=== PATIENT | female | born 1960 | race African-American/Black ===

== ENCOUNTER 2018-06-22 09:42 | Emergency (ER) | payer OTHER ==
[2018-06-22] MEDS ORDERED: NA CHLORIDE 0.9% 1,000 ML ONE (10:43)
--- NOTE | 2018-06-22 10:57 | RAD REPORT ---
EXAM DESCRIPTION: CT - Head Brain Wo Cont - 06/22/2018 10:45 am CLINICAL HISTORY: hypertension Headache COMPARISON: HEAD BRAIN W O CONTRAST dated 12/23/2013; HEAD BRAIN W O CONTRAST dated 04/18/2008 TECHNIQUE: All CT scans are performed using dose optimization technique as appropriate and may inclu de automated exposure control or mA/KV adjustment according to patient size. FINDINGS: No intracranial hemorrhage, hydrocephalus or extra-axial fluid collection.No areas of brai n edema or evidence of midline shift. The paranasal sinuses and mastoids are clear. The calvarium is intact. IMPRESSION: No acute intracranial abnormality.
[2018-06-22 11:14] LABS: Urine Blood 2+ (NEG); Urine Glucose NEGATIVE (NEG); Urine Protein 2+ (NEG)
[2018-06-22] MEDS ORDERED: cloNIDine HCl 0.1 MG TAB ONE (11:18)
[2018-06-22] MEDS ORDERED: ASPIRIN 81 MG CHEWABLE TABLET ONE (11:18)
[2018-06-22] MEDS ORDERED: AMLODIPINE 5 MG TAB ONE (11:18)
--- NOTE | 2018-06-22 11:50 | RAD REPORT ---
EXAM DESCRIPTION: RAD - Chest Single View - 06/22/2018 11:26 am CLINICAL HISTORY: hypertension Chest pain. COMPARISON: Chest Single View dated 02/17/2018; Chest Pa And Lat (2 Views) dated 06/02/2017; Chest Pa And Lat (2 Views) dated 03/08/2016; CHEST SINGLE VIEW dated 08/11/2015 FINDINGS: Portable technique limits examination quality. The lungs are grossly clear. The heart is mildly prominent size with a tortuous thoracic aorta. No di splaced fractures. IMPRESSION: No acute intrathoracic process suspected.
[2018-06-22 12:44] LABS: Absolute Lymphocytes (CBC) 1.6 K/uL (0.7-4.9); Absolute Monocytes 0.4 K/uL (0.1-1.3); Absolute Neutrophil 6.3 K/uL (1.8-8.0); Basophils % 0.5 % (0-1.3); Eosinophils % 0.3 % (0-4.4); Hematocrit 41.2 % (36.0-45.0); Lymphocytes % 18.5 % (15.3-44.8); MCH 33.2 pg (27.0-35.0); MCV 94.8 fL (80-100); MPV 7.6 fL (7.6-11.3); Monocytes % 5.2 % (3.3-12.3); Protime INR 1.01; RBC Red Blood Cell Count 4.34 M/uL (3.86-4.86)
[2018-06-22] MEDS ORDERED: HYDRALAZINE HCL 20 MG/ML VIAL ONE (12:53)
[2018-06-22 13:08] LABS: BUN Blood Urea Nitrogen 8 mg/dL (7-18); Bicarbonate 28 mmol/L (21-32); Glucose Level 107 mg/dL (74-106); Potassium 3.1 mmol/L (3.5-5.1); Sodium Level 139 mmol/L (136-145)
[2018-06-22 13:09] LABS: ALT/SGPT 17 U/L (12-78); AST/SGOT 16 U/L (15-37); Albumin 3.2 g/dL (3.4-5.0); Alkaline Phosphatase 67 U/L (45-117); Bilirubin Direct 0.1 mg/dL (0-0.2); Bilirubin Total 0.5 mg/dL (0.2-1.0); CKMB Creatine Kinase MB 1.4 ng/mL (0.3-3.6); Creatine Phosphokinase 99 U/L (26-192); NT PRO-BNP 1542 pg/mL (<125)
[2018-06-22] MEDS ORDERED: POTASSIUM 25 MEQ EFFERV TAB ONE (13:37)
--- NOTE | 2018-06-22 14:02 | EKG ---
Test Date: 2018-06-22 Test Time: 09:50:56 Freight Conductor: VINAY MEASUREMENT RESULTS: Intervals: Rate: 90 OH: 156 QRSD: 84 QT: 394 QTc: 481 [place]: P: 53 OH: 156 QRS: -9 T: 32 INTERPRETIVE STATEMENTS: Normal sinus rhythm Voltage criteria for left ventricular hypertrophy Cannot rule out Septal infarct, age undetermined Abnormal ECG Compared to ECG 02/17/2018 14:39:54 Left ventricular hypertrophy now present Myocardial infarct finding now present Sinus tachycardia no longer present Atrial abnormality no longer present ST (T wave) deviation no longer present Electronically Signed On 06-22-18 14:01:36 CDT by Long Canada
--- NOTE | 2018-06-22 14:03 | ER ---
Nurse's Notes [facility] Name: Afua Cunningham Age: 57 yrs Sex: Female : 1960 Arrival Date: 06/22/2018 Time: 09:49 Bed 18 Private MD: Diagnosis: Hypertensive heart disease Presentation: 06/22 09:50 Presenting complaint: EMS states: been complaining of high blood pressure and weakness hj for a week now, denies headache or any pain; BGL- 138; 98.3 temp; 98% on RA; BP- L arm- 216/135; R arm BP- 229/112; did not take BP meds today and doesn't know the meds name;. Transition of care: patient was not received from another setting of care. Onset of symptoms was June 22, 2018. Risk Assessment: Do you want to hurt yourself or someone else? Patient reports no desire to harm self or others. Initial Sepsis Screen: Does the patient meet any 2 criteria? No. Patient's initial sepsis screen is negative. Does the patient have a suspected source of infection? No. Patient's initial sepsis screen is negative. Care prior to arrival: None. 09:50 Method Of Arrival: EMS: [facility] 09:50 Acuity: ASHA 3 hj Triage Assessment: 09:54 General: Appears in no apparent distress. uncomfortable, Behavior is calm, cooperative, hj appropriate for age. Pain: Denies pain. EENT: No signs and/or symptoms were reported regarding the EENT system. Neuro: Level of Consciousness is awake, alert, obeys commands, Oriented to person, place, time, situation, Appropriate for age. Cardiovascular: Capillary refill < 3 seconds Patient's skin is warm and dry. Respiratory: Airway is patent Respiratory effort is even, unlabored, Respiratory pattern is regular, symmetrical. GI: No signs and/or symptoms were reported involving the gastrointestinal system. : No signs and/or symptoms were reported regarding the genitourinary system. Derm: No signs and/or symptoms reported regarding the dermatologic system. Musculoskeletal: No signs and/or symptoms reported regarding the musculoskeletal system. Historical: - Allergies: 09:54 No Known Allergies; hj - Home Meds: 09:54 amlodipine 10 mg tab 1 tab once daily [Active]; carvedilol 6.25 mg Oral tab [Active]; hj losartan 100 mg Oral tab 1 tab once daily [Active]; pantoprazole 20 mg Oral TbEC [Active]; trazodone 100 mg Oral tab [Active]; venlafaxine Oral [Active]; - PMHx: 09:54 Anxiety; Asthma; Back pain; Depression; fx in middle of back; GERD; Hypertension; hj - PSHx: 09:54 Tubal ligation; right eye; cyst removed from ears; hj - Immunization history:: Adult Immunizations up to date. - Social history:: Smoking status: Patient/guardian denies using tobacco. - Ebola Screening: : Patient negative for fever greater than or equal to 101.5 degrees Fahrenheit, and additional compatible Ebola Virus Disease symptoms Patient denies exposure to infectious person Patient denies travel to an Ebola-affected area in the 21 days before illness onset. Screenin:52 Abuse screen: Denies threats or abuse. Denies injuries from another. Nutritional hj screening: No deficits noted. Tuberculosis screening: No symptoms or risk factors identified. Fall Risk None identified. Assessment: 11:13 General: Appears in no apparent distress. comfortable, Behavior is calm, cooperative, aj appropriate for age. Pain: Denies pain. Neuro: Level of Consciousness is awake, alert, obeys commands, Oriented to person, place, time, situation, Appropriate for age Robotics Systems Engineer are equal bilaterally Moves all extremities. Full function Gait is steady, Speech is normal, Facial symmetry appears normal, Pupils are PERRLA, Reports weakness Generalized weakness for 3 days, reported. Respiratory: Airway is patent Respiratory effort is even, unlabored, Respiratory pattern is regular, symmetrical. Derm: Skin is intact, is healthy with good turgor, Skin is pink, warm \\T\\ dry. normal. 13:12 Reassessment: Patient wheeled to nurses station and used phone to call daughter. aj Wheeled back to room and placed in bed on monitors. 14:15 Reassessment: Patient is refusing to leave stating "I'm too weak to sign and too weak aj to leave." Patient observed walking to nurses station and bathroom 4 different times. Alert and oriented. Patient dialed phone and called daughter at nurses station twice. 14:18 Reassessment: Charge nurse notified. aj 14:40 Reassessment: pt initially refused to get out of bed upon discharge, pt stated that she iw could not move because she was too weak, pt was observed moving her legs freely in bed, pt sat up on her own in bed, pt then stated that she was going to walk to the bathroom but she was going to come back to the room, I advised pt that she would be sent to [facility] after using the bathroom, pt was walked to the lobby after using the bathroom, I asked pt is she would like something to eat and drink and that I would call her daughter again, I also offered to get pt a bus coupon, pt stated that she would wait for me to bring her the coupon. I received a phone call back from her daughter Martha and was told that the daughter would be by the pt house at 6 pm to check on her and that the pt is very capable of riding the bus on her own. I went to check pn pt, she was not in waiting area and was not in parking lot. Vital Signs: 09:55 BP 234 / 121; Pulse 90; Resp 18; Temp 98.1(O); Pulse Ox 99% on R/A; Weight 76.2 kg; hj Height 5 ft. 4 in. (162.56 cm); Pain 0/10; 11:13 BP 220 / 112; Pulse 88; Resp 20; Pulse Ox 98% on R/A; aj 11:14 BP 225 / 100; Pulse 87; Resp 17; Pulse Ox 96% on R/A; ae1 11:47 BP 218 / 102; Pulse 86; Resp 18; Pulse Ox 98% on R/A; ae1 12:00 BP 206 / 102; Pulse 89; Resp 16; Pulse Ox 98% on R/A; ae1 12:50 BP 184 / 89; Pulse 79; Resp 17; Pulse Ox 99% on R/A; ae1 13:14 BP 172 / 73; Pulse 92; Resp 20; Pulse Ox 99% on R/A; aj 14:15 BP 163 / 86; Pulse 88; Resp 16; Pulse Ox 99% on R/A; aj 09:55 Body Mass Index 28.84 (76.20 kg, 162.56 cm) ED Course: 09:49 Patient arrived in ED. 09:52 Triage completed. 09:55 Arm band placed on right wrist. 09:55 Patient has correct armband on for positive identification. Placed in gown. Bed in low hj position. Call light in reach. Side rails up X 1. 09:59 Shayne Russ PA is PHCP. cp 09:59 Shayne Hobbs MD is Attending Physician. cp 10:02 EKG done, by licensed psychiatric technician. reviewed by Shayne Hobbs MD. at1 10:34 Osorio Acosta, RN is Primary Nurse. hj 10:44 CT completed. Patient tolerated procedure well. Patient moved to CT via wheelchair. vr Patient moved back from CT. 10:45 CT Head Brain wo Cont In Process Unspecified. EDMS 11:14 Inserted saline lock: 22 gauge in right wrist, using aseptic technique. Missed aj attempt(s): 20 gauge in right antecubital area. Bleeding controlled, band aid applied, catheter tip intact. 11:23 X-ray completed. Portable x-ray completed in exam room. Patient tolerated procedure la2 well. 11:26 XRAY Chest (1 view) In Process Unspecified. EDMS 14:02 Long Canada MD is Referral Physician. cp 14:15 IV discontinued, intact, bleeding controlled, No redness/swelling at site. Pressure aj dressing applied. 14:40 No provider procedures requiring assistance completed. iw Administered Medications: 11:15 Drug: Norvasc 10 mg Route: PO; ae1 11:15 Drug: cloNIDine 0.2 mg Route: PO; ae1 11:15 Drug: Aspirin Chewable Tablet 324 mg Route: PO; ae1 11:22 Drug: NS 0.9% 500 ml Route: IV; Rate: bolus; Site: right hand; ae1 11:53 Follow up: IV Status: Completed infusion ae1 11:52 Drug: NS 0.9% 1000 ml Route: IV; Rate: 100 ml/hr; Site: right hand; ae1 12:50 Drug: hydrALAZINE 10 mg Route: IV; Rate: calculated rate; Site: right antecubital; aj 13:38 Drug: Potassium Effervescent Tablet 50 mEq Route: PO; aj Outcome: 14:02 Discharge ordered by . cp 14:40 Discharged to home ambulatory. iw 14:40 Condition: good 14:40 Discharge instructions given to patient, Instructed on discharge instructions, follow up and referral plans. Demonstrated understanding of instructions, follow-up care. 14:43 Patient left the ED. iw Signatures: Dispatcher [employer] EDMS Neli Keita, RN RN Bernadette Holman, RN RN Amber Vega Amanda, slackline operator EKG Tat1 Osorio Acosta, RN RN Shayne Chapman PA PA cp Elliott, Andrea RN RN ae1 Ruthie Anderson
--- NOTE | 2018-06-22 14:03 | EDPHYS ---
Physician Documentation [facility] Name: Afua Cunningham Age: 57 yrs Sex: Female : 1960 Arrival Date: 06/22/2018 Time: 09:49 Bed 18 Private MD: ED Physician Shayne Hobbs HPI: 06/22 10:38 This 57 yrs old Black Female presents to ER via EMS with complaints of High Blood cp Pressure. 10:38 The patient has elevated blood pressure and discovered this at home. Associated signs cp and symptoms: Pertinent positives: weakness, Pertinent negatives: chest pain, headache, vomiting. Severity of symptoms: At its worst the blood pressure was 234 mm Hg, in the emergency department the blood pressure is unchanged, despite home interventions. Historical: - Allergies: 09:54 No Known Allergies; hj - Home Meds: 09:54 amlodipine 10 mg tab 1 tab once daily [Active]; carvedilol 6.25 mg Oral tab [Active]; hj losartan 100 mg Oral tab 1 tab once daily [Active]; pantoprazole 20 mg Oral TbEC [Active]; trazodone 100 mg Oral tab [Active]; venlafaxine Oral [Active]; - PMHx: 09:54 Anxiety; Asthma; Back pain; Depression; fx in middle of back; GERD; Hypertension; hj - PSHx: 09:54 Tubal ligation; right eye; cyst removed from ears; hj - Immunization history:: Adult Immunizations up to date. - Social history:: Smoking status: Patient/guardian denies using tobacco. - Ebola Screening: : Patient negative for fever greater than or equal to 101.5 degrees Fahrenheit, and additional compatible Ebola Virus Disease symptoms Patient denies exposure to infectious person Patient denies travel to an Ebola-affected area in the 21 days before illness onset. ROS: 10:45 Constitutional: Negative for body aches, chills, fever, poor PO intake. cp 10:45 Eyes: Negative for injury, pain, redness, and discharge. cp 10:45 ENT: Negative for drainage from ear(s), ear pain, sore throat, difficulty swallowing, difficulty handling secretions. 10:45 Cardiovascular: Negative for chest pain, edema, palpitations. 10:45 Respiratory: Negative for cough, shortness of breath, wheezing. 10:45 Abdomen/GI: Negative for abdominal pain, vomiting, diarrhea, constipation, black/tarry stool, rectal bleeding. 10:45 MS/extremity: Negative for injury or acute deformity, decreased range of motion, paresthesias, swelling, tenderness. 10:45 Skin: Negative for cellulitis, rash. 10:45 Neuro: Positive for general weakness, Negative for headache, syncope, near syncope, visual changes. 10:45 All other systems are negative. Exam: 10:00 ECG was reviewed by the Attending Physician. cp 10:52 Constitutional: The patient appears in no acute distress, alert, awake, non-toxic, well cp developed, well nourished. 10:52 Head/Face: Normocephalic, atraumatic. cp 10:52 Eyes: Periorbital structures: appear normal, Pupils: equal, round, and reactive to light and accomodation, Extraocular movements: intact throughout, Conjunctiva: normal, no exudate, no injection, Lids and lashes: appear normal, bilaterally. 10:52 ENT: External ear(s): are unremarkable, Ear canal(s): are normal, clear, TM's: bulging, is not appreciated, bilaterally, dullness, bilaterally, erythema, is not appreciated, bilaterally, Nose: is normal, Mouth: Lips: moist, Oral mucosa: pink and intact, moist, Posterior pharynx: is normal, airway is patent, no erythema, no exudate. 10:52 Neck: ROM/movement: is normal, is supple, without pain, no range of motions limitations, no nuchal rigidity, Lymph nodes: no appreciated lymphadenopathy. 10:52 Chest/axilla: Inspection: normal, Palpation: is normal, no crepitus, no tenderness. 10:52 Cardiovascular: Rate: normal, Rhythm: regular, Pulses: Pulses are 2+ in right radial artery and left radial artery. Edema: is not appreciated, JVD: is not appreciated. 10:52 Respiratory: the patient does not display signs of respiratory distress, Respirations: normal, no use of accessory muscles, no retractions, no splinting, no tachypnea, Breath sounds: are clear throughout, no decreased breath sounds, no stridor, no wheezing. 10:52 Abdomen/GI: Inspection: abdomen appears normal, Bowel sounds: active, all quadrants, Palpation: abdomen is soft and non-tender, in all quadrants, rebound tenderness, is not appreciated, voluntary guarding, is not appreciated, involuntary guarding, is not appreciated. 10:52 Back: pain, is absent, ROM is normal. 10:52 Skin: cellulitis, is not appreciated, no rash present. 10:52 Neuro: Orientation: to person, place \T\ time. Mentation: lucid, able to follow commands, Cerebellar function: is grossly normal, Motor: moves all fours, strength is normal, Sensation: no obvious gross deficits. Vital Signs: 09:55 BP 234 / 121; Pulse 90; Resp 18; Temp 98.1(O); Pulse Ox 99% on R/A; Weight 76.2 kg; hj Height 5 ft. 4 in. (162.56 cm); Pain 0/10; 11:13 BP 220 / 112; Pulse 88; Resp 20; Pulse Ox 98% on R/A; aj 11:14 BP 225 / 100; Pulse 87; Resp 17; Pulse Ox 96% on R/A; ae1 11:47 BP 218 / 102; Pulse 86; Resp 18; Pulse Ox 98% on R/A; ae1 12:00 BP 206 / 102; Pulse 89; Resp 16; Pulse Ox 98% on R/A; ae1 12:50 BP 184 / 89; Pulse 79; Resp 17; Pulse Ox 99% on R/A; ae1 13:14 BP 172 / 73; Pulse 92; Resp 20; Pulse Ox 99% on R/A; aj 14:15 BP 163 / 86; Pulse 88; Resp 16; Pulse Ox 99% on R/A; aj 09:55 Body Mass Index 28.84 (76.20 kg, 162.56 cm) MDM: 10:04 Patient medically screened. mar 11:00 Differential diagnosis: hypertensive crisis, Malignant HTN, CVA, intracerebral cp hemorrhage. 14:00 Data reviewed: vital signs, nurses notes, lab test result(s), EKG, radiologic studies, cp CT scan, plain films. 14:00 Test interpretation: by ED physician or midlevel provider: ECG, plain radiologic cp studies. 14:00 Response to treatment: the patient's symptoms have markedly improved after treatment, cp VSS. Blood pressure improved. No signs of respiratory distress. Will discharge to home for continued monitoring. 06/22 10:34 Order name: Basic Metabolic Panel; Complete Time: 13:22 cp 06/22 13:22 Interpretation: Normal except: K 3.1; GLUC 107; CA 8.4. cp 06/22 10:34 Order name: CBC with Diff; Complete Time: 13:22 cp 06/22 13:24 Interpretation: Normal except: SAÚL% 75.5. cp 06/22 10:34 Order name: Ckmb; Complete Time: 13:22 cp 06/22 10:34 Order name: CPK; Complete Time: 13:22 cp 06/22 10:34 Order name: LFT's; Complete Time: 13:22 cp 06/22 13:23 Interpretation: Normal except: ALB 3.2; GLOB 3.8; A/G 0.8. cp 06/22 10:34 Order name: Magnesium; Complete Time: 13:22 cp 06/22 10:34 Order name: NT PRO-BNP; Complete Time: 13:22 cp 06/22 13:59 Interpretation: Abnormal: NT PRO-BNP 1542. cp 06/22 10:34 Order name: PT-INR; Complete Time: 13:22 cp 06/22 10:34 Order name: Ptt, Activated; Complete Time: 13:22 cp 06/22 10:34 Order name: Troponin (emerg Dept Use Only); Complete Time: 13:55 cp 06/22 10:34 Order name: XRAY Chest (1 view); Complete Time: 11:59 cp 06/22 12:00 Interpretation: Report review. 06/22 10:34 Order name: CT Head Brain wo Cont; Complete Time: 11:59 cp 06/22 10:56 Order name: Urine Dipstick--Ancillary (enter results); Complete Time: 11:59 06/22 11:59 Interpretation: Normal except: UBLD 2+; UPROT 2+. cp 06/22 10:34 Order name: Urine Test (obtain specimen); Complete Time: 11:23 cp 06/22 10:34 Order name: EKG; Complete Time: 10:34 cp 06/22 10:34 Order name: Cardiac monitoring; Complete Time: 10:35 cp 06/22 10:34 Order name: EKG - Nurse/Tech; Complete Time: 10:35 cp 06/22 10:34 Order name: IV Saline Lock; Complete Time: 11:22 cp 06/22 10:34 Order name: Labs collected and sent; Complete Time: 11:23 cp 06/22 10:34 Order name: O2 Per Protocol; Complete Time: 10:35 cp 06/22 10:34 Order name: O2 Sat Monitoring; Complete Time: 10:35 cp 06/22 10:34 Order name: Urine Dipstick-Ancillary (obtain specimen); Complete Time: 11:23 cp 06/22 11:18 Order name: Labs - recollect needed bd EC:00 Rate is 90 beats/min. Rhythm is regular. MS interval is normal. QRS interval is normal. cp QT interval is normal. T waves are Inverted in lead III. Interpreted by me. Reviewed by me. Administered Medications: 11:15 Drug: Norvasc 10 mg Route: PO; ae1 11:15 Drug: cloNIDine 0.2 mg Route: PO; ae1 11:15 Drug: Aspirin Chewable Tablet 324 mg Route: PO; ae1 11:22 Drug: NS 0.9% 500 ml Route: IV; Rate: bolus; Site: right hand; ae1 11:53 Follow up: IV Status: Completed infusion ae1 11:52 Drug: NS 0.9% 1000 ml Route: IV; Rate: 100 ml/hr; Site: right hand; ae1 12:50 Drug: hydrALAZINE 10 mg Route: IV; Rate: calculated rate; Site: right antecubital; aj 13:38 Drug: Potassium Effervescent Tablet 50 mEq Route: PO; aj Disposition: 06/23 07:17 Co-signature as Attending Physician, Shayne Hobbs MD I agree with the assessment and mar plan of care. Disposition: 06/22/18 14:02 Discharged to Home. Impression: Hypertensive heart disease. - Condition is Stable. - Discharge Instructions: Hypertension, How to Take Your Blood Pressure, [id number], Managing Your Hypertension. - Medication Reconciliation Form, Thank You Letter, Antibiotic Education, Prescription Opioid Use form. - Follow up: Long Canada MD; When: 1 - 2 days; Reason: Recheck today's complaints. - Problem is chronic. - Symptoms have improved. Signatures: Dispatcher [employer] EDMS Honey Currie Amanda, RN RN aj Anderson, Corey, MD MD cha Williams, Irene, RN RN iw Joaquin, Henry, RN RN hj Page, Corey, PA PA cp Elliott, Andrea, RN RN ae1 Corrections: (The following items were deleted from the chart) 06/22 13:22 13:22 Normal except: K 3.1; GLUC 107. cp cp 14:43 14:02 06/22/2018 14:02 Discharged to Home. Impression: Hypertensive heart disease. iw Condition is Stable. Forms are Medication Reconciliation Form, Thank You Letter, Antibiotic Education, Prescription Opioid Use. Follow up: Long Canada; When: 1 - 2 days; Reason: Recheck today's complaints. Problem is chronic. Symptoms have improved. cp
[2018-06-22 14:53] VITALS: O2SAT 99
[2018-06-22 14:55] VITALS: BP 163/86
[2018-06-22 14:59] VITALS: TEMP 98.2
== END 2018-06-22 14:43 | disposition home or self-care (01) ==
LOC: ER 09:42
DX: I11.9 Hypertensive heart disease without heart failure (principal); I10 Essential (primary) hypertension; F32.9 Major depressive disorder, single episode, unspecified; F41.9 Anxiety disorder, unspecified
CPT/HCPCS: 36415; 70450; 71045; 80048; 80076; 81003; 82550; 82553; 83735; 83880; 84484; 85025; 85610; 85730; 93005; J0360; J7030; 96361; 96374; 99284

== ENCOUNTER 2018-07-21 14:52 | Emergency (ER) | payer OTHER ==
--- NOTE | 2018-07-21 15:29 | RAD REPORT ---
EXAM DESCRIPTION: RAD - Lumbar Spine 3 Views - 07/21/2018 3:23 pm CLINICAL HISTORY: PAIN Radiculopathy COMPARISON: Lumbar Spine 3 Views dated 11/10/2017; LUMBAR SPINE 3 VIEWS dated 02/20/2009; SPINE LUMBA R W OBLIQUE dated 01/08/1990 FINDINGS: Diffuse osteopenia is seen. Mild degenerative anterolisthesis of L4 on 5 is seen. No acute compression fracture observed. Mild spondylosis is noted at L2-3. IMPRESSION: No acute finding demonstrated.
--- NOTE | 2018-07-21 15:30 | RAD REPORT ---
EXAM DESCRIPTION: RAD - Pelvis - 07/21/2018 3:23 pm CLINICAL HISTORY: PAIN COMPARISON: No comparisons FINDINGS: Degenerative changes are present involving both hips. No acute fracture or dislocation. No AVN.
[2018-07-21 15:40] LABS: Urine Blood 2+ (NEG); Urine Glucose NEGATIVE (NEG); Urine Protein 1+ (NEG); Urine Specific Gravity >1.030 (1.005-1.030)
[2018-07-21 16:14] LABS: Urine Bacteria NONE SEEN /HPF (<20); Urine Culture Reflex Order NOT NEEDED; Urine Mucus 1+ /HPF (NONE SEEN)
[2018-07-21] MEDS ORDERED: HYDROCODONE/APAP 10/325 TAB ONE (16:19)
--- NOTE | 2018-07-21 16:19 | ER ---
Nurse's Notes [facility] Name: Afua Cunningham Age: 57 yrs Sex: Female : 1960 Arrival Date: 07/21/2018 Time: 14:53 Bed 10 Private MD: Teto Atkinson E Diagnosis: Fall due to bumping against object;Low back pain;Hematuria;Hematuria, unspecified Presentation: 07/21 15:00 Presenting complaint: Patient states: I slipped and fell, hurt my lower back 8 days ch ago. it hurts when I move and walk. Transition of care: patient was not received from another setting of care. Onset of symptoms was July 13, 2018. Risk Assessment: Do you want to hurt yourself or someone else? Patient reports no desire to harm self or others. Initial Sepsis Screen: Does the patient meet any 2 criteria? No. Patient's initial sepsis screen is negative. Does the patient have a suspected source of infection? No. Patient's initial sepsis screen is negative. Care prior to arrival: None. 15:00 Method Of Arrival: Ambulatory 15:00 Acuity: ASHA 3 ch Triage Assessment: 15:02 General: Appears in no apparent distress. comfortable, Behavior is calm, cooperative, ch appropriate for age. Pain: Complains of pain in back Pain currently is 10 out of 10 on a pain scale. Musculoskeletal: Range of motion: intact in all extremities, Swelling absent. Historical: - Allergies: 15:02 No Known Allergies; ch - Home Meds: 15:02 amlodipine 10 mg tab 1 tab once daily [Active]; carvedilol 6.25 mg Oral tab [Active]; ch losartan 100 mg Oral tab 1 tab once daily [Active]; pantoprazole 20 mg Oral TbEC [Active]; trazodone 100 mg Oral tab [Active]; venlafaxine Oral [Active]; - PMHx: 15:02 Anxiety; Asthma; Back pain; Depression; fx in middle of back; GERD; Hypertension; UTI; ch - Immunization history:: Adult Immunizations up to date, Last tetanus immunization: not indicated for visit today. Pneumococcal vaccine is not up to date, Flu vaccine is not up to date. - Social history:: Smoking status: Patient uses tobacco products, smokes one pack cigarettes per day. Patient uses alcohol, Patient/guardian denies using street drugs. - Ebola Screening: : Patient negative for fever greater than or equal to 101.5 degrees Fahrenheit, and additional compatible Ebola Virus Disease symptoms Patient denies exposure to infectious person Patient denies travel to an Ebola-affected area in the 21 days before illness onset No symptoms or risks identified at this time. - Family history:: not pertinent. Screenin:35 Abuse screen: Denies threats or abuse. Denies injuries from another. Nutritional aj screening: No deficits noted. Tuberculosis screening: No symptoms or risk factors identified. Fall Risk None identified. Assessment: 15:35 General: Appears in no apparent distress. comfortable, Behavior is calm, cooperative, aj appropriate for age. Pain: Complains of pain in lumbar area, low back area and mid back area. Neuro: Level of Consciousness is awake, alert, obeys commands, Oriented to person, place, time, situation, Appropriate for age. Respiratory: Airway is patent Respiratory effort is even, unlabored, Respiratory pattern is regular, symmetrical. Derm: Skin is intact, is healthy with good turgor, Skin is pink, warm \T\ dry. normal. Musculoskeletal: Reports pain in low back area and mid back area. 16:35 Reassessment: Patient appears in no apparent distress at this time. No changes from aj previously documented assessment. Patient and/or family updated on plan of care and expected duration. Pain level reassessed. Patient is alert, oriented x 3, equal unlabored respirations, skin warm/dry/pink. Patient states symptoms have improved. Vital Signs: 15:02 BP 154 / 90; Pulse 88; Resp 16; Temp 98.3; Pulse Ox 99% on R/A; Weight 71.67 kg; Height 5 ft. 1 in. (154.94 cm); Pain 10/10; 16:35 BP 149 / 89; Pulse 87; Resp 19; Pulse Ox 96% on R/A; aj 15:02 Body Mass Index 29.85 (71.67 kg, 154.94 cm) ED Course: 14:53 Patient arrived in ED. sb2 14:54 Teto Atkinson MD is Private Physician. sb2 15:01 Triage completed. ch 15:02 Arm band placed on left wrist. 15:21 XRAY Lumbar Spine (3 Views) In Process Unspecified. EDMS 15:21 Shayne Hobbs MD is Attending Physician. [facility] 15:23 XRAY Pelvis In Process Unspecified. EDMS 15:35 Neli Keita, RN is Primary Nurse. aj 15:35 Patient has correct armband on for positive identification. aj 16:19 Teto Atkinson MD is Referral Physician. [facility] 16:35 No provider procedures requiring assistance completed. Patient did not have IV access aj during this emergency room visit. Administered Medications: 16:23 Drug: [place] 10 mg-325 mg 1 tabs Route: PO; aj 16:36 Follow up: Response: No adverse reaction; Pain is decreased aj Outcome: 16:19 Discharge ordered by . [facility] 16:35 Discharged to home ambulatory. aj 16:35 Condition: good 16:35 Discharge instructions given to patient, Instructed on discharge instructions, follow up and referral plans. medication usage, Demonstrated understanding of instructions, follow-up care, medications, Prescriptions given X 3. 16:37 Patient left the ED. aj Signatures: Dispatcher [employer] EDCarol Fox RN RN ch Myers, Amanda, CAROLINA RN Shayne Harris MD MD cha Billeau, Sheri sb2
--- NOTE | 2018-07-21 16:19 | EDPHYS ---
Physician Documentation [facility] Name: Afua Cunningham Age: 57 yrs Sex: Female : 1960 Arrival Date: 07/21/2018 Time: 14:53 Bed 10 Private MD: Teto Atkinson E ED Physician Shayne Hobbs HPI: 07/21 16:08 This 57 yrs old Black Female presents to ER via Ambulatory with complaints of Back Pain.mar 16:08 The patient presents with pain that is acute. The symptoms are located in the low back, mar lumbar area and sacrum. Onset: The symptoms/episode began/occurred 8 day(s) ago. The pain does not radiate. Associated signs and symptoms: The patient has no apparent associated signs or symptoms. Modifying factors: The patient symptoms are alleviated by remaining still, the patient symptoms are aggravated by movement. Severity of symptoms: At their worst the symptoms were mild, moderate, in the emergency department the symptoms are unchanged. The patient has not experienced similar symptoms in the past. Historical: - Allergies: 15:02 No Known Allergies; ch - Home Meds: 15:02 amlodipine 10 mg tab 1 tab once daily [Active]; carvedilol 6.25 mg Oral tab [Active]; ch losartan 100 mg Oral tab 1 tab once daily [Active]; pantoprazole 20 mg Oral TbEC [Active]; trazodone 100 mg Oral tab [Active]; venlafaxine Oral [Active]; - PMHx: 15:02 Anxiety; Asthma; Back pain; Depression; fx in middle of back; GERD; Hypertension; UTI; ch - Immunization history:: Adult Immunizations up to date, Last tetanus immunization: not indicated for visit today. Pneumococcal vaccine is not up to date, Flu vaccine is not up to date. - Social history:: Smoking status: Patient uses tobacco products, smokes one pack cigarettes per day. Patient uses alcohol, Patient/guardian denies using street drugs. - Ebola Screening: : Patient negative for fever greater than or equal to 101.5 degrees Fahrenheit, and additional compatible Ebola Virus Disease symptoms Patient denies exposure to infectious person Patient denies travel to an Ebola-affected area in the 21 days before illness onset No symptoms or risks identified at this time. - Family history:: not pertinent. ROS: 16:08 Constitutional: Negative for fever, chills, and weight loss, Eyes: Negative for injury, mar pain, redness, and discharge, ENT: Negative for injury, pain, and discharge, Neck: Negative for injury, pain, and swelling, Cardiovascular: Negative for chest pain, palpitations, and edema, Respiratory: Negative for shortness of breath, cough, wheezing, and pleuritic chest pain, Abdomen/GI: Negative for abdominal pain, nausea, vomiting, diarrhea, and constipation, : Negative for injury, bleeding, discharge, and swelling, MS/Extremity: Negative for injury and deformity, Skin: Negative for injury, rash, and discoloration, Neuro: Negative for headache, weakness, numbness, tingling, and seizure, Psych: Negative for depression, anxiety, suicide ideation, homicidal ideation, and hallucinations, Allergy/Immunology: Negative for hives, rash, and allergies, Endocrine: Negative for neck swelling, polydipsia, polyuria, polyphagia, and marked weight changes, Hematologic/Lymphatic: Negative for swollen nodes, abnormal bleeding, and unusual bruising. 16:08 Back: Positive for decreased range of motion, pain at rest, pain with movement, of the lumbar area and sacrum. Exam: 16:08 Constitutional: This is a well developed, well nourished patient who is awake, alert, mar and in no acute distress. Head/Face: Normocephalic, atraumatic. Eyes: Pupils equal round and reactive to light, extra-ocular motions intact. Lids and lashes normal. Conjunctiva and sclera are non-icteric and not injected. Cornea within normal limits. Periorbital areas with no swelling, redness, or edema. ENT: Nares patent. No nasal discharge, no septal abnormalities noted. Tympanic membranes are normal and external auditory canals are clear. Oropharynx with no redness, swelling, or masses, exudates, or evidence of obstruction, uvula midline. Mucous membranes moist. Neck: Trachea midline, no thyromegaly or masses palpated, and no cervical lymphadenopathy. Supple, full range of motion without nuchal rigidity, or vertebral point tenderness. No Meningismus. Chest/axilla: Normal chest wall appearance and motion. Nontender with no deformity. No lesions are appreciated. Cardiovascular: Regular rate and rhythm with a normal S1 and S2. No gallops, murmurs, or rubs. Normal PMI, no JVD. No pulse deficits. Respiratory: Lungs have equal breath sounds bilaterally, clear to auscultation and percussion. No rales, rhonchi or wheezes noted. No increased work of breathing, no retractions or nasal flaring. Abdomen/GI: Soft, non-tender, with normal bowel sounds. No distension or tympany. No guarding or rebound. No evidence of tenderness throughout. Female : Normal external genitalia. Skin: Warm, dry with normal turgor. Normal color with no rashes, no lesions, and no evidence of cellulitis. MS/ Extremity: Pulses equal, no cyanosis. Neurovascular intact. Full, normal range of motion. Neuro: Awake and alert, GCS 15, oriented to person, place, time, and situation. Cranial nerves II-XII grossly intact. Motor strength 5/5 in all extremities. Sensory grossly intact. Cerebellar exam normal. Normal gait. Psych: Awake, alert, with orientation to person, place and time. Behavior, mood, and affect are within normal limits. 16:08 Back: pain, that is mild, that is moderate, ROM is painful, normal spinal alignment noted, CVA tenderness, is absent, vertebral tenderness, is not appreciated, muscle spasm, is appreciated in the left low back, left mid back, right mid back and right low back. Vital Signs: 15:02 BP 154 / 90; Pulse 88; Resp 16; Temp 98.3; Pulse Ox 99% on R/A; Weight 71.67 kg; Height ch 5 ft. 1 in. (154.94 cm); Pain 10/10; 16:35 BP 149 / 89; Pulse 87; Resp 19; Pulse Ox 96% on R/A; aj 15:02 Body Mass Index 29.85 (71.67 kg, 154.94 cm) MDM: 15:21 Patient medically screened. [facility] 16:08 Data reviewed: vital signs, nurses notes, lab test result(s), radiologic studies, plain mar films. 07/21 15:38 Order name: Urine Dipstick--Ancillary (enter results); Complete Time: 15:41 bd 07/21 15:44 Order name: Urine Microscopic Only; Complete Time: 16:19 mar 07/21 15:04 Order name: XRAY Lumbar Spine (3 Views); Complete Time: 15:41 07/21 15:04 Order name: XRAY Pelvis; Complete Time: 15:41 07/21 16:20 Order name: Urine Culture [facility] Administered Medications: 16:23 Drug: [place] 10 mg-325 mg 1 tabs Route: PO; aj 16:36 Follow up: Response: No adverse reaction; Pain is decreased Disposition: 07/21/18 16:19 Discharged to Home. Impression: Fall due to bumping against object, Low back pain, Hematuria, Hematuria, unspecified. - Condition is Stable. - Discharge Instructions: Chronic Back Pain, Hematuria, Adult, Fall Prevention in the Home, Back Injury Prevention, [id number], Back Pain, Adult, [id number], Back Exercises, [id number]. - Prescriptions for Tylenol- Codeine #3 300-30 mg Oral Tablet - take 2 tablets by ORAL route every 6 hours As needed; 26 tablet. Motrin IB 200 mg Oral Tablet - take 1 tablet by ORAL route every 6 hours As needed as needed with food; 20 tablet. Bactrim DS 800- 160 mg Oral Tablet - take 1 tablet by ORAL route every 12 hours for 5 days; 10 tablet. - Medication Reconciliation Form, Thank You Letter, Antibiotic Education, Prescription Opioid Use form. - Follow up: Teto Atkinson; When: 2 - 3 days; Reason: Recheck today's complaints, Continuance of care, Re-evaluation by your physician. - Problem is new. - Symptoms have improved. Signatures: Dispatcher [employer] EDCarol Fox RN RN ch Myers, Amanda, RN RN aj Anderson, Corey, MD MD cha Corrections: (The following items were deleted from the chart) 16:37 16:19 07/21/2018 16:19 Discharged to Home. Impression: Fall due to bumping against object; Low back pain; Hematuria; Hematuria, unspecified. Condition is Stable. Discharge Instructions: Chronic Back Pain, Fall Prevention in the Home, Back Injury Prevention, [id number]-[id number], Back Pain, Adult, Yvhe-[id number], Back Exercises, [id number]-xf-[id number]. Prescriptions for Tylenol-Codeine #3 300-30 mg Oral Tablet - take 2 tablets by ORAL route every 6 hours As needed; 26 tablet, Motrin IB 200 mg Oral Tablet - take 1 tablet by ORAL route every 6 hours As needed as needed with food; 20 tablet. and Forms are Medication Reconciliation Form, Thank You Letter, Antibiotic Education, Prescription Opioid Use. Follow up: Teto Atkinson; When: 2 - 3 days; Reason: Recheck today's complaints, Continuance of care, Re-evaluation by your physician. Problem is new. Symptoms have improved. mar
[2018-07-21 16:51] VITALS: TEMP 98.3
[2018-07-21 16:52] VITALS: BP 149/89; O2SAT 96
== END 2018-07-21 16:37 | disposition home or self-care (01) ==
LOC: ER 14:52
DX: M54.5 Low back pain (principal); R31.9 Hematuria, unspecified; W18.00XA Striking against unspecified object with subsequent fall, initial encounter; Y93.9 Activity, unspecified; Y92.9 Unspecified place or not applicable; I10 Essential (primary) hypertension; F17.210 Nicotine dependence, cigarettes, uncomplicated; F32.9 Major depressive disorder, single episode, unspecified; F41.9 Anxiety disorder, unspecified
CPT/HCPCS: 72100; 72170; 81003; 81015; 87086; 87088; 99283

== ENCOUNTER 2018-08-17 07:30 | Observation (INO) | payer MEDICARE, OTHER ==
[2018-08-17] MEDS ORDERED: ASPIRIN 81 MG CHEWABLE TABLET ONE (08:00)
[2018-08-17] MEDS ORDERED: METOPROLOL TAR 50 MG TAB ONE (08:00)
[2018-08-17] MEDS ORDERED: LORazepam 2 MG/ML VIAL ONE (08:03)
[2018-08-17] MEDS ORDERED: HYDRALAZINE HCL 20 MG/ML VIAL ONE (08:04)
[2018-08-17] MEDS ORDERED: HYDRALAZINE HCL 10 MG TABLET ONE (08:04)
[2018-08-17] MEDS ORDERED: METOPROLOL TARTRATE 5 MG/5 ML INJ IV ONE (08:05)
[2018-08-17] MEDS ORDERED: NA CHLORIDE 0.9% 500 ML ONE (08:05)
[2018-08-17] MEDS ORDERED: FAMOTIDINE 20 MG/2 ML VIAL IV ONE (08:05)
[2018-08-17 08:11] LABS: Absolute Lymphocytes (CBC) 2.2 K/uL (0.7-4.9); Absolute Monocytes 0.5 K/uL (0.1-1.3); Absolute Neutrophil 6.6 K/uL (1.8-8.0); Basophils % 0.7 % (0-1.3); Eosinophils % 0.2 % (0-4.4); Hematocrit 40.7 % (36.0-45.0); Lymphocytes % 24.1 % (15.3-44.8); MCH 33.5 pg (27.0-35.0); MCV 95.6 fL (80-100); MPV 7.7 fL (7.6-11.3); Monocytes % 4.9 % (3.3-12.3); RBC Red Blood Cell Count 4.26 M/uL (3.86-4.86)
[2018-08-17 08:12] LABS: Protime INR 1.08
[2018-08-17 08:30] LABS: ALT/SGPT 24 U/L (12-78); AST/SGOT 23 U/L (15-37); Albumin 3.9 g/dL (3.4-5.0); Alkaline Phosphatase 105 U/L (45-117); BUN Blood Urea Nitrogen 4 mg/dL (7-18); Bicarbonate 29 mmol/L (21-32); Bilirubin Direct 0.1 mg/dL (0-0.2); Bilirubin Total 0.5 mg/dL (0.2-1.0); Glucose Level 129 mg/dL (74-106); Lipase 84 U/L (73-393); Magnesium 1.6 mg/dL (1.8-2.4); NT PRO-BNP 918 pg/mL (<125); Protein, Total 8.1 g/dL (6.4-8.2); Sodium Level 140 mmol/L (136-145); Troponin (Emerg Dept Use Only) < 0.02 ng/mL (0.0-0.045)
[2018-08-17 08:33] LABS: Potassium 2.5 mmol/L (3.5-5.1)
--- NOTE | 2018-08-17 08:38 | ER ---
Nurse's Notes [facility] Name: Afua Cunningham Age: 57 yrs Sex: Female : 1960 Arrival Date: 08/17/2018 Time: 07:30 Bed 7 Private MD: Diagnosis: Chest pain, unspecified;Essential (primary) hypertension;Hypomagnesemia;Hypokalemia Presentation: 08/17 07:30 Presenting complaint: Patient states: "I called the ambulance because I've been feeling aa5 shaky and I haven't eaten in about 3 days because I have no appetite". EMS reports upon arrival pt's BP was 242/137 and most current BP was 212/127. Pt denies N/V/D. Pt denies pain. Transition of care: patient was not received from another setting of care. Onset of symptoms was August 17, 2018. Risk Assessment: Do you want to hurt yourself or someone else? Patient reports no desire to harm self or others. Initial Sepsis Screen: Does the patient meet any 2 criteria? HR > 90 bpm. Does the patient have a suspected source of infection? No. Patient's initial sepsis screen is negative. Care prior to arrival: Glucose check: 101. 07:30 Method Of Arrival: EMS: [facility] aa5 07:30 Acuity: ASHA 2 aa5 Triage Assessment: 10:14 General: Behavior is calm, cooperative. tw2 Historical: - Allergies: 07:34 No Known Allergies; tw2 - Home Meds: 07:34 venlafaxine Oral [Active]; trazodone 100 mg Oral tab [Active]; pantoprazole 20 mg Oral tw2 TbEC [Active]; losartan 100 mg Oral tab 1 tab once daily [Active]; carvedilol 6.25 mg Oral tab [Active]; amlodipine 10 mg tab 1 tab once daily [Active]; - PMHx: 07:34 Anxiety; Asthma; Back pain; Depression; fx in middle of back; GERD; Hypertension; UTI; tw2 - Immunization history:: Adult Immunizations unknown, Flu vaccine is not up to date. - Social history:: Smoking status: Patient uses tobacco products, smokes one pack cigarettes per day. Smoking status: Patient uses tobacco products, smokes one pack cigarettes per day. - Ebola Screening: : Patient denies travel to an Ebola-affected area in the 21 days before illness onset No symptoms or risks identified at this time. Screenin:35 Abuse screen: Denies threats or abuse. Nutritional screening: No deficits noted. tw2 Tuberculosis screening: No symptoms or risk factors identified. Fall Risk None identified. Assessment: 07:35 General: Appears in no apparent distress. Pain: Denies pain. Neuro: Level of tw2 Consciousness is awake, alert, obeys commands, Oriented to person, place, time, situation. Cardiovascular: Denies chest pain, shortness of breath, Heart tones S1 S2 Capillary refill < 3 seconds. Respiratory: Airway is patent Respiratory effort is even, unlabored, Respiratory pattern is regular, symmetrical, Breath sounds are clear bilaterally. GI: No signs and/or symptoms were reported involving the gastrointestinal system. Abdomen is round non-distended, Bowel sounds present X 4 quads. : No signs and/or symptoms were reported regarding the genitourinary system. EENT: No signs and/or symptoms were reported regarding the EENT system. Derm: No signs and/or symptoms reported regarding the dermatologic system. Musculoskeletal: Circulation, motion, and sensation intact. Range of motion: intact in all extremities. 08:18 Reassessment: Patient appears in no apparent distress at this time. No changes from tw2 previously documented assessment. Patient and/or family updated on plan of care and expected duration. Pain level reassessed. Patient is alert, oriented x 3, equal unlabored respirations, skin warm/dry/pink. 09:23 Reassessment: Patient appears in no apparent distress at this time. No changes from tw2 previously documented assessment. Patient and/or family updated on plan of care and expected duration. Pain level reassessed. Patient is alert, oriented x 3, equal unlabored respirations, skin warm/dry/pink. 09:45 Reassessment: Patient appears in no apparent distress at this time. No changes from tw2 previously documented assessment. Patient and/or family updated on plan of care and expected duration. Pain level reassessed. Patient is alert, oriented x 3, equal unlabored respirations, skin warm/dry/pink. 10:15 Reassessment: Patient appears in no apparent distress at this time. No changes from tw2 previously documented assessment. Patient and/or family updated on plan of care and expected duration. Pain level reassessed. Patient is alert, oriented x 3, equal unlabored respirations, skin warm/dry/pink. Vital Signs: 07:30 BP 223 / 105; Pulse 109; Resp 20; Pulse Ox 98% on R/A; Pain 0/10; tw2 07:34 BP 183 / 121; Pulse 108; Resp 20; Pulse Ox 98% on R/A; tw2 07:36 Temp 98.7(O); Weight 79.38 kg (R); tw2 08:17 BP 207 / 100; Pulse 87; Resp 18; Pulse Ox 98% on R/A; tw2 08:29 BP 180 / 99; Pulse 82; Resp 18; Pulse Ox 99% on R/A; tw2 09:23 BP 185 / 91; Pulse 77; Resp 22; Pulse Ox 99% on R/A; tw2 09:44 BP 112 / 93; Pulse 79; Resp 19; Pulse Ox 97% on R/A; tw2 10:12 BP 158 / 88; Pulse 80; Resp 16; Pulse Ox 98% on R/A; tw2 07:30 provider notified of blood pressure tw2 ED Course: 07:30 Patient arrived in ED. aa5 07:30 Lucy Klein, RN is Primary Nurse. tw2 07:33 Triage completed. aa5 07:34 Arm band placed on. tw2 07:34 Patient has correct armband on for positive identification. Placed in gown. Bed in low aa5 position. Call light in reach. Side rails up X2. 07:35 Shayne Hobbs MD is Attending Physician. mar 07:38 Inserted saline lock: 20 gauge in right antecubital area, using aseptic technique. dh3 Blood collected. 07:45 EKG done, by biochemistry technician. reviewed by Shayne Hobbs MD. at1 07:57 Initial lab(s) drawn, by fl, sent to lab. dh3 08:12 Urine collected: clean catch specimen, jessica colored. dh3 08:21 X-ray completed. Portable x-ray completed in exam room. Patient tolerated procedure sw well. 08:22 XRAY Chest (1 view) In Process Unspecified. EDMS 08:36 Cecy Oliveros MD is Hospitalizing Provider. mar 08:52 Inserted saline lock: 20 gauge in left antecubital area, using aseptic technique. dh3 10:13 No provider procedures requiring assistance completed. Patient admitted, IV remains in tw2 place. Administered Medications: Discontinued: NS 0.9% 1000 ml IV at 75 ml/hr continuous 08:00 Drug: Ativan 1 mg Route: IVP; Site: right antecubital; tw2 08:32 Follow up: Response: No adverse reaction tw2 08:05 Drug: hydrALAZINE 10 mg Route: IV; Rate: per protocol; Site: right antecubital; tw2 08:13 Follow up: Response: No adverse reaction; Blood pressure is lowered; IV Status: tw2 Completed infusion 08:10 Drug: Lopressor 5 mg Route: IVP; Site: right antecubital; tw2 08:32 Follow up: Response: No adverse reaction; Blood pressure is lowered tw2 08:14 Drug: Aspirin Chewable Tablet 162 mg Route: PO; 2 08:16 Follow up: Response: No adverse reaction 2 08:15 Drug: NS 0.9% 1000 ml Route: IV; Rate: 75 ml/hr; Site: right antecubital; tw2 10:20 Follow up: Response: No adverse reaction; IV Status: Order to discontinue infusion tw2 08:15 Drug: hydrALAZINE 10 mg Route: PO; tw2 08:33 Follow up: Response: No adverse reaction 2 08:33 Follow up: Response: No adverse reaction 2 08:16 Drug: Lopressor (metoprolol TARTRATE) 50 mg Route: PO; tw2 08:32 Follow up: Response: No adverse reaction tw2 08:16 Drug: Pepcid 20 mg Route: IVP; Site: right antecubital; tw2 08:16 Follow up: Response: No adverse reaction tw2 08:50 Drug: Potassium Effervescent Tablet 50 mEq Route: PO; 2 08:57 Follow up: Response: No adverse reaction tw2 08:50 Drug: Potassium Chloride 20 mEq Route: IV; Rate: per protocol; Site: right antecubital; tw2 10:19 Follow up: IV Status: Infusion continued upon admission tw2 08:50 Drug: NS 0.9% with KCl 20 mEq/L 1000 ml Route: IV; Rate: 100 ml/hr; Site: right tw2 antecubital; 10:19 Follow up: IV Status: Infusion continued upon admission tw2 08:56 Drug: Magnesium Sulfate 1 grams Route: IVPB; Infused Over: 1 hrs; Site: left tw2 antecubital; 09:57 Follow up: Response: No adverse reaction; IV Status: Completed infusion tw2 10:15 Drug: Potassium Effervescent Tablet 25 mEq Route: PO; tw2 10:16 Follow up: Response: No adverse reaction tw2 Outcome: 08:37 Decision to Hospitalize by Provider. mar 10:13 Admitted to Med/surg accompanied by tech, room 431, with chart, Report called to tw2 CAROLINA Gordon 10:13 Condition: stable 10:13 Instructed on the need for admit. 10:21 Patient left the ED. tw2 Signatures: Dispatcher [employer] EDMS Shayne Hobbs MD MD cha Calderon, Audri, RN RN aa5 Neli Alaniz, social services technician EKG Tat1 Shaunna Dunlap Tara RN RN tw2 Didi Kim 3 Corrections: (The following items were deleted from the chart) 07:33 07:30 Care prior to arrival: None. sue rogers 07:37 07:30 BP 223 / 105; Pulse 109bpm; Resp 20bpm; Pulse Ox 98% RA; Pain 0/10; provider tw2 notified.; tw2
--- NOTE | 2018-08-17 08:38 | EDPHYS ---
Physician Documentation [facility] Name: Afua Cunningham Age: 57 yrs Sex: Female : 1960 Arrival Date: 08/17/2018 Time: 07:30 Bed 7 Private MD: ED Physician Shayne Hobbs HPI: 08/17 07:49 This 57 yrs old Black Female presents to ER via EMS with complaints of Doesn't Feel mar Right. 07:49 The patient or guardian reports chest pain that is located primarily in the anterior mar chest wall. Onset: 1 day(s) ago. The patient's problem is reported as weakness. Onset: The symptoms/episode began/occurred 1 day(s) ago. Duration: The episode is continuous. Severity of symptoms: At their worst the symptoms were mild in the emergency department the symptoms have improved mildly. Severity of pain: At its worst the pain was mild in the emergency department the pain is unchanged. Historical: - Allergies: 07:34 No Known Allergies; tw2 - Home Meds: 07:34 venlafaxine Oral [Active]; trazodone 100 mg Oral tab [Active]; pantoprazole 20 mg Oral tw2 TbEC [Active]; losartan 100 mg Oral tab 1 tab once daily [Active]; carvedilol 6.25 mg Oral tab [Active]; amlodipine 10 mg tab 1 tab once daily [Active]; - PMHx: 07:34 Anxiety; Asthma; Back pain; Depression; fx in middle of back; GERD; Hypertension; UTI; tw2 - Immunization history:: Adult Immunizations unknown, Flu vaccine is not up to date. - Social history:: Smoking status: Patient uses tobacco products, smokes one pack cigarettes per day. Smoking status: Patient uses tobacco products, smokes one pack cigarettes per day. - Ebola Screening: : Patient denies travel to an Ebola-affected area in the 21 days before illness onset No symptoms or risks identified at this time. ROS: 07:51 Constitutional: Negative for fever, chills, and weight loss, Eyes: Negative for injury, mar pain, redness, and discharge, ENT: Negative for injury, pain, and discharge, Neck: Negative for injury, pain, and swelling, Respiratory: Negative for shortness of breath, cough, wheezing, and pleuritic chest pain, Abdomen/GI: Negative for abdominal pain, nausea, vomiting, diarrhea, and constipation, Back: Negative for injury and pain, : Negative for injury, bleeding, discharge, and swelling, MS/Extremity: Negative for injury and deformity, Skin: Negative for injury, rash, and discoloration, Neuro: Negative for headache, weakness, numbness, tingling, and seizure, Allergy/Immunology: Negative for hives, rash, and allergies, Endocrine: Negative for neck swelling, polydipsia, polyuria, polyphagia, and marked weight changes, Hematologic/Lymphatic: Negative for swollen nodes, abnormal bleeding, and unusual bruising. 07:51 Cardiovascular: Positive for chest pain, of the chest. 07:51 MS/extremity: Negative for acute changes. 07:51 Psych: Positive for anxiety. Exam: 07:51 Constitutional: This is a well developed, well nourished patient who is awake, alert, mar and in no acute distress. Head/Face: Normocephalic, atraumatic. Eyes: Pupils equal round and reactive to light, extra-ocular motions intact. Lids and lashes normal. Conjunctiva and sclera are non-icteric and not injected. Cornea within normal limits. Periorbital areas with no swelling, redness, or edema. ENT: Nares patent. No nasal discharge, no septal abnormalities noted. Tympanic membranes are normal and external auditory canals are clear. Oropharynx with no redness, swelling, or masses, exudates, or evidence of obstruction, uvula midline. Mucous membranes moist. Neck: Trachea midline, no thyromegaly or masses palpated, and no cervical lymphadenopathy. Supple, full range of motion without nuchal rigidity, or vertebral point tenderness. No Meningismus. Chest/axilla: Normal chest wall appearance and motion. Nontender with no deformity. No lesions are appreciated. Cardiovascular: Regular rate and rhythm with a normal S1 and S2. No gallops, murmurs, or rubs. Normal PMI, no JVD. No pulse deficits. Respiratory: Lungs have equal breath sounds bilaterally, clear to auscultation and percussion. No rales, rhonchi or wheezes noted. No increased work of breathing, no retractions or nasal flaring. Abdomen/GI: Soft, non-tender, with normal bowel sounds. No distension or tympany. No guarding or rebound. No evidence of tenderness throughout. Back: No spinal tenderness. No costovertebral tenderness. Full range of motion. Skin: Warm, dry with normal turgor. Normal color with no rashes, no lesions, and no evidence of cellulitis. MS/ Extremity: Pulses equal, no cyanosis. Neurovascular intact. Full, normal range of motion. Neuro: Awake and alert, GCS 15, oriented to person, place, time, and situation. Cranial nerves II-XII grossly intact. Motor strength 5/5 in all extremities. Sensory grossly intact. Cerebellar exam normal. Normal gait. Psych: Awake, alert, with orientation to person, place and time. Behavior, mood, and affect are within normal limits. 07:51 Musculoskeletal/extremity: DVT Exam: No signs of deep vein thrombosis. no pain, no swelling, no tenderness, negative Homans' sign noted on exam, no appreciated bluish discoloration, no erythema, no increased warmth. 07:54 Radiologist reports: not ordered [place] Vital Signs: 07:30 BP 223 / 105; Pulse 109; Resp 20; Pulse Ox 98% on R/A; Pain 0/10; tw2 07:34 BP 183 / 121; Pulse 108; Resp 20; Pulse Ox 98% on R/A; tw2 07:36 Temp 98.7(O); Weight 79.38 kg (R); tw2 08:17 BP 207 / 100; Pulse 87; Resp 18; Pulse Ox 98% on R/A; tw2 08:29 BP 180 / 99; Pulse 82; Resp 18; Pulse Ox 99% on R/A; tw2 09:23 BP 185 / 91; Pulse 77; Resp 22; Pulse Ox 99% on R/A; tw2 09:44 BP 112 / 93; Pulse 79; Resp 19; Pulse Ox 97% on R/A; tw2 10:12 BP 158 / 88; Pulse 80; Resp 16; Pulse Ox 98% on R/A; tw2 07:30 provider notified of blood pressure tw2 MDM: 07:35 Patient medically screened. [place] 07:54 Data reviewed: vital signs, nurses notes, lab test result(s), EKG, radiologic studies, mar plain films. 08/17 07:49 Order name: Basic Metabolic Panel [place] 08/17 07:49 Order name: CBC with Diff; Complete Time: 08:24 [place] 08/17 07:49 Order name: LFT's; Complete Time: 08:35 mar 08/17 07:49 Order name: Magnesium; Complete Time: 08:35 [place] 08/17 07:49 Order name: NT PRO-BNP; Complete Time: 08:35 [place] 08/17 07:49 Order name: PT-INR; Complete Time: 08:24 [place] 08/17 07:49 Order name: Troponin (emerg Dept Use Only); Complete Time: 08:35 [place] 08/17 07:49 Order name: XRAY Chest (1 view); Complete Time: 10:05 [place] 08/17 07:49 Order name: Lipase; Complete Time: 08:35 mar 08/17 07:49 Order name: UDS; Complete Time: 10:05 [place] 08/17 07:49 Order name: Basic Metabolic Panel; Complete Time: 08:35 [place] 08/17 08:12 Order name: Urine Microscopic Only; Complete Time: 10:05 dh3 08/17 08:32 Order name: Urine Dipstick--Ancillary (enter results); Complete Time: 10:05 08/17 08:34 Order name: Phosphorus; Complete Time: 10:05 [place] 08/17 07:49 Order name: EKG; Complete Time: 07:49 [place] 08/17 08:46 Order name: CONS Physician Consult [facility] 08/17 08:47 Order name: Echo with Doppler [facility] 08/17 07:49 Order name: Cardiac monitoring; Complete Time: 07:49 [place] 08/17 07:49 Order name: EKG - Nurse/Tech; Complete Time: 07:49 [place] 08/17 07:49 Order name: IV Saline Lock; Complete Time: 07:50 [place] 08/17 07:49 Order name: Labs collected and sent; Complete Time: 07:50 [place] 08/17 07:49 Order name: O2 Per Protocol; Complete Time: 07:50 [place] 08/17 07:49 Order name: O2 Sat Monitoring; Complete Time: 07:50 [place] 08/17 07:49 Order name: Urine Dipstick-Ancillary (obtain specimen); Complete Time: 08:12 [place] Administered Medications: Discontinued: NS 0.9% 1000 ml IV at 75 ml/hr continuous 08:00 Drug: Ativan 1 mg Route: IVP; Site: right antecubital; tw2 08:32 Follow up: Response: No adverse reaction tw2 08:05 Drug: hydrALAZINE 10 mg Route: IV; Rate: per protocol; Site: right antecubital; tw2 08:13 Follow up: Response: No adverse reaction; Blood pressure is lowered; IV Status: tw2 Completed infusion 08:10 Drug: Lopressor 5 mg Route: IVP; Site: right antecubital; tw2 08:32 Follow up: Response: No adverse reaction; Blood pressure is lowered tw2 08:14 Drug: Aspirin Chewable Tablet 162 mg Route: PO; tw2 08:16 Follow up: Response: No adverse reaction tw2 08:15 Drug: NS 0.9% 1000 ml Route: IV; Rate: 75 ml/hr; Site: right antecubital; tw2 10:20 Follow up: Response: No adverse reaction; IV Status: Order to discontinue infusion tw2 08:15 Drug: hydrALAZINE 10 mg Route: PO; tw2 08:33 Follow up: Response: No adverse reaction tw2 08:33 Follow up: Response: No adverse reaction tw2 08:16 Drug: Lopressor (metoprolol TARTRATE) 50 mg Route: PO; tw2 08:32 Follow up: Response: No adverse reaction tw2 08:16 Drug: Pepcid 20 mg Route: IVP; Site: right antecubital; tw2 08:16 Follow up: Response: No adverse reaction tw2 08:50 Drug: Potassium Effervescent Tablet 50 mEq Route: PO; tw2 08:57 Follow up: Response: No adverse reaction tw2 08:50 Drug: Potassium Chloride 20 mEq Route: IV; Rate: per protocol; Site: right antecubital; tw2 10:19 Follow up: IV Status: Infusion continued upon admission tw2 08:50 Drug: NS 0.9% with KCl 20 mEq/L 1000 ml Route: IV; Rate: 100 ml/hr; Site: right tw2 antecubital; 10:19 Follow up: IV Status: Infusion continued upon admission tw2 08:56 Drug: Magnesium Sulfate 1 grams Route: IVPB; Infused Over: 1 hrs; Site: left tw2 antecubital; 09:57 Follow up: Response: No adverse reaction; IV Status: Completed infusion tw2 10:15 Drug: Potassium Effervescent Tablet 25 mEq Route: PO; tw2 10:16 Follow up: Response: No adverse reaction tw2 Disposition: 08/17/18 08:37 Hospitalization ordered by Cecy Oliveros for Observation. Preliminary diagnosis are Chest pain, unspecified, Essential (primary) hypertension, Hypomagnesemia, Hypokalemia. - Bed requested for Telemetry/MedSurg (observation). - Status is Observation. tw2 - Condition is Fair. - Problem is new. - Symptoms have improved. UTI on Admission? No Signatures: Dispatcher [employer] EDMS Rosey HoneyShayne Becker MD MD cha Calderon, Audri, RN RN [phone] Lucy Klein RN RN tw2 Corrections: (The following items were deleted from the chart) 09:57 08:37 Hospitalization Ordered by Cecy Oliveros MD for Observation. Preliminary bd diagnosis is Chest pain, unspecified; Essential (primary) hypertension; Hypomagnesemia; Hypokalemia. Bed requested for Telemetry/MedSurg (observation). Status is Observation. Condition is Fair. Problem is new. Symptoms have improved. UTI on Admission? No. [place] 10:21 09:57 08/17/2018 08:37 Hospitalization Ordered by Cecy Oliveros MD for Observation. tw2 Preliminary diagnosis is Chest pain, unspecified; Essential (primary) hypertension; Hypomagnesemia; Hypokalemia. Bed requested for Telemetry/MedSurg (observation). Status is Observation. Condition is Fair. Problem is new. Symptoms have improved. UTI on Admission? No. bd
[2018-08-17 08:43] LABS: Urine Blood 2+ (NEG); Urine Glucose NEGATIVE (NEG); Urine Protein 3+ (NEG); Urine Specific Gravity 1.025 (1.005-1.030); Urine pH 6.5 (5.0-7.0)
[2018-08-17] MEDS ORDERED: NS KCL 20MEQ 1,000 ML IV ONE (08:44)
[2018-08-17] MEDS ORDERED: POTASSIUM 25 MEQ EFFERV TAB ONE ×2 (08:44→10:17)
[2018-08-17] MEDS ORDERED: KCL 20 MEQ/100 mL IVPB 20 MEQ/100 ML BAG IV ONE (08:44)
[2018-08-17 08:52] LABS: Barbiturates NEGATIVE (NEGATIVE); Benzodiazepines NEGATIVE (NEGATIVE); Cocaine NEGATIVE (NEGATIVE); METHAMPHETAM NEGATIVE (NEGATIVE); Methadone NEGATIVE (NEGATIVE); Opiates POSITIVE (NEGATIVE); Phencyclidine NEGATIVE (NEGATIVE); THC Cannibis NEGATIVE (NEGATIVE)
[2018-08-17] MEDS ORDERED: MAGNESIUM SULFATE 1 gm IVPB 1 GM/100 ML BAG IV ONE (08:58)
[2018-08-17 09:11] LABS: Urine Bacteria 20-50 /HPF (<20); Urine Culture Reflex Order REFLEXED; Urine Mucus MOD /HPF (NONE SEEN)
--- NOTE | 2018-08-17 09:29 | RAD REPORT ---
EXAM DESCRIPTION: RAD - Chest Single View - 08/17/2018 8:24 am CLINICAL HISTORY: Chest pain COMPARISON: May 2018 TECHNIQUE: AP portable chest image was obtained 0811 hours . FINDINGS: Lungs are clear. Heart and vasculature are normal. No measurable pleural effusion and no p neumothorax. No gross bony abnormality seen. No acute aortic findings suspected. IMPRESSION: No acute cardiopulmonary process. No significant interval change.
[2018-08-17 10:34] VITALS: O2SAT 98
[2018-08-17] MEDS ORDERED: NA CHLORIDE 0.9% 1,000 ML IV SCH (10:43)
[2018-08-17] MEDS ORDERED: ONDANSETRON 4 MG/2 ML VIAL IV PRN (10:43)
[2018-08-17] MEDS ORDERED: ACETAMINOPHEN 500 MG TAB PO PRN (10:43)
[2018-08-17 10:53] VITALS: BP 188/97; TEMP 97.8
[2018-08-17 10:54] VITALS: BMI 31.4
--- NOTE | 2018-08-17 11:49 | EKG ---
Test Date: 2018-08-17 Test Time: 07:41:35 Soft Sugar Cutter: VINAY MEASUREMENT RESULTS: Intervals: Rate: 106 IN: 148 QRSD: 78 QT: 360 QTc: 478 Matthews: P: 57 IN: 148 QRS: -16 T: 47 INTERPRETIVE STATEMENTS: Sinus tachycardia Possible Left atrial enlargement Left ventricular hypertrophy with repolarization abnormality Cannot rule out Septal infarct, age undetermined Abnormal ECG Compared to ECG 06/22/2018 09:50:56 Early repolarization now present Sinus rhythm no longer present Myocardial infarct finding still present Electronically Signed On 08-17-18 11:48:20 CDT by [place]
[2018-08-17] MEDS ORDERED: INFLUENZA VACCINE (for 3y+) 0.5 ML DOSE IMVAC ONE (13:00)
[2018-08-17] MEDS ORDERED: PNEUMOCOCCAL VACCINE 0.5 ML IMVAC ONE (13:00)
[2018-08-17] MEDS ORDERED: POTASSIUM 25 MEQ EFFERV TAB PO ONE (13:50)
[2018-08-17] MEDS ORDERED: KCL 20 MEQ/100 mL IVPB 20 MEQ/100 ML BAG IV SCH (14:00)
[2018-08-17] MEDS ORDERED: ALBUTEROL INHALER 60 PUFF/8 GM IH PRN (14:03)
--- NOTE | 2018-08-17 14:10 | P.SSS ---
Patient History Date of Service: 08/17/18 Primary Care Provider: Dr Atkinson Reason for admission: Chest Pain History of Present Illness: This is a 57-year-old female with significant past medical history of hypertension, diabetes, anxiety who presented to the ED complaining of having some squeezing chest pain that started last night. Patient stated that usually she was in general state of health until she started having some problems difficulty sleeping overnight because of her calves making a lot of noise. Last night however patient felt that she was having a panic attack when her heart started having pain nothing helped with her pain and thus she decided to come to the ER today. Patient stated that she has had this episode before and she has had several panic attacks in the past as well. The patient denies having any shortness of breath nausea vomiting or any other associated symptoms all other than having a squeezing chest pain on the left side that is not radiating to any where. In the ER patient's EKG was negative troponin x1 was negative was admitted to the hospital for ACS rule out. Allergies No Known Allergies Allergy (Verified 08/17/18 11:42) Home Medications: Carvedilol [Coreg] 12.5 mg PO BID 05/09/16 Codeine/APAP [Tylenol W/Codeine #3 tab] 1 tab PO Q6HP PRN 05/09/16 Losartan Potassium 100 mg PO DAILY WITH BREAKFAST 05/09/16 Pantoprazole [Protonix Tab] 40 mg PO DAILY 05/09/16 Trazodone [Desyrel] 100 mg PO BEDTIME 05/09/16 Venlafaxine HCl [Effexor] 3 tab PO DAILY 05/09/16 clonazePAM [Klonopin] 1 mg PO BID 05/09/16 Albuterol Sulfate [Proair Hfa] 8.5 gm IH DAILYPRN PRN 11/21/16 Amlodipine [Norvasc] 10 mg PO DAILY 11/21/16 - Past Medical/Surgical History Has patient received pneumonia vaccine in the past: No Diabetic: Yes -: Migraines -: HTN -: hyperlipidemia -: ? kidney infection -: Tubal Ligation -: cyst removal in eyes and ears - Family History Mother -: Heart disease, Hypertension, Lung disease, Other (see notes) Notes: cholesterol Father History Unknown: Yes Sister -: Heart disease, Hypertension, Other (see notes) Notes: osteoarthritis - Social History Smoking Status: Current every day smoker Alcohol use: Yes CD- Drugs: No Caffeine use: Yes Place of Residence: Home Review of Systems 10-point ROS is otherwise unremarkable Physical Examination - Vital Signs Temperature: 97.8 F Blood Pressure: 188/97 Pulse: 79 Respirations: 18 Pulse Ox (%): 98 - Physical Exam General: Alert, In no apparent distress HEENT: Atraumatic, PERRLA, Mucous membr. moist/pink, EOMI, Sclerae nonicteric Neck: Supple, 2+ carotid pulse no bruit, No LAD, Without JVD or thyroid abnormality Respiratory: Clear to auscultation bilaterally, Normal air movement Cardiovascular: Regular rate/rhythm, Normal S1 S2 Gastrointestinal: Normal bowel sounds, No tenderness Musculoskeletal: No tenderness Integumentary: No rashes Neurological: Normal gait, Normal speech, Normal strength at 5/5 x4 extr, Normal tone, Normal affect Lymphatics: No axilla or inguinal lymphadenopathy - Studies Laboratory Data (last 24 hrs) 08/17/18 07:35: Phosphorus 3.3 08/17/18 07:35: PT 12.8 H, INR 1.08 08/17/18 07:35: WBC 9.3, Hgb 14.3, Hct 40.7, Plt Count 264 08/17/18 07:35: Sodium 140, Potassium 2.5 L*, BUN 4 L, Creatinine 0.60, Glucose 129 H, Magnesium 1.6 L, Total Bilirubin 0.5, AST 23, ALT 24, Alkaline Phosphatase 105, Lipase 84 - Diagnosis (Problem(s)) (1) Chest pain Current Visit: Yes Status: Acute Plan: Atypical chest pain most likely secondary to panic attack. -will get echocardiogram done at this time will trend troponin x2 at this time -if echocardiogram and troponin x2 were negative patient can have outpatient workup with cardiology -anticipate discharge in 24-48 hr Qualifiers: Chest pain type: other chest pain Qualified Code(s): R07.89 - Other chest pain; R07.8 - Other chest pain (2) Panic attack Current Visit: Yes Status: Acute Plan: Patient currently on Effexor and Klonopin. Advised to go to follow up with primary care provider for prescription of Klonopin and Effexor. (3) Hypomagnesemia Current Visit: Yes Status: Acute Plan: Will replace at this time (4) Hypokalemia Current Visit: No Status: Active Plan: Will replace at this time (5) HTN (hypertension) Current Visit: Yes Status: Chronic Plan: Will restart home medication at this time Qualifiers: Hypertension type: essential hypertension Qualified Code(s): I10 - Essential (primary) hypertension (6) Diabetes mellitus Current Visit: No Status: Chronic Plan: Will restart home medication at this time Treatment Summary: If patient's EKG, troponin x2, a echocardiogram is negative will discharge patient home and have outpatient workup with cardiology. Patient most likely had panic attacks and was asked to follow up with her primary care provider once discharged from here for appropriate therapy for anxiety versus panic attack. Patient demonstrated understanding. - Disposition Disposition: ROUTINE DISCHARGE
--- NOTE | 2018-08-17 15:31 | ECHO ---
HEIGHT: 5 ft 1 in WEIGHT: 166 lb 1.6 oz DATE OF STUDY: 08/17/[address]: Shayne Hobbs MD 2-DIMENSIONAL: YES M.MODE: YES DOPPLER: YES COLOR FLOW: YES TDS: NO PORTABLE: NO DEFINITY: NO BUBBLE STUDY: NO DIAGNOSIS: CHEST PAIN CARDIAC HISTORY: CATHERIZATION: NO SURGERY: NO PROSTHETIC VALVE: NO PACEMAKER: NO MEASUREMENTS (cm) DIASTOLIC (NORMALS) SYSTOLIC (NORMALS) IVSd 1.1 (0.6-1.2) LA Diam 3.2 (1.9-4.0) LVEF 53% LVIDd 4.1 (3.5-5.7) LVIDs 3.0 (2.0-3.5) %FS 27% LVPWd 1.1 (0.6-1.2) Ao Diam 2.7 (2.0-3.7) 2 DIMENSIONAL ASSESSMENT: RIGHT ATRIUM: NORMAL LEFT ATRIUM: NORMAL RIGHT VENTRICLE: NORMAL LEFT VENTRICLE: NORMAL TRICUSPID VALVE: NORMAL MITRAL VALVE: NORMAL PULMONIC VALVE: NORMAL AORTIC VALVE: NORMAL PERICARDIAL EFFUSION: NONE AORTIC ROOT: NORMAL LEFT VENTRICULAR WALL MOTION: NORMAL. DOPPLER/COLOR FLOW: MILD TRICUSPID REGURGITATION. ESTIMATED RIGHT VENTRICULAR SYSTOLIC PRESSURE 38mmHg (MILD PULMONARY HYPERTENSION). MILD AROTIC REGURGITATION, MILD MITRAL REGURGITATION. COMMENTS: NORMAL 2D ECHO ECHO. MILD AORTIC, MITRAL AND TRICUSPID REGURGITATION. MILD PULMONARY HYPERTENSION. TECHNOLOGIST: RAMO CASTELLANOS
[2018-08-17] MEDS ORDERED: ENOXAPARIN 40 MG/0.4 ML SQ SCH (17:00)
[2018-08-17] MEDS ORDERED: CARVEDILOL 12.5 MG TAB PO SCH (21:00)
[2018-08-18] MEDS ORDERED: LOSARTAN POTASSIUM 50 MG TABLET PO SCH (08:00)
[2018-08-18] MEDS ORDERED: AMLODIPINE 10 MG TAB PO SCH (09:00)
[2018-08-18] MEDS ORDERED: PANTOPRAZOLE 40MG TABLET PO SCH (09:00)
[2018-08-18] MEDS ORDERED: VENLAFAXINE HCL 75 MG TABLET PO SCH (09:00)
== END 2018-08-17 14:59 | disposition home or self-care (01) ==
LOC: ER 07:30 → ERHOLD 08:42 → 4TH 10:14
PROVIDERS: ADMIT Family Medicine; ATTEND Family Medicine
DX: R07.9 Chest pain, unspecified (principal); F41.0 Panic disorder [episodic paroxysmal anxiety]; E83.42 Hypomagnesemia; E87.6 Hypokalemia; I10 Essential (primary) hypertension; E11.9 Type 2 diabetes mellitus without complications
CPT/HCPCS: 36415; 71045; 80048; 80076; 80307 ×8; 82962; 83690; 83735; 83880; 84100; 84132; 84484; 85025; 85610; 87086; 87088; 93005; 93306; 99285; G0378 ×2; J0360; J3475; J7030; 81003; 81015

== ENCOUNTER 2018-08-20 16:06 | Emergency (ER) | payer MEDICARE, OTHER ==
--- NOTE | 2018-08-20 16:26 | RAD REPORT ---
EXAM DESCRIPTION: CT - Head Brain Wo Cont - 08/20/2018 4:19 pm CLINICAL HISTORY: Headache/hypertension COMPARISON: May 2018 TECHNIQUE: Computed axial tomography of the head was obtained. IV contrast was not requested. All CT scans are performed using dose optimization technique as appropriate and may include automated exposure control or mA/KV adjustment according to patient size. FINDINGS: An intracranial bleed is not seen . The ventricles are normal in caliber. No extra-axial fluid collection is noted. Fluid within the sinuses/ mastoids is not seen. IMPRESSION: No acute intracranial abnormality is seen. If patient's symptoms persist MRI of the bra in would be recommended.
[2018-08-20] MEDS ORDERED: cloNIDine HCl 0.1 MG TAB ONE ×2 (16:29→18:04)
[2018-08-20] MEDS ORDERED: NA CHLORIDE 0.9% 1,000 ML ONE ×2 (16:29→17:39)
[2018-08-20 16:36] LABS: Absolute Lymphocytes (CBC) 1.4 K/uL (0.7-4.9); Absolute Monocytes 0.4 K/uL (0.1-1.3); Absolute Neutrophil 5.1 K/uL (1.8-8.0); Basophils % 0.4 % (0-1.3); Eosinophils % 0.2 % (0-4.4); Hematocrit 38.9 % (36.0-45.0); Lymphocytes % 19.8 % (15.3-44.8); MCH 33.6 pg (27.0-35.0); MCV 95.8 fL (80-100); MPV 7.4 fL (7.6-11.3); Monocytes % 5.9 % (3.3-12.3); Protime INR 1.08; RBC Red Blood Cell Count 4.06 M/uL (3.86-4.86)
[2018-08-20 16:53] LABS: ALT/SGPT 22 U/L (12-78); AST/SGOT 16 U/L (15-37); Albumin 3.8 g/dL (3.4-5.0); Alkaline Phosphatase 99 U/L (45-117); BUN Blood Urea Nitrogen 5 mg/dL (7-18); Bicarbonate 28 mmol/L (21-32); Bilirubin Direct 0.1 mg/dL (0-0.2); Bilirubin Total 0.3 mg/dL (0.2-1.0); Glucose Level 109 mg/dL (74-106); Magnesium 1.8 mg/dL (1.8-2.4); Protein, Total 7.9 g/dL (6.4-8.2); Sodium Level 141 mmol/L (136-145); Troponin I < 0.02 ng/mL (0.0-0.045)
[2018-08-20 16:55] LABS: Potassium 2.8 mmol/L (3.5-5.1)
[2018-08-20] MEDS ORDERED: ASPIRIN 81 MG CHEWABLE TABLET ONE (16:58)
[2018-08-20] MEDS ORDERED: AMLODIPINE 5 MG TAB ONE (16:58)
--- NOTE | 2018-08-20 17:07 | RAD REPORT ---
EXAM DESCRIPTION: [place] Single View08/20/2018 4:59 pm CLINICAL HISTORY: Chest pain COMPARISON: 08/17/2018 FINDINGS: The lungs appear clear of acute infiltrate. The heart is borderline enlarged IMPRESSION: No acute abnormalities displayed
[2018-08-20] MEDS ORDERED: POTASSIUM 25 MEQ EFFERV TAB ONE ×2 (17:39→19:11)
[2018-08-20] MEDS ORDERED: KCL 20 MEQ/100 mL IVPB 20 MEQ/100 ML BAG IV ONE (17:40)
[2018-08-20] MEDS ORDERED: ACETAMINOPHEN 500 MG TAB ONE (17:53)
[2018-08-20 18:01] LABS: Urine Blood 1+ (NEG); Urine Glucose NEGATIVE (NEG); Urine Protein 1+ (NEG); Urine Specific Gravity 1.015 (1.005-1.030); Urine pH 6.5 (5.0-7.0)
[2018-08-20] MEDS ORDERED: MAGNE/ALUM HYDROXD 30 ML UCUP ONE (18:04)
[2018-08-20 18:09] LABS: Barbiturates NEGATIVE (NEGATIVE); Benzodiazepines NEGATIVE (NEGATIVE); Cocaine NEGATIVE (NEGATIVE); METHAMPHETAM NEGATIVE (NEGATIVE); Methadone NEGATIVE (NEGATIVE); Opiates POSITIVE (NEGATIVE); Phencyclidine NEGATIVE (NEGATIVE); THC Cannibis NEGATIVE (NEGATIVE)
[2018-08-20] MEDS ORDERED: LORAZEPAM 1 MG TABLET ONE (19:26)
--- NOTE | 2018-08-20 20:02 | ER ---
Nurse's Notes [facility] Name: Afua Cunningham Age: 57 yrs Sex: Female : 1960 Arrival Date: 08/20/2018 Time: 15:58 Bed 24 Private MD: Diagnosis: Hypertensive heart disease;Patient's other noncompliance with medication regimen Presentation: 08/20 15:59 Presenting complaint: EMS states: Pt c/o anxiety, reports that she saw oil coming out ph of her skin, denies drug use. Transition of care: patient was not received from another setting of care. Onset of symptoms was August 20, 2018. Risk Assessment: Do you want to hurt yourself or someone else? Patient reports no desire to harm self or others. Initial Sepsis Screen: Does the patient meet any 2 criteria? No. Patient's initial sepsis screen is negative. Does the patient have a suspected source of infection? No. Patient's initial sepsis screen is negative. Care prior to arrival: None. 15:59 Method Of Arrival: EMS: [facility] 15:59 Acuity: ASHA 3 ph Historical: - Allergies: 16:11 No Known Allergies; ph - Home Meds: 16:11 amlodipine 10 mg tab 1 tab once daily [Active]; carvedilol 6.25 mg Oral tab [Active]; ph losartan 100 mg Oral tab 1 tab once daily [Active]; pantoprazole 20 mg Oral chew [Active]; trazodone 100 mg Oral tab [Active]; venlafaxine Oral [Active]; - PMHx: 16:11 Anxiety; Asthma; Back pain; Depression; fx in middle of back; GERD; Hypertension; UTI; ph - Immunization history:: Adult Immunizations unknown. - Social history:: Smoking status: unknown. - Ebola Screening: : No symptoms or risks identified at this time. Screenin:12 Abuse screen: Denies threats or abuse. Denies injuries from another. Nutritional ph screening: No deficits noted. Tuberculosis screening: No symptoms or risk factors identified. Fall Risk None identified. Assessment: 16:11 Reassessment: attempted to call patient's daughter and granddaughter per request. No ss answer. Left VM on patient's daughter (Martha)'s phone. Martha: . Granddaughter [phone]. 16:15 General: Appears in no apparent distress. comfortable, Behavior is cooperative, ph anxious. Pain: Denies pain. Neuro: Level of Consciousness is awake, alert, obeys commands, Oriented to person, place, time, situation. Cardiovascular: Capillary refill < 3 seconds in bilateral fingers Patient's skin is warm and dry. Respiratory: Airway is patent Respiratory effort is even, unlabored. GI: No signs and/or symptoms were reported involving the gastrointestinal system. Derm: Skin is intact, Skin is pink, warm \T\ dry. Musculoskeletal: Circulation, motion, and sensation intact. Range of motion: intact in all extremities. 17:00 Reassessment: Patient appears in no apparent distress at this time. Patient and/or ph family updated on plan of care and expected duration. Pain level reassessed. Patient is alert, oriented x 3, equal unlabored respirations, skin warm/dry/pink. 18:00 Reassessment: Patient appears in no apparent distress at this time. Patient and/or ph family updated on plan of care and expected duration. Pain level reassessed. Patient is alert, oriented x 3, equal unlabored respirations, skin warm/dry/pink. Pt c/o headache, ERP notified, see MAR. 19:00 Reassessment: Patient appears in no apparent distress at this time. Patient and/or ph family updated on plan of care and expected duration. Pain level reassessed. Patient is alert, oriented x 3, equal unlabored respirations, skin warm/dry/pink. Pt reports that headache has improved, daughter at bedside and requesting to speak w/ provider, ERP notified. 20:04 Reassessment: Patient appears in no apparent distress at this time. Patient and/or aa1 family updated on plan of care and expected duration. Pain level reassessed. Patient is alert, oriented x 3, equal unlabored respirations, skin warm/dry/pink. Pt reports she is feeling much better and is ready to be discharged Patient states feeling better. 20:20 Reassessment: Patient appears in no apparent distress at this time. Patient is alert, aa1 oriented x 3, equal unlabored respirations, skin warm/dry/pink. Discussed d/c \T\ f/u instructions with pt \T\ daughter; denies questions or concerns at this time Patient denies pain at this time. Vital Signs: 16:08 BP 233 / 110; Pulse 110; Resp 22; Temp 97.5; Pulse Ox 96% on R/A; Pain 0/10; ph 16:31 BP 165 / 105; Pulse 106; Resp 20; Pulse Ox 98% on R/A; ph 17:00 BP 179 / 85; Pulse 99; Resp 18; Pulse Ox 99% on R/A; ph 17:30 BP 218 / 99; Pulse 101; Resp 16; Pulse Ox 98% on R/A; ph 18:00 BP 203 / 105; Pulse 98; Resp 18; Pulse Ox 99% on R/A; ph 18:35 BP 178 / 99; Pulse 94; Resp 16; Pulse Ox 98% on R/A; ph 18:54 BP 184 / 93; Pulse 91; Resp 16; Pulse Ox 96% on R/A; ph 19:21 BP 196 / 104; Pulse 100; Resp 18; Pulse Ox 95% on R/A; mt 20:02 BP 160 / 80; Pulse 90; Resp 18; Pulse Ox 97% on R/A; Pain 0/10; aa1 ED Course: 15:58 Patient arrived in ED. ph 15:59 Shayne Russ PA is PHCP. cp 15:59 Sonny Murray MD is Attending Physician. cp 16:08 Triage completed. ph 16:10 Initial lab(s) drawn, by me, sent to lab. Inserted saline lock: 22 gauge in right jp3 antecubital area, using aseptic technique. Blood collected. 16:11 Arm band placed on. ph 16:12 Patient has correct armband on for positive identification. Placed in gown. Bed in low ph position. Call light in reach. Side rails up X2. Pulse ox on. NIBP on. Warm blanket given. 16:14 EKG done, by mechanical laboratory technician. reviewed by Shayne REAVES. sm3 16:17 Isha Rosales, RN is Primary Nurse. ph 16:19 CT Head Brain wo Cont In Process Unspecified. EDMS 16:21 Troponin I Sent. jp3 16:21 Basic Metabolic Panel Sent. jp3 16:21 CBC with Diff Sent. jp3 16:21 LFT's Sent. jp3 16:21 Magnesium Sent. jp3 16:21 PT-INR Sent. jp3 16:59 XRAY Chest (1 view) In Process Unspecified. EDMS 20:01 Teto Atkinson MD is Referral Physician. cp 20:20 No provider procedures requiring assistance completed. IV discontinued, intact, aa1 bleeding controlled, No redness/swelling at site. Pressure dressing applied. Administered Medications: 16:30 Drug: NS 0.9% 1000 ml Route: IV; Rate: 1 bolus; Site: right antecubital; ph 18:15 Follow up: Response: No adverse reaction; IV Status: Completed infusion ph 16:30 Drug: cloNIDine 0.1 mg Route: PO; ph 17:30 Follow up: Response: No adverse reaction; Blood pressure is unchanged ph 16:56 Drug: Norvasc 10 mg Route: PO; ph 18:12 Follow up: Response: No adverse reaction; Blood pressure is unchanged ph 16:56 Drug: Aspirin Chewable Tablet 324 mg Route: PO; ph 18:12 Follow up: Response: No adverse reaction ph 17:43 Drug: Potassium Chloride 20 mEq Route: IV; Rate: calculated rate; Site: right ph antecubital; 19:45 Follow up: IV Status: Completed infusion aa1 17:44 Drug: Potassium Effervescent Tablet 50 mEq Route: PO; ph 18:12 Follow up: Response: No adverse reaction ph 17:44 Drug: NS 0.9% 1000 ml Route: IV; Rate: 1 bolus; Site: right antecubital; ph 19:45 Follow up: IV Status: Completed infusion aa1 18:11 Drug: cloNIDine 0.1 mg Route: PO; ph 18:14 Follow up: Response: No adverse reaction ph 18:12 Drug: Tylenol 1000 mg Route: PO; ph 19:13 Follow up: Response: No adverse reaction ph 18:12 Drug: Maalox Suspension (200 mg-200 mg-20 mg/5 mL) 30 ml Route: PO; ph 19:13 Follow up: Response: No adverse reaction ph 19:00 Drug: Potassium Effervescent Tablet 50 mEq Route: PO; ph 19:13 Follow up: Response: No adverse reaction ph 19:25 Drug: Ativan 1 mg Route: PO; aa1 20:10 Follow up: Response: No adverse reaction; Marked relief of symptoms aa1 Outcome: 20:02 Discharge ordered by . cp 20:20 Discharged to home ambulatory, with family. aa1 20:20 Condition: good 20:20 Discharge instructions given to patient, family, Instructed on discharge instructions, follow up and referral plans. medication usage, Demonstrated understanding of instructions, follow-up care, medications, Prescriptions given X 1. 20:21 Patient left the ED. aa1 Signatures: Dispatcher [employer] EDMS Emi Epperson RN RN aa1 Henna Naqvi RN RN Isha Dawson RN RN ph [place], JEAN PAUL Bella cp, Moriah mt Montes, Shakira 3 Glenn Hernandez jp3 Corrections: (The following items were deleted from the chart) 16:56 16:30 cloNIDine 0.2 mg PO ph ph
--- NOTE | 2018-08-20 20:02 | EDPHYS ---
Physician Documentation [facility] Name: Afua Cunningham Age: 57 yrs Sex: Female : 1960 Arrival Date: 08/20/2018 Time: 15:58 Bed 24 Private MD: ED Physician Sonny Murray HPI: 08/20 16:05 This 57 yrs old Black Female presents to ER via EMS with complaints of Anxiety. cp 16:05 The patient presents to the emergency department with anxiety, ran out of prescribed cp clonazepam. 16:05 Onset: The symptoms/episode began/occurred chronically. Past psychiatric history: Prior cp diagnosis: Anxiety, Psychiatric medications include: Effexor, clonazepam, trazodone. Associated signs and symptoms: Pertinent positives; hallucinations, headache, patient reports seeing oil exude from skin, Pertinent negatives: chest pain, homicidal ideation, paranoia, substance abuse, suicide ideation. Severity of symptoms: in the emergency department the symptoms are unchanged despite home interventions. Historical: - Allergies: 16:11 No Known Allergies; ph - Home Meds: 16:11 amlodipine 10 mg tab 1 tab once daily [Active]; carvedilol 6.25 mg Oral tab [Active]; ph losartan 100 mg Oral tab 1 tab once daily [Active]; pantoprazole 20 mg Oral chew [Active]; trazodone 100 mg Oral tab [Active]; venlafaxine Oral [Active]; - PMHx: 16:11 Anxiety; Asthma; Back pain; Depression; fx in middle of back; GERD; Hypertension; UTI; ph - Immunization history:: Adult Immunizations unknown. - Social history:: Smoking status: unknown. - Ebola Screening: : No symptoms or risks identified at this time. ROS: 16:10 Constitutional: Negative for body aches, chills, fever, poor PO intake. cp 16:10 Eyes: Negative for injury, pain, redness, and discharge. cp 16:10 ENT: Negative for drainage from ear(s), ear pain, sore throat, difficulty swallowing, difficulty handling secretions. 16:10 Cardiovascular: Negative for chest pain, edema, palpitations. 16:10 Respiratory: Negative for cough, shortness of breath, wheezing. 16:10 Abdomen/GI: Negative for abdominal pain, nausea, vomiting, and diarrhea, black/tarry stool, rectal bleeding. 16:10 Skin: Negative for cellulitis, rash. 16:10 Neuro: Positive for headache, Negative for altered mental status, syncope, near syncope, weakness. 16:10 Psych: Positive for anxiety, visual hallucinations, Negative for auditory hallucinations, homicidal ideation, suicide gesture, suicidal ideation. 16:10 All other systems are negative. Exam: 16:15 ECG was reviewed by the Attending Physician. cp 16:17 Constitutional: The patient appears in no acute distress, alert, awake, cp non-diaphoretic, non-toxic, well developed, well nourished. 16:17 Head/Face: Normocephalic, atraumatic. Eyes: Pupils equal round and reactive to light, cp extra-ocular motions intact. Lids and lashes normal. Conjunctiva and sclera are non-icteric and not injected. Cornea within normal limits. Periorbital areas with no swelling, redness, or edema. ENT: Nares patent. No nasal discharge, no septal abnormalities noted. Tympanic membranes are normal and external auditory canals are clear. Oropharynx with no redness, swelling, or masses, exudates, or evidence of obstruction, uvula midline. Mucous membranes moist. 16:17 Neck: External neck: is normal, ROM/movement: is normal, is supple, without pain, no range of motions limitations, no meningismus, no nuchal rigidity. 16:17 Chest/axilla: Inspection: normal, Palpation: is normal, no crepitus, no tenderness. 16:17 Cardiovascular: Rate: tachycardic, Rhythm: regular, Edema: is not appreciated, JVD: is not appreciated. 16:17 Respiratory: the patient does not display signs of respiratory distress, Respirations: normal, no use of accessory muscles, no retractions, no splinting, no tachypnea, labored breathing, is not present, Breath sounds: are clear throughout, no decreased breath sounds, no stridor, no wheezing. 16:17 Abdomen/GI: Inspection: abdomen appears normal, Bowel sounds: active, all quadrants, Palpation: abdomen is soft and non-tender, in all quadrants, rebound tenderness, is not appreciated, voluntary guarding, is not appreciated, involuntary guarding, is not appreciated. 16:17 Back: pain, is absent, ROM is normal. 16:17 Skin: cellulitis, is not appreciated, no rash present. 16:17 Neuro: Orientation: to person, place \T\ time. Mentation: lucid, able to follow commands, Cerebellar function: is grossly normal, Motor: moves all fours, strength is normal, Sensation: no obvious gross deficits. 16:17 Psych: Behavior/mood is cooperative, Affect is calm, Patient has no thoughts/intents to harm self or others. Vital Signs: 16:08 BP 233 / 110; Pulse 110; Resp 22; Temp 97.5; Pulse Ox 96% on R/A; Pain 0/10; ph 16:31 BP 165 / 105; Pulse 106; Resp 20; Pulse Ox 98% on R/A; ph 17:00 BP 179 / 85; Pulse 99; Resp 18; Pulse Ox 99% on R/A; ph 17:30 BP 218 / 99; Pulse 101; Resp 16; Pulse Ox 98% on R/A; ph 18:00 BP 203 / 105; Pulse 98; Resp 18; Pulse Ox 99% on R/A; ph 18:35 BP 178 / 99; Pulse 94; Resp 16; Pulse Ox 98% on R/A; ph 18:54 BP 184 / 93; Pulse 91; Resp 16; Pulse Ox 96% on R/A; ph 19:21 BP 196 / 104; Pulse 100; Resp 18; Pulse Ox 95% on R/A; mt 20:02 BP 160 / 80; Pulse 90; Resp 18; Pulse Ox 97% on R/A; Pain 0/10; aa1 MDM: 16:04 Patient medically screened. cp 17:00 Differential diagnosis: drug withdrawal. acute psychotic break, depression, psychosis cp secondary to non-compliance, hypertensive crisis, CVA, intracranial bleed. 20:00 Data reviewed: vital signs, nurses notes, lab test result(s), EKG, radiologic studies, cp CT scan. 20:00 Test interpretation: by ED physician or midlevel provider: ECG, plain radiologic cp studies. Counseling: I had a detailed discussion with the patient and/or guardian regarding: the historical points, exam findings, and any diagnostic results supporting the discharge/admit diagnosis, lab results, radiology results, the need for outpatient follow up, a family practitioner, to return to the emergency department if symptoms worsen or persist or if there are any questions or concerns that arise at home. Response to treatment: the patient's symptoms have markedly improved after treatment, VSS. Blood pressure markedly improved. Will discharge to home for continued monitoring. 08/20 16:02 Order name: Basic Metabolic Panel; Complete Time: 17:21 08/20 17:21 Interpretation: Normal except: K 2.8; GLUC 109; BUN 5. 08/20 16:02 Order name: CBC with Diff; Complete Time: 17:21 08/20 17:21 Interpretation: Reviewed. 08/20 16:02 Order name: LFT's; Complete Time: 17:21 08/20 17:22 Interpretation: Normal except: GLOB 4.1; A/G 0.9. 08/20 16:02 Order name: Magnesium; Complete Time: 17:21 08/20 16:02 Order name: PT-INR; Complete Time: 17:21 08/20 17:22 Interpretation: Normal except: PT 12.7. 08/20 16:02 Order name: UDS; Complete Time: 18:15 08/20 18:15 Interpretation: Normal except: OPI POSITIVE. 08/20 16:02 Order name: XRAY Chest (1 view); Complete Time: 17:21 08/20 17:22 Interpretation: Report review. 08/20 16:02 Order name: CT Head Brain wo Cont; Complete Time: 17:21 08/20 17:22 Interpretation: Report reviewed. 08/20 16:04 Order name: Troponin I; Complete Time: 17:21 08/20 17:55 Order name: Urine Dipstick--Ancillary (enter results); Complete Time: 18:15 08/20 18:16 Interpretation: Normal except: UBLD 1+; UPROT 1+. 08/20 17:55 Order name: Urine --Ancillary (enter results); Complete Time: 18:15 08/20 16:02 Order name: EKG; Complete Time: 16:07 08/20 16:02 Order name: Cardiac monitoring; Complete Time: 16:18 08/20 16:02 Order name: EKG - Nurse/Tech; Complete Time: 16:18 08/20 16:02 Order name: IV Saline Lock; Complete Time: 16:18 08/20 16:02 Order name: Labs collected and sent; Complete Time: 16:18 08/20 16:02 Order name: O2 Per Protocol; Complete Time: 16:18 cp 08/20 16:02 Order name: O2 Sat Monitoring; Complete Time: 16:18 cp 08/20 16:02 Order name: Urine Test (obtain specimen); Complete Time: 17:53 cp EC:15 Rate is 109 beats/min. Rhythm is regular. MT interval is normal. QRS interval is cp normal. QT interval is normal. Interpreted by me. Reviewed by me. Administered Medications: 16:30 Drug: NS 0.9% 1000 ml Route: IV; Rate: 1 bolus; Site: right antecubital; ph 18:15 Follow up: Response: No adverse reaction; IV Status: Completed infusion ph 16:30 Drug: cloNIDine 0.1 mg Route: PO; ph 17:30 Follow up: Response: No adverse reaction; Blood pressure is unchanged ph 16:56 Drug: Norvasc 10 mg Route: PO; ph 18:12 Follow up: Response: No adverse reaction; Blood pressure is unchanged ph 16:56 Drug: Aspirin Chewable Tablet 324 mg Route: PO; ph 18:12 Follow up: Response: No adverse reaction ph 17:43 Drug: Potassium Chloride 20 mEq Route: IV; Rate: calculated rate; Site: right ph antecubital; 19:45 Follow up: IV Status: Completed infusion aa1 17:44 Drug: Potassium Effervescent Tablet 50 mEq Route: PO; ph 18:12 Follow up: Response: No adverse reaction ph 17:44 Drug: NS 0.9% 1000 ml Route: IV; Rate: 1 bolus; Site: right antecubital; ph 19:45 Follow up: IV Status: Completed infusion aa1 18:11 Drug: cloNIDine 0.1 mg Route: PO; ph 18:14 Follow up: Response: No adverse reaction ph 18:12 Drug: Tylenol 1000 mg Route: PO; ph 19:13 Follow up: Response: No adverse reaction ph 18:12 Drug: Maalox Suspension (200 mg-200 mg-20 mg/5 mL) 30 ml Route: PO; ph 19:13 Follow up: Response: No adverse reaction ph 19:00 Drug: Potassium Effervescent Tablet 50 mEq Route: PO; ph 19:13 Follow up: Response: No adverse reaction ph 19:25 Drug: Ativan 1 mg Route: PO; aa1 20:10 Follow up: Response: No adverse reaction; Marked relief of symptoms aa1 Disposition: 08/21 07:35 Co-signature as Attending Physician, Sonny Murray MD. rn Disposition: 08/20/18 20:02 Discharged to Home. Impression: Hypertensive heart disease, Patient's other noncompliance with medication regimen. - Condition is Stable. - Discharge Instructions: Hypertension, How to Take Your Blood Pressure, [id number], Managing Your Hypertension. - Prescriptions for Ativan 1 mg Oral Tablet - take 1 tablet by ORAL route every 8-12 hours As needed; 20 tablet. - Medication Reconciliation Form, Thank You Letter, Antibiotic Education, Prescription Opioid Use form. - Follow up: Teto Atkinson MD; When: 1 - 2 days; Reason: Recheck today's complaints. - Problem is an ongoing problem. - Symptoms have improved. Signatures: Dispatcher [employer] EDMS Emi Epperson RN RN aa1 Sonny Murray MD MD rn Hall, Patricia, RN RN ph Page, Shayne, PA PA cp Corrections: (The following items were deleted from the chart) 08/20 20:02 20:02 08/20/2018 20:02 Discharged to Home. Impression: Hypertensive heart disease. cp Condition is Stable. Forms are Medication Reconciliation Form, Thank You Letter, Antibiotic Education, Prescription Opioid Use. Follow up: Teto Atkinson; When: 1 - 2 days; Reason: Recheck today's complaints. Problem is an ongoing problem. Symptoms have improved. cp 20:21 20:02 08/20/2018 20:02 Discharged to Home. Impression: Hypertensive heart disease; aa1 Patient's other noncompliance with medication regimen. Condition is Stable. Forms are Medication Reconciliation Form, Thank You Letter, Antibiotic Education, Prescription Opioid Use. Follow up: Teto Atkinson; When: 1 - 2 days; Reason: Recheck today's complaints. Problem is an ongoing problem. Symptoms have improved. cp
[2018-08-20 20:31] VITALS: TEMP 97.5
[2018-08-20 20:39] VITALS: BP 160/80; O2SAT 97
--- NOTE | 2018-08-20 22:27 | EKG ---
Test Date: 2018-08-20 Test Time: 16:10:46 Marine Erector: KATE MEASUREMENT RESULTS: Intervals: Rate: 109 [place]: 142 QRSD: 82 QT: 344 QTc: 463 [place]: P: 54 [place]: 142 QRS: -4 T: 24 INTERPRETIVE STATEMENTS: Sinus tachycardia Left ventricular hypertrophy with repolarization abnormality Cannot rule out Septal infarct, age undetermined Abnormal ECG Compared to ECG 08/17/2018 07:41:35 No significant changes Electronically Signed On 08-20-18 22:26:29 CDT by [place]
== END 2018-08-20 20:21 | disposition home or self-care (01) ==
LOC: ER 16:06
DX: I11.9 Hypertensive heart disease without heart failure (principal); Z91.14 Patient's other noncompliance with medication regimen; I10 Essential (primary) hypertension; F32.9 Major depressive disorder, single episode, unspecified
CPT/HCPCS: 36415; 70450; 71045; 80048; 80076; 80307 ×8; 81003; 81025; 83735; 84484; 85025; 85610; 93005; 96361; 96365; 96366; 99284; J7030 ×2

== ENCOUNTER 2019-06-16 11:26 | Emergency (ER) | payer OTHER ==
--- OUTSIDE RECORDS SUMMARY | 2019-06-16 11:29 | XMS REPORT ---
:1960 [facility] Address [address] [place] [address] Care Team Providers Name Role Phone Unavailable Unavailable Unavailable Problems This patient has no known problems. Allergies, Adverse Reactions, Alerts This patient has no known allergies or adverse reactions. Medications This patient has no known medications.
--- NOTE | 2019-06-16 11:48 | ER ---
Nurse's Notes [facility] Name: Afua Cunningham Age: 58 yrs Sex: Female : 1960 Arrival Date: 06/16/2019 Time: 11:29 Bed Waiting Private MD: Teto Atkinson E Diagnosis: Presentation: 06/16 11:34 Presenting complaint: Patient states: Patient has had increased depression after not aj taking her medications appropriately. Patient's daughter would like her transferred to a psychiatric facility, but patient denies suicidal or homicidal ideations. Transition of care: patient was not received from another setting of care. Onset of symptoms was June 16, 2019. Risk Assessment: Do you want to hurt yourself or someone else? Patient reports no desire to harm self or others. Initial Sepsis Screen: Does the patient meet any 2 criteria? No. Patient's initial sepsis screen is negative. Does the patient have a suspected source of infection? No. Patient's initial sepsis screen is negative. Care prior to arrival: None. 11:34 Method Of Arrival: Ambulatory aj 11:34 Acuity: ASHA 3 aj Triage Assessment: 11:37 General: Appears in no apparent distress. comfortable, Behavior is calm, cooperative, aj appropriate for age. Pain: Denies pain. Neuro: Level of Consciousness is awake, alert, obeys commands, Oriented to person, place, time, situation, Appropriate for age. Respiratory: Airway is patent Respiratory effort is even, unlabored, Respiratory pattern is regular, symmetrical. Derm: Skin is intact, is healthy with good turgor, Skin is pink, warm \\T\\ dry. normal. Historical: - Allergies: 11:37 No Known Allergies; aj - Home Meds: 11:37 carvedilol 6.25 mg Oral tab [Active]; losartan 100 mg Oral tab 1 tab once daily aj [Active]; pantoprazole 20 mg Oral chew [Active]; Clonazepam Oral [Active]; venlafaxine Oral [Active]; - PMHx: 11:37 Anxiety; Asthma; Back pain; Depression; fx in middle of back; GERD; Hypertension; UTI; aj - Immunization history:: Adult Immunizations up to date. - Social history:: Smoking status: Patient/guardian denies using tobacco. - Ebola Screening: : Patient negative for fever greater than or equal to 101.5 degrees Fahrenheit, and additional compatible Ebola Virus Disease symptoms Patient denies exposure to infectious person Patient denies travel to an Ebola-affected area in the 21 days before illness onset No symptoms or risks identified at this time. Assessment: 11:46 Reassessment: Patient stated to card processing clerk "We are going to go to her doctor on aj Friday. We will come back if it gets worse". Psych: 11:38 Subjective: Patient's mood is sad. Objective: Patient is cooperative, Speech is normal, aj Affect is appropriate. Vital Signs: 11:37 BP 167 / 97; Pulse 99; Resp 18; Temp 98.3; Pulse Ox 96% on R/A; Weight 68.04 kg; Height aj 5 ft. 1 in. (154.94 cm); 11:37 Body Mass Index 28.34 (68.04 kg, 154.94 cm) aj ED Course: 11:29 Patient arrived in ED. mr 11:30 Teto Atkinson MD is Private Physician. mr 11:35 Triage completed. aj 11:37 Arm band placed on right wrist. Patient placed in waiting room, Patient notified of wait time. 11:47 Sonny Murray MD is Attending Physician. aj Administered Medications: No medications were administered Outcome: 11:47 Eloped from waiting room, before seeing physician Time discovered patient gone: May at 11:47 11:47 Patient left the ED. aj Signatures: Neli Keita, RN RN rowena Hogan Diane mr
[2019-06-16 11:54] VITALS: BP 167/97; TEMP 98.3; O2SAT 96
== END 2019-06-16 11:47 | disposition left against medical advice (07) ==
LOC: ER 11:26
DX: F32.9 Major depressive disorder, single episode, unspecified (principal); Z53.21 Procedure and treatment not carried out due to patient leaving prior to being seen by health care provider
CPT/HCPCS: 99282

== ENCOUNTER 2020-09-01 18:15 | Emergency (ER) | payer OTHER ==
--- OUTSIDE RECORDS SUMMARY | 2020-09-01 18:16 | XMS REPORT | Continuity of Care Document ---
:1960 Author Organization [facility] t Address [address] [place] [address] Care Team Providers Name Role Phone Isaac WHITE Attending Clinician Ary RN, T Attending Clinician Unavailable Sindy Tavera Attending Clinician Doctor Unassigned, Name Attending Clinician Unavailable Desi NEWMAN, S Attending Clinician Essence PAC, S Attending Clinician Problems This patient has no known problems. Allergies, Adverse Reactions, Alerts This patient has no known allergies or adverse reactions. Medications This patient has no known medications. Procedures This patient has no known procedures. Encounters Start End Encounter Admission Attending Care Care Encounter Source Date/Time Date/Time Type Type Clinicians Facility Department ID 2020-07-18 2020-07-18 [id number] 11:27:00 12:25:00 Cristobal Karlee [id number] [place] 4.2.7.2.686 [place] [id number] 084 2020-07-14 2020-07-14 [facility] [id number] 10:35:00 11:01:00 Cristobal Desir [id number] [place] 4.2.7.2.686 [place] [id number] 2020-07-06 2020-07-06 Letter KARYN Mcallister [id number] 00:00:00 00:00:00 (Out) Johnna Tenorio BEATRIZ [id number]68[facility] [id number] 2020-07-03 2020-07-03 Emergency Janet Love [facility] [id number] 14:13:00 17:14:00 Sindy Desir [id number]2.686 [place] [id number] 084 2020-06-18 2020-06-18 Orders Doctor KARYN [id number] 00:00:00 00:00:00 Only Unassigned, BEATRIZ [id number] [place] [address]68[facility] [id number] 009 2020-06-11 2020-06-11 Emergency Cristobal Gray [facility] [id number] 07:22:31 07:47:00 Cristobal Gray [id number] [place] 4.2.7.2.686 [place] [id number] 2020-06-11 2020-06-11 Orders Doctor BOSS [id number] 00:00:00 00:00:00 Only UnassignedBEATRIZ 350.1.13.[address] [place] [address]68 [id number] 2020-06-03 2020-06-03 Emergency Desi [facility] [id number] 15:21:35 18:43:00 Kellie Desir 350.1.13.10 [place] 4.2.7.2.686 [place] [id number] 084 2020-06-03 2020-06-03 Orders Doctor BOSS [id number] 00:00:00 00:00:00 Only Unassigned, BEATRIZ [id number] [place] [facility] 4.2.7.2.686 [id number] 2020-05-31 2020-05-31 Telephone Essence [facility] [id number] 00:00:00 00:00:00 [facility] [id number] Surgical 4.2.7.2.686 [place] [id number] [address] 2020-05-18 2020-05-18 Office Essence [facility] [id number] 15:22:03 16:00:04 Visit [facility] [id number] Surgical 4.2.7.2.686 [place] [id number] [address] Results This patient has no known results.
--- OUTSIDE RECORDS SUMMARY | 2020-09-01 18:17 | XMS REPORT | Summary of Care ---
:1960 Author Organization [facility] Address [address] [place] [address] Care Team Providers Name Role Phone Flavio Primary Care Provider Reason for Visit Reason Comments Knee Pain Auth/Cert Status Reason Specialty Diagnoses / Referred By Referred To Procedures Contact Contact Emergency Medicine Adc Em ergency Dept [address] [facility] [place] [address] Fax: Encounter Details Date Type Department Care Team Description 06/11/2020 Emergency ADC-Emergency Cristobal Delvalle MD Other chronic pain Department [address] [place] [address] (Primary Dx) [address] [facility] [address] [place] [address] [place], [place] [id number] Allergies No Known Allergiesdocumented as of this encounter (statuses as of 06/11/2020) Medications Medication Sig Dispensed Refills Start Date End Date Status pantoprazole 40 mg EC Take 40 mg by 0 Active tablet mouth daily. budesonide/formoterol Inhale. 0 Active fumarate (SYMBICORT INHALE) Venlafaxine 225 mg TR24 Take 75 mg by 0 Active mouth every morning. carvedilol 12.5 mg Take 12.5 mg by 0 Active tablet mouth 2 (two) times daily with meals. temazepam 15 mg capsule Take 15 mg by 0 Active mouth at bedtime as needed for Insomnia. losartan 100 mg tablet Take 100 mg by 0 Active mouth daily. ibuprofen 600 mg Take 1 tablet by 30 tablet 0 04/09/2020 Active tabletIndications: Acute mouth every 6 pain of both knees, (six) hours as Lowry's cyst, needed for Pain unspecified laterality, (scale 4-6). Osteoarthritis of both knees, unspecified osteoarthritis type, Muscle spasm methocarbamol 750 mg Take 1 tablet by 20 tablet 0 04/09/2020 Active tabletIndications: Acute mouth 4 (four) pain of both knees, times daily as Lowry's cyst, needed for Pain unspecified laterality, (scale 4-6) or Osteoarthritis of both Pain (scale knees, unspecified 7-10). osteoarthritis type, Muscle spasm methylPREDNISolone 4 mg Take by mouth 21 Each 0 04/09/2020 Active tabletsIndications: SEE-INSTRUCTIONS Osteoarthritis of both . follow package knees, unspecified directions osteoarthritis type losartan 100 mg Take 1 tablet by 30 tablet 0 05/07/2020 Active tabletIndications: mouth daily. Chronic pain of left knee, Medication refill acetaminophen-codeine Take 1-2 tablets 10 tablet 0 05/07/2020 Active 300-30 mg by mouth every 6 tabletIndications: (six) hours as Chronic pain of left needed for Pain knee, Medication refill (scale 4-6). albuterol 90 Inhale 2 Puffs 8.5 g 0 05/13/2020 A ctive mcg/actuation every 4 (four) inhalerIndications: SOB hours as needed (shortness of breath), for Wheezing or Irritable airways Shortness of Breath. clonazePAM 2 mg tablet 0 03/28/2020 Active ARIPiprazole 2 mg tablet 0 05/05/2020 Active DICLOFENAC 75 mg EC TAKE 1 TABLET BY 60 tablet 1 05/22/2020 Active tabletIndications: MOUTH TWICE Chronic pain of both DAILY WITH MEALS knees albuterol 90 Inhale 2 Puffs 8.5 g 0 06/03/2020 A ctive mcg/actuation every 4 (four) inhalerIndications: hours as needed Uncomplicated asthma, for Wheezing or unspecified asthma Shortness of severity, unspecified Breath. whether persistent, Pain of left lower extremity, Chronic pain of left knee, Medication refill acetaminophen-codeine Take 1-2 tablets 20 tablet 0 06/11/2020 Active 300-30 mg by mouth every 6 tabletIndications: (six) hours as chronic pain needed for Pain (scale 4-6). Indications: chronic pain documented as of this encounter (statuses as of 06/11/2020) Active Problems Problem Noted Date Altered mental status 07/17/2019 Obesity (BMI 30-39.9) 05/31/2019 Hypertensive urgency 05/31/2019 documented as of this encounter (statuses as of 06/11/2020) Social History Tobacco Use Types Packs/Day Years Used Date Current Every Day Smoker 1 5 Smokeless Tobacco: Never Used Alcohol Use Drinks/Week oz/Week Comments Yes Alcohol Habits Answer Date Recorded How often do you have a drink containing 4 or more times a w [place] 07/17/2019 alcohol? How many drinks containing alcohol do you have 5 or 6 07/17/2019 on a typical day when you are drinking? How often do you have six or more drinks on one Not asked occasion? Education Answer Date Recorded What is the highest level of school you have completed or th e 7th grade 05/31/2019 highest degree you have received? Financial Resource Strain Answer Date Recorded How hard is it for you to pay for the very basics like food, Very hard 05/31/2019 housing, medical care, and heating? Transportation Needs Answer Date Recorded In the past 12 months, has lack of transportation kept you f rom Yes 05/31/2019 medical appointments or from getting medications? In the past 12 months, has lack of transportation kept you f rom Yes 05/31/2019 meetings, work, or getting things needed for daily living? Sex Assigned at Date Recorded Not on file Job Start Date Occupation Industry Not on file Not on file Not on file Travel History Travel Start Travel End No recent travel history available. COVID-19 Exposure Response Date Recorded In the last month, have you been in contact with No / Unsure 06/11/2020 7:11 AM CDT someone who was confirmed or suspected to have Coronavirus / COVID-19? documented as of this encounter Last Filed Vital Signs Vital Sign Reading Time Taken Comments Blood Pressure 156/89 06/11/2020 7:21 AM CDT Pulse 96 06/11/2020 7:21 AM CDT Temperature 36.6 C (97.8 F) 06/11/2020 7:21 AM CDT Respiratory Rate 17 06/11/2020 7:21 AM CDT Oxygen Saturation 98% 06/11/2020 7:21 AM CDT Inhaled Oxygen Concentration - - Weight 81.6 kg (180 lb) 06/11/2020 7:21 AM CDT Height 154.9 cm (5' 1") 06/11/2020 7:21 AM CDT Body Mass Index 34.01 06/11/2020 7:21 AM CDT documented in this encounter Discharge Instructions InstructionsNeCristobal jacome MD - 06/11/2020 RETURN FOR ANY QUESTIONS OR CONCERNS Today you were seen by Cristobal Delvalle Jr., MD You were seen today for Chief Complaint Patient presents with Knee Pain Your ER diagnosis was ICD-10-CM ICD-9-CM 1. Other chronic pain G89.29 338.29 NO LIFE-THREATENING FINDINGS ON TODAY'S EXAM. YOUR PRESCRIPTIONS : Check out [facility] for medication discounts Medication List ASK your doctor about these medications acetaminophen-codeine 300-30 mg tablet Commonly known as: TYLENOL #3 Take 1-2 tablets by mouth every 6 (six) hours as needed for Pain (scale 4-6). * albuterol 90 mcg/actuation inhaler Commonly known as: VENTOLIN Inhale 2 Puffs every 4 (four) hours as needed for Wheezing or Shortness of Breath. * albuterol 90 mcg/actuation inhaler Commonly known as: VENTOLIN Inhale 2 Puffs every 4 (four) hours as needed for Wheezing or Shortness of Breath. ARIPiprazole 2 mg tablet Commonly known as: ABILIFY carvediloL 12.5 mg tablet Commonly known as: COREG clonazePAM 2 mg tablet Commonly known as: KLONOPIN diclofenac 75 mg EC tablet Commonly known as: VOLTAREN TAKE 1 TABLET BY MOUTH TWICE DAILY WITH MEALS ibuprofen 600 mg tablet Commonly known as: IBU Take 1 tablet by mouth every 6 (six) hours as needed for Pain (scale 4-6). * losartan 100 mg tablet Commonly known as: COZAAR * losartan 100 mg tablet Commonly known as: COZAAR Take 1 tablet by mouth daily. methocarbamol 750 mg tablet Commonly known as: ROBAXIN Take 1 tablet by mouth 4 (four) times daily as needed for Pain (scale 4-6) or Pain (scale 7-10). methylPREDNISolone 4 mg tablets Commonly known as: MEDROL DOSE-SAM Take by mouth SEE-INSTRUCTIONS. follow package directions pantoprazole 40 mg EC tablet Commonly known as: PROTONIX SYMBICORT INHALE temazepam 15 mg capsule Commonly known as: RESTORIL Venlafaxine 225 mg Tr24 * This list has 4 medication(s) that are the same as other medications prescribed for you. Read thedirections carefully, and ask your doctor or other care provider to review them with you. ER precautions and follow up : 1. Return to ER if your symptoms should worsen or fail to improve within 72 hours. 2. The care provided in the emergency room was for acute problems only. 3. You should follow up with your primary care provider within 72 hours. 4. Fill and take all your medications as prescribed. 5. Make sure you are staying adequately hydrated. Busque attencion immediatamente si usted tiene los sitomas sigue, vuelve peor o si hay sitomas nuevas o para cualquiera preoccupacion incluyendo dolor del pecho, falta aire, se siente debile, mas fievre, mas dolor, nausea, vomitando, sangrando que no es normal, confusion, baja or pierdas conciencia. MAY FOLLOW-UP WITH A PROVIDER OF YOUR CHOICE, SUCH : 1. A PHYSICIAN OF YOUR CHOICE 2. [facility], . LOCATIONS IN [facility] 3. [facility], [address] [place] [address]; [phone] OR, IF YOU WISH TO FOLLOW-UP WITHIN THE [facility], MAY TRY THESE OPTIONS (CLINIC APPOINTMENTS AVAILABLE ON [id number] BASIS): 1. SCHEDULE AN APPOINTMENT ONLINE AT WWW[facility] 2. OR CALL THE [facility] ACCESS CENTER AT OR 3. OR CALL YOUR [facility] PHYSICIAN'S OFFICE DIRECTLY IF YOU ARE ALREADY AN ESTABLISHED [facility] PATIENT. [facility] RETURN TO WORK / SCHOOL EXCUSE Afua Cunningham WAS SEEN IN THE ER AND DISCHARGED 06/11/2020 TODAY, 7:33 AM & May return to Work / School / Incarceration on X with activity as tolerated indicated below. ___The following limitations apply until pt is seen by Physician and cleared to return to normal activity. _X_ Off for two days and return to activity as tolerated at work or school ___ No Sports ___ No work ___ Do not return until fever free for 24 hours. ___ No school CRISTOBAL DELVALLE Jr., MD [facility] EMERGENCY DEPRTMENT [address] [place] [address] [place] [address] ### The patient may have been given Narcotic pain medications during their stay in the ED that may show up on a Drug Screen. The hospital discharge paper work will identify these medications. AttachmentsThe following attachments cannot be sent through Care Everywhere. Chronic Pain (Serbian)documented in this encounter Plan of Treatment Health Maintenance Due Date Last Done Comments HEPATITIS C (HCV) SCREEN 1960 PNEUMOCOCCAL 0-64 YEARS COMBINED SERIES (1 of - 1967 PPSV23) DTaP,Tdap,and Td Vaccines (1 - Tdap) 1972 Depression Screening 1973 PAP SMEAR 1982 Breast Cancer Screening (MAMMOGRAM) 2001 COLONOSCOPY 2011 Zoster Recombinant Vaccine (SHINGRIX) (1 of 2) 2011 LUNG CANCER SCREEN: Recommended for age 55-80 with 30 + 12/21/19 17 pack year history INFLUENZA VACCINE (#1) 2020 documented as of this encounter Results Not on filedocumented in this encounter Visit Diagnoses Diagnosis Other chronic pain - Primary documented in this encounter Insurance Payer Benefit Plan / Subscriber ID Effective Phone Address T ype Group Dates [employer] [id number] 2020-Pres Med icare Adv HEALTHCARE - MEDICARE ent HMO MANAGED ADVANTAGE MEDICARE QUOC KUMARI xxxxxxxxx 2016-Pres [address] id HEALTHCARE - HEALTHCARE [place] [id number] MANAGED MEDICAID [place], [place]ICA[place] 2009 [place] (Home) [facility] [address] [facility] [id number] documented as of this encounter Advance Directives Name Relationship Healthcare Agent Communication Relationship Martha John Child Primary healthcare agent Anjel (Mobile)
--- OUTSIDE RECORDS SUMMARY | 2020-09-01 18:17 | XMS REPORT | Summary of Care ---
:1960 Author Organization [facility] - Health Address [address] [place] [address] Care Team Providers Name Role Phone Gary Atkinson Primary Care Provider Reason for Visit Reason Comments Other medication refil Auth/Cert Status Reason Specialty Diagnoses / Referred By Referred To Procedures Contact Contact Emergency Medicine Adc Em ergency Dept [address] [place] [address] Fax: Encounter Details Date Type Department Care Team Description 06/03/2020 Emergency ADC-Emergency Kellie Weeks, PATY Uncomplicated asthma, unspecified asthma severity, unspecified whether persistent (Primary Dx); Department [address] [place] [address] DR Pain of left lower extremity; [address] [place] [address] 7 [address]34 Chronic pain of left knee; Drive [phone] Medication refill [place] [id number] [phone] Allergies No Known Allergiesdocumented as of this encounter (statuses as of 06/03/2020) Medications Medication Sig Dispensed Refills Start End Date Status Date pantoprazole 40 mg EC Take 40 mg by 0 Active tablet mouth daily. budesonide/formoterol Inhale. 0 Active fumarate (SYMBICORT INHALE) Venlafaxine 225 mg TR24 Take 75 mg by 0 Active mouth every morning. carvedilol 12.5 mg Take 12.5 mg 0 Active tablet by mouth 2 (two) times daily with meals. temazepam 15 mg capsule Take 15 mg by 0 Active mouth at bedtime as needed for Insomnia. losartan 100 mg tablet Take 100 mg by 0 Active mouth daily. ibuprofen 600 mg Take 1 tablet 30 tablet 0 Active tabletIndications: by mouth every 0 Acute pain of both 6 (six) hours knees, Lowry's cyst, as needed for unspecified laterality, Pain (scale Osteoarthritis of both 4-6). knees, unspecified osteoarthritis type, Muscle spasm methocarbamol 750 mg Take 1 tablet 20 tablet 0 Active tabletIndications: by mouth 4 0 Acute pain of both (four) times knees, Lowry's cyst, daily as unspecified laterality, needed for Osteoarthritis of both Pain (scale knees, unspecified 4-6) or Pain osteoarthritis type, (scale 7-10). Muscle spasm methylPREDNISolone 4 mg Take by mouth 21 Each 0 Active tabletsIndications: SEE-INSTRUCTIO 0 Osteoarthritis of both NS. follow knees, unspecified package osteoarthritis type directions losartan 100 mg Take 1 tablet 30 tablet 0 Active tabletIndications: by mouth 0 Chronic pain of left daily. knee, Medication refill acetaminophen-codeine Take 1-2 10 tablet 0 Active 300-30 mg tablets by 0 tabletIndications: mouth every 6 Chronic pain of left (six) hours as knee, Medication refill needed for Pain (scale 4-6). albuterol 90 Inhale 2 Puffs 8.5 g 0 Ac tive mcg/actuation every 4 (four) 0 inhalerIndications: SOB hours as (shortness of breath), needed for Irritable airways Wheezing or Shortness of Breath. clonazePAM 2 mg tablet 0 Active 0 ARIPiprazole 2 mg 0 Ac tive tablet 0 DICLOFENAC 75 mg EC TAKE 1 TABLET 60 tablet 1 Active tabletIndications: BY MOUTH TWICE 0 Chronic pain of both DAILY WITH knees MEALS albuterol 90 Inhale 2 Puffs 8.5 g 0 Ac tive mcg/actuation every 4 (four) 0 inhalerIndications: hours as Uncomplicated asthma, needed for unspecified asthma Wheezing or severity, unspecified Shortness of whether persistent, Breath. Pain of left lower extremity, Chronic pain of left knee, Medication refill albuterol 90 Inhale 2 Puffs 8.5 g 0 06/03/20 Di scontinued mcg/actuation every 4 (four) 0 20 inhalerIndications: hours as Uncomplicated asthma, needed for unspecified asthma Wheezing or severity, unspecified Shortness of whether persistent, Breath. Medication refill documented as of this encounter (statuses as of 06/03/2020) Active Problems Problem Noted Date Altered mental status 07/17/2019 Obesity (BMI 30-39.9) 05/31/2019 Hypertensive urgency 05/31/2019 documented as of this encounter (statuses as of 06/03/2020) Social History Tobacco Use Types Packs/Day Years Used Date Current Every Day Smoker 1 5 Smokeless Tobacco: Never Used Alcohol Use Drinks/Week oz/Week Comments Yes Alcohol Habits Answer Date Recorded How often do you have a drink containing 4 or more times a w [place] 07/17/2019 alcohol? How many drinks containing alcohol [...] been in contact with No / Unsure 06/03/2020 3:21 PM CDT someone who was confirmed or suspected to have Coronavirus / COVID-19? documented as of this encounter Last Filed Vital Signs Vital Sign Reading Time Taken Comments Blood Pressure 164/94 06/03/2020 3:20 PM CDT Pulse 97 06/03/2020 3:20 PM CDT Temperature 37.2 C (99 F) 06/03/2020 3:20 PM CDT Respiratory Rate 15 06/03/2020 3:20 PM CDT Oxygen Saturation 98% 06/03/2020 3:20 PM CDT Inhaled Oxygen Concentration - - Weight 81.6 kg (180 lb) 06/03/2020 3:20 PM CDT Height 154.9 cm (5' 1") 06/03/2020 3:20 PM CDT Body Mass Index 34.01 06/03/2020 3:20 PM CDT documented in this encounter Discharge Instructions Kellie Goode, PAC - 06/03/2020DIAGNOSIS 1. Asthma 2. Leg pain NO LIFE-THREATENING FINDINGS ON TODAY'S EXAM. PROCEDURES IN THE ER TODAY: none MEDICATIONS ADMINISTERED IN THE ER TODAY: none YOUR PRESCRIPTIONS AND [id number] MEDICATION RECOMMENDATIONS: Albuterol inhaler SPECIAL CARE INSTRUCTIONS: Take your inhaler as prescribed up to 4 times a day for wheezing. If you start having worse shortness of breath or wheezing that is not improving with the inhaler or develop fever with your asthma, return to the ER. Take the medication Dr. Murillo's office gave you for your knee pain. If it is not working, contacthis office to find out if they can change the prescription. FOLLOW-UP RECOMMENDATIONS: RECOMMEND FOLLOW-UP WITH A PRIMARY CARE PROVIDER OR SPECIALIST IN 2-5 DAYS, ESPECIALLY IF NO IMPROVEMENT IN SYMPTOMS. TO FOLLOW-UP WITHIN THE [facility], TRY THESE OPTIONS (CLINIC APPOINTMENTS AVAILABLE ON [id number] BASIS): 1. SCHEDULE AN APPOINTMENT ONLINE AT WWW[facility] 2. OR CALL THE [facility] ACCESS CENTER AT OR 3. OR CALL YOUR [facility] PHYSICIAN'S OFFICE DIRECTLY IF YOU ARE ALREADY AN ESTABLISHED [facility] PATIENT. OR, YOU MAY FOLLOW-UP WITH A PROVIDER OF YOUR CHOICE, SUCH : 1. A PHYSICIAN OF YOUR CHOICE 2. [facility] AND [facility], . LOCATIONS IN [facility] ER 3. [facility], [address] [place] [address]; [phone] RETURN TO ER FOR WORSENING OF SYMPTOMS. AttachmentsThe following attachments cannot be sent through Care Everywhere. Asthma (Togolese)documented in this encounter Plan of Treatment Health Maintenance Due Date Last Done Comments HEPATITIS C (HCV) SCREEN 1960 PNEUMOCOCCAL 0-64 YEARS COMBINED SERIES (1 of 1 - 1967 PPSV23) DTaP,Tdap,and Td Vaccines (1 - Tdap) 1972 Depression Screening 1973 PAP SMEAR 1982 Breast Cancer Screening (MAMMOGRAM) 2001 COLONOSCOPY 2011 Zoster Recombinant Vaccine (SHINGRIX) (1 of 2) 2011 LUNG CANCER SCREEN: Recommended for age 55-80 with 30 + 12/21/19 17 pack year history INFLUENZA VACCINE (#1) 2020 documented as of this encounter Procedures Procedure Name Priority Date/Time Associated Diagnosis Comme nts NOTICE OF PRIVACY Routine 06/03/2020 3:07 PM CDT PRACTICES documented in this encounter Results Not on filedocumented in this encounter Visit Diagnoses Diagnosis Uncomplicated asthma, unspecified asthma severity, unspecified whether persistent - Primary Pain of left lower extremity Chronic pain of left knee Pain in joint, lower leg Medication refill Issue of repeat prescriptions documented in this encounter Insurance Payer Benefit Plan / Subscriber ID Effective Phone Address T ype Group Dates [facility] [id number] 2020-Yoseph Jimenez HEALTHCARE - MEDICARE HMO MANAGED MEDICARE ADVANTAGE documented as of this encounter Advance Directives Name Relationship Healthcare Agent Communication Relationship Martha John Child Primary healthcare agent Anjel (Mobile)
--- OUTSIDE RECORDS SUMMARY | 2020-09-01 18:17 | XMS REPORT | Summary of Care ---
:1960 Author Organization [facility] - Health Address [address] [place] [address] Care Team Providers Name Role Phone Gary Atkinson Primary Care Provider Encounter Details Date Type Department Care Team Description 06/11/2020 Orders Only [facility] Doctor Unassigned, No [address] [facility] [place] [address] [address] [place] [address] Allergies No Known Allergiesdocumented as of this [...] Chronic pain of left knee, Medication refill documented as of this encounter [...] containing 4 or more times a w [place] 07/17/2019 alcohol? How many drinks containing alcohol [...] of this encounter Last Filed Vital Signs Not on filedocumented in this encounter Plan of Treatment Health [...] Name Priority Date/Time Associated Diagnosis Comme nts CONSENT/REFUSAL FOR Routine 06/11/2020 7:10 AM CDT DIAGNOSIS AND TREATMENT documented in this encounter Results Not on filedocumented in this encounter Insurance Payer Benefit Plan / Subscriber ID Effective Phone Address T e Group Dates [facility] [id number] 2020-Pres Med icare Adv HEALTHCARE - MEDICARE ent HMO MANAGED ADVANTAGE MEDICARE QUOC KUMARI xxxxxxxxx 2016-Pres [address] Medica id HEALTHCARE - HEALTHCARE [place] [id number] MANAGED MEDICAID [place] documented as of this encounter Advance Directives Name Relationship Healthcare Agent Communication Relationship Martha Forestbillie Child Primary healthcare agent Anjel (Mobile)
--- OUTSIDE RECORDS SUMMARY | 2020-09-01 18:18 | XMS REPORT | Summary of Care ---
:1960 Author Organization [facility] - [facility] Address [address] [place] [address] Care Team Providers Name Role Phone Flavio Primary Care Provider Encounter Details Date Type Department Care Team Description 06/18/2020 Orders Only [facility] Doctor Unassigned, No [address] [facility] [place] [address] [address] [place] [address] Allergies No Known Allergiesdocumented as of this encounter (statuses as of 06/20/2020) Medications Medication Sig Dispensed Refills Start Date [...] as of this encounter (statuses as of 06/20/2020) Active Problems Problem Noted Date Altered mental status 07/17/2019 Obesity (BMI 30-39.9) 05/31/2019 Hypertensive urgency 05/31/2019 documented as of this encounter (statuses as of 06/20/2020) Social History Tobacco Use Types Packs/Day Years Used Date Current Every Day Smoker 1 5 Smokeless Tobacco: Never Used Alcohol Use Drinks/Week oz/Week Comments Yes Alcohol Habits Answer Date Recorded How often do you have a drink containing 4 or more times a w [place] 07/17/2019 alcohol? How many drinks containing alcohol [...] Name Priority Date/Time Associated Diagnosis Comme nts MEDICATION CORRESPONDENCE Routine 06/18/2020 12:01 AM CDT documented in this encounter Results Not on filedocumented in this encounter Insurance Payer Benefit Plan / Subscriber ID Effective Phone Address T ype Group Dates [facility] [id number] 2020-Pres Med icare Adv HEALTHCARE - MEDICARE ent O MANAGED ADVANTAGE MEDICARE QUOC KUMARI xxxxxxxxx 2016-Pres [address] [facility] id HEALTHCARE - [place]CARE [place] [id number] MANAGED MEDICAID [place], [place] documented as of this encounter Advance Directives Name Relationship Healthcare Agent Communication Relationship Marthainés John Child Primary healthcare agent [phone] Anjel (Mobile)
--- OUTSIDE RECORDS SUMMARY | 2020-09-01 18:18 | XMS REPORT | Summary of Care ---
:1960 Author Organization [facility] [employer] [facility] Address [address] [place] [id number] Care Team Providers Name Role Phone Flavio Primary Care Provider Encounter Details Date Type Department Care Team Description 07/06/2020 Letter (Out) [facility] Johnna Mcallister, [place] [address] [phone] [place] [id number] Allergies No Known Allergiesdocumented as of this encounter (statuses as of 07/06/2020) Medications Medication Sig Dispensed Refills Start Date [...] for Pain (scale 4-6). Indications: chronic pain albuterol 90 Inhale 2 Puffs 8.5 g 0 07/03/2020 A ctive mcg/actuation every 4 (four) inhalerIndications: SOB hours as needed (shortness of breath), for Wheezing or Intermittent asthma, Shortness of unspecified asthma Breath. severity, unspecified whether complicated naproxen (NAPROSYN) 500 Take 1 tablet by 30 tablet 0 0 Active mg tabletIndications: mouth 2 (two) Strain of lumbar region, times daily with initial encounter meals. cyclobenzaprine 5 mg Take 1 tablet by 20 tablet 0 07/03/2020 Active tabletIndications: mouth 3 (three) Strain of lumbar region, times daily as initial encounter needed for Muscle Spasms. documented as of this encounter (statuses as of 07/06/2020) Active Problems Problem Noted Date Altered mental status 07/17/2019 Obesity (BMI 30-39.9) 05/31/2019 Hypertensive urgency 05/31/2019 documented as of this encounter (statuses as of 07/06/2020) Social History Tobacco Use Types Packs/Day Years Used Date Current Every Day Smoker 1 5 Smokeless Tobacco: Never Used Alcohol Use Drinks/Week oz/Week Comments Yes Alcohol Habits Answer Date Recorded How often do you have a drink containing 4 or more times a w [place] 07/17/2019 alcohol? How many drinks containing alcohol [...] Assigned at Date Recorded Not on file COVID-19 Exposure Response Date Recorded In the last month, have you been in contact with No / Unsure 07/03/2020 2:00 PM CDT someone who was confirmed or suspected to have Coronavirus / COVID-19? documented as of this encounter Last Filed Vital Signs Not on filedocumented in this encounter Plan of Treatment Health Maintenance Due Date Last Done Comments HEPATITIS C (HCV) SCREEN 1960 PNEUMOCOCCAL 0-64 YEARS COMBINED SERIES (1 of 1 - 1967 PPSV23) Depression Screening 1973 DTaP,Tdap,and Td Vaccines (1 - Tdap) 1980 PAP SMEAR 1982 Breast Cancer Screening (MAMMOGRAM) 2001 COLON CANCER SCREENING ANNUAL FIT/FOBT 2011 COLON CANCER SCREENING FIT DNA EVERY 3 YEARS 2011 COLON CANCER SCREENING SIGMOIDOSCOPY EVERY 5 YEARS 2011 COLONOSCOPY 2011 Colorectal Cancer Screening 2011 Zoster Recombinant Vaccine (SHINGRIX) (1 of 2) 2011 LUNG CANCER SCREEN: Recommended for age 55-80 with 30 + 12/21/19 17 pack year history INFLUENZA VACCINE (#1) 2020 documented as of this encounter Results Not on filedocumented in this encounter Insurance Payer Benefit Plan / Subscriber ID Effective Phone Address T [facility] Group Dates [facility] [id number] 2020-Pres Med icare Adv HEALTHCARE - MEDICARE ent HMO MANAGED ADVANTAGE MEDICARE KUMARI KUMARI [id number] 2016-Pres [address] [facility] id HEALTHCARE - [place]CARE [place] [id number] [place]NA[place]ED MED[place]ID [place] documented as of this encounter Advance Directives Name Relationship Healthcare Agent Communication Relationship Martha John Child Health Care Agent [phone] Anjel (Mobile)
--- OUTSIDE RECORDS SUMMARY | 2020-09-01 18:18 | XMS REPORT | Summary of Care ---
:1960 Author Organization [facility] Address [address] [place] [id number] Care Team Providers Name Role Phone Flavio Primary Care Provider Reason for Visit Reason Comments Cough Asthma Back Pain Auth/Cert Status Reason Specialty Diagnoses / Referred By Referred To Procedures Contact Contact Emergency Medicine Diagnoses ASTHMA/BACK PAIN [facility] Emergency Dept [address] [place] [address] Fax: Encounter Details Date Type Department Care Team Description 07/03/2020 Emergency ADC-Emergency Janet Love, Reshmae nt asthma, unspecified asthma severity, unspecified whether complicated (Primary Dx); Department PAC SOB (shortness of breath); [address] [place] [address] [address] [facility] of lumbar region, [place] [address] [facility] [address] [place] [address] Allergies No Known Allergiesdocumented as of this encounter (statuses as of 07/03/2020) Medications Medication Sig Dispensed Refills Start Date [...] as of this encounter (statuses as of 07/03/2020) Active Problems Problem Noted Date Altered mental status 07/17/2019 Obesity (BMI 30-39.9) 05/31/2019 Hypertensive urgency 05/31/2019 documented as of this encounter (statuses as of 07/03/2020) Social History Tobacco Use Types Packs/Day Years Used Date Current Every Day Smoker 1 5 Smokeless Tobacco: Never Used Alcohol Use Drinks/Week oz/Week Comments Yes Alcohol Habits Answer Date Recorded How often do you have a drink containing 4 or more times a w [place] 07/17/2019 alcohol? How many drinks containing alcohol [...] Sign Reading Time Taken Comments Blood Pressure 184/96 07/03/2020 4:23 PM CDT Pulse 91 07/03/2020 4:23 PM CDT Temperature 37.4 C (99.4 F) 07/03/2020 2:12 PM CDT Respiratory Rate 19 07/03/2020 4:23 PM CDT Oxygen Saturation 98% 07/03/2020 4:23 PM CDT Inhaled Oxygen Concentration - - Weight 72.6 kg (160 lb) 07/03/2020 2:12 PM CDT Height - - Body Mass Index 30.23 06/11/2020 7:21 AM CDT documented in this encounter Discharge Instructions AttachmentsThe following attachments cannot be sent through Care Everywhere. Lumbosacral Strain, Understanding (Thai)Inhaler, Using (Thai)Asthma Triggers, Understanding (Thai)documented in this encounter ED Notes Honey Tierney RN - 07/03/2020 2:11 PM CDTPt reports that she has had increased cough, and "asthma flare for the last 3 days with back pain."Pt is out of albuterol. Pt is in no apparent distress. Pt is not dyspneic on exertion. Walking test reveals SPO2 remains 96% documented in this encounter Miscellaneous Notes ED Nurse Note - Shaunna Plunkett RN - 07/03/2020 5:12 PM CDTPt given printed and verbal discharge instructions regarding cough, self-quarantine, encouraged hydration. Prescriptions provided. Discussed naproxen and to take with food to avoid GI distress. Discussed Tylenol # 3 side affects and to avoid driving/operating machinery/or engaging in activities requiring alertness while taking. Pt verbalized understanding of instructions, pt awake alert oriented, resp reg unlabored, skin w/d, color appropriate for race, moves all ext well,pt encouraged to follow up with pcp . Advised to seek medical attention for new/prolonged/worsening of symptoms. No adverse reaction to meds given in ER noted upon discharge. Awake, alert oriented, resp reg unlabored, skin w/d, pt leaving amb with steady gait, in no apparent distress. documented in this encounter Plan of Treatment Name Type Priority Associated Diagnoses Date/Ti me CORONAVIRUS COVID-19 LAB STAT SOB (shortness of 4:11 PM TESTING breath) CDT Name Type Priority Associated Diagnoses Order S chedule CORONAVIRUS COVID-19 LAB Routine SOB (shortness of ON CE for 1 Occurrences TESTING breath) starting 2019 until 0 Health Maintenance Due Date Last Done Comments [...] Associated Diagnosis Comme nts CONSENT/REFUSAL FOR Routine 07/03/2020 2:00 PM CDT DIAGNOSIS AND TREATMENT documented in this encounter Results Not on filedocumented in this encounter Visit Diagnoses Diagnosis Intermittent asthma, unspecified asthma severity, unspecified whether complicated - Primary SOB (shortness of breath) Shortness of breath Strain of lumbar region, initial encount er documented in this encounter Administered Medications Medication Order MAR Action Action Date Dose Rate Site acetaminophen-codeine (TYLENOL Given 07/03/2020 4:21 PM CDT 1 t ablet #3) 300-30 mg tablet 1 tablet 1 tablet, Oral, ONCE, 1 dose, 07/03/20 at 1715, QAMAR naproxen (ANAPROX) tablet 275 mg Given 07/03/2020 5:15 PM CDT 275 mg 275 mg, Oral, ONCE NOW, 1 dose, Fri07/03/20 at 1715, Routine documented in this encounter Additional Health Concerns Infection Onset Date Last Indicated Resolved Time COVID-19 Rule Out 07/03/2020 07/03/2020 documented as of this encounter Insurance Payer Benefit Plan / Subscriber ID Effective Phone Address T ype Group Dates [facility] [id number] 2020-Pres Med icare Adv HEALTHCARE - MEDICARE ent HMO MANAGED ADVANTAGE MEDICARE KUMARI KUMARI [id number] 2016-Pres [address] Med[address] id HEALTHCARE - [place]CARE [place] [id number] MANAGED MED[place]ID [place], [place] documented as of this encounter Advance Directives Name Relationship Healthcare Agent Communication Relationship Martha John Child Health Care Agent [phone] Anjel (Mobile)
--- OUTSIDE RECORDS SUMMARY | 2020-09-01 18:19 | XMS REPORT | Summary of Care ---
:1960 Author Organization [facility] Address [address] [place] [id number] Care Team Providers Name Role Phone Flavio Primary Care Provider Reason for Visit Reason Comments Pain neck Encounter Details Date Type Department Care Team Description 07/14/2020 Emergency ADC-Emergency Cristobal Delvalle MD Cervical radiculopathy Department [address] [place] [address] (Primary Dx) 132 [facility] [address] [place] [address] [place], [place] [id number] Allergies No Known Allergiesdocumented as of this encounter (statuses as of 07/14/2020) Medications Medication Sig Dispensed Refills Start Date [...] as of this encounter (statuses as of 07/14/2020) Active Problems Problem Noted Date Altered mental status 07/17/2019 Obesity (BMI 30-39.9) 05/31/2019 Hypertensive urgency 05/31/2019 documented as of this encounter (statuses as of 07/14/2020) Social History Tobacco Use Types Packs/Day Years Used Date Current Every Day Smoker 1 5 Smokeless Tobacco: Never Used Alcohol Use Drinks/Week oz/Week Comments Yes Alcohol Habits Answer Date Recorded How often do you have a drink containing 4 or more times a w [place] 07/17/2019 alcohol? How many drinks containing alcohol [...] Sign Reading Time Taken Comments Blood Pressure 180/92 07/14/2020 10:32 AM CDT Pulse 93 07/14/2020 10:32 AM CDT Temperature 36.8 C (98.2 F) 07/14/2020 10:32 AM CDT Respiratory Rate 18 07/14/2020 10:32 AM CDT Oxygen Saturation - - Inhaled Oxygen Concentration - - Weight 81.6 kg (180 lb) 07/14/2020 10:32 AM CDT Height - - Body Mass Index 34.01 06/11/2020 7:21 AM CDT documented in this encounter Discharge Instructions InstructionsCristobal Delvalle MD - 07/14/2020 RETURN FOR ANY QUESTIONS OR CONCERNS Today you were seen by Cristobal Delvalle Jr., MD You were seen today for Chief Complaint Patient presents with Pain neck Your ER diagnosis was ICD-10-CM ICD-9-CM 1. Cervical radiculopathy M54.12 723.4 NO LIFE-THREATENING FINDINGS ON TODAY'S EXAM. YOUR PRESCRIPTIONS : Check out [employer] for medication discounts Medication List ASK your doctor about these medications * acetaminophen-codeine 300-30 mg tablet Commonly known as: TYLENOL #3 Take 1-2 tablets by mouth every 6 (six) hours as needed for Pain (scale 4-6). * acetaminophen-codeine 300-30 mg tablet Commonly known as: TYLENOL #3 Take 1-2 tablets by mouth every 6 (six) hours as needed for Pain (scale 4-6). Indications: chronic pain * albuterol 90 mcg/actuation inhaler Commonly known [...] 2 mg tablet Commonly known as: KLONOPIN cyclobenzaprine 5 mg tablet Commonly known as: FLEXERIL Take 1 tablet by mouth 3 (three) times daily as needed for Muscle Spasms. diclofenac 75 mg EC tablet Commonly known [...] COZAAR Take 1 tablet by mouth daily. methocarbamoL 750 mg tablet Commonly known as: ROBAXIN Take 1 tablet by mouth 4 (four) times daily as needed for Pain (scale 4-6) or Pain (scale 7-10). methylPREDNISolone 4 mg tablets Commonly known as: MEDROL DOSE-SAM Take by mouth SEE-INSTRUCTIONS. follow package directions naproxen 500 mg tablet Commonly known as: Naprosyn Take 1 tablet by mouth 2 (two) times daily with meals. pantoprazole 40 mg EC tablet Commonly known as: PROTONIX SYMBICORT INHALE temazepam 15 mg capsule Commonly known as: RESTORIL Venlafaxine 225 mg Tr24 * This list has 7 medication(s) that are the same as other [...] 1. A PHYSICIAN OF YOUR CHOICE 2. [facility], . LOCATIONS IN [facility] 3. [facility], [address], [place]; [phone] OR, IF YOU WISH TO FOLLOW-UP WITHIN THE [facility], MAY TRY THESE OPTIONS (CLINIC APPOINTMENTS AVAILABLE ON [id number] BASIS): 1. SCHEDULE AN APPOINTMENT ONLINE AT WWW.[facility] 2. OR CALL THE [facility] ACCESS CENTER AT OR 3. OR CALL YOUR [facility] PHYSICIAN'S OFFICE DIRECTLY IF YOU ARE ALREADY AN ESTABLISHED [facility] PATIENT. [facility] RETURN TO WORK / SCHOOL EXCUSE Afua Cunningham WAS SEEN IN THE ER AND DISCHARGED 07/14/2020 TODAY, 10:43 AM & May return to Work / [...] ___ No school CRISTOBAL DELVALLE Jr., MD [facility] [address] [place] [address] [place] [address] ### The patient may have been given Narcotic pain medications during their stay in the ED that may show up on a Drug Screen. The hospital discharge paper work will identify these medications. AttachmentsThe following attachments cannot be sent through Care Everywhere. Cervical Radiculopathy, Understanding (Latvian)documented in this encounter ED Notes Teto Owens RN - 07/14/2020 10:32 AM CDTC/O constant neck pain that shoot down to right arm x 3 weeks. Has been taking Ibuprofen and MuscleRelaxers for pain. Cristobal Ko MD - 07/14/2020 10:26 AM CDT EMERGENCY DEPARTMENT ENCOUNTER [facility] Patient Name: Afua Cunningham Date of : 1960 59 year old Exam Room:[address] Primary Care Physician: Ekaterina Muniz Pre- Hospital Patient Escorted by: Self [9] Mode of Arrival: Personal means [1] EMS Treatment Prior to ED Arrival: Chief Complaint Chief Complaint Patient presents with Pain neck HPI History provided by: Patient Neck Pain Pain location: L side Quality: Cramping and aching Pain severity: Moderate Onset quality: Gradual Duration: 3 days Relieved by: rest. Worsened by: Twisting (movement) Associated symptoms: no chest pain, no fever and no headaches Past Medical History / Immunizations Past Medical History: Diagnosis Date Anxiety Lowry's cyst Depression HTN (hypertension) MS (multiple sclerosis) Past Surgical History No past surgical history on file. Allergies No Known Allergies Social History Tobacco Use Current Every Day Smoker; Smoked an average of 1 pack/day for 5 years. Smokeless Tobacco: Never used smokeless tobacco. Alcohol Use Yes. Frequency of alcohol consumption: 4 or more times a week Number of drinks when drinkin or 6 Drug Use Not Currently. Review of Systems Review of Systems Constitutional: Negative. Negative for chills, fatigue, fever and unexpected weight change. HENT: Negative. Eyes: Negative. Negative for discharge and itching. Respiratory: Negative. Negative for cough, chest tightness, shortness of breath and wheezing. Cardiovascular: Negative. Negative for chest pain and palpitations. Gastrointestinal: Negative. Negative for abdominal distention, abdominal pain, nausea and vomiting. Genitourinary: Negative. Negative for dysuria, urgency, frequency and flank pain. Musculoskeletal: Positive for neck pain. Skin: Negative. Negative for color change, pallor and wound. Neurological: Negative. Negative for dizziness, syncope, light-headedness and headaches. Psychiatric/Behavioral: Negative. Negative for agitation and behavioral problems. All other systems reviewed and are negative. Endocrine: Endocrine negative Physical Exam BP (!) 180/92 | Pulse 93 | Temp 36.8 C (98.2 F) (Oral) | Resp 18 | Wt 81.6 kg (180 lb) | BMI 34.01 kg/m Physical Exam Vitals signs reviewed. Constitutional: Appearance: She is well-developed. HENT: Head: Normocephalic and atraumatic. Eyes: Conjunctiva/sclera: Conjunctivae normal. Neck: Musculoskeletal: Muscular tenderness present. No neck rigidity, crepitus or spinous process tenderness. Cardiovascular: Rate and Rhythm: Normal rate and regular rhythm. Heart sounds: Normal heart sounds. Pulmonary: Effort: Pulmonary effort is normal. No respiratory distress. Breath sounds: Normal breath sounds. No stridor. No wheezing or rales. Abdominal: General: Bowel sounds are normal. There is no distension. Palpations: Abdomen is soft. Tenderness: There is no abdominal tenderness. There is no guarding or rebound. Musculoskeletal: Normal range of motion. Skin: General: Skin is warm and dry. Neurological: Mental Status: She is alert and oriented to person, place, and time. Cranial Nerves: No cranial nerve deficit. Sensory: No sensory deficit. Psychiatric: Behavior: Behavior normal. Thought Content: Thought content normal. Judgment: Judgment normal. Labs No results found for this or any previous visit (from the past 24 hour(s)). Imaging No results found for this visit on 07/14/20. Orders and Treatments No orders of the defined types were placed in this encounter. No orders of the defined types were placed in this encounter. Procedures See ED Procedure Note Notes & MDM Patient was evaluated for an emergency medical condition related to Pain (neck) . Differential diagnoses considered by presenting complaints but not limited to: Cervical Radiculopathy Assessment: Patient as chronic pain and a cervical radiculopathy per history. Exhibiting drug seeking behavior. Will DC. History, physical exam findings, results of visit, differential diagnosis, medication regimens and plan of future care have been considered. Additional MDM may be found in the ED course. Differential diagnosis considered and final disposition made based on information gathered during evaluation and may not be completely ruled out or specifically listed. Vital signs were rechecked before final disposition. Diagnosis ICD-10-CM ICD-9-CM 1. Cervical radiculopathy M54.12 723.4 Disposition & Follow Up ED Disposition ED Disposition Condition Comment Disch - Home Stable Current Discharge Medication List CONTINUE these medications which have NOT CHANGED Details !! albuterol 90 mcg/actuation inhaler Inhale 2 Puffs every 4 (four) hours as needed for Wheezing or Shortness of Breath. Qty: 8.5 g, Refills: 0 Associated Diagnoses: SOB (shortness of breath); Intermittent asthma, unspecified asthma severity, unspecified whether complicated cyclobenzaprine 5 mg tablet Take 1 tablet by mouth 3 (three) times daily as needed for Muscle Spasms. Qty: 20 tablet, Refills: 0 Associated Diagnoses: Strain of lumbar region, initial encounter naproxen (NAPROSYN) 500 mg tablet Take 1 tablet by mouth 2 (two) times daily with meals. Qty: 30 tablet, Refills: 0 Associated Diagnoses: Strain of lumbar region, initial encounter !! acetaminophen-codeine 300-30 mg tablet Take 1-2 tablets by mouth every 6 (six) hours as needed for Pain (scale 4-6). Indications: chronic pain Qty: 20 tablet, Refills: 0 Associated Diagnoses: Other chronic pain !! albuterol 90 mcg/actuation inhaler Inhale 2 Puffs every 4 (four) hours as needed for Wheezing or Shortness of Breath. Qty: 8.5 g, Refills: 0 Associated Diagnoses: Uncomplicated asthma, unspecified asthma severity, unspecified whether persistent; Pain of left lower extremity; Chronic pain of left knee; Medication refill DICLOFENAC 75 mg EC tablet TAKE 1 TABLET BY MOUTH TWICE DAILY WITH MEALS Qty: 60 tablet, Refills: 1 Comments: Patient requests 90 days supply Associated Diagnoses: Chronic pain of both knees ARIPiprazole 2 mg tablet clonazePAM 2 mg tablet !! albuterol 90 mcg/actuation inhaler Inhale 2 Puffs every 4 (four) hours as needed for Wheezing or Shortness of Breath. Qty: 8.5 g, Refills: 0 Associated Diagnoses: SOB (shortness of breath); Irritable airways !! acetaminophen-codeine 300-30 mg tablet Take 1-2 tablets by mouth every 6 (six) hours as needed for Pain (scale 4-6). Qty: 10 tablet, Refills: 0 Associated Diagnoses: Chronic pain of left knee; Medication refill !! losartan 100 mg tablet Take 1 tablet by mouth daily. Qty: 30 tablet, Refills: 0 Associated Diagnoses: Chronic pain of left knee; Medication refill ibuprofen 600 mg tablet Take 1 tablet by mouth every 6 (six) hours as needed for Pain (scale 4-6). Qty: 30 tablet, Refills: 0 Associated Diagnoses: Acute pain of both knees; Lowry's cyst, unspecified laterality; Osteoarthritis of both knees, unspecified osteoarthritis type; Muscle spasm methocarbamol 750 mg tablet Take 1 tablet by mouth 4 (four) times daily as needed for Pain (scale 4-6) or Pain (scale 7-10). Qty: 20 tablet, Refills: 0 Associated Diagnoses: Acute pain of both knees; Lowry's cyst, unspecified laterality; Osteoarthritis of both knees, unspecified osteoarthritis type; Muscle spasm methylPREDNISolone 4 mg tablets Take by mouth SEE-INSTRUCTIONS. follow package directions Qty: 21 Each, Refills: 0 Associated Diagnoses: Osteoarthritis of both knees, unspecified osteoarthritis type carvedilol 12.5 mg tablet Take 12.5 mg by mouth 2 (two) times daily with meals. !! losartan 100 mg tablet Take 100 mg by mouth daily. temazepam 15 mg capsule Take 15 mg by mouth at bedtime as needed for Insomnia. Venlafaxine 225 mg TR24 Take 75 mg by mouth every morning. budesonide/formoterol fumarate (SYMBICORT INHALE) Inhale. pantoprazole 40 mg EC tablet Take 40 mg by mouth daily. !! - Potential duplicate medications found. Please discuss with provider. Cristobal Delvalle Jr., MD Clinical [place] [facility] Emergency Department documented in this encounter Miscellaneous Notes ED Nurse Note - Teto Owens, RN - 07/14/2020 11:00 AM CDTVerbalized understanding of discharge instructions. No signs of distress observed. RR even and unlabored. Encouraged to return to ER if symptoms worsen. documented in this encounter Plan of Treatment Health [...] Diagnosis Comme nts NOTICE OF PRIVACY Routine 07/14/2020 10:27 AM CDT PRACTICES CONSENT/REFUSAL FOR Routine 07/14/2020 10:26 AM CDT DIAGNOSIS AND TREATMENT documented in this encounter Results Not on filedocumented in this encounter Visit Diagnoses Diagnosis Cervical radiculopathy - Primary Brachial neuritis or radiculitis nos documented in this encounter Insurance Payer Benefit Plan / Subscriber ID Effective Phone Address T ype Group Dates [facility] [id number] 2020-Pres Med icare Adv HEALTHCARE - MEDICARE ent HMO MANAGED ADVANTAGE MEDICARE [place] LAMBERTINA [id number] 2016-Pres [address] id HEALTHCARE - HEALTHCARE [place] [id number] MANAGED MEDICAID [place], [place] documented as of this encounter Advance Directives Name Relationship Healthcare Agent Communication Relationship Martha John Child Health Care Agent [phone] Anjel (Mobile) "
--- OUTSIDE RECORDS SUMMARY | 2020-09-01 18:19 | XMS REPORT | Summary of Care ---
:1960 Author Organization [facility] - [facility] Address [address] [place] [address] Care Team Providers Name Role Phone Flavio Primary Care Provider Reason for Visit Reason Comments Shoulder Pain left Auth/Cert Status Reason Specialty Diagnoses / Referred By Referred To Procedures Contact Contact Emergency Medicine Ad[facility] Em ergency Dept [address] [facility] [place] [address] Fax: Encounter Details Date Type Department Care Team Description 07/18/2020 Emergency ADC-Emergency Cristobal Delvalle MD Acute pain of left Department [address] [facility] shoulder (Primary Dx) [address] [facility] [address] [place] [address] [place], [place] [id number] Allergies No Known Allergiesdocumented as of this encounter (statuses as of 07/18/2020) Medications Medication Sig Dispensed Refills Start Date [...] as of this encounter (statuses as of 07/18/2020) Active Problems Problem Noted Date Altered mental status 07/17/2019 Obesity (BMI 30-39.9) 05/31/2019 Hypertensive urgency 05/31/2019 documented as of this encounter (statuses as of 07/18/2020) Social History Tobacco Use Types Packs/Day Years Used Date Current Every Day Smoker 1 5 Smokeless Tobacco: Never Used Alcohol Use Drinks/Week oz/Week Comments Yes Alcohol Habits Answer Date Recorded How often do you have a drink containing 4 or more times a w tribal 07/17/2019 alcohol? How many drinks containing alcohol [...] been in contact with No / Unsure 07/18/2020 11:24 AM CDT someone who was confirmed or suspected to have Coronavirus / COVID-19? documented as of this encounter Last Filed Vital Signs Vital Sign Reading Time Taken Comments Blood Pressure 174/96 07/18/2020 11:26 AM CDT Pulse 96 07/18/2020 11:26 AM CDT Temperature 36.6 C (97.9 F) 07/18/2020 11:26 AM CDT Respiratory Rate 18 07/18/2020 11:26 AM CDT Oxygen Saturation 99% 07/18/2020 11:26 AM CDT Inhaled Oxygen Concentration - - Weight 81.6 kg (180 lb) 07/18/2020 11:26 AM CDT Height - - Body Mass Index 34.01 06/11/2020 7:21 AM CDT documented in this encounter Discharge Instructions InstructionsCristobal Delvalle MD - 07/18/2020 RETURN FOR ANY QUESTIONS OR CONCERNS Today you were seen by Cristobal Delvalle Jr., MD You were seen today for Chief Complaint Patient presents with Shoulder Pain left Your ER diagnosis was ICD-10-CM ICD-9-CM 1. Acute pain of left shoulder M25.512 719.41 NO LIFE-THREATENING FINDINGS ON TODAY'S EXAM. YOUR PRESCRIPTIONS : Check out [employer] for medication discounts Medication List ASK your [...] 1. A PHYSICIAN OF YOUR CHOICE 2. [facility], . LOCATIONS IN [facility]ENC[facility] RO[facility] 3. [facility], [address], [place]; [phone] OR, IF YOU WISH TO FOLLOW-UP WITHIN THE [facility], MAY TRY THESE OPTIONS (CLINIC APPOINTMENTS AVAILABLE ON [id number] BASIS): 1. SCHEDULE AN APPOINTMENT ONLINE AT [facility] 2. OR CALL THE [facility] ACCESS CENTER AT OR 3. OR CALL YOUR [facility] PHYSICIAN'S OFFICE DIRECTLY IF YOU ARE ALREADY AN ESTABLISHED [facility] PATIENT. [facility] RETURN TO WORK / SCHOOL EXCUSE Afua Cunningham WAS SEEN IN THE ER AND DISCHARGED 07/18/2020 TODAY, 12:03 PM & May return to Work / School [...] ___ No school CRISTOBAL DELVALLE Jr., MD [facility] [address] [place] [address] [place] [address] ### The patient may have been given Narcotic pain medications during their stay in the ED that may show up on a Drug Screen. The hospital discharge paper work will identify these medications. AttachmentsThe following attachments cannot be sent through Care Everywhere. Shoulder Pain, Uncertain Cause (Latvian)Chronic Pain (Latvian)documented in this encounter ED Notes Katherine Langley RN - 07/18/2020 11:24 AM CDTPatithang has chronic pain but states her left shoulder is worsening. States she was seen for same problem one week ago but "wasn't given any pain medication". States she hasn't been to her pain management doctor in awhile. Cristobal Ko MD - 07/18/2020 11:12 AM CDT EMERGENCY DEPARTMENT ENCOUNTER [facility] Patient Name: Afua Cunningham Date of : 1960 59 year old Exam Room:[facility] Primary Care Physician: Ekaterina Muniz Pre- Hospital Patient Escorted by: Self [9] Mode of Arrival: Personal means [1] EMS Treatment Prior to ED Arrival: Chief Complaint Chief Complaint Patient presents with Shoulder Pain left HPI History provided by: Patient Upper Extremity Issue Location: Shoulder Shoulder location: L shoulder Injury: no Pain details: Quality: Aching and cramping Severity: Moderate Onset quality: chronic. Timing: Constant Dislocation: no Relieved by: Nothing Worsened by: Nothing Associated symptoms: stiffness Associated symptoms: no fatigue, no fever and no numbness Past Medical History / Immunizations Past Medical History: Diagnosis Date Anxiety Lowry's cyst Depression HTN (hypertension) MS (multiple sclerosis) Tetanus received in last 5 years: No Childhood immunizations: Up-to-date Past Surgical History No past surgical history [...] frequency and flank pain. Musculoskeletal: Positive for arthralgias and stiffness. Skin: Negative. Negative for color change, pallor and wound. Neurological: Negative. Negative for dizziness, syncope, light-headedness and headaches. Psychiatric/Behavioral: Negative. Negative for agitation and behavioral problems. All other systems reviewed and are negative. Endocrine: Endocrine negative Physical Exam BP (!) 174/96 | Pulse 96 | Temp 36.6 C (97.9 F) (Oral) | Resp 18 | Wt 81.6 kg (180 lb) | SpO2 99% | BMI 34.01 kg/m Physical Exam Vitals signs reviewed. Constitutional: Appearance: She is well-developed. HENT: Head: Normocephalic and atraumatic. Eyes: Conjunctiva/sclera: Conjunctivae normal. Neck: Musculoskeletal: Neck supple. Cardiovascular: Rate and Rhythm: Normal rate and [...] No results found for this visit on 07/18/20. Orders and Treatments No orders of the defined types were placed in this encounter. Orders Placed This Encounter Medications ketorolac (TORADOL) injection 30 mg Procedures See ED Procedure Note Notes & MDM Patient was evaluated for an emergency medical condition related to Shoulder Pain (left) . Differential diagnoses considered by presenting complaints but not limited to: Chronic pain Assessment: Pt has chronic pain and does not follow up with PCP. Frequent visits for pain meds. Will DC to follow up. History, physical exam findings, results of visit, differential diagnosis, medication regimens and plan of future care have been considered. Additional MDM may be found in the ED course. Differential diagnosis considered and final disposition made based on information gathered during evaluation and may not be completely ruled out or specifically listed. Vital signs were rechecked before final disposition. Diagnosis ICD-10-CM ICD-9-CM 1. Acute pain of left shoulder M25.512 719.41 Disposition & Follow Up ED Disposition ED Disposition Condition Comment Disch - Home Stable Patient's Medications START taking these medications No medications on file CONTINUE taking these medications which have NOT CHANGED ACETAMINOPHEN-CODEINE 300-30 MG TABLET Take 1-2 tablets by mouth every 6 (six) hours as needed for Pain (scale 4-6). ACETAMINOPHEN-CODEINE 300-30 MG TABLET Take 1-2 tablets by mouth every 6 (six) hours as needed for Pain (scale 4-6). Indications: chronic pain ALBUTEROL 90 MCG/ACTUATION INHALER Inhale 2 Puffs every 4 (four) hours as needed for Wheezing orShortness of Breath. ALBUTEROL 90 MCG/ACTUATION INHALER Inhale 2 Puffs every 4 (four) hours as needed for Wheezing orShortness of Breath. ALBUTEROL 90 MCG/ACTUATION INHALER Inhale 2 Puffs every 4 (four) hours as needed for Wheezing orShortness of Breath. ARIPIPRAZOLE 2 MG TABLET BUDESONIDE/FORMOTEROL FUMARATE (SYMBICORT INHALE) Inhale. CARVEDILOL 12.5 MG TABLET Take 12.5 mg by mouth 2 (two) times daily with meals. CLONAZEPAM 2 MG TABLET CYCLOBENZAPRINE 5 MG TABLET Take 1 tablet by mouth 3 (three) times daily as needed for Muscle Spasms. DICLOFENAC 75 MG EC TABLET TAKE 1 TABLET BY MOUTH TWICE DAILY WITH MEALS IBUPROFEN 600 MG TABLET Take 1 tablet by mouth every 6 (six) hours as needed for Pain (scale 4-6). LOSARTAN 100 MG TABLET Take 100 mg by mouth daily. LOSARTAN 100 MG TABLET Take 1 tablet by mouth daily. METHOCARBAMOL 750 MG TABLET Take 1 tablet by mouth 4 (four) times daily as needed for Pain (scale 4-6) or Pain (scale 7-10). METHYLPREDNISOLONE 4 MG TABLETS Take by mouth SEE-INSTRUCTIONS. follow package directions NAPROXEN (NAPROSYN) 500 MG TABLET Take 1 tablet by mouth 2 (two) times daily with meals. PANTOPRAZOLE 40 MG EC TABLET Take 40 mg by mouth daily. TEMAZEPAM 15 MG CAPSULE Take 15 mg by mouth at bedtime as needed for Insomnia. VENLAFAXINE 225 MG TR24 Take 75 mg by mouth every morning. START taking Modified Medications as Prescribed No medications on file STOP taking these medications No medications on file Cristobal Delvalle Jr., MD Clinical Spiral Tube Winder [facility] Emergency Department documented in this encounter Plan of Treatment [...] Diagnosis Comme nts NOTICE OF PRIVACY Routine 07/18/2020 11:14 AM CDT PRACTICES CONSENT/REFUSAL FOR Routine 07/18/2020 11:13 AM CDT DIAGNOSIS AND TREATMENT documented in this encounter Results Not on filedocumented in this encounter Visit Diagnoses Diagnosis Acute pain of left shoulder - Primary documented in this encounter Administered Medications Medication Order MAR Action Action Date Dose Rate Site ketorolac (TORADOL) Given 07/18/2020 12:12 PM 30 mg Left Deltoid-IM injection 30 mg CDT 30 mg, Intramuscular, ONCE, 1 dose, 07/18/20 at 1200, QAMAR, sound ranging crewmember approving Restricted medication: CRISTOBAL DELVALLE documented in this encounter Insurance Payer Benefit Plan / Subscriber ID Effective Phone Address T ype Group Dates [facility] [place] [id number] 2020-Pres Med icare Adv HEALTHCARE - MEDICARE ent HMO MANAGED ADVANTAGE MEDICARE KUMARI KUMARI [id number] 2016-Pres [address] Med[address] id HEALTHCARE - HEALTHCARE [place] [id number] MANAGED MEDICAID [place], [place] documented as of this encounter Advance Directives Name Relationship Healthcare Agent Communication Relationship Martha John Child Health Care Agent [phone] Anjel (Mobile)
[2020-09-01] MEDS ORDERED: METOCLOPRAMIDE 10 MG/2mL INJ ONE (19:49)
[2020-09-01] MEDS ORDERED: NA CHLORIDE 0.9% 1,000 ML ONE (19:50)
[2020-09-01] MEDS ORDERED: DIPHENHYDRAMINE 50 MG/ML VIAL ONE (19:50)
[2020-09-01 20:07] LABS: Absolute Lymphocytes (CBC) 2.3 K/uL (0.7-4.9); Basophils % 0.2 % (0-1.3); Hematocrit 38.3 % (36.0-45.0); MPV 7.4 fL (7.6-11.3); RBC Red Blood Cell Count 4.13 M/uL (3.86-4.86)
--- NOTE | 2020-09-01 20:09 | RAD REPORT ---
EXAM DESCRIPTION: CT - Head Brain Wo Cont - 09/01/2020 8:04 pm CLINICAL HISTORY: HEADACHE COMPARISON: Head Brain Wo Cont dated 08/20/2018 TECHNIQUE: Axial 5 mm thick images of the head were obtained without IV contrast. All CT scans are performed using dose optimization technique as appropriate and may include automated exposure control or mA/KV adjustment according to patient size. FINDINGS: No intracranial hemorrhage, mass, edema or shift of mid-line structures. No acute infarcti on changes seen. No abnormal extra-axial fluid collections. Ventricles are normal. Mastoid air cells are clear. Partially visualized right maxillary sinus shows an air-fluid level pres ent. No acute bony findings. IMPRESSION: No intracranial abnormality identifiable. Air-fluid level in the right maxillary sinus most likely acute sinusitis.
[2020-09-01 20:14] LABS: Protime INR 1.03
[2020-09-01 20:14] LABS: Barbiturates NEGATIVE (NEGATIVE); Benzodiazepines NEGATIVE (NEGATIVE); Cocaine NEGATIVE (NEGATIVE); METHAMPHETAM NEGATIVE (NEGATIVE); Methadone NEGATIVE (NEGATIVE); Opiates NEGATIVE (NEGATIVE); Phencyclidine NEGATIVE (NEGATIVE); THC Cannibis NEGATIVE (NEGATIVE)
[2020-09-01 20:25] LABS: ALT/SGPT 23 U/L (12-78); AST/SGOT 11 U/L (15-37); Albumin 3.3 g/dL (3.4-5.0); Alkaline Phosphatase 65 U/L (45-117); BUN Blood Urea Nitrogen 12 mg/dL (7-18); Bicarbonate 31 mmol/L (21-32); Bilirubin Direct < 0.1 mg/dL (0-0.2); Bilirubin Total 0.3 mg/dL (0.2-1.0); Glucose Level 75 mg/dL (74-106); Potassium 3.7 mmol/L (3.5-5.1); Protein, Total 7.1 g/dL (6.4-8.2); Sodium Level 142 mmol/L (136-145)
[2020-09-01 20:27] LABS: Urine Blood TRACE (NEG); Urine Glucose NEGATIVE (NEG); Urine Protein NEGATIVE (NEG); Urine Specific Gravity 1.015 (1.005-1.030)
--- NOTE | 2020-09-01 21:44 | ER ---
Nurse's Notes [facility] Name: Afua Cunningham Age: 59 yrs Sex: Female : 1960 Arrival Date: 09/01/2020 Time: 18:26 Bed 16 Private MD: Diagnosis: Headache;UTI Presentation: 09/01 18:33 Chief complaint: Patient states: ASHRAF for 4 days. Denies N/V, no fever. Coronavirus ll1 screen: Client denies travel out of the [place] in the last 14 days. At this time, the client does not indicate any symptoms associated with coronavirus-19. Ebola Screen: Patient denies travel to an Ebola-affected area in the 21 days before illness onset. Initial Sepsis Screen: Does the patient meet any 2 criteria? HR > 90 bpm. Does the patient have a suspected source of infection? Yes: Other: ASHRAF. Risk Assessment: Do you want to hurt yourself or someone else? Patient reports no desire to harm self or others. Onset of symptoms was August 28, 2020. 18:33 Method Of Arrival: Ambulatory ll1 18:33 Acuity: ASHA 3 ll1 Historical: - Allergies: 18:35 No Known Allergies; ll1 - PMHx: 18:35 Anxiety; Asthma; Back pain; Depression; fx in middle of back; GERD; Hypertension; UTI; ll1 - Immunization history:: Flu vaccine is not up to date. - Social history:: Smoking status: Patient reports the use of cigarette tobacco products, smokes one pack cigarettes per day. Screenin:11 Abuse screen: Denies threats or abuse. Denies injuries from another. Nutritional ca1 screening: No deficits noted. Tuberculosis screening: No symptoms or risk factors identified. Fall Risk IV access (20 points). Assessment: 19:11 General: Appears in no apparent distress. comfortable, Behavior is calm, cooperative, ca1 appropriate for age. Pain: Complains of pain in forehead, left base of the skull and right base of the skull Pain began 3-4 days. Neuro: Level of Consciousness is awake, alert, obeys commands, Oriented to person, place, time, situation, Reports dizziness, Denies blurred vision photophobia. Cardiovascular: Heart tones S1 S2 present Capillary refill < 3 seconds Patient's skin is warm and dry. Respiratory: Airway is patent Respiratory effort is even, unlabored, Respiratory pattern is regular, symmetrical, Breath sounds are clear bilaterally. GI: Abdomen is flat, non-distended, Bowel sounds present X 4 quads. Abd is soft and non tender X 4 quads. : No signs and/or symptoms were reported regarding the genitourinary system. EENT: No signs and/or symptoms were reported regarding the EENT system. Derm: Skin is intact, is healthy with good turgor, Skin is dry, Skin is pale, Skin temperature is warm. Musculoskeletal: Circulation, motion, and sensation intact. Capillary refill < 3 seconds. 20:02 Reassessment: Pt at Radiology at this time. ca1 20:20 Reassessment: Patient appears in no apparent distress at this time. Patient and/or ca1 family updated on plan of care and expected duration. Pain level reassessed. Patient is alert, oriented x 3, equal unlabored respirations, skin warm/dry/pink. 21:02 Reassessment: Patient appears in no apparent distress at this time. Patient and/or ca1 family updated on plan of care and expected duration. Pain level reassessed. Patient is alert, oriented x 3, equal unlabored respirations, skin warm/dry/pink. Vital Signs: 18:33 BP 162 / 91; Pulse 92; Resp 17; Temp 97.9; Pulse Ox 97% ; Weight 81.65 kg; Height 5 ft. ll1 5 in. (165.10 cm); Pain 10/10; 19:38 BP 159 / 90; Pulse 91; Resp 16 S; Pulse Ox 97% on R/A; ca1 20:40 BP 140 / 78; Pulse 81; Resp 17 S; Pulse Ox 97% on R/A; ca1 21:43 BP 118 / 95; Pulse 88; Resp 15 S; Pulse Ox 98% on R/A; ca1 21:55 BP 140 / 80; Pulse 81; Resp 15 S; Pulse Ox 98% on R/A; ca1 18:33 Body Mass Index 29.95 (81.65 kg, 165.10 cm) ll1 Farrah Coma Score: 21:40 Eye Response: spontaneous(4). Verbal Response: oriented(5). Motor Response: obeys mh7 commands(6). Total: 15. ED Course: 18:26 Patient arrived in ED. mr 18:34 Triage completed. ll1 18:35 Arm band placed on. ll1 19:06 Angelica Arellano, RN is Primary Nurse. ca1 19:06 Jewel Rudolph MD is Attending Physician. [facility] 19:11 Patient has correct armband on for positive identification. Placed in gown. Bed in low ca1 position. Call light in reach. Side rails up X2. Pulse ox on. NIBP on. Warm blanket given. 19:45 Missed attempt(s): 22 gauge in left antecubital area. Bleeding controlled, band aid ca1 applied, catheter tip intact. 19:50 Initial lab(s) drawn, by ny, sent to lab. Urine collected: clean catch specimen, clear. ca1 Inserted saline lock: 20 gauge in right antecubital area, using aseptic technique. Blood collected. 19:59 No provider procedures requiring assistance completed. ca1 20:04 CT Head Brain wo Cont In Process Unspecified. EDWI 21:42 Payton Roberts MD is Referral Physician. [facility] 21:42 Mark Parker MD is Referral Physician. [facility] 21:54 IV discontinued, intact, bleeding controlled, No redness/swelling at site. Pressure ca1 dressing applied. Administered Medications: 19:51 Drug: NS 0.9% 1000 ml Route: IV; Rate: 1000 ml; Site: right antecubital; ca1 21:05 Follow up: Response: No adverse reaction; IV Status: Completed infusion; IV Intake: ca1 1000ml 19:53 Drug: Benadryl 50 mg Route: IVP; Site: right antecubital; ca1 21:06 Follow up: Response: No adverse reaction; Pain is decreased ca1 19:55 Drug: Reglan 10 mg Route: IVP; Site: right antecubital; ca1 21:06 Follow up: Response: No adverse reaction; Nausea is decreased ca1 Intake: 21:05 IV: 1000ml; Total: 1000ml. ca1 Outcome: 21:43 Discharge ordered by . [facility] 21:54 Discharged to home ambulatory. ca1 21:54 Condition: stable 21:54 Discharge instructions given to patient, Instructed on discharge instructions, follow up and referral plans. medication usage, Demonstrated understanding of instructions, follow-up care, medications, Prescriptions given X 2. 21:55 Patient left the ED. ca1 Signatures: [facility] EdisonDiane mr Angelica Arellano RN RN ca1 Bert Franklin RN RN ll1 Jewel Rudolph MD MD [id number]
--- NOTE | 2020-09-01 21:44 | EDPHYS ---
Physician Documentation [facility] Name: Afua Cunningham Age: 59 yrs Sex: Female : 1960 Arrival Date: 09/01/2020 Time: 18:26 Bed 16 Private MD: ED Physician Jewel Rudolph HPI: 09/01 19:35 This 59 yrs old Black Female presents to ER via Ambulatory with complaints of Headache. mh7 19:35 The patient complains of pain to the forehead. The patient describes the headache as mh7 intermittent, throbbing, waxing and waning. Onset: The symptoms/episode began/occurred 4 day(s) ago. Associated signs and symptoms: Pertinent positives: Photophobia Pertinent negatives: altered mental status, dizziness, fever, malaise, nausea, neck stiffness, paresthesias, rash, sinus congestion, sinus tenderness, vision changes, vision loss, vomiting, weakness, vertigo. Severity of symptoms: At its worst the pain was moderate, 2 day(s) ago, in the emergency department the pain has improved, moderately. Headache History: The patient has had previous headaches and this one is similar to previous episodes. The symptoms are alleviated by nothing. the symptoms are aggravated by lights, noise, stress. The patient has experienced similar episodes in the past, multiple times. Historical: - Allergies: 18:35 No Known Allergies; ll1 - PMHx: 18:35 Anxiety; Asthma; Back pain; Depression; fx in middle of back; GERD; Hypertension; UTI; ll1 - Immunization history:: Flu vaccine is not up to date. - Social history:: Smoking status: Patient reports the use of cigarette tobacco products, smokes one pack cigarettes per day. ROS: 19:35 Constitutional: Negative for fever, chills, and weight loss, Eyes: Negative for injury, mh7 pain, redness, and discharge, ENT: Negative for injury, pain, and discharge, Neck: Negative for injury, pain, and swelling, Cardiovascular: Negative for chest pain, palpitations, and edema, Respiratory: Negative for shortness of breath, cough, wheezing, and pleuritic chest pain, Abdomen/GI: Negative for abdominal pain, nausea, vomiting, diarrhea, and constipation, Back: Negative for injury and pain, : Negative for injury, bleeding, discharge, and swelling, MS/Extremity: Negative for injury and deformity, Skin: Negative for injury, rash, and discoloration, Psych: Negative for depression, anxiety, suicide ideation, homicidal ideation, and hallucinations, Allergy/Immunology: Negative for hives, rash, and allergies, Endocrine: Negative for neck swelling, polydipsia, polyuria, polyphagia, and marked weight changes, Hematologic/Lymphatic: Negative for swollen nodes, abnormal bleeding, and unusual bruising. Exam: 19:35 Constitutional: This is a well developed, well nourished patient who is awake, alert, mh7 and in no acute distress. Head/Face: Normocephalic, atraumatic. Eyes: Pupils equal round and reactive to light, extra-ocular motions intact. Lids and lashes normal. Conjunctiva and sclera are non-icteric and not injected. Cornea within normal limits. Periorbital areas with no swelling, redness, or edema. Neck: Trachea midline, no thyromegaly or masses palpated, and no cervical lymphadenopathy. Supple, full range of motion without nuchal rigidity, or vertebral point tenderness. No Meningismus. Chest/axilla: Normal chest wall appearance and motion. Nontender with no deformity. No lesions are appreciated. Cardiovascular: Regular rate and rhythm with a normal S1 and S2. No gallops, murmurs, or rubs. Normal PMI, no JVD. No pulse deficits. Respiratory: Lungs have equal breath sounds bilaterally, clear to auscultation and percussion. No rales, rhonchi or wheezes noted. No increased work of breathing, no retractions or nasal flaring. Abdomen/GI: Soft, non-tender, with normal bowel sounds. No distension or tympany. No guarding or rebound. No evidence of tenderness throughout. Back: No spinal tenderness. No costovertebral tenderness. Full range of motion. Skin: Warm, dry with normal turgor. Normal color with no rashes, no lesions, and no evidence of cellulitis. MS/ Extremity: Pulses equal, no cyanosis. Neurovascular intact. Full, normal range of motion. Neuro: Awake and alert, GCS 15, oriented to person, place, time, and situation. Cranial nerves II-XII grossly intact. Motor strength 5/5 in all extremities. Sensory grossly intact. Cerebellar exam normal. Normal gait. Psych: Awake, alert, with orientation to person, place and time. Behavior, mood, and affect are within normal limits. Vital Signs: 18:33 BP 162 / 91; Pulse 92; Resp 17; Temp 97.9; Pulse Ox 97% ; Weight 81.65 kg; Height 5 ft. ll1 5 in. (165.10 cm); Pain 10/10; 19:38 BP 159 / 90; Pulse 91; Resp 16 S; Pulse Ox 97% on R/A; ca1 20:40 BP 140 / 78; Pulse 81; Resp 17 S; Pulse Ox 97% on R/A; ca1 21:43 BP 118 / 95; Pulse 88; Resp 15 S; Pulse Ox 98% on R/A; ca1 21:55 BP 140 / 80; Pulse 81; Resp 15 S; Pulse Ox 98% on R/A; ca1 18:33 Body Mass Index 29.95 (81.65 kg, 165.10 cm) ll1 Farrah Coma Score: 21:40 Eye Response: spontaneous(4). Verbal Response: oriented(5). Motor Response: obeys mh7 commands(6). Total: 15. MDM: 19:25 Patient medically screened. mh7 21:40 Differential diagnosis: cluster headache, intracerebral hemorrhage, migraine, tension mh7 headache. Data reviewed: vital signs, nurses notes, old medical records, lab test result(s), CBC, electrolytes, urinalysis, urine drug screen, radiologic studies, CT scan. Data interpreted: Pulse oximetry: on room air is 97 %. Interpretation: normal. Counseling: I had a detailed discussion with the patient and/or guardian regarding: the historical points, exam findings, and any diagnostic results supporting the discharge/admit diagnosis, the presence of at least one elevated blood pressure reading (>120/80) during this emergency department visit, lab results, radiology results, the need for outpatient follow up, to return to the emergency department if symptoms worsen or persist or if there are any questions or concerns that arise at home. Response to treatment: the patient's symptoms have resolved after treatment, the patient's blood pressure is in an acceptable range, mental status has returned to baseline, the patient no longer shows bradycardia, the patient is not short of breath, the patient is not tachycardic, the patient's pain is gone, the patient's temperature has normalized. 09/01 19:26 Order name: UDS; Complete Time: 20:42 mh7 09/01 19:27 Order name: CBC with Diff; Complete Time: 20:42 7 09/01 19:27 Order name: Basic Metabolic Panel; Complete Time: 20:42 7 09/01 19:27 Order name: LFT's; Complete Time: 20:42 [facility] 09/01 19:27 Order name: Protime (+inr); Complete Time: 20:42 [facility] 09/01 19:27 Order name: Ptt, Activated; Complete Time: 20:42 [facility] 09/01 19:26 Order name: Urine Dipstick-Ancillary (obtain specimen); Complete Time: 20:01 [facility] 09/01 19:28 Order name: CT Head Brain wo Cont; Complete Time: 20:42 [facility] 09/01 20:02 Order name: Urine Dipstick--Ancillary (enter results); Complete Time: 20:42 mw2 Administered Medications: 19:51 Drug: NS 0.9% 1000 ml Route: IV; Rate: 1000 ml; Site: right antecubital; ca1 21:05 Follow up: Response: No adverse reaction; IV Status: Completed infusion; IV Intake: ca1 1000ml 19:53 Drug: Benadryl 50 mg Route: IVP; Site: right antecubital; ca1 21:06 Follow up: Response: No adverse reaction; Pain is decreased ca1 19:55 Drug: Reglan 10 mg Route: IVP; Site: right antecubital; ca1 21:06 Follow up: Response: No adverse reaction; Nausea is decreased ca1 Disposition: 09/01/20 21:43 Discharged to Home. Impression: Headache, UTI. - Condition is Stable. - Discharge Instructions: Urinary Tract Infection, Adult, [id number], General Headache Without Cause, [id number]. - Prescriptions for Benadryl 25 mg Oral Capsule - take 1 capsule by ORAL route every 6 hours As needed; 12 tablet. Keflex 500 mg Oral Capsule - take 1 capsule by ORAL route every 12 hours for 7 days; 14 capsule. - Medication Reconciliation Form, Thank You Letter, Antibiotic Education, Prescription Opioid Use form. - Follow up: Private Physician; When: 1 - 2 days; Reason: Worsening of condition, Recheck today's complaints, Continuance of care, Re-evaluation by your physician. Follow up: Payton Roberts MD; When: 2 - 3 days; Reason: Worsening of condition, Recheck today's complaints. Follow up: Mark Parker MD; When: 2 - 3 days; Reason: Worsening of condition, Recheck today's complaints. - Problem is an acute exacerbation. - Symptoms have improved. Signatures: Dispatcher [employer] EDMS Angelica Arellano RN RN ca1 Bert Franklin RN RN ll1 Jewel Rudolph MD MD mh7 Corrections: (The following items were deleted from the chart) 21:55 21:43 09/01/2020 21:43 Discharged to Home. Impression: Headache; UTI. Condition is ca1 Stable. Forms are Medication Reconciliation Form, Thank You Letter, Antibiotic Education, Prescription Opioid Use. Follow up: Private Physician; When: 1 - 2 days; Reason: Worsening of condition, Recheck today's complaints, Continuance of care, Re-evaluation by your physician. Follow up: Payton Roberts; When: 2 - 3 days; Reason: Worsening of condition, Recheck today's complaints. Follow up: Mark Parker; When: 2 - 3 days; Reason: Worsening of condition, Recheck today's complaints. Problem is an acute exacerbation. Symptoms have improved. mh7
[2020-09-01 22:36] VITALS: TEMP 97.9
[2020-09-01 22:44] VITALS: O2SAT 98
[2020-09-01 22:46] VITALS: BP 140/80
== END 2020-09-01 21:55 | disposition home or self-care (01) ==
LOC: ER 18:15
DX: N39.0 Urinary tract infection, site not specified (principal); I10 Essential (primary) hypertension; F17.210 Nicotine dependence, cigarettes, uncomplicated
CPT/HCPCS: 96361; 85025; 80048; 36415; 85610; 80076; 80307 ×8; 85730; 81003; 70450; 96375; 96374; 99284; J2765; J1200; J7030

== ENCOUNTER 2020-11-21 18:58 | Emergency (ER) | payer OTHER ==
--- OUTSIDE RECORDS SUMMARY | 2020-11-21 19:00 | XMS REPORT | Summary of Care ---
:1960 Author Organization [facility] Address [address] [place] [id number] Care Team Providers Name Role Phone Flavio Primary Care Provider Reason for Visit Reason Comments Refill Request Encounter Details Date Type Department Care Team Description 09/28/[address] [facility] Orthopaedic Carissa Lowry S, PAC Refill Request Surgery- [place] [address] [facility], [place] [address] [address] [place] [address] [phone] Allergies No Known Allergiesdocumented as of this encounter (statuses as of 10/03/2020) Medications Medication Sig Dispensed Refills Start End [...] 2 mg 0 Ac tive tablet 0 albuterol 90 Inhale 2 Puffs 8.5 g 0 Ac tive mcg/actuation every 4 (four) 0 inhalerIndications: hours as Uncomplicated asthma, needed for unspecified asthma Wheezing or severity, unspecified Shortness of whether persistent, Breath. Pain of left lower extremity, Chronic pain of left knee, Medication refill acetaminophen-codeine Take 1-2 20 tablet 0 Active 300-30 mg tablets by 0 tabletIndications: mouth every 6 chronic pain (six) hours as needed for Pain (scale 4-6). Indications: chronic pain albuterol 90 Inhale 2 Puffs 8.5 g 0 Ac tive mcg/actuation every 4 (four) 0 inhalerIndications: SOB hours as (shortness of breath), needed for Intermittent asthma, Wheezing or unspecified asthma Shortness of severity, unspecified Breath. whether complicated naproxen (NAPROSYN) 500 Take 1 tablet 30 tablet 0 Active mg tabletIndications: by mouth 2 0 Strain of lumbar (two) times region, initial daily with encounter meals. cyclobenzaprine 5 mg Take 1 tablet 20 tablet 0 Active tabletIndications: by mouth 3 0 Strain of lumbar (three) times region, initial daily as encounter needed for Muscle Spasms. DICLOFENAC 75 mg EC TAKE 1 TABLET 60 tablet 1 Active tabletIndications: BY MOUTH TWICE 0 Chronic pain of both DAILY WITH knees MEALS DICLOFENAC 75 mg EC TAKE 1 TABLET 60 tablet 1 Discontinued tabletIndications: BY MOUTH TWICE 0 20 Chronic pain of both DAILY WITH knees MEALS documented as of this encounter (statuses as of 10/03/2020) Active Problems Problem Noted Date Altered mental status 07/17/2019 Obesity (BMI 30-39.9) 05/31/2019 Hypertensive urgency 05/31/2019 documented as of this encounter (statuses as of 10/03/2020) Social History Tobacco Use Types Packs/Day Years Used Date Current Every Day Smoker 1 5 Smokeless Tobacco: Never Used Alcohol Use Drinks/Week oz/Week Comments Yes Alcohol Habits Answer Date Recorded How often do you have a drink containing 4 or more times a [facility] 07/17/2019 alcohol? How many drinks containing alcohol [...] Assigned at Date Recorded Not on file documented as of this encounter Last Filed [...] filedocumented in this encounter Visit Diagnoses Diagnosis Chronic pain of both knees documented in this encounter Insurance Payer Benefit Plan / Subscriber ID Effective Phone Address T ype Group Dates [facility] [id number] 2020-Pres Med icare Adv HEALTHCARE - MEDICARE ent O MANAGED ADVANTAGE MEDICARE QUOC KUMARI [id number] 2016-Pres [address] Medica id HEALTHCARE - HEALTHCARE [place] [id number] MANAGED MEDICAID [place], [place] documented as of this encounter Advance Directives Name Relationship Healthcare Agent Communication Relationship Martha John Child Health Care Agent [phone] Anjel (Mobile)
--- OUTSIDE RECORDS SUMMARY | 2020-11-21 19:00 | XMS REPORT | Continuity of Care Document ---
:1960 Author Organization [facility] t Address [address] [place] [address] Care Team Providers Name Role Phone Rimma Cabrales Attending Clinician Isaac WHITE Attending Clinician Ary FIGUEROA, T Attending Clinician Unavailable Sindy Tavera Attending Clinician Doctor Unassigned, Name Attending Clinician Unavailable Desi NEWMAN S Attending Clinician Problems This patient has no known problems. Allergies, Adverse Reactions, Alerts This patient has no known allergies or adverse reactions. Medications This patient has no known medications. Procedures This patient has no known procedures. Encounters Start End Encounter Admission Attending Care Care Encounter Source Date/Time Date/Time Type Type Clinicians Facility Department ID 2020-09-28 2020-09-28 Refill BRANDEE Lowry [id number] 00:00:00 00:00:00 [facility] [id number] Surgical [id number] Specialti [id number] [address] [place] 2020-07-18 2020-07-18 Emergency BRANDEE Gray [id number] 11:27:00 12:25:00 Cristobal Desir [id number] [place] 4.2.7.2.686 [place] [id number] [id number] 2020-07-14 2020-07-14 Emergency Isaac [facility] [id number] 10:35:00 11:01:00 Cristobal Desir [id number] [place] 4.2.7.2.686 [place] [id number] 084 2020-07-06 2020-07-06 Letter KARYN Mcallister [id number] 00:00:00 00:00:00 (Out) Johnna HENDERSON [id number] [place] [id number] 2020-07-03 2020-07-03 Emergency Ivan, K [facility] [id number] 14:13:00 17:14:00 Sindy Desir [id number] [place] 4.2.7.2.686 [place] [id number] [id number] 2020-06-18 2020-06-18 Orders Doctor KARYN [id number] 00:00:00 00:00:00 Only Unassigned, BEATRIZ [id number] Stanley [facility] 4.2.7.2.686 [id number] [id number] 2020-06-11 2020-06-11 Emergency Cristobal Gray [facility] 1.2.840. [id number] 07:22:31 07:47:00 Gray Cristobal Desir [id number] [place] 4.2.7.2.686 [place] [id number] [id number] 2020-06-11 2020-06-11 Orders Doctor KARYN [id number] 00:00:00 00:00:00 Only UnassignedBEATRIZ [id number] [place] [address]686 [id number] [id number] 2020-06-03 2020-06-03 Emergency Desi [facility] [id number] 15:21:35 18:43:00 Kellie Desir [id number] [place] 4.2.7.2.686 [place] [id number] 084 2020-06-03 2020-06-03 Orders Doctor KARYN [id number] 00:00:00 00:00:00 Only Unassigned, BEATRIZ [id number] [place] [facility] 4.2.7.2.686 [id number] [id number] 2020-05-31 2020-05-31 Telephone BRANDEE Lowry [id number] 00:00:00 00:00:00 [facility] [id number] Surgical 4.2.7.2.686 Specialti [id number] [address] [place] 2020-05-18 2020-05-18 Office BRANDEE Lowry [id number] 15:22:03 16:00:04 Visit [facility] [id number] Surgical 4.2.7.2.686 Specialti [phone] [address] [place] Results This patient has no known results.
[2020-11-21 21:01] LABS: Absolute Lymphocytes (CBC) 2.2 K/uL (0.7-4.9); Basophils % 1.2 % (0-1.3); Hematocrit 37.2 % (36.0-45.0); Lymphocytes % 37.8 % (15.3-44.8); MPV 7.4 fL (7.6-11.3); RBC Red Blood Cell Count 4.03 M/uL (3.86-4.86)
--- NOTE | 2020-11-21 21:04 | RAD REPORT ---
EXAM DESCRIPTION: Colette Single View11/21/2020 8:47 pm CLINICAL HISTORY: Cough COMPARISON: 2017 FINDINGS: The lungs appear clear of acute infiltrate. The heart is borderline enlarged IMPRESSION: No acute abnormalities displayed
[2020-11-21] MEDS ORDERED: MORPHINE 4 MG/ML SYR ONE (21:12)
[2020-11-21] MEDS ORDERED: LEVALBUTEROL 1.25 MG/3 ML NEB ONE (21:13)
[2020-11-21] MEDS ORDERED: ONDANSETRON 4 MG/2 ML VIAL ONE (21:13)
[2020-11-21] MEDS ORDERED: NA CHLORIDE 0.9% 1,000 ML ONE (21:13)
[2020-11-21] MEDS ORDERED: IPRATROPIUM BROM 0.5MG/2.5ML ONE (21:13)
[2020-11-21 21:19] LABS: ALT/SGPT 20 U/L (12-78); AST/SGOT 16 U/L (15-37); Alkaline Phosphatase 72 U/L (45-117); BUN Blood Urea Nitrogen 13 mg/dL (7-18); Bicarbonate 29 mmol/L (21-32); Bilirubin Total 0.2 mg/dL (0.2-1.0); CKMB Creatine Kinase MB < 1.0 ng/mL (0.3-3.6); Creatine Phosphokinase 130 U/L (26-192); Glucose Level 86 mg/dL (74-106); Lipase 107 U/L (73-393); Potassium 3.6 mmol/L (3.5-5.1); Protein, Total 6.7 g/dL (6.4-8.2); Sodium Level 141 mmol/L (136-145); Troponin (Emerg Dept Use Only) 0.02 ng/mL (0.0-0.045)
[2020-11-21 21:35] LABS: Blood Morphology Comment NOT SEEN (NOT SEEN); Platelet Estimate ADEQ; White Blood Cell Scan OK (OK)
[2020-11-21] MEDS ORDERED: dexAMETHasone 10 MG/ML VIAL ONE (21:38)
--- NOTE | 2020-11-21 21:49 | EDPHYS ---
Physician Documentation [facility] Name: Afua Cunningham Age: 59 yrs Sex: Female : 1960 Arrival Date: 11/21/2020 Time: 19:02 Bed 19 Private MD: ESTEBAN Physician Shayne Hobbs HPI: 11/21 20:25 This 59 yrs old Black Female presents to ER via Ambulatory with complaints of Muscle mar Pain. 20:25 The patient presents with decreased range of motion, pain. The complaints affect the mar right leg and left leg. Context: The problem was sustained at an unknown site. Onset: The symptoms/episode began/occurred 2 day(s) ago. Modifying factors: The symptoms are alleviated by nothing. the symptoms are aggravated by nothing. Associated signs and symptoms: Pertinent positives: weakness. The patient presents with pain that is chronic, with no known mechanism of injury, and decreased range of motion. The symptoms are located in the low back. Onset: The symptoms/episode began/occurred 3 day(s) ago. The pain does not radiate. Associated signs and symptoms: The patient has no apparent associated signs or symptoms. Historical: - Allergies: 19:19 No Known Allergies; ll1 - Home Meds: 22:34 amlodipine 10 mg tab 1 tab once daily [Active]; carvedilol 6.25 mg Oral tab [Active]; lp1 Clonazepam Oral [Active]; losartan 100 mg Oral tab 1 tab once daily [Active]; pantoprazole 20 mg Oral chew [Active]; trazodone 100 mg Oral tab [Active]; venlafaxine Oral [Active]; - PMHx: 19:19 Asthma; Anxiety; Back pain; Depression; fx in middle of back; GERD; Hypertension; UTI; ll1 - PSHx: 19:19 Tubal ligation; cyst removed from ears; eye surgery; ll1 - Social history:: Smoking status: Patient reports the use of cigarette tobacco products, smokes one pack cigarettes per day. - Family history:: not pertinent. ROS: 20:25 Constitutional: Negative for fever, chills, and weight loss, Eyes: Negative for injury, mar pain, redness, and discharge, ENT: Negative for injury, pain, and discharge, Neck: Negative for injury, pain, and swelling, Cardiovascular: Negative for chest pain, palpitations, and edema, Respiratory: Negative for shortness of breath, cough, wheezing, and pleuritic chest pain, Abdomen/GI: Negative for abdominal pain, nausea, vomiting, diarrhea, and constipation, : Negative for injury, bleeding, discharge, and swelling, MS/Extremity: Negative for injury and deformity, Skin: Negative for injury, rash, and discoloration, Neuro: Negative for headache, weakness, numbness, tingling, and seizure, Psych: Negative for depression, anxiety, suicide ideation, homicidal ideation, and hallucinations, Allergy/Immunology: Negative for hives, rash, and allergies, Endocrine: Negative for neck swelling, polydipsia, polyuria, polyphagia, and marked weight changes, Hematologic/Lymphatic: Negative for swollen nodes, abnormal bleeding, and unusual bruising. 20:25 Back: Positive for decreased range of motion, pain at rest, of the lumbar area, left low back and right low back. Exam: 20:25 Constitutional: This is a well developed, well nourished patient who is awake, alert, mar and in no acute distress. Head/Face: Normocephalic, atraumatic. Eyes: Pupils equal round and reactive to light, extra-ocular motions intact. Lids and lashes normal. Conjunctiva and sclera are non-icteric and not injected. Cornea within normal limits. Periorbital areas with no swelling, redness, or edema. ENT: Nares patent. No nasal discharge, no septal abnormalities noted. Tympanic membranes are normal and external auditory canals are clear. Oropharynx with no redness, swelling, or masses, exudates, or evidence of obstruction, uvula midline. Mucous membranes moist. Neck: Trachea midline, no thyromegaly or masses palpated, and no cervical lymphadenopathy. Supple, full range of motion without nuchal rigidity, or vertebral point tenderness. No Meningismus. Chest/axilla: Normal chest wall appearance and motion. Nontender with no deformity. No lesions are appreciated. Cardiovascular: Regular rate and rhythm with a normal S1 and S2. No gallops, murmurs, or rubs. Normal PMI, no JVD. No pulse deficits. Respiratory: Lungs have equal breath sounds bilaterally, clear to auscultation and percussion. No rales, rhonchi or wheezes noted. No increased work of breathing, no retractions or nasal flaring. Abdomen/GI: Soft, non-tender, with normal bowel sounds. No distension or tympany. No guarding or rebound. No evidence of tenderness throughout. Female : Normal external genitalia. Skin: Warm, dry with normal turgor. Normal color with no rashes, no lesions, and no evidence of cellulitis. MS/ Extremity: Pulses equal, no cyanosis. Neurovascular intact. Full, normal range of motion. Neuro: Awake and alert, GCS 15, oriented to person, place, time, and situation. Cranial nerves II-XII grossly intact. Motor strength 5/5 in all extremities. Sensory grossly intact. Cerebellar exam normal. Normal gait. Psych: Awake, alert, with orientation to person, place and time. Behavior, mood, and affect are within normal limits. 20:25 Musculoskeletal/extremity: ROM: limited active range of motion, limited passive range of motion, achy, Circulation is intact in all extremities. Sensation intact. Compartment Syndrome exam of affected extremity: is normal. DVT Exam: no swelling, no tenderness, negative Homans' sign noted on exam, no appreciated bluish discoloration, no erythema, no increased warmth, pain. 20:25 Neuro: Orientation: is normal, appropriate for stated age, no acute changes, Mentation: is normal, appropriate for stated age, no acute changes, Memory: is normal, appropriate for stated age, no acute changes, Cranial nerves: grossly normal, is grossly normal based on the patient's age, no acute changes, Cerebellar function: is grossly normal, is grossly normal based on the patient's age, no acute changes, Sensation: no obvious gross deficits, appropriate no acute changes, Gait: limited by pain, seizure activity, is not displayed by the patient. 20:51 ECG was reviewed by the Attending Physician. mar Vital Signs: 19:20 BP 174 / 97; Pulse 93; Resp 18; Temp 97.0; Pulse Ox 100% ; Weight 81.65 kg; Height 5 ll1 ft. 1 in. (154.94 cm); Pain 10/10; 20:30 BP 158 / 95; Pulse 93; Resp 18; Pulse Ox 99% on R/A; lp1 21:30 BP 169 / 98; Pulse 94; Resp 18; Pulse Ox 100% on R/A; lp1 22:15 BP 123 / 67; Pulse 69; Resp 18; Pulse Ox 98% on R/A; lp1 19:20 Body Mass Index 34.01 (81.65 kg, 154.94 cm) ll1 MDM: 20:04 Patient medically screened. [facility] 20:28 Differential diagnosis: tendonitis, arthritis, chronic back pain, Fatigue Obesity mar Osteoarthritis sprain, Ureterolithiasis. Data reviewed: vital signs, nurses notes, lab test result(s), EKG, radiologic studies, plain films. Data interpreted: pcu rn: rate is 93 beats/min, rhythm is regular, Pulse oximetry: on room air is 100 %. Test interpretation: by ED physician or midlevel provider: ECG, plain radiologic studies. 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 11/21 20:24 Order name: CBC with Diff; Complete Time: 21:48 [facility] 11/21 20:24 Order name: Comprehensive Metabolic Panel; Complete Time: 21:35 [facility] 11/21 20:24 Order name: CK; Complete Time: 21:35 [facility] 11/21 20:24 Order name: Ckmb; Complete Time: 21:35 [facility] 11/21 20:24 Order name: Troponin (emerg Dept Use Only); Complete Time: 21:35 [facility] 11/21 20:24 Order name: Lipase; Complete Time: 21:35 [facility] 11/21 20:24 Order name: Chest Single View XRAY; Complete Time: 21:35 [facility] 11/21 21:35 Order name: CBC Smear Scan; Complete Time: 21:48 [facility] 11/21 22:15 Order name: Urine Dipstick--Ancillary (enter results) 2 11/21 20:24 Order name: Urine Dipstick-Ancillary (obtain specimen); Complete Time: 22:25 [facility] 11/21 20:24 Order name: EKG; Complete Time: 20:25 [facility] 11/21 20:24 Order name: EKG - Nurse/Tech; Complete Time: 20:35 mar EC:51 Rate is 90 beats/min. Rhythm is regular. QRS [place] is Normal. [place] interval is normal. QRS [place] interval is normal. QT interval is normal. No Q waves. T waves are Normal. No ST changes noted. Clinical impression: NSR w/ Non-specific ST/T Changes, LVH, and No evidence of ischemia. Interpreted by me. Reviewed by me. Administered Medications: 21:20 Drug: Zofran (Ondansetron) 4 mg Route: IVP; Site: left forearm; jb4 22:15 Follow up: Response: No adverse reaction lp1 21:20 Drug: Xopenex 2.5 mg Route: Inhalation; jb4 21:20 Drug: AtroVENT Aerosol 0.5 mg Route: Inhalation; jb4 21:22 Drug: morphine 4 mg Route: IVP; Site: left forearm; jb4 22:15 Follow up: Response: Marked relief of symptoms; Pain is decreased lp1 21:26 Drug: Decadron - Dexamethasone 10 mg Route: IVP; Site: left forearm; jb4 22:15 Follow up: Response: No adverse reaction lp1 21:27 Drug: NS 0.9% 500 ml Route: IV; Rate: bolus; Site: left forearm; jb4 22:00 Follow up: IV Status: Completed infusion; IV Intake: 500ml lp1 22:25 Not Given (PT d/c'ed prior to administration.): NS 0.9% 1000 ml IV at 125 ml/hr jb4 continuous Disposition: 11/21/20 21:49 Discharged to Home. Impression: Pain in left leg - misculoskelatal, Pain in right leg - musculskeltal, Malaise and fatigue. - Condition is Stable. - Discharge Instructions: Musculoskeletal Pain, Weakness, Cryotherapy, Ybzy-up-Jtde, Weakness, Mikh-av-Kudw, Cryotherapy. - Prescriptions for Tylenol- Codeine #3 300-30 mg Oral Tablet - take 2 tablets by ORAL route every 6 hours As needed; 20 tablet. Medrol (Joe) 4 mg Oral Tablets, Dose Pack - take 1 tablet by ORAL route as directed - follow package instructions; 1 packet. - Medication Reconciliation Form, Thank You Letter, Antibiotic Education, Prescription Opioid Use form. - Follow up: Private Physician; When: 2 - 3 days; Reason: Recheck today's complaints, Continuance of care, Re-evaluation by your physician. - Problem is new. - Symptoms have improved. Signatures: Dispatcher [employer] EDMS Shayne Hobbs MD MD cha Pena, Laura RN RN lp1 Fernando Mabry RN RN jb4 Bert Franklin, RN RN ll1 Corrections: (The following items were deleted from the chart) 22:34 21:49 11/21/2020 21:49 Discharged to Home. Impression: Pain in left leg - lp1 misculoskelatal; Pain in right leg - musculskeltal; Malaise and fatigue. Condition is Stable. Discharge Instructions: Musculoskeletal Pain, Weakness, Cryotherapy, Iotv-zp-Zysv, Weakness, Bodq-kv-Dgtw, Cryotherapy. Prescriptions for Tylenol-Codeine #3 300-30 mg Oral Tablet - take 2 tablets by ORAL route every 6 hours As needed; 20 tablet, Medrol (Joe) 4 mg Oral Tablets, Dose Pack - take 1 tablet by ORAL route as directed - follow package instructions; 1 packet. and Forms are Medication Reconciliation Form, Thank You Letter, Antibiotic Education, Prescription Opioid Use. Follow up: Private Physician; When: 2 - 3 days; Reason: Recheck today's complaints, Continuance of care, Re-evaluation by your physician. Problem is new. Symptoms have improved. mar
--- NOTE | 2020-11-21 21:49 | ER ---
Nurse's Notes [facility] Name: Afua Cunningham Age: 59 yrs Sex: Female : 1960 Arrival Date: 11/21/2020 Time: 19:02 Bed 19 Private MD: Diagnosis: Pain in left leg-misculoskelatal;Pain in right leg-musculskeltal;Malaise and fatigue Presentation: 11/21 19:20 Chief complaint: Patient states: Low back pain and bilateral leg pains for 3 weeks. ll1 States she believes she is having a MS flaring-up. No fever. No N/V/D. Coronavirus screen: Client denies travel out of the [place] in the last 14 days. At this time, the client does not indicate any symptoms associated with coronavirus-19. Ebola Screen: Patient denies travel to an Ebola-affected area in the 21 days before illness onset. Initial Sepsis Screen: Does the patient meet any 2 criteria? No. Patient's initial sepsis screen is negative. Does the patient have a suspected source of infection? No. Patient's initial sepsis screen is negative. Risk Assessment: Do you want to hurt yourself or someone else? Patient reports no desire to harm self or others. Onset of symptoms was October 31, 2020. 19:20 Method Of Arrival: Ambulatory 1 19:20 Acuity: ASHA 3 ll1 Historical: - Allergies: 19:19 No Known Allergies; ll1 - Home Meds: 22:34 amlodipine 10 mg tab 1 tab once daily [Active]; carvedilol 6.25 mg Oral tab [Active]; lp1 Clonazepam Oral [Active]; losartan 100 mg Oral tab 1 tab once daily [Active]; pantoprazole 20 mg Oral chew [Active]; trazodone 100 mg Oral tab [Active]; venlafaxine Oral [Active]; - PMHx: 19:19 Asthma; Anxiety; Back pain; Depression; fx in middle of back; GERD; Hypertension; UTI; ll1 - PSHx: 19:19 Tubal ligation; cyst removed from ears; eye surgery; ll1 - Social history:: Smoking status: Patient reports the use of cigarette tobacco products, smokes one pack cigarettes per day. - Family history:: not pertinent. Screenin:33 Abuse screen: Denies threats or abuse. Denies injuries from another. Nutritional lp1 screening: No deficits noted. Tuberculosis screening: No symptoms or risk factors identified. Fall Risk None identified. Assessment: 19:30 General: Appears in no apparent distress. uncomfortable, Behavior is calm, cooperative, jb4 appropriate for age. Pain: Complains of pain in Generalized body aches Pain does not radiate. Pain currently is 9 out of 10 on a pain scale. Quality of pain is described as aching. Cardiovascular: Patient's skin is warm and dry. Respiratory: Airway is patent Respiratory effort is even, unlabored, Respiratory pattern is regular, symmetrical. GI: No signs and/or symptoms were reported involving the gastrointestinal system. : No signs and/or symptoms were reported regarding the genitourinary system. EENT: No signs and/or symptoms were reported regarding the EENT system. Derm: Skin is intact, Skin is pink, warm \T\ dry. Musculoskeletal: Circulation, motion, and sensation intact. Range of motion: intact in all extremities. 20:30 Reassessment: Patient appears in no apparent distress at this time. Patient and/or jb4 family updated on plan of care and expected duration. Pain level reassessed. Patient is alert, oriented x 3, equal unlabored respirations, skin warm/dry/pink. 21:30 Reassessment: Patient appears in no apparent distress at this time. Patient and/or jb4 family updated on plan of care and expected duration. Pain level reassessed. Patient is alert, oriented x 3, equal unlabored respirations, skin warm/dry/pink. Patient states feeling better. 22:32 Reassessment: Patient reports pain decreased, relief at this time;. Neuro: Gait is lp1 steady. Vital Signs: 19:20 BP 174 / 97; Pulse 93; Resp 18; Temp 97.0; Pulse Ox 100% ; Weight 81.65 kg; Height 5 ll1 ft. 1 in. (154.94 cm); Pain 10/10; 20:30 BP 158 / 95; Pulse 93; Resp 18; Pulse Ox 99% on R/A; lp1 21:30 BP 169 / 98; Pulse 94; Resp 18; Pulse Ox 100% on R/A; lp1 22:15 BP 123 / 67; Pulse 69; Resp 18; Pulse Ox 98% on R/A; lp1 19:20 Body Mass Index 34.01 (81.65 kg, 154.94 cm) ll1 ED Course: 19:02 Patient arrived in ED. ds1 19:16 Mist[facility] Barragan [facility]-C [facility] kb 19:16 Sonny Murray MD is Attending Physician. kb 19:18 Arm band placed on. ll1 19:22 Triage completed. ll1 20:04 Shayne Hobbs MD is Attending Physician. [facility] 20:06 Fernando Mabry, [place] is Primary Nurse. jb4 20:39 EKG done, by ED staff, reviewed by Shayne Hobbs MD. Patient maintains SpO2 saturation jp3 greater than 95% on room air. 20:41 Bed in low position. Call light in reach. Warm blanket given. Verbal reassurance given. jp3 potline monitor on. Pulse ox on. NIBP on. 20:47 Chest Single View XRAY In Process Unspecified. EDMS 20:50 Missed attempt(s): 20 gauge in left antecubital area. Inserted saline lock: 22 gauge in lp1 left forearm, using aseptic technique. Blood collected. 22:33 No provider procedures requiring assistance completed. IV discontinued, No lp1 redness/swelling at site. Pressure dressing applied. Administered Medications: 21:20 Drug: Zofran (Ondansetron) 4 mg Route: IVP; Site: left forearm; jb4 22:15 Follow up: Response: No adverse reaction lp1 21:20 Drug: Xopenex 2.5 mg Route: Inhalation; jb4 21:20 Drug: AtroVENT Aerosol 0.5 mg Route: Inhalation; jb4 21:22 Drug: morphine 4 mg Route: IVP; Site: left forearm; jb4 22:15 Follow up: Response: Marked relief of symptoms; Pain is decreased lp1 21:26 Drug: Decadron - Dexamethasone 10 mg Route: IVP; Site: left forearm; jb4 22:15 Follow up: Response: No adverse reaction lp1 21:27 Drug: NS 0.9% 500 ml Route: IV; Rate: bolus; Site: left forearm; jb4 22:00 Follow up: IV Status: Completed infusion; IV Intake: 500ml lp1 22:25 Not Given (PT d/c'ed prior to administration.): NS 0.9% 1000 ml IV at 125 ml/hr jb4 continuous Intake: 22:00 IV: 500ml; Total: 500ml. lp1 Outcome: 21:49 Discharge ordered by . mar 22:33 Discharged to home ambulatory, with family. lp1 22:33 Condition: good 22:33 Discharge instructions given to patient, Instructed on discharge instructions, follow up and referral plans. medication usage, Demonstrated understanding of instructions, follow-up care, medications, Prescriptions given X 2. 22:34 Patient left the ED. lp1 Signatures: Dispatcher [employer] EDMS Misti Barragan, FLAT SCREEN WORKER-C FLAT SCREEN WORKER-Shayne Moralez MD MD cha Sanford, Demi ds1 Heather Blair, RN RN lp1 Fernando Mabry, RN RN jb4 Glenn Hernandez jp3 Bert Franklin, RN RN ll1
[2020-11-21 22:27] LABS: Urine Blood TRACE (NEG); Urine Glucose NEGATIVE (NEG); Urine Protein NEGATIVE (NEG); Urine Specific Gravity 1.015 (1.005-1.030)
[2020-11-21 22:39] VITALS: TEMP 97
[2020-11-21 22:43] VITALS: BP 123/67; O2SAT 98
--- NOTE | 2020-11-24 16:17 | EKG ---
Test Date: 2020-11-21 Test Time: 20:32:32 Incident Commander: JUAREZ MEASUREMENT RESULTS: Intervals: Rate: 90 DC: 142 QRSD: 80 QT: 398 QTc: 486 [place]: P: 77 DC: 142 QRS: 39 T: 70 INTERPRETIVE STATEMENTS: Normal sinus rhythm Minimal voltage criteria for LVH, may be normal variant Septal infarct, age undetermined Abnormal ECG Compared to ECG 08/20/2018 16:10:46 Sinus tachycardia no longer present Early repolarization no longer present Myocardial infarct finding still present Electronically Signed On 11-24-20 16:10:11 BATCH UNIT TREATER by Sj Guzman
== END 2020-11-21 22:34 | disposition home or self-care (01) ==
LOC: ER 18:58
DX: M79.605 Pain in left leg (principal); M79.604 Pain in right leg; R53.81 Other malaise; R53.83 Other fatigue; I10 Essential (primary) hypertension; F41.8 Other specified anxiety disorders; F17.210 Nicotine dependence, cigarettes, uncomplicated
CPT/HCPCS: 96361; 93005; 85025; 36415; 82550; 81003; 84484; 82553; 83690; 80053; 71045; 96375; 96374; 99285; J1100; J7030; J2405

== ENCOUNTER 2020-12-18 20:44 | Emergency (ER) | payer OTHER ==
--- OUTSIDE RECORDS SUMMARY | 2020-12-18 20:47 | XMS REPORT | Continuity of Care Document ---
:1960 Author Organization [facility] t Address [address] [place] [address] Care Team Providers Name Role Phone Rimma [...] ID 2020-09-28 2020-09-28 Refill BRANDEE Lowry [id number] 00:00:00 00:00:00 [facility] [id number] Surgical [id number] Specialti [id number] [address] [place] 2020-07-18 2020-07-18 Emergency BRANDEE Gray [id number] 11:27:00 12:25:00 Cristobal Desir [id number] [place] [id number] [place] [id number] [id number] 2020-07-14 2020-07-14 Emergency Isaac [facility] [id number] 10:35:00 11:01:00 Cristobal Desir [id number] [place] [id number] [place] [id number] 084 2020-07-06 2020-07-06 Letter KARYN Mcallister [id number] 00:00:00 00:00:00 (Out) Johnna HENDERSON [id number] [place] [id number] 2020-07-03 2020-07-03 Emergency Janet Love [facility] [id number] 14:13:00 17:14:00 Sindy Desir [id number] [place] [id number] [place] [id number] 084 2020-06-18 2020-06-18 Orders Doctor KARYN [id number] 00:00:00 00:00:00 Only Unassigned, BEATRIZ [id number] [place] [facility] [id number] [id number] 2020-06-11 2020-06-11 Emergency Isaac Cristobal [facility] 1.2.840. [id number] 07:22:31 07:47:00 Erasto Graynicole Desir [id number] [place] [id number] [place] [id number] 084 2020-06-11 2020-06-11 Orders Doctor KARYN [id number] 00:00:00 00:00:00 Only UnassignedBEATRIZ [id number] [place] [id number] [id number] [id number] 2020-06-03 2020-06-03 Emergency Desi [facility] [id number] 15:21:35 18:43:00 Kellie Desir [id number] [place] [id number] [place] [id number] 084 2020-06-03 2020-06-03 Orders Doctor KARYN [id number] 00:00:00 00:00:00 Only Unassigned, BEATRIZ [id number] [place] [facility] [id number] [id number] 2020-05-31 2020-05-31 Telephone Essence IDHOLLY [id number] 00:00:00 00:00:00 [facility] [id number] Surgical [id number] Specialti [id number] es [address] [place] 2020-05-18 2020-05-18 Office Essence IDHOLLY [id number] 15:22:03 16:00:04 Visit [facility] [id number] Surgical [id number] Specialti [id number] [address] [place] Results This patient has no known results.
[2020-12-18 21:27] LABS: Absolute Lymphocytes (CBC) 2.6 K/uL (0.7-4.9); Basophils % 0.4 % (0-1.3); Hematocrit 37.5 % (36.0-45.0); Lymphocytes % 31.9 % (15.3-44.8); MPV 7.4 fL (7.6-11.3)
[2020-12-18] MEDS ORDERED: ALBUTEROL 2.5 MG/3 ML NEB SOL ONE (21:29)
[2020-12-18] MEDS ORDERED: METHYLPREDNISOLONE 125 MG INJ ONE (21:29)
[2020-12-18] MEDS ORDERED: IPRATROPIUM BROM 0.5MG/2.5ML ONE (21:30)
[2020-12-18 21:49] LABS: ALT/SGPT 20 U/L (12-78); AST/SGOT 15 U/L (15-37); Albumin 3.1 g/dL (3.4-5.0); Alkaline Phosphatase 88 U/L (45-117); BUN Blood Urea Nitrogen 16 mg/dL (7-18); Bicarbonate 29 mmol/L (21-32); Bilirubin Direct < 0.1 mg/dL (0-0.2); Bilirubin Total 0.1 mg/dL (0.2-1.0); Glucose Level 86 mg/dL (74-106); Magnesium 1.9 mg/dL (1.8-2.4); Potassium 3.3 mmol/L (3.5-5.1); Sodium Level 144 mmol/L (136-145); Troponin (Emerg Dept Use Only) < 0.02 ng/mL (0.0-0.045)
[2020-12-18 23:02] LABS: SARS-COV-2 RT PCR NEGATIVE (NEGATIVE)
[2020-12-19 00:40] LABS: Urine Blood 1+ (NEG); Urine Glucose NEGATIVE (NEG); Urine Protein NEGATIVE (NEG); Urine Specific Gravity 1.015 (1.005-1.030); Urine pH 5.5 (5.0-7.0)
[2020-12-19 00:41] LABS: Urine Bacteria <20 /HPF (<20); Urine RBC <5 /HPF (NONE SEEN)
--- NOTE | 2020-12-19 00:46 | ER ---
Nurse's Notes [facility] [place] Name: Afua Cunningham Age: 59 yrs Sex: Female : 1960 Arrival Date: 12/18/2020 Time: 20:47 Bed 13 Private MD: Diagnosis: Asthma Presentation: 12/18 20:49 Chief complaint: EMS states: PT C/O of SOB for 2 days now. Pt with HX of Chronic wh Bronchitis and Asthma and states she was out of meds at home. EN route PT VSS O2 at 95% RA. Coronavirus screen: Client denies travel out of the [place] in the last 14 days. shortness of breath, Client presents with at least one sign or symptom that may indicate coronavirus-19. Standard/surgical mask placed on the client. Ebola Screen: Patient negative for fever greater than or equal to 101.5 degrees Fahrenheit, and additional compatible Ebola Virus Disease symptoms Patient denies exposure to infectious person. Risk Assessment: Do you want to hurt yourself or someone else? Patient reports no desire to harm self or others. Onset of symptoms was December 18, 2020. 20:49 Method Of Arrival: EMS: [facility] 20:49 Acuity: ASHA 3 20:52 Initial Sepsis Screen: Does the patient meet any 2 criteria? HR > 90 bpm. Does the patient have a suspected source of infection? No. Patient's initial sepsis screen is negative. Historical: - Allergies: 20:51 No Known Allergies; - Home Meds: 20:52 amlodipine 10 mg tab 1 tab once daily [Active]; carvedilol 6.25 mg Oral tab [Active]; Clonazepam Oral [Active]; losartan 100 mg Oral tab 1 tab once daily [Active]; pantoprazole 20 mg Oral chew [Active]; trazodone 100 mg Oral tab [Active]; venlafaxine Oral [Active]; - PMHx: 20:51 Anxiety; Asthma; Back pain; Depression; fx in middle of back; GERD; Hypertension; UTI; - PSHx: 20:51 Tubal ligation; - Immunization history:: Adult Immunizations not up to date. - Social history:: Smoking status: Patient reports the use of cigarette tobacco products, smokes one-half pack cigarettes per day. Screenin:54 Abuse screen: Denies threats or abuse. Denies injuries from another. Nutritional screening: No deficits noted. Tuberculosis screening: No symptoms or risk factors identified. Fall Risk None identified. Assessment: 20:52 General: Appears in no apparent distress. Behavior is calm, cooperative, appropriate wh for age. Pain: Complains of pain in lower back. Neuro: Level of Consciousness is awake, alert, obeys commands, Oriented to person, place, time, situation, Appropriate for age. Cardiovascular: Heart tones S1 S2 Rhythm is sinus rhythm. Respiratory: Reports shortness of breath Airway is patent Respiratory effort is even, unlabored, Respiratory pattern is regular, symmetrical, Breath sounds are diminished. GI: Abdomen is flat, non-distended. : No signs and/or symptoms were reported regarding the genitourinary system. EENT: No signs and/or symptoms were reported regarding the EENT system. Derm: Skin is intact, is healthy with good turgor, Skin is pink, warm \T\ dry. normal. Musculoskeletal: Circulation, motion, and sensation intact. 23:00 Reassessment: Patient appears in no apparent distress at this time. No changes from previously documented assessment. Patient and/or family updated on plan of care and expected duration. Pain level reassessed. Patient is alert, oriented x 3, equal unlabored respirations, skin warm/dry/pink. 12/19 00:30 Reassessment: Patient appears in no apparent distress at this time. Patient and/or family updated on plan of care and expected duration. Pain level reassessed. Patient is alert, oriented x 3, equal unlabored respirations, skin warm/dry/pink. Vital Signs: 12/18 20:54 BP 127 / 74; Pulse 94; Resp 20; Temp 98.2; Pulse Ox 95% ; Weight 77.11 kg; Height 5 ft. 1 in. (154.94 cm); 23:00 BP 132 / 68; Pulse 89; Resp 18; Pulse Ox 98% on R/A; 12/19 00:30 BP 124 / 72; Pulse 86; Resp 18; Pulse Ox 99% on R/A; 12/18 20:54 Body Mass Index 32.12 (77.11 kg, 154.94 cm) ED Course: 12/18 20:47 Patient arrived in ED. mw2 20:50 Triage completed. 20:54 Patient has correct armband on for positive identification. Bed in low position. Call light in reach. Side rails up X 1. clinical research monitor on. Pulse ox on. NIBP on. 20:54 Arm band placed on right wrist. 21:02 Lavell Card NP is PHCP. pm1 21:02 Guru Moe MD is Attending Physician. pm1 21:05 EKG done, by ED staff, reviewed by Guru Moe MD. Inserted saline lock: 20 gauge in ds4 left forearm, using aseptic technique. Blood collected. 21:10 Jasmyne Pastor, RN is Primary Nurse. 21:53 XRAY Chest (1 view) In Process Unspecified. EDIN 12/19 00:57 No provider procedures requiring assistance completed. IV discontinued, intact, bleeding controlled, No redness/swelling at site. Administered Medications: 12/18 21:28 Drug: SOLU-Medrol 125 mg Route: IVP; Site: right forearm; 12/19 00:03 Follow up: Response: No adverse reaction 12/18 21:28 Drug: Albuterol - atroVENT (3:1) (2.5 mg - 0.5 mg) 3 ml Route: Nebulizer; 12/19 00:02 Follow up: Response: No adverse reaction Outcome: 00:45 Discharge ordered by . pm1 00:57 Discharged to home ambulatory. 00:57 Condition: stable 00:57 Discharge instructions given to patient, Instructed on discharge instructions, follow up and referral plans. no drinking with medication, no driving heavy equipment, medication usage, POC Demonstrated understanding of instructions, follow-up care, medications, POC Prescriptions given X 4. 00:57 Patient left the ED. Signatures: Dispatcher [employer] EDIN Ed Pulido ds4 Lavell Card NP PRODUCT DEVELOPMENT CONSULTANT pm1 Jasmyne Pastor, [place] RN Maciej Campbell mw2
--- NOTE | 2020-12-19 00:47 | EDPHYS ---
Physician Documentation [facility] Name: Afua Cunningham Age: 59 yrs Sex: Female : 1960 Arrival Date: 12/18/2020 Time: 20:47 Bed 13 Private MD: ED Physician Guru Moe HPI: 12/18 22:09 This 59 yrs old Black Female presents to ER via EMS with complaints of Shortness Of pm1 Breath. 22:09 The patient has shortness of breath at rest. Onset: The symptoms/episode began/occurred pm1 2 day(s) ago. Duration: The symptoms are continuous. The patient's shortness of breath is aggravated by Lack of medications for her asthma and chronic bronchitis. Associated signs and symptoms: Pertinent positives: non-productive cough, Pertinent negatives: chest pain, fever. Severity of symptoms: in the emergency department the symptoms are worse. The patient has experienced similar episodes in the past, multiple times. The patient has not recently seen a physician. Patient complaining of burning with urination for the past few days. No abdominal pain, fever, or flank pain. Historical: - Allergies: 20:51 No Known Allergies; - Home Meds: 20:52 amlodipine 10 mg tab 1 tab once daily [Active]; carvedilol 6.25 mg Oral tab [Active]; Clonazepam Oral [Active]; losartan 100 mg Oral tab 1 tab once daily [Active]; pantoprazole 20 mg Oral chew [Active]; trazodone 100 mg Oral tab [Active]; venlafaxine Oral [Active]; - PMHx: 20:51 Anxiety; Asthma; Back pain; Depression; fx in middle of back; GERD; Hypertension; UTI; - PSHx: 20:51 Tubal ligation; - Immunization history:: Adult Immunizations not up to date. - Social history:: Smoking status: Patient reports the use of cigarette tobacco products, smokes one-half pack cigarettes per day. ROS: 22:09 Constitutional: Negative for fever, chills, and weight loss, Cardiovascular: Negative pm1 for chest pain, palpitations, and edema. 22:09 Abdomen/GI: Negative for abdominal pain, nausea, vomiting, diarrhea, and constipation, Back: Negative for injury and pain. 22:09 MS/Extremity: Negative for injury and deformity, Skin: Negative for injury, rash, and discoloration, Neuro: Negative for headache, weakness, numbness, tingling, and seizure. 22:09 Respiratory: Positive for cough, shortness of breath, wheezing, Negative for sputum production. 22:09 : Positive for burning with urination. Exam: 22:09 Constitutional: This is a well developed, well nourished patient who is awake, alert, pm1 and in no acute distress. Head/Face: Normocephalic, atraumatic. 22:09 Skin: Warm, dry with normal turgor. Normal color with no rashes, no lesions, and no evidence of cellulitis. MS/ Extremity: Pulses equal, no cyanosis. Neurovascular intact. Full, normal range of motion. 22:09 Cardiovascular: Exam negative for acute changes, Rate: normal, Rhythm: regular, Pulses: no pulse deficits are appreciated. 22:09 Respiratory: the patient does not display signs of respiratory distress, Respirations: normal, Breath sounds: wheezing: expiratory that is mild, is heard diffusely. 22:09 Abdomen/GI: Inspection: obese Palpation: abdomen is soft and non-tender, in all quadrants. 22:09 Neuro: Exam negative for acute changes, Orientation: is normal, Mentation: is normal, Motor: is normal, moves all fours. Vital Signs: 20:54 BP 127 / 74; Pulse 94; Resp 20; Temp 98.2; Pulse Ox 95% ; Weight 77.11 kg; Height 5 ft. wh 1 in. (154.94 cm); 23:00 BP 132 / 68; Pulse 89; Resp 18; Pulse Ox 98% on R/A; 12/19 00:30 BP 124 / 72; Pulse 86; Resp 18; Pulse Ox 99% on R/A; 12/18 20:54 Body Mass Index 32.12 (77.11 kg, 154.94 cm) wh MDM: 12/18 21:09 Patient medically screened. pm1 22:09 Data reviewed: vital signs. Data interpreted: Pulse oximetry: on room air is 95 %. pm1 Interpretation: normal. 12/19 00:44 Counseling: I had a detailed discussion with the patient and/or guardian regarding: the pm1 historical points, exam findings, and any diagnostic results supporting the discharge/admit diagnosis, lab results, radiology results, the need for outpatient follow up, to return to the emergency department if symptoms worsen or persist or if there are any questions or concerns that arise at home. 00:53 ED course: Patient complaining of left hip pain and would like a prescription for pm1 tylenol #3. 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 12/18 21:09 Order name: Basic Metabolic Panel pm1 12/18 21:09 Order name: CBC with Diff 12/18 21:09 Order name: LFT's 12/18 21:09 Order name: Magnesium pm12/18 21:09 Order name: PT-INR pm12/18 21:09 Order name: Troponin (emerg Dept Use Only) pm12/18 21:09 Order name: COVID-19 pm12/18 21:09 Order name: Strep; Complete Time: 22:35 pm12/18 21:09 Order name: Urine Microscopic Only; Complete Time: 00:44 pm12/18 21:10 Order name: Basic Metabolic Panel; Complete Time: 22:35 EDMS 12/18 21:10 Order name: CBC with Automated Diff; Complete Time: 22:35 EDMS 12/18 21:10 Order name: Liver (Hepatic) Function; Complete Time: 22:35 EDMS 12/18 21:10 Order name: Magnesium; Complete Time: 22:35 EDMS 12/18 21:09 Order name: XRAY Chest (1 view) 12/18 21:09 Order name: EKG; Complete Time: 21:10 pm12/18 21:09 Order name: Cardiac monitoring; Complete Time: 21:16 pm12/18 21:09 Order name: EKG - Nurse/Tech; Complete Time: 21:16 pm12/18 21:09 Order name: IV Saline Lock; Complete Time: 21:16 pm12/18 21:09 Order name: Labs collected and sent; Complete Time: 21:16 pm12/18 21:09 Order name: O2 Per Protocol; Complete Time: 21:16 pm12/18 21:09 Order name: O2 Sat Monitoring; Complete Time: 21:16 pm12/18 21:10 Order name: Protime (+INR); Complete Time: 22:35 EDMS 12/18 21:10 Order name: Troponin (Emerg Dept Use Only); Complete Time: 22:35 EDMS 12/18 22:27 Order name: Throat Culture [facility] 12/18 23:02 Order name: COVID-19/FLU A+B; Complete Time: 23:27 [facility] 12/19 00:09 Order name: Urine Dipstick--Ancillary (enter results); Complete Time: 00:44 mw2 12/18 21:09 Order name: Urine Dipstick-Ancillary (obtain specimen); Complete Time: 00:14 pm1 Administered Medications: 12/18 21:28 Drug: SOLU-Medrol 125 mg Route: IVP; Site: right forearm; 12/19 00:03 Follow up: Response: No adverse reaction 12/18 21:28 Drug: Albuterol - atroVENT (3:1) (2.5 mg - 0.5 mg) 3 ml Route: Nebulizer; 12/19 00:02 Follow up: Response: No adverse reaction Disposition: 04:06 Co-signature as Attending Physician, Guru Moe MD did not see or evaluate patient. ps1 Signature for administrative purposes. . Disposition: 12/19/20 00:45 Discharged to Home. Impression: Asthma. - Condition is Stable. - Discharge Instructions: Asthma, Adult, Asthma Attack Prevention, Adult. - Prescriptions for Zithromax Z- Joe 250 mg Oral Tablet - take 1 tablet by ORAL route as directed for 5 days Day 1 - take two (2) tablets one time. Day 2, 3, 4 , 5 take one (1) tablet once daily.; 6 tablet. Medrol (Joe) 4 mg Oral Tablets, Dose Pack - take 1 tablet by ORAL route as directed - follow package instructions; 1 packet. Albuterol Sulfate 90 mcg/actuation - inhale 1-2 puff by INHALATION route every 4-6 hours; 1 Inhaler. Tylenol- Codeine #3 300-30 mg Oral Tablet - take 2 tablets by ORAL route every 6 hours As needed; 12 tablet. - Medication Reconciliation Form, Thank You Letter, Antibiotic Education, Prescription Opioid Use form. - Follow up: Emergency Department; When: As needed; Reason: Worsening of condition. Follow up: Private Physician; When: 2 - 3 days; Reason: Recheck today's complaints, Continuance of care, Re-evaluation by your physician. - Problem is new. - Symptoms have improved. Signatures: Dispatcher [employer] [facility] Lavell Card, DRESSED POULTRY GRADER DRESSED POULTRY GRADER pm1 Jasmyne Pastor, [place] RN Guru Moe MD MD ps1 Corrections: (The following items were deleted from the chart) 12/18 22:12 21:10 CORONAVIRUS ordered. [facility] 22:12 21:10 Influenza Screen (A \T\ B)+[id number].LAB.BRZ ordered. [facility] 12/19 00:57 00:45 12/19/2020 00:45 Discharged to Home. Impression: Asthma. Condition is Stable. Forms are Medication Reconciliation Form, Thank You Letter, Antibiotic Education, Prescription Opioid Use. Follow up: Emergency Department; When: As needed; Reason: Worsening of condition. Follow up: Private Physician; When: 2 - 3 days; Reason: Recheck today's complaints, Continuance of care, Re-evaluation by your physician. Problem is new. Symptoms have improved. pm1
[2020-12-19 01:02] VITALS: TEMP 98.2
[2020-12-19 01:04] VITALS: BP 124/72; O2SAT 99
--- NOTE | 2020-12-19 06:51 | RAD REPORT ---
EXAM DESCRIPTION: RAD - Chest Single View - 12/18/2020 9:46 pm CLINICAL HISTORY: SOB, asthma, bronchitis COMPARISON: Portable November 21, 2020 TECHNIQUE: AP portable chest image was obtained 12/18/2020 9:46 pm . FINDINGS: No focal lung parenchymal process. No failure or volume overload. Interstitial pattern mat ches comparison. Heart and vasculature are normal. No measurable pleural effusion and no pneumothorax . No acute bony abnormality seen. No acute aortic findings suspected. IMPRESSION: No acute cardiopulmonary process. No significant change from comparison study.
--- NOTE | 2020-12-20 06:31 | EKG ---
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
== END 2020-12-19 00:57 | disposition home or self-care (01) ==
LOC: ER 20:44
DX: J45.909 Unspecified asthma, uncomplicated (principal); Z20.822 Contact with and (suspected) exposure to COVID-19; I10 Essential (primary) hypertension; F41.8 Other specified anxiety disorders; F17.210 Nicotine dependence, cigarettes, uncomplicated
CPT/HCPCS: 93005; 87070; 85025; 80048; 36415; 83735; 85610; 80076; 87081; 84484; 0240U; 71045; J2930; 81003; 81015; 96374; 99285

== ENCOUNTER 2021-01-08 19:26 | Emergency (ER) | payer MEDICARE, OTHER ==
[2021-01-09 00:46] LABS: Absolute Lymphocytes (CBC) 2.2 K/uL (0.7-4.9); Basophils % 1.2 % (0-1.3); Hematocrit 37.8 % (36.0-45.0); Lymphocytes % 27.7 % (15.3-44.8); MPV 7.3 fL (7.6-11.3); RBC Red Blood Cell Count 4.03 M/uL (3.86-4.86)
[2021-01-09 00:47] LABS: Protime INR 0.97
[2021-01-09] MEDS ORDERED: PROMETH/COD 6.25/10MG SYRUP 5ML ONE (00:51)
[2021-01-09] MEDS ORDERED: LEVALBUTEROL 1.25 MG/3 ML NEB ONE (00:51)
[2021-01-09 01:00] LABS: ALT/SGPT 21 U/L (12-78); AST/SGOT 18 U/L (15-37); Alkaline Phosphatase 101 U/L (45-117); BUN Blood Urea Nitrogen 12 mg/dL (7-18); Bicarbonate 27 mmol/L (21-32); Bilirubin Direct < 0.1 mg/dL (0-0.2); Bilirubin Total 0.2 mg/dL (0.2-1.0); Glucose Level 85 mg/dL (74-106); Magnesium 1.9 mg/dL (1.8-2.4); NT PRO-BNP 133 pg/mL (<125); Potassium 3.8 mmol/L (3.5-5.1); Protein, Total 6.9 g/dL (6.4-8.2); Sodium Level 143 mmol/L (136-145); Troponin (Emerg Dept Use Only) < 0.02 ng/mL (0.0-0.045)
[2021-01-09] MEDS ORDERED: CEFTRIAXONE/SWI 1gm 1 GM/10 ML SYR ONE (04:09)
[2021-01-09] MEDS ORDERED: AZITHROMYCIN 250 MG TAB ONE (04:09)
--- NOTE | 2021-01-09 04:21 | EDPHYS ---
Physician Documentation [facility] Name: Afua Cunningham Age: 60 yrs Sex: Female : 1960 Arrival Date: 01/08/2021 Time: 19:36 Bed 4 Private MD: ED Physician Timothy Wild HPI: 01/09 04:46 This 60 yrs old Black Female presents to ER via EMS with complaints of Shortness Of kdr Breath. 04:46 The patient has shortness of breath with light activity. Onset: The symptoms/episode kdr began/occurred gradually, 1 week(s) ago. Duration: The symptoms are intermittent, with no pattern. The patient's shortness of breath is aggravated by coughing, exertion, light activity. Associated signs and symptoms: Pertinent positives: productive cough, Pertinent negatives: dizziness, fever, hemoptysis, nausea, numbness in extremities, visual changes, vomiting. Severity of symptoms: At their worst the symptoms were mild moderate just prior to arrival, in the emergency department the symptoms are unchanged. The patient has not experienced similar symptoms in the past. The patient has been recently seen by a physician: the patient's primary care provider, with similar presenting complaints, was given a prescription for antibiotics. Historical: - Allergies: 01/08 19:39 No Known Allergies; em - PMHx: 19:38 Hypertension; fx in middle of back; Depression; Asthma; Back pain; Anxiety; GERD; UTI; em - PSHx: 19:38 Tubal ligation; hand; em - Immunization history:: Adult Immunizations. - Social history:: Smoking status: Patient reports the use of cigarette tobacco products, smokes one-half pack cigarettes per day. ROS: 01/09 04:46 Constitutional: Negative for fever, chills, and weight loss, Eyes: Negative for injury, kdr pain, redness, and discharge, ENT: Negative for injury, pain, and discharge, Neck: Negative for injury, pain, and swelling, Cardiovascular: Negative for chest pain, palpitations, and edema, Back: Negative for injury and pain, : Negative for injury, bleeding, discharge, and swelling, MS/Extremity: Negative for injury and deformity, Skin: Negative for injury, rash, and discoloration, Neuro: Negative for headache, weakness, numbness, tingling, and seizure activity. Psych: Negative for depression, anxiety, suicide ideation, homicidal ideation, and hallucinations, Allergy/Immunology: Negative for hives, rash, and allergies, Endocrine: Negative for neck swelling, polydipsia, polyuria, polyphagia, and marked weight changes, Hematologic/Lymphatic: Negative for swollen nodes, abnormal bleeding, and unusual bruising. Respiratory: Positive for cough, with clear sputum, dyspnea on exertion, shortness of breath, on exertion. Negative for hemoptysis, orthopnea, pleurisy. Abdomen/GI: Positive for abdominal pain, of the right upper quadrant and left upper quadrant, with coughing. Exam: 04:46 Constitutional: This is a well developed, well nourished patient who is awake, alert, kdr and in no acute distress. Head/Face: Normocephalic, atraumatic. Eyes: Pupils equal round and reactive to light, extra-ocular motions intact. Lids and lashes normal. Conjunctiva and sclera are non-icteric and not injected. Cornea within normal limits. Periorbital areas with no swelling, redness, or edema. Neck: Trachea midline, no thyromegaly or masses palpated, and no cervical lymphadenopathy. Supple, full range of motion without nuchal rigidity, or vertebral point tenderness. No Meningismus. Chest/axilla: Normal chest wall appearance and motion. Nontender with no deformity. No lesions are appreciated. Cardiovascular: Regular rate and rhythm with a normal S1 and S2. No gallops, murmurs, or rubs. Normal PMI, no JVD. No pulse deficits. Back: No spinal tenderness. No costovertebral tenderness. Full range of motion. Skin: Warm, dry with normal turgor. Normal color with no rashes, no lesions, and no evidence of cellulitis. MS/ Extremity: Pulses equal, no cyanosis. Neurovascular intact. Full, normal range of motion. Neuro: Awake and alert, GCS 15, oriented to person, place, time, and situation. Cranial nerves II-XII grossly intact. Motor strength 5/5 in all extremities. Sensory grossly intact. Cerebellar exam normal. Normal gait. Psych: Awake, alert, with orientation to person, place and time. Behavior, mood, and affect are within normal limits. 04:46 Respiratory: the patient does not display signs of respiratory distress, Respirations: normal, Breath sounds: decreased breath sounds, that are mild, are scattered, rhonchi, are not appreciated, stridor, is not appreciated, wheezing: is not appreciated. 06:32 ECG was reviewed by the Attending Physician. kdr Vital Signs: 01/08 19:36 BP 170 / 92; Pulse 100; Resp 18; Temp 98.7(O); Pulse Ox 99% on R/A; Weight 83.01 kg; em Height 5 ft. 1 in. (154.94 cm); Pain 9/10; 01/09 01:55 BP 144 / 77; Pulse 98; Resp 18; Pulse Ox 99% ; ea 03:36 BP 123 / 87; Pulse 95; Resp 18; Pulse Ox 99% on R/A; ea 04:39 BP 143 / 72; Pulse 80; Resp 18; Pulse Ox 98% on R/A; ea 01/08 19:36 Body Mass Index 34.58 (83.01 kg, 154.94 cm) em MDM: 04:20 Patient medically screened. kdr 04:46 Data reviewed: vital signs, nurses notes, lab test result(s), EKG, radiologic studies. kdr Counseling: I had a detailed discussion with the patient and/or guardian regarding: the historical points, exam findings, and any diagnostic results supporting the discharge/admit diagnosis, lab results, radiology results, the need for outpatient follow up. 01/09 00:07 Order name: Basic Metabolic Panel; Complete Time: 03:39 kdr 01/09 00:07 Order name: CBC with Diff; Complete Time: 03:39 kdr 01/09 00:07 Order name: LFT's; Complete Time: 03:39 kdr 01/09 00:07 Order name: Magnesium; Complete Time: 03:39 kdr 01/09 00:07 Order name: NT PRO-BNP; Complete Time: 03:39 kdr 01/09 00:07 Order name: PT-INR; Complete Time: 03:39 kdr 01/09 00:07 Order name: Troponin (emerg Dept Use Only); Complete Time: 03:39 kdr 01/09 00:07 Order name: XRAY Chest (1 view) kdr 01/09 00:22 Order name: COVID-19 : Document "Date of Symptom Onset" if Symptomatic. kdr 01/09 01:31 Order name: SARS-COV-2 RT PCR; Complete Time: 03:39 EDMS 01/09 00:07 Order name: EKG; Complete Time: 00:08 kdr 01/09 00:07 Order name: Cardiac monitoring; Complete Time: 00:30 kdr 01/09 00:07 Order name: EKG - Nurse/Tech; Complete Time: 00:30 kdr 01/09 00:07 Order name: IV Saline Lock; Complete Time: 00:30 kdr 01/09 00:07 Order name: Labs collected and sent; Complete Time: 00:30 kdr 01/09 00:07 Order name: O2 Per Protocol; Complete Time: 00:30 kdr 01/09 00:07 Order name: O2 Sat Monitoring; Complete Time: 00:30 kdr EC:32 Rate is 89 beats/min. Rhythm is regular. QRS [place] is Normal. MS interval is normal. QRS kdr interval is normal. QT interval is normal. Clinical impression: NSR w/ Non-specific ST/T Changes. Administered Medications: 00:40 Drug: Phenergan-Codeine Liquid (6.25mg - 10mg / 5mL) 10 ml Route: PO; ea 01:54 Follow up: Response: No adverse reaction ea 00:40 Drug: Xopenex (3) 1.25 mg Route: Inhalation; ea 01:54 Follow up: Response: No adverse reaction ea 04:15 Drug: Zithromax 500 mg Route: PO; ea 04:39 Follow up: Response: No adverse reaction ea 04:16 Drug: Rocephin 1 grams Route: IV; Rate: calculated rate; Site: right antecubital; ea 04:39 Follow up: IV Status: Completed infusion ea Disposition: 01/09/21 04:20 Discharged to Home. Impression: Bronchitis, not specified as acute or chronic, Pneumonia, unspecified organism. - Condition is Stable. - Discharge Instructions: Community-Acquired Pneumonia, Adult, Acute Bronchitis, [id number], Upper Respiratory Infection, Adult, [id number]. - Prescriptions for Zithromax Z- Joe 250 mg Oral Tablet - take 1 tablet by ORAL route once daily for 4 days; 4 tablet. Promethazine VC- Codeine 6.25-5-10 mg/5 mL Oral syrup - take 5 milliliter by ORAL route every 4-6 hours As needed as needed, not to exceed 30 mL in 24 hours; 100 milliliter. Ibuprofen 600 mg Oral Tablet - take 1 tablet by ORAL route every 6 hours As needed take with food; 30 tablet. Tessalon Perles 100 mg Oral Capsule - take 1 capsule by ORAL route every 8 hours As needed; 15 capsule. - Medication Reconciliation Form, Thank You Letter, Antibiotic Education form. - Follow up: Private Physician; When: 2 - 3 days; Reason: If symptoms return, Further diagnostic work-up, Recheck today's complaints, Continuance of care, Re-evaluation by your physician. - Problem is an ongoing problem. - Symptoms have improved. Signatures: Dispatcher [employer] [facility] Timothy Wild MD MD [facility] Andrew Plaza RN RN em Taya Goldberg RN RN ea Corrections: (The following items were deleted from the chart) 00:52 00:50 CORONAVIRUS ordered. [facility] 04:40 04:20 01/09/2021 04:20 Discharged to Home. Impression: Bronchitis, not specified as ea acute or chronic; Pneumonia, unspecified organism. Condition is Stable. Forms are Medication Reconciliation Form, Thank You Letter, Antibiotic Education, Prescription Opioid Use. Follow up: Private Physician; When: 2 - 3 days; Reason: If symptoms return, Further diagnostic work-up, Recheck today's complaints, Continuance of care, Re-evaluation by your physician. Problem is an ongoing problem. Symptoms have improved. kdr
--- NOTE | 2021-01-09 04:21 | ER ---
Nurse's Notes [facility] Name: Afua Cunningham Age: 60 yrs Sex: Female : 1960 Arrival Date: 01/08/2021 Time: 19:36 Bed 4 Private MD: Diagnosis: Bronchitis, not specified as acute or chronic;Pneumonia, unspecified organism Presentation: 01/08 19:36 Chief complaint: Patient states: shortness of breath for 1 week, reports hx of asthma, em denies fever. Coronavirus screen: Client denies travel out of the [place] in the last 14 days. Ebola Screen: Patient negative for fever greater than or equal to 101.5 degrees Fahrenheit, and additional compatible Ebola Virus Disease symptoms Patient denies exposure to infectious person. Patient denies travel to an Ebola-affected area in the 21 days before illness onset. No symptoms or risks identified at this time. Initial Sepsis Screen: Does the patient meet any 2 criteria? HR > 90 bpm. No. Patient's initial sepsis screen is negative. Does the patient have a suspected source of infection? No. Patient's initial sepsis screen is negative. Risk Assessment: Do you want to hurt yourself or someone else? Patient reports no desire to harm self or others. Onset of symptoms was January 08, 2021. 19:36 Method Of Arrival: EMS: [facility] em 19:36 Acuity: ASHA 3 em Triage Assessment: 23:53 General: Appears uncomfortable. Respiratory: Reports cough that is persistent Onset: ea The symptoms/episode began/occurred yesterday, the patient has mild shortness of breath. Historical: - Allergies: 19:39 No Known Allergies; em - PMHx: 19:38 Hypertension; fx in middle of back; Depression; Asthma; Back pain; Anxiety; GERD; UTI; em - PSHx: 19:38 Tubal ligation; hand; em - Immunization history:: Adult Immunizations. - Social history:: Smoking status: Patient reports the use of cigarette tobacco products, smokes one-half pack cigarettes per day. Screenin:52 Abuse screen: Denies threats or abuse. Nutritional screening: No deficits noted. ea Tuberculosis screening: No symptoms or risk factors identified. Fall Risk None identified. Assessment: 23:51 General: Appears uncomfortable, Behavior is appropriate for age. Pain: Complains of ea pain in back and abdomen Quality of pain is described as aching, Aggravated by coughing. Neuro: Level of Consciousness is awake, alert, obeys commands, Oriented to person, place, time. Cardiovascular: Patient's skin is warm and dry. Respiratory: Airway is patent Respiratory effort is even, unlabored, Respiratory pattern is regular, symmetrical. Derm: Skin is pink, warm \T\ dry. 01/09 00:00 Reassessment: Patient and/or family updated on plan of care and expected duration. Pain ea level reassessed. Patient is alert, oriented x 3, equal unlabored respirations, skin warm/dry/pink. 03:00 Reassessment: Patient and/or family updated on plan of care and expected duration. Pain ea level reassessed. Pt resting with eyes closed, respirations even and unlabored, chest expansions even and symmetrical. 04:37 Reassessment: Patient and/or family updated on plan of care and expected duration. Pain ea level reassessed. Patient is alert, oriented x 3, equal unlabored respirations, skin warm/dry/pink. Discharge instruction given to patient, verbalized the understanding of instruction. Pt left ED ambulatory accompanied by family pt tolerating well. Vital Signs: 01/08 19:36 BP 170 / 92; Pulse 100; Resp 18; Temp 98.7(O); Pulse Ox 99% on R/A; Weight 83.01 kg; em Height 5 ft. 1 in. (154.94 cm); Pain 9/10; 01/09 01:55 BP 144 / 77; Pulse 98; Resp 18; Pulse Ox 99% ; ea 03:36 BP 123 / 87; Pulse 95; Resp 18; Pulse Ox 99% on R/A; ea 04:39 BP 143 / 72; Pulse 80; Resp 18; Pulse Ox 98% on R/A; ea 01/08 19:36 Body Mass Index 34.58 (83.01 kg, 154.94 cm) em ED Course: 01/08 19:36 Patient arrived in ED. em 19:38 Triage completed. em 19:39 Arm band placed on. em 23:51 Taya Goldberg, RN is Primary Nurse. ea 23:53 Patient has correct armband on for positive identification. Bed in low position. Call ea light in reach. 01/09 00:06 Timothy Wild MD is Attending Physician. kdr 00:30 Inserted saline lock: 20 gauge in right antecubital area, using aseptic technique. ea Blood collected. 00:38 XRAY Chest (1 view) In Process Unspecified. EDMS 04:38 No provider procedures requiring assistance completed. IV discontinued, intact, ea bleeding controlled, No redness/swelling at site. Pressure dressing applied. Administered Medications: 00:40 Drug: Phenergan-Codeine Liquid (6.25mg - 10mg / 5mL) 10 ml Route: PO; ea 01:54 Follow up: Response: No adverse reaction ea 00:40 Drug: Xopenex (3) 1.25 mg Route: Inhalation; ea 01:54 Follow up: Response: No adverse reaction ea 04:15 Drug: Zithromax 500 mg Route: PO; ea 04:39 Follow up: Response: No adverse reaction ea 04:16 Drug: Rocephin 1 grams Route: IV; Rate: calculated rate; Site: right antecubital; ea 04:39 Follow up: IV Status: Completed infusion ea Outcome: 04:20 Discharge ordered by . kdr 04:38 Discharged to home ambulatory, with family. ea 04:38 Condition: stable 04:38 Discharge instructions given to patient, Instructed on discharge instructions, follow up and referral plans. medication usage, Demonstrated understanding of instructions, follow-up care, medications, Prescriptions given X 4. 04:40 Patient left the ED. ea Signatures: Dispatcher [employer] EDNC Timothy Wild MD MD kdr Munoz, Edgar, RN RN em Antunez, Elena, RN RN ea
[2021-01-09 04:45] VITALS: TEMP 98.7
[2021-01-09 04:48] VITALS: BP 143/72; O2SAT 98
--- NOTE | 2021-01-09 08:24 | RAD REPORT ---
EXAM DESCRIPTION: RAD - Chest Single View - 01/09/2021 12:39 am CLINICAL HISTORY: SOB COMPARISON: Portable December 18 TECHNIQUE: AP portable chest image was obtained 01/09/2021 12:39 am . FINDINGS: No focal lung parenchymal process. Interstitial pattern matches comparison. Heart size and vasculature are normal and match prior imaging. No measurable pleural effusion and no pneumothorax. No acute bony abnormality seen. No acute aortic findings suspected. IMPRESSION: No acute cardiopulmonary process. No significant change from comparison study.
--- NOTE | 2021-01-09 09:59 | EKG ---
Test Date: 2021-01-09 Test Time: 00:19:59 Pilot Teacher: BIENVENIDO MEASUREMENT RESULTS: Intervals: Rate: 89 SC: 146 QRSD: 86 QT: 394 QTc: 479 [place]: P: 60 SC: 146 QRS: -3 T: 71 INTERPRETIVE STATEMENTS: Normal sinus rhythm Minimal voltage criteria for LVH, may be normal variant Septal infarct, age undetermined Abnormal ECG Compared to ECG 12/18/2020 20:48:23 Left ventricular hypertrophy now present Myocardial infarct finding still present Electronically Signed On 01-09-21 09:59:24 PLATFORM STAPLER by Sj Guzman
== END 2021-01-09 04:40 | disposition home or self-care (01) ==
LOC: ER 19:26
DX: J18.9 Pneumonia, unspecified organism (principal); J40 Bronchitis, not specified as acute or chronic; Z20.822 Contact with and (suspected) exposure to COVID-19; F17.210 Nicotine dependence, cigarettes, uncomplicated; I10 Essential (primary) hypertension; F32.9 Major depressive disorder, single episode, unspecified; F41.9 Anxiety disorder, unspecified; K21.9 Gastro-esophageal reflux disease without esophagitis
CPT/HCPCS: 96365; 93005; 85025; 80048; 36415; 83735; 85610; 80076; 84484; 83880; 71045; 99284; U0003; J0696

== ENCOUNTER 2021-01-17 07:48 | Emergency (ER) | payer MEDICARE, OTHER ==
--- OUTSIDE RECORDS SUMMARY | 2021-01-17 07:51 | XMS REPORT | Continuity of Care Document ---
:1960 Author Organization [facility] t Address [address] [place] [address] Care Team Providers Name Role Phone Rimma Cabrales Attending Clinician Isaac WHITE Attending Clinician Ary RN, T [...] ID 2020-09-28 2020-09-28 Refill BRANDEE Lowry [id number] 00:00:00 00:00:00 [facility] [id number] Surgical [id number] Specialti [phone] es [address] [place] 2020-07-18 2020-07-18 Emergency BRANDEE Gray [id number] 11:27:00 12:25:00 Cristobal [place] [id number] [place] 4.2.7.2.686 [place] [id number] 084 2020-07-14 2020-07-14 Emergency Isaac [facility] [id number] 10:35:00 11:01:00 Cristobal Desir [id number] [place] 4.2.7.2.686 [place] [id number] [id number] 2020-07-06 2020-07-06 Letter KARYN Mcallister [id number] 00:00:00 00:00:00 (Out) Johnna [facility] [id number] [facility] 4.2.7.2.68 [id number] [id number] 2020-07-03 2020-07-03 Emergency Janet Love [facility] [id number] 14:13:00 17:14:00 Sindy Desir [id number] [place] 4.2.7.2.686 [place] [id number] 084 2020-06-18 2020-06-18 Orders Doctor KARYN [id number] 00:00:00 00:00:00 Only Unassigned, BEATRIZ [id number] [place] 4.2.7.2.686 [id number] [id number] 2020-06-11 2020-06-11 Emergency GrayCristobal [facility] 1.2.840. 114 [id number] 07:22:31 07:47:00 Erasto Graynicole Desir [id number] [place] 4.2.7.2.686 [place] [id number] [id number] 2020-06-11 2020-06-11 Orders Doctor KARYN [id number] 00:00:00 00:00:00 Only UnassignedBEATRIZ [id number] [place] [facility] 4.2.7.2.686 [id number] [id number] 2020-06-03 2020-06-03 Emergency Desi [facility] [id number] 15:21:35 18:43:00 Kellie Desir [id number] [place] 4.2.7.2.686 [place] [id number] 084 2020-06-03 2020-06-03 Orders Doctor KARYN [id number] 00:00:00 00:00:00 Only Unassigned, BEATRIZ [id number] [place] [facility] [id number] [id number] 2020-05-31 2020-05-31 Telephone BRANDEE Lowry [id number] 00:00:00 00:00:00 [facility] [id number] Surgical [id number] Specialti [phone] [address] [place] 2020-05-18 2020-05-18 Office Essence HIHOLLY 1.2.840.114 [id number] 15:22:03 16:00:04 Visit [facility] [id number] Surgical [id number] Specialti [phone] es 198 [place] Results This patient has no known results.
--- NOTE | 2021-01-17 08:27 | ER ---
Nurse's Notes [facility] Name: Afua Cunningham Age: 60 yrs Sex: Female : 1960 Arrival Date: 01/17/2021 Time: 07:50 Bed 20 Private MD: Alexis Keyes T Diagnosis: Synovial cyst of popliteal space [Lowry], left knee Presentation: 01/17 08:18 Chief complaint: Patient states: LLE POPLITEAL CYST. Coronavirus screen: At this time, bp the client does not indicate any symptoms associated with coronavirus-19. Ebola Screen: No symptoms or risks identified at this time. Initial Sepsis Screen: Does the patient meet any 2 criteria? No. Patient's initial sepsis screen is negative. Does the patient have a suspected source of infection? No. Patient's initial sepsis screen is negative. Risk Assessment: Do you want to hurt yourself or someone else? Patient reports no desire to harm self or others. Onset of symptoms is unknown. 08:18 Method Of Arrival: Ambulatory bp 08:18 Acuity: ASHA 3 bp Triage Assessment: 08:20 General: Appears in no apparent distress. uncomfortable, obese, Behavior is bp cooperative, appropriate for age, anxious. Pain: Complains of pain in posterior aspect of right knee. EENT: No deficits noted. Neuro: No deficits noted. Cardiovascular: No deficits noted. Respiratory: No deficits noted. GI: No signs and/or symptoms were reported involving the gastrointestinal system. : No signs and/or symptoms were reported regarding the genitourinary system. Derm: No deficits noted. Musculoskeletal: No deficits noted. Historical: - Allergies: 08:20 No Known Allergies; bp - Home Meds: 08:20 losartan 100 mg Oral tab 1 tab once daily [Active]; Effexor XR 150 mg Oral cp24 1 cap bp once daily [Active]; - PMHx: 08:20 Anxiety; Asthma; Back pain; Depression; fx in middle of back; GERD; Hypertension; UTI; bp - Immunization history:: Adult Immunizations unknown. - Social history:: Smoking status: unknown. - Family history:: not pertinent. - Hospitalizations: : No recent hospitalization is reported. Screenin:22 Abuse screen: Denies threats or abuse. Denies injuries from another. Nutritional bp screening: No deficits noted. Tuberculosis screening: No symptoms or risk factors identified. Fall Risk None identified. Assessment: 08:22 General: SEE TRIAGE NOTE. bp 09:09 Reassessment: PT D/C HOME AMBULATORY, DX WITH TAMRA KATHLEEN. bp Vital Signs: 08:18 BP 168 / 96; Pulse 95; Resp 17; Temp 98.3; Pulse Ox 97% ; Weight 83.01 kg; Height 5 ft. bp 1 in. (154.94 cm); 09:09 BP 154 / 92; Pulse 89; Resp 16; Temp 98.5; Pulse Ox 98% ; bp 08:18 Body Mass Index 34.58 (83.01 kg, 154.94 cm) bp ED Course: 07:50 Patient arrived in ED. ag5 07:50 Alexis Keyes MD is Private Physician. ag5 08:17 Sonny Murray MD is Attending Physician. rn 08:17 Mikael Ha, [place] is Primary Nurse. bp 08:19 Triage completed. bp 08:20 Arm band placed on. bp 08:24 Patient has correct armband on for positive identification. Placed in gown. Bed in low bp position. Call light in reach. Side rails up X2. 08:26 Alexis Keyes MD is Referral Physician. rn 09:10 No provider procedures requiring assistance completed. Patient did not have IV access bp during this emergency room visit. Administered Medications: 08:30 Drug: Tylenol #3 (300 mg-30 mg) 1 tablet Route: PO; bp 08:44 Follow up: Response: No adverse reaction bp Outcome: 08:26 Discharge ordered by MD. rn 09:10 Discharged to home ambulatory. bp 09:10 Condition: stable 09:10 Discharge instructions given to patient, Instructed on discharge instructions, follow up and referral plans. medication usage, Demonstrated understanding of instructions, follow-up care, medications, Prescriptions given X 2. 09:11 Patient left the ED. bp Signatures: Sonny Murray MD MD rn Mikael Ha, RN RN Smiley Rivera ag5 Corrections: (The following items were deleted from the chart) 08:22 08:18 83.01 kg; Height 5 ft. 1 in.; BMI: 34.5; bp bp
--- NOTE | 2021-01-17 08:27 | EDPHYS ---
Physician Documentation [facility] Name: Afua Cunningham Age: 60 yrs Sex: Female : 1960 Arrival Date: 01/17/2021 Time: 07:50 Bed 20 Private MD: Alexis Keyes T ED Physician Sonny Murray HPI: 01/17 08:22 This 60 yrs old Black Female presents to ER via Ambulatory with complaints of Cyst. rn 08:22 The patient presents with pain, that is chronic. The complaints affect the posterior rn aspect of left knee. Onset: The symptoms/episode began/occurred at an unknown time. Modifying factors: The symptoms are alleviated by remaining still, the symptoms are aggravated by movement, bending knee. Severity of symptoms: At their worst the symptoms were mild, in the emergency department the symptoms are unchanged. The patient has experienced similar episodes in the past, chronically. Reports has lowry's cyst, chronically, already seen Dr. Simons recently and had knee injection, reports last time given tylenol #3 and helped. No fever. No trauma. . Historical: - Allergies: 08:20 No Known Allergies; bp - Home Meds: 08:20 losartan 100 mg Oral tab 1 tab once daily [Active]; Effexor XR 150 mg Oral cp24 1 cap bp once daily [Active]; - PMHx: 08:20 Anxiety; Asthma; Back pain; Depression; fx in middle of back; GERD; Hypertension; UTI; bp - Immunization history:: Adult Immunizations unknown. - Social history:: Smoking status: unknown. - Family history:: not pertinent. - Hospitalizations: : No recent hospitalization is reported. ROS: 08:22 Constitutional: Negative for fever, chills, and weight loss, Cardiovascular: Negative rn for chest pain, palpitations, and edema, Respiratory: Negative for shortness of breath, cough, wheezing, and pleuritic chest pain, MS/Extremity: + left posterior knee pain, no calf pain or thigh pain Skin: Negative for injury, rash, and discoloration, Neuro: Negative for headache, weakness, numbness, tingling, and seizure. Exam: 08:22 Constitutional: This is a well developed, well nourished patient who is awake, alert, rn and in no acute distress. Cardiovascular: Regular rate and rhythm. No pulse deficits. MS/ Extremity: Pulses equal, no cyanosis. Neurovascular intact. Full, normal range of motion. Pain with extreme flexion of left knee, no palpable mass, no calf tenderness or skin changes. Vital Signs: 08:18 BP 168 / 96; Pulse 95; Resp 17; Temp 98.3; Pulse Ox 97% ; Weight 83.01 kg; Height 5 ft. bp 1 in. (154.94 cm); 09:09 BP 154 / 92; Pulse 89; Resp 16; Temp 98.5; Pulse Ox 98% ; bp 08:18 Body Mass Index 34.58 (83.01 kg, 154.94 cm) bp MDM: 08:17 Patient medically screened. rn 08:22 Differential diagnosis: arthritis, tendonitis, bakers cyst. Data reviewed: vital signs, rn nurses notes, old medical records, and as a result, I will discharge patient. Counseling: I had a detailed discussion with the patient and/or guardian regarding: the historical points, exam findings, and any diagnostic results supporting the discharge/admit diagnosis, the need for outpatient follow up, to return to the emergency department if symptoms worsen or persist or if there are any questions or concerns that arise at home. Special discussion: I discussed with the patient/guardian in detail that at this point there is no indication for admission to the hospital. It is understood, however, that if the symptoms persist or worsen the patient needs to return immediately for re-evaluation. Based on the history and exam findings, there is no indication for further emergent testing or inpatient evaluation. I discussed with the patient/guardian the need to see the orthopedic surgeon for further evaluation of the symptoms. Administered Medications: 08:30 Drug: Tylenol #3 (300 mg-30 mg) 1 tablet Route: PO; bp 08:44 Follow up: Response: No adverse reaction bp Disposition: 01/17/21 08:26 Discharged to Home. Impression: Synovial cyst of popliteal space [Lowry], left knee. - Condition is Stable. - Discharge Instructions: Lowry Cyst. - Prescriptions for Tylenol- Codeine #3 300-30 mg Oral Tablet - take 1 tablet by ORAL route every 6 hours As needed; 12 tablet. Medrol (Joe) 4 mg Oral Tablets, Dose Pack - take 1 tablet by ORAL route as directed - follow package instructions; 1 packet. - Medication Reconciliation Form, Thank You Letter, Antibiotic Education, Prescription Opioid Use form. - Follow up: Alexis Keyes MD; When: As needed; Reason: Recheck today's complaints, Re-evaluation by your physician. - Problem is chronic. - Symptoms are unchanged. Signatures: Sonny Murray MD MD rn Peltier, Brian, RN RN bp Corrections: (The following items were deleted from the chart) 09:11 08:26 01/17/2021 08:26 Discharged to Home. Impression: Synovial cyst of popliteal space bp [Lowry], left knee. Condition is Stable. Forms are Medication Reconciliation Form, Thank You Letter, Antibiotic Education, Prescription Opioid Use. Follow up: Alexis Keyes; When: As needed; Reason: Recheck today's complaints, Re-evaluation by your physician. Problem is chronic. Symptoms are unchanged. rn
[2021-01-17] MEDS ORDERED: CODEINE 30MG/APAP 300MG TAB ONE (08:57)
[2021-01-17 09:54] VITALS: BP 154/92; TEMP 98.5; O2SAT 98
== END 2021-01-17 09:11 | disposition home or self-care (01) ==
LOC: ER 07:48
DX: M71.22 Synovial cyst of popliteal space [Baker], left knee (principal); F41.9 Anxiety disorder, unspecified; J45.909 Unspecified asthma, uncomplicated; F32.9 Major depressive disorder, single episode, unspecified; K21.9 Gastro-esophageal reflux disease without esophagitis; I10 Essential (primary) hypertension
CPT/HCPCS: 99283

== ENCOUNTER 2021-03-22 10:16 | Emergency (ER) | payer OTHER ==
--- OUTSIDE RECORDS SUMMARY | 2021-03-22 10:19 | XMS REPORT | Continuity of Care Document ---
:[address] [facility] t Address [address] [place] [address] Care Team Providers Name Role Phone Vidal Williamson DO Attending Clinician Doctor Unassigned, Name Attending Clinician Unavailable Chidi WHITE, L Attending Clinician Desi NEWMAN S Attending Clinician Essence NEWMAN S Attending Clinician Isaac WHITE Attending Clinician Ary FIGUEROA, T Attending Clinician Unavailable Sindy Tavera Attending Clinician Problems This patient has no known problems. Allergies, Adverse Reactions, Alerts This patient has no known allergies or adverse reactions. Medications This patient has no known medications. Procedures This patient has no known procedures. Encounters Start End Encounter Admission Attending Care Care Encounter Source Date/Time Date/Time Type Type Clinicians Facility Department ID 2021-03-16 2021-03-16 Emergency Clay ILHOLLY 1.2.840.114 [id number] 08:30:00 10:05:00 Linda Desir 350.1.13.10 [place] 4.2.7.2.686 [place] [id number] 4 2021-03-16 2021-03-16 Orders Doctor KARYN 1.2.840.114 [id number] 00:00:00 00:00:00 Only Unassigned, BE[place]RI[place] 350.1.13.10 [place] [facility] 4.2.7.2.686 [id number] [id number] 2021-03-02 2021-03-02 Telephone [facility] 1.2.840.114 [id number] 00:00:00 00:00:00 [facility] 350.1.13.10 Surgical 4.2.7.2.686 Specialti [id number] [address] [place] 2021-02-17 2021-02-17 [facility] 1.2.840.114 [id number] 17:20:00 18:16:00 Linda Desir 350.1.13.10 [place] 4.2.7.2.686 [place] [id number] [id number] 2021-02-12 2021-02-12 [facility] [id number] 11:02:00 11:46:00 Kellie Desir 350.1.13.10 [place] 4.2.7.2.686 [place] [id number] [id number] 2020-09-28 2020-09-28 [facility] 1.2.840.114 [id number] 00:00:00 00:00:00 [facility] 350.1.13.10 Surgical 4.2.7.2.686 [place] [id number] [address] [place] 2020-07-18 2020-07-18 [facility] [id number] 11:27:00 12:25:00 Cristobal Desir 350.1.13.10 [place] 4.2.7.2.686 [place] [id number] 2020-07-14 2020-07-14 [facility] [id number] 10:35:00 11:01:00 Cristobal Desir 350.1.13.10 [place] 4.2.7.2.686 [place] [id number] [id number] 2020-07-06 2020-07-06 Letter KARYN Mcallister 1.2.840.114 [id number] 00:00:00 00:00:00 (Out) Johnna Jona [facility] 350.1.13.10 [facility] 4.2.7.2.686 [id number] [id number] 2020-07-03 2020-07-03 Emergency Janet Love [facility] 1.2.840.114 [id number] 14:13:00 17:14:00 Sindy Desir 350.1.13.10 [place] 4.2.7.2.686 [place] [id number] [id number] 2020-06-18 2020-06-18 Orders Doctor KARYN 1.2.840.114 [id number] 00:00:00 00:00:00 Only Unassigned, BEATRIZ 350.1.13.10 [place] [facility] 4.2.7.2.686 [id number] [id number] 2020-06-11 2020-06-11 Emergency Cristobal Gray [facility] 1.2.840. 114 [id number] 07:22:31 07:47:00 Cristobal Gray 350.1.13.10 [place] 4.2.7.2.686 [place] [id number] [id number] 2020-06-11 2020-06-11 Orders Doctor BOSS 1.2.840.114 [id number] 00:00:00 00:00:00 Only Unassigned, BEATRIZ 350.1.13.10 [place] [facility] 4.2.7.2.686 [id number] 2020-06-03 2020-06-03 Emergency Desi [facility] [id number] 15:21:35 18:43:00 Kellie Desir 350.1.13.10 [place] 4.2.7.2.686 [place] [id number] 084 2020-06-03 2020-06-03 Orders Doctor BOSS 1.2.840.114 [id number] 00:00:00 00:00:00 Only Unassigned, BEATRIZ 350.1.13.10 [place] [facility] 4.2.7.2.686 [id number] [id number] 2020-05-31 2020-05-31 Telephone Essence [place] [id number] 00:00:00 00:00:00 [facility] 350.1.13.10 Surgical 4.2.7.2.686 Special[place] [phone] [address] [place] 2020-05-18 2020-05-18 Office Essence [facility] 1.2.840.114 [id number] 15:22:03 16:00:04 Visit [facility] 350.1.13.10 Surgical 4.2.7.2.686 Specialti [phone] [address] [place] Results This patient has no known results.
--- NOTE | 2021-03-22 11:04 | EDPHYS ---
Physician Documentation [facility] Name: Afua Cunningham Age: 60 yrs Sex: Female : 1960 Arrival Date: 03/22/2021 Time: 10:18 Bed 13 Private MD: ED Physician Timothy Wild HPI: 03/22 11:20 This 60 yrs old Black Female presents to ER via Ambulatory with complaints of Back Pain.kb 11:20 The patient presents with pain that is acute. The symptoms are located in the low back. kb Onset: The symptoms/episode began/occurred yesterday. The pain does not radiate. Associated signs and symptoms: The patient has no apparent associated signs or symptoms. The problem was sustained when lifting. Modifying factors: The patient symptoms are alleviated by nothing, the patient symptoms are aggravated by any movement. Severity of symptoms: At their worst the symptoms were moderate, in the emergency department the symptoms are unchanged. The patient has not experienced similar symptoms in the past. The patient has not recently seen a physician. Pt states she has been helping her sister out by lifting her niece from the wheelchair to transfer from place to place and now she is having low back pain. . Historical: - Allergies: 10:22 No Known Allergies; tw2 - Home Meds: 10:22 Effexor XR 150 mg Oral cp24 1 cap once daily [Active]; losartan 100 mg Oral tab 1 tab tw2 once daily [Active]; - PMHx: 10:22 Anxiety; Asthma; Back pain; Depression; fx in middle of back; GERD; Hypertension; UTI; tw2 - Immunization history:: Adult Immunizations. - Social history:: Smoking status: . ROS: 11:19 Constitutional: Negative for fever, chills, and weight loss, Cardiovascular: Negative kb for chest pain, palpitations, and edema, Respiratory: Negative for shortness of breath, cough, wheezing, and pleuritic chest pain, Abdomen/GI: Negative for abdominal pain, nausea, vomiting, diarrhea, and constipation, : Negative for injury, bleeding, discharge, and swelling, MS/Extremity: Negative for injury and deformity, Skin: Negative for injury, rash, and discoloration, Neuro: Negative for headache, weakness, numbness, tingling, and seizure. 11:19 Back: Positive for pain at rest, pain with movement, of the lumbar area. Exam: 11:20 Constitutional: This is a well developed, well nourished patient who is awake, alert, kb and in no acute distress. Head/Face: Normocephalic, atraumatic. Cardiovascular: Regular rate and rhythm with a normal S1 and S2. No gallops, murmurs, or rubs. No pulse deficits. Respiratory: Respirations even and unlabored. No increased work of breathing, no retractions or nasal flaring. Skin: Warm, dry with normal turgor. Normal color. MS/ Extremity: Pulses equal, no cyanosis. Neurovascular intact. Full, normal range of motion. Neuro: Awake and alert, GCS 15, oriented to person, place, time, and situation. Moves all extremities. Normal gait. 11:20 Back: pain, that is mild, that is moderate, of the lumbar area, ROM is painful, normal spinal alignment noted, CVA tenderness, is absent, vertebral tenderness, is not appreciated. 11:22 Neuro: Exam negative for kb Vital Signs: 10:21 BP 181 / 97; Pulse 93; Resp 17; Temp 98.6(TE); Pulse Ox 98% on R/A; Weight 87.09 kg tw2 (R); Height 5 ft. 1 in. (154.94 cm); Pain 9/10; 10:39 BP 158 / 105; Pulse 89; Resp 18; Pulse Ox 98% on R/A; vg1 10:21 Body Mass Index 36.28 (87.09 kg, 154.94 cm) tw2 MDM: 10:29 Patient medically screened. kb 11:19 Data reviewed: vital signs, nurses notes. Data interpreted: Pulse oximetry: on room air kb is 98 %. Interpretation: normal. Counseling: I had a detailed discussion with the patient and/or guardian regarding: the historical points, exam findings, and any diagnostic results supporting the discharge/admit diagnosis, the need for outpatient follow up, a family practitioner, to return to the emergency department if symptoms worsen or persist or if there are any questions or concerns that arise at home. 11:22 ED course: EXHIBITION CARVER aware reviewed. kb Administered Medications: 10:53 Drug: [place] (HYDROcodone-acetaminophen) (7.5 mg-325 mg) 1 tabs Route: PO; vg1 11:08 Follow up: Response: No adverse reaction vg1 Disposition: 14:25 Co-signature as Attending Physician, Timothy Wild MD I agree with the assessment and kdr plan of care. Disposition: 03/22/21 11:04 Discharged to Home. Impression: Low back pain. - Condition is Stable. - Discharge Instructions: Musculoskeletal Pain, Back Pain, Adult, [id number]. - Prescriptions for Tylenol- Codeine #3 300-30 mg Oral Tablet - take 1 tablet by ORAL route every 4-6 hours As needed; 15 tablet. Cyclobenzaprine 10 mg Oral Tablet - take 1 tablet by ORAL route every 8 hours As needed; 21 tablet. - Medication Reconciliation Form, Thank You Letter, Antibiotic Education, Prescription Opioid Use form. - Follow up: Emergency Department; When: As needed; Reason: Worsening of condition. Follow up: Private Physician; When: 2 - 3 days; Reason: Recheck today's complaints, Continuance of care, Re-evaluation by your physician. Signatures: Misti Barragan, JULY-C DIRECTOR CRITICAL CARE-Timothy Lobo MD MD [facility] Lucy Klein, RN RN tw2 Amber Berger RN RN vg1 Corrections: (The following items were deleted from the chart) 11:08 11:04 03/22/2021 11:04 Discharged to Home. Impression: Low back pain. Condition is vg1 Stable. Forms are Medication Reconciliation Form, Thank You Letter, Antibiotic Education, Prescription Opioid Use. Follow up: Emergency Department; When: As needed; Reason: Worsening of condition. Follow up: Private Physician; When: 2 - 3 days; Reason: Recheck today's complaints, Continuance of care, Re-evaluation by your physician. kb
--- NOTE | 2021-03-22 11:04 | ER ---
Nurse's Notes [facility] Name: Afua Cunningham Age: 60 yrs Sex: Female : 1960 Arrival Date: 03/22/2021 Time: 10:18 Bed 13 Private MD: Diagnosis: Low back pain Presentation: 03/22 10:21 Chief complaint: Patient states: my back aches, right in the middle, it started last tw2 night about 9pm, i tried tylenol and it didn't help, i lifted my niece and that might have hurt me. Coronavirus screen: At this time, the client does not indicate any symptoms associated with coronavirus-19. Ebola Screen: Patient denies travel to an Ebola-affected area in the 21 days before illness onset. Initial Sepsis Screen: Does the patient meet any 2 criteria? HR > 90 bpm. No. Patient's initial sepsis screen is negative. Does the patient have a suspected source of infection? No. Patient's initial sepsis screen is negative. Risk Assessment: Do you want to hurt yourself or someone else? Patient reports no desire to harm self or others. Onset of symptoms was March 22, 2021. 10:21 Method Of Arrival: Ambulatory tw2 10:21 Acuity: ASHA 3 tw2 Triage Assessment: 10:22 General: Appears in no apparent distress. obese, well groomed, Behavior is calm, tw2 cooperative, appropriate for age. Pain: Complains of pain in back. Neuro: Level of Consciousness is awake, alert, obeys commands, Oriented to person, place, time, situation. Musculoskeletal: Range of motion: intact in all extremities, Reports pain in back since last night, "i have MS". Historical: - Allergies: 10:22 No Known Allergies; tw2 - Home Meds: 10:22 Effexor XR 150 mg Oral cp24 1 cap once daily [Active]; losartan 100 mg Oral tab 1 tab tw2 once daily [Active]; - PMHx: 10:22 Anxiety; Asthma; Back pain; Depression; fx in middle of back; GERD; Hypertension; UTI; tw2 - Immunization history:: Adult Immunizations. - Social history:: Smoking status: . Screenin:39 Abuse screen: Denies threats or abuse. Nutritional screening: No deficits noted. vg1 Tuberculosis screening: No symptoms or risk factors identified. Fall Risk No fall in past 12 months (0 pts). No secondary diagnosis (0 pts). No IV (0 pts). Ambulatory Aid- None/Bed Rest/Nurse Assist (0 pts). Gait- Normal/Bed Rest/Wheelchair (0 pts) Mental Status- Oriented to own ability (0 pts). Total Hernadez Fall Scale indicates No Risk (0-24 pts). Assessment: 10:33 General: Appears in no apparent distress. uncomfortable, Behavior is calm, cooperative. vg1 Pain: Complains of pain in Mid back that radiates to left side of back Pain currently is 8 out of 10 on a pain scale. Pain began 1 day ago. Neuro: Level of Consciousness is awake, alert, obeys commands, Oriented to person, place, time, situation. Cardiovascular: Patient's skin is warm and dry. Respiratory: Airway is patent Respiratory effort is even, unlabored. GI: No signs and/or symptoms were reported involving the gastrointestinal system. : No signs and/or symptoms were reported regarding the genitourinary system. EENT: No signs and/or symptoms were reported regarding the EENT system. Derm: Skin is intact, is healthy with good turgor. Musculoskeletal: Circulation, motion, and sensation intact. Vital Signs: 10:21 BP 181 / 97; Pulse 93; Resp 17; Temp 98.6(TE); Pulse Ox 98% on R/A; Weight 87.09 kg tw2 (R); Height 5 ft. 1 in. (154.94 cm); Pain 9/10; 10:39 BP 158 / 105; Pulse 89; Resp 18; Pulse Ox 98% on R/A; vg1 10:21 Body Mass Index 36.28 (87.09 kg, 154.94 cm) tw2 ED Course: 10:18 Patient arrived in ED. ds1 10:22 Triage completed. tw2 10:23 Arm band placed on. tw2 10:24 Amber Berger RN is Primary Nurse. vg1 10:29 Misti Barragan FNP-C is PHCP. kb 10:29 Timothy Wild MD is Attending Physician. kb 10:39 Patient has correct armband on for positive identification. Bed in low position. Call vg1 light in reach. Side rails up X 1. 11:07 No provider procedures requiring assistance completed. Patient did not have IV access vg1 during this emergency room visit. Administered Medications: 10:53 Drug: [place] (HYDROcodone-acetaminophen) (7.5 mg-325 mg) 1 tabs Route: PO; vg1 11:08 Follow up: Response: No adverse reaction vg1 Outcome: 11:04 Discharge ordered by . gelacio 11:08 Discharged to home ambulatory. vg1 11:08 Condition: stable 11:08 Discharge instructions given to patient, Instructed on discharge instructions, follow up and referral plans. medication usage, Demonstrated understanding of instructions, follow-up care, medications, Prescriptions given X 2. 11:08 Patient left the ED. vg1 Signatures: Misti Barragan, LOLISC INSURANCE SALES SUPERVISOR-Mckenzie Pandey ds1 Lucy Klein, RN RN tw2 Amber Berger RN RN vg1
[2021-03-22] MEDS ORDERED: HYDROCODONE/APAP 7.5/325 MG TAB ONE (11:10)
[2021-03-22 11:21] VITALS: BP 158/105; TEMP 98.6; O2SAT 98
== END 2021-03-22 11:08 | disposition home or self-care (01) ==
LOC: ER 10:16
DX: M54.5 Low back pain (principal); I10 Essential (primary) hypertension; F41.8 Other specified anxiety disorders
CPT/HCPCS: 99283

== ENCOUNTER 2021-05-22 11:28 | Emergency (ER) | payer MEDICARE, OTHER ==
--- OUTSIDE RECORDS SUMMARY | 2021-05-22 11:30 | XMS REPORT | Continuity of Care Document ---
:1960 Author Organization [facility] t Address [address] [place] [address] Care Team Providers Name Role Phone Isaac WHITE Attending Clinician Wes MCDOWELL Attending Clinician Vidal Williamson DO Attending Clinician Doctor Unassigned, Name Attending Clinician Unavailable Chidi WHITE, L Attending Clinician Desi PAC, S Attending Clinician Essence PAC, S Attending Clinician Ary FIGUEROA, T Attending Clinician [...] Date/Time Type Type Clinicians Facility Department ID 2021-05-22 2021-05-[address] [facility] [id number] 09:22:00 10:24:00 Cristobal Desir [id number] [place] [id number] Bernard [phone] 084 2021-04-05 2021-04-05 [facility] [id number] 11:37:00 13:25:00 Allegra Karlee [id number] [place] [id number] Bernard [id number] [id number] 2021-03-16 2021-03-16 Emergency [facility] [id number] 08:30:00 10:05:00 Linda Desir [id number] [place] [id number] Bernard [id number] [id number] 2021-03-16 2021-03-16 Orders Doctor KARYN [id number] 00:00:00 00:00:00 Only Unassigned, BEATRIZ [id number] [place] [facility] [id number] [id number] 2021-03-02 2021-03-02 Telephone [facility] [id number] 00:00:00 00:00:00 [facility] [id number] Surgical [id number] [facility] [phone] zacarias Johnson [place] 2021-02-17 2021-02-17 Emergency [facility] 1.2.840.114 [id number] 17:20:00 18:16:00 Linda Desir [id number] [place] [id number] Bernard [id number] [id number] 2021-02-12 2021-02-12 Emergency [facility] [id number] 11:02:00 11:46:00 Kellie Desir [id number] [place] [id number] Bernard [id number] [id number] 2020-09-28 2020-09-[address] [facility] [id number] 00:00:00 00:00:00 [facility] [id number] Surgical [id number] [facility] [id number] zacarias Desir 2020-07-18 2020-07-18 Emergency [facility] [id number] 11:27:00 12:25:00 Cristobal Desir [id number] [place] [id number] Bernard [id number] 084 2020-07-14 2020-07-14 Emergency [facility] [id number] 10:35:00 11:01:00 Cristobal Desir [id number] [place] [id number] Bernard [id number] [id number] 2020-07-06 2020-07-06 Letter KARYN Mcallister [id number] 00:00:00 00:00:00 (Out) Johnna HENDERSON [id number] [facility] [id number] 2020-07-03 2020-07-03 Emergency Ivan, K [facility] 1.2.840.114 [id number] 14:13:00 17:14:00 Sindy Desir [id number] [place] [id number] Bernard [id number] [id number] 2020-06-18 2020-06-18 Orders Doctor KARYN [id number] [id number] 00:00:00 00:00:00 Only Unassigned, BEATRIZ [id number] [place] [id number] [id number] 2020-06-11 2020-06-11 Emergency Cristobal Gray [facility] 1.2.840. 114 [id number] 07:22:31 07:47:00 Cristobal Gray [id number] [place] [id number] Bernard [id number] [id number] 2020-06-11 2020-06-11 Orders Doctor BOSS 1.2.840.114 [id number] 00:00:00 00:00:00 Only Unassigned, BEATRIZ [id number] [place] [facility] [id number] [id number] [id number] 2020-06-03 2020-06-[address] [facility] [id number] 15:21:35 18:43:00 Kellie Shanks Karlee [id number] [place] [id number] Bernard [id number] [id number] 2020-06-03 2020-06-03 Orders Doctor KARYN 1.2.840.114 [id number] 00:00:00 00:00:00 Only Unassigned, BEATRIZ [id number] [place] [facility] [id number] [id number] [id number] 2020-05-31 2020-05-31 Telephone [facility] [id number] 00:00:00 00:00:00 [facility] [id number] Surgical [id number] [facility] [phone] es 198 Karlee 2020-05-18 2020-05-[address] [facility] 1.2.840.114 [id number] 15:22:03 16:00:04 Visit [facility] [id number] Surgical [id number] [facility] [phone] es 198 Karlee Results This patient has no known results.
[2021-05-22] MEDS ORDERED: HYDROCODONE/APAP 10/325 TAB ONE ×2 (12:54→15:17)
--- NOTE | 2021-05-22 14:37 | RAD REPORT ---
EXAM DESCRIPTION: RAD - Foot Right 3 View - 05/22/2021 2:04 pm CLINICAL HISTORY: Right foot pain FINDINGS: No fracture or dislocation is seen. Mild narrowing of DIP and PIP joints. Bones appear osteoporotic. Prominent spur extends off posterior aspect of the calcaneus
--- NOTE | 2021-05-22 14:40 | EDPHYS ---
Physician Documentation [facility] Name: Afua Cunningham Age: 60 yrs Sex: Female : 1960 Arrival Date: 05/22/2021 Time: 11:32 Bed 24 Private MD: ED Physician Sonny Murray HPI: 05/22 13:54 This 60 yrs old Black Female presents to ER via Ambulatory with complaints of Foot Pain.rn 13:54 The patient presents with pain, that is acute. The complaints affect the right foot. rn Context: The problem was sustained at an unknown location, resulted from an unknown cause, Mechanism of Injury: Unknown the patient can fully bear weight, the patient is able to ambulate. Onset: The symptoms/episode began/occurred 2 day(s) ago. Modifying factors: The symptoms are alleviated by elevation of extremity, sitting, the symptoms are aggravated by weight bearing, movement. Associated signs and symptoms: Pertinent negatives: fever, numbness, tingling, warmth, weakness. Severity of symptoms: At their worst the symptoms were moderate, in the emergency department the symptoms are unchanged. The patient has not experienced similar symptoms in the past. Reports right foot pain, no injury, began 2 days ago, along lateral edge of foot, no swelling/redness/fever/injury. + hx of neuropathy. No new exercises or activity. . Historical: - Allergies: 12:10 No Known Allergies; ss - PMHx: 12:10 Anxiety; Asthma; Back pain; Depression; fx in middle of back; GERD; Hypertension; UTI; ss - Immunization history:: Adult Immunizations up to date. - Social history:: Smoking status: Patient reports the use of cigarette tobacco products, smokes one-half pack cigarettes per day. - Family history:: not pertinent. - Hospitalizations: : No recent hospitalization is reported. ROS: 13:54 Constitutional: Negative for fever, chills, and weight loss, Cardiovascular: Negative rn for chest pain, palpitations, and edema, Respiratory: Negative for shortness of breath, cough, wheezing, and pleuritic chest pain, Abdomen/GI: Negative for abdominal pain, nausea, vomiting, diarrhea, and constipation, Back: Negative for injury and pain, MS/Extremity: + right foot pain, no injury Skin: Negative for injury, rash, and discoloration, Neuro: Negative for headache, weakness, numbness, tingling, and seizure. Exam: 13:54 Constitutional: This is a well developed, well nourished patient who is awake, alert, rn and in no acute distress. Sittign in bed reading newspaper when I came in. Skin: Warm, dry with normal turgor. Normal color with no rashes, no lesions, and no evidence of cellulitis. MS/ Extremity: Pulses equal, no cyanosis. Neurovascular intact. Full, normal range of motion. Equal circumference. Mild tenderness along lateral foot, no skin changes noted, no open wounds. Strong pulses. Vital Signs: 12:21 BP 203 / 116; Pulse 79; Resp 18; Temp 98.2(O); Pulse Ox 97% on R/A; Pain 9/10; ld1 12:23 BP 203 / 116; Pulse 103; Resp 14; Temp 98.0(TE); Pulse Ox 97% on R/A; Weight 87.09 kg; ss Height 5 ft. 1 in. (154.94 cm); Pain 9/10; 13:47 BP 149 / 100; Pulse 92; Resp 18; Pulse Ox 98% on R/A; ld1 14:30 BP 152 / 98; Pulse 76; Resp 18; Pulse Ox 98% on R/A; ld1 12:23 Body Mass Index 36.28 (87.09 kg, 154.94 cm) ss MDM: 12:16 Patient medically screened. rn 14:26 Differential diagnosis: fracture, sprain, arthritis, chronic pain. Data reviewed: vital rn signs, nurses notes, radiologic studies, plain films, and as a result, I will discharge patient. Counseling: I had a detailed discussion with the patient and/or guardian regarding: the historical points, exam findings, and any diagnostic results supporting the discharge/admit diagnosis, radiology results, the need for outpatient follow up, to return to the emergency department if symptoms worsen or persist or if there are any questions or concerns that arise at home. Response to treatment: the patient's symptoms have mildly improved after treatment, and as a result, I will discharge patient. Special discussion: I discussed with the patient/guardian in detail that at this point there is no indication for admission to the hospital. It is understood, however, that if the symptoms persist or worsen the patient needs to return immediately for re-evaluation. Based on the history and exam findings, there is no indication for further emergent testing or inpatient evaluation. I discussed with the patient/guardian the need to see the scene painter for further evaluation of the symptoms. I discussed with the patient/guardian the need to see the police specialist for further evaluation of the symptoms. ED course: No acute findings on xray foot, no direct trauma or infectious etiology, strong pulses. Recommend OTC pain medication, patient states not helping, sees pain management already, will defer stronger pain medication to them given no acute findings requiring narcotic pain medication found.. 05/22 12:21 Order name: XRAY Foot RIGHT 3 View; Complete Time: 14:38 rn Administered Medications: 12:35 Drug: [place] (HYDROcodone-acetaminophen) 10 mg-325 mg 1 tabs Route: PO; ld1 15:15 Follow up: Response: No adverse reaction ld1 14:57 Drug: [place] (HYDROcodone-acetaminophen) 10 mg-325 mg 1 tabs Route: PO; ld1 15:15 Follow up: Response: No adverse reaction ld1 Disposition Summary: 05/22/21 14:39 Discharge Ordered Location: Home rn Problem: new rn Symptoms: have improved rn Condition: Stable rn Diagnosis - Pain in right foot rn Followup: rn - With: Private Physician - When: As needed - Reason: Recheck today's complaints, Re-evaluation by your physician Discharge Instructions: - Discharge Summary Sheet rn - Foot Pain rn Forms: - Medication Reconciliation Form rn - Thank You Letter rn - Antibiotic rn post partum - Prescription Opioid Use rn Prescriptions: - Diclofenac Sodium 75 mg Oral tablet,delayed release (DR/EC) - take 1 tablet by ORAL route 2 times per day; 15 tablet; Refills: 0, Product rn Selection Permitted Signatures: Dispatcher [employer] Sonny Cooper MD MD rn Smirch, Shelby, RN RN Francy Murrieta RN RN ld1
--- NOTE | 2021-05-22 14:40 | ER ---
Nurse's Notes [facility] Name: Afua Cunningham Age: 60 yrs Sex: Female : 1960 Arrival Date: 05/22/2021 Time: 11:32 Bed 24 Private MD: Diagnosis: Pain in right foot Presentation: 05/22 12:09 Chief complaint: Patient states: R foot pain x 2 days. No swelling. Denies injury. ss Coronavirus screen: Client denies travel out of the [place] in the last 14 days. Ebola Screen: Patient denies exposure to infectious person. Patient denies travel to an Ebola-affected area in the 21 days before illness onset. Initial Sepsis Screen: Does the patient meet any 2 criteria? No. Patient's initial sepsis screen is negative. Does the patient have a suspected source of infection? No. Patient's initial sepsis screen is negative. Risk Assessment: Do you want to hurt yourself or someone else? Patient reports no desire to harm self or others. Onset of symptoms was May 20, 2021. 12:09 Method Of Arrival: Ambulatory ss 12:09 Acuity: ASHA 4 ss Historical: - Allergies: 12:10 No Known Allergies; ss - PMHx: 12:10 Anxiety; Asthma; Back pain; Depression; fx in middle of back; GERD; Hypertension; UTI; ss - Immunization history:: Adult Immunizations up to date. - Social history:: Smoking status: Patient reports the use of cigarette tobacco products, smokes one-half pack cigarettes per day. - Family history:: not pertinent. - Hospitalizations: : No recent hospitalization is reported. Screenin:23 Abuse screen: Denies threats or abuse. Denies injuries from another. Nutritional ss screening: No deficits noted. Tuberculosis screening: Never had TB. Fall Risk None identified. Assessment: 12:21 General: Appears in no apparent distress. comfortable, Behavior is calm, cooperative, ld1 appropriate for age. Pain: Complains of pain in right foot Pain does not radiate. Pain currently is 9 out of 10 on a pain scale. Quality of pain is described as throbbing, Pain began 2-3 days ago. Is continuous. Neuro: Level of Consciousness is awake, alert, obeys commands, Oriented to person, place, time, situation, Appropriate for age. Cardiovascular: Capillary refill < 3 seconds Patient's skin is warm and dry. Respiratory: Airway is patent Respiratory effort is even, unlabored, Respiratory pattern is regular, symmetrical. GI: Abdomen is flat, non-distended. : No signs and/or symptoms were reported regarding the genitourinary system. EENT: No signs and/or symptoms were reported regarding the EENT system. Derm: No signs and/or symptoms reported regarding the dermatologic system. Musculoskeletal: No signs and/or symptoms reported regarding the musculoskeletal system. 13:47 Reassessment: Patient appears in no apparent distress at this time. Patient is alert, ld1 oriented x 3, equal unlabored respirations, skin warm/dry/pink. 15:08 Reassessment: Patient appears in no apparent distress at this time. Patient is alert, ld1 oriented x 3, equal unlabored respirations, skin warm/dry/pink. Vital Signs: 12:21 BP 203 / 116; Pulse 79; Resp 18; Temp 98.2(O); Pulse Ox 97% on R/A; Pain 9/10; ld1 12:23 BP 203 / 116; Pulse 103; Resp 14; Temp 98.0(TE); Pulse Ox 97% on R/A; Weight 87.09 kg; ss Height 5 ft. 1 in. (154.94 cm); Pain 9/10; 13:47 BP 149 / 100; Pulse 92; Resp 18; Pulse Ox 98% on R/A; ld1 14:30 BP 152 / 98; Pulse 76; Resp 18; Pulse Ox 98% on R/A; ld1 12:23 Body Mass Index 36.28 (87.09 kg, 154.94 cm) ED Course: 11:32 Patient arrived in ED. mr 12:10 Triage completed. ss 12:10 Arm band placed on left wrist. ss 12:14 Francy Murrieta, [place] is Primary Nurse. ld1 12:16 Sonny Murray MD is Attending Physician. rn 12:23 Patient has correct armband on for positive identification. Bed in low position. Call ss light in reach. 14:05 XRAY Foot RIGHT 3 View In Process Unspecified. EDMS 15:09 No provider procedures requiring assistance completed. Patient did not have IV access ld1 during this emergency room visit. Administered Medications: 12:35 Drug: Na[place] (HYDROcodone-acetaminophen) 10 mg-325 mg 1 tabs Route: PO; ld1 15:15 Follow up: Response: No adverse reaction ld1 14:57 Drug: Na[place] (HYDROcodone-acetaminophen) 10 mg-325 mg 1 tabs Route: PO; ld1 15:15 Follow up: Response: No adverse reaction ld1 Outcome: 14:39 Discharge ordered by . rn 15:09 Discharged to home ambulatory. ld1 15:09 Condition: stable 15:09 Discharge instructions given to patient, Instructed on discharge instructions, follow up and referral plans. medication usage, Demonstrated understanding of instructions, follow-up care, medications. 15:09 Patient left the ED. ld1 Signatures: Dispatcher [employer] EDMT EdisonDiane mr MurraySonny MD MD rn Smirch, Shelby, RN RN Francy Murrieta RN RN ld1 Corrections: (The following items were deleted from the chart) 12:25 12:24 No provider procedures requiring assistance completed. ss 12:25 12:24 Patient did not have IV access during this emergency room visit. ss
[2021-05-22 15:18] VITALS: TEMP 98
[2021-05-22 15:20] VITALS: O2SAT 98
[2021-05-22 15:21] VITALS: BP 152/98
== END 2021-05-22 15:09 | disposition home or self-care (01) ==
LOC: ER 11:28
DX: M79.671 Pain in right foot (principal); I10 Essential (primary) hypertension; F17.210 Nicotine dependence, cigarettes, uncomplicated
CPT/HCPCS: 99283

== ENCOUNTER 2024-02-28 14:40 | Emergency (ER) | payer MEDICARE, OTHER ==
--- OUTSIDE RECORDS SUMMARY | 2024-02-28 14:46 | XMS REPORT | Continuity of Care Document ---
Author Name Unknown Address [address] [facility] [address] [place] [address] [facility] thconnect Address [address] [facility] [address] [place] [address] Care Team Providers Care Engineering Programmer Name Role Phone Pcp-None Primary Care Physician Unavailab MACKENZIE Hooper Attending Clinician Unavailable ELLIE DELUCA Attending Clinician Unavailable NGHIA MENENDEZ Attending Clinician Unavailable Nghia Menendez MD Attending Clinician [phone] Doctor Unassigned, [place] Attending Clinician U navailable Chay Barron Attending Clinician [phone] CHAY WEEKS S Attending Clinician Unavailable MIRIAM VERGARA Attending Clinician Unavailable ALTON REYES Attending Clinician Unavailable ALTON REYES Attending Clinician Unavailable Tang WHITE Mackenzie Attending Clinician [phone] YARI HORNE Attending Clinician Unavaila Alton Henderson DO Attending Clinician [phone] JULI TURNER Attending Clinician RAY Burkett Attending Clinician Unavailable Ellie Deluca MD L Attending Clinician [phone] MAMIE BARBOZA Attending Clinician Unavailable Green Kiera MCDOWELL Attending Clinician [phone], [facility] Attending Clinician Unavailable Quentin [facility] Attending Clinician [phone] Prosper Graff Attending Clinician [phone] Unknown, Attending Attending Clinician Unavailab PROSPER Lynn Attending Clinician Unavailable DERECK JOHNSON Attending Clinician Unavailable DERECK JOHNSON Attending Clinician Unavailable SONIA PICKARD Attending Clinician Unavaila Sonia Kent Attending Clinician + [phone] Mamie Cabrales Attending Clinician [phone] CHONG BAILEY Attending Clinician UnavailChong Spicer MD Attending Clinician [phone] SANDRA ANDRADE Attending Clinician Unavaila jr HinojosaunSandra Summers Attending Clinician [phone] Lab, Ang - Db Attending Clinician Unavailable MEAGHAN JACOBO Attending Clinician Unavailable DEIDRA MEEK Attending Clinician Unavailable Deidra Meek NP Attending Clinician [phone] RUTHIE HANEY Attending Clinician Unavailable Layne Weir MD Attending Clinician [phone] LAYNE WEIR Attending Clinician Unavailable Ruthie Davis Attending Clinician [phone] ISABELLE PRECIADO Attending Clinician Unavailable Isabelle Husain Attending Clinician [phone] [facility] Attending Clinician Unavail able Mikael Shafer MD Attending Clinician [phone] GURU MEZA Attending Clinician Unavailable Guru Meza DO Attending Clinician [phone] ROSY FLOWERS Attending Clinician Unavailgloria norris Pob, [facility] Main Attending Clinician UnavailREKHA Sanford Attending Clinician Unavailable Isac CHECKERER HAND, Rekha Attending Clinician [phone] Provider, [facility] Attending Clinician Unavailable Neli Baron MD Attending Clinician [phone] Tor WHITE, Rosy Hameed Attending Clinician [phone] LINDA DEGROOT Attending Clinician Unavailab rosana HERRINGP, Timothy Attending Clinician [phone] TIMOTHY BAILEY Attending Clinician Unavailable Linda Degroot DO Attending Clinician [phone] Christy Partida Attending Clinician Unavailable Wes MCDOWELL, Meghan Attending Clinician + [phone] Regis Cortez MD Attending Clinician [phone] REGIS CORTEZ Attending Clinician Unavailable Janet Tavera Attending Clinician [phone] Janet LOVE Attending Clinician Unavailable Barry Manuel Attending Clinician +[phone] BARRY GOMEZ Attending Clinician Unavailable Brian Gray MD Attending Clinician + BRIAN GRAY Attending Clinician Unavailable MEGHAN HARVEY Attending Clinician Unavailable Ary FIGUEROA, Johnna Tenorio Attending Clinician Unavailab rosana MCDOWELL, Jacqueline Attending Clinician + [phone] Bruce Loco Attending Clinician + Jessica FIGUEROA, Jeannie Maloney Attending Clinician [phone] Mee WHITE, Kali Melo Attending Clinician [phone] Roman Perez Attending Clinician [phone] SANDRA ANDRADE Admitting Clinician Unavaila DEIDRA Calvin Admitting Clinician Unavailable LAYNE WEIR Admitting Clinician Unavailable GURU MEZA Admitting Clinician Unavailable CHONG BAILEY Admitting Clinician UnavailMAMIE Patel Admitting Clinician Unavailable REKHA CHAU Admitting Clinician Unavailable CHAY WEEKS Admitting Clinician Unavailable MEGHAN HARVEY Admitting Clinician Unavailable Mee WHITE, Kali Melo Admitting Clinician Payers Payer Name Policy Type Policy Number Effective Date Expirati on Date Source [employer] MED[employer]ARE [employer]VANTAGE [id number] 2012 00:00:00 [facility] MEDICA[facility] [id number] 2016 00:00:00 [facility] [id number] 2023 00:00:00 2023 00:00:00 Problems Condition Name Condition Details Condition Category Status Onset Date Resolution Date Last Treatment Date Treating Clinician Comments Source Depression , unspecifie d depression type Depression , unspecifie d depression type Disease Active 08-06 00:00: 00 [facility] Chronic bilateral low back pain without sciatica Chronic bilateral low back pain without sciatica Disease Active 2021-11 00:00: 00 [facility] Cardiac murmur Cardiac murmur Disease Active 2020-11 00:00: 00 [facility] Anemia, unspecifie d type Anemia, unspecifie d type Disease Active 2020-11 00:00: 00 [facility] Chronic GERD Chronic GERD Disease Active 2020-11 00:00: 00 [facility] Moderate persistent asthma without complicati on Moderate persistent asthma without complicati on Disease Active 2020-11 00:00: 00 [facility] Hypertensi on, essential Hypertensi on, essential Disease Active 2020-11 00:00: 00 [facility] Drug-seeki ng behavior Drug-seeki ng behavior Disease Active 2020-11 00:00: 00 [facility] Altered mental status Altered mental status Disease Active 07-17 00:00: 00 [facility] Obesity (BMI 30-39.9) Obesity (BMI 30-39.9) Disease Active 05-31 00:00: 00 [facility] Hypertensi ve urgency Hypertensi ve urgency Disease Active 05-31 00:00: 00 [facility] Allergies, Adverse Reactions, Alerts Allergy Name Allergy Type Status Severity Reaction(s) Onset Date Inactive Date Treating Clinician Comments Source Unable to Assess DA Active U 08-10 00:00: [address] [facility] No Known Drug Allergie s DA Active U 08-10 00:00: [address] [facility] NO KNOWN ALLERGIE S Drug Class Active [facility] Social History Social Habit Start Date Stop Date Quantity Comments Source History SDOH Alcohol Binge [facility] History SDOH Alcohol Comment [facility] History of tobacco use Cigarette Smoker [facility] Alcohol intake 2024-01-14 00:00:00 2024-01-14 00:00:00 Ex-drinker (finding) [facility] History of Social function 2024-01-14 00:00:00 2024-01-14 00:00:00 [facility] Exposure to SARS-CoV-2 (event) 2023-04-07 00:00:00 2023-04-17 09:48:00 Not sure [facility] Cigarettes smoked current (pack per day) - Reported 2022-07-03 00:00:00 2022-07-03 00:00:00 [facility] Cigarette pack-years 2022-07-03 00:00:00 2022-07-03 00:00:00 [facility] Tobacco use and exposure 2022-07-03 00:00:00 2022-07-03 00:00:00 Smokeless tobacco non-user [facility] History SDOH Alcohol Frequency 2019-07-17 00:00:00 2019-07-17 00:00:00 5 [facility] History SDOH Alcohol Std Drinks 2019-07-17 00:00:00 2019-07-17 00:00:00 3 [facility] Education - What is the highest level of school you have completed or the highest degree you have received? 2019-05-31 00:00:00 2019-05-31 00:00:00 7th grade [facility] History SDOH Financial 2019-05-31 00:00:00 2019-05-31 00:00:00 1 [facility] History SDOH Transport Med 2019-05-31 00:00:00 2019-05-31 00:00:00 1 [facility] History SDOH Transport Non-Med 2019-05-31 00:00:00 2019-05-31 00:00:00 1 [facility] Sex Assigned At 1960 00:00:00 1960 00:00:00 [facility] Smoking Status Start Date Stop Date Source Smokes tobacco daily 2022-07-03 00:00:00 [facility] Medications Ordered Medication Name Filled Medication Name Start Date Stop Date Current Medication? Ordering Clinician Indication Dosage Frequency Signature (SIG) Comments Components Source HYDROcodone -acetaminop hen 10-325 mg tablet 02-10 00:00: 00 Yes [id number] 1{tbl} Take 1 tablet by mouth every 6 (six) hours as needed for Pain (scale 4-6). Indication s: chronic pain [facility] venlafaxine 75 mg tablet 01-14 00:00: 00 Yes [id number] 75mg Take 1 tablet by mouth in the morning and 1 tablet in the evening. [facility] pantoprazol e 20 mg EC tablet 01-14 00:00: 00 Yes [id number] 20mg Take 1 tablet by mouth in the morning. [facility] traZODone 50 mg tablet 01-14 00:00: 00 Yes [id number] 25mg Take 0.5 tablets by mouth at bedtime. [facility] HYDROcodone -acetaminop hen 10-325 mg tablet 01-14 00:00: 00 02-10 00:00 :00 No [id number] 1{tbl} Take 1 tablet by mouth every 6 (six) hours as needed for Pain (scale 4-6). Indication s: chronic pain [facility] lactulose 10 gram/15 mL solution 12-15 00:00: 00 Yes [id number] TAKE 15 ML BY MOUTH EVERY DAY NEEDED FOR CONSTIPATI ON [facility] HYDROcodone -acetaminop hen 10-325 mg tablet 12-15 00:00: 00 01-14 00:00 :00 No [id number] 1{tbl} Take 1 tablet by mouth every 6 (six) hours as needed for Pain (scale 4-6). Indication s: chronic pain [facility] atorvastati n 20 mg tablet 2022-11 00:00: 00 Yes [id number] 20mg Take 1 tablet by mouth in the morning. [facility] amLODIPine (NORVASC) 10 mg tablet 2022-11 00:00: 00 Yes [id number] 10mg Take 1 tablet by mouth in the morning. [facility] hydroCHLORO thiazide 25 mg tablet 2022-11 00:00: 00 Yes [id number] 25mg Take 1 tablet by mouth in the morning. [facility] HYDROcodone -acetaminop hen 10-325 mg tablet 2022-11 00:00: 00 12-15 00:00 :00 No [id number] 1{tbl} Take 1 tablet by mouth every 6 (six) hours as needed for Pain (scale 4-6). Indication s: chronic pain [facility] HYDROcodone -acetaminop hen 10-325 mg tablet 2022-11 00:00: 00 11-12 00:00 :00 No [id number] 1{tbl} Take 1 tablet by mouth every 6 (six) hours as needed for Pain (scale 4-6). Indication s: chronic pain [facility] HYDROcodone -acetaminop hen 10-325 mg tablet 2022-11 00:00: 00 10-10 00:00 :00 No [id number] 1{tbl} Take 1 tablet by mouth every 6 (six) hours as needed for Pain (scale 4-6). Indication s: chronic pain [facility] budesonide- formoteroL (SYMBICORT) 160-4.5 mcg/actuati on inhaler 2022-11 00:00: 00 Yes [id number] 2{puff} Inhale 2 Puffs in the morning and 2 Puffs in the evening. [facility] clonazePAM 2 mg tablet 2022-11 00:00: 00 Yes [id number] 2mg Take 1 tablet by mouth every morning and evening. [facility] albuterol 90 mcg/actuati on inhaler 2022-11 00:00: 00 Yes [id number] INHALE 2 PUFFS BY MOUTH EVERY 4 HOURS NEEDED FOR WHEEZING [facility] hydroCHLORO thiazide 25 mg tablet 2022-11 00:00: 00 11-12 00:00 :00 No [id number] 25mg Take 1 tablet by mouth in the morning. [facility] atorvastati n 20 mg tablet 2022-11 00:00: 00 11-12 00:00 :00 No [id number] 20mg Take 1 tablet by mouth in the morning. [facility] amLODIPine (NORVASC) 10 mg tablet 2022-11 00:00: 00 11-12 00:00 :00 No [id number] 10mg Take 1 tablet by mouth in the morning. [facility] LACTULOSE 10 gram/15 mL solution 2022-11 00:00: 00 12-15 00:00 :00 No [id number] TAKE 15 ML BY MOUTH EVERY DAY NEEDED FOR CONSTIPATI ON [facility] HYDROcodone -acetaminop hen 10-325 mg tablet 2022-11 00:00: 00 10-09 00:00 :00 No [id number] 1{tbl} Take 1 tablet by mouth every 6 (six) hours as needed for Pain (scale 4-6). Indication s: chronic pain [facility] hydroCHLORO thiazide 25 mg tablet 2022-11-16 00:00: 00 10-02 00:00 :00 No [id number] 25mg Take 1 tablet by mouth in the morning. [facility] HYDROcodone -acetaminop hen 10-325 mg tablet 2022-11 0-12 00:00: 00 09-10 00:00 :00 No [id number] 1{tbl} Take 1 tablet by mouth every 6 (six) hours as needed for Pain (scale 4-6). Indication s: chronic pain [facility] CLONAZEPAM 2 mg tablet 20208-18 00:00: 00 10-02 00:00 :00 No [id number] 2mg TAKE 1 TABLET BY MOUTH IN THE MORNING AND IN THE EVENING [facility] atorvastati n 20 mg tablet 08-11 00:00: 00 10-02 00:00 :00 No [id number] 20mg Take 1 tablet by mouth in the morning. [facility] azithromyci n 250 mg tablet 08-06 00:00: 00 Yes [id number] 250mg Take 1 tablet by mouth in the morning. Take 500 mg day 1, then 250 mg days 2 to 5. [facility] venlafaxine 75 mg tablet 08-06 00:00: 00 01-14 00:00 :00 No [id number] 75mg Take 1 tablet by mouth in the morning and 1 tablet in the evening. [facility] HYDROcodone -acetaminop hen 10-325 mg tablet 08-06 00:00: 00 09-04 00:00 :00 No [id number] 1{tbl} Take 1 tablet by mouth every 6 (six) hours as needed for Pain (scale 4-6). Indication s: chronic pain [facility] HYDROcodone -acetaminop hen 10-325 mg tablet 8-16 00:00: 00 08-06 00:00 :00 No [id number] 1{tbl} Take 1 tablet by mouth every 6 (six) hours as needed for Pain (scale 4-6). Indication s: chronic pain [facility] SYMBICORT 160-4.5 mcg/actuati on inhaler 8- 00:00: 00 10-02 00:00 :00 No [id number] 2{puff} Inhale 2 Puffs in the morning and 2 Puffs in the evening. [facility] budesonide- formoteroL (SYMBICORT) 160-4.5 mcg/actuati on inhaler 7-28 00:00: 00 06-24 00:00 :00 No [id number] 2{puff} Inhale 2 Puffs in the morning and 2 Puffs in the evening. [facility] losartan 100 mg tablet 06-09 00:00: 00 Yes [id number] 100mg Take 1 tablet by mouth in the morning. [facility] pantoprazol e 20 mg EC tablet 06-09 00:00: 00 01-14 00:00 :00 No [id number] 20mg Take 1 tablet by mouth in the morning. [facility] albuterol 90 mcg/actuati on inhaler 06-09 00:00: 00 10-02 00:00 :00 No [id number] INHALE 2 PUFFS BY MOUTH EVERY 4 HOURS NEEDED FOR WHEEZING [facility] lactulose 10 gram/15 mL solution 06-09 00:00: 00 09-11 00:00 :00 No [id number] TAKE 15 ML BY MOUTH EVERY DAY NEEDED FOR CONSTIPATI ON [facility] hydroCHLORO thiazide 25 mg tablet 06-09 00:00: 00 09-08 00:00 :00 No [id number] 25mg Take 1 tablet by mouth in the morning. [facility] venlafaxine 75 mg tablet 06-09 00:00: 00 08-06 00:00 :00 No [id number] 75mg Take 1 tablet by mouth in the morning and 1 tablet in the evening. [facility] HYDROcodone -acetaminop hen 10-325 mg tablet 06-09 00:00: 00 07-09 00:00 :00 No [id number] 1{tbl} Take 1 tablet by mouth every 6 (six) hours as needed for Pain (scale 4-6). Indication s: chronic pain [facility] CLONAZEPAM 2 mg tablet 05-28 00:00: 00 08-18 00:00 :00 No [id number] NEED ESCRIPT TAKE ONE TABLET BY MOUTH TWICE DAILY @ 9AM & 5PM [facility] triamcinolo ne acetonide (KENALOG) injection 40 mg 05-22 16:15: 05-22 15:05 :00 No [id number] 40mg [facility] fluconazole (DIFLUCAN) 150 mg tablet 04-19 00:00: 00 Yes [id number] Take one tablet; wait 72 hours and take 2nd tablet; wait 72 hours and take 3rd tablet. [facility] cefdinir 300 mg capsule 04-15 00:00: 00 04-26 04:59 :00 No [id number] 600mg Take 2 capsules by mouth in the morning for 10 days. [facility] dexAMETHaso ne (DECADRON) tablet 8 mg 04-10 03:15: 00 04-10 02:36 :00 No 8mg 8 mg, Oral, ONCE NOW, 1 dose, On Fri04/09/23 at 2215, Routine [facility] meloxicam 7.5 mg tablet 04-08 00:00: 00 Yes [id number] 7.5mg Take 1 tablet by mouth in the morning. [facility] HYDROcodone -acetaminop hen 10-325 mg tablet 03-26 00:00: 00 06-09 00:00 :00 No [id number] 1{tbl} Take 1 tablet by mouth every 6 (six) hours as needed for Pain (scale 4-6). Indication s: chronic pain [facility] albuterol 90 mcg/actuati on inhaler 03-26 00:00: 00 06-09 00:00 :00 No [id number] INHALE 2 PUFFS BY MOUTH EVERY 4 HOURS NEEDED FOR WHEEZING [facility] lactulose 10 gram/15 mL solution 03-26 00:00: 00 06-09 00:00 :00 No [id number] TAKE 15 ML BY MOUTH EVERY DAY NEEDED FOR CONSTIPATI ON [facility] sulfamethox azole-trime thoprim (BACTRIM DS) 800-160 mg per tablet 4-12 00:00: 00 Yes [id number] 1{tbl} Take 1 tablet by mouth in the morning and 1 tablet in the evening. [facility] HYDROcodone -acetaminop hen 10-325 mg tablet 12 00:00: 00 03-26 00:00 :00 No [id number] 1{tbl} Take 1 tablet by mouth every 6 (six) hours as needed for Pain (scale 4-6). Indication s: chronic pain [facility] clonazePAM 2 mg tablet 03-04 00:00: 00 05-28 00:00 :00 No [id number] 2mg Take 1 tablet by mouth in the morning and 1 tablet in the evening. [facility] albuterol 90 mcg/actuati on inhaler 03-04 00:00: 00 03-26 00:00 :00 No [id number] INHALE 2 PUFFS BY MOUTH EVERY 4 HOURS NEEDED FOR WHEEZING [facility] triamcinolo ne acetonide (KENALOG) injection 40 mg 02-27 05:00: 00 02-27 16:59 :00 No [id number] 40mg [facility] hydroCHLORO thiazide 25 mg tablet 02-24 00:00: 00 06-09 00:00 :00 No [id number] 25mg Take 1 tablet by mouth in the morning. [facility] ketorolac (TORADOL) injection 30 mg 02-19 18:15: 00 02-19 19:08 :00 No 30mg 30 mg, Intramuscu lar, ONCE, 1 dose, On Fri02/19/23 at 1315, Routine [facility] dexamethaso ne (DECADRON PHOSPHATE) injection 10 mg 02-19 18:15: 00 02-19 18:15 :00 No 10mg 10 mg, Oral, ONCE, 1 dose, On Fri02/19/23 at 1315, Routine [facility] methocarbam oL (ROBAXIN) tablet 1,500 mg 02-19 17:15: 00 02-19 19:07 :00 No 1500mg 1,500 mg, Oral, ONCE, 1 dose, On Fri02/19/23 at 1215, [facility] ketorolac 10 mg tablet 02-19 00:00: 00 04-08 00:00 :00 No [id number] 10mg Take 1 tablet by mouth every 6 (six) hours as needed for Pain (scale 7-10). [facility] methocarbam oL 500 mg tablet 02-19 00:00: 00 02-27 04:59 :00 No [id number] 500mg Take 1 tablet by mouth 4 (four) times daily for 7 days. [facility] ibuprofen 800 mg tablet 02-03 00:00: 00 Yes [id number] 800mg Take 1 tablet by mouth every 6 (six) hours as needed for Pain (scale 4-6). [facility] HYDROcodone -acetaminop hen 10-325 mg tablet 02-03 00:00: 00 03-05 00:00 :00 No [id number] 1{tbl} Take 1 tablet by mouth every 6 (six) hours as needed for Pain (scale 4-6). Indication s: chronic pain [facility] LOSARTAN 100 mg tablet 01-28 00:00: 00 06-09 00:00 :00 No [id number] 100mg TAKE 1 TABLET BY MOUTH IN THE MORNING [facility] pantoprazol e 20 mg EC tablet 12-31 00:00: 00 06-09 00:00 :00 No [id number] 20mg Take 1 tablet by mouth in the morning. [facility] albuterol 90 mcg/actuati on inhaler 12-30 00:00: 00 03-04 00:00 :00 No [id number] INHALE 2 PUFFS BY MOUTH EVERY 4 HOURS NEEDED FOR WHEEZING [facility] HYDROcodone -acetaminop hen 10-325 mg tablet 12-30 00:00: 00 02-03 00:00 :00 No [id number] 1{tbl} Take 1 tablet by mouth every 6 (six) hours as needed for Pain (scale 4-6). Indication s: chronic pain [facility] ibuprofen 800 mg tablet 2- 00:00: 00 02-03 00:00 :00 No [id number] 800mg Take 1 tablet by mouth every 6 (six) hours as needed for Pain (scale 4-6). [facility] pantoprazol e 20 mg EC tablet 2 00:00: 00 12-31 00:00 :00 No [id number] 20mg Take 1 tablet by mouth in the morning. [facility] albuterol 90 mcg/actuati on inhaler 1- 00:00: 00 12-30 00:00 :00 No [id number] INHALE 2 PUFFS BY MOUTH EVERY 4 HOURS NEEDED FOR WHEEZING [facility] HYDROcodone -acetaminop hen 10-325 mg tablet 11-27 00:00: 00 12-30 00:00 :00 No [id number] 1{tbl} Take 1 tablet by mouth every 6 (six) hours as needed for Pain (scale 4-6) for up to 7 days. Indication s: chronic pain [facility] amLODIPine (NORVASC) 10 mg tablet 2021-11 00:00: 00 10-02 00:00 :00 No [id number] 10mg Take 1 tablet by mouth in the morning. [facility] lactulose 10 gram/15 mL solution 2021-11 2 00:00: 00 03-26 00:00 :00 No TAKE 15 ML BY MOUTH EVERY DAY NEEDED FOR CONSTIPATI ON [facility] HYDROcodone -acetaminop hen 10-325 mg tablet 2021-11 2- 00:00: 00 11-05 05:59 :00 No [id number] 1{tbl} Take 1 tablet by mouth every 6 (six) hours as needed for Pain (scale 4-6) for up to 7 days. Indication s: chronic pain [facility] amLODIPine (NORVASC) 5 mg tablet 2021-11 2- 00:00: 00 10-30 00:00 :00 No [id number] 5mg Take 1 tablet by mouth in the morning. [facility] albuterol 90 mcg/actuati on inhaler 2021-11- 00:00: 00 11-27 00:00 :00 No [id number] INHALE 2 PUFFS BY MOUTH EVERY 4 HOURS NEEDED FOR WHEEZING [facility] HYDROcodone -acetaminop hen 7.5-325 mg per tablet 2021-11- 00:00: 00 10-03 05:59 :00 No [id number] 1{tbl} Take 1 tablet by mouth every 6 (six) hours as needed for Pain for up to 7 days. Indication s: chronic pain [facility] venlafaxine 75 mg tablet 2021-11 0- 00:00: 00 06-09 00:00 :00 No [id number] 75mg Take 1 tablet by mouth in the morning and 1 tablet in the evening. [facility] clonazePAM 2 mg tablet 2021-11 00:00: 03-04 00:00 :00 No [id number] 2mg Take 1 tablet by mouth in the morning and 1 tablet in the evening. [facility] pantoprazol e 20 mg EC tablet 2021-11 0 00:00: 00 12-30 00:00 :00 No [id number] 20mg Take 1 tablet by mouth in the morning. [facility] albuterol 90 mcg/actuati on inhaler 2021-11 0- 00:00: 09-25 00:00 :00 No [id number] INHALE 2 PUFFS BY MOUTH EVERY 4 HOURS NEEDED FOR WHEEZING [facility] HYDROcodone -acetaminop hen 7.5-325 mg per tablet 2021-11 0-10 00:00: 00 09-10 04:59 :00 No [id number] 1{tbl} Take 1 tablet by mouth every 8 (eight) hours as needed for Pain for up to 7 days. Indication s: chronic pain [facility] NaCl 0.9% (NS) IV infusion 1,000 mL 2021-11 0- 17:45: 00 09-01 18:21 :00 No 1000mL at 999 mL/hr, Intravenou s, ONCE, 1 dose, On Fri09/01/22 at 1245, [facility] cloNIDine (CATAPRES) tablet 0.1 mg 2021-11 0 17:30: 00 09-01 17:21 :00 No .1mg 0.1 mg, Oral, ONCE, 1 dose, On Fri09/01/22 at 1230, STAT [facility] LORazepam (ATIVAN) tablet 2 mg 2021-11 16:30: 00 09-01 17:11 :00 No 2mg 2 mg, Oral, ONCE, 1 dose, On Fri09/01/22 at 1130, [facility] iopamidol (ISOVUE 370-500 mL) injection 80 mL 2021-11 0 15:45: 00 09-01 16:00 :00 No [id number] 80mL 80 mL, Intravenou s, ONCE, 1 dose, On Fri09/01/22 at 1100, Routine [facility] ondansetron (ZOFRAN (PF)) injection 4 mg 2021-11 14:30: 00 09-01 14:21 :00 No 4mg 4 mg, Slow IV Push, ONCE, 1 dose, On Fri09/01/22 at 0930, [facility] morpHINE (4 mg/mL) injection 4 mg 2021-11 14:30: 00 09-01 14:22 :00 No 4mg 4 mg, Slow IV Push, ONCE, 1 dose, On Fri09/01/22 at 0930, STAT [facility] HYDROcodone -acetaminop hen 7.5-325 mg per tablet 9-14 00:00: 00 08-15 04:59 :00 No [id number] 1{tbl} Take 1 tablet by mouth every 6 (six) hours as needed for Pain for up to 7 days. Indication s: chronic pain [facility] budesonide/ formoterol fumarate (SYMBICORT INHALE) 8-10 15:39: 24 07-03 00:00 :00 No Inhale. [facility] temazepam 15 mg capsule 07-03 15:36: 31 07-03 00:00 :00 No 15mg Take 15 mg by mouth at bedtime as needed for Insomnia. [facility] Venlafaxine 225 mg TR24 07-03 15:34: 06 07-03 00:00 :00 No 75mg Take 75 mg by mouth every morning. [facility] losartan 100 mg tablet 07-03 00:00: 00 01-28 00:00 :00 No [id number] 100mg Take 1 tablet by mouth in the morning. [facility] venlafaxine 75 mg tablet 07-03 00:00: 00 09-02 00:00 :00 No [id number] 75mg Take 1 tablet by mouth in the morning and 1 tablet in the evening. [facility] pantoprazol e 20 mg EC tablet 07-03 00:00: 00 09-02 00:00 :00 No [id number] 20mg Take 1 tablet by mouth in the morning. [facility] clonazePAM 2 mg tablet 07-03 00:00: 00 09-02 00:00 :00 No [id number] 2mg Take 1 tablet by mouth in the morning and 1 tablet in the evening. [facility] albuterol 90 mcg/actuati on inhaler 07-03 00:00: 00 09-02 00:00 :00 No [id number] INHALE 2 PUFFS BY MOUTH EVERY 4 HOURS NEEDED FOR WHEEZING [facility] HYDROcodone -acetaminop hen 7.5-325 mg per tablet 07-03 00:00: 00 07-11 04:59 :00 No [id number] 1{tbl} Take 1 tablet by mouth every 8 (eight) hours as needed for Pain for up to 7 days. Indication s: chronic pain [facility] ALBUTEROL 90 mcg/actuati on inhaler -17 00:00: 00 07-03 00:00 :00 No [id number] INHALE 2 PUFFS BY MOUTH EVERY 4 HOURS NEEDED FOR WHEEZING [facility] acetaminoph en-codeine (TYLENOL-CO DEINE #3) 300-30 mg tablet 4-21 00:00: 00 07-03 00:00 :00 No [id number] 1{tbl} Take 1 tablet by mouth every 4 (four) hours as needed for Pain (scale 4-6) or Pain (scale 7-10). Indication s: acute pain [facility] traMADoL 50 mg tablet 4-14 00:00: 00 07-03 00:00 :00 No [id number] 50mg Take 1 tablet by mouth every 4 (four) hours as needed for Pain (scale 7-10). Indication s: acute pain [facility] pentazocine -naloxone 50-0.5 mg tablet 4-11 00:00: 00 07-03 00:00 :00 No [id number] 1{tbl} Take 1 tablet by mouth every 4 (four) hours as needed for Pain. Indication s: acute pain [facility] diclofenac 75 mg EC tablet 2020-11 2-16 00:00: 00 12-30 00:00 :00 No [id number] 75mg Take 1 tablet by mouth 2 (two) times daily with meals. [facility] traMADoL 50 mg tablet 2020-11 2-09 00:00: 00 07-03 00:00 :00 No [id number] 50mg Take 1 tablet by mouth every 4 (four) hours as needed for Pain (scale 7-10). Indication s: acute pain [facility] METOPROLOL SUCCINATE XL 25 mg 24 hr tablet 2020-11 1-30 00:00: 00 07-03 00:00 :00 No TAKE 1 TABLET BY MOUTH TWICE DAILY [facility] budesonide- formoteroL (SYMBICORT) 160-4.5 mcg/actuati on inhaler 2020-11 0-13 00:00: 00 07-03 00:00 :00 No [id number] 2{puff} Inhale 2 Puffs 2 (two) times daily. [facility] pantoprazol e 20 mg EC tablet 2020-11 0-13 00:00: 00 07-03 00:00 :00 No [id number] 20mg Take 1 tablet by mouth daily. [facility] losartan 100 mg tablet 2020-11 0-13 00:00: 00 07-03 00:00 :00 No [id number] 100mg Take 1 tablet by mouth daily. [facility] Diclofenac Sodium (VOLTAREN) 1 % gel 2020-11 0-07 00:00: 00 07-03 00:00 :00 No [id number] Apply to area(s) 2 (two) times daily. [facility] OLANZapine 10 mg tablet 9-29 00:00: 00 07-03 00:00 :00 No 10mg Take 10 mg by mouth every morning. [facility] ARIPiprazol e 2 mg tablet 6-12 00:00: 00 07-03 00:00 :00 No [facility] clonazePAM 2 mg tablet 5-05 00:00: 00 07-03 00:00 :00 No [facility] Vital Signs Vital Name Observation Time Observation Value Comments S ource Systolic blood pressure 2024-01-14 16:06:00 137 mm[Hg] [facility] Diastolic blood pressure 2024-01-14 16:06:00 85 mm[Hg] [facility] Heart rate 2024-01-14 16:05:00 92 /min [facility] Body height 2024-01-14 16:05:[address] [facility] Body weight 2024-01-14 16:05:[address] [facility] BMI 2024-01-14 16:05:00 35.86 kg/m2 [facility] Oxygen saturation in Arterial blood by Pulse oximetry 2024-01-14 16:05:00 94 /min [facility] Systolic blood pressure 2023-12-15 15:19:00 139 mm[Hg] [facility] Diastolic blood pressure 2023-12-15 15:19:00 89 mm[Hg] [facility] Heart rate 2023-12-15 15:19:00 102 /min [facility] Respiratory rate 2023-12-15 15:19:00 18 /min [facility] Body height 2023-12-15 15:19:00 154.9 cm [facility] Body weight 2023-12-15 15:19:00 86.501 kg [facility] BMI 2023-12-15 15:19:00 36.03 kg/m2 [facility] Oxygen saturation in Arterial blood by Pulse oximetry 2023-12-15 15:19:00 94 /min [facility] Systolic blood pressure 2023-11-12 15:54:00 124 mm[Hg] [facility] Diastolic blood pressure 2023-11-12 15:54:00 86 mm[Hg] [facility] Heart rate 2023-11-12 15:54:00 96 /min [facility] Body height 2023-11-12 15:54:00 157.5 cm [facility] Body weight 2023-11-12 15:54:[address] [facility] BMI 2023-11-12 15:54:00 34.13 kg/m2 [facility] Oxygen saturation in Arterial blood by Pulse oximetry 2023-11-12 15:54:00 96 /min [facility] Systolic blood pressure 2023-10-02 18:23:00 163 mm[Hg] [facility] Diastolic blood pressure 2023-10-02 18:23:00 100 mm[Hg] [facility] Heart rate 2023-10-02 18:22:00 96 /min [facility] Respiratory rate 2023-10-02 18:22:00 18 /min [facility] Body height 2023-10-02 18:22:00 154.9 cm [facility] Body weight 2023-10-02 18:22:00 90.81 kg [facility] BMI 2023-10-02 18:22:00 37.83 kg/m2 [facility] Oxygen saturation in Arterial blood by Pulse oximetry 2023-10-02 18:22:00 97 /min [facility] Systolic blood pressure 2023-09-29 08:11:00 136 mm[Hg] [facility] Diastolic blood pressure 2023-09-29 08:11:00 90 mm[Hg] [facility] Heart rate 2023-09-29 08:11:00 87 /min [facility] Body temperature 2023-09-29 08:11:00 36.72 [facility] Respiratory rate 2023-09-29 08:11:00 20 /min [facility] Body height 2023-09-29 08:11:[address] [facility] Body weight 2023-09-29 08:11:[address] [facility] BMI 2023-09-29 08:11:00 36.28 kg/m2 [facility] Oxygen saturation in Arterial blood by Pulse oximetry 2023-09-29 08:11:00 94 /min [facility] Systolic blood pressure 2023-09-04 15:33:00 132 mm[Hg] [facility] Diastolic blood pressure 2023-09-04 15:33:00 77 mm[Hg] [facility] Heart rate 2023-09-04 15:33:00 94 /min [facility] Body temperature 2023-09-04 15:33:00 36.28 [facility] Body height 2023-09-04 15:33:[address] [facility] Body weight 2023-09-04 15:33:[address] [facility] BMI 2023-09-04 15:33:00 36.37 kg/m2 [facility] Oxygen saturation in Arterial blood by Pulse oximetry 2023-09-04 15:33:00 95 /min [facility] Systolic blood pressure 2023-08-11 15:56:00 131 mm[Hg] [facility] Diastolic blood pressure 2023-08-11 15:56:00 86 mm[Hg] [facility] Heart rate 2023-08-11 15:56:00 101 /min [facility] Body temperature 2023-08-11 15:56:00 35.56 [facility] Respiratory rate 2023-08-11 15:56:00 19 /min [facility] Body height 2023-08-11 15:56:00 154.9 cm [facility] Body weight 2023-08-11 15:56:00 88.95 kg [facility] BMI 2023-08-11 15:56:00 37.05 kg/m2 [facility] Oxygen saturation in Arterial blood by Pulse oximetry 2023-08-11 15:56:00 93 /min [facility] Systolic blood pressure 2023-08-06 15:14:00 132 mm[Hg] [facility] Diastolic blood pressure 2023-08-06 15:14:00 78 mm[Hg] [facility] Heart rate 2023-08-06 15:13:00 91 /min [facility] Respiratory rate 2023-08-06 15:13:00 18 /min [facility] Body height 2023-08-06 15:13:00 154.9 cm [facility] Body weight 2023-08-06 15:13:[address] [facility] BMI 2023-08-06 15:13:00 36.60 kg/m2 [facility] Oxygen saturation in Arterial blood by Pulse oximetry 2023-08-06 15:13:00 96 /min [facility] Systolic blood pressure 2023-07-09 20:14:00 139 mm[Hg] [facility] Diastolic blood pressure 2023-07-09 20:14:00 85 mm[Hg] [facility] Heart rate 2023-07-09 20:14:00 96 /min [facility] Body height 2023-07-09 20:14:00 154.9 cm [facility] Body weight 2023-07-09 20:14:00 80.74 kg [facility] BMI 2023-07-09 20:14:00 33.63 kg/m2 [facility] Oxygen saturation in Arterial blood by Pulse oximetry 2023-07-09 20:14:00 97 /min [facility] Systolic blood pressure 2023-06-20 14:45:00 114 mm[Hg] [facility] Diastolic blood pressure 2023-06-20 14:45:00 75 mm[Hg] [facility] Heart rate 2023-06-20 14:45:00 99 /min [facility] Respiratory rate 2023-06-20 14:45:00 18 /min [facility] Body height 2023-06-20 14:45:[address] [facility] Body weight 2023-06-20 14:45:[address] [facility] BMI 2023-06-20 14:45:00 33.89 kg/m2 [facility] Oxygen saturation in Arterial blood by Pulse oximetry 2023-06-20 14:45:00 90 /min [facility] Systolic blood pressure 2023-06-09 17:45:00 136 mm[Hg] [facility] Diastolic blood pressure 2023-06-09 17:45:00 80 mm[Hg] [facility] Heart rate 2023-06-09 17:45:00 108 /min [facility] Respiratory rate 2023-06-09 17:45:00 18 /min [facility] Body height 2023-06-09 17:45:[address] [facility] Body weight 2023-06-09 17:45:[address] [facility] BMI 2023-06-09 17:45:00 33.08 kg/m2 [facility] Oxygen saturation in Arterial blood by Pulse oximetry 2023-06-09 17:45:00 96 /min [facility] Systolic blood pressure 2023-04-17 15:28:00 112 mm[Hg] [facility] Diastolic blood pressure 2023-04-17 15:28:00 78 mm[Hg] [facility] Heart rate 2023-04-17 15:28:00 87 /min [facility] Body temperature 2023-04-17 15:28:00 37.06 [facility] Respiratory rate 2023-04-17 15:28:00 20 /min [facility] Body height 2023-04-17 15:28:00 154.9 cm [facility] Body weight 2023-04-17 15:28:00 77.202 kg [facility] BMI 2023-04-17 15:28:00 32.16 kg/m2 [facility] Oxygen saturation in Arterial blood by Pulse oximetry 2023-04-17 15:28:00 96 /min [facility] Systolic blood pressure 2023-04-15 19:23:00 145 mm[Hg] [facility] Diastolic blood pressure 2023-04-15 19:23:00 93 mm[Hg] [facility] Heart rate 2023-04-15 19:17:00 89 /min [facility] Body temperature 2023-04-15 19:17:00 37 [facility] Respiratory rate 2023-04-15 19:17:00 16 /min [facility] Body height 2023-04-15 19:17:[address] [facility] Body weight 2023-04-15 19:17:[address] [facility] BMI 2023-04-15 19:17:00 32.50 kg/m2 [facility] Oxygen saturation in Arterial blood by Pulse oximetry 2023-04-15 19:17:00 96 /min [facility] Systolic blood pressure 2023-04-13 22:55:00 132 mm[Hg] [facility] Diastolic blood pressure 2023-04-13 22:55:00 88 mm[Hg] [facility] Heart rate 2023-04-13 22:55:00 81 /min [facility] Body temperature 2023-04-13 22:55:00 37.22 [facility] Respiratory rate 2023-04-13 22:55:00 14 /min [facility] Body height 2023-04-13 22:55:00 154.9 cm [facility] Body weight 2023-04-13 22:55:00 81.647 kg [facility] BMI 2023-04-13 22:55:00 34.01 kg/m2 [facility] Oxygen saturation in Arterial blood by Pulse oximetry 2023-04-13 22:55:00 99 /min [facility] Systolic blood pressure 2023-04-10 02:05:00 139 mm[Hg] [facility] Diastolic blood pressure 2023-04-10 02:05:00 73 mm[Hg] [facility] Heart rate 2023-04-10 02:05:00 87 /min [facility] Body temperature 2023-04-10 02:05:00 37.06 [facility] Respiratory rate 2023-04-10 02:05:00 20 /min [facility] Body height 2023-04-10 02:05:00 154.9 cm [facility] Body weight 2023-04-10 02:05:00 81.647 kg [facility] BMI 2023-04-10 02:05:00 34.01 kg/m2 [facility] Oxygen saturation in Arterial blood by Pulse oximetry 2023-04-10 02:05:00 98 /min [facility] Body height 2023-04-08 20:56:00 154.9 cm [facility] Body weight 2023-04-08 20:56:00 75.297 kg [facility] BMI 2023-04-08 20:56:00 31.37 kg/m2 [facility] Systolic blood pressure 2023-03-26 20:08:00 139 mm[Hg] [facility] Diastolic blood pressure 2023-03-26 20:08:00 72 mm[Hg] [facility] Heart rate 2023-03-26 19:39:00 92 /min [facility] Body height 2023-03-26 19:39:00 154.9 cm [facility] Body weight 2023-03-26 19:39:00 75.66 kg [facility] BMI 2023-03-26 19:39:00 31.52 kg/m2 [facility] Oxygen saturation in Arterial blood by Pulse oximetry 2023-03-26 19:39:00 95 /min [facility] Body weight 2023-02-27 15:35:00 80.74 kg [facility] BMI 2023-02-27 15:35:00 33.63 kg/m2 [facility] Systolic blood pressure 2023-02-24 16:36:00 132 mm[Hg] [facility] Diastolic blood pressure 2023-02-24 16:36:00 85 mm[Hg] [facility] Heart rate 2023-02-24 16:36:00 84 /min [facility] Oxygen saturation in Arterial blood by Pulse oximetry 2023-02-24 16:36:00 96 /min [facility] Body temperature 2023-02-24 16:35:00 37.56 [facility] Body height 2023-02-24 16:35:00 154.9 cm [facility] Body weight 2023-02-24 16:35:00 80.967 kg [facility] BMI 2023-02-24 16:35:00 33.73 kg/m2 [facility] Systolic blood pressure 2023-02-19 15:32:00 153 mm[Hg] [facility] Diastolic blood pressure 2023-02-19 15:32:00 100 mm[Hg] [facility] Heart rate 2023-02-19 15:32:00 87 /min [facility] Body temperature 2023-02-19 15:32:00 37.11 [facility] Respiratory rate 2023-02-19 15:32:00 18 /min [facility] Body weight 2023-02-19 15:32:[address] [facility] BMI 2023-02-19 15:32:00 34.39 kg/m2 [facility] Oxygen saturation in Arterial blood by Pulse oximetry 2023-02-19 15:32:00 99 /min [facility] Systolic blood pressure 2023-02-03 19:38:00 155 mm[Hg] [facility] Diastolic blood pressure 2023-02-03 19:38:00 87 mm[Hg] [facility] Heart rate 2023-02-03 19:38:00 96 /min [facility] Body height 2023-02-03 19:37:00 154.9 cm [facility] Body weight 2023-02-03 19:37:00 82.827 kg [facility] BMI 2023-02-03 19:37:00 34.50 kg/m2 [facility] Oxygen saturation in Arterial blood by Pulse oximetry 2023-02-03 19:37:00 97 /min [facility] Systolic blood pressure 2022-12-30 18:30:00 135 mm[Hg] [facility] Diastolic blood pressure 2022-12-30 18:30:00 85 mm[Hg] [facility] Heart rate 2022-12-30 18:30:00 90 /min [facility] Body height 2022-12-30 18:30:00 154.9 cm [facility] Body weight 2022-12-30 18:30:00 79.878 kg [facility] BMI 2022-12-30 18:30:00 33.27 kg/m2 [facility] Oxygen saturation in Arterial blood by Pulse oximetry 2022-12-30 18:30:00 96 /min [facility] Systolic blood pressure 2022-11-27 19:49:00 144 mm[Hg] [facility] Diastolic blood pressure 2022-11-27 19:49:00 84 mm[Hg] [facility] Heart rate 2022-11-27 19:45:00 91 /min [facility] Body height 2022-11-27 19:45:00 154.9 cm [facility] Body weight 2022-11-27 19:45:00 80.423 kg [facility] BMI 2022-11-27 19:45:00 33.50 kg/m2 [facility] Oxygen saturation in Arterial blood by Pulse oximetry 2022-11-27 19:45:00 98 /min [facility] Systolic blood pressure 2022-10-30 16:59:00 165 mm[Hg] [facility] Diastolic blood pressure 2022-10-30 16:59:00 95 mm[Hg] [facility] Heart rate 2022-10-30 16:59:00 73 /min [facility] Oxygen saturation in Arterial blood by Pulse oximetry 2022-10-30 16:59:00 97 /min [facility] Body temperature 2022-10-30 16:57:00 36.39 [facility] Respiratory rate 2022-10-30 16:57:00 16 /min [facility] Body height 2022-10-30 16:57:[address] [facility] Body weight 2022-10-30 16:57:[address] [facility] BMI 2022-10-30 16:57:00 33.48 kg/m2 [facility] Systolic blood pressure 2022-10-28 19:15:00 205 mm[Hg] [facility] Diastolic blood pressure 2022-10-28 19:15:00 103 mm[Hg] [facility] Heart rate 2022-10-28 19:14:00 89 /min [facility] Body height 2022-10-28 19:14:[address] [facility] Body weight 2022-10-28 19:14:[address] [facility] BMI 2022-10-28 19:14:00 35.14 kg/m2 [facility] Oxygen saturation in Arterial blood by Pulse oximetry 2022-10-28 19:14:00 96 /min [facility] Systolic blood pressure 2022-09-25 18:22:00 178 mm[Hg] [facility] Diastolic blood pressure 2022-09-25 18:22:00 92 mm[Hg] [facility] Heart rate 2022-09-25 18:13:00 92 /min [facility] Body height 2022-09-25 18:13:[address] [facility] Body weight 2022-09-25 18:13:[address] [facility] BMI 2022-09-25 18:13:00 34.01 kg/m2 [facility] Oxygen saturation in Arterial blood by Pulse oximetry 2022-09-25 18:13:00 97 /min [facility] Systolic blood pressure 2022-09-02 19:17:00 140 mm[Hg] [facility] Diastolic blood pressure 2022-09-02 19:17:00 80 mm[Hg] [facility] Heart rate 2022-09-02 19:17:00 106 /min [facility] Body weight 2022-09-02 19:17:[address] [facility] BMI 2022-09-02 19:17:00 30.61 kg/m2 [facility] Oxygen saturation in Arterial blood by Pulse oximetry 2022-09-02 19:17:00 97 /min [facility] Systolic blood pressure 2022-09-01 18:15:00 142 mm[Hg] [facility] Diastolic blood pressure 2022-09-01 18:15:00 71 mm[Hg] [facility] Heart rate 2022-09-01 18:15:00 93 /min [facility] Respiratory rate 2022-09-01 18:15:00 19 /min [facility] Oxygen saturation in Arterial blood by Pulse oximetry 2022-09-01 18:15:00 98 /min [facility] Body temperature 2022-09-01 13:47:00 36.22 [facility] Body weight 2022-09-01 13:47:[address] [facility] BMI 2022-09-01 13:47:00 34.58 kg/m2 [facility] Systolic blood pressure 2022-07-03 20:15:00 156 mm[Hg] [facility] Diastolic blood pressure 2022-07-03 20:15:00 92 mm[Hg] [facility] Heart rate 2022-07-03 20:15:00 96 /min [facility] Body weight 2022-07-03 20:15:[address] [facility] BMI 2022-07-03 20:15:00 34.69 kg/m2 [facility] Oxygen saturation in Arterial blood by Pulse oximetry 2022-07-03 20:15:00 97 /min [place] [facility] Procedures Procedure Date / Time Performed Performing Clinician Source AUTHORIZATION FOR RELEASE OF PHI 2023-10-30 06:01:00 Doctor Unassigned, [place] [facility] CONSENT/REFUSAL FOR DIAGNOSIS AND TREATMENT 2023-09-29 08:23:02 Doctor Unassigned, [place] [facility] ASSIGNMENT OF BENEFITS 2023-09-29 08:22:17 Docto r Unassigned, [place] [facility] MEDICATION CORRESPONDENCE 2023-06-24 05:01:00 Do ctor Unassigned, [place] [facility] POCT URINALYSIS 2023-06-09 18:18:[address] [facility] INSURANCE CORRESPONDENCE 2023-05-30 05:01:00 Doc tor Unassigned, [place] [facility] HIGH RISK HPV-THIN PREP 2023-04-17 16:00:00 Adum, Ju [facility] PAP SMEAR-LIQUID BASED-CP 2023-04-17 16:00:00 Adum, Carol [facility] LAB ONLY PAP SMEAR-LIQUID BASED 2023-04-17 16:00:00 Adum, Ellie [facility] POCT TEST 2023-04-17 00:00:00 Adum, Ellie [facility] POCT URINALYSIS 2023-04-15 19:29:00 Prosper Sims [facility] POCT TEST 2023-04-15 19:28:00 Stephane Snow [facility] ASSIGNMENT OF BENEFITS 2023-04-13 23:45:56 Docto r Unassigned, [place] [facility] URINALYSIS 2023-04-13 23:24:00 Dereck [facility] CONSENT/REFUSAL FOR DIAGNOSIS AND TREATMENT 2023-04-13 22:45:01 Doctor Unassigned, [place] [facility] NOTICE OF PRIVACY PRACTICES 2023-04-10 01:57:37 Doctor Unassigned, [place] [facility] POCT URINALYSIS 2023-02-24 00:00:00 [facility] LUMBAR SPINE 3 VW 2023-02-19 17:37:06 Lydia Andrade [facility] XR KNEE 3 VW LEFT 2023-02-19 17:37:06 Quentin Andrade F [facility] CONSENT/REFUSAL FOR DIAGNOSIS AND TREATMENT 2023-02-19 15:29:06 Doctor Unassigned, [place] [facility] PATIENT FINANCIAL POLICY 2023-02-03 18:57:26 Doctor Unassigned, [place] [facility] MEDICATION CORRESPONDENCE 2022-12-11 06:01:00 Do ctor Unassigned, [place] [facility] MEDICATION CORRESPONDENCE 2022-11-22 06:01:00 Do ctor Unassigned, [place] [facility] CONSENT/REFUSAL FOR DIAGNOSIS AND TREATMENT 2022-09-25 17:57:27 Doctor Unassigned, [place] [facility] EKG-12 LEAD 2022-09-01 18:23:[address] [facility] CT CHEST PULMONARY ANGIOGRAM 2022-09-01 15:45:19 Deidra Meek [facility] XR CHEST 1 VW 2022-09-01 14:40:31 Deidra Meek [facility] URINE DRUG (IMMUNOASSAY) - COMPREHENSIVE DRUG SCREEN W/O REFLEX 2022-09-01 14:23:00 Deidra Meek [facility] LIPASE 2022-09-01 14:22:[address] [facility] MAGNESIUM 2022-09-01 14:22:[address] [facility] TROPONIN I 2022-09-01 14:22:[address] [facility] THYROID STIMULATING HORMONE 2022-09-01 14:22:00 Deidra Meek [facility] COMP. METABOLIC PANEL ([id number]) 2022-09-01 14:22:00 Deidra Meek [facility] ETHANOL 2022-09-01 14:22:[address] [facility] CBC WITH DIFF 2022-09-01 14:22:00 Deidra Meek [facility] D-DIMER 2022-09-01 14:22:[address] [facility] URINALYSIS 2022-09-01 14:22:[address] [facility] N-TERMINAL PRO-BNP 2022-09-01 14:22:00 Deidra Meek [facility] COVID-19 (ID NOW RAPID TESTING) 2022-09-01 14:22:00 Deidra Meek [facility] Encounters Start Date/Time End Date/Time Encounter Type Admission Type Attending [facility] Care Facility Care Department Encounter ID Source 2021-09-25 05:37:23 Emergency [facility] [id number] [facility] 2021-09-24 23:15:39 Emergency [facility] [id number] [facility] 2021-09-24 22:03:21 Emergency [facility] [id number] [facility] 2021-09-24 11:06:58 Emergency [facility] [id number] [facility] 2021-09-23 18:54:33 Emergency [facility] [id number] [facility] 2021-09-23 14:49:00 Emergency [facility] [id number] [facility] 2021-09-21 14:23:37 Emergency [facility] [id number] [facility] 2021-09-21 11:35:45 Emergency [facility] [id number] [facility] 2021-09-21 07:31:33 Emergency [facility] [id number] [facility] 2021-09-21 06:11:19 Emergency [facility] [id number] [facility] 2021-08-10 08:51:00 Inpatient [facility] [id number] [facility] 2021-08-10 08:51:00 Inpatient [facility] [id number] [facility] 2024-08-09 09:00:00 2024-08-09 09:00:00 Outpatient Amador MACKENZIE BECKWITH [facility] [id number] [facility] 2024-03-15 08:45:00 2024-03-15 08:45:00 Outpatient NGHIA MENDES [facility] [id number] [facility] 2024-02-11 00:00:00 2024-02-11 00:00:00 [facility]NA [facility] MEDICAL OFFICE BUILDING 1.2.840.114 350.1.13.10 4.2.7.2.686 [id number] 044 [id number] [facility] 2024-01-14 09:30:00 2024-01-14 10:15:26 Office Visit Nghia Menendez [facility] JERALD?SUSANA [facility] OFF[facility] 1.2.840.114 350.1.13.10 4.2.7.2.686 [id number] [id number] [facility] 2024-01-14 09:30:00 2024-01-14 09:30:00 Outpatient NGHIA MENDES [facility] [id number] [facility] 2023-12-15 09:30:00 2023-12-15 09:45:00 Office Visit Shon Replaced by [facility] JERALD?[facility] MED[facility] OFFICE BUILDING 1.2.840.114 350.1.13.10 4.2.7.2.686 [id number] 044 [id number] [facility] 2023-12-15 09:30:00 2023-12-15 09:30:00 Outpatient NGHIA MENDES [facility] [id number] [facility] 2023-11-12 09:30:00 2023-11-12 09:45:00 Office [facility]?SUSANA [facility] 1.840.114 350.1.13.10 4.2.7.2.686 [id number] [facility] 2023-11-12 09:30:00 2023-11-12 09:30:00 Outpatient R SHON NGHIA [facility] [id number] [facility] 2023-10-30 00:00:00 2023-10-30 00:00:00 Telephone Nghia Menendez [facility] JERALD?SUSANA [facility] MEDICAL OFFICE BUILDING 1.840.114 350.1.13.10 4.2.7.2.686 [id number] [id number] [facility] 2023-10-30 00:00:00 2023-10-30 00:00:00 Orders Only Doctor Unassigned, [place] [facility] 1.84.114 350.1.13.10 4.2.7.2.686 [id number] [facility] 2023-10-10 00:00:00 2023-10-10 00:00:00 [facility] MED[facility] OFF[facility] BU[facility] 1.840.114 350.1.13.10 4.2.7.2.686 [id number] 044 [id number] [facility] 2023-10-09 00:00:00 2023-10-09 00:00:00 Refill [facility] TRAVIS?SUSANA [facility] MEDICAL OFFICE BUILDING 1.840.114 350.1.13.10 4.2.7.2.686 [id number] 044 [id number] [facility] 2023-10-09 00:00:00 2023-10-09 00:00:00 Refill Nghia Menendez [facility] TRAVIS?[facility] MEDICAL OFFICE BUILDING 1.2.840.114 350.1.13.10 4.2.7.2.686 [id number] 044 [id number] [facility] 2023-10-06 00:00:00 2023-10-06 00:00:00 [facility]ill [facility]?S[facility]NA [facility] 1.2.840.114 350.1.13.10 4.2.7.2.686 [id number] 044 [id number] [facility] 2023-10-06 00:00:00 2023-10-06 00:00:00 Refill Shon Nghia [facility] JERALD?[facility] MED[facility] OFF[facility] BUILDING 1.2.840.114 350.1.13.10 4.2.7.2.686 [id number] [id number] [facility] 2023-10-06 00:00:00 2023-10-06 00:00:00 Telephone [facility] 1.2.840.114 350.1.13.10 4.2.7.2.686 [id number] [id number] [facility] 2023-10-02 12:45:00 2023-10-02 13:00:00 Office Visit Nghia Menendez [facility] JERALD?USSANA [facility] MED[facility] OFF[facility] BUILDING 1.2840.114 350.1.13.10 4.2.7.2.686 [id number] 044 [id number] [facility] 2023-10-02 12:45:00 2023-10-02 12:45:00 Outpatient R NGHIA MENENDEZ [facility] [id number] [facility] 2023-09-29 02:16:00 2023-09-29 07:39:00 Emergency Chay Weeks [facility] 1.2.840.114 350.1.13.10 4.2.7.2.686 [id number] [facility] 2023-09-29 02:16:00 2023-09-29 07:39:00 Emergency X CHAY WEEKS [facility] [id number] [facility] 2023-09-19 09:00:00 2023-09-19 09:00:00 Outpatient ALTON VIDES SHIWAN [facility] [id number] [facility] 2023-09-17 10:00:00 2023-09-17 10:00:00 Outpatient Amador MENENDEZ NGHIA [facility] [id number] [facility] 2023-09-16 00:00:00 2023-09-16 00:00:00 Telephone Shon Replaced by [facility] JERALD?[facility] MEDICAL OFFICE BUILDING 1.2.840.114 350.1.13.10 4.2.7.2.686 [id number] 044 [id number] [facility] 2023-09-15 00:00:00 2023-09-15 00:00:00 Telephone Shon Replaced by [facility] JERALD?[facility] MEDICAL OFFICE BUILDING 1.2.840.114 350.1.13.10 4.2.7.2.686 [id number] 044 [id number] [facility] 2023-09-11 00:00:00 2023-09-11 00:00:00 Refill Shon Replaced by [facility] JERALD?[facility] MEDICAL OFFICE BUILDING 1.2.840.114 350.1.13.10 4.2.7.2.686 [id number] 044 [id number] [facility] 2023-09-09 00:00:00 2023-09-09 00:00:00 Telephone Shon Replaced by [facility] JERALD?[facility] MEDICAL OFFICE BUILDING 1.2.840.114 350.1.13.10 4.2.7.2.686 [id number] 044 [id number] [facility] 2023-09-08 00:00:00 2023-09-08 00:00:00 Refill Menendez, [facility]?SUSANA [facility] 1.2.840.114 350.1.13.10 4.2.7.2.686 [id number] 044 [id number] [facility] 2023-09-04 12:00:00 2023-09-04 12:00:00 Outpatient R NGHIA MENENDEZ [facility] [id number] [facility] 2023-09-04 12:00:00 2023-09-04 12:00:00 Office [facility]?S[facility] 1.2.840.114 350.1.13.10 4.2.7.2.686 [id number] 044 [id number] [facility] 2023-09-04 09:30:00 2023-09-04 09:30:00 Outpatient R NGHIA MENENDEZ [facility] [id number] [facility] 2023-09-04 00:00:00 2023-09-04 00:00:00 Telephone Shon Replaced by [facility] JERALD?SUSANA [facility] 1.2.840.114 350.1.13.10 4.2.7.2.686 [id number] 044 [id number] [facility] 2023-08-20 10:00:00 2023-08-20 10:00:00 Outpatient ELLIE BUENROSTRO [facility] [id number] [facility] 2023-08-15 00:00:00 2023-08-15 00:00:00 Refill Shon Replaced by [facility] JERALD?[facility] 1.2.840.114 350.1.13.10 4.2.7.2.686 [id number] 044 [id number] [facility] 2023-08-11 11:00:00 2023-08-11 11:13:55 Outpatient MACKENZIE PAGAN [facility] [id number] [facility] 2023-08-11 11:00:00 2023-08-11 11:13:55 Office Visit Mackenzie Beckwith [facility] NAL BUILDING 1.840.114 350.1.13.10 4.2.7.2.686 [id number] [facility] 2023-08-08 08:00:00 2023-08-08 08:00:00 Outpatient R [facility] [id number] [facility] 2023-08-06 10:00:00 2023-08-06 10:27:52 [facility] [id number] [facility] 2023-08-06 10:00:00 2023-08-06 10:15:00 [facility] OFF[facility] BUILD[facility] 1.84.114 350.1.13.10 4.2.7.2.686 [id number] 044 [id number] [facility] 2023-07-29 08:45:00 2023-07-29 08:45:00 Outpatient R HORNE YARI [facility] [id number] [facility] 2023-07-09 15:00:00 2023-07-09 15:25:34 Outpatient R NGHIA MENENDEZ [facility] [id number] [facility] 2023-07-09 15:00:00 2023-07-09 15:25:34 Office [facility] MEDICAL OFFICE BUILDING 1.84.114 350.1.13.10 4.2.7.2.686 [id number] [id number] [facility] 2023-06-25 00:00:00 2023-06-25 00:00:00 Patient Secure Msg Doctor Unassigned, [place] [facility] 1.84.114 350.1.13.10 4.2.7.2.686 [id number] [facility] 2023-06-24 00:00:00 2023-06-24 00:00:00 Refill Alton Reyes [facility] 1.2.840.114 350.1.13.10 4.2.7.2.686 [id number] [id number] [facility] 2023-06-24 00:00:00 2023-06-24 00:00:00 Orders Only Doctor Unassigned, [place] [facility] 1.2.840.114 350.1.13.10 4.2.7.2.686 [id number] [facility] 2023-06-20 10:00:00 2023-06-20 10:04:10 [facility] [id number] [facility] 2023-06-20 10:00:00 2023-06-20 10:04:10 Office Visit Alton Reyes [facility] 1.2.840.114 350.1.13.10 4.2.7.2.686 [id number] [facility] 2023-06-18 00:00:00 2023-06-18 00:00:00 Patient Secure Msg Doctor Unassigned, [place] [facility] BUILDING 1..840.114 350.1.13.10 4.2.7.2.686 [id number] [facility] 2023-06-16 00:00:00 2023-06-16 00:00:00 Telephone Nghia Menendez [facility] JERALD?SUSANA [facility] MED[facility] OFFICE BUILDING 1.2.840.114 350.1.13.10 4.2.7.2.686 [id number] [id number] [facility] 2023-06-16 00:00:00 2023-06-16 00:00:00 Patient Secure Msg Doctor Unassigned, [place] [facility] 1.2840.114 350.1.13.10 4.2.7.2.686 [id number] [facility] 2023-06-10 00:00:00 2023-06-10 00:00:00 Telephone Shon Replaced by [facility] JERALD?SUSANA [facility] MEDICAL OFFICE BUILDING 1.2840.114 350.1.13.10 4.2.7.2.686 [id number] 044 [id number] [facility] 2023-06-10 00:00:00 2023-06-10 00:00:00 Telephone Nghia Menendez [facility] JERALD?[facility] MED[facility] OFFICE BUILDING 1.2840.114 350.1.13.10 4.2.7.2.686 [id number] 044 [id number] [facility] 2023-06-10 00:00:00 2023-06-10 00:00:00 Patient Secure Msg Doctor Unassigned, [place] [facility] MEDICAL OFFICE BUILDING 1.2840.114 350.1.13.10 4.2.7.2.686 [id number] 044 [id number] [facility] 2023-06-09 12:30:00 2023-06-09 13:25:02 Outpatient R NGHIA MENENDEZ [facility] [id number] [facility] 2023-06-09 12:30:00 2023-06-09 13:25:02 [facility] MEDICAL OFFICE BUILDING 1.2840.114 350.1.13.10 4.2.7.2.686 [id number] [id number] [facility] 2023-05-30 00:00:00 2023-05-30 00:00:00 Orders Only Doctor Unassigned, [place] [facility] 1.2840.114 350.1.13.10 4.2.7.2.686 [id number] [facility] 2023-05-28 00:00:00 2023-05-28 00:00:00 Refirasema MenendezGwenNghia [facility] BUILD[facility] 1.2.840.114 350.1.13.10 4.2.7.2.686 [id number] 044 [id number] [facility] 2023-05-23 00:00:00 2023-05-23 00:00:00 Outpatient R ELLIE DELUCA [facility] [id number] [facility] 2023-05-07 00:00:00 2023-05-07 00:00:00 Telephone Sandrine Ellie Mcleod [facility] 1.2.840.114 350.1.13.10 4.2.7.2.686 [id number] [facility] 2023-04-23 00:00:00 2023-04-23 00:00:00 Outpatient MAMIE MOREJON [facility] [id number] [facility] 2023-04-19 00:00:00 2023-04-19 00:00:00 Telephone Kiera Handy [facility]?SUSANA [facility] MED[facility] OFFICE BUILDING 1.2.840.114 350.1.13.10 4.2.7.2.686 [id number] [facility] 2023-04-17 11:30:00 2023-04-17 11:45:00 Pole Tester Visit 2, Adc Lab AdUnique callian Shani [facility] BUILDING 1.2.840.114 350.1.13.10 4.2.7.2.686 [id number] [facility] 2023-04-17 10:00:00 2023-04-17 11:06:42 Outpatient R ELLIE DELUCA [facility] [id number] [facility] 2023-04-17 10:00:00 2023-04-17 11:06:42 Office Visit Ellie Deluca [facility] PROF[facility] NAL BUILDING 1.2.840.114 350.1.13.10 4.2.7.2.686 [id number] [facility] 2023-04-16 00:00:00 2023-04-16 00:00:00 Patient Outreach Heather Saavedra [facility] MEDICAL OFFICE BUILDING 1.284.114 350.1.13.10 4.2.7.2.686 [id number] [id number] [facility] 2023-04-16 00:00:00 2023-04-16 00:00:00 Telephone Shon Nghia [facility] MEDICAL OFFICE BUILDING 1.284.114 350.1.13.10 4.2.7.2.686 [id number] 044 [id number] [facility] 2023-04-15 14:20:00 2023-04-15 14:40:00 Urgent Care Prosper Sims Unknown, Attending [facility] MEDICAL OFFICE BUILDING 1.84.114 350.1.13.10 4.2.7.2.686 [id number] [facility] 2023-04-15 14:20:00 2023-04-15 14:20:00 Outpatient R PROSPER SIMS [facility] [id number] [facility] 2023-04-13 17:56:00 2023-04-13 19:44:00 Emergency X DERECK JOHNSON DERECK [facility] E[facility] [id number] [facility] 2023-04-13 17:56:00 2023-04-13 19:44:00 Emergency Dereck Johnson [facility] 1.2840.114 350.1.13.10 4.2.7.2.686 [id number] [facility] 2023-04-09 21:07:00 2023-04-09 21:49:[address] [facility] [id number] [facility] 2023-04-09 21:07:00 2023-04-09 21:49:00 Emergency [facility] 1.2.840.114 350.1.13.10 4.2.7.2.686 [id number] [facility] 2023-04-09 00:00:00 2023-04-09 00:00:00 Telephone [facility] MEDICAL OFFICE BUILDING 1.2.840.114 350.1.13.10 4.2.7.2.686 [id number] 044 [id number] [facility] 2023-04-08 16:05:00 2023-04-08 23:59:00 Outpatient R MAMIE BARBOZA [facility] [id number] [facility] 2023-04-08 15:45:00 2023-04-08 16:00:00 Office Visit Mamie Barboza [facility] MEDICAL OFFICE BUILDING 1.2840.114 350.1.13.10 4.2.7.2.686 [id number] [facility] 2023-03-28 00:00:00 2023-03-28 00:00:00 Telephone Nghia Menendez [facility] PROFESS[facility] NAL BUILDING 1.2.840.114 350.1.13.10 4.2.7.2.686 [id number] 044 [id number] [facility] 2023-03-28 00:00:00 2023-03-28 00:00:00 Telephone Shon Replaced by [facility] JERALD?[facility] MEDICAL OFFICE BUILDING 1.2.840.114 350.1.13.10 4.2.7.2.686 [id number] [id number] [facility] 2023-03-27 09:30:00 2023-03-27 09:30:00 Outpatient R NGHIA MENENDEZ [facility] [id number] [facility] 2023-03-26 15:00:00 2023-03-26 15:15:00 [facility]NA [facility] MEDICAL OFFICE BUILDING 1.2840.114 350.1.13.10 4.2.7.2.686 [id number] [facility] 2023-03-26 15:00:00 2023-03-26 15:00:00 Outpatient R NGHIA MENENDEZ [facility] [id number] [facility] 2023-03-26 08:30:00 2023-03-26 08:30:00 Outpatient NGHIA MENDES [facility] [id number] [facility] 2023-03-20 07:30:00 2023-03-20 07:30:00 Outpatient R NGHIA MENENDEZ [facility] [id number] [facility] 2023-03-17 00:00:00 2023-03-17 00:00:00 Telephone Shon Replaced by [facility] JERALD?[facility] MEDICAL OFFICE BUILDING 1.2840.114 350.1.13.10 4.2.7.2.686 [id number] 044 [id number] [facility] 2023-03-05 00:00:00 2023-03-05 00:00:00 Telephone Nghia Menendez [facility] JERALD?[facility] MEDICAL OFFICE BUILDING 1.840.114 350.1.13.10 4.2.7.2.686 [id number] [id number] [facility] 2023-03-05 00:00:00 2023-03-05 00:00:00 [facility]phone [facility] MED[facility] OFFICE BUILDING 1.2840.114 350.1.13.10 4.2.7.2.686 [id number] 044 [id number] [facility] 2023-03-03 00:00:00 2023-03-03 00:00:00 Refill Nghia Menendez [facility]?SUSANA [facility] MEDICAL OFFICE BUILDING 1..840.114 350.1.13.10 4.2.7.2.686 [id number] 044 [id number] [facility] 2023-02-28 00:00:00 2023-02-28 00:00:00 Refill Shon [facility] MEDICAL OFFICE BUILDING 1..840.114 350.1.13.10 4.2.7.2.686 [id number] [id number] [facility] 2023-02-27 10:30:00 2023-02-27 12:21:16 Outpatient CHONG BURTON [facility] [id number] [facility] 2023-02-27 10:30:00 2023-02-27 12:21:16 Office Visit [facility] MEDICAL OFFICE BUILDING 1..840.114 350.1.13.10 4.2.7.2.686 [id number] [facility] 2023-02-24 12:15:00 2023-02-24 12:15:00 Outpatient NGHIA MENDES [facility] [id number] [facility] 2023-02-24 11:30:00 2023-02-24 12:04:36 Outpatient R NGHIA MENENDEZ [facility] [id number] [facility] 2023-02-24 11:30:00 2023-02-24 12:04:36 Office Visit Shon Nghia [facility] JERALD?[facility] MEDICAL OFFICE BUILDING 1..840.114 350.1.13.10 4.2.7.2.686 [id number] [id number] [facility] 2023-02-19 10:33:00 2023-02-19 14:10:00 Emergency X SANDRA ANDRADE [facility] [id number] [facility] 2023-02-19 10:33:00 2023-02-19 14:10:00 Emergency Sandra Andrade F [facility] 1.840.114 350.1.13.10 4.2.7.2.686 [id number] [facility] 2023-02-07 08:15:00 2023-02-07 08:30:00 Pole Tester Visit Lab, Vipin Menendez [facility] 1.84.114 350.1.13.10 4.2.7.2.686 [id number] [facility] 2023-02-07 08:15:00 2023-02-07 08:15:00 Outpatient NGHIA MENDES [facility] [id number] [facility] 2023-02-04 09:45:00 2023-02-04 09:45:00 Outpatient NGHIA MENDES [facility] [id number] [facility] 2023-02-03 14:00:00 2023-02-03 14:15:00 Office Visit Shon [facility] 1.84.114 350.1.13.10 4.2.7.2.686 [id number] [facility] 2023-02-03 14:00:00 2023-02-03 14:00:00 Outpatient NGHIA MENDES [facility] [id number] [facility] 2023-02-03 00:00:00 2023-02-03 00:00:00 Orders Only Doctor Unassigned, [place] [facility] 1.840.114 350.1.13.10 4.2.7.2.686 [id number] [facility] 2023-01-28 00:00:00 2023-01-28 00:00:00 [facility] 1.2.840.114 350.1.13.10 4.2.7.2.686 [id number] [facility] 2023-01-02 00:00:00 2023-01-02 00:00:00 Telephone Nghia Menendez [facility] JERALD?[facility] 1.2.840.114 350.1.13.10 4.2.7.2.686 [id number] [facility] 2022-12-31 00:00:00 2022-12-31 00:00:00 Refill Nghia Menendez [facility] JERALD?[facility] 1..840.114 350.1.13.10 4.2.7.2.686 [id number] [facility] 2022-12-30 12:30:00 2022-12-30 12:45:00 Office Visit Nghia Menendez [facility] JERALD?[facility] 1.2.840.114 350.1.13.10 4.2.7.2.686 [id number] [facility] 2022-12-30 12:30:00 2022-12-30 12:30:00 Outpatient R SHON NGHIA [facility] [id number] [facility] 2022-12-18 00:00:00 2022-12-18 00:00:00 Telephone Shon Replaced by [facility] JERALD?[facility] 1.2.840.114 350.1.13.10 4.2.7.2.686 [id number] [facility] 2022-12-11 00:00:00 2022-12-11 00:00:00 Orders Only Doctor Unassigned, [place] [facility] 1.2.840.114 350.1.13.10 4.2.7.2.686 [id number] [facility] 2022-12-10 15:00:00 2022-12-10 15:00:00 Outpatient R MEAGHAN JACOBO [facility] [id number] [facility] 2022-11-28 13:00:00 2022-11-28 13:00:00 Outpatient R NGHIA MENENDEZ [facility] [id number] [facility] 2022-11-27 13:45:00 2022-11-27 14:14:10 Outpatient R NGHIA MENENDEZ [facility] [id number] [facility] 2022-11-27 13:45:00 2022-11-27 14:00:00 Office Visit Shon [facility] 1.2.840.114 350.1.13.10 4.2.7.2.686 [id number] [facility] 2022-11-25 00:00:00 2022-11-25 00:00:00 Telephone Shon [facility] 1.2.840.114 350.1.13.10 4.2.7.2.686 [id number] 044 [id number] [facility] 2022-11-22 00:00:00 2022-11-22 00:00:00 Orders Only Doctor Unassigned, [place] [facility] 1.2.840.114 350.1.13.10 4.2.7.2.686 [id number] [id number] [facility] 2022-11-12 00:00:00 2022-11-12 00:00:00 [facility] [id number] 2022-10-30 10:20:00 2022-10-30 11:17:22 [id number] 2022-10-30 10:20:00 2022-10-30 11:17:22 [facility] 1.2.840.114 350.1.13.10 4.2.7.2.686 [id number] [facility] 2022-10-28 13:15:00 2022-10-28 13:32:14 Outpatient NGHIA MENDES [facility] [id number] [facility] 2022-10-28 13:15:00 2022-10-28 13:30:00 Office Visit Shon [facility] OFFICE BUILDING 1.2.840.114 350.1.13.10 4.2.7.2.686 [id number] 044 [id number] [facility] 2022-10-01 00:00:00 2022-10-01 00:00:00 Telephone Heather Saavedra [facility] MED[facility] OFF[facility] 1..840.114 350.1.13.10 4.2.7.2.686 [id number] 044 [id number] [facility] 2022-09-26 00:00:00 2022-09-26 00:00:00 Patient Outreach Heather Saavedra [facility] MED[facility] OFF[facility] BU[facility] 1..840.114 350.1.13.10 4.2.7.2.686 [id number] 044 [id number] [facility] 2022-09-25 13:00:00 2022-09-25 13:15:00 Office Visit [facility] 1.2.840.114 350.1.13.10 4.2.7.2.686 [id number] [id number] [facility] 2022-09-25 13:00:00 2022-09-25 13:00:00 Outpatient NGHIA MENDES [facility] [id number] [facility] 2022-09-25 00:00:00 2022-09-25 00:00:00 Orders Only Doctor Unassigned, [place] [facility] 1.2.840.114 350.1.13.10 4.2.7.2.686 [id number] [facility] 2022-09-02 14:00:00 2022-09-02 14:26:56 Outpatient NGHIA MENDES [facility] [id number] [facility] 2022-09-02 14:00:00 2022-09-02 14:15:00 Office Visit Shon [facility] MEDICAL OFFICE BUILDING 1.2.840.114 350.1.13.10 4.2.7.2.686 [id number] 044 [id number] [facility] 2022-09-02 00:00:00 2022-09-02 00:00:00 Telephone Shon [facility] MED[facility] OFF[facility] BUILD[facility] 1.2.840.114 350.1.13.10 4.2.7.2.686 [id number] [id number] [facility] 2022-09-01 08:47:00 2022-09-01 14:18:00 Emergency X DEIDRA MEEK [facility] [id number] [facility] 2022-09-01 08:47:00 2022-09-01 14:18:00 Emergency Martystorm Deidra G [facility] 1.2.840.114 350.1.13.10 4.2.7.2.686 [id number] [id number] [facility] 2022-08-21 15:00:00 2022-08-21 15:00:00 Outpatient RUTHIE THACKER [facility] [id number] [facility] 2022-08-06 00:00:00 2022-08-06 00:00:00 [facility] 1..840.114 350.1.13.10 4.2.7.2.686 [id number] 044 [id number] [facility] 2022-07-03 15:15:00 2022-07-03 15:52:50 [facility] [id number] [facility] 2022-07-03 15:15:00 2022-07-03 15:30:00 [facility] KONG [facility] OFF[facility] 1.840.114 350.1.13.10 4.2.7.2.686 [id number] 044 [id number] [facility] 2022-07-03 15:15:00 2022-07-03 15:15:00 Outpatient R NGHIA MENENDEZ [facility] [id number] [facility] 2022-07-03 00:00:00 2022-07-03 00:00:00 Patient Secure Msg Doctor Unassigned, [place] [facility] 1.840.114 350.1.13.10 4.2.7.2.686 [id number] [facility] 2022-06-28 00:00:00 2022-06-28 00:00:00 Patient Secure Msg Doctor Unassigned, [place] [facility] 1.84.114 350.1.13.10 4.2.7.2.686 [id number] [id number] [facility] 2022-06-26 08:47:07 2022-06-26 23:59:00 Hospital Encounter Layne Weir [facility] 1..114 350.1.13.10 4.2.7.2.686 [id number] [facility] 2022-06-26 08:46:05 2022-06-26 08:46:00 Outpatient R LAYNE WEIR [facility] [id number] [facility] 2022-06-26 08:30:00 2022-06-26 08:46:00 Hospital Encounter Dangelo, [facility] 1.114 350.1.13.10 4.2.7.2.686 [id number] [facility] 2022-06-18 00:00:00 2022-06-18 00:00:00 Case Management Dangelo [facility] 1.114 350.1.13.10 4.2.7.2.686 [id number] [id number] [facility] 2022-06-11 00:00:00 2022-06-11 00:00:00 Telephone Ruthie Haney [facility] 1.114 350.1.13.10 4.2.7.2.686 [id number] [id number] [facility] 2022-06-10 11:03:40 2022-06-10 23:59:00 Outpatient R ISABELLE PRECIADO [facility] [id number] Ravi dougherty [facility] 2022-06-10 10:00:00 2022-06-10 23:59:00 Hospital Encounter Isabelle Preciado [facility] 1.114 350.1.13.10 4.2.7.2.686 [id number] [id number] [facility] 2022-06-06 00:00:00 2022-06-06 00:00:00 Case Management Mikael Shafer [facility] 1.114 350.1.13.10 4.2.7.2.686 [id number] [facility] 2022-06-05 09:46:00 2022-06-05 13:39:00 Emergency X GURU MEZA [facility] [id number] [facility] 2022-06-05 09:46:00 2022-06-05 13:39:00 Emergency Guru Meza [facility] 1.2.840.114 350.1.13.10 4.2.7.2.686 [id number] [id number] [facility] 2022-04-05 00:00:00 2022-04-05 00:00:00 Telephone MedinaRuthie [facility]NA [facility] MEDICAL OFFICE BUILDING 1.2840.114 350.1.13.10 4.2.7.2.686 [id number] [facility] 2022-04-02 00:00:00 2022-04-02 00:00:00 Refill MedinaRuthie [facility] MEDICAL OFFICE BUILDING 1.2840.114 350.1.13.10 4.2.7.2.686 [id number] [facility] 2022-03-28 00:00:00 2022-03-28 00:00:00 Orders Only Doctor Unassigned, [place] [facility] 1.2840.114 350.1.13.10 4.2.7.2.686 [id number] [facility] 2022-03-27 00:00:00 2022-03-27 00:00:00 Telephone MedinaRuthie [facility] MEDICAL OFFICE BUILDING 1.2840.114 350.1.13.10 4.2.7.2.686 [id number] 044 [id number] [facility] 2022-03-14 11:15:00 2022-03-14 11:30:00 Office [facility] MEDICAL OFFICE BUILDING 1.2840.114 350.1.13.10 4.2.7.2.686 [id number] [facility] 2022-03-14 11:15:00 2022-03-14 11:15:00 Outpatient R MAMIE BARBOZA [facility] [id number] [facility] 2022-03-14 11:15:00 2022-03-14 11:15:00 Outpatient Amador MAMIE BARBOZA [facility] [id number] [facility] 2022-03-13 09:00:00 2022-03-13 09:00:00 Outpatient R ROSY FLOWERS [facility] [id number] [facility] 2022-03-13 09:00:00 2022-03-13 09:00:00 Outpatient R ROSY FLOWERS [facility] [id number] [facility] 2022-03-13 00:00:00 2022-03-13 00:00:00 Telephone [facility]ong [facility] OFF[facility] 1.840.114 350.1.13.10 4.2.7.2.686 [id number] [facility] 2022-03-11 00:00:00 2022-03-11 00:00:00 Orders Only Doctor Unassigned, [place] [facility] 1.2840.114 350.1.13.10 4.2.7.2.686 [id number] [facility] 2022-03-07 00:00:00 2022-03-07 00:00:00 Telephone Chong Bailey [facility] MED[facility] OFFICE BUILDING 1..840.114 350.1.13.10 4.2.7.2.686 [id number] 198 [id number] [facility] 2022-03-06 00:00:00 2022-03-06 00:00:00 Telephone Mamie Barboza [facility]NA [facility] MEDICAL OFFICE BUILDING 1.2840.114 350.1.13.10 4.2.7.2.686 [id number] 198 [id number] [facility] 2022-03-06 00:00:00 2022-03-06 00:00:00 Telephone Chong [facility] MED[facility] OFF[facility] BUILDING 1.284.114 350.1.13.10 4.2.7.2.686 [id number] 198 [id number] [facility] 2022-03-01 00:00:00 2022-03-01 00:00:00 Telephone Ruthie Haney [facility] MEDICAL OFFICE BUILDING 1.84.114 350.1.13.10 4.2.7.2.686 [id number] [facility] 2022-02-28 00:00:00 2022-02-28 00:00:00 Telephone Chong [facility] MED[facility] OFF[facility] BUILD[facility] 1.840.114 350.1.13.10 4.2.7.2.686 [id number] [facility] 2022-02-27 00:00:00 2022-02-27 00:00:00 Outpatient R CHONG BAILEY [facility] [id number] [facility] 2022-02-27 00:00:00 2022-02-27 00:00:00 Orders Only Doctor Unassigned, [place] [facility] 1.84.114 350.1.13.10 4.2.7.2.686 [id number] [id number] [facility] 2022-02-26 00:00:00 2022-02-26 00:00:00 Telephone Bailey, Chong L [facility] MED[facility] OFFICE BUILDING 1.84.114 350.1.13.10 4.2.7.2.686 [id number] [facility] 2022-02-20 10:27:42 2022-02-20 23:59:00 Outpatient R CHONG BAILEY [facility] [id number] [facility] 2022-02-20 10:27:42 2022-02-20 23:59:00 Hospital Encounter Chong Bailey [facility] 1.2.840.114 350.1.13.10 4.2.7.2.686 [id number] [facility] 2022-02-20 11:15:00 2022-02-20 11:30:00 Pole Tester Visit Pob, Adc Lab Main Chong Bailey [facility] PROFESS[facility] NAL BUILDING 1..840.114 350.1.13.10 4.2.7.2.686 [id number] [facility] 2022-02-20 00:00:00 2022-02-20 00:00:00 Telephone Chong Bailey [facility] MED[facility] OFFICE BUILDING 1..840.114 350.1.13.10 4.2.7.2.686 [id number] 198 [id number] [facility] 2022-02-20 00:00:00 2022-02-20 00:00:00 Orders Only Doctor Unassigned, [place] [facility] 1.2.840.114 350.1.13.10 4.2.7.2.686 [id number] [facility] 2022-02-18 14:30:00 2022-02-18 14:26:49 Outpatient R CHONG BAILEY [facility] [id number] [facility] 2022-02-18 00:00:00 2022-02-18 00:00:00 Telephone Chong [facility] MEDICAL OFFICE BUILDING 1.2.840.114 350.1.13.10 4.2.7.2.686 [id number] [facility] 2022-02-11 00:00:00 2022-02-11 00:00:00 Telephone Ruthie Haney [facility] MEDICAL OFFICE BUILDING 1.2.840.114 350.1.13.10 4.2.7.2.686 [id number] [facility] 2022-02-01 00:00:00 2022-02-01 00:00:00 Telephone Bailey Chong Mcleod [facility] MEDICAL OFFICE BUILDING 1.2840.114 350.1.13.10 4.2.7.2.686 [id number] [facility] 2022-01-31 09:28:33 2022-01-31 23:59:00 Outpatient R CHONG BAILEY [facility] [id number] [facility] 2022-01-31 09:28:33 2022-01-31 23:59:00 Hospital Encounter Chong Bailey [facility] 1.2840.114 350.1.13.10 4.2.7.2.686 [id number] [id number] [facility] 2022-01-30 00:00:00 2022-01-30 00:00:00 Orders Only Doctor Unassigned, [place] [facility] 1.2840.114 350.1.13.10 4.2.7.2.686 [id number] [facility] 2022-01-27 21:17:00 2022-01-27 23:49:00 Emergency X SANDRA ANDRADE [facility] E[facility] [id number] [facility] 2022-01-27 21:17:00 2022-01-27 23:49:00 Emergency Sandra Andrade F [facility] 1.2840.114 350.1.13.10 4.2.7.2.686 [id number] [id number] [facility] 2022-01-24 00:00:00 2022-01-24 00:00:00 Telephone Chong Bailey [facility] MED[facility] OFF[facility] BUILD[facility] 1.114 350.1.13.10 4.2.7.2.686 [id number] 198 [id number] [facility] 2022-01-11 00:00:00 2022-01-11 00:00:00 Telephone Chong Bailey [facility] 1.0.114 350.1.13.10 4.2.7.2.686 [id number] [facility] 2022-01-10 12:24:00 2022-01-10 13:44:00 Emergency X REKHA CHAU [facility] E[facility] [id number] [facility] 2022-01-10 12:24:00 2022-01-10 13:44:00 Emergency Rekha Chau [facility] 1..114 350.1.13.10 4.2.7.2.686 [id number] [id number] [facility] 2022-01-10 00:00:00 2022-01-10 00:00:00 Patient Secure Msg Doctor Unassigned, [place] [facility] 1..114 350.1.13.10 4.2.7.2.686 [id number] [facility] 2022-01-07 14:55:00 2022-01-07 23:59:00 Hospital Encounter Chong Bailey [facility] OFF[facility] 1.114 350.1.13.10 4.2.7.2.686 [id number] [facility] 2022-01-07 17:40:00 2022-01-07 18:00:00 Urgent Care Provider, [facility] Neli Baron [facility] MEDICAL OFFICE BUILDING 1.114 350.1.13.10 4.2.7.2.686 [id number] [facility] 2022-01-07 16:00:00 2022-01-07 16:00:00 Office Visit Bailey, Chong Shani [facility]NA [facility] MEDICAL OFFICE BUILDING 1..840.114 350.1.13.10 4.2.7.2.686 [id number] [facility] 2022-01-07 16:00:00 2022-01-07 15:12:51 Outpatient R BAILEY, CHONG [facility] [id number] [facility] 2022-01-07 16:00:00 2022-01-07 15:12:51 Outpatient R BAILEY CHONG [facility] [id number] [facility] 2022-01-07 00:00:00 2022-01-07 00:00:00 Telephone Ruthie Haney Gloria [facility] MEDICAL OFFICE BUILDING 1..840.114 350.1.13.10 4.2.7.2.686 [id number] [facility] 2022-01-03 00:00:00 2022-01-03 00:00:00 Outpatient ROSY CARLSON [facility] [id number] [facility] 2021-11-29 14:00:00 2021-11-29 14:00:00 Outpatient ROSY CARLSON [facility] [id number] [facility] 2021-11-20 00:00:00 2021-11-20 00:00:00 Telephone Ruthie Haney [facility] MEDICAL OFFICE BUILDING 1..840.114 350.1.13.10 4.2.7.2.686 [id number] [id number] [facility] 2021-11-12 00:00:00 2021-11-12 00:00:00 Telephone Chong Bailey [facility] MEDICAL OFFICE BUILDING 1..840.114 350.1.13.10 4.2.7.2.686 [id number] [facility] 2021-11-09 09:00:00 2021-11-09 09:00:00 Outpatient CHONG BURTON [facility] [id number] [facility] 2021-11-06 00:00:00 2021-11-06 00:00:00 Refill Mamie [facility]bo[facility] 1.840.114 350.1.13.10 4.2.7.2.686 [id number] [facility] 2021-11-06 00:00:00 2021-11-06 00:00:00 Refill Doctor Unassigned, [place] [facility] 1..840.114 350.1.13.10 4.2.7.2.686 [id number] [facility] 2021-11-05 15:54:00 2021-11-05 20:33:00 Emergency X DEIDRA MEEK [facility] E[facility] [id number] [facility] 2021-11-05 15:54:00 2021-11-05 20:33:00 Emergency Deidra Meek G [facility] 1..84.114 350.1.13.10 4.2.7.2.686 [id number] [id number] [facility] 2021-11-01 00:00:00 2021-11-01 00:00:00 Telephone Tamra Mamie [facility] OFF[facility] BUILD[facility] 1..84.114 350.1.13.10 4.2.7.2.686 [id number] 198 [id number] [facility] 2021-10-31 14:00:00 2021-10-31 14:00:00 Outpatient ROSY CARLSON [facility] [id number] [facility] 2021-10-22 00:00:00 2021-10-22 00:00:00 Refill Rosy Flowers [facility] BUILD[facility] 1.2.840.114 350.1.13.10 4.2.7.2.686 [id number] [facility] 2021-10-17 00:00:00 2021-10-17 00:00:00 Telephone Rosy Flowers [facility] 1.2.840.114 350.1.13.10 4.2.7.2.686 [id number] 059 [id number] [facility] 2021-10-11 00:00:00 2021-10-11 00:00:00 Telephone [facility] 1.2.840.114 350.1.13.10 4.2.7.2.686 [id number] 198 [id number] [facility] 2021-10-04 10:45:44 2021-10-04 23:59:00 Hospital Encounter Rosy Flowers [facility] 1.2.840.114 350.1.13.10 4.2.7.2.686 [id number] [facility] 2021-10-04 10:30:00 2021-10-04 10:58:26 Outpatient R ROSY FLOWERS [facility] [id number] [facility] 2021-10-04 10:30:00 2021-10-04 10:58:26 Outpatient R ROSY FLOWERS [facility] [id number] [facility] 2021-10-04 10:11:17 2021-10-04 10:58:26 Office Visit Rosy Flowers [facility] 1.2.840.114 350.1.13.10 4.2.7.2.686 [id number] [facility] 2021-10-03 14:00:00 2021-10-03 14:23:38 Outpatient R MAMIE BARBOZA [facility] [id number] [facility] 2021-10-03 14:00:00 2021-10-03 14:23:38 [facility] [id number] [facility] 2021-10-03 14:00:00 2021-10-03 14:23:38 Outpatient R TAMRA [facility] [id number] [facility] 2021-10-03 13:57:05 2021-10-03 14:23:38 Office Visit [facility] MEDICAL OFFICE BUILDING 1.2.840.114 350.1.13.10 4.2.7.2.686 [id number] [facility] 2021-10-01 00:00:00 2021-10-01 00:00:00 Telephone Tamra [facility] MEDICAL OFFICE BUILDING 1.2.840.114 350.1.13.10 4.2.7.2.686 [id number] [facility] 2021-09-27 13:30:00 2021-09-27 13:30:00 Outpatient R ROSY FLOWERS [facility] [id number] [facility] 2021-09-27 13:30:00 2021-09-27 13:30:00 Outpatient R ROSY FLOWERS [facility] [id number] [facility] 2021-09-25 10:12:06 2021-09-25 23:59:00 Outpatient R TAMRA MAMIE [facility] [id number] [facility] 2021-09-25 10:12:06 2021-09-25 23:59:00 Hospital Encounter Tamra Mamie [facility] 1..840.114 350.1.13.10 4.2.7.2.686 [id number] [facility] 2021-09-25 10:12:06 2021-09-25 23:59:00 Outpatient R MAMIE BARBOZA [facility] [id number] [facility] 2021-09-25 00:00:00 2021-09-25 00:00:00 Orders Only Doctor Unassigned, [place] [facility] 1.20.114 350.1.13.10 4.2.7.2.686 [id number] [facility] 2021-09-25 00:00:00 2021-09-25 00:00:00 Telephone Ruthie Haney [facility] MEDICAL OFFICE BUILDING 1.84.114 350.1.13.10 4.2.7.2.686 [id number] [id number] [facility] 2021-09-19 00:00:00 2021-09-19 00:00:00 Telephone Mamie Barboza [facility] J[facility] Medical Office Building 1.84114 350.1.13.10 4.2.7.2.686 [id number] [facility] 2021-09-18 00:00:00 2021-09-18 00:00:00 Patient Secure Msg Doctor Unassigned, [place] [facility] 1.2114 350.1.13.10 4.2.7.2.686 [id number] [facility] 2021-09-15 00:00:00 2021-09-15 00:00:00 Telephone Ruthie Haney [facility], [facility] Jerald?[facility] 1.284114 350.1.13.10 4.2.7.2.686 [id number] [facility] 2021-09-13 13:21:54 2021-09-13 13:51:54 Office Visit Mamie Barboza [facility]?Susana farias [facility] 1..840.114 350.1.13.10 4.2.7.2.686 [id number] [facility] 2021-09-13 13:15:00 2021-09-13 13:49:15 Outpatient R TAMRA [facility] [id number] [facility] 2021-09-13 13:15:00 2021-09-13 13:49:15 Outpatient R TAMRA [facility] [id number] [facility] 2021-09-13 13:15:00 2021-09-13 13:49:15 Outpatient R TAMRA [facility] [id number] [facility] 2021-09-13 00:00:00 2021-09-13 00:00:[address] [facility]?Susana farias [facility] 1..840.114 350.1.13.10 4.2.7.2.686 [id number] [facility] 2021-09-11 09:59:00 2021-09-11 11:16:00 Emergency Guru [facility] 1..840.114 350.1.13.10 4.2.7.2.686 [id number] [facility] 2021-09-11 09:59:00 2021-09-11 11:16:00 Emergency X GURU MEZA [facility] [id number] [facility] 2021-09-11 09:59:00 2021-09-11 11:16:00 Emergency X GURU MEZA [facility] [id number] [facility] 2021-09-10 00:00:00 2021-09-10 00:00:00 Patient Secure Msg Doctor Unassigned, [place] [facility] 1..840.114 350.1.13.10 4.2.7.2.686 [id number] [facility] 2021-09-05 11:55:00 2021-09-05 14:02:00 Emergency Guru [facility] 1.2.840.114 350.1.13.10 4.2.7.2.686 [id number] [facility] 2021-09-05 09:17:56 2021-09-05 09:32:56 Pole Tester Visit Lab, [place] - Ruthie May Gloria [facility] 1..840.114 350..13.10 4.2.7.2.686 [id number] [facility] 2021-09-05 08:00:00 2021-09-05 09:16:46 Outpatient R RUTHIE HANEY [facility] [id number] [facility] 2021-09-05 08:00:00 2021-09-05 09:16:46 Outpatient R RUTHIE HANEY [facility] [id number] [facility] 2021-09-05 08:00:00 2021-09-05 09:16:46 Outpatient R MEDINA RUTHIE [facility] [id number] [facility] 2021-09-05 07:55:15 2021-09-05 09:16:46 Office Visit Medina Ruthie A [facility] 1..840.114 350.1.13.10 4.2.7.2.686 [id number] [facility] 2021-09-05 08:00:00 2021-09-05 08:00:00 Outpatient R MEDINARUTHIE [facility] [id number] [facility] 2021-09-05 00:00:00 2021-09-05 00:00:00 Orders Only Doctor Unassigned, [place] [facility] 1.2.840.114 350.1.13.10 4.2.7.2.686 [id number] [facility] 2021-09-03 02:02:00 2021-09-03 02:31:00 Emergency X LINDA DEGROOT [facility] [id number] [facility] 2021-08-31 11:17:00 2021-08-31 11:30:00 Emergency [facility] 1.2.840.114 350.1.13.10 4.2.7.2.686 [id number] [facility] 2021-08-31 11:17:00 2021-08-31 11:30:00 Emergency X GURU [facility] [id number] [facility] 2021-08-31 11:17:00 2021-08-31 11:30:00 Emergency X MEZAGURU [facility] [id number] [facility] 2021-08-30 10:17:00 2021-08-30 12:25:00 Emergency [facility] 1.2.840.114 350.1.13.10 4.2.7.2.686 [id number] [facility] 2021-08-30 10:17:00 2021-08-30 12:25:00 Emergency X BAILEYTIMOTHY [facility] [id number] [facility] 2021-08-30 10:17:00 2021-08-30 12:25:00 Emergency X TIMOTHY BAILEY [facility] [id number] [facility] 2021-08-26 12:18:00 2021-08-26 12:26:00 Emergency Prosper Sims [facility] 1.2.840.114 350.1.13.10 4.2.7.2.686 [id number] 084 [id number] [facility] 2021-08-26 12:18:00 2021-08-26 12:26:00 Emergency X LINDA DEGROOT [facility] E[facility] [id number] [facility] 2021-08-26 12:18:00 2021-08-26 12:26:00 Emergency X LINDA DEGROOT [facility] E[facility] [id number] [facility] 2021-08-26 12:18:00 2021-08-26 12:26:00 Emergency X LINDA DEGROOT [facility] ERT [id number] [facility] 2021-08-23 14:09:00 2021-08-23 14:43:00 Emergency Linda [facility] 1.2.840.114 350.1.13.10 4.2.7.2.686 [id number] 084 [id number] [facility] 2021-08-23 14:09:00 2021-08-23 14:43:00 Emergency X LINDA DEGROOT [facility] E[facility] [id number] [facility] 2021-08-23 14:09:00 2021-08-23 14:43:00 Emergency X LINDA DEGROOT [facility] E[facility] [id number] [facility] 2021-08-09 20:23:00 2021-08-09 21:57:00 Emergency Meghan [facility] 1.2.840.114 350.1.13.10 4.2.7.2.686 [id number] 084 [id number] [facility] 2021-08-09 16:53:00 2021-08-09 17:40:00 Emergency X [facility] E[facility] [id number] [facility] 2021-08-09 16:53:00 2021-08-09 17:40:00 Emergency [facility] 1.2.840.114 350.1.13.10 4.2.7.2.686 [id number] [facility] 2021-08-09 16:53:00 2021-08-09 17:40:00 Emergency X [facility] ERT [id number] [facility] 2021-08-05 01:08:00 2021-08-05 04:43:00 Emergency Rekha Chau [facility] 1.2.840.114 350.1.13.10 4.2.7.2.686 [id number] 084 [id number] [facility] 2021-08-05 01:08:00 2021-08-05 04:43:00 Emergency X REGIS CORTEZ [facility] ERT [id number] [facility] 2021-06-24 12:31:00 2021-06-24 14:00:00 Emergency Janet Love [facility] 1.2.840.114 350.1.13.10 4.2.7.2.686 [id number] 084 [id number] [facility] 2021-06-24 12:31:00 2021-06-24 14:00:00 Emergency X Janet LOVE [facility] ERT [id number] [facility] 2021-06-24 12:31:00 2021-06-24 14:00:00 Emergency X Janet LOVE [facility] ERT [id number] [facility] 2021-06-19 11:32:00 2021-06-19 14:24:00 Emergency [facility] 1.2.840.114 350.1.13.10 4.2.7.2.686 [id number] 084 [id number] [facility] 2021-06-19 11:32:00 2021-06-19 14:24:00 Emergency X CRISTA WEEKSYA [facility] E[facility] [id number] [facility] 2021-06-02 12:03:00 2021-06-02 12:24:00 Emergency Barry [facility] 1.2.840.114 350.1.13.10 4.2.7.2.686 [id number] 084 [id number] [facility] 2021-06-02 12:03:00 2021-06-02 12:24:00 Emergency X BARRY GOMEZ [facility] E[facility] [id number] [facility] 2021-06-02 12:03:00 2021-06-02 12:24:00 Emergency X BARRY GOMEZ [facility] ERT [id number] [facility] 2021-05-22 09:22:00 2021-05-22 10:24:00 Emergency Brian [facility] 1.2.840.114 350.1.13.10 4.2.7.2.686 [id number] [id number] 2021-05-22 09:22:00 2021-05-22 10:24:00 Emergency Brian Gray [facility] 1.2.840.114 350.1.13.10 4.2.7.2.686 [id number] 084 [id number] [facility] 2021-05-22 09:22:00 2021-05-22 10:24:00 Emergency X BRIAN GRAY [facility] E[facility] [id number] [facility] 2021-05-22 09:22:00 2021-05-22 10:24:00 Emergency X BRIAN GRAY [facility] E[facility] [id number] [facility] 2021-04-05 11:37:00 2021-04-05 13:25:00 [facility] 1.2.840.114 350.1.13.10 4.2.7.2.686 [id number] 084 [id number] 2021-04-05 11:37:00 2021-04-05 13:25:00 [facility] 1.2.840.114 350.1.13.10 4.2.7.2.686 [id number] 084 [id number] [facility] 2021-04-05 11:37:00 2021-04-05 13:25:00 Emergency X MEGHAN HARVEY [facility] ERT [id number] [facility] 2021-04-05 11:37:00 2021-04-05 13:25:00 Emergency X MEGHAN HARVEY [facility] E[facility] [id number] [facility] 2021-03-16 08:30:00 2021-03-16 10:05:00 Emergency Linda [facility] 1.2.840.114 350.1.13.10 4.2.7.2.686 [id number] 084 [id number] 2021-03-16 08:30:00 2021-03-16 10:05:00 Emergency Linda [facility] 1.2.840.114 350.1.13.10 4.2.7.2.686 [id number] [id number] [facility] 2021-03-16 00:00:00 2021-03-16 00:00:00 Orders Only Doctor Unassigned, [place] [facility] 1.2.840.114 350.1.13.10 4.2.7.2.686 [id number] [id number] 2021-03-16 00:00:00 2021-03-16 00:00:00 Orders Only Doctor Unassigned, [place] [facility] 1.2.840.114 350.1.13.10 4.2.7.2.686 [id number] [id number] [facility] 2021-03-02 00:00:00 2021-03-02 00:00:00 Telephone Chong Bailey [facility] 1.2.840.114 350.1.13.10 4.2.7.2.686 [id number] 2021-03-02 00:00:00 2021-03-02 00:00:00 Telephone Chong Bailey [facility] 1.2.840.114 350.1.13.10 4.2.7.2.686 [id number] 198 [id number] [facility] 2021-02-17 17:20:00 2021-02-17 18:16:00 Emergency Linda [facility] 1.2.840.114 350.1.13.10 4.2.7.2.686 [id number] 084 [id number] 2021-02-17 17:20:00 2021-02-17 18:16:00 Emergency Linda [facility] 1.2.840.114 350.1.13.10 4.2.7.2.686 [id number] [id number] [facility] 2021-02-17 17:20:00 2021-02-17 18:16:00 Emergency X LINDA DEGROOT [facility] E[facility] [id number] [facility] 2021-02-17 17:20:00 2021-02-17 18:16:00 Emergency X LINDA DEGROOT [facility] E[facility] [id number] [facility] 2021-02-12 11:02:00 2021-02-12 11:46:00 Emergency Chay [facility] 1.2.840.114 350.1.13.10 4.2.7.2.686 [id number] 084 [id number] 2021-02-12 11:02:00 2021-02-12 11:46:00 Emergency X CHAY WEEKS [facility] E[facility] [id number] [facility] 2021-02-12 11:02:00 2021-02-12 11:46:00 Emergency X CHAY WEEKS [facility] E[facility] [id number] [facility] 2021-02-12 11:02:00 2021-02-12 11:46:00 Emergency Chay [facility] 1.2.840.114 350.1.13.10 4.2.7.2.686 [id number] 084 [id number] [facility] 2020-09-28 00:00:00 2020-09-28 [facility]:00[facility] 1.2.840.114 350.1.13.10 4.2.7.2.686 [id number] 2020-09-28 00:00:00 2020-09-28 00:00:00 [facility] 1.2.840.114 350.1.13.10 4.2.7.2.686 [id number] [facility] 2020-07-18 11:27:00 2020-07-18 12:25:00 [facility] 1.2.840.114 350.1.13.10 4.2.7.2.686 [id number] 084 [id number] 2020-07-18 11:27:00 2020-07-18 12:25:00 Emergency Isaac [facility] 1.2.840.114 350.1.13.10 4.2.7.2.686 [id number] 084 [id number] [facility] 2020-07-14 10:35:00 2020-07-14 11:01:00 Emergency Brian [facility] 1.2.840.114 350.1.13.10 4.2.7.2.686 [id number] 084 [id number] 2020-07-14 10:35:00 2020-07-14 11:01:00 Emergency X BRIAN GRAY [facility] [id number] [facility] 2020-07-14 10:35:00 2020-07-14 11:01:00 Emergency Isaac [facility] 1.2.840.114 350.1.13.10 4.2.7.2.686 [id number] 084 [id number] [facility] 2020-07-06 00:00:00 2020-07-06 00:00:00 Letter (Out) Johnna Mcallister [facility] 1.2.840.114 350.1.13.10 4.2.7.2.686 [id number] 2020-07-06 00:00:00 2020-07-06 00:00:00 Letter (Out) Ary Johnna T [facility] 1.2.840.114 350.1.13.10 4.2.7.2.686 [id number] 019 [id number] [facility] 2020-07-03 14:13:00 2020-07-03 17:14:00 Emergency Janet Love [facility] 1.2.840.114 350.1.13.10 4.2.7.2.686 [id number] 084 [id number] 2020-07-03 14:13:00 2020-07-03 17:14:00 Emergency Janet Love [facility] 1.2.840.114 350.1.13.10 4.2.7.2.686 [id number] 084 [id number] [facility] 2020-06-18 00:00:00 2020-06-18 00:00:00 Orders Only Doctor Unassigned, [place] [facility] 1.2.840.114 350.1.13.10 4.2.7.2.686 [id number] [id number] 2020-06-18 00:00:00 2020-06-18 00:00:00 Orders Only Doctor Unassigned, [place] [facility] 1.2.840.114 350.1.13.10 4.2.7.2.686 [id number] [id number] [facility] 2020-06-11 07:22:31 2020-06-11 07:47:00 Emergency Brian Gray [facility] 1.2.840.114 350.1.13.10 4.2.7.2.686 [id number] 084 [id number] 2020-06-11 07:22:31 2020-06-11 07:47:00 Emergency Brian [facility] 1.2.840.114 350.1.13.10 4.2.7.2.686 [id number] 084 [id number] [facility] 2020-06-11 00:00:00 2020-06-11 00:00:00 Orders Only Doctor Unassigned, [place] [facility] 1.2.840.114 350.1.13.10 4.2.7.2.686 [id number] [id number] 2020-06-11 00:00:00 2020-06-11 00:00:00 Orders Only Doctor Unassigned, [place] [facility] 1.2.840.114 350.1.13.10 4.2.7.2.686 [id number] [id number] [facility] 2020-06-03 15:21:35 2020-06-03 18:43:00 Emergency Chay Weeks [facility] 1.2.840.114 350.1.13.10 4.2.7.2.686 [id number] 084 [id number] 2020-06-03 15:21:35 2020-06-03 18:43:00 Emergency Chay Weeks [facility] 1.2.840.114 350.1.13.10 4.2.7.2.686 [id number] 084 [id number] [facility] 2020-06-03 00:00:00 2020-06-03 00:00:00 Orders Only Doctor Unassigned, [place] [facility] 1.2.840.114 350.1.13.10 4.2.7.2.686 [id number] [id number] 2020-06-03 00:00:00 2020-06-03 00:00:00 Orders Only Doctor Unassigned, [place] [facility] 1.2.840.114 350.1.13.10 4.2.7.2.686 [id number] [id number] [facility] 2020-05-31 00:00:00 2020-05-31 00:00:00 Telephone Barboza, Mamie S [facility] [place] 1.2.840.114 350.1.13.10 4.2.7.2.686 [id number] 2020-05-31 00:00:00 2020-05-31 00:00:00 Telephone Mamie Barboza [facility] [place] 1.2.840.114 350.1.13.10 4.2.7.2.686 [id number] [facility] 2020-05-19 00:00:00 2020-05-19 00:00:00 Refill Mamie Barboza [facility] [place] 1.2.840.114 350.1.13.10 4.2.7.2.686 [id number] [facility] 2020-05-18 13:35:31 2020-05-18 23:59:00 Outpatient R CHONG BAILEY [facility] [id number] [facility] 2020-05-18 13:35:00 2020-05-18 23:59:00 Hospital Encounter Chong [facility] 1.2.840.114 350.1.13.10 4.2.7.2.686 [id number] [facility] 2020-05-18 15:22:03 2020-05-18 16:00:04 Office Visit Mamie Barboza [facility] [place] 1.2.840.114 350.1.13.10 4.2.7.2.686 [id number] 2020-05-18 15:22:03 2020-05-18 16:00:04 Office Visit Tamra Chong Deras [facility] [place] 1.2.840.114 350.1.13.10 4.2.7.2.686 [id number] [facility] 2020-05-18 00:00:00 2020-05-18 00:00:00 Telephone Chidi Chong Shani [facility] 1.2.840.114 350.1.13.10 4.2.7.2.686 [id number] [facility] 2020-05-18 00:00:00 2020-05-18 00:00:00 Mamie Smith [facility] [place] 1.2.840.114 350.1.13.10 4.2.7.2.686 [id number] [facility] 2020-05-13 09:27:28 2020-05-13 10:04:00 Emergency Linda [facility] 1.2.840.114 350.1.13.10 4.2.7.2.686 [id number] 084 [id number] [facility] 2020-05-13 09:16:00 2020-05-13 09:16:00 Emergency X [facility] [id number] [facility] 2020-05-08 00:00:00 2020-05-08 00:00:00 Orders Only Doctor Unassigned, [place] [facility] 1.2.840.114 350.1.13.10 4.2.7.2.686 [id number] [id number] [facility] 2020-05-07 07:13:15 2020-05-07 07:48:00 Emergency Brian [facility] 1.2.840.114 350.1.13.10 4.2.7.2.686 [id number] 084 [id number] [facility] 2020-05-07 07:13:15 2020-05-07 07:13:15 Emergency X BRIAN GRAY [facility] [id number] [facility] 2020-04-09 19:10:48 2020-04-09 20:54:00 Emergency Jacqueline [facility] 1.2.840.114 350.1.13.10 4.2.7.2.686 [id number] 084 [id number] [facility] 2020-04-09 19:04:00 2020-04-09 19:04:00 Emergency X [facility] [id number] [facility] 2019-08-12 19:51:41 2019-08-12 20:52:00 Emergency Bruce [facility] 1.2.840.114 350.1.13.10 4.2.7.2.686 [id number] [id number] [facility] 2019-07-21 00:00:00 2019-07-21 00:00:00 Transition of Care Jeannie Lopez [place] 1.2.840.114 350.1.13.10 4.2.7.2.686 [id number] [facility] 2019-07-17 11:29:01 2019-07-20 16:22:00 Hospital Encounter Meghan Harvey, Kali Perez, Roman [facility] 1.2.840.114 350.1.13.10 4.2.7.2.686 [id number] [id number] [facility] 2019-06-29 09:20:31 2019-06-29 10:41:00 Emergency Linda [facility] 1.2.840.114 350.1.13.10 4.2.7.2.686 [id number] [id number] [facility] 2019-06-29 00:00:00 2019-06-29 00:00:00 Orders Only Doctor Unassigned, [place] [facility] 1.2.840.114 350.1.13.10 4.2.7.2.686 [id number] [id number] [facility] Results Test Description Test Time Test Comments Results Result Co [facility] [id number] 18:29:00* Test Item Value Reference Range Interpretation Comme nts POCT U SP GRAV (test code = 3255) 1.020 mg/dl 1.005-1.025 POCT PH U (test code = 3254) 5 mg/dl 5-8 POCT U LEUK EST (test code = 3263) arturo Negative - Negative POCT U NIT (test code = 3262) neg Negative - Negati ve POCT U PROT (test code = 3259) neg Negative - Negative POCT U GLU (test code = 3256) neg Negative - Negati ve POCT U KETONE (test code = 3258) neg Negative - Negative POCT U UROBILI (test code = 3260) 0.2 mg/dl 0.2-1 POCT U BILI (test code = 3261) neg Negative - Negative POCT U BLD (test code = 3257) trace Negative - Negati ve POCT U COLOR (test code = 3266) POCT U APPEAR (test code = 3267) Lab Interpretation (test cod e = 92380-9) Abnormal [facility] URINALYSIS W SPECIFIC [id number] 18:29:00* Test Item Value Reference Range Interpretation Comme nts POCT U SP GRAV (test code = 3255) 1.020 mg/dl 1.005-1.025 POCT PH U (test code = 3254) 5 mg/dl 5-8 POCT U LEUK EST (test code = 3263) arturo Negative - Negative POCT U NIT (test code = 3262) neg Negative - Negati ve POCT U PROT (test code = 3259) neg Negative - Negative POCT U GLU (test code = 3256) neg Negative - Negati ve POCT U KETONE (test code = 3258) neg Negative - Negative POCT U UROBILI (test code = 3260) 0.2 mg/dl 0.2-1 POCT U BILI (test code = 3261) neg Negative - Negative POCT U BLD (test code = 3257) trace Negative - Negati ve POCT U COLOR (test code = 3266) POCT U APPEAR (test code = 3267) Lab Interpretation (test cod e = 14541-8) Abnormal [facility] [id number] 15:31:00* Test Item Value Reference Range Interpretation Comme nts POCT PREG (test code = 1605) Negative On board controls acceptable with C Line (test code = 3574) Yes POCT PREG LOT # (test code = 3575) POCT PREG TEST DATE ( test code = 3576) [facility] [id number] 15:31:00* Test Item Value Reference Range Interpretation Comme nts POCT PREG (test code = 1605) Negative On board controls acceptable with C Line (test code = 3574) Yes POCT PREG LOT # (test code = 3575) POCT PREG TEST DATE ( test code = 3576) [facility] [id number] 15:31:00* Test Item Value Reference Range Interpretation Comme nts POCT PREG (test code = 1605) Negative On board controls acceptable with C Line (test code = 3574) Yes POCT PREG LOT # (test code = 3575) POCT PREG TEST DATE ( test code = 3576) [facility] URINALYSIS W SPECIFIC [id number] 19:29:00* Test Item Value Reference Range Interpretation Comme nts POCT U SP GRAV (test code = 3255) 1.015 mg/dl 1.005-1.025 POCT PH U (test code = 3254) 6 mg/dl 5-8 POCT U LEUK EST (test code = 3263) trace Negative - Negative POCT U NIT (test code = 3262) neg Negative - Negati ve POCT U PROT (test code = 3259) neg Negative - Negative POCT U GLU (test code = 3256) neg Negative - Negati ve POCT U KETONE (test code = 3258) neg Negative - Negative POCT U UROBILI (test code = 3260) neg 0.2-1 POCT U BILI (test code = 3261) neg Negative - Negative POCT U BLD (test code = 3257) trace Negative - Negati ve POCT U COLOR (test code = 3266) yellow POCT U APPEAR (test code = 3267) clear Lab Interpretation (test cod e = 53258-6) Abnormal [facility] [id number] 19:28:00* Test Item Value Reference Range Interpretation Comme nts POCT PREG (test code = 1605) Negative On board controls acceptable with C Line (test code = 3574) Yes POCT PREG LOT # (test code = 3575) POCT PREG TEST DATE ( test code = 357) Lab Interpretation (test cod e = 64543-4) Normal [facility] URINALYSIS W SPECIFIC [id number] 16:43:00* Test Item Value Reference Range Interpretation Comme nts POCT U SP GRAV (test code = 3255) 1.020 mg/dl 1.005-1.025 POCT PH U (test code = 3254) 5 mg/dl 5-8 POCT U LEUK EST (test code = 3263) negative Negative - Negative POCT U NIT (test code = 3262) negative Negative - Negati ve POCT U PROT (test code = 3259) negative Negative - Negative POCT U GLU (test code = 3256) negative Negative - Negati ve POCT U KETONE (test code = 3258) positive Negative - Negative POCT U UROBILI (test code = 3260) 1 mg/dl 0.2-1 POCT U BILI (test code = 3261) negative Negative - Negative POCT U BLD (test code = 3257) positive Negative - Negati ve POCT U COLOR (test code = 3266) yellow POCT U APPEAR (test code = 3267) clear Lab Interpretation (test cod e = 83402-3) Abnormal [facility] URINALYSIS W SPECIFIC [id number] 16:43:00* Test Item Value Reference Range Interpretation Comme nts POCT U SP GRAV (test code = 3255) 1.020 mg/dl 1.005-1.025 POCT PH U (test code = 3254) 5 mg/dl 5-8 POCT U LEUK EST (test code = 3263) negative Negative - Negative POCT U NIT (test code = 3262) negative Negative - Negati ve POCT U PROT (test code = 3259) negative Negative - Negative POCT U GLU (test code = 3256) negative Negative - Negati ve POCT U KETONE (test code = 3258) positive Negative - Negative POCT U UROBILI (test code = 3260) 1 mg/dl 0.2-1 POCT U BILI (test code = 3261) negative Negative - Negative POCT U BLD (test code = 3257) positive Negative - Negati ve POCT U COLOR (test code = 3266) yellow POCT U APPEAR (test code = 3267) clear Lab Interpretation (test cod e = 78084-3) [facility]IFIC [id number] 16:43:00* Test Item Value Reference Range Interpretation Comme nts POCT U SP GRAV (test code = 3255) 1.020 mg/dl 1.005-1.025 POCT PH U (test code = 3254) 5 mg/dl 5-8 POCT U LEUK EST (test code = 3263) negative Negative - Negative POCT U NIT (test code = 3262) negative Negative - Negati ve POCT U PROT (test code = 3259) negative Negative - Negative POCT U GLU (test code = 3256) negative Negative - Negati ve POCT U KETONE (test code = 3258) positive Negative - Negative POCT U UROBILI (test code = 3260) 1 mg/dl 0.2-1 POCT U BILI (test code = 3261) negative Negative - Negative POCT U BLD (test code = 3257) positive Negative - Negati ve POCT U COLOR (test code = 3266) yellow POCT U APPEAR (test code = 3267) clear Lab Interpretation (test cod e = 93689-5) [facility]normal [facility]icsTROPONIN [id number] 16:02:39* Test Item Value Reference Range Interpretation Comments TROPONIN I (test code = 2359901929) 0.014 ng/mL See_Comment [Automated message] The system which generated this result transmitted reference range: <=0.034. The reference range was not used to interpret this result as normal/abnormal. DUNCAN (test code = DUNCAN) Reference (Normal) Range (defined by the 99th percentile reference limit): <= 0.034 ng/mL Note: Cardiac troponin begins to rise 3-4 hours after the onset of ischemia. Repeat in 4-6 hours if the sample was drawn within 3-4 hours of the onset of the symptom and found normal. Diagnosis of myocardial injury is made with acute changes in cTn concentrations with at least one serial sample above the 99th percentile upper reference limit (URL), taken together with the patient's clinical presentation. Biotin has been reported to cause a negative bias, interpret results relative to patient's use of biotin. Lab Interpretation (test code = 40825-1) [id number] 15:37:17* Test Item Value Reference Range Interpretation Comme nts LIPASE (test code = 2120057353) 80 U/L 0-220 Lab Interpretation (test cod e = 85443-1) Normal [facility]icsN-TERMINAL [id number] 15:37:17* Test Item Value Reference Range Interpretation Comme nts NT-proBNP (test code = 3348616581) 145 pg/mL See_Comment H [Automated message] The system which generated this result transmitted reference range: <=125. The reference range was not used to interpret this result as normal/abnormal. DUNCAN (test code = DUNCAN) Biotin has been reported to cause a negative bias, interpret results relative to patient's use of biotin. Lab Interpretation (test code = 25238-0) Abnormal [facility] ClinicsTHYROID STIMULATING [id number] 15:37:17 * Test Item Value Reference Range Interpretation Comme nts TSH (test code = 2143498987) See_Comment Biotin has been reported to cause a negative bias, interpret results relative to patient's use of biotin. [Automated message] The system which generated this result transmitted reference range: 0.45 - 4.70 mIU/L. The reference range was not used to interpret this result as normal/abnormal. Lab Interpretation (test code = 20581-1) Normal [facility]icsMAGNESIUM2022-10-09 15:37:17* Test Item Value Reference Range Interpretation Comme nts MAGNESIUM (test code = 9268341775) 1.6 mg/dL 1.7-2.4 L Lab Interpretation (test cod e = 29755-5) Abnormal [facility] ClinicsCOMP. METABOLIC PANEL (26842)2022-09-01 15:37:16* Test Item Value Reference Range Interpretation Comme nts NA (test code = 3817665542) 139 mmol/L 135-145 K (test code = 1799315712) 4.0 mmol/L 3.5-5 CL (test code = 0875974715) 100 mmol/L 98-108 CO2 TOTAL (test code = 4000066244) 27 mmol/L 23-31 AGAP (test code = 2688818849) 2-16 BUN (test code = 4836738805) 17 mg/dL 7-23 GLUCOSE (test code = 0893031982) 154 mg/dL 70-110 H CREATININE (test code = 7021373405) 0.62 mg/dL 0.5-1.04 TOTAL BILI (test code = 0275995969) 0.9 mg/dL 0.1-1.1 CALCIUM (test code = 4960489798) 9.7 mg/dL 8.6-10.6 T PROTEIN (test code = 9686865847) 7.3 g/dL 6.3-8.2 ALBUMIN (test code = 6961750059) 4.6 g/dL 3.5-5 ALK PHOS (test code = 8350912074) 88 U/L 34-122 ALTv (test code = 1742-6) 23 U/L 5-35 AST(SGOT) (test code = 4165319332) 27 U/L 13-40 eGFR (test code = 5458137958) mL/min/1.73m2 DUNCAN (test code = DUNCAN) Association of Glomerular Filtration Rate (GFR) and Staging of Kidney Disease* + --+ --+ ------+| GFR (mL/min/1.73 m2) ?| With Kidney Damage ?| ?Without Kidney Damage+ --------+ --------+ +| ?>90 ?| ?Stage one ?| ? Normal ?+ ---+ ---+ -------+| ?60-89 ?| ?Stage two ?| ? Decreased GFR ? + --+ --+ ------+| ?30-59 ?| ?Stage three ?| ? Stage three ? + --+ --+ ------+| ?15-29 ?| ?Stage four ? | ? Stage four ?+ ---+ ---+ -------+| ?<15 (or dialysis) ? ?| ?Stage five ? | ? Stage five ?+ ---+ ---+ -------+ *Each stage assumes the associated GFR level has been in effect for at least three months. ?Stages 1 to 5, with or without kidney disease, indicate chronic kidney disease. Notes: Determination of stages one and two (with eGFR >59mL/min/1.73 m2) requires estimation of kidney damage for at least three months as defined by structural or functional abnormalities of the kidney, manifested by either:Pathological abnormalities or Markers of kidney damage (including abnormalities in the composition of the blood or urine or abnormalities in imaging tests). Lab Interpretation (test code = 21771-7) [facility]OL[facility]22[facility] 15:26:13 ALCOHOL<10mg/dL09/01/2022 10:26 AM [facility]<10 Fdhufaqe28-139 Toxic>100 Depression of SENIOR QUANTITY SURVEYOR>400 Fatalities ReportedEast [facility] Hospital and ClinicsD-SXAZW9662-17-07 14:51:34* Test Item Value Reference Range Interpretation Comments D-DIMER (test code = 1483237600) See_Comment H [Automated message] The system which generated this result transmitted reference range: <0.41 ?g/mL (FEU). The reference range was not used to interpret this result as normal/abnormal. DUNCAN (test code = DUNCAN) This test may be used in conjunction with a clinical pretest probability (PTP) assessment model to exclude venous thromboembolism (VTE) in patients suspected of deep venous thrombosis (DVT) and pulmonary embolism (PE) A D-Dimer value less than 0.50 ?g/ml (FEU) has a negative predicative value of 96 to 100% (95% CI)and 97 to 100% (95% CI) as an aid in the diagnosis of deep vein thrombosis (DVT) and pulmonary embolism when there is low or moderate pretest probability of PE or DVT. D-Dimer values are expressed in initial fibrinogen equivalent units (FEU)" The assay results should be used with other information, including the clinical context, in forming a diagnosis. Lab Interpretation (test code = 18302-9) Abnormal [facility]icsCBC WITH KTXF1750-72-14 14:40:57* Test Item Value Reference Range Interpretation Comme nts WBC (test code = 6690-2) See_Comment [Automated [employer]os] The system which generated this result transmitted reference range: 4.30 - 11.10 10*3/?L. The reference range was not used to interpret this result as normal/abnormal. RBC (test code = 789-8) See_Comment [Automated [employer]os] The system which generated this result transmitted reference range: 3.93 - 5.25 10*6/?L. The reference range was not used to interpret this result as normal/abnormal. HGB (test code = 718-7) 16.3 g/dL 11.6-15 H HCT (test code = 4544-3) 47.1 % 35.7-45.2 H MCV (test code = 787-2) 90.8 fL 80.6-95.5 MCH (test code = 785-6) 31.4 pg 25.9-32.8 MCHC (test code = 786-4) 34.6 g/dL 31.6-35.1 RDW-SD (test code = 96909-3) 49.3 fL 39-49.9 RDW-CV (test code = 788-0) 14.8 % 12-15.5 PLT (test code = 777-3) See_Comment [Automated messa ge] The system which generated this result transmitted reference range: 166 - 358 10*3/?L. The reference range was not used to interpret this result as normal/abnormal. MPV (test code = 77742-2) 9.5 fL 9.5-12.9 NRBC/100 WBC (test code = 8264435519) See_Comment [Automated [employer] ssage] The system which generated this result transmitted reference range: 0.0 - 10.0 /100 WBCs. The reference range was not used to interpret this result as normal/abnormal. NRBC x10^3 (test code = 1129744703) See_Comment [Automated messa ge] The system which generated this result transmitted reference range: 10*3/?L. The reference range was not used to interpret this result as normal/abnormal. GRAN MAT (NEUT) % (test code = 770-8) 58.0 % IMM GRAN % (test code = 4986126826) 0.20 % LYMPH % (test code = 736-9) 35.7 % MONO % (test code = 5905-5) 5.6 % EOS % (test code = 713-8) 0.2 % BASO % (test code = 706-2) 0.3 % GRAN MAT x10^3(ANC) (test code = 2235612274) 5.10 10*3/uL 1.88-7.09 IMM GRAN x10^3 (test code = 2857289402) 0-0.06 LYMPH x10^3 (test code = 731-0) 3.14 10*3/uL 1.32-3.29 MONO x10^3 (test code = 742-7) 0.49 10*3/uL 0.33-0.92 EOS x10^3 (test code = 711-2) 0.03-0.39 L BASO x10^3 (test code = 704-7) 0.03 10*3/uL 0.01-0.07 Lab Interpretation (test code = 24348-5) Abnormal [facility]icsCom[facility] Metabolic Ygvgi2968-77-67 09:02:00* Test Item Value Reference Range Interpretation Comme nts SODIUM (test code = NA) 142.0 mmol/L 136.0-145.0 N Potassium,K (test code = K) 3.6 mmol/L 3.0-5.1 N Chloride (test code = CL) 108 mmol/L 98-107 H Carbon Dioxide (test code = CO2) 26 mmol/L 20-31 N Anion Gap (test code = GAP) 8 mmol/L 5-15 N Blood Urea Nitrogen (test co de = BUN) 12 mg/dL 9-23 N Creatinine (test code = CREATT) 0.81 mg/dL 0.55-1.02 N Creatinine Clr Calc Pharmacy (test code = CRCLPHA) 76.06 mL/min Estimated GFR ( Ameri ca (test code = EGFRAA) > 60 mL/min/1.73m2 Estimated GFR (Non Afr Ameri ca (test code = EGFRNAA) > 60 mL/min/1.73m2 BUN/Creatinine Ratio (test c ode = BCRATIO) 15 ratio 10-20 N Glucose (test code = GLU) 116 mg/dL 74-106 H Osmolality,Calculated (test code = OSMOC) 294.2 Calcium (test code = CA) 9.0 mg/dL 8.3-10.6 N Bilirubin,Total (test code = BILIT) 0.7 mg/dL 0.2-1.1 N Aspartate Amino Transferase (test code = AST) 33 U/L 0-34 N Alanine Aminotransferase (te st code = ALT) 24 U/L 10-49 N Total Protein (test code = TP) 7.1 g/dL 5.7-8.2 N Albumin Level (test code = ALB) 4.8 g/dL 3.2-4.8 N Globulin (test code = GLOB) 2.3 mg/dL 2.3-3.5 N Albumin/Globulin Ratio (test code = AGRATIO) 2.1 ratio 0.8-2.0 H Alkaline Phosphatase (test c ode = ALP) 80 U/L 46-116 N Ethanol Fkglx3738-37-52 09:02:00* Test Item Value Reference Range Interpretation Comme nts Ethanol (test code = ETOH) < 3 mg/dL HCG, Serum Qual (LAB)2021-08-10 09:02:00* Test Item Value Reference Range Interpretation Comme nts HCG, Serum Qual (LAB) (test code = HCGQ) Negative Negative Coronavirus PCR, COVID19 Ggyve1429-42-83 09:02:00* Test Item Value Reference Range Interpretation Comme nts Coronavirus PCR, COVID19 Rapid (test code = SARSCOV2) For use under Emergency Use Authorization (EUA) only. Coronavirus PCR, COVID19 Rapid (test code = LRSWGLQ52.1) Reference Range: Negative SARS-CoV-2 PCR Result: (test code = SARS-CoV-2 PCR Result:) Negative by PCR COVID-19 Status: AsymptomaticComplete Blood Count Auto Rjzb9457-14-57 09:02:00* Test Item Value Reference Range Interpretation Comme nts White Blood Count (test code = WBCT) 9.5 x10 3/uL 4.4-10.5 N Red Blood Count (test code = RBC) 4.37 x10 6/uL 3.75-5.20 N Hemoglobin (test code = HGBT) 13.3 g/dL 12.2-14.8 N Hematocrit (test code = HCTT) 41.3 % 36.5-44.4 N Mean Corpuscular Volume (deo t code = MCV) 94.50 fL 80.00-100.00 N Mean Corpuscular Hemoglobin (test code = MCH) 30.4 pg 27.0-32.5 N Mean Corpuscular HGB Conc (test code = MCHC) 32.20 g/dL 32.00-37.50 N RDW Coefficient of Variation (test code = RDWCV) 14.9 % 11.5-14.5 H Platelet Count (test code = PLTT) 304.0 x10 3/uL 140.0-440.0 N Mean Platelet Volume (test code = MPV) 9.5 fL Immature Granulocytes % (Aut o) (test code = IMMGRAN%) 0.4 % 0.0-5.0 N Neutrophils % (Auto) (test code = NE%) 76.8 % 36.0-70.0 H Lymphocytes % (Auto) (test code = LY%) 16.9 % 12.0-44.0 N Monocytes % (Auto) (test cod e = MO%) 5.5 % 0.0-11.0 N Eosinophils % (Auto) (test code = EO%) 0.1 % 0.0-7.0 N Basophils % (Auto) (test cod e = BA%) 0.3 % 0.0-2.0 N Immature Granulocytes # (Aut o) (test code = IMMGRAN#) 0.04 x10 3/uL Neutrophils # (Auto) (test code = NE#) 7.3 x10 3/uL 1.6-7.4 N Lymphocytes # (Auto) (test code = LY#) 1.60 x10 3/uL 0.50-4.60 N Monocytes # (Auto) (test cod e = MO#) 0.52 x10 3/uL 0.00-1.20 N Eosinophils # (Auto) (test code = EO#) 0.01 x10 3/uL 0.00-0.74 N Basophils # (Auto) (test cod e = BA#) 0.03 x10 3/uL 0.00-0.21 N nRBC Abs (test code = NRBCA) 0 nRBC Pct (test code = NRBCP) 0 % CT abdomen pelvis [facility] [address] [place] [address] Patient Name: Masha Kilgore Medical Record#: [id number] Address: [address] [place] [address] City/State/Zip: [place] [address]: Christy Partida DO Insurance: [employer] Medicaid /Age/Sex: 1960/60/F Self Pay Admit/Reg Date: 08/10/[address]: Christy Partida DO Location: [facility]/ PCP: PcpMd CHRISTOPHER Garcia Date of Service: 08/10/21 Order (s): CT abdomen pelvis wo con CPT Code: 47193 Report Number: [id number] Reason for Exam: Flank Pain EXA MINATION: CT abdomen pelvis wo con CLINICAL INDICATION: Flank Pain TECHNIQUE: Thin section axial noncontrast contiguous images were obtained through the abdomen and pelvis followed by coronal and sagittal multiplanar reformations. One or more of the following dose reduction techniques were used: Automated exposure control, adjustment of the mA and/or kV according to patient size, and/or iterativereconstruction. COMPARISON: None FINDINGS: Characterization of the solid organs is limited by lack of contrast media. Lower Chest: The visualized lung bases are clear. The heart is normal in size. Nopericardial effusion is identified. Liver: The liver is normal in size and contour. No hepatic massis identified. The bile ducts are of normal caliber. Gallbladder: The gallbladder is slightly contracted. No calcified gallstone is identified. Pancreas: Unremarkable. Spleen: Normal in size and contour. Adrenals: Unremarkable. Kidneys and ureters: No hydronephrosis or nephrolithiasis is identified. Bowel: The small bowel loops are nondilated. There is no evidence of a small bowel obstruction. The normal appendix is identified. Bladder/Reproductive Organs: The urinary bladder is mildly distended but otherwise unremarkable. The uterus is normal in size. Peritoneum and retroperitoneum: No free air or ascites is identified. No retroperitoneal mass or hemorrhage is present. Lymph nodes: No lymphadenopathy is identified. Vascular: Atherosclerotic calcifications are present in the aorta. Abdominal wall: A small fat-containing umbilical hernia is noted. Bones: No acute fracture or suspicious bony lesion is identified. IMPRESSION: No acute abdominal or pelvic finding is identified. Electronically signed by: Oracio Chau MD 08/10/2021 12:55 PM CDT Dictated By: Oracio Chau MD 08/10/21 1236 Signed By: Oracio Chau MD 08/10/21 1236 TD/TT: 08/10/21 1236 Tech: [facility] cc: PCPNO; [id number]* Christy Partida DO; Pcp-Md CHRISTOPHER Vallejo Notes Date/Time Note Provider Source 2024-02-11 09:56:30 qI0GFfAP+fX4EqkoMcUJpTxNKf+YAhNYnG3 WurCRwcnX9xVk8bxR5637SbqLY9Vw0945-2 09:56:30 Outpatient Medication DetailDisp Refills Start End DAWHYDROcodone-acetaminophen 10-325 mg tablet 120 tablet 0 01/14/2024 -- --Sig: Take 1 tablet by mouth every 6 (six) hours as needed for Pain (scale 4-6). Indications: chronic painSent to pharmacy as: hydrocodone 10 mg-acetaminophen 325 mg tablet (NORCO)Class: eRXEarliest Fill Date: 01/14/2024oute: OralOrder: [id number]/Time Signed: 01/14/2024 10:14E-Prescribing Status: Receipt confirmed by pharmacy (01/14/2024 10:14 AM BIOLOGICAL CHEMIST)Controlled? TING ClassYefarhat [1] C-II High Abuse Potential [2]Associated DiagnosesChronic bilateral low back pain without sciatica - PrimaryOrder Associated ProvidersName NPIOrdering Provider Nghia Menendez MD [[id number]] [id number] Provider Nghia Menendez MD [[id number]] [id number] [facility] [place] - [address] [place] [address] [address] [facility] [address] DRRecent VisitsDate Type Provider Dept01/14/24 Office Visit Nghia Menendez MD [facility]12/15/23 Office Visit Nghia Menendez MD [facility]11/12/23 Office Visit Nghia Menendez MD [facility]10/02/23 Office Visit Nghia Menendez MD [facility]09/04/23 Office Visit Nghia Menendez MD [facility]08/06/23 Office Visit Nghia Menendez MD [facility]07/09/23 Office Visit MenendezNghia morse MD [facility] Med06/09/23 Office Visit Nghia Menendez MD [facility] Med03/26/23 Office Visit Nghia Menendez MD [facility] Med02/24/23 Office Visit Nghia Menendez MD [facility] MedShowing recent visits within past 540 days with a meds authorizing provider and meeting all other requirementsFuture AppointmentsDate Type Provider Dept03/15/24 Appointment Nghia Menendez MD [facility] MedShowing future appointments within next 150 days with a meds authorizing provider and meeting all other requirements 18210-7Kqolnutiz encounter GxanDZ6751-31-70N65:56:39Telephone encounter NoteTXT1.2.840.620865.1.13.104.2.7. 2.399198|[id number] for patient xxvu03520-4QmaxWAFJETPYEHVYeehxzjjg C-CDA narrative text[address] Re[id number] 9XWOPYISHLSUUQQYAOWSDHL4316-63-24E9 9:56:391.2.840.309951.1.72.3.15|1.2 .840.117568.1.13.104.2.7.2.727879_2 [id number] [facility] 2024-02-11 09:55:45 XKyO5FMOStNoYb8CReWLyBBtfZwO8+c3UyT tBUuQ+8Hi7mOvCrNYlYtRcRuGQCAQ9826-8 02-10T09:55:45 Notified patient we received her refill request to allow time for to review it. She verbalized understanding.Jenny Dunn LVN 02/11/2024 9:56 AM 81060-8Jzphkyfqs encounter YewhMC9661-28-92N66:56:39Telephone encounter NoteTXT1.2.840.097464.1.13.104.2.7. 2.168624|[id number] for patient wpmm88661-3FmbcXRAWSYAVUFLOjmfwyhrn C-CDA narrative text[id number] 0KTLKSMTAASZFGRVCCJBIAJ8066-45-26N1 9:56:391.2.840.165397.1.72.3.15|1.2 .840.219175.1.13.104.2.7.2.727879_2 [id number] [facility] 2024-02-11 09:53:28 w+e0vkJe4/uCD+vWZeVgWvRS42/oJKhc8Zs 56VIAO9N9vblXnVBEYlRfpGJoNBr32639-6 09:53:28 Copied from [facility] #[id number]. Topic: Clinical - Order>> Feb 11, 2024 9:52 AM Patient Power Plant Assistant wrote:,Masha Kilgore is a 63 year old femalePatient calling in to check if Rx was sent to pharmacy; advised her of refill request turnaround time. 13325-0Bojyadrrs encounter EvcgPU0345-95-18M10:54:07Telephone encounter NoteTXT1.2.840.473126.1.13.104.2.7. 2.949113|[id number] for patient zujw94822-8DthzCSYXHGXQCYFAghbqcwtm C-CDA narrative jfug303295474Epeaqol J [id number] 2DVZHNMSIVVVFFDLXFEEODP6921-02-78X4 9:54:071.2.840.012238.1.72.3.15|1.2 .840.413188.1.13.104.2.7.2.727879_2 [id number] Precious Arora [facility] 2024-02-11 09:33:50 /GgjQAvcG4h9vm6hW6btZ49KY2itPoyogz8 8vgc9skDkpTWhcHU+QcaE6uiHTxvb7795-0 09:33:50 Outpatient Medication DetailDisp Refills Start End DAWHYDROcodone-acetaminophen 10-325 mg tablet 120 tablet 0 01/14/2024 -- --Sig: Take 1 tablet by mouth every 6 (six) hours as needed for Pain (scale 4-6). Indications: chronic painSent to pharmacy as: hydrocodone 10 mg-acetaminophen 325 mg tablet (NORCO)Class: eRXEarliest Fill Date: 01/14/2024oute: OralOrder: [id number]/Time Signed: 01/14/2024 10:14E-Prescribing Status: Receipt confirmed by pharmacy (01/14/2024 10:14 AM BIOLOGICAL CHEMIST)Controlled? TING ClassYes [1] C-II High Abuse Potential [2]Associated DiagnosesChronic bilateral low back pain without sciatica - PrimaryOrder Associated ProvidersName NPIOrdering Provider Nghia Menendez MD [[id number]] [id number] Provider Nghia Menendez MD [[id number]] [id number] [facility] [place], [place] - [address] [place] [address] [address] [facility] DRRecent VisitsDate Type Provider Dept01/14/24 Office Visit Nghia Menendez MD [facility] Fam Med12/15/23 Office Visit Nghia Menendez MD [facility] Med11/12/23 Office Visit Nghia Menendez MD [facility] Fam Med10/02/23 Office Visit Nghia Menendez MD [facility] Fam Med09/04/23 Office Visit Nghia Menendez MD [facility] Fam Med08/06/23 Office Visit Nghia Menendez MD [facility] Med07/09/23 Office Visit Nghia Menendez MD [facility] Med06/09/23 Office Visit Nghia Menendez MD [facility] Med03/26/23 Office Visit Nghia Menendez MD [facility] Med02/24/23 Office Visit Nghia Menendez MD [facility] MedShowing recent visits within past 540 days with a meds authorizing provider and meeting all other requirementsFuture AppointmentsDate Type Provider Dept03/15/24 Appointment Nghia Menendez MD [facility] MedShowing future appointments within next 150 days with a meds authorizing provider and meeting all other requirements 84251-8Qayvnrugf encounter WqyoID3271-91-19A06:34:08Telephone encounter NoteTXT1.2.840.501454.1.13.104.2.7. 2.078260|[id number] for patient hcvu92399-7VexoWWJXPILCSRWLbndauzgm C-CDA narrative textUT[address] ErtnN[id number] 5ZCOARZTBVBLTJNVQQSNCKX1497-94-11X0 9:34:081.2.840.860699.1.72.3.15|1.2 .840.199008.1.13.104.2.7.2.727879_2 [id number] [facility] 2024-02-11 09:26:09 GbeOObMZYa1mnR6kt0OhqQ3IUAkiLJwzCK3 KR3a9wPQ6CIa9kwCn+9ghbJ6biq7h7933-5 02-10T09:26:09 Pt requesting refillHYDROcodone-acetaminophen 10-325 mg tabletHEB [facility] [place], [place] - [address] [place] [address] [address]: Vdh: [phone] signed by Jerome Cuevas at 02/11/2024 9:26 AM MOS46464-8Cpjhgyvuu encounter FewtTP9528-19-28N47:26:40Telephone encounter NoteTXT1.2.840.657637.1.13.104.2.7. 2.133374|[id number] for patient iqee59069-3BzaqNWNMLYASIXWColfkaufq C-CDA narrative ckwr09677486Nfxshr [id number] 8TJDLOWJQWLBSXEULVHZPCA7589-41-65D0 9:26:401.2.840.731301.1.72.3.15|1.2 .840.946095.1.13.104.2.7.2.727879_2 [id number] Jerome Cuevas [facility] 2023-06-24 12:14:22 Bik/FgQ2fkuQ94Xy6ab3rcQT44+4uEpzpEV g5oramx352ZJpSd4LI6LHvSXXOAVX2925-9 06-24T12:14:22 [employer] denied generic symbicort inhaler. Re submitted as brand name medically necessary in attempt for coverage. Will check back with pharmacy this afternoon. 54237-6Vkokvvzdj encounter OhjbOL5438-76-07B35:15:29Telephone encounter NoteTXT1.2.840.073150.1.13.104.2.7. 2.727853|[id number] for patient bchh53174-0ZtdmZLACCHPJXO[address] CdfxPbstlvrvmOvenxgnloZEKI029584331 1ZNTFOIWCIXUUWHAACGEHEW5337-17-35E1 2:15:291.2.840.699797.1.72.3.15|1.2 .840.520444.1.13.104.2.7.2.727879_1 [id number] [facility] 2023-06-23 06:12:19 Bj6s8KVKacHV0eYulypWvDQKpsWaQG0wNVl Nel89reXwCNnoJJXalfDTc0DLyBGD8279-3 06-23T06:12:19 That's good. 28567-1Wntcsxght encounter WvewYY3169-22-55D62:12:32Telephone encounter NoteTXT1.2.840.539090.1.13.104.2.7. 2.952693|8479545144YBFrwilrpwe for patient qufm01742-1AdyuUGVDLQEMEO[id number] 5CGWJRNSCPPJVXGJINYQLIV6928-30-37B4 6:12:321.2.840.142497.1.72.3.15|1.2 .840.889954.1.13.104.2.7.2.727879_1 [id number] [facility] 2023-06-19 14:15:58 x7qcMnOKXrYt7MLj7QTeECj9NMBUtM79/qU 3gS8G5OG1Xf3hL1rpo5UNXUwQ3iVE7579-5 06-19T14:15:58 Spoke to the daughter and she wants a provider referral and any other referrals for any other services that her mother can be assisted with. Told her to call her moms insurance to see who is in network with them and I also gave her Department of Aging Disability Services number as well. Tayla Shanks MA 06/19/2023 2:20 PM 74168-5Ghctzetpk encounter AhwuMZ2517-82-45H22:21:24Telephone encounter NoteTXT1.2.840.084474.1.13.104.2.7. 2.014563|0581463485EPRnhznziem for patient vsfj38136-5GtzoFT107812397Emlporw K [id number] 0FOBGLAXVVFLGBOAYEHSFOJ8471-65-49S9 4:21:241.2.840.770811.1.72.3.15|1.2 .840.299611.1.13.104.2.7.2.727879_1 [id number] Tayla Gonzales [facility] 2023-06-16 10:26:33 d2prueTrk1g75e1Jmqldmc1kFW3yDuKIkAC ymYwWyyXM4f9sDA2aAZufUHOWTKJQ1050-0 06-16T10:26:33 She is looking for some one to help with cooking, cleaning, etc. I don't think that service is available here. 64502-8Zjjwphsyx encounter ZzmnCG0607-11-73S00:28:06Telephone encounter NoteTXT1.2.840.997463.1.13.104.2.7. 2.959437|5864901929DOMzzzbgtgb for patient bqxb55269-4PiwrVGZCZLNLIP[address]vdG[id number] 7SPBUXLVQVMZVHNNTFIAGSQ8495-50-13S4 0:28:061.2.840.829736.1.72.3.15|1.2 .840.504319.1.13.104.2.7.2.727879_1 [id number] [facility] 2023-06-16 10:14:22 MarixafAlvarez/dYm2Vc2DwEBB846KUxq7pSy6yDQ0 IkqP7ia6NJkZgmphj9gQUtP1EMsEU4678-0 06-16T10:14:22 Please review and advise. 80308-4Kgbywauez encounter WxuoLW5441-60-34G14:14:32Telephone encounter NoteTXT1.2.840.057279.1.13.104.2.7. 2.260513|4593747301CPTvkwccaos for patient dkpf13828-9HhftUY868108763Vsvjyh [place] [address] GyviXqrkjfxdsMdjsxkwzqYSOF123643601 4QPAZJDIYBSEUOAKSGCXVNL2589-01-17J1 0:14:321.2.840.057085.1.72.3.15|1.2 .840.792637.1.13.104.2.7.2.727879_1 [id number] Elizabeth Archibald RN [facility] 2023-06-16 09:55:28 GmU9eXOJy+K9AxPY0HxI3MF2aJw2p3EWuNL oxwlhtSzmd1Ehil9xLB627Yr689P55670-2 06-16T09:55:28 Pt is wanting to discuss home health says she can barely stand to wash her own dishes, say she discussed this previously.Call pt on temp #[id number] signed by Lulu Canas at 06/16/2023 9:57 AM IWY74291-4Qvpnqdmcq encounter YodbEF3114-05-26D92:57:27Telephone encounter NoteTXT1.2.840.133876.1.13.104.2.7. 2.849413|9713294205KQVopemykiz for patient tqug12845-8FntjVV025525312Kpaup[address] UcvuPhqhdeplpXmsyxamtzJFIM361011260 4IKSTUNCOROFPZVSNDRCHTB2140-20-93U2 9:57:271.2.840.370986.1.72.3.15|1.2 .840.173750.1.13.104.2.7.2.727879_1 [id number] Lulu Canas [facility] 2023-06-10 16:49:35 PRAG/p+9Qs4h3xG9x68vA2axPWa5GTeliSM k116AtB5Lzkt33KDN6cvum9lC+/Vr3090-7 06-10T16:49:35 Received PA from eugeneMOJICA:BFUJYDWNElectronical ly signed by Valentina Nguyen at 06/10/2023 4:52 PM ODM30715-0Aviwmppgy encounter PtqvFN4345-34-14F26:52:39Telephone encounter NoteTXT1.2.840.403964.1.13.104.2.7. 2.851470|0354982072GEYoraieuog for patient vjcu105886688Dlztwdsww [address] GorbOplcjpwoyBavootkutCYWY963702993 6MEOKGHNHLRREOZTFKDDOKE6425-11-06G6 6:52:391.2.840.857684.1.72.3.15|1.2 [id number] Valentina Nguyen [facility] 2021-08-10 12:04:00 [id number]/RhbA+//[id number] [id number]+[id number] 08-10T12:04:00 [facility] [address] [place] [address] Emergency Department Document Signed Patient: Masha Kilgore Record#: [id number] : 1960 Acct:[id number] Age/Sex: 60 / F Admit/Reg Date: 08/10/21 Loc: [facility] Room: Report Number: [id number]: Christy Partida DO Arrival - Arrival ED Triage Note: Pt here in the ED for DON. Per DON pt noted to have aggression and removing her clothing. Pt denies SI/HI at at this time. Pt calm and cooperative at this time. Pt also reports abdominal pain "for a while" with nausea. Psych HPI - General Nursing note reviewed: Yes Source: patient, police Mode of arrival: ambulatory Limitations: no limitations Primary Care Provider: Pcp-None,[place] - History of Present Illness MD complaint: other (Aggressive behavior) Onset (ago): minute(s) (Prior to arrival) Duration: constant History of same: No Relieving factors: medication Exacerbating factors: alcohol Context: not taking psychiatric medications Associated psychiatric symptoms: depression, other Associated symptoms: other (Abdominal pain) Treatments prior to arrival: none - General Chief Complaint: Psychiatric Symptoms Stated Complaint: Psych / deterioration - History of Present Illness HPI Narrative: Patient brought in by police with report that her daughter called that she is suicidal and being very aggressive at the house, patient reports that she stays in a trailer home next to her daughter and she was screaming because she wants her beer and cigarette, patient with history of bipolar, depression and not taking her medication which are Effexor . (Christy Partida) - Related Data Allergies Allergy/AdvReac Type Severity Reaction Status Date / Time No Known Drug Allergies Allergy Verified 08/10/21 09:06 Review of Systems All Other Systems (except as marked in HPI): Reviewed and Negative Gastrointestinal: Reports: abdominal pain. Denies: constipation, diarrhea, nausea, vomiting, hematemesis, hematochezia Psychiatric: Reports: anxiety, depression, other (Aggressive behavior) Past Medical/Surgical History Narrative PMH: Bipolar disorder (Christy Partida) Family/Social History - Family History Family History Of: Diabetes, Hypertension - Social History Living Situation: Private Home Smoked/Used Tobacco in the Last 30 Days?: Yes Do you drink alcohol: Yes Current or Hx of Recreational Drug use: No Physical Exam General Appearance: Mild Distress Head: Atraumatic, Normocephalic Eyes: PERRL, EOMI, Conjunctiva normal, Cornea normal Ears: Hearing grossly intact, Canals normal, TM's normal Nose: Normal, No nasal discharge, No septal hematoma Mouth/Throat: Mucosa moist, Teeth normal, Pharynx normal, Tonsils normal Neck: Supple, Non-tender, FROM w/o pain, Thyroid nl, No stridor, No post midline tender Lymph: No adenopathy Chest: Atraumatic, Non-tender, No deformity Respiratory: No respiratory distress, Lungs clear, No accessory muscle use Cardiovascular: R/R/R, No Murmurs, No S3/S4 gallops, No Rubs, No JVD Abdominal: Soft, Non-tender, Non-distended, Normal bowel sounds Back: No deformity, Full range of motion, Non-tender, No CVAT, Negative SLR Extremity/Musculoskeletal: Non-tender, No cyanosis, No edema, Nl distal pulses, Neg Ronnie's Skin: Warm, Dry, No Rashes, No Ecchymosis Psych: Calm, No SI/HI, Normal affect Neuro: A O X 3, Nonfocal, Motor grossly normal, Sensory grossly normal, Gait normal, Cerebellar nl, DTR's grossly nl, Speech fluent, CN 2-12 intact, No pronator drift Triage Vital Signs: Temperature 37.1 C 08/10/21 08:51 Temperature Source Oral 08/10/21 08:51 Pulse Rate 105 H 08/10/21 08:51 Respiratory Rate 19 08/10/21 08:51 Blood Pressure 186/101 H 08/10/21 08:51 Blood Pressure Source Automatic Cuff 08/10/21 08:51 Blood Pressure Mean 129 08/10/21 08:51 Blood Pressure Position Sitting 08/10/21 08:51 02 Sat by Pulse Oximetry 96 08/10/21 08:51 Oxygen Delivery Method 08/10/21 08:51 Pain Intensity 8 08/10/21 08:51 Results/Orders - Results and Orders Result diagrams: 08/10/21 09:02 08/10/21 09:02 - Results and Orders Lab Testing Results 08/10/21 09:02: WBC 9.5, RBC 4.37, Hgb 13.3, Hct 41.3, MCV 94.50, MCH 30.4, MCHC 32.20, RDW Coeff ofVar 14.9 H, Plt Count 304.0, MPV 9.5, Immature Gran % (Auto) 0.4, Neut % (Auto) 76.8 H, Lymph % (Auto) 16.9, Warrick % (Auto) 5.5, Eos % (Auto) 0.1, Baso % (Auto) 0.3, Neut # (Auto) 7.3, Lymph # (Auto) 1.60, Warrick # (Auto) 0.52, Eos # (Auto) 0.01, Baso # (Auto) 0.03, Immature Gran # (Auto) 0.04,Absolute Nucleated RBC 0, Nucleated RBC % (auto) 0 08/10/21 09:02: Sodium 142.0, Potassium 3.6, Chloride 108 H, Carbon Dioxide 26, Anion Gap 8, BUN 12,Creatinine 0.81, Estimated Creat Clear 76.06, Est GFR ( Amer) > 60, Est GFR (Non-Af Amer) > 60, BUN/Creatinine Ratio 15, Glucose 116 H, Calculated Osmolality 294.2, Calcium 9.0, Total Bilirubin 0.7, AST 33, ALT 24, Alkaline Phosphatase 80, Total Protein 7.1, Albumin 4.8, Globulin 2.3, Albumin/Globulin Ratio 2.1 H, Ethyl Alcohol < 3 08/10/21 09:02: HCG (Qual) Negative Radiology Orders: Radiology Orders 08/10/21 12:05 CT abdomen pelvis wo con Stat MDM/COURSE Vital Signs Temperature 37.1 C 08/10/21 08:51 Pulse Rate 105 H 08/10/21 08:51 Respiratory Rate 19 08/10/21 08:51 Blood Pressure 186/101 H 08/10/21 08:51 02 Sat by Pulse Oximetry 96 08/10/21 08:51 Temperature 36.7 C 08/10/21 11:55 Pulse Rate 90 08/10/21 11:55 Respiratory Rate 18 08/10/21 11:55 Blood Pressure 150/78 H 08/10/21 11:55 02 Sat by Pulse Oximetry 98 08/10/21 11:55 Clinical Course: Patient complaining of abdominal pain but her abdomen exam is benign order a CT of the abdomen and pelvis without contrast the results are negative reassured patient that she is doing good and her abdomen is nontender nondistended bowel sounds present at this time. 08/10/21 13:50 (Christy Partida) Discharge Plan - Discharge Clinical Impression: Aggressive behavior Disposition: Still in ED Condition: Good Referrals: Pcp-Md Vallejo MD [Primary Care Provider] - ([facility] [place], [place], [facility] [address] [id number] Telephone #[phone] [place] [address] ) Print Language: [place] Dictated By: Christy Partida DO Signed By: Christy Partida DO 08/10/21 1351 DD/ 1204 TD/TT: 08/10/21 1204 Finish Repairer: NUVIA cc: KAREN* Pcp-Md MD JOSE F Vallejo Physician [id number] [id number]:04:00 Zakilajr for patient [id number]:[address] [facility]
[2024-02-28] MEDS ORDERED: KETOROLAC 30 MG/ML INJ ONE (16:28)
[2024-02-28] MEDS ORDERED: DIAZEPAM 5 MG TABLET ONE (16:28)
[2024-02-28] MEDS ORDERED: HYDROCODONE/APAP 7.5/325 MG TAB ONE (16:28)
[2024-02-28] MEDS ORDERED: dexAMETHasone 10 MG/ML VIAL ONE (16:28)
--- NOTE | 2024-02-28 16:31 | ER ---
Nurse's Notes [facility] Name: Afua Cunningham Age: 63 yrs Sex: Female : 1960 Arrival Date: 02/28/2024 Time: 14:40 Bed 7 Private MD: Diagnosis: Pain in left knee;Pain in right knee;Osteoarthritis of knee, unspecified;Tobacco use;Tobacco abuse counseling Presentation: 02/27 14:47 Chief complaint: Patient states: yen leg pain X 3 days, denies injury or over exertion, iw takes hydrocodone for pain but it did not help, has pain to yen ankles, knees and the entire leg. Coronavirus screen: At this time, the client does not indicate any symptoms associated with coronavirus-19. Ebola Screen: No symptoms or risks identified at this time. Initial Sepsis Screen: Does the patient meet any 2 criteria? No. Patient's initial sepsis screen is negative. Does the patient have a suspected source of infection?. Risk Assessment: Do you want to hurt yourself or someone else? Patient reports no desire to harm self or others. Onset of symptoms was February 25, 2024. 14:47 Method Of Arrival: EMS: [facility] iw 14:47 Acuity: ASHA 3 iw Historical: - Allergies: 14:48 No Known Allergies; iw - PMHx: 14:48 Asthma; Anxiety; Back pain; Depression; fx in middle of back; GERD; Hypertension; UTI; iw - Immunization history:: Adult Immunizations not up to date. - Social history:: Smoking status: Patient/guardian denies using. - Family history:: not pertinent. Screenin:09 Abuse screen: Denies threats or abuse. Denies injuries from another. Nutritional iw screening: No deficits noted. Tuberculosis screening: No symptoms or risk factors identified. Assessment: 15:09 General: Appears in no apparent distress. Behavior is calm, cooperative. Pain: iw Complains of pain in right leg and left leg. Neuro: Sanchez Agitation-Sedation Scale (RASS): Level of Consciousness is awake, alert, obeys commands, Oriented to person, place, time, situation, Moves all extremities. Full function. Cardiovascular: Patient's skin is warm and dry. Respiratory: Respiratory effort is even, unlabored, Respiratory pattern is regular. Derm: Skin is intact. Musculoskeletal: Range of motion: intact in all extremities. Vital Signs: 14:47 BP 134 / 82; Pulse 84; Resp 16; Temp 97.6; Pulse Ox 97% on R/A; Weight 79.38 kg; Height iw 5 ft. 1 in. ; Pain 10/10; 14:47 Body Mass Index 33.07 (79.38 kg, 154.94 cm) iw 14:47 Pain Scale: Adult iw ED Course: 14:46 Patient arrived in ED. iw 14:47 Bernadette Williamson, RN is Primary Nurse. iw 14:48 Triage completed. iw 14:49 Arm band placed on. iw 14:52 Shayne Hobbs MD is Attending Physician. mar 15:51 No provider procedures requiring assistance completed. iw 16:30 Anatoliy Simons MD is Referral Physician. mar Administered Medications: 16:36 Drug: Ketorolac IM 30 mg IM once Route: IM; Site: left ventrogluteal; iw 16:36 Drug: Diazepam PO 10 mg PO once Route: PO; iw 16:36 Drug: Hydrocodone-Acetaminophen PO (7.5 mg-325 mg) 1 tabs PO once Route: PO; iw 16:36 Drug: Dexamethasone IM 10 mg IM once Route: IM; Site: left ventrogluteal; iw Medication: 15:09 VIS not applicable for this client. iw Outcome: 16:30 Discharge ordered by . mar 17:26 Patient left the ED. iw Signatures: Shayne Hbobs MD MD cha Williams, Irene, RN RN iw
--- NOTE | 2024-02-28 16:31 | EDPHYS ---
Physician Documentation [facility] Name: Afua Cunnnigham Age: 63 yrs Sex: Female : 1960 Arrival Date: 02/28/2024 Time: 14:40 Bed 7 Private MD: ESTEBAN Physician Shayne Hobbs HPI: 02/27 16:23 This 63 yrs old Black Female presents to ER via EMS with complaints of Leg Pain. mar 16:23 The patient presents with pain, that is acute. The complaints affect the right leg and mar left leg. Context: resulted from a chronic condition, degenerative joint disease, the patient can fully bear weight. Onset: The symptoms/episode began/occurred 2 day(s) ago. Modifying factors: The symptoms are alleviated by elevating leg, remaining still, the symptoms are aggravated by movement, weight bearing, bending knee. Associated signs and symptoms: The patient has no apparent associated signs or symptoms. Treatment prior to arrival includes: prescription medications, hydrocodone. Severity of symptoms: At their worst the symptoms were moderate, in the emergency department the symptoms are unchanged. The patient has experienced similar episodes in the past, multiple times. Historical: - Allergies: 14:48 No Known Allergies; iw - PMHx: 14:48 Asthma; Anxiety; Back pain; Depression; fx in middle of back; GERD; Hypertension; UTI; iw - Immunization history:: Adult Immunizations not up to date. - Social history:: Smoking status: Patient/guardian denies using. - Family history:: not pertinent. ROS: 16:23 Constitutional: Negative for fever, chills, and weight loss, Eyes: Negative for injury, mar pain, redness, and discharge, ENT: Negative for injury, pain, and discharge, Neck: Negative for injury, pain, and swelling, Cardiovascular: Negative for chest pain, palpitations, and edema, Respiratory: Negative for shortness of breath, cough, wheezing, and pleuritic chest pain, Abdomen/GI: Negative for abdominal pain, nausea, vomiting, diarrhea, and constipation, Back: Negative for injury and pain, : Negative for injury, bleeding, discharge, and swelling, Skin: Negative for injury, rash, and discoloration, Neuro: Negative for headache, weakness, numbness, tingling, and seizure, Psych: Negative for depression, anxiety, suicide ideation, homicidal ideation, and hallucinations, Allergy/Immunology: Negative for hives, rash, and allergies, Endocrine: Negative for neck swelling, polydipsia, polyuria, polyphagia, and marked weight changes, Hematologic/Lymphatic: Negative for swollen nodes, abnormal bleeding, and unusual bruising, 16:23 MS/extremity: Positive for decreased range of motion, pain, of the right leg and left leg, Exam: 16:23 Constitutional: This is a well developed, well nourished patient who is awake, alert, mar and in no acute distress. Head/Face: Normocephalic, atraumatic. Eyes: Pupils equal round and reactive to light, extra-ocular motions intact. Lids and lashes normal. Conjunctiva and sclera are non-icteric and not injected. Cornea within normal limits. Periorbital areas with no swelling, redness, or edema. ENT: Nares patent. No nasal discharge, no septal abnormalities noted. Tympanic membranes are normal and external auditory canals are clear. Oropharynx with no redness, swelling, or masses, exudates, or evidence of obstruction, uvula midline. Mucous membranes moist. Neck: Trachea midline, no thyromegaly or masses palpated, and no cervical lymphadenopathy. Supple, full range of motion without nuchal rigidity, or vertebral point tenderness. No Meningismus. Chest/axilla: Normal chest wall appearance and motion. Nontender with no deformity. No lesions are appreciated. Cardiovascular: Regular rate and rhythm with a normal S1 and S2. No gallops, murmurs, or rubs. Normal PMI, no JVD. No pulse deficits. Respiratory: Lungs have equal breath sounds bilaterally, clear to auscultation and percussion. No rales, rhonchi or wheezes noted. No increased work of breathing, no retractions or nasal flaring. Abdomen/GI: Soft, non-tender, with normal bowel sounds. No distension or tympany. No guarding or rebound. No evidence of tenderness throughout. Back: No spinal tenderness. No costovertebral tenderness. Full range of motion. Female : Normal external genitalia. Skin: Warm, dry with normal turgor. Normal color with no rashes, no lesions, and no evidence of cellulitis. Neuro: Awake and alert, GCS 15, oriented to person, place, time, and situation. Cranial nerves II-XII grossly intact. Motor strength 5/5 in all extremities. Sensory grossly intact. Cerebellar exam normal. Normal gait. Psych: Awake, alert, with orientation to person, place and time. Behavior, mood, and affect are within normal limits. 16:23 Musculoskeletal/extremity: Extremities: grossly normal except: noted in the right leg and left knee: decreased ROM, pain, ROM: limited active range of motion due to pain, limited passive range of motion due to pain, Circulation is intact in all extremities. Sensation intact. Compartment Syndrome exam of affected extremity: is normal. Weight bearing: able to fully bear weight, DVT Exam: No signs of deep vein thrombosis. negative Homans' sign noted on exam, no appreciated bluish discoloration, no erythema, no increased warmth, pain, that is mild, swelling, tenderness, that is mild, of the right leg and left leg, Vital Signs: 14:47 BP 134 / 82; Pulse 84; Resp 16; Temp 97.6; Pulse Ox 97% on R/A; Weight 79.38 kg; Height iw 5 ft. 1 in. ; Pain 10/10; 14:47 Body Mass Index 33.07 (79.38 kg, 154.94 cm) iw 14:47 Pain Scale: Adult iw MDM: 14:52 Patient medically screened. mar 16:28 Differential diagnosis: tendonitis. Data reviewed: vital signs, nurses notes. mar Consideration of Admission/Observation Escalation of care including admission/observation considered. I considered the following discharge prescriptions or medication management in the emergency department Medications were administered in the Emergency Department. See MAR. Independent interpretation of the following test(s) in the Emergency Department. Test considered but Not performed: Labs: no labs, n x rays. 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 Care significantly affected by the following chronic conditions: Hypertension, Obesity, djd, asthma, tobacco abuse, cbp, depression. Administered Medications: 16:36 Drug: Ketorolac IM 30 mg IM once Route: IM; Site: left ventrogluteal; iw 16:36 Drug: Diazepam PO 10 mg PO once Route: PO; iw 16:36 Drug: Hydrocodone-Acetaminophen PO (7.5 mg-325 mg) 1 tabs PO once Route: PO; iw 16:36 Drug: Dexamethasone IM 10 mg IM once Route: IM; Site: left ventrogluteal; iw Disposition Summary: 02/28/24 16:30 Discharge Ordered Notes: Location: Home [facility] Problem: new mar Symptoms: have improved mar Condition: Stable mar Diagnosis - Pain in left knee mar - Pain in right knee mar - Osteoarthritis of knee, unspecified mar - Tobacco use mar - Tobacco abuse counseling [facility] Followup: mar - With: Private Physician - When: 2 - 3 days - Reason: Recheck today's complaints, Continuance of care, Re-evaluation by your physician Followup: mar - With: Anatoliy Simons MD - When: 2 - 3 days - Reason: Recheck today's complaints, Re-evaluation by your physician Discharge Instructions: - Discharge Summary Sheet mar - Joint Pain mar - Arthritis mar - Musculoskeletal Pain mar - Osteoarthritis mar - Steps to Quit Smoking mar - Health Risks of Smoking mar - Acute Knee Pain, Adult [facility] - How to Use Cold Therapy, [id number] [facility] - Steps to Quit Smoking, [id number] mar - Arthritis, [id number] mar - How to Use Cold Therapy [facility] Forms: - Medication Reconciliation Form [facility] - Thank You Letter [facility] - Antibiotic Education [facility] - Prescription Opioid Use [facility] - Patient Portal Instructions [facility] - Leadership Thank You Letter [facility] Prescriptions: - dexamethasone 4 mg Oral tablet - take 1 tablet ORAL route daily; 4 tablet; Refills: 0, Product Selection [facility] Permitted - diclofenac sodium 50 mg Oral tablet, delayed release (enteric coated) - take 1 tablet ORAL route 3 times per day; 21 tablet; Refills: 0, Product [facility] Selection Permitted Signatures: Shayne Hobbs MD MD cha Williams, Irene RN RN iw
[2024-02-28 21:48] VITALS: BP 134/82; TEMP 97.6; O2SAT 97
== END 2024-02-28 17:26 | disposition home or self-care (01) ==
LOC: ER 14:40
DX: M17.0 Bilateral primary osteoarthritis of knee (principal); M25.561 Pain in right knee; M25.562 Pain in left knee; Z72.0 Tobacco use; Z71.6 Tobacco abuse counseling
CPT/HCPCS: 96372; 99284; J1100

== ENCOUNTER 2024-02-29 06:58 | Emergency (ER) | payer OTHER ==
--- OUTSIDE RECORDS SUMMARY | 2024-02-29 07:04 | XMS REPORT | Continuity of Care Document ---
Author Name Unknown Address [address] [facility] [address] [place] [address] [facility] thconnect Address [address] [facility] 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 Name Role Phone Pcp-None Primary Care Physician Unavailab MACKENZIE Hooper Attending Clinician Unavailable ELLIE DELUCA Attending Clinician Unavailable NGHIA MENENDEZ Attending Clinician Unavailable Nghia Menendez MD Attending Clinician [phone] Doctor Unassigned, [facility] Attending Clinician U navailable Chay Barron S Attending Clinician [phone] CHAY WEEKS S Attending Clinician Unavailable MIRIAM VERGARA Attending Clinician Unavailable ALTON REYES Attending Clinician Unavailable ALTON REYES Attending Clinician Unavailable Tang WHITE, Mackenzie Attending Clinician [phone] YARI HORNE Attending Clinician Unavaila Alton Henderson DO Attending Clinician [phone] JULI TURNER Attending Clinician UnaRAY Dorsey Attending Clinician Unavailable Ellie Deluca MD L Attending Clinician [phone] MAMIE BARBOZA Attending Clinician Unavailable Green Kiera MCDOWELL Attending Clinician [phone], [facility] Attending Clinician Unavailable Quentin [facility]ician [phone] Prosper Graff Attending Clinician [phone] Unknown, Attending Attending Clinician Unavailab PROSPER Lynn Attending Clinician Unavailable DERECK JOHNSON Attending Clinician Unavailable DERECK JOHNSON Attending Clinician Unavailable SONIA PICKARD Attending Clinician Unavaila Sonia Kent Attending Clinician + [phone] Mamie Cabrales Attending Clinician [phone] CHONG BAILEY Attending Clinician UnavailChong Spicer MD Attending Clinician [phone] SANDRA ANDRADE Attending Clinician Unavaila Sandra Perez Attending Clinician [phone] Lab, Ang - Db Attending Clinician Unavailable MEAGHAN JACOBO Attending Clinician Unavailable DEIDRA MEEK Attending Clinician Unavailable Deidra Meek NP Attending Clinician [phone] RUTHIE HANEY Attending Clinician Unavailable Layne Weir MD Attending Clinician [phone] LAYNE WEIR Attending Clinician Unavailable Ruthie Davis Attending Clinician [phone] ISABELLE PRECIADO Attending Clinician Unavailable Isabelle Husain Attending Clinician [phone] [facility] Attending Clinician Unavail able Mikael Shafer MD Attending Clinician [phone] GURU MEZA Attending Clinician Unavailable Guru Meza DO Attending Clinician + ROSY FLOWERSHAllison Attending Clinician Unavaila prachi Pob, [facility] Main Attending Clinician UnavailREKHA Sanford Attending Clinician Unavailable Isac IRRIGATION SYSTEM INSTALLER, Rekha Attending Clinician [phone] Provider, [facility] Attending Clinician Unavailable Neli Baron MD Attending Clinician [phone] Tor WHITE, Rosy Hameed Attending Clinician + [phone] LINDA DEGROOT Attending Clinician Unavailab rosana Bailey IRRIGATION SYSTEM INSTALLER, Timothy Attending Clinician [phone] TIMOTHY BAILEY Attending Clinician Unavailable Linda Degroot DO Attending Clinician +[phone] Christy Partida Attending Clinician Unavailable Wes MCDOWELL, Meghan Attending Clinician + [phone] Regis Cortez MD Attending Clinician [phone] REGIS CORTEZ Attending Clinician Unavailable Janet Tavera Attending Clinician [phone] Janet LOVE Attending Clinician Unavailable Barry Manuel Attending Clinician +[phone] BARRY GOMEZ Attending Clinician Unavailable Brian Gray MD Attending Clinician + BRIAN GRAY Attending Clinician Unavailable MEGHAN HARVEY Attending Clinician Unavailable Ary FIGUEROA, Johnna Tenorio Attending Clinician Unavailab rosana MCDOWELL, Jacqueline Attending Clinician + Bruce Loco Attending Clinician + Jeannie Lopez RN Attending Clinician + [phone] Kali Caban MD Attending Clinician [phone] Roman Perez Attending Clinician [phone] SANDRA ANDRADE Admitting Clinician Unavaila DEIDRA Calvin Admitting Clinician Unavailable LAYNE WEIR Admitting Clinician Unavailable GURU MEZA Admitting Clinician Unavailable CHONG BAILEY Admitting Clinician UnavailMAMIE Patel Admitting Clinician Unavailable REKHA CHAU Admitting Clinician Unavailable CHAY WEEKS Admitting Clinician Unavailable MEGHAN HARVEY Admitting Clinician Unavailable Mee WHITE, Kali Melo Admitting Clinician [phone] Payers Payer Name Policy Type Policy Number Effective Date Expirati on Date Source [employer] MED[employer]ARE [employer]VANTAGE [id number] 2012 00:00:00 [facility] [id number] 2016 00:00:00 [facility] [id number] 2023 00:00:00 2023 00:00:00 Problems Condition Name Condition Details Condition Category Status Onset Date Resolution Date Last Treatment Date Treating Clinician Comments Source Depression , unspecifie d depression type Depression , unspecifie d depression type Disease Active 08-06 00:00: 00 [facility] Chronic bilateral low back pain without sciatica Chronic bilateral low back pain without sciatica Disease Active 2021-11 00:00: 00 [facility] Cardiac murmur Cardiac murmur Disease Active 2020-11 00:00: 00 [facility] Anemia, unspecifie d type Anemia, unspecifie d type Disease Active 2020-11 00:00: 00 [facility] Chronic GERD Chronic GERD Disease Active 2020-11 00:00: 00 [facility] Moderate persistent asthma without complicati on Moderate persistent asthma without complicati on Disease Active 2020-11 00:00: 00 [facility] Hypertensi on, essential Hypertensi on, essential Disease Active 2020-11 00:00: 00 [facility] Drug-seeki ng behavior Drug-seeki ng behavior Disease Active 2020-11 00:00: 00 [facility] Altered mental status Altered mental status Disease Active 07-17 00:00: 00 [facility] Obesity (BMI 30-39.9) Obesity (BMI 30-39.9) Disease Active 05-31 00:00: 00 [facility] Hypertensi ve urgency Hypertensi ve urgency Disease Active 05-31 00:00: 00 [facility] Allergies, Adverse Reactions, Alerts Allergy Name Allergy Type Status Severity Reaction(s) Onset Date Inactive Date Treating Clinician Comments Source Unable to Assess DA Active U 08-10 00:00: 00 [facility] No Known Drug Allergie s DA Active U 08-10 00:00: 00 [facility] NO KNOWN ALLERGIE S Drug Class Active [facility] Social History Social Habit Start Date Stop Date Quantity Comments Source History SDOH Alcohol Binge [facility] History SDOH Alcohol Comment [facility] History of tobacco use Cigarette Smoker [facility] Alcohol intake 2024-01-14 00:00:00 2024-01-14 00:00:00 Ex-drinker (finding) [facility] History of Social function 2024-01-14 00:00:00 2024-01-14 00:00:00 [facility] Exposure to SARS-CoV-2 (event) 2023-04-07 00:00:00 2023-04-17 09:48:00 Not sure [facility] Cigarettes smoked current (pack per day) - Reported 2022-07-03 00:00:00 2022-07-03 00:00:00 [facility] Cigarette pack-years 2022-07-03 00:00:00 2022-07-03 00:00:00 [facility] Tobacco use and exposure 2022-07-03 00:00:00 2022-07-03 00:00:00 Smokeless tobacco non-user [facility] History SDOH Alcohol Frequency 2019-07-17 00:00:00 2019-07-17 00:00:00 5 [facility] History SDOH Alcohol Std Drinks 2019-07-17 00:00:00 2019-07-17 00:00:00 3 [facility] Education - What is the highest level of school you have completed or the highest degree you have received? 2019-05-31 00:00:00 2019-05-31 00:00:00 7th grade [facility] History SDOH Financial 2019-05-31 00:00:00 2019-05-31 00:00:00 1 [facility] History SDOH Transport Med 2019-05-31 00:00:00 2019-05-31 00:00:00 1 [facility] History SDOH Transport Non-Med 2019-05-31 00:00:00 2019-05-31 00:00:00 1 [facility] Sex Assigned At 1960 00:00:00 1960 00:00:00 [facility] Smoking Status Start Date Stop Date Source Smokes tobacco daily 2022-07-03 00:00:00 [facility] Medications Ordered Medication Name Filled Medication Name Start Date Stop Date Current Medication? Ordering Clinician Indication Dosage Frequency Signature (SIG) Comments Components Source HYDROcodone -acetaminop hen 10-325 mg tablet 02-10 00:00: 00 Yes [id number] 1{tbl} Take 1 tablet by mouth every 6 (six) hours as needed for Pain (scale 4-6). Indication s: chronic pain [facility] venlafaxine 75 mg tablet 01-14 00:00: 00 Yes [id number] 75mg Take 1 tablet by mouth in the morning and 1 tablet in the evening. [facility] pantoprazol e 20 mg EC tablet 01-14 00:00: 00 Yes [id number] 20mg Take 1 tablet by mouth in the morning. [facility] traZODone 50 mg tablet 01-14 00:00: 00 Yes [id number] 25mg Take 0.5 tablets by mouth at bedtime. [facility] HYDROcodone -acetaminop hen 10-325 mg tablet 01-14 00:00: 00 02-10 00:00 :00 No [id number] 1{tbl} Take 1 tablet by mouth every 6 (six) hours as needed for Pain (scale 4-6). Indication s: chronic pain [facility] lactulose 10 gram/15 mL solution 12-15 00:00: 00 Yes [id number] TAKE 15 ML BY MOUTH EVERY DAY NEEDED FOR CONSTIPATI ON [facility] HYDROcodone -acetaminop hen 10-325 mg tablet 12-15 00:00: 00 01-14 00:00 :00 No [id number] 1{tbl} Take 1 tablet by mouth every 6 (six) hours as needed for Pain (scale 4-6). Indication s: chronic pain [facility] atorvastati n 20 mg tablet 2022-11 00:00: 00 Yes [id number] 20mg Take 1 tablet by mouth in the morning. [facility] amLODIPine (NORVASC) 10 mg tablet 2022-11 00:00: 00 Yes [id number] 10mg Take 1 tablet by mouth in the morning. [facility] hydroCHLORO thiazide 25 mg tablet 2022-11 00:00: 00 Yes [id number] 25mg Take 1 tablet by mouth in the morning. [facility] HYDROcodone -acetaminop hen 10-325 mg tablet 2022-11 00:00: 00 12-15 00:00 :00 No [id number] 1{tbl} Take 1 tablet by mouth every 6 (six) hours as needed for Pain (scale 4-6). Indication s: chronic pain [facility] HYDROcodone -acetaminop hen 10-325 mg tablet 2022-11 00:00: 00 11-12 00:00 :00 No [id number] 1{tbl} Take 1 tablet by mouth every 6 (six) hours as needed for Pain (scale 4-6). Indication s: chronic pain [facility] HYDROcodone -acetaminop hen 10-325 mg tablet 2022-11 00:00: 00 10-10 00:00 :00 No [id number] 1{tbl} Take 1 tablet by mouth every 6 (six) hours as needed for Pain (scale 4-6). Indication s: chronic pain [facility] budesonide- formoteroL (SYMBICORT) 160-4.5 mcg/actuati on inhaler 2022-11 00:00: 00 Yes [id number] 2{puff} Inhale 2 Puffs in the morning and 2 Puffs in the evening. [facility] clonazePAM 2 mg tablet 2022-11 00:00: 00 Yes [id number] 2mg Take 1 tablet by mouth every morning and evening. [facility] albuterol 90 mcg/actuati on inhaler 2022-11 00:00: 00 Yes [id number] INHALE 2 PUFFS BY MOUTH EVERY 4 HOURS NEEDED FOR WHEEZING [facility] hydroCHLORO thiazide 25 mg tablet 2022-11 00:00: 00 11-12 00:00 :00 No [id number] 25mg Take 1 tablet by mouth in the morning. [facility] atorvastati n 20 mg tablet 2022-11 00:00: 00 11-12 00:00 :00 No [id number] 20mg Take 1 tablet by mouth in the morning. [facility] amLODIPine (NORVASC) 10 mg tablet 2022-11 00:00: 00 11-12 00:00 :00 No [id number] 10mg Take 1 tablet by mouth in the morning. [facility] LACTULOSE 10 gram/15 mL solution 2022-11 00:00: 00 12-15 00:00 :00 No [id number] TAKE 15 ML BY MOUTH EVERY DAY NEEDED FOR CONSTIPATI ON [facility] HYDROcodone -acetaminop hen 10-325 mg tablet 2022-11 00:00: 00 10-09 00:00 :00 No [id number] 1{tbl} Take 1 tablet by mouth every 6 (six) hours as needed for Pain (scale 4-6). Indication s: chronic pain [facility] hydroCHLORO thiazide 25 mg tablet 2022-11 00:00: 00 10-02 00:00 :00 No [id number] 25mg Take 1 tablet by mouth in the morning. [facility] HYDROcodone -acetaminop hen 10-325 mg tablet 2022-11 00:00: 00 09-10 00:00 :00 No [id number] 1{tbl} Take 1 tablet by mouth every 6 (six) hours as needed for Pain (scale 4-6). Indication s: chronic pain [facility] CLONAZEPAM 2 mg tablet 08-18 00:00: 00 10-02 00:00 :00 No [id number] 2mg TAKE 1 TABLET BY MOUTH IN THE MORNING AND IN THE EVENING [facility] atorvastati n 20 mg tablet 08-11 00:00: 00 10-02 00:00 :00 No [id number] 20mg Take 1 tablet by mouth in the morning. [facility] azithromyci n 250 mg tablet 08-06 00:00: 00 Yes [id number] 250mg Take 1 tablet by mouth in the morning. Take 500 mg day 1, then 250 mg days 2 to 5. [facility] venlafaxine 75 mg tablet 08-06 00:00: 00 01-14 00:00 :00 No [id number] 75mg Take 1 tablet by mouth in the morning and 1 tablet in the evening. [facility] HYDROcodone -acetaminop hen 10-325 mg tablet 08-06 00:00: 00 09-04 00:00 :00 No [id number] 1{tbl} Take 1 tablet by mouth every 6 (six) hours as needed for Pain (scale 4-6). Indication s: chronic pain [facility] HYDROcodone -acetaminop hen 10-325 mg tablet -16 00:00: 00 08-06 00:00 :00 No [id number] 1{tbl} Take 1 tablet by mouth every 6 (six) hours as needed for Pain (scale 4-6). Indication s: chronic pain [facility] SYMBICORT 160-4.5 mcg/actuati on inhaler 8- 00:00: 00 10-02 00:00 :00 No [id number] 2{puff} Inhale 2 Puffs in the morning and 2 Puffs in the evening. [facility] budesonide- formoteroL (SYMBICORT) 160-4.5 mcg/actuati on inhaler 7-28 00:00: 00 06-24 00:00 :00 No [id number] 2{puff} Inhale 2 Puffs in the morning and 2 Puffs in the evening. [facility] losartan 100 mg tablet 06-09 00:00: 00 Yes [id number] 100mg Take 1 tablet by mouth in the morning. [facility] pantoprazol e 20 mg EC tablet 06-09 00:00: 00 01-14 00:00 :00 No [id number] 20mg Take 1 tablet by mouth in the morning. [facility] albuterol 90 mcg/actuati on inhaler 06-09 00:00: 00 10-02 00:00 :00 No [id number] INHALE 2 PUFFS BY MOUTH EVERY 4 HOURS NEEDED FOR WHEEZING [facility] lactulose 10 gram/15 mL solution 06-09 00:00: 00 09-11 00:00 :00 No [id number] TAKE 15 ML BY MOUTH EVERY DAY NEEDED FOR CONSTIPATI ON [facility] hydroCHLORO thiazide 25 mg tablet 06-09 00:00: 00 09-08 00:00 :00 No [id number] 25mg Take 1 tablet by mouth in the morning. [facility] venlafaxine 75 mg tablet 06-09 00:00: 00 08-06 00:00 :00 No [id number] 75mg Take 1 tablet by mouth in the morning and 1 tablet in the evening. [facility] HYDROcodone -acetaminop hen 10-325 mg tablet 06-09 00:00: 00 07-09 00:00 :00 No [id number] 1{tbl} Take 1 tablet by mouth every 6 (six) hours as needed for Pain (scale 4-6). Indication s: chronic pain [facility] CLONAZEPAM 2 mg tablet 05-28 00:00: 00 08-18 00:00 :00 No [id number] NEED ESCRIPT TAKE ONE TABLET BY MOUTH TWICE DAILY @ 9AM & 5PM [facility] triamcinolo ne acetonide (KENALOG) injection 40 mg 05-22 16:15: 05-22 15:05 :00 No [id number] 40mg [facility] fluconazole (DIFLUCAN) 150 mg tablet 04-19 00:00: 00 Yes [id number] Take one tablet; wait 72 hours and take 2nd tablet; wait 72 hours and take 3rd tablet. [facility] cefdinir 300 mg capsule 04-15 00:00: 00 04-26 04:59 :00 No [id number] 600mg Take 2 capsules by mouth in the morning for 10 days. [facility] dexAMETHaso ne (DECADRON) tablet 8 mg 04-10 03:15: 00 04-10 02:36 :00 No 8mg 8 mg, Oral, ONCE NOW, 1 dose, On Fri04/09/23 at 2215, Routine [facility] meloxicam 7.5 mg tablet 04-08 00:00: 00 Yes [id number] 7.5mg Take 1 tablet by mouth in the morning. [facility] HYDROcodone -acetaminop hen 10-325 mg tablet 03-26 00:00: 00 06-09 00:00 :00 No [id number] 1{tbl} Take 1 tablet by mouth every 6 (six) hours as needed for Pain (scale 4-6). Indication s: chronic pain [facility] albuterol 90 mcg/actuati on inhaler 03-26 00:00: 00 06-09 00:00 :00 No [id number] INHALE 2 PUFFS BY MOUTH EVERY 4 HOURS NEEDED FOR WHEEZING [facility] lactulose 10 gram/15 mL solution 03-26 00:00: 00 06-09 00:00 :00 No [id number] TAKE 15 ML BY MOUTH EVERY DAY NEEDED FOR CONSTIPATI ON [facility] sulfamethox azole-trime thoprim (BACTRIM DS) 800-160 mg per tablet 4-12 00:00: 00 Yes [id number] 1{tbl} Take 1 tablet by mouth in the morning and 1 tablet in the evening. [facility] HYDROcodone -acetaminop hen 10-325 mg tablet -12 00:00: 00 03-26 00:00 :00 No [id number] 1{tbl} Take 1 tablet by mouth every 6 (six) hours as needed for Pain (scale 4-6). Indication s: chronic pain [facility] clonazePAM 2 mg tablet 03-04 00:00: 00 05-28 00:00 :00 No [id number] 2mg Take 1 tablet by mouth in the morning and 1 tablet in the evening. [facility] albuterol 90 mcg/actuati on inhaler 03-04 00:00: 00 03-26 00:00 :00 No [id number] INHALE 2 PUFFS BY MOUTH EVERY 4 HOURS NEEDED FOR WHEEZING [facility] triamcinolo ne acetonide (KENALOG) injection 40 mg 02-27 05:00: 00 02-27 16:59 :00 No [id number] 40mg [facility] hydroCHLORO thiazide 25 mg tablet 02-24 00:00: 00 06-09 00:00 :00 No [id number] 25mg Take 1 tablet by mouth in the morning. [facility] ketorolac (TORADOL) injection 30 mg 02-19 18:15: 00 02-19 19:08 :00 No 30mg 30 mg, Intramuscu lar, ONCE, 1 dose, On Fri02/19/23 at 1315, Routine [facility] dexamethaso ne (DECADRON PHOSPHATE) injection 10 mg 02-19 18:15: 00 02-19 18:15 :00 No 10mg 10 mg, Oral, ONCE, 1 dose, On Fri02/19/23 at 1315, Routine [facility] methocarbam oL (ROBAXIN) tablet 1,500 mg 02-19 17:15: 00 02-19 19:07 :00 No 1500mg 1,500 mg, Oral, ONCE, 1 dose, On 3/29/23 at 1215, QAMAR [facility] ketorolac 10 mg tablet 3 00:00: 00 04-08 00:00 :00 No [id number] 10mg Take 1 tablet by mouth every 6 (six) hours as needed for Pain (scale 7-10). [facility] methocarbam oL 500 mg tablet 3 00:00: 00 02-27 04:59 :00 No [id number] 500mg Take 1 tablet by mouth 4 (four) times daily for 7 days. [facility] ibuprofen 800 mg tablet 02-03 00:00: 00 Yes [id number] 800mg Take 1 tablet by mouth every 6 (six) hours as needed for Pain (scale 4-6). [facility] HYDROcodone -acetaminop hen 10-325 mg tablet 02-03 00:00: 00 03-05 00:00 :00 No [id number] 1{tbl} Take 1 tablet by mouth every 6 (six) hours as needed for Pain (scale 4-6). Indication s: chronic pain [facility] LOSARTAN 100 mg tablet 3 00:00: 00 06-09 00:00 :00 No [id number] 100mg TAKE 1 TABLET BY MOUTH IN THE MORNING [facility] pantoprazol e 20 mg EC tablet 12-31 00:00: 00 06-09 00:00 :00 No [id number] 20mg Take 1 tablet by mouth in the morning. [facility] albuterol 90 mcg/actuati on inhaler 2- 00:00: 00 03-04 00:00 :00 No [id number] INHALE 2 PUFFS BY MOUTH EVERY 4 HOURS NEEDED FOR WHEEZING [facility] HYDROcodone -acetaminop hen 10-325 mg tablet 2- 00:00: 00 02-03 00:00 :00 No [id number] 1{tbl} Take 1 tablet by mouth every 6 (six) hours as needed for Pain (scale 4-6). Indication s: chronic pain [facility] ibuprofen 800 mg tablet 2 00:00: 00 02-03 00:00 :00 No [id number] 800mg Take 1 tablet by mouth every 6 (six) hours as needed for Pain (scale 4-6). [facility] pantoprazol e 20 mg EC tablet 2 00:00: 00 12-31 00:00 :00 No [id number] 20mg Take 1 tablet by mouth in the morning. [facility] albuterol 90 mcg/actuati on inhaler 1- 00:00: 00 12-30 00:00 :00 No [id number] INHALE 2 PUFFS BY MOUTH EVERY 4 HOURS NEEDED FOR WHEEZING [facility] HYDROcodone -acetaminop hen 10-325 mg tablet - 00:00: 00 12-30 00:00 :00 No [id number] 1{tbl} Take 1 tablet by mouth every 6 (six) hours as needed for Pain (scale 4-6) for up to 7 days. Indication s: chronic pain [facility] amLODIPine (NORVASC) 10 mg tablet 2021-11 00:00: 00 10-02 00:00 :00 No [id number] 10mg Take 1 tablet by mouth in the morning. [facility] lactulose 10 gram/15 mL solution 2021-11 2 00:00: 00 03-26 00:00 :00 No TAKE 15 ML BY MOUTH EVERY DAY NEEDED FOR CONSTIPATI ON [facility] HYDROcodone -acetaminop hen 10-325 mg tablet 2021-11 2- 00:00: 00 11-05 05:59 :00 No [id number] 1{tbl} Take 1 tablet by mouth every 6 (six) hours as needed for Pain (scale 4-6) for up to 7 days. Indication s: chronic pain [facility] amLODIPine (NORVASC) 5 mg tablet 2021-11 2- 00:00: 00 10-30 00:00 :00 No [id number] 5mg Take 1 tablet by mouth in the morning. [facility] albuterol 90 mcg/actuati on inhaler 2021-11- 00:00: 00 11-27 00:00 :00 No [id number] INHALE 2 PUFFS BY MOUTH EVERY 4 HOURS NEEDED FOR WHEEZING [facility] HYDROcodone -acetaminop hen 7.5-325 mg per tablet 2021-11- 00:00: 00 10-03 05:59 :00 No [id number] 1{tbl} Take 1 tablet by mouth every 6 (six) hours as needed for Pain for up to 7 days. Indication s: chronic pain [facility] venlafaxine 75 mg tablet 2021-11 0- 00:00: 00 06-09 00:00 :00 No [id number] 75mg Take 1 tablet by mouth in the morning and 1 tablet in the evening. [facility] clonazePAM 2 mg tablet 2021-11 00:00: 03-04 00:00 :00 No [id number] 2mg Take 1 tablet by mouth in the morning and 1 tablet in the evening. [facility] pantoprazol e 20 mg EC tablet 2021-11 00:00: 00 12-30 00:00 :00 No [id number] 20mg Take 1 tablet by mouth in the morning. [facility] albuterol 90 mcg/actuati on inhaler 2021-11 0- 00:00: 00 09-25 00:00 :00 No [id number] INHALE 2 PUFFS BY MOUTH EVERY 4 HOURS NEEDED FOR WHEEZING [facility] HYDROcodone -acetaminop hen 7.5-325 mg per tablet 2021-11 0-10 00:00: 00 09-10 04:59 :00 No [id number] 1{tbl} Take 1 tablet by mouth every 8 (eight) hours as needed for Pain for up to 7 days. Indication s: chronic pain [facility] NaCl 0.9% (NS) IV infusion 1,000 mL 2021-11 0- 17:45: 00 09-01 18:21 :00 No 1000mL at 999 mL/hr, Intravenou s, ONCE, 1 dose, On Fri09/01/22 at 1245, QAMAR [facility] cloNIDine (CATAPRES) tablet 0.1 mg 2021-11 0 17:30: 00 09-01 17:21 :00 No .1mg 0.1 mg, Oral, ONCE, 1 dose, On Fri09/01/22 at 1230, STAT [facility] LORazepam (ATIVAN) tablet 2 mg 2021-11 16:30: 00 09-01 17:11 :00 No 2mg 2 mg, Oral, ONCE, 1 dose, On Fri09/01/22 at 1130, [facility] acute hospital iopamidol (ISOVUE 370-500 mL) injection 80 mL 2021-11 0 15:45: 00 09-01 16:00 :00 No [id number] 80mL 80 mL, Intravenou s, ONCE, 1 dose, On Fri09/01/22 at 1100, Routine [facility] ondansetron (ZOFRAN (PF)) injection 4 mg 2021-11 0 14:30: 00 09-01 14:21 :00 No 4mg 4 mg, Slow IV Push, ONCE, 1 dose, On Fri09/01/22 at 0930, General acute hospital morpHINE (4 mg/mL) injection 4 mg 2021-11 14:30: 00 09-01 14:22 :00 No 4mg 4 mg, Slow IV Push, ONCE, 1 dose, On Fri09/01/22 at 0930, STAT [facility] HYDROcodone -acetaminop hen 7.5-325 mg per tablet 9-14 00:00: 00 08-15 04:59 :00 No [id number] 1{tbl} Take 1 tablet by mouth every 6 (six) hours as needed for Pain for up to 7 days. Indication s: chronic pain [facility] budesonide/ formoterol fumarate (SYMBICORT INHALE) 810 15:39: 24 07-03 00:00 :00 No Inhale. [facility] temazepam 15 mg capsule 07-03 15:36: 31 07-03 00:00 :00 No 15mg Take 15 mg by mouth at bedtime as needed for Insomnia. [facility] Venlafaxine 225 mg TR24 07-03 15:34: 06 07-03 00:00 :00 No 75mg Take 75 mg by mouth every morning. [facility] losartan 100 mg tablet 07-03 00:00: 00 01-28 00:00 :00 No [id number] 100mg Take 1 tablet by mouth in the morning. [facility] venlafaxine 75 mg tablet 07-03 00:00: 00 09-02 00:00 :00 No [id number] 75mg Take 1 tablet by mouth in the morning and 1 tablet in the evening. [facility] pantoprazol e 20 mg EC tablet 07-03 00:00: 00 09-02 00:00 :00 No [id number] 20mg Take 1 tablet by mouth in the morning. [facility] clonazePAM 2 mg tablet 07-03 00:00: 00 09-02 00:00 :00 No [id number] 2mg Take 1 tablet by mouth in the morning and 1 tablet in the evening. [facility] albuterol 90 mcg/actuati on inhaler 07-03 00:00: 00 09-02 00:00 :00 No [id number] INHALE 2 PUFFS BY MOUTH EVERY 4 HOURS NEEDED FOR WHEEZING [facility] HYDROcodone -acetaminop hen 7.5-325 mg per tablet 07-03 00:00: 00 07-11 04:59 :00 No [id number] 1{tbl} Take 1 tablet by mouth every 8 (eight) hours as needed for Pain for up to 7 days. Indication s: chronic pain [facility] ALBUTEROL 90 mcg/actuati on inhaler -17 00:00: 00 07-03 00:00 :00 No [id number] INHALE 2 PUFFS BY MOUTH EVERY 4 HOURS NEEDED FOR WHEEZING [facility] acetaminoph en-codeine (TYLENOL-CO DEINE #3) 300-30 mg tablet 4-21 00:00: 00 07-03 00:00 :00 No [id number] 1{tbl} Take 1 tablet by mouth every 4 (four) hours as needed for Pain (scale 4-6) or Pain (scale 7-10). Indication s: acute pain [facility] traMADoL 50 mg tablet 4-14 00:00: 00 07-03 00:00 :00 No [id number] 50mg Take 1 tablet by mouth every 4 (four) hours as needed for Pain (scale 7-10). Indication s: acute pain [facility] pentazocine -naloxone 50-0.5 mg tablet 4-11 00:00: 00 07-03 00:00 :00 No [id number] 1{tbl} Take 1 tablet by mouth every 4 (four) hours as needed for Pain. Indication s: acute pain [facility] diclofenac 75 mg EC tablet 2020-11 2-16 00:00: 00 12-30 00:00 :00 No [id number] 75mg Take 1 tablet by mouth 2 (two) times daily with meals. [facility] traMADoL 50 mg tablet 2020-11 2-09 00:00: 00 07-03 00:00 :00 No [id number] 50mg Take 1 tablet by mouth every 4 (four) hours as needed for Pain (scale 7-10). Indication s: acute pain [facility] METOPROLOL SUCCINATE XL 25 mg 24 hr tablet 2020-11 1-30 00:00: 00 07-03 00:00 :00 No TAKE 1 TABLET BY MOUTH TWICE DAILY [facility] budesonide- formoteroL (SYMBICORT) 160-4.5 mcg/actuati on inhaler 2020-11 0-13 00:00: 00 07-03 00:00 :00 No [id number] 2{puff} Inhale 2 Puffs 2 (two) times daily. [facility] pantoprazol e 20 mg EC tablet 2020-11 0-13 00:00: 00 07-03 00:00 :00 No [id number] 20mg Take 1 tablet by mouth daily. [facility] losartan 100 mg tablet 2020-11 0-13 00:00: 00 07-03 00:00 :00 No [id number] 100mg Take 1 tablet by mouth daily. [facility] Diclofenac Sodium (VOLTAREN) 1 % gel 2020-11 0-07 00:00: 00 07-03 00:00 :00 No [id number] Apply to area(s) 2 (two) times daily. [facility] OLANZapine 10 mg tablet 9-29 00:00: 00 07-03 00:00 :00 No 10mg Take 10 mg by mouth every morning. [facility] ARIPiprazol e 2 mg tablet 6-12 00:00: 00 07-03 00:00 :00 No [facility] clonazePAM 2 mg tablet 5-05 00:00: 00 07-03 00:00 :00 No [facility] Vital Signs Vital Name Observation Time Observation Value Comments S ource Systolic blood pressure 2024-01-14 16:06:00 137 mm[Hg] [facility] Diastolic blood pressure 2024-01-14 16:06:00 85 mm[Hg] [facility] Heart rate 2024-01-14 16:05:00 92 /min [facility] Body height 2024-01-14 16:05:00 154.9 cm [facility] Body weight 2024-01-14 16:05:00 86.093 kg [facility] BMI 2024-01-14 16:05:00 35.86 kg/m2 [facility] Oxygen saturation in Arterial blood by Pulse oximetry 2024-01-14 16:05:00 94 /min [facility] Systolic blood pressure 2023-12-15 15:19:00 139 mm[Hg] [facility] Diastolic blood pressure 2023-12-15 15:19:00 89 mm[Hg] [facility] Heart rate 2023-12-15 15:19:00 102 /min [facility] 2023-12-15 15:19:00 18 /min [facility] Body height 2023-12-15 15:19:00 154.9 cm [facility] Body weight 2023-12-15 15:19:00 86.501 kg [facility] BMI 2023-12-15 15:19:00 36.03 kg/m2 [facility] Oxygen saturation in Arterial blood by Pulse oximetry 2023-12-15 15:19:00 94 /min [facility] Systolic blood pressure 2023-11-12 15:54:00 124 mm[Hg] [facility] Diastolic blood pressure 2023-11-12 15:54:00 86 mm[Hg] [facility] Heart rate 2023-11-12 15:54:00 96 /min [facility] Body height 2023-11-12 15:54:00 157.5 cm [facility] Body weight 2023-11-12 15:54:00 84.641 kg [facility] BMI 2023-11-12 15:54:00 34.13 kg/m2 [facility] Oxygen saturation in Arterial blood by Pulse oximetry 2023-11-12 15:54:00 96 /min [facility] Systolic blood pressure 2023-10-02 18:23:00 163 mm[Hg] [facility] Diastolic blood pressure 2023-10-02 18:23:00 100 mm[Hg] [facility] Heart rate 2023-10-02 18:22:00 96 /min [facility] Respiratory rate 2023-10-02 18:22:00 18 /min [facility] Body height 2023-10-02 18:22:00 154.9 cm [facility] Body weight 2023-10-02 18:22:00 90.81 kg [facility] BMI 2023-10-02 18:22:00 37.83 kg/m2 [facility] Oxygen saturation in Arterial blood by Pulse oximetry 2023-10-02 18:22:00 97 /min [facility] Systolic blood pressure 2023-09-29 08:11:00 136 mm[Hg] [facility] Diastolic blood pressure 2023-09-29 08:11:00 90 mm[Hg] [facility] Heart rate 2023-09-29 08:11:00 87 /min [facility] Body temperature 2023-09-29 08:11:00 36.72 [facility] Respiratory rate 2023-09-29 08:11:00 20 /min [facility] Body height 2023-09-29 08:11:00 154.9 cm [facility] Body weight 2023-09-29 08:11:00 87.091 kg [facility] BMI 2023-09-29 08:11:00 36.28 kg/m2 [facility] Oxygen saturation in Arterial blood by Pulse oximetry 2023-09-29 08:11:00 94 /min [facility] Systolic blood pressure 2023-09-04 15:33:00 132 mm[Hg] [facility] Diastolic blood pressure 2023-09-04 15:33:00 77 mm[Hg] [facility] Heart rate 2023-09-04 15:33:00 94 /min [facility] Body temperature 2023-09-04 15:33:00 36.28 [facility] Body height 2023-09-04 15:33:00 154.9 cm [facility] Body weight 2023-09-04 15:33:00 87.317 kg [facility] BMI 2023-09-04 15:33:00 36.37 kg/m2 [facility] Oxygen saturation in Arterial blood by Pulse oximetry 2023-09-04 15:33:00 95 /min [facility] Systolic blood pressure 2023-08-11 15:56:00 131 mm[Hg] [facility] Diastolic blood pressure 2023-08-11 15:56:00 86 mm[Hg] [facility] Heart rate 2023-08-11 15:56:00 101 /min [facility] Body temperature 2023-08-11 15:56:00 35.56 [facility] Respiratory rate 2023-08-11 15:56:00 19 /min [facility] Body height 2023-08-11 15:56:00 154.9 cm [facility] weight 2023-08-11 15:56:00 88.95 kg [facility] BMI 2023-08-11 15:56:00 37.05 kg/m2 [facility] Oxygen saturation in Arterial blood by Pulse oximetry 2023-08-11 15:56:00 93 /min [facility] Systolic blood pressure 2023-08-06 15:14:00 132 mm[Hg] [facility] Diastolic blood pressure 2023-08-06 15:14:00 78 mm[Hg] [facility] Heart rate 2023-08-06 15:13:00 91 /min [facility] Respiratory rate 2023-08-06 15:13:00 18 /min [facility] Body height 2023-08-06 15:13:00 154.9 cm [facility] Body weight 2023-08-06 15:13:00 87.862 kg [facility] BMI 2023-08-06 15:13:00 36.60 kg/m2 [facility] Oxygen saturation in Arterial blood by Pulse oximetry 2023-08-06 15:13:00 96 /min [facility] Systolic blood pressure 2023-07-09 20:14:00 139 mm[Hg] [facility] Diastolic blood pressure 2023-07-09 20:14:00 85 mm[Hg] [facility] Heart rate 2023-07-09 20:14:00 96 /min [facility] Body height 2023-07-09 20:14:00 154.9 cm [facility] Body weight 2023-07-09 20:14:00 80.74 kg [facility] BMI 2023-07-09 20:14:00 33.63 kg/m2 [facility] Oxygen saturation in Arterial blood by Pulse oximetry 2023-07-09 20:14:00 97 /min [facility] Systolic blood pressure 2023-06-20 14:45:00 114 mm[Hg] [facility] Diastolic blood pressure 2023-06-20 14:45:00 75 mm[Hg] [facility] Heart rate 2023-06-20 14:45:00 99 /min [facility] Respiratory rate 2023-06-20 14:45:00 18 /min [facility] Body height 2023-06-20 14:45:00 154.9 cm [facility] Body weight 2023-06-20 14:45:00 81.364 kg [facility] BMI 2023-06-20 14:45:00 33.89 kg/m2 [facility] Oxygen saturation in Arterial blood by Pulse oximetry 2023-06-20 14:45:00 90 /min [facility] Systolic blood pressure 2023-06-09 17:45:00 136 mm[Hg] [facility] Diastolic blood pressure 2023-06-09 17:45:00 80 mm[Hg] [facility] Heart rate 2023-06-09 17:45:00 108 /min [facility] Respiratory rate 2023-06-09 17:45:00 18 /min [facility] Body height 2023-06-09 17:45:00 154.9 cm [facility] Body weight 2023-06-09 17:45:00 79.425 kg [facility] BMI 2023-06-09 17:45:00 33.08 kg/m2 [facility] Oxygen saturation in Arterial blood by Pulse oximetry 2023-06-09 17:45:00 96 /min [facility] Systolic blood pressure 2023-04-17 15:28:00 112 mm[Hg] [facility] Diastolic blood pressure 2023-04-17 15:28:00 78 mm[Hg] [facility] Heart rate 2023-04-17 15:28:00 87 /min [facility] Body temperature 2023-04-17 15:28:00 37.06 [facility] Respiratory rate 2023-04-17 15:28:00 20 /min [facility] Body height 2023-04-17 15:28:00 154.9 cm [facility] Body weight 2023-04-17 15:28:00 77.202 kg [facility] BMI 2023-04-17 15:28:00 32.16 kg/m2 [facility] Oxygen saturation in Arterial blood by Pulse oximetry 2023-04-17 15:28:00 96 /min [facility] Systolic blood pressure 2023-04-15 19:23:00 145 mm[Hg] [facility] Diastolic blood pressure 2023-04-15 19:23:00 93 mm[Hg] [facility] Heart rate 2023-04-15 19:17:00 89 /min [facility] Body temperature 2023-04-15 19:17:00 37 [facility] Respiratory rate 2023-04-15 19:17:00 16 /min [facility] Body height 2023-04-15 19:17:00 154.9 cm [facility] Body weight 2023-04-15 19:17:00 78.019 kg [facility] BMI 2023-04-15 19:17:00 32.50 kg/m2 [facility] Oxygen saturation in Arterial blood by Pulse oximetry 2023-04-15 19:17:00 96 /min [facility] Systolic blood pressure 2023-04-13 22:55:00 132 mm[Hg] [facility] Diastolic blood pressure 2023-04-13 22:55:00 88 mm[Hg] [facility] Heart rate 2023-04-13 22:55:00 81 /min [facility] Body temperature 2023-04-13 22:55:00 37.22 [facility] Respiratory rate 2023-04-13 22:55:00 14 /min [facility] Body height 2023-04-13 22:55:00 154.9 cm [facility] Body weight 2023-04-13 22:55:00 81.647 kg [facility] BMI 2023-04-13 22:55:00 34.01 kg/m2 [facility] Oxygen saturation in Arterial blood by Pulse oximetry 2023-04-13 22:55:00 99 /min [facility] Systolic blood pressure 2023-04-10 02:05:00 139 mm[Hg] [facility] Diastolic blood pressure 2023-04-10 02:05:00 73 mm[Hg] [facility] Heart rate 2023-04-10 02:05:00 87 /min [facility] Body temperature 2023-04-10 02:05:00 37.06 [facility] Respiratory rate 2023-04-10 02:05:00 20 /min [facility] Body height 2023-04-10 02:05:00 154.9 cm [facility] Body weight 2023-04-10 02:05:00 81.647 kg [facility] BMI 2023-04-10 02:05:00 34.01 kg/m2 [facility] Oxygen saturation in Arterial blood by Pulse oximetry 2023-04-10 02:05:00 98 /min [facility] Body height 2023-04-08 20:56:00 154.9 cm [facility] Body weight 2023-04-08 20:56:00 75.297 kg [facility] BMI 2023-04-08 20:56:00 31.37 kg/m2 [facility] Systolic blood pressure 2023-03-26 20:08:00 139 mm[Hg] [facility] Diastolic blood pressure 2023-03-26 20:08:00 72 mm[Hg] [facility] Heart rate 2023-03-26 19:39:00 92 /min [facility] Body height 2023-03-26 19:39:00 154.9 cm [facility] Body weight 2023-03-26 19:39:00 75.66 kg [facility] BMI 2023-03-26 19:39:00 31.52 kg/m2 [facility] Oxygen saturation in Arterial blood by Pulse oximetry 2023-03-26 19:39:00 95 /min [facility] Body weight 2023-02-27 15:35:00 80.74 kg [facility] BMI 2023-02-27 15:35:00 33.63 kg/m2 [facility] Systolic blood pressure 2023-02-24 16:36:00 132 mm[Hg] [facility] Diastolic blood pressure 2023-02-24 16:36:00 85 mm[Hg] [facility] Heart rate 2023-02-24 16:36:00 84 /min [facility] Oxygen saturation in Arterial blood by Pulse oximetry 2023-02-24 16:36:00 96 /min [facility] Body temperature 2023-02-24 16:35:00 37.56 [facility] Body height 2023-02-24 16:35:00 154.9 cm [facility] Body weight 2023-02-24 16:35:00 80.967 kg [facility] BMI 2023-02-24 16:35:00 33.73 kg/m2 [facility] Systolic blood pressure 2023-02-19 15:32:00 153 mm[Hg] [facility] Diastolic blood pressure 2023-02-19 15:32:00 100 mm[Hg] [facility] Heart rate 2023-02-19 15:32:00 87 /min [facility] Body temperature 2023-02-19 15:32:00 37.11 [facility] Respiratory rate 2023-02-19 15:32:00 18 /min [facility] Body weight 2023-02-19 15:32:00 82.555 kg [facility] BMI 2023-02-19 15:32:00 34.39 kg/m2 [facility] Oxygen saturation in Arterial blood by Pulse oximetry 2023-02-19 15:32:00 99 /min [facility] Systolic blood pressure 2023-02-03 19:38:00 155 mm[Hg] [facility] Diastolic blood pressure 2023-02-03 19:38:00 87 mm[Hg] [facility] Heart rate 2023-02-03 19:38:00 96 /min [facility] Body height 2023-02-03 19:37:00 154.9 cm [facility] Body weight 2023-02-03 19:37:00 82.827 kg [facility] BMI 2023-02-03 19:37:00 34.50 kg/m2 Univ [facility] Oxygen saturation in Arterial blood by Pulse oximetry 2023-02-03 19:37:00 97 /min [facility] Systolic blood pressure 2022-12-30 18:30:00 135 mm[Hg] [facility] Diastolic blood pressure 2022-12-30 18:30:00 85 mm[Hg] [facility] Heart rate 2022-12-30 18:30:00 90 /min [facility] Body height 2022-12-30 18:30:00 154.9 cm [facility] Body weight 2022-12-30 18:30:00 79.878 kg [facility] BMI 2022-12-30 18:30:00 33.27 kg/m2 [facility] Oxygen saturation in Arterial blood by Pulse oximetry 2022-12-30 18:30:00 96 /min [facility] Systolic blood pressure 2022-11-27 19:49:00 144 mm[Hg] [facility] Diastolic blood pressure 2022-11-27 19:49:00 84 mm[Hg] [facility] Heart rate 2022-11-27 19:45:00 91 /min [facility] Body height 2022-11-27 19:45:00 154.9 cm [facility] Body weight 2022-11-27 19:45:00 80.423 kg [facility] BMI 2022-11-27 19:45:00 33.50 kg/m2 [facility] Oxygen saturation in Arterial blood by Pulse oximetry 2022-11-27 19:45:00 98 /min [facility] Systolic blood pressure 2022-10-30 16:59:00 165 mm[Hg] [facility] Diastolic blood pressure 2022-10-30 16:59:00 95 mm[Hg] [facility] Heart rate 2022-10-30 16:59:00 73 /min [facility] Oxygen saturation in Arterial blood by Pulse oximetry 2022-10-30 16:59:00 97 /min [facility] Body temperature 2022-10-30 16:57:00 36.39 [facility] Respiratory rate 2022-10-30 16:57:00 16 /min [facility] Body height 2022-10-30 16:57:00 154.9 cm [facility] Body weight 2022-10-30 16:57:00 80.377 kg [facility] BMI 2022-10-30 16:57:00 33.48 kg/m2 [facility] Systolic blood pressure 2022-10-28 19:15:00 205 mm[Hg] [facility] Diastolic blood pressure 2022-10-28 19:15:00 103 mm[Hg] [facility] Heart rate 2022-10-28 19:14:00 89 /min [facility] Body height 2022-10-28 19:14:00 154.9 cm [facility] Body weight 2022-10-28 19:14:00 84.369 kg [facility] BMI 2022-10-28 19:14:00 35.14 kg/m2 [facility] Oxygen saturation in Arterial blood by Pulse oximetry 2022-10-28 19:14:00 96 /min [facility] Systolic blood pressure 2022-09-25 18:22:00 178 mm[Hg] [facility] Diastolic blood pressure 2022-09-25 18:22:00 92 mm[Hg] [facility] Heart rate 2022-09-25 18:13:00 92 /min [facility] Body height 2022-09-25 18:13:00 154.9 cm [facility] Body weight 2022-09-25 18:13:00 81.647 kg [facility] BMI 2022-09-25 18:13:00 34.01 kg/m2 [facility] Oxygen saturation in Arterial blood by Pulse oximetry 2022-09-25 18:13:00 97 /min [facility] Systolic blood pressure 2022-09-02 19:17:00 140 mm[Hg] [facility] Diastolic blood pressure 2022-09-02 19:17:00 80 mm[Hg] [facility] Heart rate 2022-09-02 19:17:00 106 /min [facility] Body weight 2022-09-02 19:17:00 73.483 kg [facility] BMI 2022-09-02 19:17:00 30.61 kg/m2 [facility] Oxygen saturation in Arterial blood by Pulse oximetry 2022-09-02 19:17:00 97 /min [facility] Systolic blood pressure 2022-09-01 18:15:00 142 mm[Hg] [facility] Diastolic blood pressure 2022-09-01 18:15:00 71 mm[Hg] [facility] Heart rate 2022-09-01 18:15:00 93 /min [facility] Respiratory rate 2022-09-01 18:15:00 19 /min [facility] Oxygen saturation in Arterial blood by Pulse oximetry 2022-09-01 18:15:00 98 /min [facility] Body temperature 2022-09-01 13:47:00 36.22 [facility] Body weight 2022-09-01 13:47:00 83.008 kg [facility] BMI 2022-09-01 13:47:00 34.58 kg/m2 [facility] Systolic blood pressure 2022-07-03 20:15:00 156 mm[Hg] [facility] Diastolic blood pressure 2022-07-03 20:15:00 92 mm[Hg] [facility] Heart rate 2022-07-03 20:15:00 96 /min [facility] Body weight 2022-07-03 20:15:00 83.28 kg [facility] BMI 2022-07-03 20:15:00 34.69 kg/m2 [facility] Oxygen saturation in Arterial blood by Pulse oximetry 2022-07-03 20:15:00 97 /min [facility] Procedures Procedure Date / Time Performed Performing Clinician Source AUTHORIZATION FOR RELEASE OF PHI 2023-10-30 06:01:00 Doctor Unassigned, [facility] CONSENT/REFUSAL FOR DIAGNOSIS AND TREATMENT 2023-09-29 08:23:02 Doctor Unassigned, [facility] ASSIGNMENT OF BENEFITS 2023-09-29 08:22:17 Docto r Unassigned, [facility] MEDICATION CORRESPONDENCE 2023-06-24 05:01:00 Do ctor Unassigned, [facility] POCT URINALYSIS 2023-06-09 18:18:00 [facility] 2023-05-30 05:01:00 Doc tor Unassigned, [facility] HIGH RISK HPV-THIN PREP 2023-04-17 16:00:00 Adum, Ju Mcleod [facility] PAP SMEAR-LIQUID BASED-CP 2023-04-17 16:00:00 Adum, Carol [facility] LAB ONLY PAP SMEAR-LIQUID BASED 2023-04-17 16:00:00 Adum, Ellie [facility] POCT TEST 2023-04-17 00:00:00 Adum, Ellie [facility] [facility] POCT URINALYSIS 2023-04-15 19:29:00 Prosper Sims [facility] POCT TEST 2023-04-15 19:28:00 Stephane Snow [facility] ASSIGNMENT OF BENEFITS 2023-04-13 23:45:56 Docto r Unassigned, [facility] URINALYSIS 2023-04-13 23:24:00 [facility]SENT[facility]REFUSAL FOR DIAGNOSIS AND TREATMENT 2023-04-13 22:45:01 Doctor Unassigned, [facility] NOTICE OF PRIVACY PRACTICES 2023-04-10 01:57:37 Doctor Unassigned, Medill [facility] POCT URINALYSIS 2023-02-24 00:00:00 [facility] 3 VW 2023-02-19 17:37:06 Lydia Andrade [facility] XR KNEE 3 VW LEFT 2023-02-19 17:37:06 Quentin Andrade [facility] CONSENT/REFUSAL FOR DIAGNOSIS AND TREATMENT 2023-02-19 15:29:06 Doctor Unassigned, Medill [facility] PATIENT FINANCIAL POLICY 2023-02-03 18:57:26 Doctor Unassigned, Medill [facility] MEDICATION CORRESPONDENCE 2022-12-11 06:01:00 Do ctor Unassigned, Medill [facility] MEDICATION CORRESPONDENCE 2022-11-22 06:01:00 Do ctor Unassigned, Medill [facility] CONSENT/REFUSAL FOR DIAGNOSIS AND TREATMENT 2022-09-25 17:57:27 Doctor Unassigned, [facility] EKG-12 LEAD 2022-09-01 18:23:52 Deidra Meek [facility] CT CHEST PULMONARY ANGIOGRAM 2022-09-01 15:45:19 Deidra Meek [facility] XR CHEST 1 VW 2022-09-01 14:40:31 Deidra Meek [facility] URINE DRUG (IMMUNOASSAY) - COMPREHENSIVE DRUG SCREEN W/O REFLEX 2022-09-01 14:23:00 Deidra Meek [facility] LIPASE 2022-09-01 14:22:00 Deidra Meek [facility] MAGNESIUM 2022-09-01 14:22:00 Deidra Meek [facility] TROPONIN I 2022-09-01 14:22:00 Deidra Meek [facility] THYROID STIMULATING HORMONE 2022-09-01 14:22:00 Deidra Meek [facility] COMP. METABOLIC PANEL (57318) 2022-09-01 14:22:00 Deidra Meek [facility] ETHANOL 2022-09-01 14:22:00 Deidra Meek [facility] CBC WITH DIFF 2022-09-01 14:22:00 Deidra Meek [facility] D-DIMER 2022-09-01 14:22:00 Deidra Meek [facility] URINALYSIS 2022-09-01 14:22:00 Deidra Meek [facility] N-TERMINAL PRO-BNP 2022-09-01 14:22:00 Deidra Meek [facility] COVID-19 (ID NOW RAPID TESTING) 2022-09-01 14:22:00 Deidra Meek [facility] Encounters Start Date/Time End Date/Time Encounter Type Admission Type Attending [facility] Care Facility Care Department Encounter ID Source 2021-09-25 05:37:23 Emergency [facility] [id number] [facility] ity [facility] 2021-09-24 23:15:39 Emergency [facility] [id number] [facility] ity [facility] 2021-09-24 22:03:21 Emergency [facility] [id number] [facility] ity [facility] 2021-09-24 11:06:58 Emergency [facility] [id number] [facility] ity [facility] 2021-09-23 18:54:33 Emergency [facility] [id number] [facility] ity [facility] 2021-09-23 14:49:00 Emergency [facility] [id number] [facility] ity [facility] 2021-09-21 14:23:37 Emergency [facility] [id number] [facility] ity [facility] 2021-09-21 11:35:45 Emergency [facility] [id number] [facility] ity [facility] 2021-09-21 07:31:33 Emergency [facility] [id number] [facility] ity [facility] 2021-09-21 06:11:19 Emergency [facility] [id number] [facility] 2021-08-10 08:51:00 Inpatient [facility] [id number] [facility] 2021-08-10 08:51:00 Inpatient [facility] [id number] [facility] 2024-08-09 09:00:00 2024-08-09 09:00:00 Outpatient Amador MACKENZIE BECKWITH [facility] [id number] [facility] 2024-03-15 08:45:00 2024-03-15 08:45:00 Outpatient NGHIA MENDES [facility] [id number] [facility] 2024-02-11 00:00:00 2024-02-11 00:00:00 Telephone Shon [facility] JERALD[facility] 1.2.840.114 350.1.13.10 4.2.7.2.686 [id number] [facility] 2024-01-14 09:30:00 2024-01-14 10:15:26 Office Visit Shon Nghia [facility] JERALD?[facility] 1.2.840.114 350.1.13.10 4.2.7.2.686 [id number] [facility] 2024-01-14 09:30:00 2024-01-14 09:30:00 Outpatient NGHIA MENDES [facility] [id number] [facility] 2023-12-15 09:30:00 2023-12-15 09:45:00 Office Visit Shon [facility] JERALD?[facility] 1.2.840.114 350.1.13.10 4.2.7.2.686 [id number] [facility] 2023-12-15 09:30:00 2023-12-15 09:30:00 Outpatient NGHIA MENDES [facility] [id number] [facility] 2023-11-12 09:30:00 2023-11-12 09:45:00 Office [facility] 1.840.114 350.1.13.10 4.2.7.2.686 [id number] [facility] 2023-11-12 09:30:00 2023-11-12 09:30:00 Outpatient R NGHIA MENENDEZ [facility] [id number] [facility] 2023-10-30 00:00:00 2023-10-30 00:00:00 Telephone Nghia Menendez [facility] JERALD?SUSANA [facility] 1.840.114 350.1.13.10 4.2.7.2.686 [id number] [id number] [facility] 2023-10-30 00:00:00 2023-10-30 00:00:00 Orders Only Doctor Unassigned, Medill [facility] 1.840.114 350.1.13.10 4.2.7.2.686 [id number] [facility] 2023-10-10 00:00:00 2023-10-10 00:00:00 Telephone Shon N[facility] 1.840.114 350.1.13.10 4.2.7.2.686 [id number] 044 [id number] [facility] 2023-10-09 00:00:00 2023-10-09 00:00:00 Refill Menendez Nghia [facility]?SUSANA [facility] 1.840.114 350.1.13.10 4.2.7.2.686 [id number] 044 [id number] [facility] 2023-10-09 00:00:00 2023-10-09 00:00:00 Refill Nghia Menendez [facility] 1.2.840.114 350.1.13.10 4.2.7.2.686 [id number] 044 [id number] [facility] 2023-10-06 00:00:00 2023-10-06 00:00:00 [facility] J[facility]D?[facility] 1.2.840.114 350.1.13.10 4.2.7.2.686 [id number] [id number] [facility] 2023-10-06 00:00:00 2023-10-06 00:00:00 Refill Nghia Menendez [facility] JERALD?[facility] 1.2.840.114 350.1.13.10 4.2.7.2.686 [id number] 044 [id number] [facility] 2023-10-06 00:00:00 2023-10-06 00:00:00 Telephone Nghia Menendez [facility] JERALD?[facility] 1.2840.114 350.1.13.10 4.2.7.2.686 [id number] 044 [id number] [facility] 2023-10-02 12:45:00 2023-10-02 13:00:00 Office Visit Nghia Menendez [facility] JERALD?[facility] 1.2840.114 350.1.13.10 4.2.7.2.686 [id number] 044 [id number] [facility] 2023-10-02 12:45:00 2023-10-02 12:45:00 Outpatient R NGHIA MENENDEZ [facility] [id number] [facility] 2023-09-29 02:16:00 2023-09-29 07:39:00 Emergency Chay Weeks [facility] 1.2.840.114 350.1.13.10 4.2.7.2.686 [id number] [facility] 2023-09-29 02:16:00 2023-09-29 07:39:00 Emergency X CHAY WEEKS [facility] ERT [id number] [facility] 2023-09-19 09:00:00 2023-09-19 09:00:00 Outpatient R ALTON REYES SHIWAN [facility] [id number] [facility] 2023-09-17 10:00:00 2023-09-17 10:00:00 Outpatient R SHON NGHIA [facility] [id number] [facility] 2023-09-16 00:00:00 2023-09-16 00:00:00 Telephone Menendez, [facility] JERALD?[facility] 1.2.840.114 350.1.13.10 4.2.7.2.686 [id number] [facility] 2023-09-15 00:00:00 2023-09-15 00:00:00 Telephone Shon [facility] JERALD?[facility] 1.2.840.114 350.1.13.10 4.2.7.2.686 [id number] [id number] [facility] 2023-09-11 00:00:00 2023-09-11 00:00:00 Refill Menendez, Nghia [facility] JERALD?[facility] 1.2.840.114 350.1.13.10 4.2.7.2.686 [id number] 044 [id number] [facility] 2023-09-09 00:00:00 2023-09-09 00:00:00 Telephone Shon [facility] JERALD?[facility] 1.2.840.114 350.1.13.10 4.2.7.2.686 [id number] 044 [id number] [facility] 2023-09-08 00:00:00 2023-09-08 00:00:00 Refill Menendez, [facility] JERALD?[facility] 1.2.840.114 350.1.13.10 4.2.7.2.686 [id number] [id number] [facility] 2023-09-04 12:00:00 2023-09-04 12:00:00 Outpatient R NGHIA MENENDEZ [facility] [id number] [facility] 2023-09-04 12:00:00 2023-09-04 12:00:00 [facility] JERALD?[facility] 1.2.840.114 350.1.13.10 4.2.7.2.686 [id number] [id number] [facility] 2023-09-04 09:30:00 2023-09-04 09:30:00 [facility] [id number] 2023-09-04 00:00:00 2023-09-04 00:00:00 Telephone Shon [facility] JERALD?[facility] 1.2.840.114 350.1.13.10 4.2.7.2.686 [id number] [id number] [facility] 2023-08-20 10:00:00 2023-08-20 10:00:00 Outpatient ELLIE BUENROSTRO [facility] [id number] [facility] 2023-08-15 00:00:00 2023-08-15 00:00:00 Refill Shon [facility] JERALD?[facility] 1.2.840.114 350.1.13.10 4.2.7.2.686 [id number] [facility] 2023-08-11 11:00:00 2023-08-11 11:13:55 Outpatient MACKENZIE PAGAN [facility] [id number] [facility] 2023-08-11 11:00:00 2023-08-11 11:13:55 Office Visit Mackenzie Beckwith [facility] NAL BUILDING 1..114 350.1.13.10 4.2.7.2.686 [id number] [facility] 2023-08-08 08:00:00 2023-08-08 08:00:00 Outpatient R [facility] [id number] [facility] 2023-08-06 10:00:00 2023-08-06 10:27:52 [facility] [id number] [facility] 2023-08-06 10:00:00 2023-08-06 10:15:00 [facility] 1.114 350.1.13.10 4.2.7.2.686 [id number] [facility] 2023-07-29 08:45:00 2023-07-29 08:45:00 Outpatient R HORNEYARI [facility] [id number] [facility] 2023-07-09 15:00:00 2023-07-09 15:25:34 Outpatient R NGHIA MENENDEZ [facility] [id number] [facility] 2023-07-09 15:00:00 2023-07-09 15:25:34 Office Visit Menendez, [facility] 1.114 350.1.13.10 4.2.7.2.686 [id number] [facility] 2023-06-25 00:00:00 2023-06-25 00:00:00 Patient Secure Msg Doctor Unassigned, Medill [facility] 1..114 350.1.13.10 4.2.7.2.686 [id number] [facility] 2023-06-24 00:00:00 2023-06-24 00:00:00 Refill Alton Reyes [facility] 1.2.840.114 350.1.13.10 4.2.7.2.686 [id number] [facility] 2023-06-24 00:00:00 2023-06-24 00:00:00 Orders Only Doctor Unassigned, Medill [facility] 1.2840.114 350.1.13.10 4.2.7.2.686 [id number] [facility] 2023-06-20 10:00:00 2023-06-20 10:04:10 [facility] [id number] [facility] 2023-06-20 10:00:00 2023-06-20 10:04:10 Office Visit Alton Reyes [facility] 1.2.840.114 350.1.13.10 4.2.7.2.686 [id number] [facility] 2023-06-18 00:00:00 2023-06-18 00:00:00 Patient Secure Msg Doctor Unassigned, Medill [facility] 1.840.114 350.1.13.10 4.2.7.2.686 [id number] [facility] 2023-06-16 00:00:00 2023-06-16 00:00:00 Telephone Nghia Menendez [facility] JERALD?[facility] 1.2.840.114 350.1.13.10 4.2.7.2.686 [id number] [facility] 2023-06-16 00:00:00 2023-06-16 00:00:00 Patient Secure Msg Doctor Unassigned, Medill [facility] 1.2.840.114 350.1.13.10 4.2.7.2.686 [id number] [facility] 2023-06-10 00:00:00 2023-06-10 00:00:00 Telephone Shon Ngh[facility] 1.2840.114 350.1.13.10 4.2.7.2.686 [id number] [facility] 2023-06-10 00:00:00 2023-06-10 00:00:00 Telephone Shon Ngh[facility] 1.2840.114 350.1.13.10 4.2.7.2.686 [id number] [facility] 2023-06-10 00:00:00 2023-06-10 00:00:00 Patient Secure Msg Doctor Unassigned, Medill [facility] 1.2840.114 350.1.13.10 4.2.7.2.686 [id number] [facility] 2023-06-09 12:30:00 2023-06-09 13:25:02 Outpatient R NGHIA MENENDEZ [facility] [id number] [facility] 2023-06-09 12:30:00 2023-06-09 13:25:02 Office Visit Shon [facility] 1.2840.114 350.1.13.10 4.2.7.2.686 [id number] [facility] 2023-05-30 00:00:00 2023-05-30 00:00:00 Orders Only Doctor Unassigned, Medill [facility] 1.2840.114 350.1.13.10 4.2.7.2.686 [id number] [facility] 2023-05-28 00:00:00 2023-05-28 00:00:00 RefNghia Moore [facility] 1.2.840.114 350.1.13.10 4.2.7.2.686 [id number] [facility] 2023-05-23 00:00:00 2023-05-23 00:00:00 Outpatient R ARIA ELLIE [facility] [id number] [facility] 2023-05-07 00:00:00 2023-05-07 00:00:00 Telephone [facility]Ellie [facility] 1.2.840.114 350.1.13.10 4.2.7.2.686 [id number] [facility] 2023-04-23 00:00:00 2023-04-23 00:00:00 Outpatient MAMIE MOREJON [facility] [id number] [facility] 2023-04-19 00:00:00 2023-04-19 00:00:00 Telephone Kiera Handy [facility] 1.2.840.114 350.1.13.10 4.2.7.2.686 [id number] [facility] 2023-04-17 11:30:00 2023-04-17 11:45:00 Chief Of Vital Statistics Visit 2, Adc Lab Adjakub Ellie [facility] 1.2.840.114 350.1.13.10 4.2.7.2.686 [id number] [facility] 2023-04-17 10:00:00 2023-04-17 11:06:42 Outpatient R ARIA ELLIE [facility] [id number] [facility] 2023-04-17 10:00:00 2023-04-17 11:06:42 Office Visit Ellie Deluca [facility] PROF[facility] NAL BUILDING 1.2840.114 350.1.13.10 4.2.7.2.686 [id number] [facility] 2023-04-16 00:00:00 2023-04-16 00:00:00 Patient Outreach Heather Saavedra [facility] 1.2840.114 350.1.13.10 4.2.7.2.686 [id number] [facility] 2023-04-16 00:00:00 2023-04-16 00:00:00 Telephone Shon Nghia [facility] 1.2.84.114 350.1.13.10 4.2.7.2.686 [id number] [facility] 2023-04-15 14:20:00 2023-04-15 14:40:00 Urgent Care Prosper Sims Unknown, Attending [facility] 1.84.114 350.1.13.10 4.2.7.2.686 [id number] [facility] 2023-04-15 14:20:00 2023-04-15 14:20:00 Outpatient R PROSPER SIMS [facility] [id number] [facility] 2023-04-13 17:56:00 2023-04-13 19:44:00 Emergency X DERECK JOHNSON DERECK [facility] ERT [id number] [facility] 2023-04-13 17:56:00 2023-04-13 19:44:00 Emergency Dereck Johnson [facility] 1.2840.114 350.1.13.10 4.2.7.2.686 [id number] [facility] 2023-04-09 21:07:00 2023-04-09 21:49:00 Emergency X [facility]LLY [facility] ERT [id number] [facility] 2023-04-09 21:07:00 2023-04-09 21:49:00 Emergency [place], [facility] 1.2.840.114 350.1.13.10 4.2.7.2.686 [id number] [facility] 2023-04-09 00:00:00 2023-04-09 00:00:00 Telephone [facility] 1.2.840.114 350.1.13.10 4.2.7.2.686 [id number] [facility] 2023-04-08 16:05:00 2023-04-08 23:59:00 Outpatient R MAMIE BARBOZA [facility] [id number] [facility] 2023-04-08 15:45:00 2023-04-08 16:00:00 Office Visit Mamie Barboza [facility] 1.2840.114 350.1.13.10 4.2.7.2.686 [id number] [facility] 2023-03-28 00:00:00 2023-03-28 00:00:00 Telephone Nghia Menendez [facility] PROF[facility] NAL BUILD[facility] 1.2.840.114 350.1.13.10 4.2.7.2.686 [id number] [id number] [facility] 2023-03-28 00:00:00 2023-03-28 00:00:00 Telephone Shon [facility] JERALD?[facility] 1.2.840.114 350.1.13.10 4.2.7.2.686 [id number] [facility] 2023-03-27 09:30:00 2023-03-27 09:30:00 Outpatient R NGHIA MENENDEZ [facility] [id number] [facility] 2023-03-26 15:00:00 2023-03-26 15:15:00 Office Visit Ngh[facility] 1.2840.114 350.1.13.10 4.2.7.2.686 [id number] [facility] 2023-03-26 15:00:00 2023-03-26 15:00:00 Outpatient R NGHIA MENENDEZ [facility] [id number] [facility] 2023-03-26 08:30:00 2023-03-26 08:30:00 Outpatient NGHIA MENDES [facility] [id number] [facility] 2023-03-20 07:30:00 2023-03-20 07:30:00 Outpatient R NGHIA MENENDEZ [facility] [id number] [facility] 2023-03-17 00:00:00 2023-03-17 00:00:00 Telephone Shon [facility] JERALD?[facility] 1.2840.114 350.1.13.10 4.2.7.2.686 [id number] [facility] 2023-03-05 00:00:00 2023-03-05 00:00:00 [facility] 1.840.114 350.1.13.10 4.2.7.2.686 [id number] [facility] 2023-03-05 00:00:00 2023-03-05 00:00:00 Telephone Nghia Menendez [facility] J[facility] 1.2840.114 350.1.13.10 4.2.7.2.686 [id number] [facility] 2023-03-03 00:00:00 2023-03-03 00:00:00 RefNghia Moore [facility]SUSA[facility] 1..840.114 350.1.13.10 4.2.7.2.686 [id number] [facility] 2023-02-28 00:00:00 2023-02-28 00:00:00 Refill Nghia Menendez [facility] 1..840.114 350.1.13.10 4.2.7.2.686 [id number] [facility] 2023-02-27 10:30:00 2023-02-27 12:21:16 Outpatient R CHONG BAILEY [facility] [id number] [facility] 2023-02-27 10:30:00 2023-02-27 12:21:16 Office Visit Mamie Barboza Craig L [facility] 1..840.114 350.1.13.10 4.2.7.2.686 [id number] [facility] 2023-02-24 12:15:00 2023-02-24 12:15:00 Outpatient NGHIA MENDES [facility] [id number] [facility] 2023-02-24 11:30:00 2023-02-24 12:04:36 Outpatient R NGHIA MENENDEZ [facility] [id number] [facility] 2023-02-24 11:30:00 2023-02-24 12:04:36 Office Visit Ngh[facility] Menendez [facility] 1..840.114 350.1.13.10 4.2.7.2.686 [id number] [facility] 2023-02-19 10:33:00 2023-02-19 14:10:00 Emergency X SANDRA ANDRADE [facility] E[facility] [id number] [facility] 2023-02-19 10:33:00 2023-02-19 14:10:00 Emergency Sandra Andrade F [facility] 1.2840.114 350.1.13.10 4.2.7.2.686 [id number] [facility] 2023-02-07 08:15:00 2023-02-07 08:30:00 Chief Of Vital Statistics Visit Lab, Vipin Menendez [facility] 1..114 350.1.13.10 4.2.7.2.686 [id number] [facility] 2023-02-07 08:15:00 2023-02-07 08:15:00 Outpatient NGHIA MENDES [facility] [id number] [facility] 2023-02-04 09:45:00 2023-02-04 09:45:00 Outpatient NGHIA MENDES [facility] [id number] [facility] [facility] 2023-02-03 14:00:00 2023-02-03 14:15:00 Office [facility] 1.84.114 350.1.13.10 4.2.7.2.686 [id number] [facility] 2023-02-03 14:00:00 2023-02-03 14:00:00 Outpatient NGHIA MENDES [facility] [id number] [facility] 2023-02-03 00:00:00 2023-02-03 00:00:00 Orders Only Doctor Unassigned, Medill [facility] 1.2840.114 350.1.13.10 4.2.7.2.686 [id number] [facility] 2023-01-28 00:00:00 2023-01-28 00:00:00 [facility] 1.2.840.114 350.1.13.10 4.2.7.2.686 [id number] [id number] [facility] 2023-01-02 00:00:00 2023-01-02 00:00:00 Telephone [facility] 1..840.114 350.1.13.10 4.2.7.2.686 [id number] [id number] [facility] 2022-12-31 00:00:00 2022-12-31 00:00:00 Refill Ngh[facility] 1..840.114 350.1.13.10 4.2.7.2.686 [id number] [facility] 2022-12-30 12:30:00 2022-12-30 12:45:00 Office Visit Nghia Menendez [facility] JERALD?[facility] 1.2.840.114 350.1.13.10 4.2.7.2.686 [id number] 044 [id number] [facility] 2022-12-30 12:30:00 2022-12-30 12:30:00 Outpatient R SHON NGHIA [facility] [id number] [facility] 2022-12-18 00:00:00 2022-12-18 00:00:00 [facility] J[facility]D?[facility] 1.2.840.114 350.1.13.10 4.2.7.2.686 [id number] [id number] [facility] 2022-12-11 00:00:00 2022-12-11 00:00:00 Orders Only Doctor Unassigned, Medill [facility] 1.2.840.114 350.1.13.10 4.2.7.2.686 [id number] [facility] 2022-12-10 15:00:00 2022-12-10 15:00:00 Outpatient R MEAGHAN JACOBO [facility] [id number] [facility] 2022-11-28 13:00:00 2022-11-28 13:00:00 Outpatient R NGHIA MENENDEZ [facility] [id number] [facility] 2022-11-27 13:45:00 2022-11-27 14:14:10 Outpatient R NGHIA MENENDEZ [facility] [id number] [facility] 2022-11-27 13:45:00 2022-11-27 14:00:00 [facility] 1.2.840.114 350.1.13.10 4.2.7.2.686 [id number] [facility] 2022-11-25 00:00:00 2022-11-25 00:00:00 Telephone [facility] 1.2.840.114 350.1.13.10 4.2.7.2.686 [id number] 044 [id number] [facility] 2022-11-22 00:00:00 2022-11-22 00:00:00 Orders Only Doctor Unassigned, Medill [facility] 1.2.840.114 350.1.13.10 4.2.7.2.686 [id number] [facility] 2022-11-12 00:00:00 2022-11-12 00:00:00 Outpatient MACKENZIE PAGAN [facility] [id number] [facility] 2022-10-30 10:20:00 2022-10-30 11:17:22 [facility] [id number] [facility] 2022-10-30 10:20:00 2022-10-30 11:17:22 Office Visit [facility] 1.2.840.114 350.1.13.10 4.2.7.2.686 [id number] [facility] 2022-10-28 13:15:00 2022-10-28 13:32:14 Outpatient NGHIA MENDES [facility] [id number] [facility] 2022-10-28 13:15:00 2022-10-28 13:30:00 [facility] 1.2.840.114 350.1.13.10 4.2.7.2.686 [id number] [facility] 2022-10-01 00:00:00 2022-10-01 00:00:00 Telephone Heather [facility] 1..840.114 350.1.13.10 4.2.7.2.686 [id number] [facility] 2022-09-26 00:00:00 2022-09-26 00:00:00 Patient Outreach Heather [facility]aved[facility] 1.2.840.114 350.1.13.10 4.2.7.2.686 [id number] 044 [id number] [facility] 2022-09-25 13:00:00 2022-09-25 13:15:00 Office Visit Shon Nghia [facility] JER[facility] 1.2.840.114 350.1.13.10 4.2.7.2.686 [id number] [id number] [facility] 2022-09-25 13:00:00 2022-09-25 13:00:00 Outpatient NGHIA MENDES [facility] [id number] [facility] 2022-09-25 00:00:00 2022-09-25 00:00:00 Orders Only Doctor Unassigned, Medill [facility] 1.2.840.114 350.1.13.10 4.2.7.2.686 [id number] [facility] 2022-09-02 14:00:00 2022-09-02 14:26:56 Outpatient NGHIA MENDES [facility] [id number] [facility] 2022-09-02 14:00:00 2022-09-02 14:15:00 Office Visit Nghia Menendez [facility] 1.2.840.114 350.1.13.10 4.2.7.2.686 [id number] [facility] 2022-09-02 00:00:00 2022-09-02 00:00:00 Telephone Nghia Menendez [facility] 1.2.840.114 350.1.13.10 4.2.7.2.686 [id number] [facility] 2022-09-01 08:47:00 2022-09-01 14:18:00 Emergency X DEIDRA MEEK [facility] ERT [id number] [facility] 2022-09-01 08:47:00 2022-09-01 14:18:00 Emergency Deidra Meek G [facility] 1.2.840.114 350.1.13.10 4.2.7.2.686 [id number] [facility] 2022-08-21 15:00:00 2022-08-21 15:00:00 Outpatient RUTHIE THACKER [facility] [id number] [facility] 2022-08-06 00:00:00 2022-08-06 00:00:00 Telephone Nghia Menendez [facility] 1..840.114 350.1.13.10 4.2.7.2.686 [id number] [id number] [facility] 2022-07-03 15:15:00 2022-07-03 15:52:50 [id number] 2022-07-03 15:15:00 2022-07-03 15:30:00 [facility] 1.840.114 350.1.13.10 4.2.7.2.686 [id number] [facility] 2022-07-03 15:15:00 2022-07-03 15:15:00 Outpatient R NGHIA MENENDEZ [facility] [id number] [facility] 2022-07-03 00:00:00 2022-07-03 00:00:00 Patient Secure Msg Doctor Unassigned, Medill [facility] 1.84.114 350.1.13.10 4.2.7.2.686 [id number] [facility] 2022-06-28 00:00:00 2022-06-28 00:00:00 Patient Secure Msg Doctor Unassigned, Medill [facility] 1..114 350.1.13.10 4.2.7.2.686 [id number] [facility] 2022-06-26 08:47:07 2022-06-26 23:59:00 Hospital Encounter Layne Weir [facility] 1..114 350.1.13.10 4.2.7.2.686 [id number] [facility] 2022-06-26 08:46:05 2022-06-26 08:46:00 Outpatient R LAYNE WEIR [facility] [id number] [facility] 2022-06-26 08:30:00 2022-06-26 08:46:00 Hospital Encounter [facility] 1.114 350.1.13.10 4.2.7.2.686 [id number] [facility] 2022-06-18 00:00:00 2022-06-18 00:00:00 Case Management [facility] 1.114 350.1.13.10 4.2.7.2.686 [id number] [facility] 2022-06-11 00:00:00 2022-06-11 00:00:00 Telephone Ruthie Haney [facility] 1.114 350.1.13.10 4.2.7.2.686 [id number] [id number] [facility] 2022-06-10 11:03:40 2022-06-10 23:59:00 Outpatient R ISABELLE PRECIADO [facility] [id number] [facility] 2022-06-10 10:00:00 2022-06-10 23:59:00 Hospital Encounter Isabelle Preciado [facility] 1.114 350.1.13.10 4.2.7.2.686 [id number] [facility] 2022-06-06 00:00:00 2022-06-06 00:00:00 Case Management Mikael Shafer [facility] 1.114 350.1.13.10 4.2.7.2.686 [id number] [facility] 2022-06-05 09:46:00 2022-06-05 13:39:00 Emergency X GURU MEZA [facility] ERT [id number] [facility] 2022-06-05 09:46:00 2022-06-05 13:39:00 Emergency Guru Meza [facility] 1.2.840.114 350.1.13.10 4.2.7.2.686 [id number] [facility] 2022-04-05 00:00:00 2022-04-05 00:00:00 Telephone MedinaRuthie [facility] JER[facility]D?[facility] 1.2840.114 350.1.13.10 4.2.7.2.686 [id number] 044 [id number] [facility] 2022-04-02 00:00:00 2022-04-02 00:00:00 Refill Ruthie Haney [facility] 1.2840.114 350.1.13.10 4.2.7.2.686 [id number] [id number] [facility] 2022-03-28 00:00:00 2022-03-28 00:00:00 Orders Only Doctor Unassigned, Medill [facility] 1.2840.114 350.1.13.10 4.2.7.2.686 [id number] [facility] 2022-03-27 00:00:00 2022-03-27 00:00:00 Telephone Ruthie Haney [facility] 1.2840.114 350.1.13.10 4.2.7.2.686 [id number] [id number] [facility] 2022-03-14 11:15:00 2022-03-14 11:30:00 Office Visit Mamie Barboza [facility] J[facility] 1.2840.114 350.1.13.10 4.2.7.2.686 [id number] [facility] 2022-03-14 11:15:00 2022-03-14 11:15:00 Outpatient R MAMIE BARBOZA [facility] [id number] [facility] 2022-03-14 11:15:00 2022-03-14 11:15:00 Outpatient Amador MAMIE BARBOZA [facility] [id number] [facility] 2022-03-13 09:00:00 2022-03-13 09:00:00 Outpatient R ROSY FLOWERS [facility] [id number] [facility] 2022-03-13 09:00:00 2022-03-13 09:00:00 Outpatient R ROSY FLOWERS [facility] [id number] [facility] 2022-03-13 00:00:00 2022-03-13 00:00:00 Telephone Mariah Baileyig [facility] 1.840.114 350.1.13.10 4.2.7.2.686 [id number] [facility] 2022-03-11 00:00:00 2022-03-11 00:00:00 Orders Only Doctor Unassigned, Medill [facility] 1.2840.114 350.1.13.10 4.2.7.2.686 [id number] [facility] 2022-03-07 00:00:00 2022-03-07 00:00:00 Telephone Chong Bailey [facility] J[facility] 1.2840.114 350.1.13.10 4.2.7.2.686 [id number] [facility] 2022-03-06 00:00:00 2022-03-06 00:00:00 Telephone Mamie Barboza [facility] JERAL[facility]?[place] [facility] 1.2840.114 350.1.13.10 4.2.7.2.686 [id number] [facility] 2022-03-06 00:00:00 2022-03-06 00:00:00 Telephone Chong Bailey [facility] 1.84.114 350.1.13.10 4.2.7.2.686 [id number] [facility] 2022-03-01 00:00:00 2022-03-01 00:00:00 Telephone Medina Ruthie Gloria [facility] 1.84.114 350.1.13.10 4.2.7.2.686 [id number] [facility] 2022-02-28 00:00:00 2022-02-28 00:00:00 Telephone Chong Bailey [facility] 1.840.114 350.1.13.10 4.2.7.2.686 [id number] [facility] 2022-02-27 00:00:00 2022-02-27 00:00:00 Outpatient R CHONG BAILEY [facility] [id number] [facility] 2022-02-27 00:00:00 2022-02-27 00:00:00 Orders Only Doctor Unassigned, Medill [facility] 1.84.114 350.1.13.10 4.2.7.2.686 [id number] [facility] 2022-02-26 00:00:00 2022-02-26 00:00:00 Telephone Leo Chong Shani [facility] 1.84.114 350.1.13.10 4.2.7.2.686 [id number] [facility] 2022-02-20 10:27:42 2022-02-20 23:59:00 Outpatient R CHONG BAILEY [facility] [id number] [facility] 2022-02-20 10:27:42 2022-02-20 23:59:00 Hospital Encounter Chong Bailey [facility] 1.2.840.114 350.1.13.10 4.2.7.2.686 [id number] [facility] 2022-02-20 11:15:00 2022-02-20 11:30:00 Chief Of Vital Statistics Visit Pob, Adc Lab Main Chong Bailey [facility] PROFESSIO NAL BUILDING 1..840.114 350.1.13.10 4.2.7.2.686 [id number] [facility] 2022-02-20 00:00:00 2022-02-20 00:00:00 Telephone Chong Bailey [facility] 1..840.114 350.1.13.10 4.2.7.2.686 [id number] [facility] 2022-02-20 00:00:00 2022-02-20 00:00:00 Orders Only Doctor Unassigned, Medill [facility] 1.2.840.114 350.1.13.10 4.2.7.2.686 [id number] [facility] 2022-02-18 14:30:00 2022-02-18 14:26:49 Outpatient R CHONG BAILEY [facility] [id number] [facility] 2022-02-18 00:00:00 2022-02-18 00:00:00 Telephone Chong Bailey [facility] 1.2.840.114 350.1.13.10 4.2.7.2.686 [id number] [facility] 2022-02-11 00:00:00 2022-02-11 00:00:00 Telephone Ruthie Haney [facility]?[place] [facility] 1.2.840.114 350.1.13.10 4.2.7.2.686 [id number] [id number] [facility] 2022-02-01 00:00:00 2022-02-01 00:00:00 Telephone Chong Bailey [facility]?[place] [facility] 1.284.114 350.1.13.10 4.2.7.2.686 [id number] [facility] 2022-01-31 09:28:33 2022-01-31 23:59:00 Outpatient R CHONG BAILEY [facility] [id number] [facility] 2022-01-31 09:28:33 2022-01-31 23:59:00 Hospital Encounter Chong Bailey [facility] 1.2840.114 350.1.13.10 4.2.7.2.686 [id number] [facility] 2022-01-30 00:00:00 2022-01-30 00:00:00 Orders Only Doctor Unassigned, Medill [facility] 1.2840.114 350.1.13.10 4.2.7.2.686 [id number] [facility] 2022-01-27 21:17:00 2022-01-27 23:49:00 Emergency X SANDRA ANDRADE [facility] ERT [id number] [facility] 2022-01-27 21:17:00 2022-01-27 23:49:00 Emergency Sandra Andrade F [facility] 1.2.840.114 350.1.13.10 4.2.7.2.686 [id number] [id number] [facility] 2022-01-24 00:00:00 2022-01-24 00:00:00 Telephone Chong Bailey [facility] 1.114 350.1.13.10 4.2.7.2.686 [id number] [facility] 2022-01-11 00:00:00 2022-01-11 00:00:00 Telephone Chong Bailey [facility] 1..114 350.1.13.10 4.2.7.2.686 [id number] [facility] 2022-01-10 12:24:00 2022-01-10 13:44:00 Emergency X REKHA CHAU [facility] ERT [id number] [facility] 2022-01-10 12:24:00 2022-01-10 13:44:00 Emergency Rekha Chau [facility] 1..114 350.1.13.10 4.2.7.2.686 [id number] [id number] [facility] 2022-01-10 00:00:00 2022-01-10 00:00:00 Patient Secure Msg Doctor Unassigned, Medill [facility] 1..114 350.1.13.10 4.2.7.2.686 [id number] [facility] 2022-01-07 14:55:00 2022-01-07 23:59:00 Hospital Encounter Chong Bailey [facility] 1.114 350.1.13.10 4.2.7.2.686 [id number] [facility] 2022-01-07 17:40:00 2022-01-07 18:00:00 Urgent Care Provider, [facility] Neli Baron [facility] 1.114 350.1.13.10 4.2.7.2.686 [id number] [facility] 2022-01-07 16:00:00 2022-01-07 16:00:00 Office Visit Bailey Chong Mcleod [facility] 1..840.114 350.1.13.10 4.2.7.2.686 [id number] [facility] 2022-01-07 16:00:00 2022-01-07 15:12:51 Outpatient R BAILEY CHONG [facility] [id number] [facility] 2022-01-07 16:00:00 2022-01-07 15:12:51 Outpatient R LEO CHONG [facility] [id number] [facility] 2022-01-07 00:00:00 2022-01-07 00:00:00 Telephone Ruthie Haney Gloria [facility] 1..840.114 350.1.13.10 4.2.7.2.686 [id number] [facility] 2022-01-03 00:00:00 2022-01-03 00:00:00 Outpatient R ROSY FLOWERS [facility] [id number] [facility] 2021-11-29 14:00:00 2021-11-29 14:00:00 Outpatient R ROSY FLOWERS [facility] [id number] [facility] 2021-11-20 00:00:00 2021-11-20 00:00:00 Telephone Ruthie Haney [facility] 1..840.114 350.1.13.10 4.2.7.2.686 [id number] [id number] [facility] 2021-11-12 00:00:00 2021-11-12 00:00:00 Telephone Chong Bailey [facility] 1..840.114 350.1.13.10 4.2.7.2.686 [id number] [facility] 2021-11-09 09:00:00 2021-11-09 09:00:00 Outpatient CHONG BURTON [facility] [id number] [facility] 2021-11-06 00:00:00 2021-11-06 00:00:00 Refill Mamie [facility] 1..840.114 350.1.13.10 4.2.7.2.686 [id number] [facility] 2021-11-06 00:00:00 2021-11-06 00:00:00 Refill Doctor Unassigned, Medill [facility] 1.840.114 350.1.13.10 4.2.7.2.686 [id number] [facility] 2021-11-05 15:54:00 2021-11-05 20:33:00 Emergency X DEIDRA MEEK [facility] ERT [id number] [facility] 2021-11-05 15:54:00 2021-11-05 20:33:00 Emergency Deidra Meek G [facility] 1..840.114 350.1.13.10 4.2.7.2.686 [id number] [facility] 2021-11-01 00:00:00 2021-11-01 00:00:00 Telephone Tamra [facility] 1..840.114 350.1.13.10 4.2.7.2.686 [id number] [facility] 2021-10-31 14:00:00 2021-10-31 14:00:00 Outpatient ROSY CARLSON [facility] [id number] [facility] 2021-10-22 00:00:00 2021-10-22 00:00:00 Refill Rosy Flowers [facility] 1.2.840.114 350.1.13.10 4.2.7.2.686 [id number] [facility] 2021-10-17 00:00:00 2021-10-17 00:00:00 Telephone Rosy Flowers [facility] 1.2.840.114 350.1.13.10 4.2.7.2.686 [id number] [facility] 2021-10-11 00:00:00 2021-10-11 00:00:00 Telephone Mamie Barboza [facility] 1.2.840.114 350.1.13.10 4.2.7.2.686 [id number] [facility] 2021-10-04 10:45:44 2021-10-04 23:59:00 Hospital Encounter Rosy Flowers [facility] 1.2.840.114 350.1.13.10 4.2.7.2.686 [id number] [facility] 2021-10-04 10:30:00 2021-10-04 10:58:26 Outpatient R ROSY FLOWERS [facility] [id number] [facility] 2021-10-04 10:30:00 2021-10-04 10:58:26 Outpatient R ROSY FLOWERS [facility] [id number] [facility] 2021-10-04 10:11:17 2021-10-04 10:58:26 Office Visit Rosy Flowers [facility] 1.2.840.114 350.1.13.10 4.2.7.2.686 [id number] [facility] 2021-10-03 14:00:00 2021-10-03 14:23:38 Outpatient R MAMIE BARBOZA [facility] [id number] [facility] 2021-10-03 14:00:00 2021-10-03 14:23:38 Outpatient R MAMIE BARBOZA [facility] [id number] [facility] 2021-10-03 14:00:00 2021-10-03 14:23:38 Outpatient R TAMRA MAMIE [facility] [id number] [facility] 2021-10-03 13:57:05 2021-10-03 14:23:38 Office Visit Tamra [facility] 1.2.840.114 350.1.13.10 4.2.7.2.686 [id number] [facility] 2021-10-01 00:00:00 2021-10-01 00:00:00 Telephone Tamra [facility] 1.2.840.114 350.1.13.10 4.2.7.2.686 [id number] [facility] 2021-09-27 13:30:00 2021-09-27 13:30:00 Outpatient R ROSY FLOWERS [facility] [id number] [facility] 2021-09-27 13:30:00 2021-09-27 13:30:00 Outpatient R ROSY FLOWERS [facility] [id number] [facility] 2021-09-25 10:12:06 2021-09-25 23:59:00 Outpatient R TAMRA MAMIE [facility] [id number] [facility] 2021-09-25 10:12:06 2021-09-25 23:59:00 Hospital Encounter Mamie Barboza [facility] 1..840.114 350.1.13.10 4.2.7.2.686 [id number] [facility] 2021-09-25 10:12:06 2021-09-25 23:59:00 Outpatient R MAMIE BARBOZA [facility] [id number] [facility] 2021-09-25 00:00:00 2021-09-25 00:00:00 Orders Only Doctor Unassigned, [facility] 1.20.114 350.1.13.10 4.2.7.2.686 [id number] [facility] 2021-09-25 00:00:00 2021-09-25 00:00:00 Telephone Ruthie Haney [facility] [id number] 350.1.13.10 4.2.7.2.686 [id number] [facility] 2021-09-19 00:00:00 2021-09-19 00:00:00 Telephone Mamie Barboza [facility] Building 1.84.114 350.1.13.10 4.2.7.2.686 [id number] [facility] 2021-09-18 00:00:00 2021-09-18 00:00:00 Patient Secure Msg Doctor Unassigned, [facility] 1.2114 350.1.13.10 4.2.7.2.686 [id number] [facility] 2021-09-15 00:00:00 2021-09-15 00:00:00 Telephone Ruthie Haney [facility] Jerald?[facility] Medical Office Building 1.84114 350.1.13.10 4.2.7.2.686 [id number] [facility] 2021-09-13 13:21:54 2021-09-13 13:51:54 Office Visit Mamie Barboza [facility]?Susana farias Medical Office Building 1..840.114 350.1.13.10 4.2.7.2.686 [id number] [facility] 2021-09-13 13:15:00 2021-09-13 13:49:15 Outpatient R TAMRA [facility] [id number] [facility] 2021-09-13 13:15:00 2021-09-13 13:49:15 Outpatient R TAMRA [facility] [id number] [facility] 2021-09-13 13:15:00 2021-09-13 13:49:15 Outpatient R TAMRA [facility] [id number] [facility] 2021-09-13 00:00:00 2021-09-13 00:00:00 Refill Ruthie Haney [facility]?Susana oneil Medical Office Building 1..840.114 350.1.13.10 4.2.7.2.686 [id number] [id number] [facility] 2021-09-11 09:59:00 2021-09-11 11:16:00 Emergency Guru Meza [facility] 1..840.114 350.1.13.10 4.2.7.2.686 [id number] [id number] [facility] 2021-09-11 09:59:00 2021-09-11 11:16:00 Emergency X GURU MEZA [facility] ERT [id number] [facility] 2021-09-11 09:59:00 2021-09-11 11:16:00 Emergency X GURU MEZA [facility] ERT [id number] [facility] 2021-09-10 00:00:00 2021-09-10 00:00:00 Patient Secure Msg Doctor Unassigned, [facility] 1..840.114 350.1.13.10 4.2.7.2.686 [id number] [facility] 2021-09-05 11:55:00 2021-09-05 14:02:00 Emergency Guru Meza [facility] 1..840.114 350..13.10 4.2.7.2.686 [id number] 084 [id number] [facility] 2021-09-05 09:17:56 2021-09-05 09:32:56 Chief Of Vital Statistics Visit Lab, Ang - Ruthie May Gloria [facility] Medical Office Building 1..840.114 350..13.10 4.2.7.2.686 [id number] [facility] 2021-09-05 08:00:00 2021-09-05 09:16:46 Outpatient R RUTHIE HANEY [facility] [id number] [facility] 2021-09-05 08:00:00 2021-09-05 09:16:46 Outpatient R RUTHIE HANEY [facility] [id number] [facility] 2021-09-05 08:00:00 2021-09-05 09:16:46 Outpatient R MEDINA RUTHIE [facility] ERT [id number] [facility] 2021-09-05 07:55:15 2021-09-05 09:16:46 Office Visit Kirti Haneyfelecia Castro [facility] Medical Office Building 1..840.114 350.1.13.10 4.2.7.2.686 [id number] [facility] 2021-09-05 08:00:00 2021-09-05 08:00:00 Outpatient R MEDINARUTHIE [facility] [id number] [facility] 2021-09-05 00:00:00 2021-09-05 00:00:00 Orders Only Doctor Unassigned, [facility] 1.2840.114 350.1.13.10 4.2.7.2.686 [id number] [facility] 2021-09-03 02:02:00 2021-09-03 02:31:00 Emergency Ruby LINDA DEGROOT [facility] ERT [id number] [facility] 2021-08-31 11:17:00 2021-08-31 11:30:00 Emergency MezaGuru [facility] 1.2840.114 350.1.13.10 4.2.7.2.686 [id number] [facility] 2021-08-31 11:17:00 2021-08-31 11:30:00 Emergency X GURU [facility] ERT [id number] [facility] 2021-08-31 11:17:00 2021-08-31 11:30:00 Emergency X GURU [facility] ERT [id number] [facility] 2021-08-30 10:17:00 2021-08-30 12:25:00 Emergency Leo Timothy [facility] 1.2840.114 350.1.13.10 4.2.7.2.686 [id number] [facility] 2021-08-30 10:17:00 2021-08-30 12:25:00 Emergency X TIMOTHY BAILEY [facility] ERT [id number] [facility] 2021-08-30 10:17:00 2021-08-30 12:25:00 Emergency X TIMOTHY BAILEY [facility] ERT [id number] [facility] 2021-08-26 12:18:00 2021-08-26 12:26:00 Emergency Prosper Sims Sandra J [facility] 1.2.840.114 350.1.13.10 4.2.7.2.686 [id number] [facility] 2021-08-26 12:18:00 2021-08-26 12:26:00 Emergency X LINDA DEGROOT [facility] ERT [id number] [facility] 2021-08-26 12:18:00 2021-08-26 12:26:00 Emergency X LINDA DEGROOT [facility] ERT [id number] [facility] 2021-08-26 12:18:00 2021-08-26 12:26:00 Emergency X LINDA DEGROOT [facility] ERT [id number] [facility] 2021-08-23 14:09:00 2021-08-23 14:43:00 Emergency Linda Degroot [facility] 1.2.840.114 350.1.13.10 4.2.7.2.686 [id number] [id number] [facility] 2021-08-23 14:09:00 2021-08-23 14:43:00 Emergency X LINDA DEGROOT [facility] ERT [id number] [facility] 2021-08-23 14:09:00 2021-08-23 14:43:00 Emergency X LINDA DEGROOT [facility] ERT [id number] [facility] 2021-08-09 20:23:00 2021-08-09 21:57:00 Emergency Meghan Harvey [facility] 1.2.840.114 350.1.13.10 4.2.7.2.686 [id number] [id number] [facility] 2021-08-09 16:53:00 2021-08-09 17:40:00 Emergency X [facility] ERT [id number] [facility] 2021-08-09 16:53:00 2021-08-09 17:40:00 Emergency [facility] 1.2.840.114 350.1.13.10 4.2.7.2.686 [id number] [facility] 2021-08-09 16:53:00 2021-08-09 17:40:00 Emergency X [facility] ERT [id number] [facility] 2021-08-05 01:08:00 2021-08-05 04:43:00 Emergency Rekha Chau Rohith [facility] 1.2.840.114 350.1.13.10 4.2.7.2.686 [id number] [facility] 2021-08-05 01:08:00 2021-08-05 04:43:00 Emergency X REGIS CORTEZ [facility] ERT [id number] [facility] 2021-06-24 12:31:00 2021-06-24 14:00:00 Emergency Janet Love [facility] 1.2.840.114 350.1.13.10 4.2.7.2.686 [id number] 084 [id number] [facility] 2021-06-24 12:31:00 2021-06-24 14:00:00 Emergency X Janet LOVE [facility] ERT [id number] [facility] 2021-06-24 12:31:00 2021-06-24 14:00:00 Emergency X Janet LOVE [facility] ERT [id number] [facility] 2021-06-19 11:32:00 2021-06-19 14:24:00 Emergency WeeksChay [facility] 1.2.840.114 350.1.13.10 4.2.7.2.686 [id number] [id number] [facility] 2021-06-19 11:32:00 2021-06-19 14:24:00 Emergency X CRISTA WEEKSYA [facility] ERT [id number] [facility] 2021-06-02 12:03:00 2021-06-02 12:24:00 Emergency Barry Gomez [facility] 1.2.840.114 350.1.13.10 4.2.7.2.686 [id number] [facility] 2021-06-02 12:03:00 2021-06-02 12:24:00 Emergency X BARRY GOMEZ [facility] ERT [id number] [facility] 2021-06-02 12:03:00 2021-06-02 12:24:00 Emergency X BARRY GOMEZ [facility] ERT [id number] [facility] 2021-05-22 09:22:00 2021-05-22 10:24:00 Emergency Brian Gray [facility] 1.2.840.114 350.1.13.10 4.2.7.2.686 [id number] 084 [id number] 2021-05-22 09:22:00 2021-05-22 10:24:00 Emergency Brian Gray [facility] 1.2.840.114 350.1.13.10 4.2.7.2.686 [id number] 084 [id number] [facility] 2021-05-22 09:22:00 2021-05-22 10:24:00 Emergency X BRIAN GRAY [facility] ERT [id number] [facility] 2021-05-22 09:22:00 2021-05-22 10:24:00 Emergency X BRIAN GRAY [facility] ERT [id number] [facility] 2021-04-05 11:37:00 2021-04-05 13:25:00 Emergency Meghan Harvey [facility] 1.2.840.114 350.1.13.10 4.2.7.2.686 [id number] 2021-04-05 11:37:00 2021-04-05 13:25:00 [facility] 1.2.840.114 350.1.13.10 4.2.7.2.686 [id number] 084 [id number] [facility] 2021-04-05 11:37:00 2021-04-05 13:25:00 Emergency X MEGHAN HARVEY [facility] ERT [id number] [facility] 2021-04-05 11:37:00 2021-04-05 13:25:00 Emergency X MEGHAN HARVEY [facility] ERT [id number] [facility] 2021-03-16 08:30:00 2021-03-16 10:05:00 Emergency Linda Degroot [facility] 1.2.840.114 350.1.13.10 4.2.7.2.686 [id number] 084 [id number] 2021-03-16 08:30:00 2021-03-16 10:05:00 Emergency Linda Degroot [facility] 1.2.840.114 350.1.13.10 4.2.7.2.686 [id number] 084 [id number] [facility] 2021-03-16 00:00:00 2021-03-16 00:00:00 Orders Only Doctor Unassigned, [facility] 1.2.840.114 350.1.13.10 4.2.7.2.686 [id number] 2021-03-16 00:00:00 2021-03-16 00:00:00 Orders Only Doctor Unassigned, [facility] 1.2.840.114 350.1.13.10 4.2.7.2.686 [id number] [id number] [facility] 2021-03-02 00:00:00 2021-03-02 00:00:00 [facility]phone [facility] 1.2.840.114 350.1.13.10 4.2.7.2.686 [id number] 2021-03-02 00:00:00 2021-03-02 00:00:00 Telephone Chong [facility] 1.2.840.114 350.1.13.10 4.2.7.2.686 [id number] [facility] 2021-02-17 17:20:00 2021-02-17 18:16:00 Emergency Linda Degroot [facility] 1.2.840.114 350.1.13.10 4.2.7.2.686 [id number] [id number] 2021-02-17 17:20:00 2021-02-17 18:16:00 Emergency Linda Degroot [facility] 1.2.840.114 350.1.13.10 4.2.7.2.686 [id number] [id number] [facility] 2021-02-17 17:20:00 2021-02-17 18:16:00 Emergency X LINDA DEGROOT [facility] ERT [id number] [facility] 2021-02-17 17:20:00 2021-02-17 18:16:00 Emergency X LINDA DEGROOT [facility] ERT [id number] [facility] 2021-02-12 11:02:00 2021-02-12 11:46:00 Emergency Chay Weeks [facility] 1.2.840.114 350.1.13.10 4.2.7.2.686 [id number] [id number] 2021-02-12 11:02:00 2021-02-12 11:46:00 Emergency X CHAY WEEKS [facility] ERT [id number] [facility] 2021-02-12 11:02:00 2021-02-12 11:46:00 Emergency X CHAY WEEKS [facility] ERT [id number] [facility] 2021-02-12 11:02:00 2021-02-12 11:46:00 Emergency Chay Weeks [facility] 1.2.840.114 350.1.13.10 4.2.7.2.686 [id number] [id number] [facility] 2020-09-28 00:00:00 2020-09-28 [facility]:00[facility] 1.2.840.114 350.1.13.10 4.2.7.2.686 [id number] 2020-09-28 00:00:00 2020-09-28 00:00:00 [facility]ie [facility] 1.2.840.114 350.1.13.10 4.2.7.2.686 [id number] [facility] 2020-07-18 11:27:00 2020-07-18 12:25:00 Emergency Brian Gray [facility] 1.2.840.114 350.1.13.10 4.2.7.2.686 [id number] 084 [id number] 2020-07-18 11:27:00 2020-07-18 12:25:00 Emergency Isaac [facility] 1.2.840.114 350.1.13.10 4.2.7.2.686 [id number] 084 [id number] [facility] 2020-07-14 10:35:00 2020-07-14 11:01:00 Emergency Brian Gray [facility] 1.2.840.114 350.1.13.10 4.2.7.2.686 [id number] [id number] 2020-07-14 10:35:00 2020-07-14 11:01:00 Emergency X BRIAN GRAY [facility] ERT [id number] [facility] 2020-07-14 10:35:00 2020-07-14 11:01:00 Emergency Isaac [facility] 1.2.840.114 350.1.13.10 4.2.7.2.686 [id number] [id number] [facility] 2020-07-06 00:00:00 2020-07-06 00:00:00 Letter (Out) Johnna Mcallister [facility] 1.2.840.114 350.1.13.10 4.2.7.2.686 [id number] 2020-07-06 00:00:00 2020-07-06 00:00:00 Letter (Out) Johnna Mcallister [facility] 1.2.840.114 350.1.13.10 4.2.7.2.686 [id number] [facility] 2020-07-03 14:13:00 2020-07-03 17:14:00 Emergency Janet Love [facility] 1.2.840.114 350.1.13.10 4.2.7.2.686 [id number] 084 [id number] 2020-07-03 14:13:00 2020-07-03 17:14:00 Emergency Janet Love [facility] 1.2.840.114 350.1.13.10 4.2.7.2.686 [id number] 084 [id number] [facility] 2020-06-18 00:00:00 2020-06-18 00:00:00 Orders Only Doctor Unassigned, [facility] 1.2.840.114 350.1.13.10 4.2.7.2.686 [id number] 2020-06-18 00:00:00 2020-06-18 00:00:00 Orders Only Doctor Unassigned, Med[facility] 1.2.840.114 350.1.13.10 4.2.7.2.686 [id number] [id number] [facility] 2020-06-11 07:22:31 2020-06-11 07:47:00 Emergency Brian Gray Donnell [facility] 1.2.840.114 350.1.13.10 4.2.7.2.686 [id number] 084 [id number] 2020-06-11 07:22:31 2020-06-11 07:47:00 Emergency Brian Gray Donnell [facility] 1.2.840.114 350.1.13.10 4.2.7.2.686 [id number] 084 [id number] [facility] 2020-06-11 00:00:00 2020-06-11 00:00:00 Orders Only Doctor Unassigned, Med[facility] 1.2.840.114 350.1.13.10 4.2.7.2.686 [id number] [id number] 2020-06-11 00:00:00 2020-06-11 00:00:00 Orders Only Doctor Unassigned, Med[facility] 1.2.840.114 350.1.13.10 4.2.7.2.686 [id number] [id number] [facility] 2020-06-03 15:21:35 2020-06-03 18:43:00 Emergency Chay Weeks [facility] 1.2.840.114 350.1.13.10 4.2.7.2.686 [id number] 084 [id number] 2020-06-03 15:21:35 2020-06-03 18:43:00 Emergency Chay Weeks [facility] 1.2.840.114 350.1.13.10 4.2.7.2.686 [id number] 084 [id number] [facility] 2020-06-03 00:00:00 2020-06-03 00:00:00 Orders Only Doctor Unassigned, Med[facility] 1.2.840.114 350.1.13.10 4.2.7.2.686 [id number] [id number] 2020-06-03 00:00:00 2020-06-03 00:00:00 Orders Only Doctor Unassigned, Med[facility] 1.2.840.114 350.1.13.10 4.2.7.2.686 [id number] [id number] [facility] 2020-05-31 00:00:00 2020-05-31 00:00:00 Telephone Mamie [facility] 1.2.840.114 350.1.13.10 4.2.7.2.686 [id number] 2020-05-31 00:00:00 2020-05-31 00:00:00 Telephone Mamie Barboza [facility] 1.2.840.114 350.1.13.10 4.2.7.2.686 [id number] [facility] 2020-05-19 00:00:00 2020-05-19 00:00:00 Refill Mamie Barboza [facility] [place] 1.2.840.114 350.1.13.10 4.2.7.2.686 [id number] [facility] 2020-05-18 13:35:31 2020-05-18 23:59:00 Outpatient R CHONG BAILEY [facility] [id number] [facility] 2020-05-18 13:35:00 2020-05-18 23:59:00 Hospital Encounter Chong Bailey [facility] 1.2.840.114 350.1.13.10 4.2.7.2.686 [id number] [facility] 2020-05-18 15:22:03 2020-05-18 16:00:04 Office Visit BarbozaMamie [facility] 1.2.840.114 350.1.13.10 4.2.7.2.686 [id number] 2020-05-18 15:22:03 2020-05-18 16:00:04 Office Visit Tamra Chong Deras [facility] 1.2.840.114 350.1.13.10 4.2.7.2.686 [id number] [facility] 2020-05-18 00:00:00 2020-05-18 00:00:00 Telephone Leo Chong Shani [facility] 1.2.840.114 350.1.13.10 4.2.7.2.686 [id number] [facility] 2020-05-18 00:00:00 2020-05-18 00:00:00 Pete [facility]bozaMamie [facility] [place] 1.2.840.114 350.1.13.10 4.2.7.2.686 [id number] [facility] 2020-05-13 09:27:28 2020-05-13 10:04:00 Emergency Linda Degroot [facility] 1.2.840.114 350.1.13.10 4.2.7.2.686 [id number] [id number] [facility] 2020-05-13 09:16:00 2020-05-13 09:16:00 Emergency X [facility] ERT [id number] [facility] 2020-05-08 00:00:00 2020-05-08 00:00:00 Orders Only Doctor Unassigned, Med[facility] 1.2.840.114 350.1.13.10 4.2.7.2.686 [id number] [facility] 2020-05-07 07:13:15 2020-05-07 07:48:00 Emergency Brian Gray [facility] 1.2.840.114 350.1.13.10 4.2.7.2.686 [id number] 084 [id number] [facility] 2020-05-07 07:13:15 2020-05-07 07:13:15 Emergency X BRIAN GRAY [facility] ERT [id number] [facility] 2020-04-09 19:10:48 2020-04-09 20:54:00 Emergency Jacqueline Luu [facility] 1.2.840.114 350.1.13.10 4.2.7.2.686 [id number] [facility] 2020-04-09 19:04:00 2020-04-09 19:04:00 Emergency X [facility] ERT [id number] [facility] 2019-08-12 19:51:41 2019-08-12 20:52:00 Emergency Bruce Robins [facility] 1.2.840.114 350.1.13.10 4.2.7.2.686 [id number] 084 [id number] [facility] 2019-07-21 00:00:00 2019-07-21 00:00:00 Transition of Care [address] 1.2.840.114 350.1.13.10 4.2.7.2.686 [id number] [facility] 2019-07-17 11:29:01 2019-07-20 16:22:00 Hospital Encounter Meghan Harvey, Kali Perez, Roman [facility] 1.2.840.114 350.1.13.10 4.2.7.2.686 [id number] [facility] 2019-06-29 09:20:31 2019-06-29 10:41:00 Emergency Linda Degroot [facility] 1.2.840.114 350.1.13.10 4.2.7.2.686 [id number] [id number] [facility] 2019-06-29 00:00:00 2019-06-29 00:00:00 Orders Only Doctor Unassigned, [facility] 1.2.840.114 350.1.13.10 4.2.7.2.686 [id number] [id number] [facility] Results Test Description Test Time Test Comments Results Result Co [facility] [id number] 18:29:00* Test Item Value Reference Range Interpretation [...] 3267) Lab Interpretation (test cod e = 83308-7) Abnormal [facility] URINALYSIS W SPECIFIC [id number] 18:29:00* Test Item Value Reference Range Interpretation [...] 3267) Lab Interpretation (test cod e = 13203-7) Abnormal [facility] [id number] 15:31:00* Test Item Value Reference Range Interpretation Comme nts POCT PREG (test code = 1605) Negative On board controls acceptable with C Line (test code = 3574) Yes POCT PREG LOT # (test code = 3575) POCT PREG TEST DATE ( test code = 3576) [facility] [id number] 15:31:00* Test Item Value Reference Range Interpretation Comme nts POCT PREG (test code = 1605) Negative On board controls acceptable with C Line (test code = 3574) Yes POCT PREG LOT # (test code = 3575) POCT PREG TEST DATE ( test code = 3576) [facility] [id number] 15:31:00* Test Item Value Reference Range Interpretation Comme nts POCT PREG (test code = 1605) Negative On board controls acceptable with C Line (test code = 3574) Yes POCT PREG LOT # (test code = 3575) POCT PREG TEST DATE ( test code = 3576) [facility] URINALYSIS W SPECIFIC [id number] 19:29:00* Test Item Value Reference Range Interpretation [...] clear Lab Interpretation (test cod e = 76853-3) Abnormal [facility] [id number] 19:28:00* Test Item Value Reference Range Interpretation Comme nts POCT PREG (test code = 1605) Negative On board controls acceptable with C Line (test code = 3574) Yes POCT PREG LOT # (test code = 3575) POCT PREG TEST DATE ( test code = 357) Lab Interpretation (test cod e = 25969-8) Normal [facility] URINALYSIS W SPECIFIC [id number] 16:43:00* Test Item Value Reference Range Interpretation [...] clear Lab Interpretation (test cod e = 23899-3) Abnormal [facility] URINALYSIS W SPECIFIC [id number] 16:43:00* Test Item Value Reference Range Interpretation [...] clear Lab Interpretation (test cod e = 37452-5) [facility]IFIC [id number] 16:43:00* Test Item Value Reference Range Interpretation [...] clear Lab Interpretation (test cod e = 69423-6) [facility]normal [facility] [id number] 16:02:39* Test Item Value Reference Range Interpretation Comments TROPONIN I (test code = 9386494871) 0.014 ng/mL See_Comment [Automated message] The system [...] of biotin. Lab Interpretation (test code = 67540-5) Normal [facility] 15:37:17* Test Item Value Reference Range Interpretation Comme nts LIPASE (test code = 8507350198) 80 U/L 0-220 Lab Interpretation (test cod e = 49139-8) Normal [facility]MINAL [id number] 15:37:17* Test Item Value Reference Range Interpretation Comme nts NT-proBNP (test code = 5761411963) 145 pg/mL See_Comment H [Automated message] The system which generated this result transmitted reference range: <=125. The reference range was not used to interpret this result as normal/abnormal. DUNCAN (test code = DUNCAN) Biotin has been reported to cause a negative bias, interpret results relative to patient's use of biotin. Lab Interpretation (test code = 69526-9) Abnormal [facility] Center[facility]ID STIMULATING [id number] 15:37:17 * Test Item Value Reference Range Interpretation Comme nts TSH (test code = 8520678405) See_Comment Biotin has been reported to cause a negative bias, interpret results relative to patient's use of biotin. [Automated message] The system which generated this result transmitted reference range: 0.45 - 4.70 mIU/L. The reference range was not used to interpret this result as normal/abnormal. Lab Interpretation (test code = 31159-6) [facility]:37:17* Test Item Value Reference Range Interpretation Comme nts MAGNESIUM (test code = 3680257015) 1.6 mg/dL 1.7-2.4 L Lab Interpretation (test cod e = 64673-8) [facility] (66912)2022-09-01 15:37:16* Test Item Value Reference Range Interpretation Comme nts NA (test code = 1708037841) 139 mmol/L 135-145 K (test code = 7059644745) 4.0 mmol/L 3.5-5 CL (test code = 3650258116) 100 mmol/L 98-108 CO2 TOTAL (test code = 2959301801) 27 mmol/L 23-31 AGAP (test code = 2401962318) 2-16 BUN (test code = 5681682167) 17 mg/dL 7-23 GLUCOSE (test code = 9021754064) 154 mg/dL 70-110 H CREATININE (test code = 5796861785) 0.62 mg/dL 0.5-1.04 TOTAL BILI (test code = 4267766106) 0.9 mg/dL 0.1-1.1 CALCIUM (test code = 0117591062) 9.7 mg/dL 8.6-10.6 T PROTEIN (test code = 8382313835) 7.3 g/dL 6.3-8.2 ALBUMIN (test code = 8454225757) 4.6 g/dL 3.5-5 ALK PHOS (test code = 6558496361) 88 U/L 34-122 ALTv (test code = 1742-6) 23 U/L 5-35 AST(SGOT) (test code = 3712193106) 27 U/L 13-40 eGFR (test code = 4841161751) mL/min/1.73m2 DUNCAN (test code = DUNCAN) Association [...] imaging tests). Lab Interpretation (test code = 63709-4) [facility] 15:26:13 ALCOHOL<10mg/dL09/01/2022 10:26 AM [facility]<10 Eowgchsh43-650 Toxic>100 Depression of PROFESSIONAL SHOPPER>400 Fatalities ReportedWoodland Heights Medical CenterD-MTNAQ9368-62-11 14:51:34* Test Item Value Reference Range Interpretation Comments D-DIMER (test code = 3995033413) See_Comment H [Automated message] The system which [...] a diagnosis. Lab Interpretation (test code = 63032-0) Abnormal [facility] CenterCBC WITH YERL9147-51-23 14:40:57* Test Item Value Reference Range Interpretation Comme nts WBC (test code = 6690-2) See_Comment [Automated GoodClic] The system which generated this result transmitted reference range: 4.30 - 11.10 10*3/?L. The reference range was not used to interpret this result as normal/abnormal. RBC (test code = 789-8) See_Comment [Automated GoodClic] The system which generated this result transmitted [...] 34.6 g/dL 31.6-35.1 RDW-SD (test code = 05017-8) 49.3 fL 39-49.9 RDW-CV (test code = 788-0) 14.8 % 12-15.5 PLT (test code = 777-3) See_Comment [Automated messa ge] The system which generated this result transmitted reference range: 166 - 358 10*3/?L. The reference range was not used to interpret this result as normal/abnormal. MPV (test code = 41937-2) 9.5 fL 9.5-12.9 NRBC/100 WBC (test code = 1189000038) See_Comment [Automated RightsFlow ssage] The system which generated this result transmitted reference range: 0.0 - 10.0 /100 WBCs. The reference range was not used to interpret this result as normal/abnormal. NRBC x10^3 (test code = 7083152843) See_Comment [Automated messa ge] The system which generated this result transmitted reference range: 10*3/?L. The reference range was not used to interpret this result as normal/abnormal. GRAN MAT (NEUT) % (test code = 770-8) 58.0 % IMM GRAN % (test code = 2022620074) 0.20 % LYMPH % (test code = 736-9) 35.7 % MONO % (test code = 5905-5) 5.6 % EOS % (test code = 713-8) 0.2 % BASO % (test code = 706-2) 0.3 % GRAN MAT x10^3(ANC) (test code = 9720872615) 5.10 10*3/uL 1.88-7.09 IMM GRAN x10^3 (test code = 5393117326) 0-0.06 LYMPH x10^3 (test code = 731-0) 3.14 10*3/uL 1.32-3.29 MONO x10^3 (test code = 742-7) 0.49 10*3/uL 0.33-0.92 EOS x10^3 (test code = 711-2) 0.03-0.39 L BASO x10^3 (test code = 704-7) 0.03 10*3/uL 0.01-0.07 Lab Interpretation (test code = 95525-7) Abnormal [facility] CenterCom[facility] Metabolic Teyri1350-16-80 09:02:00* Test Item Value Reference Range Interpretation [...] = ALP) 80 U/L 46-116 N Ethanol Pserd8132-47-62 09:02:00* Test Item Value Reference Range Interpretation Comme nts Ethanol (test code = ETOH) < 3 mg/dL HCG, Serum Qual (LAB)2021-08-10 09:02:00* Test Item Value Reference Range Interpretation Comme nts HCG, Serum Qual (LAB) (test code = HCGQ) Negative Negative Coronavirus PCR, COVID19 Wzxhj0318-30-23 09:02:00* Test Item Value Reference Range Interpretation Comme nts Coronavirus PCR, COVID19 Rapid (test code = SARSCOV2) For use under Emergency Use Authorization (EUA) only. Coronavirus PCR, COVID19 Rapid (test code = QWXQVGU35.1) Reference Range: Negative SARS-CoV-2 PCR Result: (test code = SARS-CoV-2 PCR Result:) Negative by PCR COVID-19 Status: AsymptomaticComplete Blood Count Auto Zzxu5971-19-98 09:02:00* Test Item Value Reference Range Interpretation [...] = NRBCP) 0 % CT abdomen pelvis [facility] [address] [place] [address] Patient Name: Masha Kilgore Medical Record#: [id number] Address: [address] [place] [address] City/State/Zip: [place] [address]: Chrsity Partida DO Insurance: [employer] Medicaid /Age/Sex: 1960/60/F Self Pay Admit/Reg Date: 08/10/[address]: Christy Partida DO Location: [facility]/ PCP: Pcp-Md CHRISTOPHER Vallejo Date of Service: 08/10/21 Order (s): CT abdomen pelvis wo con CPT Code: 31015 Report Number: [id number] Reason for Exam: Flank Pain EXA MINATION: [...] normal in size and contour. No hepatic mass is identified. The bile ducts are of normal [...] is noted. Bones: No acute fracture or suspiciousbony lesion is identified. IMPRESSION: No acute abdominal or pelvic finding is identified. Electronically signed by: Oracio Chau MD 08/10/2021 12:55 PM CDT Dictated By: Gabe Chau MD 08/10/21 1236 Signed By: Oracio Chau MD 08/10/21 1236 TD/TT: 08/10/21 1236 Tech: S VCRPACS cc: PCPNO; RASAM02* Christy Partida DO; Pcp-Md CHRISTOPHER Vallejo Notes Date/Time Note Provider Source 2024-02-11 09:56:30 xF6JLxWP+sG4FrjaBeAMpGnFSq+YAhNYnG3 SpsYKktvF6kHz6ofD5041KrcRX5Ty2073-5 09:56:30 Outpatient Medication DetailDisp Refills Start End DAWHYDROcodone-acetaminophen 10-325 mg tablet 120 tablet 0 01/14/2024 -- --Sig: Take 1 tablet by mouth every 6 (six) hours as needed for Pain (scale 4-6). Indications: chronic painSent to pharmacy as: hydrocodone 10 mg-acetaminophen 325 mg tablet (NORCO)Class: eRXEarliest Fill Date: 01/14/2024oute: OralOrder: [id number]/Time Signed: 01/14/2024 10:14E-Prescribing Status: Receipt confirmed by pharmacy (01/14/2024 10:14 AM PORTABLE TRACK LINE MARKER)Controlled? TING ClassYes [1] C-II High Abuse Potential [2]Associated DiagnosesChronic bilateral low back pain without sciatica - PrimaryOrder Associated ProvidersName NPIOrdering Provider Nghia Menendez MD [[id number]] [id number] Provider Nghia Menendez MD [[id number]] [id number] [facility] [place], [place] - [address] [place] [address] AT [facility] & [address]Recent VisitsDate Type Provider Dept01/14/24 Office Visit Nghia Menendez MD [facility]12/15/23 Office Visit Nghia Menendez MD [facility]11/12/23 Office Visit Nghia Menendez MD [facility]10/02/23 Office Visit Nghia Menendez MD [facility]09/04/23 Office Visit Nghia Menendez MD [facility]08/06/23 Office Visit Nghia Menendez MD [facility]07/09/23 Office Visit Nghia Menendez MD [facility] Med06/09/23 Office Visit Nghia Menendez MD [facility]03/26/23 Office Visit Nghia Menendez MD [facility] Med02/24/23 Office Visit Nghia Menendez MD [facility] MedShowing recent visits within past 540 days with a meds authorizing provider and meeting all other requirementsFuture AppointmentsDate Type Provider Dept03/15/24 Appointment Nghia Menendez MD [facility] MedShowing future appointments within next 150 days with a meds authorizing provider and meeting all other requirements 17051-1Tajscalsz encounter UpevUX8833-89-88V15:56:39Telephone encounter NoteTXT1.2.840.908613.1.13.104.2.7. 2.078886|[id number] for patient qzhj01296-8GkyhOAEORRMLMDHOsojvivrm C-CDA narrative text[address] PyhdTepsdxoqjBneqfwlnvEFOY510661608 5GVBDVRSLNOUCTVBXHGPHDP3192-83-29Z0 9:56:391.2.840.816513.1.72.3.15|1.2 .840.873598.1.13.104.2.7.2.727879_2 [id number] [facility] 2024-02-11 09:55:45 UNmS2NHVVuUzAb2SRxBOrXYwqUmG9+c3UyT tBUuQ+7Qq9iMfLwXItJzXeIzZLWLH3492-1 02-10T09:55:45 Notified patient we received her refill request to allow time for to review it. She verbalized understanding.Jenny Dunn LVN 02/11/2024 9:56 AM 94980-1Wsrabfush encounter GuhsYR0429-44-45R34:56:39Telephone encounter NoteTXT1.2.840.766336.1.13.104.2.7. 2.280640|3329099851HXMamtfegcp for patient ugdy83016-0XyleRWBBZEVBVYIGjxqagbhx C-CDA narrative text[id number] 6NHZGSXIAMTVRNLYZKDBCHE3684-84-76N1 9:56:391.2.840.918368.1.72.3.15|1.2 .840.046831.1.13.104.2.7.2.727879_2 [id number] [facility] 2024-02-11 09:53:28 w+x7jlVf9/uCD+pDNrEdOdVO39/wLXus0Gw 10WSYI1G0odtMnRUDVoQovXInMJc18382-6 09:53:28 Copied from [facility] #[id number]. Topic: Clinical - Order>> Feb 11, 2024 9:52 AM Patient Jammer Hooker wrote:,Masha Kilgore is a 63 year old femalePatient calling in to check if Rx was sent to pharmacy; advised her of refill request turnaround time. 18378-9Wwosnoexg encounter QjuaSY9778-63-50Z51:54:07Telephone encounter NoteTXT1.2.840.522199.1.13.104.2.7. 2.156576|[id number] for patient dmlc71774-9QdxuQPWLBCQDTIUMrvfismua C-CDA narrative ffga473196382Jronyzt J [id number] 7VJAXRIKSRCUDKNNNGVHAVK8140-48-32V6 9:54:071.2.840.441804.1.72.3.15|1.2 .840.263502.1.13.104.2.7.2.727879_2 [id number] Precious Arora [facility] 2024-02-11 09:33:50 /XifOVrqJ4q6lg7dJ4vyP94XQ7oeCtvgdh4 2xso9dxPxaQFzlUT+HdjS0bfBAyzs0370-6 09:33:50 Outpatient Medication DetailDisp Refills Start End DAWHYDROcodone-acetaminophen 10-325 mg tablet 120 tablet 0 01/14/2024 -- --Sig: Take 1 tablet by mouth every 6 (six) hours as needed for Pain (scale 4-6). Indications: chronic painSent to pharmacy as: hydrocodone 10 mg-acetaminophen 325 mg tablet (NORCO)Class: eRXEarliest Fill Date: 01/14/2024oute: OralOrder: [id number]/Time Signed: 01/14/2024 10:14E-Prescribing Status: Receipt confirmed by pharmacy (01/14/2024 10:14 AM PORTABLE TRACK LINE MARKER)Controlled? TING ClassYes [1] C-II High Abuse Potential [2]Associated DiagnosesChronic bilateral low back pain without sciatica - PrimaryOrder Associated ProvidersName NPIOrdering Provider Nghia Menendez MD [[id number]] [id number] Provider Nghia Menendez MD [[id number]] [id number] [facility] [place] [place] [facility] & [address] DRRecent VisitsDate Type Provider Dept01/14/24 Office Visit Nghia Menendez MD [facility] Fam Med12/15/23 Office Visit Nghia Menendez MD [facility] Med11/12/23 Office Visit Nghia Menendez MD [facility] Med10/02/23 Office Visit Nghia Menendez MD [facility]am Med09/04/23 Office Visit Nghia Menendez MD [facility] Fam Med08/06/23 Office Visit Nghia Menendez MD [facility] Med07/09/23 Office Visit Nghia Menendez MD [facility] Med06/09/23 Office Visit Nghia Menendez MD [facility] Med03/26/23 Office Visit Nghia Menendez MD [facility] Med02/24/23 Office Visit Nghia Menendez MD [facility] MedShowing recent visits within past 540 days with a meds authorizing provider and meeting all other requirementsFuture AppointmentsDate Type Provider Dept03/15/24 Appointment Nghia Menendez MD [facility] MedShowing future appointments within next 150 days with a meds authorizing provider and meeting all other requirements 20260-3Nvhzowsjy encounter YuzuXR4134-46-53S80:34:08Telephone encounter NoteTXT1.2.840.235040.1.13.104.2.7. 2.532724|[id number] for patient cfrz77775-8DosyOFKNVJMZHTWPyaknldyr C-CDA narrative text[address] RapxDttqjshexCbpcwywuyTKAG848683845 4BZVQGSFTFQGZHFIDMVUYDR4011-89-31R1 9:34:081.2.840.969608.1.72.3.15|1.2 .840.079399.1.13.104.2.7.2.727879_2 [id number] [facility] 2024-02-11 09:26:09 PrrOFiYGDn7ihR2qd2OinE9PDRswUVdpMM8 WL5l9oFO2UGp7omHv+1xtaF9qtf3p0329-6 09:26:09 Pt requesting refillHYDROcodone-acetaminophen 10-325 mg tabletHEB [facility] [place], [place] - [address] [place] [address] GuzmanPhone: Kfc: [phone] signed by Jerome Cuevas at 02/11/2024 9:26 AM IXC05740-3Yuoevcxlz encounter YwqjMP3153-71-36A08:26:40Telephone encounter NoteTXT1.2.840.253686.1.13.104.2.7. 2.210444|3466834342QJBuglarwic for patient fbau71091-5BlxvXAXANNEFURYAjxiciuqo C-CDA narrative iigw26778775Upxfyd[address] JnqzXkxjxbsczPscignbzdXMNM195743758 6BXRYSAFXKIKIRFSBHEYCDF5165-10-99V9 9:26:401.2.840.687894.1.72.3.15|1.2 .840.009349.1.13.104.2.7.2.727879_2 [id number] Jerome Coloradonandez [facility] 2023-06-24 12:14:22 Bik/BhQ0frvZ83Yx9ut0ggLG27+4uEpzpEV a3rpcrx701FZwBc2KP5PCcKZTCMJF5483-4 06-24T12:14:22 [employer] Insurance denied generic symbicort inhaler. Re submitted as brand name medically necessary in attempt for coverage. Will check back with pharmacy this afternoon. 40432-0Pglatzati encounter FozdQZ3552-12-69T01:15:29Telephone encounter NoteTXT1.2.840.843181.1.13.104.2.7. 2.834571|7140464499RMAtgawlrnf for patient qssn58573-9JkwtUYTOAMQDNY[address] FriuTfadytgnwLyddxyifwJOOZ085000990 8YXKOAVSVEHZCZNZMPYKNEH7269-81-92N6 2:15:291.2.840.160712.1.72.3.15|1.2 .840.432482.1.13.104.2.7.2.727879_1 [id number] [facility] 2023-06-23 06:12:19 Vx5v1LBUiyGU6lCyjayYiNHSpsFqRK0aVCc Kkh14qtTkDStxOXKojrGEg9AOkZIS9272-4 06-23T06:12:19 That's good. 06808-5Yeahfirgk encounter YebwKC1323-56-82W16:12:32Telephone encounter NoteTXT1.2.840.128291.1.13.104.2.7. 2.458167|8585021679IHCjcjtpdem for patient idxd19347-0InjgBOXUQOGUAI[address]Gal[address]onGalvestonTXTX[address] 7ECMFZPNKSMBHTLSTIBDCRN7848-36-78S3 6:12:321.2.840.676289.1.72.3.15|1.2 .840.681301.1.13.104.2.7.2.727879_1 [id number] [facility] 2023-06-19 14:15:58 b4laIqYGTtZs7ZAv4VRaLSr7GZGGxK34/qU 8jG8Z4EP6Vg1aY5rzz3NCDZyB1wWE3076-7 06-19T14:15:58 Spoke to the daughter and she wants a provider referral and any other referrals for any other services that her mother can be assisted with. Told her to call her moms insurance to see who is in network with them and I also gave her Department of Aging Disability Services number as well. Tayla Shanks MA 06/19/2023 2:20 PM 70837-3Xbblagskr encounter GnxbKS9640-01-23W92:21:24Telephone encounter NoteTXT1.2.840.623612.1.13.104.2.7. 2.660712|0236650014RJLhroeehbc for patient ubje49499-0GmhuJX032029521Afynboo K [address]TXTX[address] 5VYIHTHOGFUHEHRGQYOSWTF8887-55-79U2 4:21:241.2.840.019204.1.72.3.15|1.2 .840.032655.1.13.104.2.7.2.727879_1 [id number] Tayla Gonzales [facility] 2023-06-16 10:26:33 c0baipZkp1w86f3Grkqpaj7fIX8sRxQSwYU mqTlZmzYC7l9nMV6nCGrcYSRAREJL4314-5 06-16T10:26:33 She is looking for some one to help with cooking, cleaning, etc. I don't think that service is available here. 52696-9Rlklkpfbf encounter UkweXQ6305-23-14Z92:28:06Telephone encounter NoteTXT1.2.840.072667.1.13.104.2.7. 2.789174|9867430503ODMrgufxzoz for patient dcdh62769-1FsbzOOJHVWZUAP42 [address]vdGalvestonGalvestonTXTX775[address] 1KCRUWUXZCKZDCKWLNVDTLN4545-70-18B1 0:28:061.2.840.468861.1.72.3.15|1.2 .840.756513.1.13.104.2.7.2.727879_1 [id number] [facility] 2023-06-16 10:14:22 Katlyn/zTv3Ov2BmVDB120YJew3bMz9pSU3 EnfF2cq6HOvIquirz8rOOzR6ZXnTS3559-4 06-16T10:14:22 Please review and advise. 64656-6Amjgepktf encounter RxkzOI6507-38-58C52:14:32Telephone encounter NoteTXT1.2.840.418158.1.13.104.2.7. 2.054443|9867484940MWKygoenvgv for patient ydfz59072-0KnueJI401061528Shsmbs [place] [address] SuntOjoswfyysFyvnbhsntXPSI169715197 2ZEPZCRLSLSKJCBFSBMJSMZ2796-42-90T9 0:14:321.2.840.174089.1.72.3.15|1.2 .840.615455.1.13.104.2.7.2.727879_1 [id number] [facility] 2023-06-16 09:55:28 VwE0oUMLm+L6UrUW6ZuT9KB2rBv4c7ZCmCS vwczbzGtej7Aesr5zXV917Os028B87564-9 06-16T09:55:28 Pt is wanting to discuss home health says she can barely stand to wash her own dishes, say she discussed this previously.Call pt on temp #[id number] signed by Lulu Canas at 06/16/2023 9:57 AM FAC22820-6Bxegqmici encounter LkjkBR9720-77-26R52:57:27Telephone encounter NoteTXT1.2.840.881811.1.13.104.2.7. 2.559767|2775717257VRTcsriishz for patient iizj73471-6EjbfZA252384843Tvqdn [address] SrhqWufwbdfzxHqaiyhlqmTOPC994619432 4YJOVGAODMFUJXQSYAIAOJK3268-31-10W1 9:57:271.2.840.866611.1.72.3.15|1.2 .840.078584.1.13.104.2.7.2.727879_1 [id number] Lulu Canas [facility] 2023-06-10 16:49:35 PRAG/p+4Hj9g6yX7q36wS5zuZLm4VSugbOT e846RoV9Msuu11LTD4staf4yW+/Xb5945-1 6:49:35 Received PA from eugeneMOJICA:BFUJYDWNElectronical ly signed by Valentina Nguyen at 06/10/2023 4:52 PM WPM86463-2Zsuizlkhv encounter VgwzSZ9780-50-34I69:52:39Telephone encounter NoteTXT1.2.840.137289.1.13.104.2.7. 2.737513|3191119102ZQAcmigendl for patient skdc932325848Gugiafqln [address] HossQmcdfpvqwOepiligmbTSAR859844616 7GUKFXGSNBYKBZPFVKMHPGU0828-19-12E4 6:52:391.2.840.676327.1.72.3.15|1.2 .840.932495.1.13.104.2.7.2.727879_1 [id number] Valentina Nguyen [facility] 2021-08-10 12:04:00 43kgOwxdR6qJfceIJI8/RhbA+//MdL5U6eB TZMfpn1inueyeIGZVGP+lHjgwZ44R0954-5 08-10T12:04:00 [facility] [address] [place] [address] Emergency Department Document Signed Patient: Masha Kilgore Medical Record#: [id number] : 1960 Acct:[id number] Age/Sex: 60 / F Admit/Reg Date: 08/10/21 Loc: [facility] Room: Report Number: [id number] Attending Dr: Christy Partida DO Arrival - [...] (Auto) 76.8 H, Lymph % (Auto) 16.9, Harvey % (Auto) 5.5, Eos % (Auto) 0.1, Baso % (Auto) 0.3, Neut # (Auto) 7.3, Lymph # (Auto) 1.60, Harvey # (Auto) 0.52, Eos # (Auto) 0.01, [...] MD [Primary Care Provider] - ([facility] [address] [place], [place], [facility] [address] [id number] Telephone #[phone] [place] [address] ) Print Language: South African Dictated By: Christy Partida DO Signed By: Christy Partida DO 08/10/21 1351 DD/ 1204 TD/TT: 08/10/21 1204 Balance And Hairspring Assembler: NUVIA cc: KAREN* Pcp-Md MD JOSE F [facility] Physician YvmsbzwvhosmqWHPNA92Yoirqjw, RtevZafivbpAoymK0721-47-38Y05:04:00 Zakilaprachi for patient owneRLYVWSsCZHMl8361-66-99Y75:51:47 [facility]
[2024-02-29 07:57] LABS: Absolute Basophils 0.1 K/uL (0-0.5); Hemoglobin 14.6 g/dL (12.0-15.0); MPV 6.8 fL (7.6-11.3); Monocytes % 0.3 % (3.3-12.3)
[2024-02-29] MEDS ORDERED: AMLODIPINE 10 MG TAB ONE (07:57)
[2024-02-29] MEDS ORDERED: KETOROLAC 30 MG/ML INJ ONE (07:57)
[2024-02-29] MEDS ORDERED: METOCLOPRAMIDE 10 MG/2mL INJ ONE (07:58)
[2024-02-29] MEDS ORDERED: LOSARTAN POTASSIUM 50 MG TABLET ONE (07:58)
[2024-02-29] MEDS ORDERED: DIPHENHYDRAMINE 50 MG/ML VIAL ONE (07:58)
[2024-02-29 07:59] LABS: PT Prothrombin Time 12.5 SECONDS (9.5-12.5); Protime INR 1.14
[2024-02-29] MEDS ORDERED: NA CHLORIDE 0.9% 500 ML ONE (07:59)
[2024-02-29 08:03] LABS: Absolute Lymphocytes (CBC) 1.3 K/uL (0.7-4.9); Absolute Neutrophil 7.5 K/uL (1.8-8.0); Basophils % 1.2 % (0-1.3); Hematocrit 42.5 % (36.0-45.0); MCH 30.6 pg (27.0-35.0); MCHC 34.4 g/dL (32.0-36.0); Neutrophils % 83.5 % (41.7-73.7); Nucleated Red Blood Cells % 0.1 % (0-0); Platelets 283 thou/uL (152-406); RBC Red Blood Cell Count 4.78 M/uL (3.86-4.86); Red Cell Distribution Width 12.9 % (12.1-15.2)
--- NOTE | 2024-02-29 08:06 | RAD REPORT ---
EXAM DESCRIPTION: RAD - Chest Single View - 02/29/2024 7:47 am CLINICAL HISTORY: CHEST PAIN COMPARISON: Chest Single View dated 01/09/2021; Chest Single View dated 12/18/2020; Chest Single View dated 11/21/2020; Chest Single View dated 08/20/2018 FINDINGS: Lines: None. Lungs: No evidence of edema or pneumonia. Pleural: No significant pleural effusions or pneumothorax. Cardiac: The heart size is within normal limits. Mediastinum: Within normal limits. Bones: No acute fractures. Other: None IMPRESSION: No acute cardiopulmonary disease.
[2024-02-29 08:12] LABS: Albumin 3.7 g/dL (3.4-5.0); Albumin/Globulin Ratio 0.9 (1.1-1.8); Anion Gap 8.5 mEq/L (5.0-15.0); Bilirubin Direct 0.1 mg/dL (0-0.2); Bilirubin Indirect, Calculated 0.2 mg/dL (0.2-0.8); Bilirubin Total 0.3 mg/dL (0.2-1.0); Globulin 4.2 g/dL (2.3-3.5); Magnesium 1.9 mg/dL (1.6-2.4); Potassium 3.5 mEq/L (3.5-5.1); Protein, Total 7.9 g/dL (6.4-8.2)
--- NOTE | 2024-02-29 08:22 | RAD REPORT ---
EXAM DESCRIPTION: CT - Head Brain Wo Cont - 02/29/2024 8:03 am CLINICAL HISTORY: HEADACHE COMPARISON: Head Brain Wo Cont dated 09/01/2020; Head Brain Wo Cont dated 08/20/2018 TECHNIQUE: All CT scans are performed using dose optimization technique as appropriate and may inclu de automated exposure control or mA/KV adjustment according to patient size. FINDINGS: No intracranial hemorrhage, hydrocephalus or extra-axial fluid collection.No areas of brai n edema or evidence of midline shift. Tiny focus of hypoattenuation in the left thalamus is unchanged may represent a remote thalamic lacunar infarct. Mild chronic small vessel ischemic changes. Trace right maxillary sinus thickening. The calvarium is intact. IMPRESSION: No acute intracranial abnormality.
--- NOTE | 2024-02-29 08:38 | ER ---
Nurse's Notes [facility] Name: Afua Cunningham Age: 63 yrs Sex: Female : 1960 Arrival Date: 02/29/2024 Time: 06:58 Bed 8 Private MD: Diagnosis: Essential (primary) hypertension;Headache Presentation: 02/28 07:06 Chief complaint: Patient states: ASHRAF that began at 0300 today. Pt reports she took two ss Tylenol PM and two Benadryl tablets this morning with no relief. BP en route to ED was 182/107/ Pt reports she takes Losartan 100 mg PO DAILY, but has been out for a week. Next follow up appointment is on March 14. Coronavirus screen: Client denies travel out of the [place] in the last 14 days. Ebola Screen: Patient denies exposure to infectious person. Patient denies travel to an Ebola-affected area in the 21 days before illness onset. Initial Sepsis Screen: Does the patient meet any 2 criteria? No. Patient's initial sepsis screen is negative. Does the patient have a suspected source of infection? No. Patient's initial sepsis screen is negative. Risk Assessment: Do you want to hurt yourself or someone else? Patient reports no desire to harm self or others. Onset of symptoms was February 29, 2024. 07:06 Method Of Arrival: EMS: [facility] 07:06 Acuity: ASHA 2 ss Historical: - Allergies: 07:08 No Known Allergies; ss - Home Meds: 07:08 losartan 100 mg Oral tab 1 tab once daily [Active]; ss - PMHx: 07:08 Anxiety; Asthma; Back pain; Depression; fx in middle of back; GERD; Hypertension; UTI; ss - Immunization history:: Client reports having NOT received the Covid vaccine. - Infectious Disease History:: Denies. - Social history:: Smoking status: Patient reports the use of cigarette tobacco products, smokes one pack cigarettes per day. Screenin:03 [facility] ED Fall Risk Assessment (Adult) History of falling in the last 3 months, ss including since admission No falls in past 3 months (0 pts). Abuse screen: Denies threats or abuse. Denies injuries from another. Nutritional screening: No deficits noted. Tuberculosis screening: Never had TB. Assessment: 08:55 Reassessment: Patient appears in no apparent distress at this time. Patient and/or iw family updated on plan of care and expected duration. Pain level reassessed. Vital Signs: 07:06 BP 187 / 126; Pulse 96; Resp 16; Temp 99.5(O); Pulse Ox 98% on R/A; Weight 79.38 kg; ss Height 5 ft. 1 in. ; Pain 10/10; 08:13 BP 196 / 117; Pulse 90; Resp 16; Pulse Ox 98% on R/A; Pain 10/10; ss 08:54 BP 174 / 111; Pulse 89; Resp 16; Pulse Ox 97% on R/A; iw 09:03 BP 161 / 101; Pulse 89; Resp 16; Pulse Ox 98% on R/A; Pain 8/10; ss 07:06 Body Mass Index 33.07 (79.38 kg, 154.94 cm) ss 07:06 Pain Scale: Adult ss 08:13 Pain Scale: Adult ss 09:03 Pain Scale: Adult ss Farrah Coma Score: 08:35 Eye Response: spontaneous(4). Motor Response: obeys commands(6). Verbal Response: mar oriented(5). Total: 15. ED Course: 06:59 Patient arrived in ED. [id number] 07:05 Shayne Hobbs MD is Attending Physician. mar 07:05 Henna Moore, RN is Primary Nurse. ss 07:08 Triage completed. ss 07:08 Arm band placed on left wrist. ss 07:08 Patient has correct armband on for positive identification. Placed in gown. Bed in low ty position. Call light in reach. Side rails up X2. Warm blanket given. 07:45 Initial lab(s) drawn, by me, sent to lab. Inserted saline lock: 22 gauge in right ty forearm, using aseptic technique. Blood collected. 07:49 XRAY Chest (1 view) In Process Unspecified. EDMS 08:04 CT Head Brain wo Cont In Process Unspecified. EDMS 09:03 No provider procedures requiring assistance completed. ss 09:12 IV discontinued, intact, bleeding controlled, No redness/swelling at site. Pressure ss dressing applied. Administered Medications: 08:13 Drug: Losartan PO 100 mg PO once Route: PO; ss 09:14 Follow up: Response: No adverse reaction ss 08:13 Drug: Norvasc PO 10 mg PO once Route: PO; ss 09:14 Follow up: Response: No adverse reaction; Blood pressure is lowered ss 08:13 Drug: diphenhydrAMINE IVP 50 mg IVP once Route: IVP; Site: right forearm; ss 09:14 Follow up: Response: No adverse reaction ss 08:14 Drug: NS 0.9% IV 500 ml IV at bolus once Route: IV; Rate: bolus; Site: right forearm; ss 09:14 Follow up: IV Status: Completed infusion; IV Intake: 500ml ss 08:14 Drug: Ketorolac IVP 15 mg IVP once Route: IVP; Site: right forearm; ss 09:13 Follow up: Response: No adverse reaction; Pain is decreased ss 08:14 Drug: metoCLOPramide IVP 10 mg IVP once; over 1 to 2 minutes Route: IVP; Site: right ss forearm; 09:13 Follow up: Response: No adverse reaction ss 08:48 Drug: [place] PO 10 mg-325 mg 1 tabs PO once Route: PO; iw 09:13 Follow up: Response: No adverse reaction; Pain is decreased; RASS: Alert and Calm (0) ss 08:48 Drug: Hydrochlorothiazide PO 12.5 mg PO once Route: PO; iw 09:13 Follow up: Response: No adverse reaction ss Medication: 09:03 VIS not applicable for this client. ss Intake: 09:14 IV: 500ml; Total: 500ml. ss Outcome: 08:37 Discharge ordered by . mar 09:12 Discharged to home ambulatory, 09:12 Condition: improved 09:12 Discharge instructions given to patient, Instructed on discharge instructions, follow up and referral plans. medication usage, Demonstrated understanding of instructions, follow-up care, medications, Prescriptions given X 3, 09:15 Patient left the ED. ss Signatures: Dispatcher [employer] EDShayne Ambrosio MD MD cha Williams, Irene, RN RN Henna Moore RN RN Martha Martínez RN RN Car Chung
--- NOTE | 2024-02-29 08:38 | EDPHYS ---
Physician Documentation [facility] Name: Afua Cunningham Age: 63 yrs Sex: Female : 1960 Arrival Date: 02/29/2024 Time: 06:58 Bed 8 Private MD: ESTEBAN Physician Shayne Hobbs HPI: 02/28 08:33 This 63 yrs old Black Female presents to ER via EMS with complaints of Headache. [facility] 08:33 The patient complains of pain to the top of head, forehead, left frontal area and right mar frontal area. The patient describes the headache as aching, constant. Onset: The symptoms/episode began/occurred this morning. Associated signs and symptoms: Pertinent positives: This patient does not have any pertinent positive signs or symptoms associated with a headache. Severity of symptoms: At its worst the pain was mild, moderate, in the emergency department the pain is unchanged. Headache History: The patient has had previous headaches and this one is similar to previous episodes. The patient has experienced similar episodes in the past, multiple times. Historical: - Allergies: 07:08 No Known Allergies; ss - Home Meds: 07:08 losartan 100 mg Oral tab 1 tab once daily [Active]; ss - PMHx: 07:08 Anxiety; Asthma; Back pain; Depression; fx in middle of back; GERD; Hypertension; UTI; ss - Immunization history:: Client reports having NOT received the Covid vaccine. - Infectious Disease History:: Denies. - Social history:: Smoking status: Patient reports the use of cigarette tobacco products, smokes one pack cigarettes per day. ROS: 08:34 Constitutional: Negative for fever, chills, and weight loss, Eyes: Negative for injury, mar pain, redness, and discharge, ENT: Negative for injury, pain, and discharge, Neck: Negative for injury, pain, and swelling, Cardiovascular: Negative for chest pain, palpitations, and edema, Respiratory: Negative for shortness of breath, cough, wheezing, and pleuritic chest pain, Abdomen/GI: Negative for abdominal pain, nausea, vomiting, diarrhea, and constipation, Back: Negative for injury and pain, : Negative for injury, bleeding, discharge, and swelling, MS/Extremity: Negative for injury and deformity, Skin: Negative for injury, rash, and discoloration, Psych: Negative for depression, anxiety, suicide ideation, homicidal ideation, and hallucinations, Allergy/Immunology: Negative for hives, rash, and allergies, Endocrine: Negative for neck swelling, polydipsia, polyuria, polyphagia, and marked weight changes, Hematologic/Lymphatic: Negative for swollen nodes, abnormal bleeding, and unusual bruising, 08:34 Neuro: Positive for headache, weakness, Exam: 08:34 Constitutional: This is a well developed, well nourished patient who is awake, alert, mar and in no acute distress. Head/Face: Normocephalic, atraumatic. Eyes: Pupils equal round and reactive to light, extra-ocular motions intact. Lids and lashes normal. Conjunctiva and sclera are non-icteric and not injected. Cornea within normal limits. Periorbital areas with no swelling, redness, or edema. ENT: Nares patent. No nasal discharge, no septal abnormalities noted. Tympanic membranes are normal and external auditory canals are clear. Oropharynx with no redness, swelling, or masses, exudates, or evidence of obstruction, uvula midline. Mucous membranes moist. Neck: Trachea midline, no thyromegaly or masses palpated, and no cervical lymphadenopathy. Supple, full range of motion without nuchal rigidity, or vertebral point tenderness. No Meningismus. Chest/axilla: Normal chest wall appearance and motion. Nontender with no deformity. No lesions are appreciated. Cardiovascular: Regular rate and rhythm with a normal S1 and S2. No gallops, murmurs, or rubs. Normal PMI, no JVD. No pulse deficits. Respiratory: Lungs have equal breath sounds bilaterally, clear to auscultation and percussion. No rales, rhonchi or wheezes noted. No increased work of breathing, no retractions or nasal flaring. Abdomen/GI: Soft, non-tender, with normal bowel sounds. No distension or tympany. No guarding or rebound. No evidence of tenderness throughout. Back: No spinal tenderness. No costovertebral tenderness. Full range of motion. Female : Normal external genitalia. Skin: Warm, dry with normal turgor. Normal color with no rashes, no lesions, and no evidence of cellulitis. Neuro: Awake and alert, GCS 15, oriented to person, place, time, and situation. Cranial nerves II-XII grossly intact. Motor strength 5/5 in all extremities. Sensory grossly intact. Cerebellar exam normal. Normal gait. Psych: Awake, alert, with orientation to person, place and time. Behavior, mood, and affect are within normal limits. 08:34 Musculoskeletal/extremity: ROM: no acute changes, Circulation is intact in all extremities. Sensation intact. Compartment Syndrome exam of affected extremity: is normal. Joints: the left hip, left knee, right hip and right knee displays limited range of motion, Weight bearing: able to fully bear weight, without difficulty, DVT Exam: no pain, no swelling, no tenderness, negative Homans' sign noted on exam, no appreciated bluish discoloration, no erythema, no increased warmth, Vital Signs: 07:06 BP 187 / 126; Pulse 96; Resp 16; Temp 99.5(O); Pulse Ox 98% on R/A; Weight 79.38 kg; ss Height 5 ft. 1 in. ; Pain 10/10; 08:13 BP 196 / 117; Pulse 90; Resp 16; Pulse Ox 98% on R/A; Pain 10/10; ss 08:54 BP 174 / 111; Pulse 89; Resp 16; Pulse Ox 97% on R/A; iw 09:03 BP 161 / 101; Pulse 89; Resp 16; Pulse Ox 98% on R/A; Pain 8/10; ss 07:06 Body Mass Index 33.07 (79.38 kg, 154.94 cm) ss 07:06 Pain Scale: Adult ss 08:13 Pain Scale: Adult ss 09:03 Pain Scale: Adult ss [place] Coma Score: 08:35 Eye Response: spontaneous(4). Motor Response: obeys commands(6). Verbal Response: mar oriented(5). Total: 15. MDM: 07:06 Patient medically screened. mar 08:35 Differential diagnosis: hypertensive headache, hypoglycemia, hyponatremia, migraine, mar temporal arteritis, tension headache. Differential Diagnosis altered mental status. Data reviewed: vital signs, nurses notes, lab test result(s), EKG, radiologic studies. Consideration of Admission/Observation Escalation of care including admission/observation considered. I considered the following discharge prescriptions or medication management in the emergency department Medications were administered in the Emergency Department. See MAR. Independent interpretation of the following test(s) in the Emergency Department EKG: See my EKG interpretation above. Test considered but Not performed: MRI: NO MRI BRAIN. 02/28 07:13 Order name: Basic Metabolic Panel; Complete Time: 08:29 mar 02/28 07:13 Order name: CBC with Diff 02/28 07:13 Order name: LFT's; Complete Time: 08:29 mar 02/28 07:13 Order name: Magnesium; Complete Time: 08:29 [facility] 02/28 07:13 Order name: NT PRO-BNP; Complete Time: 08:29 [facility] 02/28 07:13 Order name: PT-INR; Complete Time: 08:29 [facility] 02/28 07:13 Order name: Troponin HS; Complete Time: 08:29 [facility] 02/28 08:07 Order name: Manual Differential EDMS 02/28 07:13 Order name: XRAY Chest (1 view); Complete Time: 08:29 [facility] 02/28 07:13 Order name: CT Head Brain wo Cont; Complete Time: 08:29 [facility] 02/28 07:13 Order name: Cardiac monitoring; Complete Time: 07:54 [facility] 02/28 07:13 Order name: EKG - Nurse/Tech; Complete Time: 07:54 [facility] 02/28 07:13 Order name: IV Saline Lock; Complete Time: 07:54 [facility] 02/28 07:13 Order name: Labs collected and sent; Complete Time: 07:54 [facility] 02/28 07:13 Order name: O2 Per Protocol; Complete Time: 07:14 [facility] 02/28 07:13 Order name: O2 Sat Monitoring; Complete Time: 07:14 mar Administered Medications: 08:13 Drug: Losartan PO 100 mg PO once Route: PO; ss 09:14 Follow up: Response: No adverse reaction ss 08:13 Drug: Norvasc PO 10 mg PO once Route: PO; ss 09:14 Follow up: Response: No adverse reaction; Blood pressure is lowered ss 08:13 Drug: diphenhydrAMINE IVP 50 mg IVP once Route: IVP; Site: right forearm; ss 09:14 Follow up: Response: No adverse reaction ss 08:14 Drug: NS 0.9% IV 500 ml IV at bolus once Route: IV; Rate: bolus; Site: right forearm; ss 09:14 Follow up: IV Status: Completed infusion; IV Intake: 500ml ss 08:14 Drug: Ketorolac IVP 15 mg IVP once Route: IVP; Site: right forearm; ss 09:13 Follow up: Response: No adverse reaction; Pain is decreased ss 08:14 Drug: metoCLOPramide IVP 10 mg IVP once; over 1 to 2 minutes Route: IVP; Site: right ss forearm; 09:13 Follow up: Response: No adverse reaction ss 08:48 Drug: [place] PO 10 mg-325 mg 1 tabs PO once Route: PO; iw 09:13 Follow up: Response: No adverse reaction; Pain is decreased; RASS: Alert and Calm (0) ss 08:48 Drug: Hydrochlorothiazide PO 12.5 mg PO once Route: PO; iw 09:13 Follow up: Response: No adverse reaction ss Disposition Summary: 02/29/24 08:37 Discharge Ordered Notes: Location: Home mar Problem: new mar Symptoms: have improved mar Condition: Stable mar Diagnosis - Essential (primary) hypertension mar - Headache mar Followup: mar - With: Private Physician - When: 2 - 3 days - Reason: Recheck today's complaints, Continuance of care, Re-evaluation by your physician Discharge Instructions: - Discharge Summary Sheet mar - Potassium Content of Foods mar - Hypertension, Adult mar - Hypertension, Adult, [id number] mar - How to Take Your Blood Pressure, [id number] mar - Aspirin and Your Heart mar - Managing Your Hypertension [facility] Forms: - Medication Reconciliation Form mar - Thank You Letter mar - Antibiotic Education mar - Prescription Opioid Use mar - Patient Portal Instructions mar - Leadership Thank You Letter [facility] Prescriptions: - losartan 100 mg Oral tablet - take 1 tablet ORAL route once; 30 tablet; Refills: 0, Product Selection mar Permitted - Norvasc 10 mg Oral Tablet - take 1 tablet ORAL route once daily; 30 tablet; Refills: 0, Product Selection mar Permitted - Hydrochlorothiazide 12.5 mg Oral Tablet - take 1 tablet ORAL route once daily; 30 tablet; Refills: 0, Product Selection mar Permitted Signatures: Dispatcher [employer] EDShayne Ambrosio MD MD cha Williams, Irene RN RN iw Henna Moore RN RN ss Corrections: (The following items were deleted from the chart) 07:13 07:13 BASIC METABOLIC PANEL+C.LAB.BRZ ordered. EDMS EDMS 07:13 07:13 CBC+H.LAB.BRZ ordered. EDMS EDMS 07:13 07:13 HEPATIC FUNCTION+C.LAB.BRZ ordered. EDMS EDMS 07:13 07:13 MAGNESIUM+C.LAB.BRZ ordered. EDMS EDMS 07: 07:13 PROBNP+C.LAB.BRZ ordered. EDMS EDMS : 07:13 PROTIME (+INR)+COAG.LAB.BRZ ordered. EDMS EDMS 07: 07:13 Troponin High Sensitivity+C.LAB.BRZ ordered. EDMS EDMS 07: 07:13 Chest Single View+RAD.RAD.BRZ ordered. EDMS EDMS : 07:13 Head Brain Wo Cont+CT.RAD.BRZ ordered. EDMS EDMS
[2024-02-29] MEDS ORDERED: hydroCHLOROthiazide 25 MG TAB ONE (08:45)
[2024-02-29] MEDS ORDERED: HYDROCODONE/APAP 10/325 TAB ONE (08:45)
[2024-02-29 09:45] LABS: Blood Morphology Comment NOT SEEN (NOT SEEN); Differential Total Cells Count 100; Lymphocytes 14 % (15-42); Monocytes 3 % (0-10); Platelet Estimate ADEQ; Segmented Neutrophils 82 % (40-80)
[2024-02-29 09:46] LABS: Atypical Lymphocytes 1 %
[2024-02-29 13:17] VITALS: BP 161/101; TEMP 99.5; O2SAT 98
--- NOTE | 2024-03-01 12:44 | EKG ---
Test Date: 2024-02-29 Test Time: 07:51:10 Paper Bag Inspector: CARTER MEASUREMENT RESULTS: Intervals: Rate: 89 OK: 170 QRSD: 98 QT: 368 QTc: 447 [place]: P: 58 OK: 170 QRS: -11 T: 61 INTERPRETIVE STATEMENTS: Normal sinus rhythm Septal infarct, age undetermined Abnormal ECG Compared to ECG 01/09/2021 00:19:59 Left ventricular hypertrophy no longer present Myocardial infarct finding still present Electronically Signed On 03-01-24 12:41:02 CDT by Mark Richey
== END 2024-02-29 09:15 | disposition home or self-care (01) ==
LOC: ER 06:58
DX: R51.9 Headache, unspecified (principal); I10 Essential (primary) hypertension; F17.210 Nicotine dependence, cigarettes, uncomplicated
CPT/HCPCS: 96361; 93005; 85025; 80048; 36415; 83735; 85610; 80076; 84484; 83880; 70450; 71045; 96375; 96374; 99284; J2765; J1200; J7040

== ENCOUNTER 2024-03-13 00:50 | Emergency (ER) | payer OTHER ==
--- OUTSIDE RECORDS SUMMARY | 2024-03-13 00:55 | XMS REPORT | Continuity of Care Document ---
Author Name Unknown Address [address] [facility] [address] [place] [address] [facility] thconnect Address [address] [facility] [address] [place] [address] Care Team Providers Care Emergency Management Coordinator Name Role Phone Pcp-None Primary Care Physician Unavailab MACKENZIE Hooper Attending Clinician Unavailable ELLIE DELUCA Attending Clinician Unavailable NGHIA MENENDEZ Attending Clinician Unavailable Nghia Menendez MD Attending Clinician [phone] Doctor Unassigned, Johnson Attending Clinician U navailable CHAY WEEKS Attending Clinician Unavailable Chay Barron Attending Clinician [phone] MIRIAM VERGARA Attending Clinician Unavailable ALTON REYES Attending Clinician Unavailable ALTON REYES Attending Clinician Unavailable Tang WHITE, Mackenzie Attending Clinician [phone] YARI HORNE Attending Clinician Unavaila Alton Henderson DO Attending Clinician [phone] JULI TURNER Attending Clinician UnaRAY Dorsey Attending Clinician Unavailable Ellie Deluca MD L Attending Clinician [phone] MAMIE BARBOZA Attending Clinician Unavailable Green Kiera MCDOWELL Attending Clinician [phone], [facility] Attending Clinician Unavailable Quentin [facility] Attending Clinician [phone] Prosper Graff Attending Clinician [phone] Unknown, Attending Attending Clinician Unavailab PROSPER Lynn Attending Clinician Unavailable DERECK JOHNSON Attending Clinician Unavailable DERECK JOHNSON Attending Clinician Unavailable SONIA PICKARD Attending Clinician Unavaila Sonia Kent Attending Clinician + [phone] Mamie Cabrales Attending Clinician [phone] CHONG BAILEY Attending Clinician UnavailChong Spicer MD Attending Clinician [phone] SANDRA ANDRADE Attending Clinician Unavaila Sandra Perez Attending Clinician [phone] Lab, Ang - Db Attending Clinician Unavailable MEAGHAN JACOBO Attending Clinician Unavailable DEIDRA MEEK Attending Clinician Unavailable Deidra Meek NP Attending Clinician [phone] RUTHIE HANEY Attending Clinician Unavailable Layne Weir MD Attending Clinician [phone] LAYNE WEIR Attending Clinician Unavailable Ruthie Davis Attending Clinician [phone] ISABELLE PRECIADO Attending Clinician Unavailable Isabelle Husain Attending Clinician [phone] [facility] Attending Clinician Unavail able Mikael Shafer MD Attending Clinician [phone] GURU MEZA Attending Clinician Unavailable Guru Meza DO Attending Clinician + ROSY FLOWERSHAllison Attending Clinician Unavaila angel Pob, [facility] Main Attending Clinician UnavailREKHA Sanford Attending Clinician Unavailable Isac LEISURE TRAVEL AGENT, Rekha Attending Clinician [phone] Provider, [facility] Attending Clinician Unavailable Neli Baron MD Attending Clinician [phone] Tor WHITE, Rosy Hameed Attending Clinician + [phone] LINDA DEGROOT Attending Clinician Unavailab rosana Bailey LEISURE TRAVEL AGENT, Timothy Attending Clinician [phone] TIMOTHY BAILEY Attending Clinician Unavailable Linda Degroot DO Attending Clinician +[phone] Christy Partida Attending Clinician Unavailable Wes MCDOWELL, Meghan Attending Clinician + [phone] Regis Cortez MD Attending Clinician [phone] REGIS CORTEZ Attending Clinician Unavailable Janet Tavera Attending Clinician [phone] Janet LOVE Attending Clinician Unavailable Brary Manuel Attending Clinician +[phone] BARRY GOMEZ Attending Clinician Unavailable Brian Gray MD Attending Clinician + BRIAN GRAY Attending Clinician Unavailable MEGHAN HARVEY Attending Clinician Unavailable Ary FIGUEROA, Johnna Tenorio Attending Clinician Unavailab rosana MCDOWELL, Jacqueline Attending Clinician + Bruce Loco Attending Clinician + Jeannie Lopez RN Attending Clinician + [phone] Kali Caban MD Attending Clinician [phone] Roman Perez Attending Clinician +[phone] SANDRA ANDRADE Admitting Clinician Unavaila DEIDRA Calvin Admitting Clinician Unavailable LAYNE WEIR Admitting Clinician Unavailable GURU MEZA Admitting Clinician Unavailable CHONG BAILEY Admitting Clinician UnavailMAMIE Patel Admitting Clinician Unavailable REKHA CHAU Admitting Clinician Unavailable CHAY WEEKS Admitting Clinician Unavailable MEGHAN HARVEY Admitting Clinician Unavailable Mee WHITE, Kali Melo Admitting Clinician [phone] Payers Payer Name Policy Type Policy Number Effective Date Expirati on Date Source [employer] MEDICARE ADVANTAGE [id number] 2012 00:00:00 [facility] MEDICAID [id number] 2016 00:00:00 [facility] [id number] 2023 00:00:00 2023 00:00:00 Problems Condition Name Condition Details Condition Category Status Onset Date Resolution Date Last Treatment Date Treating Clinician Comments Source Depression , unspecifie d depression type Depression , unspecifie d depression type Disease Active 08-06 00:00: 00 [facility] Chronic bilateral low back pain without sciatica Chronic bilateral low back pain without sciatica Disease Active 2021-11 00:00: 00 [facility] Cardiac murmur Cardiac murmur Disease Active 2020-11 00:00: 00 [facility] Anemia, unspecifie d type Anemia, unspecifie d type Disease Active 2020-11 00:00: 00 [facility] Chronic GERD Chronic GERD Disease Active 2020-11 00:00: 00 [facility] Moderate persistent asthma without complicati on Moderate persistent asthma without complicati on Disease Active 2020-11 00:00: 00 [facility] Hypertensi on, essential Hypertensi on, essential Disease Active 2020-11 00:00: 00 [facility] Drug-seeki ng behavior Drug-seeki ng behavior Disease Active 2020-11 00:00: 00 [facility] Altered mental status Altered mental status Disease Active 07-17 00:00: 00 [facility] Obesity (BMI 30-39.9) Obesity (BMI 30-39.9) Disease Active 05-31 00:00: 00 [facility] Hypertensi ve urgency Hypertensi ve urgency Disease Active 05-31 00:00: 00 [facility] Allergies, Adverse Reactions, Alerts Allergy Name Allergy Type Status Severity Reaction(s) Onset Date Inactive Date Treating Clinician Comments Source Unable to Assess DA Active U 08-10 00:00: 00 [facility] No Known Drug Allergie s DA Active U 08-10 00:00: 00 [facility] NO KNOWN ALLERGIE S Drug Class Active [facility] Social History Social Habit Start Date Stop Date Quantity Comments Source History SDOH Alcohol Binge [facility] History SDOH Alcohol Comment [employer] [facility] History of tobacco use Cigarette Smoker [facility] Gender [facility] Sexual [facility] Alcohol intake 2024-01-14 00:00:00 2024-01-14 00:00:00 Ex-drinker (finding) [facility] History of Social function 2024-01-14 00:00:00 2024-01-14 00:00:00 [facility] Exposure to SARS-CoV-2 (event) 2023-04-07 00:00:00 2023-04-17 09:48:00 Not sure [facility] Cigarettes smoked current (pack per day) - Reported 2022-07-03 00:00:00 2022-07-03 00:00:00 [facility] Cigarette pack-years 2022-07-03 00:00:00 2022-07-03 00:00:00 [facility] Tobacco use and exposure 2022-07-03 00:00:00 2022-07-03 00:00:00 Smokeless tobacco non-user [facility] History SDOH Alcohol Frequency 2019-07-17 00:00:00 2019-07-17 00:00:00 5 [facility] History SDOH Alcohol Std Drinks 2019-07-17 00:00:00 2019-07-17 00:00:00 3 [facility] Education - What is the highest level of school you have completed or the highest degree you have received? 2019-05-31 00:00:00 2019-05-31 00:00:00 7th grade [facility] History SDOH Financial 2019-05-31 00:00:00 2019-05-31 00:00:00 1 [facility] History SDOH Transport Med 2019-05-31 00:00:00 2019-05-31 00:00:00 1 [facility] History SDOH Transport Non-Med 2019-05-31 00:00:00 2019-05-31 00:00:00 1 [facility] Sex Assigned At 1960 00:00:00 1960 00:00:00 [facility] Smoking Status Start Date Stop Date Source Smokes tobacco daily 2022-07-03 00:00:00 [facility] Medications Ordered Medication Name Filled Medication Name Start Date Stop Date Current Medication? Ordering Clinician Indication Dosage Frequency Signature (SIG) Comments Components Source HYDROcodone -acetaminop hen 10-325 mg tablet 02-10 00:00: 00 Yes [id number] 1{tbl} Take 1 tablet by mouth every 6 (six) hours as needed for Pain (scale 4-6). Indication s: chronic pain [facility] venlafaxine 75 mg tablet 01-14 00:00: 00 Yes [id number] 75mg Take 1 tablet by mouth in the morning and 1 tablet in the evening. [facility] pantoprazol e 20 mg EC tablet 01-14 00:00: 00 Yes [id number] 20mg Take 1 tablet by mouth in the morning. [facility] traZODone 50 mg tablet 01-14 00:00: 00 Yes [id number] 25mg Take 0.5 tablets by mouth at bedtime. [facility] HYDROcodone -acetaminop hen 10-325 mg tablet 01-14 00:00: 00 02-10 00:00 :00 No [id number] 1{tbl} Take 1 tablet by mouth every 6 (six) hours as needed for Pain (scale 4-6). Indication s: chronic pain [facility] lactulose 10 gram/15 mL solution 12-15 00:00: 00 Yes [id number] TAKE 15 ML BY MOUTH EVERY DAY NEEDED FOR CONSTIPATI ON [facility] HYDROcodone -acetaminop hen 10-325 mg tablet 12-15 00:00: 00 01-14 00:00 :00 No [id number] 1{tbl} Take 1 tablet by mouth every 6 (six) hours as needed for Pain (scale 4-6). Indication s: chronic pain [facility] atorvastati n 20 mg tablet 2022-11 00:00: 00 Yes [id number] 20mg Take 1 tablet by mouth in the morning. [facility] amLODIPine (NORVASC) 10 mg tablet 2022-11 00:00: 00 Yes [id number] 10mg Take 1 tablet by mouth in the morning. [facility] hydroCHLORO thiazide 25 mg tablet 2022-11 00:00: 00 Yes [id number] 25mg Take 1 tablet by mouth in the morning. [facility] HYDROcodone -acetaminop hen 10-325 mg tablet 2022-11 00:00: 00 12-15 00:00 :00 No [id number] 1{tbl} Take 1 tablet by mouth every 6 (six) hours as needed for Pain (scale 4-6). Indication s: chronic pain [facility] HYDROcodone -acetaminop hen 10-325 mg tablet 2022-11 00:00: 00 11-12 00:00 :00 No [id number] 1{tbl} Take 1 tablet by mouth every 6 (six) hours as needed for Pain (scale 4-6). Indication s: chronic pain [facility] HYDROcodone -acetaminop hen 10-325 mg tablet 2022-11 00:00: 00 10-10 00:00 :00 No [id number] 1{tbl} Take 1 tablet by mouth every 6 (six) hours as needed for Pain (scale 4-6). Indication s: chronic pain [facility] budesonide- formoteroL (SYMBICORT) 160-4.5 mcg/actuati on inhaler 2022-11 00:00: 00 Yes [id number] 2{puff} Inhale 2 Puffs in the morning and 2 Puffs in the evening. [facility] clonazePAM 2 mg tablet 2022-11 00:00: 00 Yes [id number] 2mg Take 1 tablet by mouth every morning and evening. [facility] albuterol 90 mcg/actuati on inhaler 2022-11 00:00: 00 Yes [id number] INHALE 2 PUFFS BY MOUTH EVERY 4 HOURS NEEDED FOR WHEEZING [facility] hydroCHLORO thiazide 25 mg tablet 2022-11 00:00: 00 11-12 00:00 :00 No [id number] 25mg Take 1 tablet by mouth in the morning. [facility] atorvastati n 20 mg tablet 2022-11 00:00: 00 11-12 00:00 :00 No [id number] 20mg Take 1 tablet by mouth in the morning. [facility] amLODIPine (NORVASC) 10 mg tablet 2022-11 00:00: 00 11-12 00:00 :00 No [id number] 10mg Take 1 tablet by mouth in the morning. [facility] LACTULOSE 10 gram/15 mL solution 2022-11 00:00: 00 12-15 00:00 :00 No [id number] TAKE 15 ML BY MOUTH EVERY DAY NEEDED FOR CONSTIPATI ON [facility] HYDROcodone -acetaminop hen 10-325 mg tablet 2022-11 00:00: 00 10-09 00:00 :00 No [id number] 1{tbl} Take 1 tablet by mouth every 6 (six) hours as needed for Pain (scale 4-6). Indication s: chronic pain [facility] hydroCHLORO thiazide 25 mg tablet 2022-11 00:00: 00 10-02 00:00 :00 No [id number] 25mg Take 1 tablet by mouth in the morning. [facility] HYDROcodone -acetaminop hen 10-325 mg tablet 2022-11 00:00: 00 09-10 00:00 :00 No [id number] 1{tbl} Take 1 tablet by mouth every 6 (six) hours as needed for Pain (scale 4-6). Indication s: chronic pain [facility] CLONAZEPAM 2 mg tablet 08-18 00:00: 00 10-02 00:00 :00 No [id number] 2mg TAKE 1 TABLET BY MOUTH IN THE MORNING AND IN THE EVENING [facility] atorvastati n 20 mg tablet 08-11 00:00: 00 10-02 00:00 :00 No [id number] 20mg Take 1 tablet by mouth in the morning. [facility] azithromyci n 250 mg tablet 08-06 00:00: 00 Yes [id number] 250mg Take 1 tablet by mouth in the morning. Take 500 mg day 1, then 250 mg days 2 to 5. [facility] venlafaxine 75 mg tablet 08-06 00:00: 00 01-14 00:00 :00 No [id number] 75mg Take 1 tablet by mouth in the morning and 1 tablet in the evening. [facility] HYDROcodone -acetaminop hen 10-325 mg tablet 08-06 00:00: 00 09-04 00:00 :00 No [id number] 1{tbl} Take 1 tablet by mouth every 6 (six) hours as needed for Pain (scale 4-6). Indication s: chronic pain [facility] HYDROcodone -acetaminop hen 10-325 mg tablet -16 00:00: 00 08-06 00:00 :00 No [id number] 1{tbl} Take 1 tablet by mouth every 6 (six) hours as needed for Pain (scale 4-6). Indication s: chronic pain [facility] SYMBICORT 160-4.5 mcg/actuati on inhaler 8- 00:00: 00 10-02 00:00 :00 No [id number] 2{puff} Inhale 2 Puffs in the morning and 2 Puffs in the evening. [facility] budesonide- formoteroL (SYMBICORT) 160-4.5 mcg/actuati on inhaler 7-28 00:00: 00 06-24 00:00 :00 No [id number] 2{puff} Inhale 2 Puffs in the morning and 2 Puffs in the evening. [facility] losartan 100 mg tablet 06-09 00:00: 00 Yes [id number] 100mg Take 1 tablet by mouth in the morning. [facility] pantoprazol e 20 mg EC tablet 06-09 00:00: 00 01-14 00:00 :00 No [id number] 20mg Take 1 tablet by mouth in the morning. [facility] albuterol 90 mcg/actuati on inhaler 06-09 00:00: 00 10-02 00:00 :00 No [id number] INHALE 2 PUFFS BY MOUTH EVERY 4 HOURS NEEDED FOR WHEEZING [facility] lactulose 10 gram/15 mL solution 06-09 00:00: 00 09-11 00:00 :00 No [id number] TAKE 15 ML BY MOUTH EVERY DAY NEEDED FOR CONSTIPATI ON [facility] hydroCHLORO thiazide 25 mg tablet 06-09 00:00: 00 09-08 00:00 :00 No [id number] 25mg Take 1 tablet by mouth in the morning. [facility] venlafaxine 75 mg tablet 06-09 00:00: 00 08-06 00:00 :00 No [id number] 75mg Take 1 tablet by mouth in the morning and 1 tablet in the evening. [facility] HYDROcodone -acetaminop hen 10-325 mg tablet 06-09 00:00: 00 07-09 00:00 :00 No [id number] 1{tbl} Take 1 tablet by mouth every 6 (six) hours as needed for Pain (scale 4-6). Indication s: chronic pain [facility] CLONAZEPAM 2 mg tablet 05-28 00:00: 00 08-18 00:00 :00 No [id number] NEED ESCRIPT TAKE ONE TABLET BY MOUTH TWICE DAILY @ 9AM & 5PM [facility] triamcinolo ne acetonide (KENALOG) injection 40 mg 05-22 16:15: 05-22 15:05 :00 No [id number] 40mg [facility] fluconazole (DIFLUCAN) 150 mg tablet 04-19 00:00: 00 Yes [id number] Take one tablet; wait 72 hours and take 2nd tablet; wait 72 hours and take 3rd tablet. [facility] cefdinir 300 mg capsule 04-15 00:00: 00 04-26 04:59 :00 No [id number] 600mg Take 2 capsules by mouth in the morning for 10 days. [facility] dexAMETHaso ne (DECADRON) tablet 8 mg 04-10 03:15: 00 04-10 02:36 :00 No 8mg 8 mg, Oral, ONCE NOW, 1 dose, On Fri04/09/23 at 2215, Routine [facility] meloxicam 7.5 mg tablet 04-08 00:00: 00 Yes [id number] 7.5mg Take 1 tablet by mouth in the morning. [facility] HYDROcodone -acetaminop hen 10-325 mg tablet 03-26 00:00: 00 06-09 00:00 :00 No [id number] 1{tbl} Take 1 tablet by mouth every 6 (six) hours as needed for Pain (scale 4-6). Indication s: chronic pain [facility] albuterol 90 mcg/actuati on inhaler 03-26 00:00: 00 06-09 00:00 :00 No [id number] INHALE 2 PUFFS BY MOUTH EVERY 4 HOURS NEEDED FOR WHEEZING [facility] lactulose 10 gram/15 mL solution 03-26 00:00: 00 06-09 00:00 :00 No [id number] TAKE 15 ML BY MOUTH EVERY DAY NEEDED FOR CONSTIPATI ON [facility] sulfamethox azole-trime thoprim (BACTRIM DS) 800-160 mg per tablet 4-12 00:00: 00 Yes [id number] 1{tbl} Take 1 tablet by mouth in the morning and 1 tablet in the evening. [facility] HYDROcodone -acetaminop hen 10-325 mg tablet -12 00:00: 00 03-26 00:00 :00 No [id number] 1{tbl} Take 1 tablet by mouth every 6 (six) hours as needed for Pain (scale 4-6). Indication s: chronic pain [facility] clonazePAM 2 mg tablet 03-04 00:00: 00 05-28 00:00 :00 No [id number] 2mg Take 1 tablet by mouth in the morning and 1 tablet in the evening. [facility] albuterol 90 mcg/actuati on inhaler 03-04 00:00: 00 03-26 00:00 :00 No [id number] INHALE 2 PUFFS BY MOUTH EVERY 4 HOURS NEEDED FOR WHEEZING [facility] triamcinolo ne acetonide (KENALOG) injection 40 mg 02-27 05:00: 00 02-27 16:59 :00 No [id number] 40mg [facility] hydroCHLORO thiazide 25 mg tablet 02-24 00:00: 00 06-09 00:00 :00 No [id number] 25mg Take 1 tablet by mouth in the morning. [facility] ketorolac (TORADOL) injection 30 mg 02-19 18:15: 00 02-19 19:08 :00 No 30mg 30 mg, Intramuscu lar, ONCE, 1 dose, On Fri02/19/23 at 1315, Routine [facility] dexamethaso ne (DECADRON PHOSPHATE) injection 10 mg 02-19 18:15: 00 02-19 18:15 :00 No 10mg 10 mg, Oral, ONCE, 1 dose, On Fri02/19/23 at 1315, Routine [facility] methocarbam oL (ROBAXIN) tablet 1,500 mg 02-19 17:15: 00 02-19 19:07 :00 No 1500mg 1,500 mg, Oral, ONCE, 1 dose, On 3/29/23 at 1215, QAMAR [facility] ketorolac 10 mg tablet 3 00:00: 00 04-08 00:00 :00 No [id number] 10mg Take 1 tablet by mouth every 6 (six) hours as needed for Pain (scale 7-10). [facility] methocarbam oL 500 mg tablet 3 00:00: 00 02-27 04:59 :00 No [id number] 500mg Take 1 tablet by mouth 4 (four) times daily for 7 days. [facility] ibuprofen 800 mg tablet 02-03 00:00: 00 Yes [id number] 800mg Take 1 tablet by mouth every 6 (six) hours as needed for Pain (scale 4-6). [facility] HYDROcodone -acetaminop hen 10-325 mg tablet 02-03 00:00: 00 03-05 00:00 :00 No [id number] 1{tbl} Take 1 tablet by mouth every 6 (six) hours as needed for Pain (scale 4-6). Indication s: chronic pain [facility] LOSARTAN 100 mg tablet 3 00:00: 00 06-09 00:00 :00 No [id number] 100mg TAKE 1 TABLET BY MOUTH IN THE MORNING [facility] pantoprazol e 20 mg EC tablet 12-31 00:00: 00 06-09 00:00 :00 No [id number] 20mg Take 1 tablet by mouth in the morning. [facility] albuterol 90 mcg/actuati on inhaler 2- 00:00: 00 03-04 00:00 :00 No [id number] INHALE 2 PUFFS BY MOUTH EVERY 4 HOURS NEEDED FOR WHEEZING [facility] HYDROcodone -acetaminop hen 10-325 mg tablet 2- 00:00: 00 02-03 00:00 :00 No [id number] 1{tbl} Take 1 tablet by mouth every 6 (six) hours as needed for Pain (scale 4-6). Indication s: chronic pain [facility] ibuprofen 800 mg tablet 2 00:00: 00 02-03 00:00 :00 No [id number] 800mg Take 1 tablet by mouth every 6 (six) hours as needed for Pain (scale 4-6). [facility] pantoprazol e 20 mg EC tablet 2 00:00: 00 12-31 00:00 :00 No [id number] 20mg Take 1 tablet by mouth in the morning. [facility] albuterol 90 mcg/actuati on inhaler 1- 00:00: 00 12-30 00:00 :00 No [id number] INHALE 2 PUFFS BY MOUTH EVERY 4 HOURS NEEDED FOR WHEEZING [facility] HYDROcodone -acetaminop hen 10-325 mg tablet - 00:00: 00 12-30 00:00 :00 No [id number] 1{tbl} Take 1 tablet by mouth every 6 (six) hours as needed for Pain (scale 4-6) for up to 7 days. Indication s: chronic pain [facility] amLODIPine (NORVASC) 10 mg tablet 2021-11 00:00: 00 10-02 00:00 :00 No [id number] 10mg Take 1 tablet by mouth in the morning. [facility] lactulose 10 gram/15 mL solution 2021-11 2 00:00: 00 03-26 00:00 :00 No TAKE 15 ML BY MOUTH EVERY DAY NEEDED FOR CONSTIPATI ON [facility] HYDROcodone -acetaminop hen 10-325 mg tablet 2021-11 2- 00:00: 00 11-05 05:59 :00 No [id number] 1{tbl} Take 1 tablet by mouth every 6 (six) hours as needed for Pain (scale 4-6) for up to 7 days. Indication s: chronic pain [facility] amLODIPine (NORVASC) 5 mg tablet 2021-11 2- 00:00: 00 10-30 00:00 :00 No [id number] 5mg Take 1 tablet by mouth in the morning. [facility] albuterol 90 mcg/actuati on inhaler 2021-11- 00:00: 00 11-27 00:00 :00 No [id number] INHALE 2 PUFFS BY MOUTH EVERY 4 HOURS NEEDED FOR WHEEZING [facility] HYDROcodone -acetaminop hen 7.5-325 mg per tablet 2021-11- 00:00: 00 10-03 05:59 :00 No [id number] 1{tbl} Take 1 tablet by mouth every 6 (six) hours as needed for Pain for up to 7 days. Indication s: chronic pain [facility] venlafaxine 75 mg tablet 2021-11 0- 00:00: 00 06-09 00:00 :00 No [id number] 75mg Take 1 tablet by mouth in the morning and 1 tablet in the evening. [facility] clonazePAM 2 mg tablet 2021-11 00:00: 03-04 00:00 :00 No [id number] 2mg Take 1 tablet by mouth in the morning and 1 tablet in the evening. [facility] pantoprazol e 20 mg EC tablet 2021-11 00:00: 00 12-30 00:00 :00 No [id number] 20mg Take 1 tablet by mouth in the morning. [facility] albuterol 90 mcg/actuati on inhaler 2021-11 0- 00:00: 00 09-25 00:00 :00 No [id number] INHALE 2 PUFFS BY MOUTH EVERY 4 HOURS NEEDED FOR WHEEZING [facility] HYDROcodone -acetaminop hen 7.5-325 mg per tablet 2021-11 0-10 00:00: 00 09-10 04:59 :00 No [id number] 1{tbl} Take 1 tablet by mouth every 8 (eight) hours as needed for Pain for up to 7 days. Indication s: chronic pain [facility] NaCl 0.9% (NS) IV infusion 1,000 mL 2021-11 0- 17:45: 00 09-01 18:21 :00 No 1000mL at 999 mL/hr, Intravenou s, ONCE, 1 dose, On Fri09/01/22 at 1245, QAMAR [facility] cloNIDine (CATAPRES) tablet 0.1 mg 2021-11 0 17:30: 00 09-01 17:21 :00 No .1mg 0.1 mg, Oral, ONCE, 1 dose, On Fri09/01/22 at 1230, STAT [facility] LORazepam (ATIVAN) tablet 2 mg 2021-11 16:30: 00 09-01 17:11 :00 No 2mg 2 mg, Oral, ONCE, 1 dose, On Fri09/01/22 at 1130, [facility] iopamidol (ISOVUE 370-500 mL) injection 80 mL 2021-11 0 15:45: 00 09-01 16:00 :00 No [id number] 80mL 80 mL, Intravenou s, ONCE, 1 dose, On Fri09/01/22 at 1100, Routine [facility] ondansetron (ZOFRAN (PF)) injection 4 mg 2021-11 0 14:30: 00 09-01 14:21 :00 No 4mg 4 mg, Slow IV Push, ONCE, 1 dose, On Fri09/01/22 at 0930, [facility] morpHINE (4 mg/mL) injection 4 mg 2021-11 14:30: 00 09-01 14:22 :00 No 4mg 4 mg, Slow IV Push, ONCE, 1 dose, On Fri09/01/22 at 0930, STAT [facility] HYDROcodone -acetaminop hen 7.5-325 mg per tablet 9-14 00:00: 00 08-15 04:59 :00 No [id number] 1{tbl} Take 1 tablet by mouth every 6 (six) hours as needed for Pain for up to 7 days. Indication s: chronic pain [facility] budesonide/ formoterol fumarate (SYMBICORT INHALE) 810 15:39: 24 07-03 00:00 :00 No Inhale. [facility] temazepam 15 mg capsule 07-03 15:36: 31 07-03 00:00 :00 No 15mg Take 15 mg by mouth at bedtime as needed for Insomnia. [facility] Venlafaxine 225 mg TR24 07-03 15:34: 06 07-03 00:00 :00 No 75mg Take 75 mg by mouth every morning. [facility] losartan 100 mg tablet 07-03 00:00: 00 01-28 00:00 :00 No [id number] 100mg Take 1 tablet by mouth in the morning. [facility] venlafaxine 75 mg tablet 07-03 00:00: 00 09-02 00:00 :00 No [id number] 75mg Take 1 tablet by mouth in the morning and 1 tablet in the evening. [facility] pantoprazol e 20 mg EC tablet 07-03 00:00: 00 09-02 00:00 :00 No [id number] 20mg Take 1 tablet by mouth in the morning. [facility] clonazePAM 2 mg tablet 07-03 00:00: 00 09-02 00:00 :00 No [id number] 2mg Take 1 tablet by mouth in the morning and 1 tablet in the evening. [facility] albuterol 90 mcg/actuati on inhaler 07-03 00:00: 00 09-02 00:00 :00 No [id number] INHALE 2 PUFFS BY MOUTH EVERY 4 HOURS NEEDED FOR WHEEZING [facility] HYDROcodone -acetaminop hen 7.5-325 mg per tablet 07-03 00:00: 00 07-11 04:59 :00 No [id number] 1{tbl} Take 1 tablet by mouth every 8 (eight) hours as needed for Pain for up to 7 days. Indication s: chronic pain [facility] ALBUTEROL 90 mcg/actuati on inhaler -17 00:00: 00 07-03 00:00 :00 No [id number] INHALE 2 PUFFS BY MOUTH EVERY 4 HOURS NEEDED FOR WHEEZING [facility] acetaminoph en-codeine (TYLENOL-CO DEINE #3) 300-30 mg tablet 4-21 00:00: 00 07-03 00:00 :00 No [id number] 1{tbl} Take 1 tablet by mouth every 4 (four) hours as needed for Pain (scale 4-6) or Pain (scale 7-10). Indication s: acute pain [facility] traMADoL 50 mg tablet 4-14 00:00: 00 07-03 00:00 :00 No [id number] 50mg Take 1 tablet by mouth every 4 (four) hours as needed for Pain (scale 7-10). Indication s: acute pain [facility] pentazocine -naloxone 50-0.5 mg tablet 4-11 00:00: 00 07-03 00:00 :00 No [id number] 1{tbl} Take 1 tablet by mouth every 4 (four) hours as needed for Pain. Indication s: acute pain [facility] diclofenac 75 mg EC tablet 2020-11 2-16 00:00: 00 12-30 00:00 :00 No [id number] 75mg Take 1 tablet by mouth 2 (two) times daily with meals. [facility] traMADoL 50 mg tablet 2020-11 2-09 00:00: 00 07-03 00:00 :00 No [id number] 50mg Take 1 tablet by mouth every 4 (four) hours as needed for Pain (scale 7-10). Indication s: acute pain [facility] METOPROLOL SUCCINATE XL 25 mg 24 hr tablet 2020-11 1-30 00:00: 00 07-03 00:00 :00 No TAKE 1 TABLET BY MOUTH TWICE DAILY [facility] budesonide- formoteroL (SYMBICORT) 160-4.5 mcg/actuati on inhaler 2020-11 0-13 00:00: 00 07-03 00:00 :00 No [id number] 2{puff} Inhale 2 Puffs 2 (two) times daily. [facility] pantoprazol e 20 mg EC tablet 2020-11 0-13 00:00: 00 07-03 00:00 :00 No [id number] 20mg Take 1 tablet by mouth daily. [facility] losartan 100 mg tablet 2020-11 0-13 00:00: 00 07-03 00:00 :00 No [id number] 100mg Take 1 tablet by mouth daily. [facility] Diclofenac Sodium (VOLTAREN) 1 % gel 2020-11 0-07 00:00: 00 07-03 00:00 :00 No [id number] Apply to area(s) 2 (two) times daily. [facility] OLANZapine 10 mg tablet 9-29 00:00: 00 07-03 00:00 :00 No 10mg Take 10 mg by mouth every morning. [facility] ARIPiprazol e 2 mg tablet 6-12 00:00: 00 07-03 00:00 :00 No [facility] clonazePAM 2 mg tablet 5-05 00:00: 00 07-03 00:00 :00 No [facility] Vital Signs Vital Name Observation Time Observation Value Comments S ource Systolic blood pressure 2024-01-14 16:06:00 137 mm[Hg] [facility] Diastolic blood pressure 2024-01-14 16:06:00 85 mm[Hg] [facility] Heart rate 2024-01-14 16:05:00 92 /min [facility] Body height 2024-01-14 16:05:00 154.9 cm [facility] Body weight 2024-01-14 16:05:00 86.093 kg [facility] BMI 2024-01-14 16:05:00 35.86 kg/m2 [facility] Oxygen saturation in Arterial blood by Pulse oximetry 2024-01-14 16:05:00 94 /min [facility] Systolic blood pressure 2023-12-15 15:19:00 139 mm[Hg] [facility] Diastolic blood pressure 2023-12-15 15:19:00 89 mm[Hg] [facility] Heart rate 2023-12-15 15:19:00 102 /min [facility] Res[facility] rate 2023-12-15 15:19:00 18 /min [facility] Body height 2023-12-15 15:19:[address] [facility] Body weight 2023-12-15 15:19:[address] [facility] BMI 2023-12-15 15:19:00 36.03 kg/m2 Univ [facility] Oxygen saturation in Arterial blood by Pulse oximetry 2023-12-15 15:19:00 94 /min [facility] Systolic blood pressure 2023-11-12 15:54:00 124 mm[Hg] [facility] Diastolic blood pressure 2023-11-12 15:54:00 86 mm[Hg] [facility] Heart rate 2023-11-12 15:54:00 96 /min [facility] Body height 2023-11-12 15:54:[address] [facility] Body weight 2023-11-12 15:54:00 84.641 kg [facility] BMI 2023-11-12 15:54:00 34.13 kg/m2 [facility] Oxygen saturation in Arterial blood by Pulse oximetry 2023-11-12 15:54:00 96 /min [facility] Systolic blood pressure 2023-10-02 18:23:00 163 mm[Hg] [facility] Diastolic blood pressure 2023-10-02 18:23:00 100 mm[Hg] [facility] Heart rate 2023-10-02 18:22:00 96 /min [facility] Respiratory rate 2023-10-02 18:22:00 18 /min [facility] Body height 2023-10-02 18:22:[address] [facility] Body weight 2023-10-02 18:22:[address] [facility] BMI 2023-10-02 18:22:00 37.83 kg/m2 [facility] Oxygen saturation in Arterial blood by Pulse oximetry 2023-10-02 18:22:00 97 /min [facility] Systolic blood pressure 2023-09-29 08:11:00 136 mm[Hg] [facility] Diastolic blood pressure 2023-09-29 08:11:00 90 mm[Hg] [facility] Heart rate 2023-09-29 08:11:00 87 /min [facility] Body temperature 2023-09-29 08:11:00 36.72 [place] [facility] Respiratory rate 2023-09-29 08:11:00 20 /min [facility] Body height 2023-09-29 08:11:00 154.9 cm [facility] Body weight 2023-09-29 08:11:00 87.091 kg [facility] BMI 2023-09-29 08:11:00 36.28 kg/m2 [facility] Oxygen saturation in Arterial blood by Pulse oximetry 2023-09-29 08:11:00 94 /min [facility] Systolic blood pressure 2023-09-04 15:33:00 132 mm[Hg] [facility] Diastolic blood pressure 2023-09-04 15:33:00 77 mm[Hg] [facility] Heart rate 2023-09-04 15:33:00 94 /min [facility] Body temperature 2023-09-04 15:33:00 36.28 [place] [facility] Body height 2023-09-04 15:33:00 154.9 cm [facility] Body weight 2023-09-04 15:33:00 87.317 kg [facility] BMI 2023-09-04 15:33:00 36.37 kg/m2 [facility] Oxygen saturation in Arterial blood by Pulse oximetry 2023-09-04 15:33:00 95 /min [facility] Systolic blood pressure 2023-08-11 15:56:00 131 mm[Hg] [facility] Diastolic blood pressure 2023-08-11 15:56:00 86 mm[Hg] [facility] Heart rate 2023-08-11 15:56:00 101 /min [facility] Body temperature 2023-08-11 15:56:00 35.56 [place] [facility] Respiratory rate 2023-08-11 15:56:00 19 /min [facility] Body height 2023-08-11 15:56:00 154.9 cm [facility] Body weight 2023-08-11 15:56:[address] [facility] BMI 2023-08-11 15:56:00 37.05 kg/m2 [facility] Oxygen saturation in Arterial blood by Pulse oximetry 2023-08-11 15:56:00 93 /min [facility] Systolic blood pressure 2023-08-06 15:14:00 132 mm[Hg] [facility] Diastolic blood pressure 2023-08-06 15:14:00 78 mm[Hg] [facility] Heart rate 2023-08-06 15:13:00 91 /min [facility] Respiratory rate 2023-08-06 15:13:00 18 /min [facility] Body height 2023-08-06 15:13:[address] [facility] Body weight 2023-08-06 15:13:[address] [facility] BMI 2023-08-06 15:13:00 36.60 kg/m2 [facility] Oxygen saturation in Arterial blood by Pulse oximetry 2023-08-06 15:13:00 96 /min [facility] Systolic blood pressure 2023-07-09 20:14:00 139 mm[Hg] [facility] Diastolic blood pressure 2023-07-09 20:14:00 85 mm[Hg] [facility] Heart rate 2023-07-09 20:14:00 96 /min [facility] Body height 2023-07-09 20:14:00 154.9 cm [facility] Body weight 2023-07-09 20:14:[address] [facility] BMI 2023-07-09 20:14:00 33.63 kg/m2 [facility] Oxygen saturation in Arterial blood by Pulse oximetry 2023-07-09 20:14:00 97 /min [facility] Systolic blood pressure 2023-06-20 14:45:00 114 mm[Hg] [facility] Diastolic blood pressure 2023-06-20 14:45:00 75 mm[Hg] [facility] Heart rate 2023-06-20 14:45:00 99 /min [facility] Respiratory rate 2023-06-20 14:45:00 18 /min [facility] Body height 2023-06-20 14:45:[address] [facility] Body weight 2023-06-20 14:45:[address] [facility] BMI 2023-06-20 14:45:00 33.89 kg/m2 [facility] Oxygen saturation in Arterial blood by Pulse oximetry 2023-06-20 14:45:00 90 /min [facility] Systolic blood pressure 2023-06-09 17:45:00 136 mm[Hg] [facility] Diastolic blood pressure 2023-06-09 17:45:00 80 mm[Hg] [facility] Heart rate 2023-06-09 17:45:00 108 /min [facility] Respiratory rate 2023-06-09 17:45:00 18 /min [facility] Body height 2023-06-09 17:45:00 154.9 cm [facility] Body weight 2023-06-09 17:45:[address] [facility] BMI 2023-06-09 17:45:00 33.08 kg/m2 [facility] Oxygen saturation in Arterial blood by Pulse oximetry 2023-06-09 17:45:00 96 /min [facility] Systolic blood pressure 2023-04-17 15:28:00 112 mm[Hg] [facility] Diastolic blood pressure 2023-04-17 15:28:00 78 mm[Hg] [facility] Heart rate 2023-04-17 15:28:00 87 /min [facility] Body temperature 2023-04-17 15:28:00 37.06 [place] [facility] Respiratory rate 2023-04-17 15:28:00 20 /min [facility] Body height 2023-04-17 15:28:[address] [facility] Body weight 2023-04-17 15:28:00 77.202 kg [facility] BMI 2023-04-17 15:28:00 32.16 kg/m2 [facility] Oxygen saturation in Arterial blood by Pulse oximetry 2023-04-17 15:28:00 96 /min [facility] Systolic blood pressure 2023-04-15 19:23:00 145 mm[Hg] [facility] Diastolic blood pressure 2023-04-15 19:23:00 93 mm[Hg] [facility] Heart rate 2023-04-15 19:17:00 89 /min [facility] Body temperature 2023-04-15 19:17:00 37 [place] [facility] Respiratory rate 2023-04-15 19:17:00 16 /min [facility] Body height 2023-04-15 19:17:00 154.9 cm [facility] Body weight 2023-04-15 19:17:00 78.019 kg [facility] BMI 2023-04-15 19:17:00 32.50 kg/m2 [facility] Oxygen saturation in Arterial blood by Pulse oximetry 2023-04-15 19:17:00 96 /min [facility] Systolic blood pressure 2023-04-13 22:55:00 132 mm[Hg] [facility] Diastolic blood pressure 2023-04-13 22:55:00 88 mm[Hg] [facility] Heart rate 2023-04-13 22:55:00 81 /min [facility] Body temperature 2023-04-13 22:55:00 37.22 [place] [facility] Respiratory rate 2023-04-13 22:55:00 14 /min [facility] Body height 2023-04-13 22:55:00 154.9 cm [facility] Body weight 2023-04-13 22:55:00 81.647 [facility] BMI 2023-04-13 22:55:00 34.01 kg/m2 [facility] Oxygen saturation in Arterial blood by Pulse oximetry 2023-04-13 22:55:00 99 /min [facility] Systolic blood pressure 2023-04-10 02:05:00 139 mm[Hg] [facility] Diastolic blood pressure 2023-04-10 02:05:00 73 mm[Hg] [facility] Heart rate 2023-04-10 02:05:00 87 /min [facility] Body temperature 2023-04-10 02:05:00 37.06 [place] [facility] Respiratory rate 2023-04-10 02:05:00 20 /min [facility] Body height 2023-04-10 02:05:00 154.9 cm [facility] Body weight 2023-04-10 02:05:[address] [facility] BMI 2023-04-10 02:05:00 34.01 kg/m2 [facility] Oxygen saturation in Arterial blood by Pulse oximetry 2023-04-10 02:05:00 98 /min [facility] Body height 2023-04-08 20:56:00 154.9 cm [facility] Body weight 2023-04-08 20:56:00 75.297 kg [facility] BMI 2023-04-08 20:56:00 31.37 kg/m2 [facility] Systolic blood pressure 2023-03-26 20:08:00 139 mm[Hg] [facility] Diastolic blood pressure 2023-03-26 20:08:00 72 mm[Hg] [facility] Heart rate 2023-03-26 19:39:00 92 /min [facility] Body height 2023-03-26 19:39:00 154.9 cm [facility] Body weight 2023-03-26 19:39:[address] [facility] BMI 2023-03-26 19:39:00 31.52 kg/m2 [facility] Oxygen saturation in Arterial blood by Pulse oximetry 2023-03-26 19:39:00 95 /min [facility] Body weight 2023-02-27 15:35:[address] [facility] BMI 2023-02-27 15:35:00 33.63 kg/m2 [facility] Systolic blood pressure 2023-02-24 16:36:00 132 mm[Hg] [facility] Diastolic blood pressure 2023-02-24 16:36:00 85 mm[Hg] [facility] Heart rate 2023-02-24 16:36:00 84 /min [facility] Oxygen saturation in Arterial blood by Pulse oximetry 2023-02-24 16:36:00 96 /min [facility] Body temperature 2023-02-24 16:35:00 37.56 [place] [facility] Body height 2023-02-24 16:35:00 154.9 cm [facility] Body weight 2023-02-24 16:35:00 80.967 kg [facility] BMI 2023-02-24 16:35:00 33.73 kg/m2 [facility] Systolic blood pressure 2023-02-19 15:32:00 153 mm[Hg] [facility] Diastolic blood pressure 2023-02-19 15:32:00 100 mm[Hg] [facility] Heart rate 2023-02-19 15:32:00 87 /min [facility] Body temperature 2023-02-19 15:32:00 37.11 [place] [facility] Respiratory rate 2023-02-19 15:32:00 18 /min [facility] Body weight 2023-02-19 15:32:00 82.555 kg [facility] BMI 2023-02-19 15:32:00 34.39 kg/m2 [facility] Oxygen saturation in Arterial blood by Pulse oximetry 2023-02-19 15:32:00 99 /min [facility] Systolic blood pressure 2023-02-03 19:38:00 155 mm[Hg] [facility] Diastolic blood pressure 2023-02-03 19:38:00 87 mm[Hg] [facility] Heart rate 2023-02-03 19:38:00 96 /min [facility] Body height 2023-02-03 19:37:00 154.9 cm [facility] Body weight 2023-02-03 19:37:00 82.827 kg [facility] BMI 2023-02-03 19:37:00 34.50 kg/m2 [facility] Oxygen saturation in Arterial blood by Pulse oximetry 2023-02-03 19:37:00 97 /min [facility] Systolic blood pressure 2022-12-30 18:30:00 135 mm[Hg] [facility] Diastolic blood pressure 2022-12-30 18:30:00 85 mm[Hg] [facility] Heart rate 2022-12-30 18:30:00 90 /min [facility] Body height 2022-12-30 18:30:00 154.9 cm [facility] Body weight 2022-12-30 18:30:00 79.878 [facility] BMI 2022-12-30 18:30:00 33.27 kg/m2 [facility] Oxygen saturation in Arterial blood by Pulse oximetry 2022-12-30 18:30:00 96 /min [facility] Systolic blood pressure 2022-11-27 19:49:00 144 mm[Hg] [facility] Diastolic blood pressure 2022-11-27 19:49:00 84 mm[Hg] [facility] Heart rate 2022-11-27 19:45:00 91 /min [facility] Body height 2022-11-27 19:45:00 154.9 cm [facility] Body weight 2022-11-27 19:45:00 80.423 kg [facility] BMI 2022-11-27 19:45:00 33.50 kg/m2 [facility] Oxygen saturation in Arterial blood by Pulse oximetry 2022-11-27 19:45:00 98 /min [facility] Systolic blood pressure 2022-10-30 16:59:00 165 mm[Hg] [facility] Diastolic blood pressure 2022-10-30 16:59:00 95 mm[Hg] [facility] Heart rate 2022-10-30 16:59:00 73 /min [facility] Oxygen saturation in Arterial blood by Pulse oximetry 2022-10-30 16:59:00 97 /min [facility] Body temperature 2022-10-30 16:57:00 36.39 [place] [facility] Respiratory rate 2022-10-30 16:57:00 16 /min [facility] Body height 2022-10-30 16:57:00 154.9 cm [facility] Body weight 2022-10-30 16:57:00 80.377 kg [facility] BMI 2022-10-30 16:57:00 33.48 kg/m2 [facility] Systolic blood pressure 2022-10-28 19:15:00 205 mm[Hg] [facility] Diastolic blood pressure 2022-10-28 19:15:00 103 mm[Hg] [facility] Heart rate 2022-10-28 19:14:00 89 /min [facility] Body height 2022-10-28 19:14:00 154.9 cm [facility] Body weight 2022-10-28 19:14:00 84.369 kg [facility] BMI 2022-10-28 19:14:00 35.14 kg/m2 [facility] Oxygen saturation in Arterial blood by Pulse oximetry 2022-10-28 19:14:00 96 /min [facility] Systolic blood pressure 2022-09-25 18:22:00 178 mm[Hg] [facility] Diastolic blood pressure 2022-09-25 18:22:00 92 mm[Hg] [facility] Heart rate 2022-09-25 18:13:00 92 /min [facility] Body height 2022-09-25 18:13:00 154.9 cm [facility] Body weight 2022-09-25 18:13:00 81.647 kg [facility] BMI 2022-09-25 18:13:00 34.01 kg/m2 [facility] Oxygen saturation in Arterial blood by Pulse oximetry 2022-09-25 18:13:00 97 /min [facility] Systolic blood pressure 2022-09-02 19:17:00 140 mm[Hg] [facility] Diastolic blood pressure 2022-09-02 19:17:00 80 mm[Hg] [facility] Heart rate 2022-09-02 19:17:00 106 /min [facility] Body weight 2022-09-02 19:17:00 73.483 kg [facility] BMI 2022-09-02 19:17:00 30.61 kg/m2 [facility] Oxygen saturation in Arterial blood by Pulse oximetry 2022-09-02 19:17:00 97 /min [facility] Systolic blood pressure 2022-09-01 18:15:00 142 mm[Hg] [facility] Diastolic blood pressure 2022-09-01 18:15:00 71 mm[Hg] [facility] Heart rate 2022-09-01 18:15:00 93 /min [facility] Respiratory rate 2022-09-01 18:15:00 19 /min [facility] Oxygen saturation in Arterial blood by Pulse oximetry 2022-09-01 18:15:00 98 /min [facility] Body temperature 2022-09-01 13:47:00 36.22 [place] [facility] Body weight 2022-09-01 13:47:00 83.008 kg [facility] BMI 2022-09-01 13:47:00 34.58 kg/m2 [facility] Systolic blood pressure 2022-07-03 20:15:00 156 mm[Hg] [facility] Diastolic blood pressure 2022-07-03 20:15:00 92 mm[Hg] [facility] Heart rate 2022-07-03 20:15:00 96 /min [facility] Body weight 2022-07-03 20:15:00 83.28 kg [facility] BMI 2022-07-03 20:15:00 34.69 kg/m2 [facility] Oxygen saturation in Arterial blood by Pulse oximetry 2022-07-03 20:15:00 97 /min [place] [facility] Procedures Procedure Date / Time Performed Performing Clinician Source AUTHORIZATION FOR RELEASE OF PHI 2023-10-30 06:01:00 Doctor Unassigned, Johnson [facility] CONSENT/REFUSAL FOR DIAGNOSIS AND TREATMENT 2023-09-29 08:23:02 Doctor Unassigned, Johnson [facility] ASSIGNMENT OF BENEFITS 2023-09-29 08:22:17 Docto r Unassigned, Johnson [facility] MEDICATION CORRESPONDENCE 2023-06-24 05:01:00 Do ctor Unassigned, Johnson [facility] POCT URINALYSIS 2023-06-09 18:18:00 [facility] INSURANCE CORRESPONDENCE 2023-05-30 05:01:00 Doc tor Unassigned, Johnson [facility] HIGH RISK HPV-THIN PREP 2023-04-17 16:00:00 Adum, Ju Mcleod [facility] PAP SMEAR-LIQUID BASED-CP 2023-04-17 16:00:00 Adum, Carol Mcleod [facility] LAB ONLY PAP SMEAR-LIQUID BASED 2023-04-17 16:00:00 Adum, Ellie Mcleod [facility] POCT TEST 2023-04-17 00:00:00 Adum, Ellie Mcleod [facility] POCT URINALYSIS 2023-04-15 19:29:00 Prosper Sims [facility] POCT TEST 2023-04-15 19:28:00 Stephane Snow [facility] ASSIGNMENT OF BENEFITS 2023-04-13 23:45:56 Docto r Unassigned, Johnson [facility] URINALYSIS 2023-04-13 23:24:00 [facility] [facility] CONSENT/REFUSAL FOR DIAGNOSIS AND TREATMENT 2023-04-13 22:45:01 Doctor Unassigned, Johnson [facility] NOTICE OF PRIVACY PRACTICES 2023-04-10 01:57:37 Doctor Unassigned, Johnson [facility] POCT URINALYSIS 2023-02-24 00:00:00 [facility] LUMBAR SPINE 3 VW 2023-02-19 17:37:06 Lydia Andrade [facility] XR KNEE 3 VW LEFT 2023-02-19 17:37:06 Quentin Andrade [facility] CONSENT/REFUSAL FOR DIAGNOSIS AND TREATMENT 2023-02-19 15:29:06 Doctor Unassigned, Johnson [facility] PATIENT FINANCIAL POLICY 2023-02-03 18:57:26 Doctor Unassigned, Johnson [facility] MEDICATION CORRESPONDENCE 2022-12-11 06:01:00 Do ctor Unassigned, Johnson [facility] MEDICATION CORRESPONDENCE 2022-11-22 06:01:00 Do ctor Unassigned, Johnson [facility] CONSENT/REFUSAL FOR DIAGNOSIS AND TREATMENT 2022-09-25 17:57:27 Doctor Unassigned, Johnson [facility] EKG-12 LEAD 2022-09-01 18:23:52 Deidra Meek [facility] CT CHEST PULMONARY ANGIOGRAM 2022-09-01 15:45:19 Deidra Meek [facility] XR CHEST 1 VW 2022-09-01 14:40:31 Deidra Meek [facility] URINE DRUG (IMMUNOASSAY) - COMPREHENSIVE DRUG SCREEN W/O REFLEX 2022-09-01 14:23:00 Deidra Meek [facility] LIPASE 2022-09-01 14:22:00 Deidra Meek [facility] MAGNESIUM 2022-09-01 14:22:00 Deidra Meek [facility] TROPONIN I 2022-09-01 14:22:00 Deidra Meek [facility] THYROID STIMULATING HORMONE 2022-09-01 14:22:00 Deidra Meek [facility] COMP. METABOLIC PANEL (36357) 2022-09-01 14:22:00 Deidra Meek [facility] ETHANOL 2022-09-01 14:22:00 Deidra Meek [facility] CBC WITH DIFF 2022-09-01 14:22:00 Deidra Meek [facility] D-DIMER 2022-09-01 14:22:00 Deidra Meek [facility] URINALYSIS 2022-09-01 14:22:00 Deidra Meek [facility] N-TERMINAL PRO-BNP 2022-09-01 14:22:00 Deidra Meek [facility] COVID-19 (ID NOW RAPID TESTING) 2022-09-01 14:22:00 Deidra Meek [facility] Encounters Start Date/Time End Date/Time Encounter Type Admission Type Attending [facility] Care Department Encounter ID Source 2021-09-25 05:37:23 Emergency [facility] [id number] [facility] it[facility] 2021-09-24 23:15:39 Emergency [facility] [id number] [facility] ity [facility] 2021-09-24 22:03:21 Emergency [facility] [id number] [facility] ity [facility] 2021-09-24 11:06:58 Emergency [facility] [id number] [facility] ity [facility] 2021-09-23 18:54:33 Emergency [facility] [id number] [facility] ity [facility] 2021-09-23 14:49:00 Emergency [facility] [id number] [facility] it[facility] 2021-09-21 14:23:37 Emergency [facility] [id number] [facility] ity [facility] 2021-09-21 11:35:45 Emergency [facility] [id number] [facility] ity [facility] 2021-09-21 07:31:33 Emergency [facility] [id number] [facility] ity [facility] 2021-09-21 06:11:19 Emergency [facility] [id number] [facility] 2021-08-10 08:51:00 Inpatient [facility] [id number] [facility] 2021-08-10 08:51:00 Inpatient [facility] [id number] [facility] 2024-08-09 09:00:00 2024-08-09 09:00:00 Outpatient Amador MACKENZIE BECKWITH [facility] [id number] [facility] 2024-03-15 12:30:00 2024-03-15 12:30:00 Outpatient R NGHIA MENENDEZ [facility] [id number] [facility] 2024-03-15 08:45:00 2024-03-15 08:45:00 Outpatient NGHIA MENDES [facility] [id number] [facility] 2024-02-11 00:00:00 2024-02-11 00:00:00 Telephone Shon [facility] MEDICAL OFFICE BUILDING 1.2.840.114 350.1.13.10 4.2.7.2.686 [id number] [facility] 2024-01-14 09:30:00 2024-01-14 10:15:26 Office [facility] MED[facility] OFF[facility] BUILD[facility] 1.2.840.114 350.1.13.10 4.2.7.2.686 [id number] [facility] 2024-01-14 09:30:00 2024-01-14 09:30:00 Outpatient R NGHIA MENENDEZ [facility] [id number] [facility] 2023-12-15 09:30:00 2023-12-15 09:45:00 Office Visit Menendez, [facility] MEDICAL OFFICE BUILDING 1.2.840.114 350.1.13.10 4.2.7.2.686 [id number] [facility] 2023-12-15 09:30:00 2023-12-15 09:30:00 Outpatient R NGHIA MENENDEZ [facility] [id number] [facility] 2023-11-12 09:30:00 2023-11-12 09:45:00 Office Visit Nghia Menendez [facility] JERALD?[facility] MED[facility] OFFICE BUILDING 1.2840.114 350.1.13.10 4.2.7.2.686 [id number] [facility] 2023-11-12 09:30:00 2023-11-12 09:30:00 Outpatient R NGHIA MENENDEZ [facility] [id number] [facility] 2023-10-30 00:00:00 2023-10-30 00:00:00 Telephone Nghia Menendez [facility] MEDICAL OFFICE BUILDING 1.0.114 350.1.13.10 4.2.7.2.686 [id number] [facility] 2023-10-30 00:00:00 2023-10-30 00:00:00 Orders Only Doctor Unassigned, Johnson [facility] 1.0.114 350.1.13.10 4.2.7.2.686 [id number] [facility] 2023-10-10 00:00:00 2023-10-10 00:00:00 [facility] MEDICAL OFFICE BUILDING 1.0.114 350.1.13.10 4.2.7.2.686 [id number] [facility] 2023-10-09 00:00:00 2023-10-09 00:00:00 Refill Shno [facility] JERALD?[facility] MEDICAL OFFICE BUILDING 1.840.114 350.1.13.10 4.2.7.2.686 [id number] [id number] [facility] 2023-10-09 00:00:00 2023-10-09 00:00:00 [facility] MEDICAL OFFICE BUILDING 1.2.840.114 350.1.13.10 4.2.7.2.686 [id number] [id number] [facility] 2023-10-06 00:00:00 2023-10-06 00:00:00 [facility] MEDICAL OFFICE BUILDING 1.2.840.114 350.1.13.10 4.2.7.2.686 [id number] [facility] 2023-10-06 00:00:00 2023-10-06 00:00:00 Refill Shon [facility] JERALD?[facility] MEDICAL OFFICE BUILDING 1.2.840.114 350.1.13.10 4.2.7.2.686 [id number] [facility] 2023-10-06 00:00:00 2023-10-06 00:00:00 Telephone Nghia Menendez [facility] J[facility]D?[facility] MEDICAL OFFICE BUILDING 1.2.840.114 350.1.13.10 4.2.7.2.686 [id number] [id number] [facility] 2023-10-02 12:45:00 2023-10-02 13:00:00 Office Visit Nghia Menendez [facility] JER[facility]D?[facility] MEDICAL OFFICE BUILDING 1.2.840.114 350.1.13.10 4.2.7.2.686 [id number] [facility] 2023-10-02 12:45:00 2023-10-02 12:45:00 Outpatient R NGHIA MENENDEZ [facility] [id number] [facility] 2023-09-29 02:16:00 2023-09-29 07:39:00 Emergency X CHAY WEEKS [facility] ERT [id number] [facility] 2023-09-29 02:16:00 2023-09-29 07:39:00 Emergency Chay We[facility] 1.2840.114 350.1.13.10 4.2.7.2.686 [id number] [facility] 2023-09-19 09:00:00 2023-09-19 09:00:00 Outpatient ALTON VIDES SHIWAN [facility] [id number] [facility] 2023-09-17 10:00:00 2023-09-17 10:00:00 Outpatient NGHIA MENDES [facility] [id number] [facility] 2023-09-16 00:00:00 2023-09-16 00:00:00 Telephone Shon [facility] JERALD?SUSANA [facility] MEDICAL OFFICE BUILDING 1.2840.114 350.1.13.10 4.2.7.2.686 [id number] [facility] 2023-09-15 00:00:00 2023-09-15 00:00:00 Telephone Shon [facility] JERALD?S[facility] MEDICAL OFFICE BUILDING 1.2840.114 350.1.13.10 4.2.7.2.686 [id number] 044 [id number] [facility] 2023-09-11 00:00:00 2023-09-11 00:00:00 Refill Shon [facility] MEDICAL OFFICE BUILDING 1.284.114 350.1.13.10 4.2.7.2.686 [id number] [id number] [facility] 2023-09-09 00:00:00 2023-09-09 00:00:00 Telephone Shon [facility] MEDICAL OFFICE BUILDING 1.2840.114 350.1.13.10 4.2.7.2.686 [id number] [id number] [facility] 2023-09-08 00:00:00 2023-09-08 00:00:00 [facility] MEDICAL OFFICE BUILDING 1..840.114 350.1.13.10 4.2.7.2.686 [id number] [id number] [facility] 2023-09-04 12:00:00 2023-09-04 12:00:00 Outpatient R NGHIA MENENDEZ [facility] [id number] [facility] 2023-09-04 12:00:00 2023-09-04 12:00:00 [facility] MEDICAL OFFICE BUILDING 1..840.114 350.1.13.10 4.2.7.2.686 [id number] [facility] 2023-09-04 09:30:00 2023-09-04 09:30:00 Outpatient R NGHIA MENENDEZ [facility] [id number] [facility] 2023-09-04 00:00:00 2023-09-04 00:00:00 Telephone Nghia [facility]endez [facility] MEDICAL OFFICE BUILDING 1..840.114 350.1.13.10 4.2.7.2.686 [id number] [facility] 2023-08-20 10:00:00 2023-08-20 10:00:00 Outpatient R ELLIE DELUCA [facility] [id number] [facility] 2023-08-15 00:00:00 2023-08-15 00:00:00 Refill Shon [facility] MEDICAL OFFICE BUILDING 1..840.114 350.1.13.10 4.2.7.2.686 [id number] [facility] 2023-08-11 11:00:00 2023-08-11 11:13:55 Outpatient R MACKENZIE BECKWITH [facility] [id number] [facility] 2023-08-11 11:00:00 2023-08-11 11:13:55 [facility] 1.2.840.114 350.1.13.10 4.2.7.2.686 [id number] [facility] 2023-08-08 08:00:00 2023-08-08 08:00:00 Outpatient R [facility] [id number] [facility] 2023-08-06 10:00:00 2023-08-06 10:27:52 Outpatient R SHON NGHIA [facility] [id number] [facility] 2023-08-06 10:00:00 2023-08-06 10:15:00 Office Visit Shon [facility]?ANGELGloria [facility] BUILDING 1.2.840.114 350.1.13.10 4.2.7.2.686 [id number] [facility] 2023-07-29 08:45:00 2023-07-29 08:45:00 Outpatient R YARI HORNE [facility] [id number] [facility] 2023-07-09 15:00:00 2023-07-09 15:25:34 Outpatient R NGHIA MENENDEZ [facility] [id number] [facility] 2023-07-09 15:00:00 2023-07-09 15:25:34 Office Visit Shon [facility]?ANGELGloria [facility] OFFICE BUILDING 1.2.840.114 350.1.13.10 4.2.7.2.686 [id number] [facility] 2023-06-25 00:00:00 2023-06-25 00:00:00 Patient Secure Msg Doctor Unassigned, Johnson [facility] 1.2840.114 350.1.13.10 4.2.7.2.686 [id number] [facility] 2023-06-24 00:00:00 2023-06-24 00:00:00 Refill Alton Reyes [facility] 1.2840.114 350.1.13.10 4.2.7.2.686 [id number] [facility] 2023-06-24 00:00:00 2023-06-24 00:00:00 Orders Only Doctor Unassigned, Johnson [facility] 1.20.114 350.1.13.10 4.2.7.2.686 [id number] [facility] 2023-06-20 10:00:00 2023-06-20 10:04:10 Out[facility] [id number] [facility] 2023-06-20 10:00:00 2023-06-20 10:04:10 Office Visit Alton Reyes [facility] 1.20.114 350.1.13.10 4.2.7.2.686 [id number] [facility] 2023-06-18 00:00:00 2023-06-18 00:00:00 Patient Secure Msg Doctor Unassigned, Johnson [facility] BUILDING 1.2840.114 350.1.13.10 4.2.7.2.686 [id number] [facility] 2023-06-16 00:00:00 2023-06-16 00:00:00 Telephone Nghia Menendez [facility] OFF[facility] BUILDING 1.2840.114 350.1.13.10 4.2.7.2.686 [id number] 044 [id number] [facility] 2023-06-16 00:00:00 2023-06-16 00:00:00 Patient Secure Msg Doctor Unassigned, Johnson [facility] 1.2840.114 350.1.13.10 4.2.7.2.686 [id number] [facility] 2023-06-10 00:00:00 2023-06-10 00:00:00 Telephone Shon [facility] JERALD?[facility] MEDICAL OFFICE BUILDING 1..840.114 350.1.13.10 4.2.7.2.686 [id number] [facility] 2023-06-10 00:00:00 2023-06-10 00:00:00 Telephone Nghia Menendez [facility] J[facility]D?[facility] MEDICAL OFFICE BUILDING 1..840.114 350.1.13.10 4.2.7.2.686 [id number] [facility] 2023-06-10 00:00:00 2023-06-10 00:00:00 Patient Secure Msg Doctor Unassigned, Johnson [facility] MEDICAL OFFICE BUILDING 1.2.840.114 350.1.13.10 4.2.7.2.686 [id number] [facility] 2023-06-09 12:30:00 2023-06-09 13:25:02 Outpatient R NGHIA MENENDEZ [facility] [id number] [facility] 2023-06-09 12:30:00 2023-06-09 13:25:02 [facility] MEDICAL OFFICE BUILDING 1.2.840.114 350.1.13.10 4.2.7.2.686 [id number] [facility] 2023-05-30 00:00:00 2023-05-30 00:00:00 Orders Only Doctor Unassigned, Johnson [facility] 1.84.114 350.1.13.10 4.2.7.2.686 [id number] [facility] 2023-05-28 00:00:00 2023-05-28 00:00:00 Refill Shon Nghia [facility]SUSANA [facility] MEDICAL OFFICE BUILDING 1.84.114 350.1.13.10 4.2.7.2.686 [id number] [facility] 2023-05-23 00:00:00 2023-05-23 00:00:00 Outpatient ELLIE BUENROSTRO [facility] [id number] [facility] 2023-05-07 00:00:00 2023-05-07 00:00:00 Telephone AdEllie call [facility] 1.840.114 350.1.13.10 4.2.7.2.686 [id number] [facility] 2023-04-23 00:00:00 2023-04-23 00:00:00 Outpatient MAMIE MOREJON [facility] [id number] [facility] 2023-04-19 00:00:00 2023-04-19 00:00:00 Telephone Kiera Handy [facility]SUSANA [facility] MEDICAL OFFICE BUILDING 1.84.114 350.1.13.10 4.2.7.2.686 [id number] [facility] 2023-04-17 11:30:00 2023-04-17 11:45:00 Jewelry Sales Representative Visit 2, Adc Lab AdEllie call [facility] BUILDING 1.84.114 350.1.13.10 4.2.7.2.686 [id number] [facility] 2023-04-17 10:00:00 2023-04-17 11:06:42 Outpatient ELLIE BUENROSTRO [facility] [id number] [facility] 2023-04-17 10:00:00 2023-04-17 11:06:42 Office Visit Ellie Deluca [facility] BUILDING 1.2.840.114 350.1.13.10 4.2.7.2.686 [id number] [facility] 2023-04-16 00:00:00 2023-04-16 00:00:00 Patient Outreach Heather Saavedra [facility] OFFICE BUILDING 1.2.840.114 350.1.13.10 4.2.7.2.686 [id number] [facility] 2023-04-16 00:00:00 2023-04-16 00:00:00 Telephone Nghia Menendez [facility] MEDICAL OFFICE BUILDING 1.2.840.114 350.1.13.10 4.2.7.2.686 [id number] [facility] 2023-04-15 14:20:00 2023-04-15 14:40:00 Urgent Care EricProsper rocha Unknown, Attending [facility] MEDICAL OFFICE BUILDING 1.2.840.114 350.1.13.10 4.2.7.2.686 [id number] [facility] 2023-04-15 14:20:00 2023-04-15 14:20:00 Outpatient R PROSPER SIMS [facility] [id number] [facility] 2023-04-13 17:56:00 2023-04-13 19:44:00 Emergency X DERECK JOHNSON TIMOTHY [facility] ERT [id number] [facility] 2023-04-13 17:56:00 2023-04-13 19:44:00 Emergency Dereck [facility] 1.2840.114 350.1.13.10 4.2.7.2.686 [id number] [facility] 2023-04-09 21:07:00 2023-04-09 21:49:00 [facility] [id number] [facility] 2023-04-09 21:07:00 2023-04-09 21:49:00 Emergency [place], [facility] 1.20.114 350.1.13.10 4.2.7.2.686 [id number] [facility] 2023-04-09 00:00:00 2023-04-09 00:00:00 Telephone Menendez [facility] MEDICAL OFFICE BUILDING 1.84.114 350.1.13.10 4.2.7.2.686 [id number] [facility] 2023-04-08 16:05:00 2023-04-08 23:59:00 Outpatient R MAMIE BARBOZA [facility] [id number] [facility] 2023-04-08 15:45:00 2023-04-08 16:00:00 Office Visit Mamie Barboza [facility] MEDICAL OFFICE BUILDING 1.84.114 350.1.13.10 4.2.7.2.686 [id number] [facility] 2023-03-28 00:00:00 2023-03-28 00:00:00 Telephone MenendezNghia millan [facility] BUILDING 1.84.114 350.1.13.10 4.2.7.2.686 [id number] [facility] 2023-03-28 00:00:00 2023-03-28 00:00:00 [facility] MEDICAL OFFICE BUILDING 1.114 350.1.13.10 4.2.7.2.686 [id number] [facility] 2023-03-27 09:30:00 2023-03-27 09:30:00 Outpatient R NGHIA MENENDEZ [facility] [id number] [facility] 2023-03-26 15:00:00 2023-03-26 15:15:00 Office [facility] MEDICAL OFFICE BUILDING 1.840.114 350.1.13.10 4.2.7.2.686 [id number] [facility] 2023-03-26 15:00:00 2023-03-26 15:00:00 Outpatient R NGHIA MENENDEZ [facility] [id number] [facility] 2023-03-26 08:30:00 2023-03-26 08:30:00 Outpatient R MENENDEZ NGHIA [facility] [id number] [facility] 2023-03-20 07:30:00 2023-03-20 07:30:00 Outpatient R NGHIA MENENDEZ [facility] [id number] [facility] 2023-03-17 00:00:00 2023-03-17 00:00:00 [facility] 1..840.114 350.1.13.10 4.2.7.2.686 [id number] [facility] 2023-03-05 00:00:00 2023-03-05 00:00:00 Telephone [facility] MED[facility] 1..840.114 350.1.13.10 4.2.7.2.686 [id number] [facility] 2023-03-05 00:00:00 2023-03-05 00:00:00 Telephone Shon Nghia [facility] JERALD?[facility] MEDICAL OFFICE BUILDING 1.84.114 350.1.13.10 4.2.7.2.686 [id number] [facility] 2023-03-03 00:00:00 2023-03-03 00:00:00 Refill Nghia Menendez [facility] MEDICAL OFFICE BUILDING 1.84114 350.1.13.10 4.2.7.2.686 [id number] [facility] 2023-02-28 00:00:00 2023-02-28 00:00:00 Refill Shon Nghia [facility] MEDICAL OFFICE BUILDING 1.84.114 350.1.13.10 4.2.7.2.686 [id number] [facility] 2023-02-27 10:30:00 2023-02-27 12:21:16 Outpatient R CHONG BAILEY [facility] [id number] [facility] 2023-02-27 10:30:00 2023-02-27 12:21:16 Office Visit Mamie Barboza Craig [facility] MEDICAL OFFICE BUILDING 1.84.114 350.1.13.10 4.2.7.2.686 [id number] [facility] 2023-02-24 12:15:00 2023-02-24 12:15:00 Outpatient R NGHIA MENENDEZ [facility] [id number] [facility] 2023-02-24 11:30:00 2023-02-24 12:04:36 Outpatient R NGHIA MENENDEZ [facility] [id number] [facility] 2023-02-24 11:30:00 2023-02-24 12:04:36 Office Visit Menendez, Nghia [facility] MEDICAL OFFICE BUILDING 1.84.114 350.1.13.10 4.2.7.2.686 [id number] [facility] 2023-02-19 10:33:00 2023-02-19 14:10:00 Emergency X SANDRA ANDRADE [facility] ERT [id number] [facility] 2023-02-19 10:33:00 2023-02-19 14:10:00 Emergency Sandra [facility] 1..840.114 350.1.13.10 4.2.7.2.686 [id number] [facility] 2023-02-07 08:15:00 2023-02-07 08:30:00 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, Vipin Menendez [facility] MEDICAL OFFICE BUILDING 1..840.114 350.1.13.10 4.2.7.2.686 [id number] [facility] 2023-02-07 08:15:00 2023-02-07 08:15:00 Outpatient NGHIA MENDES [facility] [id number] [facility] 2023-02-04 09:45:00 2023-02-04 09:45:00 Outpatient NGHIA MENDES [facility] [id number] [facility] 2023-02-03 14:00:00 2023-02-03 14:15:00 Office Visit Shon [facility] MEDICAL OFFICE BUILDING 1..840.114 350.1.13.10 4.2.7.2.686 [id number] [facility] 2023-02-03 14:00:00 2023-02-03 14:00:00 Outpatient NGHIA MENDES [facility] [id number] [facility] 2023-02-03 00:00:00 2023-02-03 00:00:00 Orders Only Doctor Unassigned, Johnson [facility] 1.2.840.114 350.1.13.10 4.2.7.2.686 [id number] [facility] 2023-01-28 00:00:00 2023-01-28 00:00:00 [facility] MEDICAL OFFICE BUILDING 1.2840.114 350.1.13.10 4.2.7.2.686 [id number] [id number] [facility] 2023-01-02 00:00:00 2023-01-02 00:00:00 Telephone Nghia Menendez [facility] MEDICAL OFFICE BUILDING 1.20.114 350.1.13.10 4.2.7.2.686 [id number] [facility] 2022-12-31 00:00:00 2022-12-31 00:00:00 Refill Shon [facility] JERALD?[facility] MEDICAL OFFICE BUILDING 1.20.114 350.1.13.10 4.2.7.2.686 [id number] [facility] 2022-12-30 12:30:00 2022-12-30 12:45:00 Office Visit Nghia Menendez [facility] [place] MEDICAL OFFICE BUILDING 1.2840.114 350.1.13.10 4.2.7.2.686 [id number] [facility] 2022-12-30 12:30:00 2022-12-30 12:30:00 Outpatient R NGHIA MENENDEZ [facility] [id number] [facility] 2022-12-18 00:00:00 2022-12-18 00:00:00 Telephone Shon [facility] JERALD?[facility] MEDICAL OFFICE BUILDING 1.2840.114 350.1.13.10 4.2.7.2.686 [id number] [facility] 2022-12-11 00:00:00 2022-12-11 00:00:00 Orders Only Doctor Unassigned, Johnson [facility] 1.2840.114 350.1.13.10 4.2.7.2.686 [id number] [facility] 2022-12-10 15:00:00 2022-12-10 15:00:00 Outpatient MEAGHAN MOSELEY [facility] [id number] [facility] 2022-11-28 13:00:00 2022-11-28 13:00:00 Outpatient NGHIA MENDES [facility] [id number] [facility] 2022-11-27 13:45:00 2022-11-27 14:14:10 [facility] [id number] [facility] 2022-11-27 13:45:00 2022-11-27 14:00:00 [facility] MEDICAL OFFICE BUILDING 1.2.840.114 350.1.13.10 4.2.7.2.686 [id number] [facility] 2022-11-25 00:00:00 2022-11-25 00:00:00 Telephone Menendez, [facility] MEDICAL OFFICE BUILDING 1.2.840.114 350.1.13.10 4.2.7.2.686 [id number] [facility] 2022-11-22 00:00:00 2022-11-22 00:00:00 Orders Only Doctor Unassigned, Johnson [facility] 1.2840.114 350.1.13.10 4.2.7.2.686 [id number] [facility] 2022-11-12 00:00:00 2022-11-12 00:00:00 Outpatient MACKENZIE APGAN [facility] [id number] [facility] 2022-10-30 10:20:00 2022-10-30 11:17:22 Outpatient R MACKENZIE BECKWITH [facility] [id number] [facility] 2022-10-30 10:20:00 2022-10-30 11:17:22 Office [facility] 1.840.114 350.1.13.10 4.2.7.2.686 [id number] [facility] 2022-10-28 13:15:00 2022-10-28 13:32:14 Outpatient R MENENDEZNGHIA MILLAN [facility] [id number] [facility] 2022-10-28 13:15:00 2022-10-28 13:30:00 Office Visit Shon [facility] MEDICAL OFFICE BUILDING 1.840.114 350.1.13.10 4.2.7.2.686 [id number] [facility] 2022-10-01 00:00:00 2022-10-01 00:00:00 Telephone QuentinHeather [facility] [place] MEDICAL OFFICE BUILDING 1.84.114 350.1.13.10 4.2.7.2.686 [id number] [facility] 2022-09-26 00:00:00 2022-09-26 00:00:00 Patient Outreach Heather Saavedra [facility] MEDICAL OFFICE BUILDING 1.84.114 350.1.13.10 4.2.7.2.686 [id number] [facility] 2022-09-25 13:00:00 2022-09-25 13:15:00 Office Visit Shon [facility] MEDICAL OFFICE BUILDING 1.84.114 350.1.13.10 4.2.7.2.686 [id number] [facility] 2022-09-25 13:00:00 2022-09-25 13:00:00 Outpatient NGHIA MENDES [facility] [id number] [facility] 2022-09-25 00:00:00 2022-09-25 00:00:00 Orders Only Doctor Unassigned, Johnson [facility] 1..840.114 350.1.13.10 4.2.7.2.686 [id number] [facility] 2022-09-02 14:00:00 2022-09-02 14:26:56 Outpatient NGHIA MENDES [facility] [id number] [facility] 2022-09-02 14:00:00 2022-09-02 14:15:00 Office Visit Menendez, [facility] MEDICAL OFFICE BUILDING 1..840.114 350.1.13.10 4.2.7.2.686 [id number] 044 [id number] [facility] 2022-09-02 00:00:00 2022-09-02 00:00:00 Telephone Shon [facility] MEDICAL OFFICE BUILDING 1..840.114 350.1.13.10 4.2.7.2.686 [id number] [id number] [facility] 2022-09-01 08:47:00 2022-09-01 14:18:00 Emergency X DEIDRA MEEK [facility] ERT [id number] [facility] 2022-09-01 08:47:00 2022-09-01 14:18:00 Emergency Deidra Meek [facility] 1..840.114 350.1.13.10 4.2.7.2.686 [id number] [facility] 2022-08-21 15:00:00 2022-08-21 15:00:00 Outpatient RUTHIE THACKER [facility] [id number] [facility] 2022-08-06 00:00:00 2022-08-06 00:00:00 [facility] MEDICAL OFFICE BUILDING 1..114 350.1.13.10 4.2.7.2.686 [id number] [facility] 2022-07-03 15:15:00 2022-07-03 15:52:50 Outpatient R NGHIA MENENDEZ [facility] [id number] [facility] 2022-07-03 15:15:00 2022-07-03 15:30:00 Office [facility] MEDICAL OFFICE BUILDING 1.114 350.1.13.10 4.2.7.2.686 [id number] [facility] 2022-07-03 15:15:00 2022-07-03 15:15:00 Outpatient R NGHIA MENENDEZ [facility] [id number] [facility] 2022-07-03 00:00:00 2022-07-03 00:00:00 Patient Secure Msg Doctor Unassigned, Johnson [facility] 1..114 350.1.13.10 4.2.7.2.686 [id number] [facility] 2022-06-28 00:00:00 2022-06-28 00:00:00 Patient Secure Msg Doctor Unassigned, Johnson [facility] ..114 350.1.13.10 4.2.7.2.686 [id number] [facility] 2022-06-26 08:47:07 2022-06-26 23:59:00 Hospital Encounter Layne Weir [facility] 1..114 350.1.13.10 4.2.7.2.686 [id number] [facility] 2022-06-26 08:46:05 2022-06-26 08:46:00 Outpatient R LAYNE WEIR [facility] [id number] [facility] 2022-06-26 08:30:00 2022-06-26 08:46:00 Hospital Encounter [facility] 1.0.114 350.1.13.10 4.2.7.2.686 [id number] [facility] 2022-06-18 00:00:00 2022-06-18 00:00:00 Case Management [facility] 1..114 350.1.13.10 4.2.7.2.686 [id number] [facility] 2022-06-11 00:00:00 2022-06-11 00:00:00 Telephone Ruthie Haney [facility] [place] MEDICAL OFFICE BUILDING 1.114 350.1.13.10 4.2.7.2.686 [id number] [facility] 2022-06-10 11:03:40 2022-06-10 23:59:00 Outpatient R ILANA ISABELLE [facility] [id number] [facility] 2022-06-10 10:00:00 2022-06-10 23:59:00 Hospital Encounter Isabelle Preciado [facility] 1..114 350.1.13.10 4.2.7.2.686 [id number] [facility] 2022-06-06 00:00:00 2022-06-06 00:00:00 Case Management Mikael Shafer [facility] 1..114 350.1.13.10 4.2.7.2.686 [id number] [facility] 2022-06-05 09:46:00 2022-06-05 13:39:00 Emergency X GURU MEZA [facility] ERT [id number] [facility] 2022-06-05 09:46:00 2022-06-05 13:39:00 Emergency Guru Meza [facility] 1.2.840.114 350.1.13.10 4.2.7.2.686 [id number] [facility] 2022-04-05 00:00:00 2022-04-05 00:00:00 Telephone Ruthie Haney [facility] MEDICAL OFFICE BUILDING 1.2840.114 350.1.13.10 4.2.7.2.686 [id number] [facility] 2022-04-02 00:00:00 2022-04-02 00:00:00 Refill Ruthie Haney [facility] MEDICAL OFFICE BUILDING 1.2840.114 350.1.13.10 4.2.7.2.686 [id number] [facility] 2022-03-28 00:00:00 2022-03-28 00:00:00 Orders Only Doctor Unassigned, Johnson [facility] 1.2840.114 350.1.13.10 4.2.7.2.686 [id number] [facility] 2022-03-27 00:00:00 2022-03-27 00:00:00 Telephone Ruthie aHney [facility] [place] MEDICAL OFFICE BUILDING 1.2840.114 350.1.13.10 4.2.7.2.686 [id number] [id number] [facility] 2022-03-14 11:15:00 2022-03-14 11:30:00 [facility] MEDICAL OFFICE BUILDING 1.2.840.114 350.1.13.10 4.2.7.2.686 [id number] [facility] 2022-03-14 11:15:00 2022-03-14 11:15:00 Outpatient R MAMIE BARBOZA [facility] [id number] [facility] 2022-03-14 11:15:00 2022-03-14 11:15:00 Outpatient R MAMIE BARBOZA [facility] [id number] [facility] 2022-03-13 09:00:00 2022-03-13 09:00:00 Outpatient R ROSY FLOWERS [facility] [id number] [facility] 2022-03-13 09:00:00 2022-03-13 09:00:00 Outpatient R ROSY FLOWERS [facility] [id number] [facility] 2022-03-13 00:00:00 2022-03-13 00:00:00 [facility]phone [facility] 1.840.114 350.1.13.10 4.2.7.2.686 [id number] [facility] 2022-03-11 00:00:00 2022-03-11 00:00:00 Orders Only Doctor Unassigned, Johnson [facility] 1.840.114 350.1.13.10 4.2.7.2.686 [id number] [facility] 2022-03-07 00:00:00 2022-03-07 00:00:00 Telephone Chong Bailey [facility] [place] MEDICAL OFFICE BUILDING 1..840.114 350.1.13.10 4.2.7.2.686 [id number] [facility] 2022-03-06 00:00:00 2022-03-06 00:00:00 Telephone [facility] MEDICAL OFFICE BUILDING 1.0.114 350.1.13.10 4.2.7.2.686 [id number] [facility] 2022-03-06 00:00:00 2022-03-06 00:00:00 Telephone [facility]ong [facility] MEDICAL OFFICE BUILDING 1.0.114 350.1.13.10 4.2.7.2.686 [id number] [facility] 2022-03-01 00:00:00 2022-03-01 00:00:00 Telephone Ruthie Haney [facility] MEDICAL OFFICE BUILDING 1..114 350.1.13.10 4.2.7.2.686 [id number] [facility] 2022-02-28 00:00:00 2022-02-28 00:00:00 Telephone Chong Bailey Shani [facility] MEDICAL OFFICE BUILDING 1.114 350.1.13.10 4.2.7.2.686 [id number] [facility] 2022-02-27 00:00:00 2022-02-27 00:00:00 Outpatient R CHONG BAILEY [facility] [id number] [facility] 2022-02-27 00:00:00 2022-02-27 00:00:00 Orders Only Doctor Unassigned, Johnson [facility] 1..114 350.1.13.10 4.2.7.2.686 [id number] [facility] 2022-02-26 00:00:00 2022-02-26 00:00:00 Telephone Chong [facility] MEDICAL OFFICE BUILDING 1..114 350.1.13.10 4.2.7.2.686 [id number] [facility] 2022-02-20 10:27:42 2022-02-20 23:59:00 Outpatient R CHONG BAILEY [facility] [id number] [facility] 2022-02-20 10:27:42 2022-02-20 23:59:00 Hospital Encounter Chong Bailey [facility] 1.840.114 350.1.13.10 4.2.7.2.686 [id number] [facility] 2022-02-20 11:15:00 2022-02-20 11:30:00 Jewelry Sales Representative Visit Pob, Adc Lab Main Chong Bailey [facility] NAL BUILD[facility] 1.84.114 350.1.13.10 4.2.7.2.686 [id number] [facility] 2022-02-20 00:00:00 2022-02-20 00:00:00 Telephone Chong Bailey [facility] MEDICAL OFFICE BUILDING 1.84114 350.1.13.10 4.2.7.2.686 [id number] [facility] 2022-02-20 00:00:00 2022-02-20 00:00:00 Orders Only Doctor Unassigned, Johnson [facility] 1..114 350.1.13.10 4.2.7.2.686 [id number] [facility] 2022-02-18 14:30:00 2022-02-18 14:26:49 Outpatient R CHONG BAILEY [facility] [id number] [facility] 2022-02-18 00:00:00 2022-02-18 00:00:00 Telephone Chong Bailey [facility] MEDICAL OFFICE BUILDING 1.84.114 350.1.13.10 4.2.7.2.686 [id number] [facility] 2022-02-11 00:00:00 2022-02-11 00:00:00 Telephone Ruthie Haeny [facility] MEDICAL OFFICE BUILDING 1.2840.114 350.1.13.10 4.2.7.2.686 [id number] [facility] 2022-02-01 00:00:00 2022-02-01 00:00:00 Telephone Chong Bailey [facility] MEDICAL OFFICE BUILDING 1.0.114 350.1.13.10 4.2.7.2.686 [id number] [facility] 2022-01-31 09:28:33 2022-01-31 23:59:00 Outpatient R LEO CHONG [facility] [id number] [facility] 2022-01-31 09:28:33 2022-01-31 23:59:00 Hospital Encounter Chong Bailey [facility] 1.0.114 350.1.13.10 4.2.7.2.686 [id number] [facility] 2022-01-30 00:00:00 2022-01-30 00:00:00 Orders Only Doctor Unassigned, Johnson [facility] 1.0.114 350.1.13.10 4.2.7.2.686 [id number] [facility] 2022-01-27 21:17:00 2022-01-27 23:49:00 Emergency X SANDRA ANDRADE [facility] ERT [id number] [facility] 2022-01-27 21:17:00 2022-01-27 23:49:00 Emergency Sandra Andrade [facility] 1.0.114 350.1.13.10 4.2.7.2.686 [id number] [facility] 2022-01-24 00:00:00 2022-01-24 00:00:00 Telephone Chong Bailey [facility] MEDICAL OFFICE BUILDING 1.84.114 350.1.13.10 4.2.7.2.686 [id number] [facility] 2022-01-11 00:00:00 2022-01-11 00:00:00 Telephone Chong Bailey [facility] MEDICAL OFFICE BUILDING 1..114 350.1.13.10 4.2.7.2.686 [id number] [facility] 2022-01-10 12:24:00 2022-01-10 13:44:00 Emergency X FERMIN CHAUANNE [facility] ERT [id number] [facility] 2022-01-10 12:24:00 2022-01-10 13:44:00 Emergency Rekha Chau [facility] 1..114 350.1.13.10 4.2.7.2.686 [id number] [facility] 2022-01-10 00:00:00 2022-01-10 00:00:00 Patient Secure Msg Doctor Unassigned, Johnson [facility] 1.114 350.1.13.10 4.2.7.2.686 [id number] [facility] 2022-01-07 14:55:00 2022-01-07 23:59:00 Hospital Encounter Chong Bailey [facility] MEDICAL OFFICE BUILDING 1.84.114 350.1.13.10 4.2.7.2.686 [id number] [facility] 2022-01-07 17:40:00 2022-01-07 18:00:00 Urgent Care Provider, V[facility] Tod Neli [facility] MEDICAL OFFICE BUILDING 1..840.114 350.1.13.10 4.2.7.2.686 [id number] [facility] 2022-01-07 16:00:00 2022-01-07 16:00:00 Office Visit Bailey Chong Shani [facility] MEDICAL OFFICE BUILDING 1.84.114 350.1.13.10 4.2.7.2.686 [id number] [facility] 2022-01-07 16:00:00 2022-01-07 15:12:51 Outpatient R LEO CHONG [facility] [id number] [facility] 2022-01-07 16:00:00 2022-01-07 15:12:51 Outpatient R CHONG BAILEY [facility] [id number] [facility] 2022-01-07 00:00:00 2022-01-07 00:00:00 Telephone Kirti Haneyfelecia Castro [facility] [place] MEDICAL OFFICE BUILDING 1.840.114 350.1.13.10 4.2.7.2.686 [id number] [facility] 2022-01-03 00:00:00 2022-01-03 00:00:00 Outpatient ROSY CARLSON [facility] [id number] [facility] 2021-11-29 14:00:00 2021-11-29 14:00:00 Outpatient R ROSY FLOWERS [facility] [id number] [facility] 2021-11-20 00:00:00 2021-11-20 00:00:00 Telephone MedinaRuthie schaeffer [facility] [place] MEDICAL OFFICE BUILDING 1..840.114 350.1.13.10 4.2.7.2.686 [id number] [facility] 2021-11-12 00:00:00 2021-11-12 00:00:00 Telephone Bailey, Chong Shani [facility] [place] MEDICAL OFFICE BUILDING 1..840.114 350.1.13.10 4.2.7.2.686 [id number] [facility] 2021-11-09 09:00:00 2021-11-09 09:00:00 Outpatient R CHONG BAILEY [facility] [id number] [facility] 2021-11-06 00:00:00 2021-11-06 00:00:[facility] 1..840.114 350.1.13.10 4.2.7.2.686 [id number] 198 [id number] [facility] 2021-11-06 00:00:00 2021-11-06 00:00:00 Refill Doctor Unassigned, Johnson [facility] 1..840.114 350.1.13.10 4.2.7.2.686 [id number] [facility] 2021-11-05 15:54:00 2021-11-05 20:33:00 Emergency X DEIDRA MEEK [facility] ERT [id number] [facility] 2021-11-05 15:54:00 2021-11-05 20:33:00 Emergency [facility] 1.840.114 350.1.13.10 4.2.7.2.686 [id number] [facility] 2021-11-01 00:00:00 2021-11-01 00:00:00 Telephone Tamra Mamie Shanks [facility] 1..840.114 350.1.13.10 4.2.7.2.686 [id number] 198 [id number] [facility] 2021-10-31 14:00:00 2021-10-31 14:00:00 Outpatient R ROSY FLOWERS [facility] [id number] [facility] 2021-10-22 00:00:00 2021-10-22 00:00:00 Refill Rosy Flowers [facility] 1.2.840.114 350.1.13.10 4.2.7.2.686 [id number] [facility] 2021-10-17 00:00:00 2021-10-17 00:00:00 Telephone Rosy Flowers [facility] 1.2.840.114 350.1.13.10 4.2.7.2.686 [id number] [facility] 2021-10-11 00:00:00 2021-10-11 00:00:00 Telephone Mamie Barboza [facility] 1.2.840.114 350.1.13.10 4.2.7.2.686 [id number] [facility] 2021-10-04 10:45:44 2021-10-04 23:59:00 Hospital Encounter Rosy Flowers [facility] 1.2.840.114 350.1.13.10 4.2.7.2.686 [id number] [facility] 2021-10-04 10:30:00 2021-10-04 10:58:26 Outpatient R ROSY FLOWERS [facility] [id number] [facility] 2021-10-04 10:30:00 2021-10-04 10:58:26 Outpatient R ROSY FLOWERS [facility] [id number] [facility] 2021-10-04 10:11:17 2021-10-04 10:58:26 Office Visit Rosy Flowers [facility] 1.2.840.114 350.1.13.10 4.2.7.2.686 [id number] [facility] 2021-10-03 14:00:00 2021-10-03 14:23:38 Outpatient R [facility] [id number] [facility] 2021-10-03 14:00:00 2021-10-03 14:23:38 Outpatient R [facility] [id number] [facility] 2021-10-03 14:00:00 2021-10-03 14:23:38 Outpatient R [facility] [id number] [facility] 2021-10-03 13:57:05 2021-10-03 14:23:38 [facility] 1.2.840.114 350.1.13.10 4.2.7.2.686 [id number] [facility] 2021-10-01 00:00:00 2021-10-01 00:00:00 [facility] 1.2.840.114 350.1.13.10 4.2.7.2.686 [id number] [facility] 2021-09-27 13:30:00 2021-09-27 13:30:00 Outpatient R ROSY FLOWERS [facility] [id number] [facility] 2021-09-27 13:30:00 2021-09-27 13:30:00 Outpatient R ROSY FLOWERS [facility] [id number] [facility] 2021-09-25 10:12:06 2021-09-25 23:59:00 Outpatient R [facility] [id number] [facility] 2021-09-25 10:12:06 2021-09-25 23:59:00 Hospital Encounter Mamie Barboza [facility] 1.0.114 350.1.13.10 4.2.7.2.686 [id number] [facility] [facility]-25 10:12:06 2021-09-25 23:59:00 Outpatient R MAMIE BARBOZA [facility] [id number] [facility] 2021-09-25 00:00:00 2021-09-25 00:00:00 Orders Only Doctor Unassigned, Johnson [facility] 1.20.114 350.1.13.10 4.2.7.2.686 [id number] [id number] [facility] 2021-09-25 00:00:00 2021-09-25 00:00:00 Telephone Ruthie Haney [facility] J[facility]D?[facility] MED[facility] OFFICE BUILDING 1..114 350.1.13.10 4.2.7.2.686 [id number] [facility] 2021-09-19 00:00:00 2021-09-19 00:00:00 [facility] 1..114 350.1.13.10 4.2.7.2.686 [id number] [facility] 2021-09-18 00:00:00 2021-09-18 00:00:00 Patient Secure Msg Doctor Unassigned, Johnson [facility] 1..114 350.1.13.10 4.2.7.2.686 [id number] 019 [id number] [facility] 2021-09-15 00:00:00 2021-09-15 00:00:00 Telephone [facility] Medical Office Building 1..114 350.1.13.10 4.2.7.2.686 [id number] 044 [id number] [facility] 2021-09-13 13:21:54 2021-09-13 13:51:54 Office Visit Barboza [facility]?Susana farias Medical Office Building 1.2.840.114 350.1.13.10 4.2.7.2.686 [id number] [facility] 2021-09-13 13:15:00 2021-09-13 13:49:15 Outpatient R BARBOZA [facility] [id number] [facility] 2021-09-13 13:15:00 2021-09-13 13:49:15 Outpatient R BARBOZA [facility] [id number] [facility] 2021-09-13 13:15:00 2021-09-13 13:49:15 Outpatient R TAMRA [facility] [id number] [facility] 2021-09-13 00:00:00 2021-09-13 00:00:00 Refill Ruthie Haney [facility]?Susana oneil Medical Office Building 1.2.840.114 350.1.13.10 4.2.7.2.686 [id number] [id number] [facility] 2021-09-11 09:59:00 2021-09-11 11:16:00 Emergency Guru Meza [facility] 1..840.114 350.1.13.10 4.2.7.2.686 [id number] 084 [id number] [facility] 2021-09-11 09:59:00 2021-09-11 11:16:00 Emergency X GURU MEZA [facility] ERT [id number] [facility] 2021-09-11 09:59:00 2021-09-11 11:16:00 Emergency X GURU MEZA [facility] ERT [id number] [facility] 2021-09-10 00:00:00 2021-09-10 00:00:00 Patient Secure Msg Doctor Unassigned, Johnson [facility] 1.2.840.114 350.1.13.10 4.2.7.2.686 [id number] [id number] [facility] 2021-09-05 11:55:00 2021-09-05 14:02:00 Emergency MezaGuru [facility] 1.2.84.114 350.1.13.10 4.2.7.2.686 [id number] [id number] [facility] 2021-09-05 09:17:56 2021-09-05 09:32:56 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, Ruthie May [facility] Medical [facility] Building 1..840.114 350..13.10 4.2.7.2.686 [id number] [facility] 2021-09-05 08:00:00 2021-09-05 09:16:46 Outpatient R RUTHIE HANEY [facility] [id number] [facility] 2021-09-05 08:00:00 2021-09-05 09:16:46 Outpatient R RUTHIE HANEY [facility] [id number] [facility] 2021-09-05 08:00:00 2021-09-05 09:16:46 Outpatient R RUTHIE HANEY [facility] ERT [id number] [facility] 2021-09-05 07:55:15 2021-09-05 09:16:46 Office Visit Ruthie Haney [facility] Medical Office Building 1..840.114 350.1.13.10 4.2.7.2.686 [id number] [facility] 2021-09-05 08:00:00 2021-09-05 08:00:00 Outpatient R RUTHIE HANEY [facility] [id number] [facility] 2021-09-05 00:00:00 2021-09-05 00:00:00 Orders Only Doctor Unassigned, Johnson [facility] 1.2.840.114 350.1.13.10 4.2.7.2.686 [id number] [id number] [facility] 2021-09-03 02:02:00 2021-09-03 02:31:00 Emergency LINDA REYES [facility] ERT [id number] [facility] 2021-08-31 11:17:00 2021-08-31 11:30:00 Emergency Guru Meza [facility] 1.2.840.114 350.1.13.10 4.2.7.2.686 [id number] [facility] 2021-08-31 11:17:00 2021-08-31 11:30:00 Emergency X GURU MEZA [facility] ERT [id number] [facility] 2021-08-31 11:17:00 2021-08-31 11:30:00 Emergency X GURU MEZA [facility] ERT [id number] [facility] 2021-08-30 10:17:00 2021-08-30 12:25:00 Emergency Timothy Bailey [facility] 1.2.840.114 350.1.13.10 4.2.7.2.686 [id number] [facility] 2021-08-30 10:17:00 2021-08-30 12:25:00 Emergency X TIMOTHY BAILEY [facility] ERT [id number] [facility] 2021-08-30 10:17:00 2021-08-30 12:25:00 Emergency X TIMOTHY BAILEY [facility] ERT [id number] [facility] 2021-08-26 12:18:00 2021-08-26 12:26:00 Emergency Prosper Sims Sandra J [facility] 1.2.840.114 350.1.13.10 4.2.7.2.686 [id number] [id number] [facility] 2021-08-26 12:18:00 2021-08-26 12:26:00 Emergency X LINDA DEGROOT [facility] ERT [id number] [facility] 2021-08-26 12:18:00 2021-08-26 12:26:00 Emergency X LINDA DEGROOT [facility] ERT [id number] [facility] 2021-08-26 12:18:00 2021-08-26 12:26:00 Emergency X LINDA DEGROOT [facility] ERT [id number] [facility] 2021-08-23 14:09:00 2021-08-23 14:43:00 Emergency Linda Degroot [facility] 1.2.840.114 350.1.13.10 4.2.7.2.686 [id number] [id number] [facility] 2021-08-23 14:09:00 2021-08-23 14:43:00 Emergency X LINDA DEGROOT [facility] ERT [id number] [facility] 2021-08-23 14:09:00 2021-08-23 14:43:00 Emergency X LINDA DEGROOT [facility] ERT [id number] [facility] 2021-08-09 20:23:00 2021-08-09 21:57:00 Emergency TiarathangMeghan [facility] 1.2.840.114 350.1.13.10 4.2.7.2.686 [id number] [id number] [facility] 2021-08-09 16:53:00 2021-08-09 17:40:00 Emergency X [facility] ERT [id number] [facility] 2021-08-09 16:53:00 2021-08-09 17:40:00 Emergency [facility] 1.2.840.114 350.1.13.10 4.2.7.2.686 [id number] [facility] 2021-08-09 16:53:00 2021-08-09 17:40:00 Emergency X [facility] ERT [id number] [facility] 2021-08-05 01:08:00 2021-08-05 04:43:00 Emergency Rekha Chau Rohith [facility] 1.2.840.114 350.1.13.10 4.2.7.2.686 [id number] [facility] 2021-08-05 01:08:00 2021-08-05 04:43:00 Emergency X REGIS CORTEZ [facility] ERT [id number] [facility] 2021-06-24 12:31:00 2021-06-24 14:00:00 Emergency Ivan Janet Sindy [facility] 1.2.840.114 350.1.13.10 4.2.7.2.686 [id number] [facility] 2021-06-24 12:31:00 2021-06-24 14:00:00 Emergency X IVANJanet [facility] ERT [id number] [facility] 2021-06-24 12:31:00 2021-06-24 14:00:00 Emergency X IVANJanet [facility] ERT [id number] [facility] 2021-06-19 11:32:00 2021-06-19 14:24:00 Emergency Chay Weeks S [facility] 1.2.840.114 350.1.13.10 4.2.7.2.686 [id number] [id number] [facility] 2021-06-19 11:32:00 2021-06-19 14:24:00 Emergency X CHAY WEESK [facility] ERT [id number] [facility] 2021-06-02 12:03:00 2021-06-02 12:24:00 Emergency Barry Gomez [facility] 1.2.840.114 350.1.13.10 4.2.7.2.686 [id number] [id number] [facility] 2021-06-02 12:03:00 2021-06-02 12:24:00 Emergency X BARRY GOMEZ [facility] ERT [id number] [facility] 2021-06-02 12:03:00 2021-06-02 12:24:00 Emergency X BARRY GOMEZ [facility] ERT [id number] [facility] 2021-05-22 09:22:00 2021-05-22 10:24:00 Emergency Brian Gray [facility] 1.2.840.114 350.1.13.10 4.2.7.2.686 [id number] [id number] 2021-05-22 09:22:00 2021-05-22 10:24:00 Emergency Brian Gray [facility] 1.2.840.114 350.1.13.10 4.2.7.2.686 [id number] 084 [id number] [facility] 2021-05-22 09:22:00 2021-05-22 10:24:00 Emergency X BRIAN GRAY [facility] ERT [id number] [facility] 2021-05-22 09:22:00 2021-05-22 10:24:00 Emergency X BRIAN GRAY [facility] ERT [id number] [facility] 2021-04-05 11:37:00 2021-04-05 13:25:00 Emergency Meghan Harvey [facility] 1.2.840.114 350.1.13.10 4.2.7.2.686 [id number] 084 [id number] 2021-04-05 11:37:00 2021-04-05 13:25:00 Emergency Meghan Harvey [facility] 1.2.840.114 350.1.13.10 4.2.7.2.686 [id number] [id number] [facility] 2021-04-05 11:37:00 2021-04-05 13:25:00 Emergency X MEGHAN HARVEY [facility] ERT [id number] [facility] 2021-04-05 11:37:00 2021-04-05 13:25:00 Emergency X MEGHAN HARVEY [facility] ERT [id number] [facility] 2021-03-16 08:30:00 2021-03-16 10:05:00 Emergency Linda Degroot Vidal [facility] 1.2.840.114 350.1.13.10 4.2.7.2.686 [id number] 2021-03-16 08:30:00 2021-03-16 10:05:00 Emergency Clay Linda Vidal [facility] 1.2.840.114 350.1.13.10 4.2.7.2.686 [id number] 084 [id number] [facility] 2021-03-16 00:00:00 2021-03-16 00:00:00 Orders Only Doctor Unassigned, Johnson [facility] 1.2.840.114 350.1.13.10 4.2.7.2.686 [id number] [id number] 2021-03-16 00:00:00 2021-03-16 00:00:00 Orders Only Doctor Unassigned, Johnson [facility] 1.2.840.114 350.1.13.10 4.2.7.2.686 [id number] [id number] [facility] 2021-03-02 00:00:00 2021-03-02 00:00:00 Telephone Chong Bailey [facility] 1.2.840.114 350.1.13.10 4.2.7.2.686 [id number] 198 [id number] 2021-03-02 00:00:00 2021-03-02 00:00:00 Telephone Chong Bailey [facility] 1.2.840.114 350.1.13.10 4.2.7.2.686 [id number] [facility] 2021-02-17 17:20:00 2021-02-17 18:16:00 Emergency Linda Degroot [facility] 1.2.840.114 350.1.13.10 4.2.7.2.686 [id number] [id number] 2021-02-17 17:20:00 2021-02-17 18:16:00 Emergency Linda Degroot [facility] 1.2.840.114 350.1.13.10 4.2.7.2.686 [id number] [id number] [facility] 2021-02-17 17:20:00 2021-02-17 18:16:00 Emergency X LINDA DEGROOT [facility] ERT [id number] [facility] 2021-02-17 17:20:00 2021-02-17 18:16:00 Emergency X LINDA DEGROOT [facility] ERT [id number] [facility] 2021-02-12 11:02:00 2021-02-12 11:46:00 Emergency WeeksChay [facility] 1.2.840.114 350.1.13.10 4.2.7.2.686 [id number] 2021-02-12 11:02:00 2021-02-12 11:46:00 Emergency X CHAY WEEKS [facility] ERT [id number] [facility] 2021-02-12 11:02:00 2021-02-12 11:46:00 Emergency X CHAY WEEKS [facility] ERT [id number] [facility] 2021-02-12 11:02:00 2021-02-12 11:46:00 Emergency Chay Weeks [facility] 1.2.840.114 350.1.13.10 4.2.7.2.686 [id number] 084 [id number] [facility] 2020-09-28 00:00:00 2020-09-28 00:00:00 Pete Barboza [facility] zacarias [place] 1.2.840.114 350.1.13.10 4.2.7.2.686 [id number] 198 [id number] 2020-09-28 00:00:00 2020-09-28 00:00:00 Pete Barboza [facility]acarias [place] 1.2.840.114 350.1.13.10 4.2.7.2.686 [id number] 198 [id number] [facility] 2020-07-18 11:27:00 2020-07-18 12:25:00 Emergency Brian Gray [facility] 1.2.840.114 350.1.13.10 4.2.7.2.686 [id number] 084 [id number] 2020-07-18 11:27:00 2020-07-18 12:25:00 Emergency Brian Gray [facility] 1.2.840.114 350.1.13.10 4.2.7.2.686 [id number] 084 [id number] [facility] 2020-07-14 10:35:00 2020-07-14 11:01:00 Emergency Brian Gray [facility] 1.2.840.114 350.1.13.10 4.2.7.2.686 [id number] 2020-07-14 10:35:00 2020-07-14 11:01:00 Emergency X BRIAN GRAY [facility] [id number] [facility] 2020-07-14 10:35:00 2020-07-14 11:01:00 Emergency Brian Gray [facility] 1.2.840.114 350.1.13.10 4.2.7.2.686 [id number] 084 [id number] [facility] 2020-07-06 00:00:00 2020-07-06 00:00:00 [facility] 1.2.840.114 350.1.13.10 4.2.7.2.686 [id number] [id number] 2020-07-06 00:00:00 2020-07-06 00:00:00 [facility] (Out[facility] 1.2.840.114 350.1.13.10 4.2.7.2.686 [id number] [id number] [facility] 2020-07-03 14:13:00 2020-07-03 17:14:00 Emergency Janet Love [facility] 1.2.840.114 350.1.13.10 4.2.7.2.686 [id number] 084 [id number] 2020-07-03 14:13:00 2020-07-03 17:14:00 Emergency Janet Love [facility] 1.2.840.114 350.1.13.10 4.2.7.2.686 [id number] 084 [id number] [facility] 2020-06-18 00:00:00 2020-06-18 00:00:00 Orders Only Doctor Unassigned, Johnson [facility] 1.2.840.114 350.1.13.10 4.2.7.2.686 [id number] [id number] 2020-06-18 00:00:00 2020-06-18 00:00:00 Orders Only Doctor Unassigned, Johnson [facility] 1.2.840.114 350.1.13.10 4.2.7.2.686 [id number] [id number] [facility] 2020-06-11 07:22:31 2020-06-11 07:47:00 Emergency Brian Gray Donnell [facility] 1.2.840.114 350.1.13.10 4.2.7.2.686 [id number] 084 [id number] 2020-06-11 07:22:31 2020-06-11 07:47:00 Emergency Brian Gray Donnell [facility] 1.2.840.114 350.1.13.10 4.2.7.2.686 [id number] 084 [id number] [facility] 2020-06-11 00:00:00 2020-06-11 00:00:00 Orders Only Doctor Unassigned, Johnson [facility] 1.2.840.114 350.1.13.10 4.2.7.2.686 [id number] [id number] 2020-06-11 00:00:00 2020-06-11 00:00:00 Orders Only Doctor Unassigned, Johnson [facility] 1.2.840.114 350.1.13.10 4.2.7.2.686 [id number] [id number] [facility] 2020-06-03 15:21:35 2020-06-03 18:43:00 Emergency Chay Weeks [facility] 1.2.840.114 350.1.13.10 4.2.7.2.686 [id number] 084 [id number] 2020-06-03 15:21:35 2020-06-03 18:43:00 Emergency Chay Weeks [facility] 1.2.840.114 350.1.13.10 4.2.7.2.686 [id number] 084 [id number] [facility] 2020-06-03 00:00:00 2020-06-03 00:00:00 Orders Only Doctor Unassigned, Johnson [facility] 1.2.840.114 350.1.13.10 4.2.7.2.686 [id number] [id number] 2020-06-03 00:00:00 2020-06-03 00:00:00 Orders Only Doctor Unassigned, Johnson [facility] 1.2.840.114 350.1.13.10 4.2.7.2.686 [id number] [id number] [facility] 2020-05-31 00:00:00 2020-05-31 00:00:00 Telephone Tamra [facility]arias [place] 1.2.840.114 350.1.13.10 4.2.7.2.686 [id number] 198 [id number] 2020-05-31 00:00:00 2020-05-31 00:00:00 Telephone Tamra [facility] [place] 1.2.840.114 350.1.13.10 4.2.7.2.686 [id number] [facility] 2020-05-19 00:00:00 2020-05-19 00:00:00 Refill Tamra [facility] [place] 1.2.840.114 350.1.13.10 4.2.7.2.686 [id number] [facility] 2020-05-18 13:35:31 2020-05-18 23:59:00 Outpatient R HCONG BAILEY [facility] [id number] [facility] 2020-05-18 13:35:00 2020-05-18 23:59:00 Hospital Encounter Chong Bailey [facility] 1.2.840.114 350.1.13.10 4.2.7.2.686 [id number] [facility] 2020-05-18 15:22:03 2020-05-18 16:00:04 [facility] [place] 1.2.840.114 350.1.13.10 4.2.7.2.686 [id number] 198 [id number] 2020-05-18 15:22:03 2020-05-18 16:00:04 Office Visit Mamie Barboza Craig L [facility] zacarias [place] 1.2.840.114 350.1.13.10 4.2.7.2.686 [id number] [facility] 2020-05-18 00:00:00 2020-05-18 00:00:00 Telephone Leo Chong Shani [facility] [place] 1.2.840.114 350.1.13.10 4.2.7.2.686 [id number] 198 [id number] [facility] 2020-05-18 00:00:00 2020-05-18 00:00:00 Mamie Smith Farhat [facility]arias [place] 1.2.840.114 350.1.13.10 4.2.7.2.686 [id number] 198 [id number] [facility] 2020-05-13 09:27:28 2020-05-13 10:04:00 Emergency Linda Degroot [facility] 1.2.840.114 350.1.13.10 4.2.7.2.686 [id number] 084 [id number] [facility] 2020-05-13 09:16:00 2020-05-13 09:16:00 Emergency X [facility] ERT [id number] [facility] 2020-05-08 00:00:00 2020-05-08 00:00:00 Orders Only Doctor Unassigned, Johnson [facility] 1.2.840.114 350.1.13.10 4.2.7.2.686 [id number] [id number] [facility] 2020-05-07 07:13:15 2020-05-07 07:48:00 Emergency Brian Gray [facility] 1.2.840.114 350.1.13.10 4.2.7.2.686 [id number] 084 [id number] [facility] 2020-05-07 07:13:15 2020-05-07 07:13:15 Emergency X BRIAN GRAY [facility] ERT [id number] [facility] 2020-04-09 19:10:48 2020-04-09 20:54:00 Emergency Jacqueline Luu [facility] 1.2.840.114 350.1.13.10 4.2.7.2.686 [id number] 084 [id number] [facility] 2020-04-09 19:04:00 2020-04-09 19:04:00 Emergency X [facility] ERT [id number] [facility] 2019-08-12 19:51:41 2019-08-12 20:52:00 Emergency Bruce Robins [facility] 1.2.840.114 350.1.13.10 4.2.7.2.686 [id number] 084 [id number] [facility] 2019-07-21 00:00:00 2019-07-21 00:00:00 Transition of Care [address] 1.2.840.114 350.1.13.10 4.2.7.2.686 [id number] [facility] 2019-07-17 11:29:01 2019-07-20 16:22:00 Hospital Encounter Meghan Harvey, Roman Mueller [facility] 1.2.840.114 350.1.13.10 4.2.7.2.686 [id number] [id number] [facility] 2019-06-29 09:20:31 2019-06-29 10:41:00 Emergency Linda Degroot [facility] 1.2.840.114 350.1.13.10 4.2.7.2.686 [id number] 084 [id number] [facility] 2019-06-29 00:00:00 2019-06-29 00:00:00 Orders Only Doctor Unassigned, Johnson [facility] 1.2.840.114 350.1.13.10 4.2.7.2.686 [id number] 009 [id number] [facility] Results Test Description Test Time Test Comments Results Result Co mments Source [facility] URINALYSIS W SPECIFIC [id number] 18:29:00* Test Item Value Reference Range Interpretation [...] 3267) Lab Interpretation (test cod e = 74663-1) Abnormal [facility] URINALYSIS W SPECIFIC [id number] 18:29:00* Test Item Value Reference Range Interpretation [...] 3267) Lab Interpretation (test cod e = 56737-8) Abnormal [facility] [id number] 15:31:00* Test Item Value Reference Range Interpretation Comme nts POCT PREG (test code = 1605) Negative On board controls acceptable with C Line (test code = 3574) Yes POCT PREG LOT # (test code = 3575) POCT PREG TEST DATE ( test code = 3576) [facility] [id number] 15:31:00* Test Item Value Reference Range Interpretation Comme nts POCT PREG (test code = 1605) Negative On board controls acceptable with C Line (test code = 3574) Yes POCT PREG LOT # (test code = 3575) POCT PREG TEST DATE ( test code = 3576) [facility] [id number] 15:31:00* Test Item Value Reference Range Interpretation Comme nts POCT PREG (test code = 1605) Negative On board controls acceptable with C Line (test code = 3574) Yes POCT PREG LOT # (test code = 3575) POCT PREG TEST DATE ( test code = 3576) [facility] URINALYSIS W SPECIFIC [id number] 19:29:00* Test Item Value Reference Range Interpretation [...] clear Lab Interpretation (test cod e = 89238-1) Abnormal [facility] [id number] 19:28:00* Test Item Value Reference Range Interpretation Comme nts POCT PREG (test code = 1605) Negative On board controls acceptable with C Line (test code = 3574) Yes POCT PREG LOT # (test code = 3575) POCT PREG TEST DATE ( test code = 3576) Lab Interpretation (test cod e = 14163-5) Normal [facility] URINALYSIS W SPECIFIC [id number] 16:43:00* Test Item Value Reference Range Interpretation [...] clear Lab Interpretation (test cod e = 55198-1) Abnormal [facility] URINALYSIS W SPECIFIC [id number] 16:43:00* Test Item Value Reference Range Interpretation [...] clear Lab Interpretation (test cod e = 14322-1) [facility] [id number] 16:43:00* Test Item Value Reference Range Interpretation [...] clear Lab Interpretation (test cod e = 16938-4) [facility]normal [facility] [id number] 16:02:39* Test Item Value Reference Range Interpretation Comments TROPONIN I (test code = 1740310353) 0.014 ng/mL See_Comment [Automated message] The system [...] of biotin. Lab Interpretation (test code = 56170-9) Normal [id number] 15:37:17* Test Item Value Reference Range Interpretation Comme nts LIPASE (test code = 9747356753) 80 U/L 0-220 Lab Interpretation (test cod e = 37609-7) [facility] [id number] 15:37:17* Test Item Value Reference Range Interpretation Comme nts NT-proBNP (test code = 4942587902) 145 pg/mL See_Comment H [Automated message] The system which generated this result transmitted reference range: <=125. The reference range was not used to interpret this result as normal/abnormal. DUNCAN (test code = DUNCAN) Biotin has been reported to cause a negative bias, interpret results relative to patient's use of biotin. Lab Interpretation (test code = 51648-4) [facility]TH[facility] [id number] 15:37:17 * Test Item Value Reference Range Interpretation Comme nts TSH (test code = 3745275090) See_Comment Biotin has been reported to cause a negative bias, interpret results relative to patient's use of biotin. [Automated message] The system which generated this result transmitted reference range: 0.45 - 4.70 mIU/L. The reference range was not used to interpret this result as normal/abnormal. Lab Interpretation (test code = 31590-7) Normal [facility]20[facility] 15:37:17* Test Item Value Reference Range Interpretation Comme nts MAGNESIUM (test code = 9856787781) 1.6 mg/dL 1.7-2.4 L Lab Interpretation (test cod e = 62307-9) Abnormal [facility] METABOLIC PANEL (40173)2022-09-01 15:37:16* Test Item Value Reference Range Interpretation Comme nts NA (test code = 5476751711) 139 mmol/L 135-145 K (test code = 0488584828) 4.0 mmol/L 3.5-5 CL (test code = 7190044487) 100 mmol/L 98-108 CO2 TOTAL (test code = 5676900972) 27 mmol/L 23-31 AGAP (test code = 2708887844) 2-16 BUN (test code = 7535544585) 17 mg/dL 7-23 GLUCOSE (test code = 5544719636) 154 mg/dL 70-110 H CREATININE (test code = 8475903878) 0.62 mg/dL 0.5-1.04 TOTAL BILI (test code = 1889214500) 0.9 mg/dL 0.1-1.1 CALCIUM (test code = 8557827415) 9.7 mg/dL 8.6-10.6 T PROTEIN (test code = 5726386005) 7.3 g/dL 6.3-8.2 ALBUMIN (test code = 9737517651) 4.6 g/dL 3.5-5 ALK PHOS (test code = 1780246171) 88 U/L 34-122 ALTv (test code = 1742-6) 23 U/L 5-35 AST(SGOT) (test code = 0790166948) 27 U/L 13-40 eGFR (test code = 3736707858) mL/min/1.73m2 DUNCAN (test code = DUNCAN) Association [...] imaging tests). Lab Interpretation (test code = 81935-9) Abnormal [facility] HospitalETHANOL2022-10-09 15:26:13 ALCOHOL<10mg/dL09/01/2022 10:26 AM [facility]<10 Ugauiehw61-651 Toxic>100 Depression of CV RN>400 Fatalities ReportedUT Health [facility] [place] [facility] HospitalD-HKQAS2473-30-33 14:51:34* Test Item Value Reference Range Interpretation Comments D-DIMER (test code = 6817518701) See_Comment H [Automated message] The system which [...] a diagnosis. Lab Interpretation (test code = 94222-6) Abnormal [facility] HospitalCBC WITH BKCB9722-25-23 14:40:57* Test Item Value Reference Range Interpretation Comme nts WBC (test code = 6690-2) See_Comment [Automated [employer] ge] The system which generated this result transmitted reference range: 4.30 - 11.10 10*3/?L. The reference range was not used to interpret this result as normal/abnormal. RBC (test code = 789-8) See_Comment [Automated [employer] ge] The system which generated this result [...] 34.6 g/dL 31.6-35.1 RDW-SD (test code = 79524-0) 49.3 fL 39-49.9 RDW-CV (test code = 788-0) 14.8 % 12-15.5 PLT (test code = 777-3) See_Comment [Automated [employer] ge] The system which generated this result transmitted reference range: 166 - 358 10*3/?L. The reference range was not used to interpret this result as normal/abnormal. MPV (test code = 72601-2) 9.5 fL 9.5-12.9 NRBC/100 WBC (test code = 6044190174) See_Comment [Automated [employer] ssage] The system which generated this result transmitted reference range: 0.0 - 10.0 /100 WBCs. The reference range was not used to interpret this result as normal/abnormal. NRBC x10^3 (test code = 3177568841) See_Comment [Automated [employer] ge] The system which generated this result transmitted reference range: 10*3/?L. The reference range was not used to interpret this result as normal/abnormal. GRAN MAT (NEUT) % (test code = 770-8) 58.0 % IMM GRAN % (test code = 9253918229) 0.20 % LYMPH % (test code = 736-9) 35.7 % MONO % (test code = 5905-5) 5.6 % EOS % (test code = 713-8) 0.2 % BASO % (test code = 706-2) 0.3 % GRAN MAT x10^3(ANC) (test code = 9385532500) 5.10 10*3/uL 1.88-7.09 IMM GRAN x10^3 (test code = 0483967288) 0-0.06 LYMPH x10^3 (test code = 731-0) 3.14 10*3/uL 1.32-3.29 MONO x10^3 (test code = 742-7) 0.49 10*3/uL 0.33-0.92 EOS x10^3 (test code = 711-2) 0.03-0.39 L BASO x10^3 (test code = 704-7) 0.03 10*3/uL 0.01-0.07 Lab Interpretation (test code = 08917-9) Abnormal [facility] HospitalHCG, Serum Qual (LAB)2021-08-10 09:02:00* Test Item Value Reference Range Interpretation Comme nts HCG, Serum Qual (LAB) (test code = HCGQ) Negative Negative Coronavirus PCR, COVID19 Zpvdy7179-76-69 09:02:00* Test Item Value Reference Range Interpretation Comme nts Coronavirus PCR, COVID19 Rapid (test code = SARSCOV2) For use under Emergency Use Authorization (EUA) only. Coronavirus PCR, COVID19 Rapid (test code = QHXOISW93.1) Reference Range: Negative SARS-CoV-2 PCR Result: (test code = SARS-CoV-2 PCR Result:) Negative by PCR COVID-19 Status: AsymptomaticComplete Blood Count Auto Stlp3007-28-57 09:02:00* Test Item Value Reference Range Interpretation [...] Pct (test code = NRBCP) 0 % Comprehensive Metabolic Kiiby0603-19-11 09:02:00* Test Item Value Reference Range Interpretation [...] = ALP) 80 U/L 46-116 N Ethanol Oqxyu2638-21-27 09:02:00* Test Item Value Reference Range Interpretation Comme nts Ethanol (test code = ETOH) < 3 mg/dL CT abdomen pelvis [facility] [address] [place] [address] Patient Name: Masha Kilgore Medical Record#: [id number] Address: [facility] City/State/Zip: [place] [address]: Christy Partida DO Insurance: [place] Medicaid /Age/Sex: 1960/60/F Self Pay Admit/Reg Date: 08/10/[address]: Christy Partida DO Location: [facility]/ PCP: Pcp-Md CHRISTOPHER Vallejo Date of Service: 08/10/21 Order (s):CT abdomen pelvis wo con CPT Code: 61350 Report Number: [id number] Reason for Exam: Flank Pain EX AMINATION: CT abdomen pelvis wo con CLINICAL INDICATION: Flank Pain TECHNIQUE: Thin section axial noncontrast contiguous images were obtained through the abdomen and pelvis followed by coronal and sagittal multiplanar reformations. One or more of the following dose reduction techniques were used: Automated exposure control, adjustment of the mA and/or kV according to patient size, and/or iterative reconstruction. COMPARISON: None FINDINGS: Characterization of the solid organs is limited by lackof contrast media. Lower Chest: The visualized lung bases are clear. The heart is normal in size. No pericardial effusion is identified. Liver: The liver is [...] MD 08/10/21 1236 TD/TT: 08/10/21 1236 Tech: [facility] cc: KAREN; RASAM02* Christy Partida DO; Pcp-Md CHRISTOPHER Vallejo Notes Date/Time Note Provider Source 2024-02-11 09:56:30 mE8WQyJL+kG9UkowApVFdScNGn+YAhNYnG3 PncKWvinT6wRi7otR2987NvjEZ9Rv6404-9 02-10T09:56:30 Outpatient Medication DetailDisp Refills Start End DAWHYDROcodone-acetaminophen 10-325 mg tablet 120 tablet 0 01/14/2024 -- --Sig: Take 1 tablet by mouth every 6 (six) hours as needed for Pain (scale 4-6). 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 TING ClassYes [1] C-II High Abuse Potential [2]Associated DiagnosesChronic bilateral low back pain without sciatica - PrimaryOrder Associated ProvidersName NPIOrdering Provider Nghia Menendez MD [[id number]] [id number] Provider Nghia Menendez MD [[id number]] [id number] [facility] [place] [place] [facility] CenterSoci[facility] & [address]CE[address]A DRRecent VisitsDate Type Provider Dept01/14/24 Office Visit Nghia Menendez MD Ang[facility]12/15/23 Office Visit Nghia Menendez MD [facility]11/12/23 Office Visit Nghia Menendez MD [facility]10/02/23 Office Visit Nghia Menendez MD [facility]09/04/23 Office Visit Nghia Menendez MD Ang[facility]Db [facility] Med08/06/23 Office Visit Nghia Menendez MD Ang[facility]07/09/23 Office Visit Nghia Menendez MD Ang[facility] Med06/09/23 Office Visit Nghia Menendez MD Ang[facility] Med03/26/23 Office Visit Nghia Menendez MD Ang[facility] Med02/24/23 Office Visit Nghia Menendez MD Ang[facility] MedShowing recent visits within past 540 days with a meds authorizing provider and meeting all other requirementsFuture AppointmentsDate Type Provider Dept03/15/24 Appointment Nghia Menendez MD Ang[facility] MedShowing future appointments within next 150 days with a meds authorizing provider and meeting all other requirements 45357-9Humwhnyfg encounter CtyyRI2602-55-69W72:56:39Telephone encounter NoteTXT1.2.840.823713.1.13.104.2.7. 2.670547|[id number] for patient kmnl83638-2WlsoZSKMOBSTMUCXfunscaeb C-CDA narrative text[address] XyfpZxyaekgurBllmmwutuJNML952200731 1VRGPAPMHBSBKUESYZECJUB5359-63-62H6 9:56:391.2.840.696183.1.72.3.15|1.2 .840.861205.1.13.104.2.7.2.727879_2 [id number] [facility] 2024-02-11 09:55:45 ZFqJ4KYKMhZlLz6UQeAWjQRhxOmQ4+c3UyT tBUuQ+9Xc7zMjYdADcRmOxTxOOFWK3538-5 02-10T09:55:45 Notified patient we received her refill request to allow time for to review it. She verbalized understanding.Jenny Dunn LVN 02/11/2024 9:56 AM 51014-1Wgxzrxrmc encounter PljrBC8421-32-76S01:56:39Telephone encounter NoteTXT1.2.840.324924.1.13.104.2.7. 2.496798|8004740282JKNdszbozht for patient fhtl41469-3BebsWOPGDDGGIRGHyyzwxkaa C-CDA narrative textUT[address] [id number] 3NRLKCTEZRRNSIHQYKYAANN3860-39-88P5 9:56:391.2.840.746007.1.72.3.15|1.2 .840.931797.1.13.104.2.7.2.727879_2 [id number] [facility] 2024-02-11 09:53:28 w+b8dhKk2/uCD+wYOtZoBjBW58/oCWyv9Ac 12FGCR8R1iuwKwFOSGcAzlOYqQPn20638-3 09:53:28 Copied from [facility] #[id number]. 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 57955-8Uhpsbxzva encounter GjbeTQ9081-31-80U63:54:07Telephone encounter NoteTXT1.2.840.409476.1.13.104.2.7. 2.727361|[id number] for patient prvw12046-0PzkdYTFYHPUCLBQJtgwlluhy C-CDA narrative xfgd091968456Ollufrc J RainesUT[address] [id number] 1ZVHKTKUPEMTGRQAJSHNDAW4186-20-96P0 9:54:071.2.840.280927.1.72.3.15|1.2 .840.052442.1.13.104.2.7.2.727879_2 [id number] Precious Arora [facility] 2024-02-11 09:33:50 /KjaFXnqU0o6qo0jJ3uoV08HA6xpLmcogo7 4eyx8evGbxIEyfRD+UpfA4reRLvzb3796-9 09:33:50 Outpatient Medication DetailDisp Refills Start End DAWHYDROcodone-acetaminophen 10-325 mg tablet 120 tablet 0 01/14/2024 -- --Sig: Take 1 tablet by mouth every 6 (six) hours as needed for Pain (scale 4-6). Indications: chronic painSent to pharmacy as: hydrocodone 10 mg-acetaminophen 325 mg tablet (NORCO)Class: eRXEarliest Fill Date: 01/14/2024oute: OralOrder: [id number]/Time Signed: 01/14/2024 10:14E-Prescribing Status: Receipt confirmed by pharmacy (01/14/2024 10:14 AM SHOVEL MECHANIC)Controlled? TING ClassYefarhat [1] C-II High Abuse Potential [2]Associated DiagnosesChronic bilateral low back pain without sciatica - PrimaryOrder Associated ProvidersName NPIOrdering Provider Nghia Menendez MD [[id number]] [id number] Provider Nghia Menendez MD [[id number]] [id number] [facility] [place] [place] [facility] CenterSoci[facility] & [address] QUISPERecthang VisitsDate Type Provider Dept01/14/24 Office Visit Nghia Menendez MD Ang[facility] Med12/15/23 Office Visit Nghia Menendez MD Ang[facility]11/12/23 Office Visit Nghia Menendez MD Ang[facility] Med10/02/23 Office Visit Nghia Menendez MD [facility] Med09/04/23 Office Visit Nghia Menendez MD Ang[facility]08/06/23 Office Visit Nghia Menendez MD Ang[facility] Med07/09/23 Office Visit Nghia Menendez MD [facility] Med06/09/23 Office Visit Nghia Menendez MD Ang[facility] Med03/26/23 Office Visit Nghia Menendez MD Ang[facility] Med02/24/23 Office Visit Nghia Menendez MD Ang[facility] MedShowing recent visits within past 540 days with a meds authorizing provider and meeting all other requirementsFuture AppointmentsDate Type Provider Dept03/15/24 Appointment Nghia Menendez MD Ang[facility] MedShowing future appointments within next 150 days with a meds authorizing provider and meeting all other requirements 45340-9Accnahgig encounter KmioPE8485-87-11G91:34:08Telephone encounter NoteTXT1.2.840.772549.1.13.104.2.7. 2.391189|[id number] for patient lwtd59135-9CnbeSAMYMGTECLOTtuupghfg C-CDA narrative text[address] NapfLnyzdgpugEnodrylbxOPLV868263331 9MUHLNTSQHCXAWNHWEPUZJG5183-46-31X3 9:34:081.2.840.745012.1.72.3.15|1.2 .840.519588.1.13.104.2.7.2.727879_2 [id number] [facility] 2024-02-11 09:26:09 HjbPKlXZXc6cfO6fo7IkgS7GKMkyLWxnMI6 IA9x9hNK6MXc7grKe+8ollU8ypb7r2854-1 09:26:09 Pt requesting refillHYDROcodone-acetaminophen 10-325 mg tabletHEB [facility] [address] QuispePhone: Oai: [phone] signed by Jerome Cuevas at 02/11/2024 9:26 AM TPE65731-6Lhvzrvtul encounter TkdjJH4911-90-07K11:26:40Telephone encounter NoteTXT1.2.840.664692.1.13.104.2.7. 2.352958|[id number] for patient uova65660-8RzsxSWXQNVSVYIIUagpdmgbp C-CDA narrative bbmk75305446Ajgwmu argenis[id number] 1JOZYEZFRUPFNNIGHCCXKIG4025-62-64S5 9:26:401.2.840.101453.1.72.3.15|1.2 .840.228910.1.13.104.2.7.2.727879_2 [id number] Jeromejutsin ColoradoMason [facility] 2023-06-24 12:14:22 Bik/LsX0lulV99Xm1wi4qtSR77+4uEpzpEV d8tkrix207XBuSl1OC2ZLnMFKPYMX6971-3 06-24T12:14:22 [place] [employer] Insurance denied generic symbicort inhaler. Re submitted as brand name medically necessary in attempt for coverage. Will check back with pharmacy this afternoon. 84553-9Qqyywnnig encounter KamqVL7033-61-44S61:15:29Telephone encounter NoteTXT1.2.840.197657.1.13.104.2.7. 2.039288|7390715044QDHcuqpsxdm for patient znqf21656-7MptcMMPGKYPXOP[id number] 8SPNTJRSSRTIFLNZTHYKYFA1438-98-87D8 2:15:291.2.840.402089.1.72.3.15|1.2 .840.832972.1.13.104.2.7.2.727879_1 [id number] [facility] 2023-06-23 06:12:19 Ds8v1YVNesFU0zKqqdtPkZJClbOoEC8bIJy Ydp38swJuCAvfRZLrqbHNd7IDsTUH7654-6 7-31T06:12:19 That's good. 49978-8Ayfsyfpfg encounter ZzloYT1604-04-88Z12:12:32Telephone encounter NoteTXT1.2.840.806443.1.13.104.2.7. 2.999831|5591495729QWVnvwhofkh for patient uuum57195-8KnypYWMVCGVCEM[address] JxhmCrrdbqqpmFiczeyrjnGBVF139453157 2BZHLYBFBAPRQFOJTJIQCTS3395-55-02U5 6:12:321.2.840.895604.1.72.3.15|1.2 .840.108505.1.13.104.2.7.2.727879_1 [id number] [facility] 2023-06-19 14:15:58 i2sxKcHRNhQo7LEl9EFmQFz4TTAFoW61/qU 4rL6A5KF3Os5yV6jwg5QAQFmU9yAX2014-1 06-19T14:15:58 Spoke to the daughter and she wants a provider referral and any other referrals for any other services that her mother can be assisted with. Told her to call her moms insurance to see who is in network with them and I also gave her Department of Aging Disability Services number as well. Tayla Shanks MA 06/19/2023 2:20 PM 30221-4Lhpevwmjg encounter OhcuVR9607-50-96I04:21:24Telephone encounter NoteTXT1.2.840.901087.1.13.104.2.7. 2.313859|3686220085GRShorpkjeb for patient odlt73593-0OalxTT748044415Wfswqbm K [address]TXTX[address] 4ZFUOGGAYRIVYRFTMCJBNWW9234-62-93T7 4:21:241.2.840.327694.1.72.3.15|1.2 .840.869198.1.13.104.2.7.2.727879_1 [id number] Tayla Gonzales [facility] 2023-06-16 10:26:33 j5iyjkSrw7z62n6Arpqppf7aMV3sYlMTvVC yfUaQbtMH6n3aZE9gQEwnPKDXSKGF5709-3 06-16T10:26:33 She is looking for some one to help with cooking, cleaning, etc. I don't think that service is available here. 37275-5Psfccrpgh encounter UcabWI1653-01-07W48:28:06Telephone encounter NoteTXT1.2.840.990990.1.13.104.2.7. 2.814967|6838497102FGSzgnqrhnc for patient wadi37875-8PqciRGRTOIAAMQ[id number] 9SZPDCBDOBKRYPHWHSUVOZK2609-00-17F2 0:28:061.2.840.708739.1.72.3.15|1.2 .840.201883.1.13.104.2.7.2.727879_1 [id number] [facility] 2023-06-16 10:14:22 sJfWkA/rXd8Nv9PzMJV483WQie8qYf0qDL8 OqxX7sg8OKlTmtjpw8bBBxR6QBhMI6704-0 06-16T10:14:22 Please review and advise. 85179-0Kcgiipuap encounter YklfGZ8382-56-03B49:14:32Telephone encounter NoteTXT1.2.840.059432.1.13.104.2.7. 2.165202|0156437063AMBddcevwef for patient yerl51106-5RsjuFJ399978271Xntinf [place] RNUT[address] WjonIxdchlrcuZgjhqkwxmGJOY789985981 1QFRIGPIIWJBVFBZXKIOVRE6255-86-44V5 0:14:321.2.840.978647.1.72.3.15|1.2 .840.806262.1.13.104.2.7.2.727879_1 [id number] Elizabeth Archibald RN [facility] 2023-06-16 09:55:28 AbT0nFVJs+Y2XaSC3UdA1JQ8sAa4p2MBlDU mgcefuXndv2Lkrp3jJI695Qa996M87037-3 06-16T09:55:28 Pt is wanting to discuss home health says she can barely stand to wash her own dishes, say she discussed this previously.Call pt on temp #[id number] signed by Lulu Canas at 06/16/2023 9:57 AM EZH79512-7Oxywxiqgo encounter JowqZW3395-24-90S75:57:27Telephone encounter NoteTXT1.2.840.940990.1.13.104.2.7. 2.218472|2853776265ZXYzfrwbutr for patient pdtx33201-7IcasXB450525759Lfcwr [id number] 0CANPLNYIECAOWIJLGAWBRM9627-81-70O5 9:57:271.2.840.443269.1.72.3.15|1.2 .840.598228.1.13.104.2.7.2.727879_1 [id number] Lulu Canas [facility] 2023-06-10 16:49:35 PRAG/p+5Iu3v9pO9g02bK1suZQi9PTkfyIG o670PsM4Mbba27CRS3sape0aR+/Tj8962-7 6:49:35 Received PA from kacy.MOJICA:BFUJYDWNElectronical ly signed by Valentina Nguyen at 06/10/2023 4:52 PM GGZ70618-1Pszpgllje encounter UkzsUE5988-32-55O00:52:39Telephone encounter NoteTXT1.2.840.905313.1.13.104.2.7. 2.196211|2723008084TTIeyakodxa for patient vneg965178605Gzqufmczf [id number] 1WTOBEZGVBCQHBDVWPMWBCQ8339-04-24Z9 6:52:391.2.840.712271.1.72.3.15|1.2 .840.479476.1.13.104.2.7.2.727879_1 [id number] Valentina Nguyen [facility] 2021-08-10 12:04:00 72gmAhsfE0aPrxvVCF5/RhbA+//FvQ6J3fQ IVFcnj7qigkzkQOHWQX+mJxsrE20R2315-0 9-17T12:04:00 [facility] [address] [place] [address] Emergency Department Document Signed Patient: Masha Kilgore Medical Record#: [id number] : 1960 Acct:[id number] Age/Sex: 60 / F Admit/Reg Date: 08/10/21 Loc: [facility]MEDPSY Room: Report Number: [id number] Attending Dr: Christy Partida DO Arrival - [...] (Auto) 76.8 H, Lymph % (Auto) 16.9, Chaves % (Auto) 5.5, Eos % (Auto) 0.1, Baso % (Auto) 0.3, Neut # (Auto) 7.3, Lymph # (Auto) 1.60, Chaves # (Auto) 0.52, Eos # (Auto) 0.01, [...] Pcp-Md Vallejo MD [Primary Care Provider] - ([facility] [address] [place] [address], [facility] [address] [place] [address] Telephone #[phone] [place] [address] ) Print Language: Tajik Dictated By: Christy Partida DO Signed By: Christy Partida DO 08/10/21 1351 DD/ 1204 TD/TT: 08/10/21 1204 Intermediate Teacher: NUVIA cc: KAREN* Pcp-Md MD JOSE F Valleoj Physician UttgikqzvpzyeZKOND10QioiurcBarber EdmondsonIrztPyetdiaDpssC3866-75-59D16:04:00 PFLACOvailable for patient maaiNVAAPAsUKHVq0083-57-33I01:51:47 [facility]
--- NOTE | 2024-03-13 01:03 | EDPHYS ---
Physician Documentation [facility] Name: Afua Cunningham Age: 63 yrs Sex: Female : 1960 Arrival Date: 03/13/2024 Time: 00:50 Bed 17 Private MD: ED Physician HPI: 03/13 01:03 This 63 yrs old Black Female presents to ER via EMS with complaints of Knee Pain. ec2 01:03 Patient arrives today for evaluation of chronic left knee pain. Patient with history of ec2 arthritis, has not taken any medications for pain. Patient reports no falls injuries or trauma, has been ambulatory. Attention, states that she has not taken her hypertensive medications, with concern that she is hypertensive. Denies chest pain, shortness of breath, abdominal pain or other concerns.. Historical: - Allergies: 00:58 No Known Allergies; km8 - Home Meds: 00:58 Effexor XR 150 mg Oral cp24 1 cap once daily [Active]; losartan 100 mg Oral tab 1 tab km8 once daily [Active]; - PMHx: 00:58 Anxiety; Asthma; Back pain; Depression; fx in middle of back; GERD; Hypertension; UTI; km8 - PSHx: 00:58 tubal ligation; km8 - Immunization history:: Adult Immunizations unknown. - Infectious Disease History:: Denies. - Social history:: Smoking status: Patient reports the use of cigarette tobacco products, smokes one pack cigarettes per day. Patient/guardian denies using alcohol, street drugs. ROS: 01:03 Constitutional: as per hpi ec2 Exam: 01:03 Constitutional: GEN: NAD Head: atraumatic Eyes: EOMI Ears: External ears are ec2 normal. CV: regular rate LUNGS: no respiratory distress ABD: non-distended SKIN: no evidence of rashes MSK: no evidence of trauma, left lower extremity with no evidence of trauma, no ecchymosis noted, no deformities, knee with good range of motion, no knee effusion appreciated. NEURO: moves all extremities equally Vital Signs: 00:55 BP 155 / 87; Pulse 87; Resp 16; Temp 98.4(TE); Pulse Ox 98% on R/A; Weight 79.38 kg km8 (R); Height 5 ft. 1 in. (R); Pain 10/10; 00:55 Body Mass Index 33.07 (79.38 kg, 154.94 cm) km8 00:55 Pain Scale: Adult km8 Farrah Coma Score: 00:58 Eye Response: spontaneous(4). Motor Response: obeys commands(6). Verbal Response: km8 oriented(5). Total: 15. MDM: 00:56 Patient medically screened. ec2 01:03 Data reviewed: vital signs. ED course: Patient arrives today for evaluation of knee ec2 pain as well as elevated blood pressure. Examination remarkable for MSK findings as above. Suspect patient's chronic arthritis causing the patient's pain. Will give the patient Tylenol to help with the symptoms. Doubt process such as gout or septic joint given the good range of motion and lack of toxicity. Interesting patient's elevated blood pressures, patient has not been taking her medications, otherwise is asymptomatic. Do not feel will be beneficial to obtain lab work at this time given lack of complaints. Patient discharged home. Return precautions given.. Administered Medications: 01:16 Drug: Lidoderm Topical Patch 5 % (700 mg/patch) 1 patches Topical once; leave on for 12 km8 hours; cover most painful area; may cut into smaller pieces {Note: left knee.} Route: Topical; Site: affected area; 01:19 Follow up: Response: Medication administered at discharge. 8 01:17 Drug: Acetaminophen PO 1000 mg PO once Route: PO; km8 01:20 Follow up: Response: Medication administered at discharge. 8 01:17 Drug: Ketorolac IM 30 mg IM once Route: IM; Site: left deltoid; km8 01:20 Follow up: Response: Medication administered at discharge. 8 Disposition Summary: 03/13/24 01:02 Discharge Ordered Condition: Stable ec2 Diagnosis - Pain in left knee ec2 Followup: ec2 - With: Private Physician - When: - Reason: Re-evaluation by your physician Discharge Instructions: - Discharge Summary Sheet ec2 - Arthritis, [id number] ec2 Forms: - Medication Reconciliation Form ec2 - Thank You Letter ec2 - Antibiotic Education ec2 - Prescription Opioid Use ec2 - Patient Portal Instructions ec2 - Leadership Thank You Letter ec2 Signatures: Bruce Banda MD MD ec2 Alejandra Sotelo RN RN 8
--- NOTE | 2024-03-13 01:03 | ER ---
Nurse's Notes [facility] Name: Afua Cunningham Age: 63 yrs Sex: Female : 1960 Arrival Date: 03/13/2024 Time: 00:50 Bed 17 Private MD: Diagnosis: Pain in left knee Presentation: 03/13 00:55 Chief complaint: Parent and/or Guardian states: HTN since yesterday morning and left km8 knee pain starting getting worse a couple of hours ago; pt denies CP, SOB, or ASHRAF EMS states: toned out for HTN and left knee pain. Coronavirus screen: Client denies travel out of the [place] in the last 14 days. Ebola Screen: No symptoms or risks identified at this time. Initial Sepsis Screen: Does the patient meet any 2 criteria? No. Patient's initial sepsis screen is negative. Does the patient have a suspected source of infection? No. Patient's initial sepsis screen is negative. Risk Assessment: Do you want to hurt yourself or someone else? Patient reports no desire to harm self or others. Onset of symptoms was March 12, 2024. 00:55 Method Of Arrival: EMS: [facility] km8 00:55 Acuity: ASHA 3 km8 Triage Assessment: 00:58 General: Appears in no apparent distress. comfortable, Behavior is calm, cooperative. km8 Pain: Complains of pain in left knee Pain currently is 10 out of 10 on a pain scale. EENT: No signs and/or symptoms were reported regarding the EENT system. Neuro: Level of Consciousness is awake, alert, obeys commands, Oriented to person, place, time, situation. Cardiovascular: Denies chest pain, shortness of breath, Patient's skin is warm and dry. Respiratory: Airway is patent Respiratory effort is even, unlabored, Respiratory pattern is regular, symmetrical. GI: No signs and/or symptoms were reported involving the gastrointestinal system. : No signs and/or symptoms were reported regarding the genitourinary system. Derm: No signs and/or symptoms reported regarding the dermatologic system. Skin is intact, is healthy with good turgor, Skin is dry, Skin is pink, warm \T\ dry. normal, Skin temperature is warm. Musculoskeletal: Reports pain in left knee. Historical: - Allergies: 00:58 No Known Allergies; km8 - Home Meds: 00:58 Effexor XR 150 mg Oral cp24 1 cap once daily [Active]; losartan 100 mg Oral tab 1 tab km8 once daily [Active]; - PMHx: 00:58 Anxiety; Asthma; Back pain; Depression; fx in middle of back; GERD; Hypertension; UTI; km8 - PSHx: 00:58 tubal ligation; km8 - Immunization history:: Adult Immunizations unknown. - Infectious Disease History:: Denies. - Social history:: Smoking status: Patient reports the use of cigarette tobacco products, smokes one pack cigarettes per day. Patient/guardian denies using alcohol, street drugs. Screenin:58 [facility] ED Fall Risk Assessment (Adult) History of falling in the last 3 months, km8 including since admission No falls in past 3 months (0 pts) Confusion or Disorientation No (0 pts) Intoxicated or Sedated No (0 pts) Impaired Gait Yes (1 pt) Mobility Assist Device Used No (0 pt) Altered Elimination No (0 pt) Score/Fall Risk Level 0 - 2 = Low Risk Oriented to surroundings, Maintained a safe environment, Educated pt \T\ family on fall prevention, incl call for assistance when getting out of bed, Assessed \T\ reinforced patient's understanding of fall precautions. Abuse screen: Denies threats or abuse. Denies injuries from another. Nutritional screening: No deficits noted. Tuberculosis screening: No symptoms or risk factors identified. Assessment: 00:58 Reassessment: see triage assessment. km 01:17 Reassessment:. 8 Vital Signs: 00:55 BP 155 / 87; Pulse 87; Resp 16; Temp 98.4(TE); Pulse Ox 98% on R/A; Weight 79.38 kg km8 (R); Height 5 ft. 1 in. (R); Pain 10/10; 00:55 Body Mass Index 33.07 (79.38 kg, 154.94 cm) km8 00:55 Pain Scale: Adult km8 Farrah Coma Score: 00:58 Eye Response: spontaneous(4). Motor Response: obeys commands(6). Verbal Response: km8 oriented(5). Total: 15. ED Course: 00:51 Patient arrived in ED. km8 00:55 Bruce Banda MD is Attending Physician. ec2 00:55 Alejandra Sotelo, RN is Primary Nurse. km8 00:58 Triage completed. km8 00:58 Arm band placed on right wrist. km8 00:58 Patient has correct armband on for positive identification. Bed in low position. Call km8 light in reach. Side rails up X 1. Pulse ox on. NIBP on. Lights dimmed. 01:18 Provided Education on: d/c teaching. km8 01:18 No provider procedures requiring assistance completed. Patient did not have IV access km8 during this emergency room visit. Administered Medications: 01:16 Drug: Lidoderm Topical Patch 5 % (700 mg/patch) 1 patches Topical once; leave on for 12 km8 hours; cover most painful area; may cut into smaller pieces {Note: left knee.} Route: Topical; Site: affected area; 01:19 Follow up: Response: Medication administered at discharge. km8 01:17 Drug: Acetaminophen PO 1000 mg PO once Route: PO; km8 01:20 Follow up: Response: Medication administered at discharge. km8 01:17 Drug: Ketorolac IM 30 mg IM once Route: IM; Site: left deltoid; km8 01:20 Follow up: Response: Medication administered at discharge. km8 Medication: 01:18 VIS not applicable for this client. km8 Outcome: 01:02 Discharge ordered by . ec2 01:18 Discharged to home ambulatory, km8 01:18 Condition: good 01:18 Discharge instructions given to patient, Instructed on discharge instructions, follow up and referral plans. Demonstrated understanding of instructions, follow-up care, 01:20 Patient left the ED. km8 Signatures: Bruce Banda MD MD 2 Alejandra Sotelo, RN RN km8
[2024-03-13] MEDS ORDERED: ACETAMINOPHEN 500 MG TAB ONE (01:09)
[2024-03-13] MEDS ORDERED: KETOROLAC 30 MG/ML INJ ONE (01:09)
[2024-03-13] MEDS ORDERED: LIDOCAINE 4% PATCH ONE (01:09)
[2024-03-13 01:51] VITALS: BP 155/87; TEMP 98.4; O2SAT 98
== END 2024-03-13 01:20 | disposition home or self-care (01) ==
LOC: ER 00:50
DX: M25.562 Pain in left knee (principal); F17.210 Nicotine dependence, cigarettes, uncomplicated
CPT/HCPCS: 96372; 99284; J2001

== ENCOUNTER 2024-05-29 16:09 | Emergency (ER) | payer OTHER ==
--- OUTSIDE RECORDS SUMMARY | 2024-05-29 16:23 | XMS REPORT | Continuity of Care Document ---
Author Name Unknown Address [address] [facility] [address] [place] [address] [facility]connect Address [address] [facility] [address] [place] [address] Care Team Providers Care Behavior Therapist Name Role Phone Pcp-None Primary Care Physician Unavailab MACKENZIE Hooper Attending Clinician Unavailable DAYTON CALDERON Attending Clinician Unavailable ELLIE DELUCA Attending Clinician Unavailable NGHIA MENENDEZ Attending Clinician Unavailable JEANMARIE GARCIA Attending Clinician Unavailable Nghia Menendez MD Attending Clinician [phone] Jeanmarie Garcia MD Attending Clinician [phone] Lab, Ang - Db Attending Clinician Unavailable GURU MEZA Attending Clinician Unavailable Guru Meza DO Attending Clinician + [phone] Doctor Unassigned, [place] Attending Clinician U navailable CHAY WEEKS S Attending Clinician Unavailable Desi PACHarshya S Attending Clinician [phone] MIRIAM VERGARA Attending Clinician Unavailable ALTON REYES Attending Clinician Unavailable ALTON REYES Attending Clinician Unavailable Mackenzie Beckwith MD Attending Clinician [phone] YARI HORNE Attending Clinician Unavaila Alton Henderson DO Attending Clinician [phone] JULI TURNER Attending Clinician UnaRAYNE Dorsey Attending Clinician Unavailable Ellie Deluca MD Attending Clinician [phone] MAMIE BARBOZA Attending Clinician Unavailable Kiera Short Attending Clinician [phone] 2, [facility] Attending Clinician Unavailable Heather Saavedra LMSW Attending Clinician [phone] Prosper Graff Attending Clinician [phone] Unknown, Attending Attending Clinician Unavailab PROSPER Lynn Attending Clinician Unavailable DERECK JOHNSON Attending Clinician Unavailable DERECK JOHNSON Attending Clinician Unavailable SONIA PICKARD Attending Clinician Unavaila Sonia Kent Attending Clinician + [phone] Mamie Cabrales Attending Clinician [phone] CHONG BAILEY Attending Clinician UnavailChong Spicer MD Attending Clinician [phone] SANDRA ANDRADE Attending Clinician Unavaila Sandra Perez Attending Clinician [phone] MEAGHAN JACOBO Attending Clinician Unavailable DEIDRA MEEK Attending Clinician Unavailable Deidra Meek NP Attending Clinician [phone] RUTHIE HANEY Attending Clinician Unavailable Layne Weir MD Attending Clinician [phone] LAYNE WEIR Attending Clinician Unavailable Ruthie Davis Attending Clinician [phone] ISABELLE PRECIADO Attending Clinician Unavailable Millie MCDOWELL, Isabelle Attending Clinician [phone] [facility] Attending Clinician Unavail bonita Shafer MD, Mikael Rivero Attending Clinician [phone] [facility] Attending Clinician Unavaila prachi Pob, [facility] Attending Clinician UnavailREKHA [place] Attending Clinician Unavailable Isac MCDOWELL, Rekha Attending Clinician [phone] Provider, [facility] Attending Clinician Unavailable Neli Baron MD Attending Clinician [phone] Kristie WHITE, Rosy [facility] Attending Clinician + [phone] LINDA DEGROOT Attending Clinician Unavailab Timothy Leonard Attending Clinician [phone] TIMOTHY BAILEY Attending Clinician Unavailable Linda Degroot DO Attending Clinician [phone] Christy Partida Attending Clinician Unavailable Meghan Tsang Attending Clinician [phone] Regis Cortez MD Attending Clinician +[phone] REGIS CORTEZ Attending Clinician Unavailable Janet Tavera Attending Clinician [phone] Janet LOVE Attending Clinician Unavailable Barry Manuel Attending Clinician +[phone] BARRY GOMEZ Attending Clinician Unavailable Brian Gray MD Attending Clinician + BRIAN GRAY Attending Clinician Unavailable MEGHAN HARVEY Attending Clinician Unavailable Ary FIGUEROA, Johnna Tenorio Attending Clinician Unavailab Jacqueline Alvarez Attending Clinician + [phone] Bruce Loco Attending Clinician + [phone] Jessica FIGUEROA, Jeannie Maloney Attending Clinician [phone] Kali Caban MD Attending Clinician Roman Perez Attending Clinician GURU MEZA Admitting Clinician Unavailable SANDRA ANDRADE Admitting Clinician Unavaila DEIDRA Calvin Admitting Clinician Unavailable LAYNE WEIR Admitting Clinician Unavailable CHONG BAILEY Admitting Clinician UnavailMAMIE Patel Admitting Clinician Unavailable REKHA CHAU Admitting Clinician Unavailable CHAY WEEKS Admitting Clinician Unavailable MEGHAN HARVEY Admitting Clinician Unavailable Kali Caban MD Admitting Clinician Payers Payer Name Policy Type Policy Number Effective Date Expirati on Date Source CHARITY/INDRAP MEDICARE ADVANTAGE [id number] 2012 00:00:00 [facility] MEDICAID [id number] 2016 00:00:00 [place] [id number] 2024 00:00:00 [facility] [id number] 2023 00:00:00 2023 00:00:00 Problems Condition Name Condition Details Condition Category Status Onset Date Resolution Date Last Treatment Date Treating Clinician Comments Source Palpitatio ns Palpitatio ns Disease Active 05-11 00:00: 00 [facility] ODOM (dyspnea on exertion) ODOM (dyspnea on exertion) Disease Active 05-11 00:00: 00 [facility] Cigarette smoker Cigarette smoker Disease Active 05-11 00:00: 00 [facility] Anxiety Anxiety Disease Active 4- 00:00: 00 [facility] Depression , unspecifie d depression type Depression , unspecifie d depression type Disease Active 08-06 00:00: 00 [facility] Chronic bilateral low back pain without sciatica Chronic bilateral low back pain without sciatica Disease Active 2021-11 1- 00:00: 00 [facility] Cardiac murmur Cardiac murmur Disease Active 2020-11 0- 00:00: 00 [facility] Anemia, unspecifie d type Anemia, unspecifie d type Disease Active 2020-11 0-13 00:00: 00 [facility] Chronic GERD Chronic GERD Disease Active 2020-11 0 00:00: 00 [facility] Moderate persistent asthma without complicati on Moderate persistent asthma without complicati on Disease Active 2020-11 0-13 00:00: 00 [facility] Hypertensi on, essential Hypertensi on, essential Disease Active 2020-11 0 00:00: 00 [facility] Drug-seeki ng behavior Drug-seeki ng behavior Disease Active 2020-11 008 00:00: 00 [facility] Altered mental status Altered mental status Disease Active 07-17 00:00: 00 [facility] Obesity (BMI 30-39.9) Obesity (BMI 30-39.9) Disease Active 05-31 00:00: 00 [facility] Hypertensi ve urgency Hypertensi ve urgency Disease Active 05-31 00:00: 00 [facility] Allergies, Adverse Reactions, Alerts Allergy Name Allergy Type Status Severity Reaction(s) Onset Date Inactive Date Treating Clinician Comments Source Unable to Assess DA Active U 08-10 00:00: 00 [facility] No Known Drug Allergie s DA Active U 08-10 00:00: 00 [facility] NO KNOWN ALLERGIE S Drug Class Active [facility] Social History Social Habit Start Date Stop Date Quantity Comments Source History SDOH Alcohol Binge [facility] History SDOH Alcohol Comment [facility] History of tobacco use Cigarette Smoker [facility] Gender identity [facility] Alcoholic beverage intake 2024-04-28 00:00:00 2024-04-28 00:00:00 Ex-drinker (finding) [facility] Cigarettes smoked current (pack per day) - Reported 2024-04-12 00:00:00 2024-04-12 00:00:00 [facility] Cigarette pack-years 2024-04-12 00:00:00 2024-04-12 00:00:00 [facility] Tobacco use and exposure 2024-04-12 00:00:00 2024-04-12 00:00:00 Smokeless tobacco non-user [facility] Alcohol intake 2024-03-18 00:00:00 2024-03-18 00:00:00 Ex-drinker (finding) [facility] History of Social function 2024-01-14 00:00:00 2024-01-14 00:00:00 [facility] Exposure to SARS-CoV-2 (event) 2023-04-07 00:00:00 2023-04-17 09:48:00 Not sure [facility] History SDOH Alcohol Frequency 2019-07-17 00:00:00 2019-07-17 00:00:00 5 [facility] History SDOH Alcohol Std Drinks 2019-07-17 00:00:00 2019-07-17 00:00:00 3 [facility] Education 2019-05-31 00:00:00 2019-05-31 00:00:00 7 [facility] History SDOH Financial 2019-05-31 00:00:00 2019-05-31 00:00:00 1 [facility] History SDOH Transport Med 2019-05-31 00:00:00 2019-05-31 00:00:00 1 [facility] History SDOH Transport Non-Med 2019-05-31 00:00:00 2019-05-31 00:00:00 1 [facility] Sex assigned at 1960 00:00:00 1960 00:00:00 [facility] Smoking Status Start Date Stop Date Source Smokes tobacco daily 2024-04-12 00:00:00 [facility] Medications Ordered Medication Name Filled Medication Name Start Date Stop Date Current Medication? Ordering Clinician Indication Dosage Frequency Signature (SIG) Comments Components Source HYDROcodone -acetaminop hen 7.5-325 mg per tablet 05-13 00:00: 00 Yes [id number] 1{tbl} Take 1 tablet by mouth every 6 (six) hours as needed for Pain. Indication s: chronic pain [facility] clonazePAM (KLONOPIN) 1 mg tablet 04-14 00:00: 00 Yes [id number] 1mg Take 1 tablet by mouth in the morning and 1 tablet in the evening. [facility] HYDROcodone -acetaminop hen 7.5-325 mg per tablet 04-14 00:00: 00 05-13 00:00 :00 No [id number] 1{tbl} Take 1 tablet by mouth every 6 (six) hours as needed for Pain for up to 30 days. Indication s: chronic pain [facility] traZODone 50 mg tablet 04-12 00:00: 00 Yes [id number] 25mg Take 0.5 tablets by mouth at bedtime. [facility] amLODIPine (NORVASC) 10 mg tablet 04-12 00:00: 00 Yes [id number] 10mg Take 1 tablet by mouth in the morning. [facility] HYDROcodone -acetaminop hen 10-325 mg tablet 04-12 00:00: 00 04-14 00:00 :00 No [id number] 1{tbl} Take 1 tablet by mouth every 6 (six) hours as needed for Pain (scale 4-6). Indication s: chronic pain [facility] clonazePAM 2 mg tablet 04-12 00:00: 00 04-14 00:00 :00 No [id number] TAKE ONE (1) TABLET(S) BY MOUTH EVERY MORNING AND EVENING. [facility] ketorolac (TORADOL) injection 15 mg 04-08 19:00: 00 04-08 18:50 :00 No 15mg 15 mg, Intramuscu lar, ONCE NOW, 1 dose, On Jania 04/08/24 at 1400, Routine [facility] atorvastati n 20 mg tablet 04-06 00:00: 00 Yes [id number] 20mg Take 1 tablet by mouth in the morning. [facility] losartan 100 mg tablet 03-22 00:00: 00 Yes [id number] 100mg Take 1 tablet by mouth in the morning. [facility] albuterol 90 mcg/actuati on inhaler 03-18 00:00: 00 Yes [id number] INHALE 2 PUFFS BY MOUTH EVERY 4 HOURS NEEDED FOR WHEEZING [facility] lactulose 10 gram/15 mL solution 03-18 00:00: 00 Yes [id number] TAKE 15 ML BY MOUTH EVERY DAY NEEDED FOR CONSTIPATI ON [facility] potassium chloride 10 mEq CR tablet 03-15 00:00: 00 Yes [id number] 10meq Take 1 tablet by mouth in the morning. [facility] clonazePAM 2 mg tablet 03-15 00:00: 00 04-12 00:00 :00 No [id number] TAKE ONE (1) TABLET(S) BY MOUTH EVERY MORNING AND EVENING. [facility] HYDROcodone -acetaminop hen 10-325 mg tablet 03-15 00:00: 00 04-12 00:00 :00 No [id number] 1{tbl} Take 1 tablet by mouth every 6 (six) hours as needed for Pain (scale 4-6). Indication s: chronic pain [facility] HYDROcodone -acetaminop hen 10-325 mg tablet 02-10 00:00: 00 03-15 00:00 :00 No [id number] 1{tbl} Take 1 tablet by mouth every 6 (six) hours as needed for Pain (scale 4-6). Indication s: chronic pain [facility] venlafaxine 75 mg tablet 01-14 00:00: 00 Yes [id number] 75mg Take 1 tablet by mouth in the morning and 1 tablet in the evening. [facility] pantoprazol e 20 mg EC tablet 01-14 00:00: 00 Yes [id number] 20mg Take 1 tablet by mouth in the morning. [facility] traZODone 50 mg tablet 01-14 00:00: 00 04-12 00:00 :00 No [id number] 25mg Take 0.5 tablets by mouth at bedtime. [facility] HYDROcodone -acetaminop hen 10-325 mg tablet 01-14 00:00: 00 02-10 00:00 :00 No [id number] 1{tbl} Take 1 tablet by mouth every 6 (six) hours as needed for Pain (scale 4-6). Indication s: chronic pain [facility] lactulose 10 gram/15 mL solution 12-15 00:00: 00 03-18 00:00 :00 No [id number] TAKE 15 ML BY MOUTH EVERY DAY NEEDED FOR CONSTIPATI ON [facility] HYDROcodone -acetaminop hen 10-325 mg tablet 12-15 00:00: 00 01-14 00:00 :00 No [id number] 1{tbl} Take 1 tablet by mouth every 6 (six) hours as needed for Pain (scale 4-6). Indication s: chronic pain [facility] hydroCHLORO thiazide 25 mg tablet 2022-11 00:00: 00 Yes [id number] 25mg Take 1 tablet by mouth in the morning. [facility] amLODIPine (NORVASC) 10 mg tablet 2022-11 00:00: 00 04-12 00:00 :00 No [id number] 10mg Take 1 tablet by mouth in the morning. [facility] atorvastati n 20 mg tablet 2022-11 00:00: 00 04-06 00:00 :00 No [id number] 20mg Take 1 tablet by mouth in the morning. [facility] HYDROcodone -acetaminop hen 10-325 mg tablet 2022-11 00:00: 00 12-15 00:00 :00 No [id number] 1{tbl} Take 1 tablet by mouth every 6 (six) hours as needed for Pain (scale 4-6). Indication s: chronic pain [facility] HYDROcodone -acetaminop hen 10-325 mg tablet 2022-11 00:00: 00 11-12 00:00 :00 No [id number] 1{tbl} Take 1 tablet by mouth every 6 (six) hours as needed for Pain (scale 4-6). Indication s: chronic pain [facility] HYDROcodone -acetaminop hen 10-325 mg tablet 2022-11 00:00: 00 10-10 00:00 :00 No [id number] 1{tbl} Take 1 tablet by mouth every 6 (six) hours as needed for Pain (scale 4-6). Indication s: chronic pain [facility] budesonide- formoteroL (SYMBICORT) 160-4.5 mcg/actuati on inhaler 2022-11 00:00: 00 Yes [id number] 2{puff} Inhale 2 Puffs in the morning and 2 Puffs in the evening. [facility] albuterol 90 mcg/actuati on inhaler 2022-11 00:00: 00 03-18 00:00 :00 No [id number] INHALE 2 PUFFS BY MOUTH EVERY 4 HOURS NEEDED FOR WHEEZING [facility] clonazePAM 2 mg tablet 2022-11 00:00: 00 03-15 00:00 :00 No [id number] 2mg Take 1 tablet by mouth every morning and evening. [facility] hydroCHLORO thiazide 25 mg tablet 2022-11 00:00: 00 11-12 00:00 :00 No [id number] 25mg Take 1 tablet by mouth in the morning. [facility] atorvastati n 20 mg tablet 2022-11 00:00: 00 11-12 00:00 :00 No [id number] 20mg Take 1 tablet by mouth in the morning. [facility] amLODIPine (NORVASC) 10 mg tablet 2022-11 00:00: 00 11-12 00:00 :00 No [id number] 10mg Take 1 tablet by mouth in the morning. [facility] LACTULOSE 10 gram/15 mL solution 2022-11 0-19 00:00: 00 12-15 00:00 :00 No [id number] TAKE 15 ML BY MOUTH EVERY DAY NEEDED FOR CONSTIPATI ON [facility] HYDROcodone -acetaminop hen 10-325 mg tablet 2022-11 0-18 00:00: 00 10-09 00:00 :00 No [id number] 1{tbl} Take 1 tablet by mouth every 6 (six) hours as needed for Pain (scale 4-6). Indication s: chronic pain [facility] hydroCHLORO thiazide 25 mg tablet 2022-11 0- 00:00: 00 10-02 00:00 :00 No [id number] 25mg Take 1 tablet by mouth in the morning. [facility] HYDROcodone -acetaminop hen 10-325 mg tablet 2022-11 0 00:00: 00 09-10 00:00 :00 No [id number] 1{tbl} Take 1 tablet by mouth every 6 (six) hours as needed for Pain (scale 4-6). Indication s: chronic pain [facility] CLONAZEPAM 2 mg tablet 08-18 00:00: 00 10-02 00:00 :00 No [id number] 2mg TAKE 1 TABLET BY MOUTH IN THE MORNING AND IN THE EVENING [facility] atorvastati n 20 mg tablet 08-11 00:00: 00 10-02 00:00 :00 No [id number] 20mg Take 1 tablet by mouth in the morning. [facility] azithromyci n 250 mg tablet 08-06 00:00: 00 Yes [id number] 250mg Take 1 tablet by mouth in the morning. Take 500 mg day 1, then 250 mg days 2 to 5. [facility] venlafaxine 75 mg tablet 08-06 00:00: 00 01-14 00:00 :00 No [id number] 75mg Take 1 tablet by mouth in the morning and 1 tablet in the evening. [facility] HYDROcodone -acetaminop hen 10-325 mg tablet 08-06 00:00: 00 09-04 00:00 :00 No [id number] 1{tbl} Take 1 tablet by mouth every 6 (six) hours as needed for Pain (scale 4-6). Indication s: chronic pain [facility] HYDROcodone -acetaminop hen 10-325 mg tablet 8-16 00:00: 00 08-06 00:00 :00 No [id number] 1{tbl} Take 1 tablet by mouth every 6 (six) hours as needed for Pain (scale 4-6). Indication s: chronic pain [facility] SYMBICORT 160-4.5 mcg/actuati on inhaler 06-24 00:00: 00 10-02 00:00 :00 No [id number] 2{puff} Inhale 2 Puffs in the morning and 2 Puffs in the evening. [facility] budesonide- formoteroL (SYMBICORT) 160-4.5 mcg/actuati on inhaler 06-20 00:00: 00 06-24 00:00 :00 No [id number] 2{puff} Inhale 2 Puffs in the morning and 2 Puffs in the evening. [facility] losartan 100 mg tablet 06-09 00:00: 00 03-20 00:00 :00 No [id number] 100mg Take 1 tablet by mouth in the morning. [facility] pantoprazol e 20 mg EC tablet 06-09 00:00: 00 01-14 00:00 :00 No [id number] 20mg Take 1 tablet by mouth in the morning. [facility] albuterol 90 mcg/actuati on inhaler 06-09 00:00: 00 10-02 00:00 :00 No [id number] INHALE 2 PUFFS BY MOUTH EVERY 4 HOURS NEEDED FOR WHEEZING [facility] lactulose 10 gram/15 mL solution 06-09 00:00: 00 09-11 00:00 :00 No [id number] TAKE 15 ML BY MOUTH EVERY DAY NEEDED FOR CONSTIPATI ON [facility] hydroCHLORO thiazide 25 mg tablet 06-09 00:00: 00 09-08 00:00 :00 No [id number] 25mg Take 1 tablet by mouth in the morning. [facility] venlafaxine 75 mg tablet 06-09 00:00: 00 08-06 00:00 :00 No [id number] 75mg Take 1 tablet by mouth in the morning and 1 tablet in the evening. [facility] HYDROcodone -acetaminop hen 10-325 mg tablet 06-09 00:00: 00 07-09 00:00 :00 No [id number] 1{tbl} Take 1 tablet by mouth every 6 (six) hours as needed for Pain (scale 4-6). Indication s: chronic pain [facility] CLONAZEPAM 2 mg tablet 05-28 00:00: 00 08-18 00:00 :00 No [id number] NEED ESCRIPT TAKE ONE TABLET BY MOUTH TWICE DAILY @ 9AM & 5PM [facility] triamcinolo ne acetonide (KENALOG) injection 40 mg 05-22 16:15: 00 05-22 15:05 :00 No [id number] 40mg [facility] fluconazole (DIFLUCAN) 150 mg tablet 04-19 00:00: 00 Yes [id number] Take one tablet; wait 72 hours and take 2nd tablet; wait 72 hours and take 3rd tablet. [facility] cefdinir 300 mg capsule 04-15 00:00: 00 04-26 04:59 :00 No [id number] 600mg Take 2 capsules by mouth in the morning for 10 days. [facility] dexAMETHaso ne (DECADRON) tablet 8 mg 04-10 03:15: 00 04-10 02:36 :00 No 8mg 8 mg, Oral, ONCE NOW, 1 dose, On Fri04/09/23 at 2215, Routine [facility] meloxicam 7.5 mg tablet 04-08 00:00: 00 Yes [id number] 7.5mg Take 1 tablet by mouth in the morning. [facility] HYDROcodone -acetaminop hen 10-325 mg tablet 03-26 00:00: 00 06-09 00:00 :00 No [id number] 1{tbl} Take 1 tablet by mouth every 6 (six) hours as needed for Pain (scale 4-6). Indication s: chronic pain [facility] albuterol 90 mcg/actuati on inhaler 03-26 00:00: 00 06-09 00:00 :00 No [id number] INHALE 2 PUFFS BY MOUTH EVERY 4 HOURS NEEDED FOR WHEEZING [facility] lactulose 10 gram/15 mL solution 03-26 00:00: 00 06-09 00:00 :00 No [id number] TAKE 15 ML BY MOUTH EVERY DAY NEEDED FOR CONSTIPATI ON [facility] sulfamethox azole-trime thoprim (BACTRIM DS) 800-160 mg per tablet 03-05 00:00: 00 Yes [id number] 1{tbl} Take 1 tablet by mouth in the morning and 1 tablet in the evening. [facility] HYDROcodone -acetaminop hen 10-325 mg tablet 03-05 00:00: 00 03-26 00:00 :00 No [id number] 1{tbl} Take 1 tablet by mouth every 6 (six) hours as needed for Pain (scale 4-6). Indication s: chronic pain [facility] clonazePAM 2 mg tablet 03-04 00:00: 00 05-28 00:00 :00 No [id number] 2mg Take 1 tablet by mouth in the morning and 1 tablet in the evening. [facility] albuterol 90 mcg/actuati on inhaler 03-04 00:00: 00 03-26 00:00 :00 No [id number] INHALE 2 PUFFS BY MOUTH EVERY 4 HOURS NEEDED FOR WHEEZING [facility] triamcinolo ne acetonide (KENALOG) injection 40 mg 02-27 05:00: 00 02-27 16:59 :00 No [id number] 40mg [facility] hydroCHLORO thiazide 25 mg tablet - 00:00: 00 06-09 00:00 :00 No [id number] 25mg Take 1 tablet by mouth in the morning. [facility] ketorolac (TORADOL) injection 30 mg 3-29 18:15: 02-19 19:08 :00 No 30mg 30 mg, Intramuscu lar, ONCE, 1 dose, On Fri02/19/23 at 1315, Routine [facility] dexamethaso ne (DECADRON PHOSPHATE) injection 10 mg 02-19 18:15: 00 02-19 18:15 :00 No 10mg 10 mg, Oral, ONCE, 1 dose, On Fri02/19/23 at 1315, Routine [facility] methocarbam oL (ROBAXIN) tablet 1,500 mg 02-19 17:15: 00 02-19 19:07 :00 No 1500mg 1,500 mg, Oral, ONCE, 1 dose, On Fri02/19/23 at 1215, QAMAR [facility] ketorolac 10 mg tablet 02-19 00:00: 00 04-08 00:00 :00 No [id number] 10mg Take 1 tablet by mouth every 6 (six) hours as needed for Pain (scale 7-10). [facility] methocarbam oL 500 mg tablet 02-19 00:00: 00 02-27 04:59 :00 No [id number] 500mg Take 1 tablet by mouth 4 (four) times daily for 7 days. [facility] ibuprofen 800 mg tablet 02-03 00:00: 00 Yes [id number] 800mg Take 1 tablet by mouth every 6 (six) hours as needed for Pain (scale 4-6). [facility] HYDROcodone -acetaminop hen 10-325 mg tablet 02-03 00:00: 00 03-05 00:00 :00 No [id number] 1{tbl} Take 1 tablet by mouth every 6 (six) hours as needed for Pain (scale 4-6). Indication s: chronic pain [facility] LOSARTAN 100 mg tablet 01-28 00:00: 00 06-09 00:00 :00 No [id number] 100mg TAKE 1 TABLET BY MOUTH IN THE MORNING [facility] pantoprazol e 20 mg EC tablet 12-31 00:00: 00 06-09 00:00 :00 No [id number] 20mg Take 1 tablet by mouth in the morning. [facility] albuterol 90 mcg/actuati on inhaler 2- 00:00: 00 03-04 00:00 :00 No [id number] INHALE 2 PUFFS BY MOUTH EVERY 4 HOURS NEEDED FOR WHEEZING [facility] HYDROcodone -acetaminop hen 10-325 mg tablet 12-30 00:00: 00 02-03 00:00 :00 No [id number] 1{tbl} Take 1 tablet by mouth every 6 (six) hours as needed for Pain (scale 4-6). Indication s: chronic pain [facility] ibuprofen 800 mg tablet 12-30 00:00: 00 02-03 00:00 :00 No [id number] 800mg Take 1 tablet by mouth every 6 (six) hours as needed for Pain (scale 4-6). [facility] pantoprazol e 20 mg EC tablet 12-30 00:00: 00 12-31 00:00 :00 No [id number] 20mg Take 1 tablet by mouth in the morning. [facility] albuterol 90 mcg/actuati on inhaler 1- 00:00: 00 12-30 00:00 :00 No [id number] INHALE 2 PUFFS BY MOUTH EVERY 4 HOURS NEEDED FOR WHEEZING [facility] HYDROcodone -acetaminop hen 10-325 mg tablet 1- 00:00: 00 12-30 00:00 :00 No [id number] 1{tbl} Take 1 tablet by mouth every 6 (six) hours as needed for Pain (scale 4-6) for up to 7 days. Indication s: chronic pain [facility] amLODIPine (NORVASC) 10 mg tablet 2021-11 2- 00:00: 00 10-02 00:00 :00 No [id number] 10mg Take 1 tablet by mouth in the morning. [facility] lactulose 10 gram/15 mL solution 2022-1 2-05 00:00: 03-26 00:00 :00 No TAKE 15 ML BY MOUTH EVERY DAY NEEDED FOR CONSTIPATI ON [facility] HYDROcodone -acetaminop hen 10-325 mg tablet 2021-11 2- 00:00: 00 11-05 05:59 :00 No [id number] 1{tbl} Take 1 tablet by mouth every 6 (six) hours as needed for Pain (scale 4-6) for up to 7 days. Indication s: chronic pain [facility] amLODIPine (NORVASC) 5 mg tablet 2021-11 2- 00:00: 00 10-30 00:00 :00 No [id number] 5mg Take 1 tablet by mouth in the morning. [facility] albuterol 90 mcg/actuati on inhaler 2021-11- 00:00: 00 11-27 00:00 :00 No [id number] INHALE 2 PUFFS BY MOUTH EVERY 4 HOURS NEEDED FOR WHEEZING [facility] HYDROcodone -acetaminop hen 7.5-325 mg per tablet 2021-11 00:00: 00 10-03 05:59 :00 No [id number] 1{tbl} Take 1 tablet by mouth every 6 (six) hours as needed for Pain for up to 7 days. Indication s: chronic pain [facility] venlafaxine 75 mg tablet 2021-11 0-10 00:00: 00 06-09 00:00 :00 No [id number] 75mg Take 1 tablet by mouth in the morning and 1 tablet in the evening. [facility] clonazePAM 2 mg tablet 2021-11 0-10 00:00: 00 03-04 00:00 :00 No [id number] 2mg Take 1 tablet by mouth in the morning and 1 tablet in the evening. [facility] pantoprazol e 20 mg EC tablet 2021-11 0-10 00:00: 00 12-30 00:00 :00 No [id number] 20mg Take 1 tablet by mouth in the morning. [facility] albuterol 90 mcg/actuati on inhaler 2021-11 00:00: 00 09-25 00:00 :00 No [id number] INHALE 2 PUFFS BY MOUTH EVERY 4 HOURS NEEDED FOR WHEEZING [facility] HYDROcodone -acetaminop hen 7.5-325 mg per tablet 2021-11 00:00: 00 09-10 04:59 :00 No [id number] 1{tbl} Take 1 tablet by mouth every 8 (eight) hours as needed for Pain for up to 7 days. Indication s: chronic pain [facility] NaCl 0.9% (NS) IV infusion 1,000 mL 2021-11 17:45: 00 09-01 18:21 :00 No 1000mL at 999 mL/hr, Intravenou s, ONCE, 1 dose, On 09/01/22 at 1245, QAMAR [facility] cloNIDine (CATAPRES) tablet 0.1 mg 2021-11 17:30: 00 09-01 17:21 :00 No .1mg 0.1 mg, Oral, ONCE, 1 dose, On 09/01/22 at 1230, STAT [facility] LORazepam (ATIVAN) tablet 2 mg 2021-11 16:30: 00 09-01 17:11 :00 No 2mg 2 mg, Oral, ONCE, 1 dose, On 09/01/22 at 1130, QAMAR [facility] iopamidol (ISOVUE 370-500 mL) injection 80 mL 2021-11 15:45: 00 09-01 16:00 :00 No [id number] 80mL 80 mL, Intravenou s, ONCE, 1 dose, On 09/01/22 at 1100, Routine [facility] ondansetron (ZOFRAN (PF)) injection 4 mg 2021-11 14:30: 00 09-01 14:21 :00 No 4mg 4 mg, Slow IV Push, ONCE, 1 dose, On 09/01/22 at 0930, QAMAR [facility] morpHINE (4 mg/mL) injection 4 mg 2021-11 14:30: 00 09-01 14:22 :00 No 4mg 4 mg, Slow IV Push, ONCE, 1 dose, On 09/01/22 at 0930, STAT [facility] HYDROcodone -acetaminop hen 7.5-325 mg per tablet 14 00:00: 00 08-15 04:59 :00 No [id number] 1{tbl} Take 1 tablet by mouth every 6 (six) hours as needed for Pain for up to 7 days. Indication s: chronic pain [facility] budesonide/ formoterol fumarate (SYMBICORT INHALE) 07-03 15:39: 24 07-03 00:00 :00 No Inhale. [facility] temazepam 15 mg capsule 07-03 15:36: 31 07-03 00:00 :00 No 15mg Take 15 mg by mouth at bedtime as needed for Insomnia. [facility] Venlafaxine 225 mg TR24 07-03 15:34: 06 07-03 00:00 :00 No 75mg Take 75 mg by mouth every morning. [facility] losartan 100 mg tablet 07-03 00:00: 00 01-28 00:00 :00 No [id number] 100mg Take 1 tablet by mouth in the morning. [facility] venlafaxine 75 mg tablet 07-03 00:00: 00 09-02 00:00 :00 No [id number] 75mg Take 1 tablet by mouth in the morning and 1 tablet in the evening. [facility] pantoprazol e 20 mg EC tablet 07-03 00:00: 00 09-02 00:00 :00 No [id number] 20mg Take 1 tablet by mouth in the morning. [facility] clonazePAM 2 mg tablet 07-03 00:00: 00 09-02 00:00 :00 No [id number] 2mg Take 1 tablet by mouth in the morning and 1 tablet in the evening. [facility] albuterol 90 mcg/actuati on inhaler 8-10 00:00: 09-02 00:00 :00 No [id number] INHALE 2 PUFFS BY MOUTH EVERY 4 HOURS NEEDED FOR WHEEZING [facility] HYDROcodone -acetaminop hen 7.5-325 mg per tablet 8-10 00:00: 00 07-11 04:59 :00 No [id number] 1{tbl} Take 1 tablet by mouth every 8 (eight) hours as needed for Pain for up to 7 days. Indication s: chronic pain [facility] ALBUTEROL 90 mcg/actuati on inhaler 5-17 00:00: 00 07-03 00:00 :00 No [id number] INHALE 2 PUFFS BY MOUTH EVERY 4 HOURS NEEDED FOR WHEEZING [facility] acetaminoph en-codeine (TYLENOL-CO DEINE #3) 300-30 mg tablet 4-21 00:00: 00 07-03 00:00 :00 No [id number] 1{tbl} Take 1 tablet by mouth every 4 (four) hours as needed for Pain (scale 4-6) or Pain (scale 7-10). Indication s: acute pain [facility] traMADoL 50 mg tablet 4-14 00:00: 00 07-03 00:00 :00 No [id number] 50mg Take 1 tablet by mouth every 4 (four) hours as needed for Pain (scale 7-10). Indication s: acute pain [facility] pentazocine -naloxone 50-0.5 mg tablet 4-11 00:00: 00 07-03 00:00 :00 No [id number] 1{tbl} Take 1 tablet by mouth every 4 (four) hours as needed for Pain. Indication s: acute pain [facility] diclofenac 75 mg EC tablet 2020-11 2-16 00:00: 00 12-30 00:00 :00 No [id number] 75mg Take 1 tablet by mouth 2 (two) times daily with meals. [facility] traMADoL 50 mg tablet 2020-11 2-09 00:00: 00 07-03 00:00 :00 No [id number] 50mg Take 1 tablet by mouth every 4 (four) hours as needed for Pain (scale 7-10). Indication s: acute pain [facility] METOPROLOL SUCCINATE XL 25 mg 24 hr tablet 2020-11 1-30 00:00: 00 07-03 00:00 :00 No TAKE 1 TABLET BY MOUTH TWICE DAILY [facility] budesonide- formoteroL (SYMBICORT) 160-4.5 mcg/actuati on inhaler 2020-11 0 00:00: 00 07-03 00:00 :00 No [id number] 2{puff} Inhale 2 Puffs 2 (two) times daily. [facility] pantoprazol e 20 mg EC tablet 2020-11 00:00: 00 07-03 00:00 :00 No [id number] 20mg Take 1 tablet by mouth daily. [facility] losartan 100 mg tablet 2020-11 0 00:00: 00 07-03 00:00 :00 No [id number] 100mg Take 1 tablet by mouth daily. [facility] Diclofenac Sodium (VOLTAREN) 1 % gel 2020-11 0 00:00: 00 07-03 00:00 :00 No [id number] Apply to area(s) 2 (two) times daily. [facility] OLANZapine 10 mg tablet 9-29 00:00: 00 07-03 00:00 :00 No 10mg Take 10 mg by mouth every morning. [facility] ARIPiprazol e 2 mg tablet 6-12 00:00: 00 07-03 00:00 :00 No [facility] clonazePAM 2 mg tablet 5-05 00:00: 00 07-03 00:00 :00 No [facility] Vital Signs Vital Name Observation Time Observation Value Comments S irma Systolic blood pressure 2024-05-11 15:38:00 129 mm[Hg] [facility] Diastolic blood pressure 2024-05-11 15:38:00 85 mm[Hg] [facility] Heart rate 2024-05-11 15:38:00 75 /min [facility] Respiratory rate 2024-05-11 15:38:00 20 /min [facility] Body height 2024-05-11 15:38:00 154.9 cm [facility] Body weight 2024-05-11 15:38:00 70.761 kg [facility] BMI 2024-05-11 15:38:00 29.48 kg/m2 [facility] Oxygen saturation in Arterial blood by Pulse oximetry 2024-05-11 15:38:00 98 /min [facility] Systolic blood pressure 2024-04-28 17:32:00 150 mm[Hg] [facility] Diastolic blood pressure 2024-04-28 17:32:00 90 mm[Hg] [facility] Heart rate 2024-04-28 17:18:00 92 /min [facility] Body height 2024-04-28 17:18:00 154.9 cm [facility] Body weight 2024-04-28 17:18:00 73.165 kg [facility] BMI 2024-04-28 17:18:00 30.48 kg/m2 [facility] Oxygen saturation in Arterial blood by Pulse oximetry 2024-04-28 17:18:00 98 /min [facility] Systolic blood pressure 2024-04-12 17:06:00 139 mm[Hg] [facility] Diastolic blood pressure 2024-04-12 17:06:00 89 mm[Hg] [facility] Heart rate 2024-04-12 17:06:00 77 /min [facility] Body height 2024-04-12 17:06:00 154.9 cm [facility] Body weight 2024-04-12 17:06:00 75.615 kg [facility] BMI 2024-04-12 17:06:00 31.50 kg/m2 [facility] Oxygen saturation in Arterial blood by Pulse oximetry 2024-04-12 17:06:00 98 /min [facility] Systolic blood pressure 2024-04-08 18:21:30 114 mm[Hg] [facility] Diastolic blood pressure 2024-04-08 18:21:30 75 mm[Hg] [facility] Heart rate 2024-04-08 18:21:30 67 /min [facility] Respiratory rate 2024-04-08 18:21:30 16 /min [facility] Oxygen saturation in Arterial blood by Pulse oximetry 2024-04-08 18:21:30 95 /min [facility] Body temperature 2024-04-08 16:32:00 37 [place] [facility] Body height 2024-04-08 16:32:00 154.9 cm [facility] Body weight 2024-04-08 16:32:00 75.751 kg [facility] BMI 2024-04-08 16:32:00 31.55 kg/m2 [facility] Systolic blood pressure 2024-03-18 15:45:00 155 mm[Hg] [facility] Diastolic blood pressure 2024-03-18 15:45:00 93 mm[Hg] [facility] Heart rate 2024-03-18 15:44:00 100 /min [facility] Body height 2024-03-18 15:44:00 154.9 cm [facility] Body weight 2024-03-18 15:44:00 78.472 kg [facility] BMI 2024-03-18 15:44:00 32.69 kg/m2 [facility] Oxygen saturation in Arterial blood by Pulse oximetry 2024-03-18 15:44:00 97 /min [facility] Heart rate 2024-03-15 18:12:00 100 /min [facility] Body height 2024-03-15 18:12:00 154.9 cm [facility] Body weight 2024-03-15 18:12:00 77.474 kg [facility] BMI 2024-03-15 18:12:00 32.27 kg/m2 [facility] Oxygen saturation in Arterial blood by Pulse oximetry 2024-03-15 18:12:00 97 /min [facility] Systolic blood pressure 2024-03-15 18:12:00 140 mm[Hg] [facility] Diastolic blood pressure 2024-03-15 18:12:00 80 mm[Hg] [facility] Systolic blood pressure 2024-01-14 16:06:00 137 mm[Hg] [facility] Diastolic blood pressure 2024-01-14 16:06:00 85 mm[Hg] [facility] Heart rate 2024-01-14 16:05:00 92 [facility] Body height 2024-01-14 16:05:00 154.9 cm [facility] Body weight 2024-01-14 16:05:00 86.093 kg [facility] BMI 2024-01-14 16:05:00 35.86 kg/m2 [facility] Oxygen saturation in Arterial blood by Pulse oximetry 2024-01-14 16:05:00 94 /min [facility] Systolic blood pressure 2023-12-15 15:19:00 139 mm[Hg] [facility] Diastolic blood pressure 2023-12-15 15:19:00 89 mm[Hg] [facility] Heart rate 2023-12-15 15:19:00 102 /min [facility] Respiratory rate 2023-12-15 15:19:00 18 /min [facility] Body height 2023-12-15 15:19:00 154.9 cm [facility] Body weight 2023-12-15 15:19:00 86.501 kg [facility] BMI 2023-12-15 15:19:00 36.03 kg/m2 [facility] Oxygen saturation in Arterial blood by Pulse oximetry 2023-12-15 15:19:00 94 /min [facility] Systolic blood pressure 2023-11-12 15:54:00 124 mm[Hg] [facility] Diastolic blood pressure 2023-11-12 15:54:00 86 mm[Hg] [facility] Heart rate 2023-11-12 15:54:00 96 /min [facility] Body height 2023-11-12 15:54:00 157.5 cm [facility] Body weight 2023-11-12 15:54:00 84.641 kg [facility] BMI 2023-11-12 15:54:00 34.13 kg/m2 [facility] Oxygen saturation in Arterial blood by Pulse oximetry 2023-11-12 15:54:00 96 /min [facility] Systolic blood pressure 2023-10-02 18:23:00 163 mm[Hg] [facility] Diastolic blood pressure 2023-10-02 18:23:00 100 mm[Hg] [facility] Heart rate 2023-10-02 18:22:00 96 /min [facility] Respiratory rate 2023-10-02 18:22:00 18 /min [facility] Body height 2023-10-02 18:22:00 154.9 cm [facility] Body weight 2023-10-02 18:22:00 90.81 kg [facility] BMI 2023-10-02 18:22:00 37.83 kg/m2 [facility] Oxygen saturation in Arterial blood by Pulse oximetry 2023-10-02 18:22:00 97 /min [facility] Systolic blood pressure 2023-09-29 08:11:00 136 mm[Hg] [facility] Diastolic blood pressure 2023-09-29 08:11:00 90 mm[Hg] [facility] Heart rate 2023-09-29 08:11:00 87 /min [facility] Body temperature 2023-09-29 08:11:00 36.72 [place] Respiratory rate 2023-09-29 08:11:00 20 /min [facility] Body height 2023-09-29 08:11:00 154.9 cm [facility] Body weight 2023-09-29 08:11:00 87.091 kg [facility] BMI 2023-09-29 08:11:00 36.28 kg/m2 [facility] Oxygen saturation in Arterial blood by Pulse oximetry 2023-09-29 08:11:00 94 /min [facility] Systolic blood pressure 2023-09-04 15:33:00 132 mm[Hg] [facility] Diastolic blood pressure 2023-09-04 15:33:00 77 mm[Hg] [facility] Heart rate 2023-09-04 15:33:00 94 /min [facility] Body temperature 2023-09-04 15:33:00 36.28 [place] Body height 2023-09-04 15:33:00 154.9 cm [facility] Body weight 2023-09-04 15:33:00 87.317 kg [facility] BMI 2023-09-04 15:33:00 36.37 kg/m2 [facility] Oxygen saturation in Arterial blood by Pulse oximetry 2023-09-04 15:33:00 95 /min [facility] Systolic blood pressure 2023-08-11 15:56:00 131 mm[Hg] [facility] Diastolic blood pressure 2023-08-11 15:56:00 86 mm[Hg] [facility] Heart rate 2023-08-11 15:56:00 101 /min [facility] Body temperature 2023-08-11 15:56:00 35.56 [facility] Respiratory rate 2023-08-11 15:56:00 19 /min [facility] Body height 2023-08-11 15:56:00 154.9 cm [facility] Body weight 2023-08-11 15:56:00 88.95 kg [facility] BMI 2023-08-11 15:56:00 37.05 kg/m2 [facility] Oxygen saturation in Arterial blood by Pulse oximetry 2023-08-11 15:56:00 93 /min [facility] Systolic blood pressure 2023-08-06 15:14:00 132 mm[Hg] [facility] Diastolic blood pressure 2023-08-06 15:14:00 78 mm[Hg] [facility] Heart rate 2023-08-06 15:13:00 91 /min [facility] Respiratory rate 2023-08-06 15:13:00 18 /min [facility] Body height 2023-08-06 15:13:00 154.9 cm [facility] Body weight 2023-08-06 15:13:00 87.862 kg [facility] BMI 2023-08-06 15:13:00 36.60 kg/m2 [facility] Oxygen saturation in Arterial blood by Pulse oximetry 2023-08-06 15:13:00 96 /min [facility] Systolic blood pressure 2023-07-09 20:14:00 139 mm[Hg] [facility] Diastolic blood pressure 2023-07-09 20:14:00 85 mm[Hg] [facility] Heart rate 2023-07-09 20:14:00 96 /min [facility] Body height 2023-07-09 20:14:00 154.9 cm [facility] Body weight 2023-07-09 20:14:00 80.74 kg [facility] BMI 2023-07-09 20:14:00 33.63 kg/m2 [facility] Oxygen saturation in Arterial blood by Pulse oximetry 2023-07-09 20:14:00 97 /min [facility] Systolic blood pressure 2023-06-20 14:45:00 114 mm[Hg] [facility] Diastolic blood pressure 2023-06-20 14:45:00 75 mm[Hg] [facility] Heart rate 2023-06-20 14:45:00 99 /min [facility] Respiratory rate 2023-06-20 14:45:00 18 /min [facility] Body height 2023-06-20 14:45:00 154.9 cm [facility] Body weight 2023-06-20 14:45:00 81.364 kg [facility] BMI 2023-06-20 14:45:00 33.89 kg/m2 [facility] Oxygen saturation in Arterial blood by Pulse oximetry 2023-06-20 14:45:00 90 /min [facility] Systolic blood pressure 2023-06-09 17:45:00 136 mm[Hg] [facility] Diastolic blood pressure 2023-06-09 17:45:00 80 mm[Hg] [facility] Heart rate 2023-06-09 17:45:00 108 /min [facility] Respiratory rate 2023-06-09 17:45:00 18 /min [facility] Body height 2023-06-09 17:45:00 154.9 cm [facility] Body weight 2023-06-09 17:45:00 79.425 kg [facility] BMI 2023-06-09 17:45:00 33.08 kg/m2 [facility] Oxygen saturation in Arterial blood by Pulse oximetry 2023-06-09 17:45:00 96 /min [facility] Systolic blood pressure 2023-04-17 15:28:00 112 mm[Hg] [facility] Diastolic blood pressure 2023-04-17 15:28:00 78 mm[Hg] [facility] Heart rate 2023-04-17 15:28:00 87 /min [facility] Body temperature 2023-04-17 15:28:00 37.06 [facility] Respiratory rate 2023-04-17 15:28:00 20 /min [facility] Body height 2023-04-17 15:28:00 154.9 cm [facility] Body weight 2023-04-17 15:28:00 77.202 kg [facility] BMI 2023-04-17 15:28:00 32.16 kg/m2 [facility] Oxygen saturation in Arterial blood by Pulse oximetry 2023-04-17 15:28:00 96 /min [facility] Systolic blood pressure 2023-04-15 19:23:00 145 mm[Hg] [facility] Diastolic blood pressure 2023-04-15 19:23:00 93 mm[Hg] [facility] Heart rate 2023-04-15 19:17:00 89 /min [facility] Body temperature 2023-04-15 19:17:00 37 [place] [facility] Respiratory rate 2023-04-15 19:17:00 16 /min [facility] Body height 2023-04-15 19:17:00 154.9 cm [facility] Body weight 2023-04-15 19:17:00 78.019 kg [facility] BMI 2023-04-15 19:17:00 32.50 kg/m2 [facility] Oxygen saturation in Arterial blood by Pulse oximetry 2023-04-15 19:17:00 96 /min [facility] Systolic blood pressure 2023-04-13 22:55:00 132 mm[Hg] [facility] Diastolic blood pressure 2023-04-13 22:55:00 88 mm[Hg] [facility] Heart rate 2023-04-13 22:55:00 81 /min [facility] Body temperature 2023-04-13 22:55:00 37.22 [place] Respiratory rate 2023-04-13 22:55:00 14 /min [facility] Body height 2023-04-13 22:55:00 154.9 cm [facility] Body weight 2023-04-13 22:55:00 81.647 kg [facility] BMI 2023-04-13 22:55:00 34.01 kg/m2 [facility] Oxygen saturation in Arterial blood by Pulse oximetry 2023-04-13 22:55:00 99 /min [facility] Systolic blood pressure 2023-04-10 02:05:00 139 mm[Hg] [facility] Diastolic blood pressure 2023-04-10 02:05:00 73 mm[Hg] [facility] Heart rate 2023-04-10 02:05:00 87 /min [facility] Body temperature 2023-04-10 02:05:00 37.06 [facility] Respiratory rate 2023-04-10 02:05:00 20 /min [facility] Body height 2023-04-10 02:05:00 154.9 cm [facility] Body weight 2023-04-10 02:05:00 81.647 kg [facility] BMI 2023-04-10 02:05:00 34.01 kg/m2 [facility] Oxygen saturation in Arterial blood by Pulse oximetry 2023-04-10 02:05:00 98 /min [facility] Body height 2023-04-08 20:56:00 154.9 cm [facility] Body weight 2023-04-08 20:56:00 75.297 kg [facility] BMI 2023-04-08 20:56:00 31.37 kg/m2 [facility] Systolic blood pressure 2023-03-26 20:08:00 139 mm[Hg] [facility] Diastolic blood pressure 2023-03-26 20:08:00 72 mm[Hg] [facility] Heart rate 2023-03-26 19:39:00 92 /min [facility] Body height 2023-03-26 19:39:00 154.9 cm [facility] Body weight 2023-03-26 19:39:00 75.66 kg [facility] BMI 2023-03-26 19:39:00 31.52 kg/m2 [facility] Oxygen saturation in Arterial blood by Pulse oximetry 2023-03-26 19:39:00 95 /min [facility] Body weight 2023-02-27 15:35:00 80.74 kg [facility] BMI 2023-02-27 15:35:00 33.63 kg/m2 [facility] Systolic blood pressure 2023-02-24 16:36:00 132 mm[Hg] [facility] Diastolic blood pressure 2023-02-24 16:36:00 85 mm[Hg] [facility] Heart rate 2023-02-24 16:36:00 84 /min [facility] Oxygen saturation in Arterial blood by Pulse oximetry 2023-02-24 16:36:00 96 /min [facility] Body temperature 2023-02-24 16:35:00 37.56 [facility] Body height 2023-02-24 16:35:00 154.9 cm [facility] Body weight 2023-02-24 16:35:00 80.967 kg [facility] BMI 2023-02-24 16:35:00 33.73 kg/m2 [facility] Systolic blood pressure 2023-02-19 15:32:00 153 mm[Hg] [facility] Diastolic blood pressure 2023-02-19 15:32:00 100 mm[Hg] [facility] Heart rate 2023-02-19 15:32:00 87 /min [facility] Body temperature 2023-02-19 15:32:00 37.11 [place] Respiratory rate 2023-02-19 15:32:00 18 /min [facility] Body weight 2023-02-19 15:32:00 82.555 kg [facility] BMI 2023-02-19 15:32:00 34.39 kg/m2 [facility] Oxygen saturation in Arterial blood by Pulse oximetry 2023-02-19 15:32:00 99 /min [facility] Systolic blood pressure 2023-02-03 19:38:00 155 mm[Hg] [facility] Diastolic blood pressure 2023-02-03 19:38:00 87 mm[Hg] [facility] Heart rate 2023-02-03 19:38:00 96 /min [facility] Body height 2023-02-03 19:37:00 154.9 cm [facility] Body weight 2023-02-03 19:37:00 82.827 kg [facility] BMI 2023-02-03 19:37:00 34.50 kg/m2 [facility] Oxygen saturation in Arterial blood by Pulse oximetry 2023-02-03 19:37:00 97 /min [facility] Systolic blood pressure 2022-12-30 18:30:00 135 mm[Hg] [facility] Diastolic blood pressure 2022-12-30 18:30:00 85 mm[Hg] [facility] Heart rate 2022-12-30 18:30:00 90 /min [facility] Body height 2022-12-30 18:30:00 154.9 cm [facility] Body weight 2022-12-30 18:30:00 79.878 kg [facility] [facility] 2022-12-30 18:30:00 33.27 kg/m2 [facility] Oxygen saturation in Arterial blood by Pulse oximetry 2022-12-30 18:30:00 96 /min [facility] Systolic blood pressure 2022-11-27 19:49:00 144 mm[Hg] [facility] Diastolic blood pressure 2022-11-27 19:49:00 84 mm[Hg] [facility] Heart rate 2022-11-27 19:45:00 91 /min [facility] height 2022-11-27 19:45:00 154.9 cm [facility] Body weight 2022-11-27 19:45:00 80.423 kg [facility] BMI 2022-11-27 19:45:00 33.50 kg/m2 [facility] Oxygen saturation in Arterial blood by Pulse oximetry 2022-11-27 19:45:00 98 /min [facility] Systolic blood pressure 2022-10-30 16:59:00 165 mm[Hg] [facility] Diastolic blood pressure 2022-10-30 16:59:00 95 mm[Hg] [facility] Heart rate 2022-10-30 16:59:00 73 /min Unive [facility] Oxygen saturation in Arterial blood by Pulse oximetry 2022-10-30 16:59:00 97 /min [facility] Body temperature 2022-10-30 16:57:00 36.39 [facility] Respiratory rate 2022-10-30 16:57:00 16 /min [facility] Body height 2022-10-30 16:57:00 154.9 cm [facility] Body weight 2022-10-30 16:57:00 80.377 kg [facility] BMI 2022-10-30 16:57:00 33.48 kg/m2 [facility] Systolic blood pressure 2022-10-28 19:15:00 205 mm[Hg] [facility] Diastolic blood pressure 2022-10-28 19:15:00 103 mm[Hg] [facility] Heart rate 2022-10-28 19:14:00 89 /min [email or web address] Body height 2022-10-28 19:14:00 154.9 cm [facility] Body weight 2022-10-28 19:14:00 84.369 kg [facility] BMI 2022-10-28 19:14:00 35.14 kg/m2 [facility] Oxygen saturation in Arterial blood by Pulse oximetry 2022-10-28 19:14:00 96 /min [facility] Systolic blood pressure 2022-09-25 18:22:00 178 mm[Hg] [facility] Diastolic blood pressure 2022-09-25 18:22:00 92 mm[Hg] [facility] Heart rate 2022-09-25 18:13:00 92 /min Unive [email or web address] Body height 2022-09-25 18:13:00 154.9 cm [facility] Body weight 2022-09-25 18:13:00 81.647 kg Univ [facility] BMI 2022-09-25 18:13:00 34.01 kg/m2 Univ [facility] Oxygen saturation in Arterial blood by Pulse oximetry 2022-09-25 18:13:00 97 /min [facility] Systolic blood pressure 2022-09-02 19:17:00 140 mm[Hg] Duarte o [facility] Diastolic blood pressure 2022-09-02 19:17:00 80 mm[Hg] [facility] Heart rate 2022-09-02 19:17:00 106 /min [facility] Body weight 2022-09-02 19:17:00 73.483 kg [facility] BMI 2022-09-02 19:17:00 30.61 kg/m2 [facility] Oxygen saturation in Arterial blood by Pulse oximetry 2022-09-02 19:17:00 97 /min [facility] Systolic blood pressure 2022-09-01 18:15:00 142 mm[Hg] [facility] Diastolic blood pressure 2022-09-01 18:15:00 71 mm[Hg] [facility] Heart rate 2022-09-01 18:15:00 93 /min Unive [facility] Respiratory rate 2022-09-01 18:15:00 19 /min [facility] Oxygen saturation in Arterial blood by Pulse oximetry 2022-09-01 18:15:00 98 /min [facility] Body temperature 2022-09-01 13:47:00 36.22 [facility] Body weight 2022-09-01 13:47:00 83.008 kg [facility] BMI 2022-09-01 13:47:00 34.58 kg/m2 [facility] Systolic blood pressure 2022-07-03 20:15:00 156 mm[Hg] [facility] Diastolic blood pressure 2022-07-03 20:15:00 92 mm[Hg] [facility] Heart rate 2022-07-03 20:15:00 96 /min Unive [facility] Body weight 2022-07-03 20:15:00 83.28 kg [facility] BMI 2022-07-03 20:15:00 34.69 kg/m2 [facility] Oxygen saturation in Arterial blood by Pulse oximetry 2022-07-03 20:15:00 97 /min [facility] Procedures Procedure Date / Time Performed Performing Clinician Source XR LUMBAR SPINE 3 VW 2024-04-08 17:04:51 Richie Meza [facility] XR ELBOW <3 VW LEFT 2024-04-08 17:04:51 Dane Meza [facility] AUTHORIZATION FOR RELEASE OF PHI 2023-10-30 06:01:00 Doctor Unassigned, [place] [facility] CONSENT/REFUSAL FOR DIAGNOSIS AND TREATMENT 2023-09-29 08:23:02 Doctor Unassigned, [place] [facility] ASSIGNMENT OF BENEFITS 2023-09-29 08:22:17 Docto r Unassigned, [place] [facility] MEDICATION CORRESPONDENCE 2023-06-24 05:01:00 Do ctor Unassigned, [place] [facility] POCT URINALYSIS 2023-06-09 18:18:00 [facility]UR[facility] CORRESPONDENCE 2023-05-30 05:01:00 Doc tor Unassigned, [place] [facility] HIGH RISK HPV-THIN PREP 2023-04-17 16:00:00 Adum, Ju rand L [facility] PAP SMEAR-LIQUID BASED-CP 2023-04-17 16:00:00 Adum, Carol hong L [facility] LAB ONLY PAP SMEAR-LIQUID BASED 2023-04-17 16:00:00 Adum, Ellie Mcleod [facility] POCT TEST 2023-04-17 00:00:00 Adum, Ellie Mcleod [facility] POCT URINALYSIS 2023-04-15 19:29:00 Prosper Sims [facility] POCT TEST 2023-04-15 19:28:00 Stephnae Snow [facility] ASSIGNMENT OF BENEFITS 2023-04-13 23:45:56 Docto r Unassigned, [place] [facility] URINALYSIS 2023-04-13 23:24:00 Dereck Johnson [facility] CONSENT/REFUSAL FOR DIAGNOSIS AND TREATMENT 2023-04-13 22:45:01 Doctor Unassigned, [place] [facility] NOTICE OF PRIVACY PRACTICES 2023-04-10 01:57:37 Doctor Unassigned, [place] [facility] POCT URINALYSIS 2023-02-24 00:00:00 [facility] LUMBAR SPINE 3 VW 2023-02-19 17:37:06 Lydia Andrade [facility] XR KNEE 3 VW LEFT 2023-02-19 17:37:06 Quentin Andrade [facility] CONSENT/REFUSAL FOR DIAGNOSIS AND TREATMENT 2023-02-19 15:29:06 Doctor Unassigned, [place] [facility] PATIENT FINANCIAL POLICY 2023-02-03 18:57:26 Doctor Unassigned, [place] [facility] MEDICATION CORRESPONDENCE 2022-12-11 06:01:00 Do ctor Unassigned, [place] [facility] MEDICATION CORRESPONDENCE 2022-11-22 06:01:00 Do ctor Unassigned, [place] [facility] CONSENT/REFUSAL FOR DIAGNOSIS AND TREATMENT 2022-09-25 17:57:27 Doctor Unassigned, [place] [facility] EKG-12 LEAD 2022-09-01 18:23:52 Deidra Meek [facility] CT CHEST PULMONARY ANGIOGRAM 2022-09-01 15:45:19 Deidra Meek [facility] XR CHEST 1 VW 2022-09-01 14:40:31 Deidra Meek [facility] URINE DRUG (IMMUNOASSAY) - COMPREHENSIVE DRUG SCREEN W/O REFLEX 2022-09-01 14:23:00 Deidra Meek [facility] LIPASE 2022-09-01 14:22:00 Deidra Meek [facility] MAGNESIUM 2022-09-01 14:22:00 Deidra Meek [facility] TROPONIN I 2022-09-01 14:22:00 Deidra Meek [facility] THYROID STIMULATING HORMONE 2022-09-01 14:22:00 Deidra Meek [facility] COMP. METABOLIC PANEL (77257) 2022-09-01 14:22:00 Deidra Meek [facility] ETHANOL 2022-09-01 14:22:00 Deidra Meek [facility] CBC WITH DIFF 2022-09-01 14:22:00 Deidra Meek [facility] D-DIMER 2022-09-01 14:22:00 Deidra Meek [facility] URINALYSIS 2022-09-01 14:22:00 Deidra Meek [facility] N-TERMINAL PRO-BNP 2022-09-01 14:22:00 Deidra Meek [facility] COVID-19 (ID NOW RAPID TESTING) 2022-09-01 14:22:00 Deidra Meek [facility] Encounters Start Date/Time End Date/Time Encounter Type Admission Type Attending [facility] Care Facility Care Department Encounter ID Source 2021-09-25 05:37:23 Emergency [facility] [id number] [facility] 2021-09-24 23:15:39 Emergency [facility] [id number] [facility] 2021-09-24 22:03:21 Emergency [facility] [id number] [facility] 2021-09-24 11:06:58 Emergency [facility] [id number] [facility] 2021-09-23 18:54:33 Emergency [facility] [id number] [facility] 2021-09-23 14:49:00 Emergency [facility] [id number] [facility] 2021-09-21 14:23:37 Emergency [facility] [id number] [facility] 2021-09-21 11:35:45 Emergency [facility] [id number] [facility] 2021-09-21 07:31:33 Emergency [facility] [id number] [facility] 2021-09-21 06:11:19 Emergency [facility] [id number] [facility] 2021-08-10 08:51:00 Inpatient [facility] [id number] 73 [facility] 2021-08-10 08:51:00 Inpatient [facility] [id number] 73 [facility] 2024-08-09 10:00:00 2024-08-09 10:00:00 Outpatient MACKENZIE PAGAN [facility] [id number] [facility] 2024-06-18 09:00:00 2024-06-18 09:00:00 Outpatient DAYTON DU [facility] [id number] [facility] 2024-06-09 15:30:00 2024-06-09 15:30:00 Outpatient JEANMARIE CESAR [facility] [id number] [facility] 2024-05-19 00:00:00 2024-05-19 12:56:49 Letter (Out) [facility] 1.2.840.114 350.1.13.10 4.2.7.2.686 [id number] [facility] 2024-05-13 00:00:00 2024-05-13 15:50:05 Telephone Shon [facility] 1.2.840.114 350.1.13.10 4.2.7.2.686 [id number] 044 [id number] [facility] 2024-05-12 00:00:00 2024-05-13 07:20:18 Telephone [facility] 1.2.840.114 350.1.13.10 4.2.7.2.686 [id number] [facility] 2024-05-11 10:00:00 2024-05-11 11:12:46 Outpatient JEANMARIE CESAR [facility] [id number] [facility] 2024-05-11 10:00:00 2024-05-11 11:12:46 [facility] 1.2.840.114 350.1.13.10 4.2.7.2.686 [id number] [facility] 2024-04-28 12:15:00 2024-04-28 12:46:28 Outpatient R SHONNGHIA [facility] [id number] [facility] 2024-04-28 12:15:00 2024-04-28 12:30:00 [facility] 1.2.840.114 350.1.13.10 4.2.7.2.686 [id number] [facility] 2024-04-12 00:00:00 2024-04-14 06:18:02 [facility] 1.2840.114 350.1.13.10 4.2.7.2.686 [id number] [id number] [facility] 2024-04-12 00:00:00 2024-04-13 06:45:07 Refill Shon [facility] JERALD?[facility] 1.2840.114 350.1.13.10 4.2.7.2.686 [id number] [id number] [facility] 2024-04-12 12:30:00 2024-04-12 12:35:13 Outpatient R NGHIA MENENDEZ [facility] [id number] [facility] 2024-04-12 12:30:00 2024-04-12 12:35:13 Associate Publisher Visit Lab, Vipin Garland Shon [facility] JERALD?[facility] 1.2.840.114 350.1.13.10 4.2.7.2.686 [id number] [facility] 2024-04-12 12:15:00 2024-04-12 12:30:00 Office Visit Shon [facility] JERALD?[facility] 1.2840.114 350.1.13.10 4.2.7.2.686 [id number] [facility] 2024-04-08 11:40:00 2024-04-08 13:59:00 Emergency X GURU MEZA [facility] ERT [id number] [facility] 2024-04-08 11:40:00 2024-04-08 13:59:00 Emergency Guru Meza [facility] 1.2.840.114 350.1.13.10 4.2.7.2.686 [id number] [facility] 2024-04-02 00:00:00 2024-04-06 10:07:05 [facility] 1.2.840.114 350.1.13.10 4.2.7.2.686 [id number] [facility] 2024-03-20 00:00:00 2024-03-20 00:00:00 Refill Shon [facility] JERALD?[facility] 1.2.840.114 350.1.13.10 4.2.7.2.686 [id number] [id number] [facility] 2024-03-18 10:00:00 2024-03-18 10:15:00 Office Visit Shon [facility] JERALD?[facility] 1.2.840.114 350.1.13.10 4.2.7.2.686 [id number] [id number] [facility] 2024-03-18 10:00:00 2024-03-18 10:00:00 Outpatient R NGHIA MENENDEZ [facility] [id number] [facility] 2024-03-16 00:00:00 2024-03-16 00:00:00 Telephone Shon [facility] JERALD?[facility] 1.2.840.114 350.1.13.10 4.2.7.2.686 [id number] [facility] 2024-03-15 12:30:00 2024-03-15 13:19:21 Outpatient R NGHIA MENENDEZ [facility] [id number] [facility] 2024-03-15 12:30:00 2024-03-15 13:19:21 Office Visit Nghia Menendez [facility] 1.2.840.114 350.1.13.10 4.2.7.2.686 [id number] [facility] 2024-03-15 08:45:00 2024-03-15 08:45:00 Outpatient R NGHIA MENENDEZ [facility] [id number] [facility] 2024-03-15 00:00:00 2024-03-15 00:00:00 Refill Nghia Menendez [facility] 1..840.114 350.1.13.10 4.2.7.2.686 [id number] [facility] 2024-03-15 00:00:00 2024-03-15 00:00:00 Telephone Nghia Menendez [facility] 1.840.114 350.1.13.10 4.2.7.2.686 [id number] [facility] 2024-03-13 00:00:00 2024-03-13 00:00:00 Telephone Nghia Menendez [facility] 1.840.114 350.1.13.10 4.2.7.2.686 [id number] [facility] 2024-03-13 00:00:00 2024-03-13 00:00:00 Refill Nghia Menendez [facility] 1.2.840.114 350.1.13.10 4.2.7.2.686 [id number] [facility] 2024-02-11 00:00:00 2024-02-11 00:00:00 Telephone Nghia Menendez [facility] [id number] 350.1.13.10 4.2.7.2.686 [id number] [facility] 2024-01-14 09:30:00 2024-01-14 10:15:26 Office Visit Nghia Menendez [facility] 1.84114 350.1.13.10 4.2.7.2.686 [id number] [facility] 2024-01-14 09:30:00 2024-01-14 09:30:00 Outpatient R NGHIA MENENDEZ [facility] [id number] [facility] 2023-12-15 09:30:00 2023-12-15 09:45:00 [facility] 1.114 350.1.13.10 4.2.7.2.686 [id number] [facility] 2023-12-15 09:30:00 2023-12-15 09:30:00 Outpatient R NGHIA MENENDEZ [facility] [id number] [facility] 2023-11-12 09:30:00 2023-11-12 09:45:00 Office Visit Nghia Menendez [facility] 1.84.114 350.1.13.10 4.2.7.2.686 [id number] [facility] 2023-11-12 09:30:00 2023-11-12 09:30:00 Outpatient R NGHIA MENENDEZ [facility] [id number] [facility] 2023-10-30 00:00:00 2023-10-30 00:00:00 Telephone Nghia Menendez [facility] 1.84.114 350.1.13.10 4.2.7.2.686 [id number] [id number] [facility] 2023-10-30 00:00:00 2023-10-30 00:00:00 Orders Only Doctor Unassigned, [place] [facility] 1.2840.114 350.1.13.10 4.2.7.2.686 [id number] [facility] 2023-10-10 00:00:00 2023-10-10 00:00:00 [facility] 1.2840.114 350.1.13.10 4.2.7.2.686 [id number] [facility] 2023-10-09 00:00:00 2023-10-09 00:00:00 [facility] 1.2840.114 350.1.13.10 4.2.7.2.686 [id number] [facility] 2023-10-09 00:00:00 2023-10-09 00:00:00 Refill Shon [facility] JERALD?[facility] 1.2840.114 350.1.13.10 4.2.7.2.686 [id number] 044 [id number] [facility] 2023-10-06 00:00:00 2023-10-06 00:00:00 Refill [facility] 1.2840.114 350.1.13.10 4.2.7.2.686 [id number] [facility] 2023-10-06 00:00:00 2023-10-06 00:00:00 Refill Shon [facility] JERALD?[facility] 1.2840.114 350.1.13.10 4.2.7.2.686 [id number] [facility] 2023-10-06 00:00:00 2023-10-06 00:00:00 Telephone Nghia Menendez [facility] JERALD?[facility] 1..840.114 350.1.13.10 4.2.7.2.686 [id number] [id number] [facility] 2023-10-02 12:45:00 2023-10-02 13:00:00 [facility] 1..840.114 350.1.13.10 4.2.7.2.686 [id number] [facility] 2023-10-02 12:45:00 2023-10-02 12:45:00 Outpatient R SHON NGHIA [facility] [id number] [facility] 2023-09-29 02:16:00 2023-09-29 07:39:00 Emergency X CHAY WEEKS [facility] ERT [id number] [facility] 2023-09-29 02:16:00 2023-09-29 07:39:00 Emergency Chay Weeks S [facility] 1..840.114 350.1.13.10 4.2.7.2.686 [id number] [facility] 2023-09-19 09:00:00 2023-09-19 09:00:00 Outpatient ALTON VIDES SHIWAN [facility] [id number] [facility] 2023-09-17 10:00:00 2023-09-17 10:00:00 Outpatient R NGHIA MENENDEZ [facility] [id number] [facility] 2023-09-16 00:00:00 2023-09-16 00:00:00 [facility] 1..840.114 350.1.13.10 4.2.7.2.686 [id number] [facility] 2023-09-15 00:00:00 2023-09-15 00:00:00 Telephone Nghia Menendez [facility] 1.2.840.114 350.1.13.10 4.2.7.2.686 [id number] [facility] 2023-09-11 00:00:00 2023-09-11 00:00:00 Refill Nghia Menendez [facility] JERALD?[facility] 1.2.840.114 350.1.13.10 4.2.7.2.686 [id number] [id number] [facility] 2023-09-09 00:00:00 2023-09-09 00:00:00 Telephone Nghia Menendez [facility] JERALD?[facility] 1.2840.114 350.1.13.10 4.2.7.2.686 [id number] [facility] 2023-09-08 00:00:00 2023-09-08 00:00:00 Refill Shon [facility] JERALD?SUSANA [facility] 1.2.840.114 350.1.13.10 4.2.7.2.686 [id number] [facility] 2023-09-04 12:00:00 2023-09-04 12:00:00 Outpatient R NGHIA MENENDEZ [facility] [id number] [facility] 2023-09-04 12:00:00 2023-09-04 12:00:00 [facility] 1.2.840.114 350.1.13.10 4.2.7.2.686 [id number] [facility] 2023-09-04 09:30:00 2023-09-04 09:30:00 Outpatient R NGHIA MENENDEZ [facility] [id number] [facility] 2023-09-04 00:00:00 2023-09-04 00:00:00 Telephone [facility] 1.2.840.114 350.1.13.10 4.2.7.2.686 [id number] [facility] 2023-08-20 10:00:00 2023-08-20 10:00:00 Outpatient R SUGARAMINTA ELLIE [facility] [id number] [facility] 2023-08-15 00:00:00 2023-08-15 00:00:00 Refill Shon [facility] OFF[facility] BUILDING 1.2.840.114 350.1.13.10 4.2.7.2.686 [id number] [facility] 2023-08-11 11:00:00 2023-08-11 11:13:55 [id number] 2023-08-11 11:00:00 2023-08-11 11:13:55 [facility] 1.2.840.114 350.1.13.10 4.2.7.2.686 [id number] [facility] 2023-08-08 08:00:00 2023-08-08 08:00:00 Outpatient R [facility] [id number] [facility] 2023-08-06 10:00:00 2023-08-06 10:27:52 Outpatient R NGHIA MENENDEZ [facility] [id number] [facility] 2023-08-06 10:00:00 2023-08-06 10:15:00 [facility] 1.2.840.114 350.1.13.10 4.2.7.2.686 [id number] [facility] 2023-07-29 08:45:00 2023-07-29 08:45:00 Outpatient R YARI HORNE [facility] [id number] [facility] 2023-07-09 15:00:00 2023-07-09 15:25:34 Outpatient R MENENDEZ NGHIA [facility] [id number] [facility] 2023-07-09 15:00:00 2023-07-09 15:25:34 [facility] OFF[facility] BUILD[facility] 1.2.840.114 350.1.13.10 4.2.7.2.686 [id number] [facility] [facility] 2023-06-25 00:00:00 2023-06-25 00:00:00 Patient Secure Msg Doctor Unassigned, [place] 08362.2840.114 350.1.13.10 4.2.7.2.686 [id number] [facility] 2023-06-24 00:00:00 2023-06-24 00:00:00 Refill Alton Reyes [facility] 1.2.840.114 350.1.13.10 4.2.7.2.686 [id number] [facility] 2023-06-24 00:00:00 2023-06-24 00:00:00 Orders Only Doctor Unassigned, [place] [facility] 1.2840.114 350.1.13.10 4.2.7.2.686 [id number] [facility] 2023-06-20 10:00:00 2023-06-20 10:04:10 Outpatient R ALTON REYES SHIWAN [facility] [id number] [facility] 2023-06-20 10:00:00 2023-06-20 10:04:10 Office Visit Alton Reyes [facility] BUILDING 1.2840.114 350.1.13.10 4.2.7.2.686 [id number] [id number] [facility] 2023-06-18 00:00:00 2023-06-18 00:00:00 Patient Secure Msg Doctor Unassigned, [place] [facility] 1.2840.114 350.1.13.10 4.2.7.2.686 [id number] [facility] 2023-06-16 00:00:00 2023-06-16 00:00:00 Telephone Shon [facility] JERALD?SUSANA [facility] BUILDING 1.2840.114 350.1.13.10 4.2.7.2.686 [id number] 044 [id number] [facility] 2023-06-16 00:00:00 2023-06-16 00:00:00 Patient Secure Msg Doctor Unassigned, [place] [facility] 1.2840.114 350.1.13.10 4.2.7.2.686 [id number] [id number] [facility] 2023-06-10 00:00:00 2023-06-10 00:00:00 Telephone Menendez, [facility] JERALD?PRACHIG[facility]ia [facility] 1.2840.114 350.1.13.10 4.2.7.2.686 [id number] 044 [id number] [facility] 2023-06-10 00:00:00 2023-06-10 00:00:00 Telephone Menendez [facility] JERALD?SUSANA [facility] 1.2840.114 350.1.13.10 4.2.7.2.686 [id number] 044 [id number] [facility] 2023-06-10 00:00:00 2023-06-10 00:00:00 Patient Secure Msg Doctor Unassigned, [place] [facility] BUILD[facility] 1.84.114 350.1.13.10 4.2.7.2.686 [id number] 044 [id number] [facility] 2023-06-09 12:30:00 2023-06-09 13:25:02 Outpatient R NGHIA MENENDEZ [facility] [id number] [facility] 2023-06-09 12:30:00 2023-06-09 13:25:02 Office [facility] BUILDING 1.840.114 350.1.13.10 4.2.7.2.686 [id number] [id number] [facility] 2023-05-30 00:00:00 2023-05-30 00:00:00 Orders Only Doctor Unassigned, [place] [facility] 1..114 350.1.13.10 4.2.7.2.686 [id number] [facility] 2023-05-28 00:00:00 2023-05-28 00:00:00 Refill Shon [facility] OFF[facility] BUILDING 1.84.114 350.1.13.10 4.2.7.2.686 [id number] [id number] [facility] 2023-05-23 00:00:00 2023-05-23 00:00:00 Outpatient R ELLIE DELUCA [facility] [id number] [facility] 2023-05-07 00:00:00 2023-05-07 00:00:00 [facility] N[facility] 1.840.114 350.1.13.10 4.2.7.2.686 [id number] [facility] 2023-04-23 00:00:00 2023-04-23 00:00:00 Outpatient R MAMIE BARBOZA [facility] [id number] [facility] 2023-04-19 00:00:00 2023-04-19 00:00:00 Telephone Kiera Handy [facility] JERALD?[facility] 1.84.114 350.1.13.10 4.2.7.2.686 [id number] [facility] 2023-04-17 11:30:00 2023-04-17 11:45:00 Associate Publisher Visit 2, Adc Lab AdEllie call [facility] BUILDING 1..114 350.1.13.10 4.2.7.2.686 [id number] [facility] 2023-04-17 10:00:00 2023-04-17 11:06:42 Outpatient R SANDRINE [facility] [id number] [facility] 2023-04-17 10:00:00 2023-04-17 11:06:42 Office Visit [facility] BUILDING 1.84.114 350.1.13.10 4.2.7.2.686 [id number] [facility] 2023-04-16 00:00:00 2023-04-16 00:00:00 Patient Outreach Quentin Heather Shani [facility] JERALD?SUSANA [facility] MED[facility] OFFICE BUILDING 1.84.114 350.1.13.10 4.2.7.2.686 [id number] [id number] [facility] 2023-04-16 00:00:00 2023-04-16 00:00:00 Telephone Nghia Menendez [facility] JERALD?[facility] 1.840.114 350.1.13.10 4.2.7.2.686 [id number] [id number] [facility] 2023-04-15 14:20:00 2023-04-15 14:40:00 Urgent Care Prosper Sims Unknown, Attending [facility] 1.840.114 350.1.13.10 4.2.7.2.686 [id number] [facility] 2023-04-15 14:20:00 2023-04-15 14:20:00 Outpatient R PROSPER SIMS [facility] [id number] [facility] 2023-04-13 17:56:00 2023-04-13 19:44:00 Emergency X ELIZABETH DERECK ELIZABETH DREECK [facility] ERT [id number] [facility] 2023-04-13 17:56:00 2023-04-13 19:44:00 Emergency Dereck Johnson [facility] 1.0.114 350.1.13.10 4.2.7.2.686 [id number] [facility] 2023-04-09 21:07:00 2023-04-09 21:49:00 Emergency X MELLY, [facility] ERT [id number] [facility] 2023-04-09 21:07:00 2023-04-09 21:49:00 Emergency [place], [facility] 1.0.114 350.1.13.10 4.2.7.2.686 [id number] [id number] [facility] 2023-04-09 00:00:00 2023-04-09 00:00:00 Telephone Nghia Menendez [facility]?SUSANA [facility] MED[facility] OFF[facility] BUILDING 1.840.114 350.1.13.10 4.2.7.2.686 [id number] 044 [id number] [facility] 2023-04-08 16:05:00 2023-04-08 23:59:00 Outpatient R TAMRA MAMIE [facility] [id number] [facility] 2023-04-08 15:45:00 2023-04-08 16:00:00 Office Visit [facility]ie Barbo[facility] 1.2.840.114 350.1.13.10 4.2.7.2.686 [id number] [facility] 2023-03-28 00:00:00 2023-03-28 00:00:00 Telephone Nghia Menendez [facility] NAL BUILDING 1.2.840.114 350.1.13.10 4.2.7.2.686 [id number] [id number] [facility] 2023-03-28 00:00:00 2023-03-28 00:00:00 Telephone Nghia Menendez [facility] BU[facility] 1.2.840.114 350.1.13.10 4.2.7.2.686 [id number] 044 [id number] [facility] 2023-03-27 09:30:00 2023-03-27 09:30:00 Outpatient NGHIA MENDES [facility] [id number] [facility] 2023-03-26 15:00:00 2023-03-26 15:15:00 Office Visit Nghia Menendez [facility] OFFICE BUILDING 1.2.840.114 350.1.13.10 4.2.7.2.686 [id number] [facility] 2023-03-26 15:00:00 2023-03-26 15:00:00 Outpatient R NGHIA MENENDEZ [facility] [id number] [facility] 2023-03-26 08:30:00 2023-03-26 08:30:00 Outpatient NGHIA MENDES [facility] [id number] [facility] 2023-03-20 07:30:00 2023-03-20 07:30:00 Outpatient R NGHIA MENENDEZ [facility] [id number] [facility] 2023-03-17 00:00:00 2023-03-17 00:00:00 [facility] BUILDING 1.2840.114 350.1.13.10 4.2.7.2.686 [id number] 044 [id number] [facility] 2023-03-05 00:00:00 2023-03-05 00:00:00 [facility] BUILDING 1.2840.114 350.1.13.10 4.2.7.2.686 [id number] 044 [id number] [facility] 2023-03-05 00:00:00 2023-03-05 00:00:00 Telephone [facility]on [facility] BUILDING 1.2840.114 350.1.13.10 4.2.7.2.686 [id number] 044 [id number] [facility] 2023-03-03 00:00:00 2023-03-03 00:00:00 Refill Ngiha Menendez [facility] JERALD?[facility] OFF[facility] BUILDING 1.2840.114 350.1.13.10 4.2.7.2.686 [id number] 044 [id number] [facility] 2023-02-28 00:00:00 2023-02-28 00:00:00 Refill [facility] MED[facility] OFF[facility] BUILDING 1.2840.114 350.1.13.10 4.2.7.2.686 [id number] [id number] [facility] 2023-02-27 10:30:00 2023-02-27 12:21:16 Outpatient WALT BURTONIG [facility] [id number] [facility] 2023-02-27 10:30:00 2023-02-27 12:21:16 Office Visit Mamie Barbozaonald Chong Shani [facility]?SUSANA [facility] MEDICAL OFFICE BUILDING 1.84.114 350.1.13.10 4.2.7.2.686 [id number] [facility] 2023-02-24 12:15:00 2023-02-24 12:15:00 Outpatient R SHON [facility] [id number] [facility] 2023-02-24 11:30:00 2023-02-24 12:04:36 Outpatient R NGHIA MENENDEZ [facility] [id number] [facility] 2023-02-24 11:30:00 2023-02-24 12:04:36 [facility] MED[facility] OFF[facility] BUILDING 1..114 350.1.13.10 4.2.7.2.686 [id number] [id number] [facility] 2023-02-19 10:33:00 2023-02-19 14:10:00 Emergency X SANDRA ANDRADE [facility] ERT [id number] [facility] 2023-02-19 10:33:00 2023-02-19 14:10:00 Emergency Sandra Andrade F [facility] 1..114 350.1.13.10 4.2.7.2.686 [id number] [id number] [facility] 2023-02-07 08:15:00 2023-02-07 08:30:00 Associate Publisher Visit Lab, Vipin Menendez [facility]?SUSANA [facility] MEDICAL OFFICE BUILDING 1.84.114 350.1.13.10 4.2.7.2.686 [id number] [facility] 2023-02-07 08:15:00 2023-02-07 08:15:00 Outpatient R NGHIA MENENDEZ [facility] [id number] [facility] 2023-02-04 09:45:00 2023-02-04 09:45:00 Outpatient R NGHIA MENENDEZ [facility] [id number] [facility] 2023-02-03 14:00:00 2023-02-03 14:15:00 Office Visit Menendez Nghia [facility] JERALD?SUSANA [facility] MEDICAL OFFICE BUILDING 1..840.114 350.1.13.10 4.2.7.2.686 [id number] [id number] [facility] 2023-02-03 14:00:00 2023-02-03 14:00:00 Outpatient R NGHIA MENENDEZ [facility] [id number] [facility] 2023-02-03 00:00:00 2023-02-03 00:00:00 Orders Only Doctor Unassigned, [place] [facility] 1.2840.114 350.1.13.10 4.2.7.2.686 [id number] [facility] 2023-01-28 00:00:00 2023-01-28 00:00:00 Refill Shon [facility] JERALD?[facility] MEDICAL OFFICE BUILDING 1.2.840.114 350.1.13.10 4.2.7.2.686 [id number] 044 [id number] [facility] 2023-01-02 00:00:00 2023-01-02 00:00:00 Telephone Shon Nghia [facility] MED[facility] OFFICE BUILDING 1.2.840.114 350.1.13.10 4.2.7.2.686 [id number] 044 [id number] [facility] 2022-12-31 00:00:00 2022-12-31 00:00:00 Refill Shon [facility] MED[facility] OFF[facility] BUILDING 1.2.840.114 350.1.13.10 4.2.7.2.686 [id number] 044 [id number] [facility] 2022-12-30 12:30:00 2022-12-30 12:45:00 Office Visit Shon Nghia [facility] OFF[facility] BUILDING 1.2.840.114 350.1.13.10 4.2.7.2.686 [id number] 044 [id number] [facility] 2022-12-30 12:30:00 2022-12-30 12:30:00 Outpatient NGHIA MENDES [facility] [id number] [facility] 2022-12-18 00:00:00 2022-12-18 00:00:00 Telephone Shon [facility] MEDICAL OFFICE BUILDING 1.2.840.114 350.1.13.10 4.2.7.2.686 [id number] 044 [id number] [facility] 2022-12-11 00:00:00 2022-12-11 00:00:00 Orders Only Doctor Unassigned, [place] [facility] 1.2.840.114 350.1.13.10 4.2.7.2.686 [id number] [facility] 2022-12-10 15:00:00 2022-12-10 15:00:00 Outpatient MEAGHAN MOSELEY [facility] [id number] [facility] 2022-11-28 13:00:00 2022-11-28 13:00:00 Outpatient NGHIA MENDES [facility] [id number] [facility] 2022-11-27 13:45:00 2022-11-27 14:14:10 Outpatient NGHIA MENDES [facility] [id number] [facility] 2022-11-27 13:45:00 2022-11-27 14:00:00 [facility] BUILD[facility] 1.114 350.1.13.10 4.2.7.2.686 [id number] [id number] [facility] 2022-11-25 00:00:00 2022-11-25 00:00:00 Telephone Nghia Menendez [facility] JERALD?[facility] BUILDING 1.114 350.1.13.10 4.2.7.2.686 [id number] [id number] [facility] 2022-11-22 00:00:00 2022-11-22 00:00:00 Orders Only Doctor Unassigned, [place] [facility] 1.114 350.1.13.10 4.2.7.2.686 [id number] [facility] 2022-11-12 00:00:00 2022-11-12 00:00:00 [facility] [id number] 2022-10-30 10:20:00 2022-10-30 11:17:22 Out[facility] [id number] [facility] 2022-10-30 10:20:00 2022-10-30 11:17:22 [facility] 1.114 350.1.13.10 4.2.7.2.686 [id number] [facility] 2022-10-28 13:15:00 2022-10-28 13:32:14 Outpatient R NGHIA MENENDEZ [facility] [id number] [facility] 2022-10-28 13:15:00 2022-10-28 13:30:00 [facility] BUILDING 1.84114 350.1.13.10 4.2.7.2.686 [id number] [id number] [facility] 2022-10-01 00:00:00 2022-10-01 00:00:00 Telephone Heather Saavedra [facility] JERALD?SUSANA [facility] MEDICAL OFFICE BUILDING 1.84.114 350.1.13.10 4.2.7.2.686 [id number] [id number] [facility] 2022-09-26 00:00:00 2022-09-26 00:00:00 Patient Outreach Heather Saavedra [facility] OFF[facility] BUILDING 1..114 350.1.13.10 4.2.7.2.686 [id number] [id number] [facility] 2022-09-25 13:00:00 2022-09-25 13:15:00 Office Visit Nghia Menendez [facility] OFF[facility] BUILDING 1.84.114 350.1.13.10 4.2.7.2.686 [id number] [facility] 2022-09-25 13:00:00 2022-09-25 13:00:00 Outpatient NGHIA MENDES [facility] [id number] [facility] 2022-09-25 00:00:00 2022-09-25 00:00:00 Orders Only Doctor Unassigned, [place] [facility] 1.114 350.1.13.10 4.2.7.2.686 [id number] [facility] 2022-09-02 14:00:00 2022-09-02 14:26:56 Outpatient NGHIA MENDES [facility] [id number] [facility] 2022-09-02 14:00:00 2022-09-02 14:15:00 [facility] BUILDING 1.84.114 350.1.13.10 4.2.7.2.686 [id number] [id number] [facility] 2022-09-02 00:00:00 2022-09-02 00:00:00 Telephone Nghia Menendez [facility] OFF[facility] BUILDING 1..840.114 350.1.13.10 4.2.7.2.686 [id number] 044 [id number] [facility] 2022-09-01 08:47:00 2022-09-01 14:18:00 Emergency X DEIDRA MEEK [facility] ERT [id number] [facility] 2022-09-01 08:47:00 2022-09-01 14:18:00 Emergency Deidra Meek [facility] 1..840.114 350.1.13.10 4.2.7.2.686 [id number] [facility] 2022-08-21 15:00:00 2022-08-21 15:00:00 Outpatient R MEDINA RUTHIE [facility] [id number] [facility] 2022-08-06 00:00:00 2022-08-06 00:00:00 Telephone Nghia Menendez [facility] OFF[facility] BUILDING 1..840.114 350.1.13.10 4.2.7.2.686 [id number] [facility] 2022-07-03 15:15:00 2022-07-03 15:52:50 Outpatient R NGHIA MENENDEZ [facility] [id number] [facility] 2022-07-03 15:15:00 2022-07-03 15:30:00 Office Visit Shon [facility] MED[facility] OFFICE BUILDING 1..840.114 350.1.13.10 4.2.7.2.686 [id number] [facility] 2022-07-03 15:15:00 2022-07-03 15:15:00 Outpatient R NGHIA MENENDEZ [facility] [id number] [facility] 2022-07-03 00:00:00 2022-07-03 00:00:00 Patient Secure Msg Doctor Unassigned, [place] [facility] 1.20.114 350.1.13.10 4.2.7.2.686 [id number] [facility] 2022-06-28 00:00:00 2022-06-28 00:00:00 Patient Secure Msg Doctor Unassigned, [place] [facility] 1.0.114 350.1.13.10 4.2.7.2.686 [id number] [facility] 2022-06-26 08:47:07 2022-06-26 23:59:00 Hospital Encounter [facility] 1..114 350.1.13.10 4.2.7.2.686 [id number] [facility] 2022-06-26 08:46:05 2022-06-26 08:46:00 Outpatient R LAYNE WEIR [facility] [id number] [facility] 2022-06-26 08:30:00 2022-06-26 08:46:00 Hospital Encounter Dangelo, [facility] 1..114 350.1.13.10 4.2.7.2.686 [id number] [facility] 2022-06-18 00:00:00 2022-06-18 00:00:00 Case Management Dangelo [facility] 1..114 350.1.13.10 4.2.7.2.686 [id number] [facility] 2022-06-11 00:00:00 2022-06-11 00:00:00 Telephone Ruthie Haney [facility] 1.84114 350.1.13.10 4.2.7.2.686 [id number] [facility] 2022-06-10 11:03:40 2022-06-10 23:59:00 Outpatient R ISABELLE PRECIADO [facility] [id number] [facility] 2022-06-10 10:00:00 2022-06-10 23:59:00 Hospital Encounter MillieIsabelle, [facility] 1.114 350.1.13.10 4.2.7.2.686 [id number] [facility] 2022-06-06 00:00:00 2022-06-06 00:00:00 Case Management Mikael Shafer [facility] 1.114 350.1.13.10 4.2.7.2.686 [id number] [facility] 2022-06-05 09:46:00 2022-06-05 13:39:00 Emergency X SINGER GURU [facility] ERT [id number] [facility] 2022-06-05 09:46:00 2022-06-05 13:39:00 Emergency Richie Mezaip [facility] 1.114 350.1.13.10 4.2.7.2.686 [id number] [facility] 2022-04-05 00:00:00 2022-04-05 00:00:00 Telephone Ruthie Haney [facility] JERALD?[facility] OFF[facility] BUILDING 1..114 350.1.13.10 4.2.7.2.686 [id number] [id number] [facility] 2022-04-02 00:00:00 2022-04-02 00:00:00 Refill Ruthie Haney [facility] OFF[facility] BUILDING 1.2.840.114 350.1.13.10 4.2.7.2.686 [id number] [id number] [facility] 2022-03-28 00:00:00 2022-03-28 00:00:00 Orders Only Doctor Unassigned, [place] [facility] 1.2.840.114 350.1.13.10 4.2.7.2.686 [id number] [facility] 2022-03-27 00:00:00 2022-03-27 00:00:00 Telephone Ruthie Haney [facility] 1.2.840.114 350.1.13.10 4.2.7.2.686 [id number] [facility] 2022-03-14 11:15:00 2022-03-14 11:30:00 Office Visit Mamie Barboza [facility] 1.2.840.114 350.1.13.10 4.2.7.2.686 [id number] [facility] 2022-03-14 11:15:00 2022-03-14 11:15:00 Outpatient MAMIE MOREJON [facility] [id number] [facility] 2022-03-14 11:15:00 2022-03-14 11:15:00 Outpatient MAMIE MOREJON [facility] [id number] [facility] 2022-03-13 09:00:00 2022-03-13 09:00:00 Outpatient ROSY CARLSON [facility] [id number] [facility] 2022-03-13 09:00:00 2022-03-13 09:00:00 Outpatient ROSY CARLSON [facility] [id number] [facility] 2022-03-13 00:00:00 2022-03-13 00:00:00 Telephone Chong Bailey [facility] 1.2840.114 350.1.13.10 4.2.7.2.686 [id number] [facility] 2022-03-11 00:00:00 2022-03-11 00:00:00 Orders Only Doctor Unassigned, [place] [facility] 1.2.840.114 350.1.13.10 4.2.7.2.686 [id number] [facility] 2022-03-07 00:00:00 2022-03-07 00:00:00 Telephone Bailey Chong Shani [facility] 1.2840.114 350.1.13.10 4.2.7.2.686 [id number] [facility] 2022-03-06 00:00:00 2022-03-06 00:00:00 Telephone Mamie Barboza [facility] 1.2840.114 350.1.13.10 4.2.7.2.686 [id number] [facility] 2022-03-06 00:00:00 2022-03-06 00:00:00 Telephone Chong Bailey [facility] 1.2840.114 350.1.13.10 4.2.7.2.686 [id number] [facility] 2022-03-01 00:00:00 2022-03-01 00:00:00 Telephone Ruthie Haney [facility] 1.2840.114 350.1.13.10 4.2.7.2.686 [id number] [facility] 2022-02-28 00:00:00 2022-02-28 00:00:00 Telephone Chong Bailey [facility] OFF[facility] 1.840.114 350.1.13.10 4.2.7.2.686 [id number] [facility] 2022-02-27 00:00:00 2022-02-27 00:00:00 Outpatient R LEO CHONG [facility] NUT [id number] [facility] 2022-02-27 00:00:00 2022-02-27 00:00:00 Orders Only Doctor Unassigned, [place] [facility] 1.84.114 350.1.13.10 4.2.7.2.686 [id number] [facility] 2022-02-26 00:00:00 2022-02-26 00:00:00 Telephone Chong Bailey [facility] OFF[facility] 1.84.114 350.1.13.10 4.2.7.2.686 [id number] [facility] 2022-02-20 10:27:42 2022-02-20 23:59:00 Outpatient R LEO CHONG [facility] [id number] [facility] 2022-02-20 10:27:42 2022-02-20 23:59:00 Hospital Encounter Chong Bailey [facility] 1.84.114 350.1.13.10 4.2.7.2.686 [id number] [facility] [facility] 2022-02-20 11:15:00 2022-02-20 11:30:00 Associate Publisher Visit Pob, Adc Lab Main Chong Bailey [facility] PROFESSIO NAL BUILDING 1.84.114 350.1.13.10 4.2.7.2.686 [id number] [facility] 2022-02-20 00:00:00 2022-02-20 00:00:00 Telephone Chong Bailey [facility] JERALD?[facility] OFF[facility] BUILDING 1.2.840.114 350.1.13.10 4.2.7.2.686 [id number] [facility] 2022-02-20 00:00:00 2022-02-20 00:00:00 Orders Only Doctor Unassigned, [place] [facility] 1.2840.114 350.1.13.10 4.2.7.2.686 [id number] [facility] 2022-02-18 14:30:00 2022-02-18 14:26:49 Outpatient R CHONG BAILEY [facility] [id number] [facility] 2022-02-18 00:00:00 2022-02-18 00:00:00 Telephone Chong Bailey [facility] JERALD?[facility] OFF[facility] BUILDING 1.2.840.114 350.1.13.10 4.2.7.2.686 [id number] [facility] 2022-02-11 00:00:00 2022-02-11 00:00:00 Telephone MedinaRuthie [facility] JERALD?[facility] OFF[facility] BUILDING 1.2.840.114 350.1.13.10 4.2.7.2.686 [id number] [facility] 2022-02-01 00:00:00 2022-02-01 00:00:00 Telephone BaileyChong dias Shani [facility] JERALD?[facility] BUILDING 1.2.840.114 350.1.13.10 4.2.7.2.686 [id number] [facility] 2022-01-31 09:28:33 2022-01-31 23:59:00 Outpatient R CHONG BAILEY [facility] [id number] [facility] 2022-01-31 09:28:33 2022-01-31 23:59:00 Hospital Encounter Chong Bailey [facility] 1.2840.114 350.1.13.10 4.2.7.2.686 [id number] [facility] 2022-01-30 00:00:00 2022-01-30 00:00:00 Orders Only Doctor Unassigned, [place] [facility] 1.2840.114 350.1.13.10 4.2.7.2.686 [id number] [facility] 2022-01-27 21:17:00 2022-01-27 23:49:00 Emergency X SANDRA ANDRADE [facility] ERT [id number] [facility] 2022-01-27 21:17:00 2022-01-27 23:49:00 Emergency Sandra Andrade [facility] 1.2840.114 350.1.13.10 4.2.7.2.686 [id number] [facility] 2022-01-24 00:00:00 2022-01-24 00:00:00 Telephone Chong Bailey [facility] BUILDING 1.2840.114 350.1.13.10 4.2.7.2.686 [id number] [facility] 2022-01-11 00:00:00 2022-01-11 00:00:00 Telephone Chong Bailey [facility] BUILDING 1.2840.114 350.1.13.10 4.2.7.2.686 [id number] [facility] 2022-01-10 12:24:00 2022-01-10 13:44:00 Emergency X REKHA CHAU [facility] ERT [id number] [facility] 2022-01-10 12:24:00 2022-01-10 13:44:00 Emergency ChauRekha adames [facility] 1.2.840.114 350.1.13.10 4.2.7.2.686 [id number] [facility] 2022-01-10 00:00:00 2022-01-10 00:00:00 Patient Secure Msg Doctor Unassigned, [place] [facility] 1.2.840.114 350.1.13.10 4.2.7.2.686 [id number] [facility] 2022-01-07 14:55:00 2022-01-07 23:59:00 Hospital Encounter Chong Bailey [facility] MEDICAL OFFICE BUILDING 1.2.840.114 350.1.13.10 4.2.7.2.686 [id number] [facility] 2022-01-07 17:40:00 2022-01-07 18:00:00 Urgent Care Provider, [facility] Neli Baron [facility] BUILDING 1.2.840.114 350.1.13.10 4.2.7.2.686 [id number] [facility] 2022-01-07 16:00:00 2022-01-07 16:00:00 Office Visit Chong Bailey [facility] BUILDING 1.2.840.114 350.1.13.10 4.2.7.2.686 [id number] [facility] 2022-01-07 16:00:00 2022-01-07 15:12:51 Outpatient R CHONG BAILEY [facility] [id number] [facility] 2022-01-07 16:00:00 2022-01-07 15:12:51 Outpatient R CHONG BAILEY [facility] [id number] [facility] 2022-01-07 00:00:00 2022-01-07 00:00:00 Telephone Ruthie Haney [facility] BUILDING 1.2.840.114 350.1.13.10 4.2.7.2.686 [id number] [facility] 2022-01-03 00:00:00 2022-01-03 00:00:00 [facility] [id number] [facility] 2021-11-29 14:00:00 2021-11-29 14:00:00 Outpatient R KRISTIE [facility] [id number] [facility] 2021-11-20 00:00:00 2021-11-20 00:00:00 Telephone Ruthie Haney [facility] TRA[facility] OFFICE [facility] 1.2.840.114 350.1.13.10 4.2.7.2.686 [id number] [facility] 2021-11-12 00:00:00 2021-11-12 00:00:00 Telephone Chong Bailey [facility] JERALD?[facility] OFFICE [facility] 1.2.840.114 350.1.13.10 4.2.7.2.686 [id number] [facility] 2021-11-09 09:00:00 2021-11-09 09:00:00 Outpatient CHONG BURTON [facility] [id number] [facility] 2021-11-06 00:00:00 2021-11-06 00:00:00 Refill Mamie Barboza [facility] SURGICAL [facility] 1.2.840.114 350.1.13.10 4.2.7.2.686 [id number] [facility] 2021-11-06 00:00:00 2021-11-06 00:00:00 Refill Doctor Unassigned, [place] [facility]ICAL SPECIAL[facility] 1..840.114 350.1.13.10 4.2.7.2.686 [id number] [facility] 2021-11-05 15:54:00 2021-11-05 20:33:00 Emergency X DEIDRA MEEK [facility] ERT [id number] [facility] 2021-11-05 15:54:00 2021-11-05 20:33:00 Emergency Deidra Meek G [facility] 1..840.114 350.1.13.10 4.2.7.2.686 [id number] [facility] 2021-11-01 00:00:00 2021-11-01 00:00:00 Telephone Mamie Barboza [facility] [place] [facility] BUILDING 1..840.114 350.1.13.10 4.2.7.2.686 [id number] [facility] 2021-10-31 14:00:00 2021-10-31 14:00:00 Outpatient ROSY CARLSON [facility] [id number] [facility] 2021-10-22 00:00:00 2021-10-22 00:00:00 Refill Rosy Flowers [facility] 1..840.114 350.1.13.10 4.2.7.2.686 [id number] [facility] 2021-10-17 00:00:00 2021-10-17 00:00:00 Telephone Rosy Flowers [facility] BUILDING 1..840.114 350.1.13.10 4.2.7.2.686 [id number] [facility] 2021-10-11 00:00:00 2021-10-11 00:00:00 [facility] 1.2.840.114 350.1.13.10 4.2.7.2.686 [id number] [facility] 2021-10-04 10:45:44 2021-10-04 23:59:00 Hospital Encounter Rosy FlowersAllison [facility] BUILDING 1..840.114 350.1.13.10 4.2.7.2.686 [id number] [facility] 2021-10-04 10:30:00 2021-10-04 10:58:26 Outpatient R FLOWERSROSY [facility] [id number] [facility] 2021-10-04 10:30:00 2021-10-04 10:58:26 [id number] [facility] 2021-10-04 10:11:17 2021-10-04 10:58:26 Office Visit Valdo Flowerslorrie LoveAllison [facility] BUILDING 1..840.114 350.1.13.10 4.2.7.2.686 [id number] [facility] 2021-10-03 14:00:00 2021-10-03 14:23:38 Outpatient R MAMIE BARBOZA [facility] [id number] [facility] 2021-10-03 14:00:00 2021-10-03 14:23:38 Outpatient R MAMIE BARBOZA [facility] [id number] [facility] 2021-10-03 14:00:00 2021-10-03 14:23:38 Outpatient R MAMIE BARBOZA [facility] [id number] [facility] 2021-10-03 13:57:05 2021-10-03 14:23:38 [facility] 1.84.114 350.1.13.10 4.2.7.2.686 [id number] [facility] 2021-10-01 00:00:00 2021-10-01 00:00:00 Telephone Mamie Barboza [facility] BUILD[facility] 1.114 350.1.13.10 4.2.7.2.686 [id number] [facility] 2021-09-27 13:30:00 2021-09-27 13:30:00 Outpatient [facility] [id number] [facility] 2021-09-27 13:30:00 2021-09-27 13:30:00 Outpatient R KRISTIE [facility] [id number] [facility] 2021-09-25 10:12:06 2021-09-25 23:59:00 Outpatient R MAMIE BARBOZA [facility] [id number] [facility] 2021-09-25 10:12:06 2021-09-25 23:59:00 Hospital Encounter Tami Barbozatt [facility] 1.114 350.1.13.10 4.2.7.2.686 [id number] [facility] 2021-09-25 10:12:06 2021-09-25 23:59:00 Outpatient R MAMIE BARBOZA [facility] [id number] [facility] 2021-09-25 00:00:00 2021-09-25 00:00:00 Orders Only Doctor Unassigned, [place] [facility] 1.114 350.1.13.10 4.2.7.2.686 [id number] [facility] 2021-09-25 00:00:00 2021-09-25 00:00:00 Telephone Ruthie Haney [facility] MEDICAL OFFICE BUILDING 1..114 350.1.13.10 4.2.7.2.686 [id number] [facility] 2021-09-19 00:00:00 2021-09-19 00:00:00 Telephone Mamie Barboza [facility] Jerald?Susana farias Medical Office Building 1.2.840.114 350.1.13.10 4.2.7.2.686 [id number] [facility] 2021-09-18 00:00:00 2021-09-18 00:00:00 Patient Secure Msg Doctor Unassigned, [place] [facility] 1.2.840.114 350.1.13.10 4.2.7.2.686 [id number] [facility] 2021-09-15 00:00:00 2021-09-15 00:00:00 Telephone Ruthie Haney [facility] Medical Office Building 1..840.114 350.1.13.10 4.2.7.2.686 [id number] [facility] 2021-09-13 13:21:54 2021-09-13 13:51:54 Office Visit Mamie Barboza [facility] Jerald?Susana farias Medical Office Building 1..840.114 350.1.13.10 4.2.7.2.686 [id number] [facility] 2021-09-13 13:15:00 2021-09-13 13:49:15 Outpatient MAMIE MOREJON [facility] [id number] [facility] 2021-09-13 13:15:00 2021-09-13 13:49:15 Outpatient MAMIE MOREJON [facility] [id number] [facility] 2021-09-13 13:15:00 2021-09-13 13:49:15 Outpatient MAMIE MOREJON [facility] [id number] [facility] 2021-09-13 00:00:00 2021-09-13 00:00:00 Refill Ruthie Haney Gloria [facility]?Susana [facility] Medical Office Building 1..114 350.1.13.10 4.2.7.2.686 [id number] [facility] 2021-09-11 09:59:00 2021-09-11 11:16:00 Emergency Singer [facility] 1.114 350.1.13.10 4.2.7.2.686 [id number] [facility] 2021-09-11 09:59:00 2021-09-11 11:16:00 Emergency X GURU MEZA [facility] ERT [id number] [facility] 2021-09-11 09:59:00 2021-09-11 11:16:[address] [facility] ERT [id number] [facility] 2021-09-10 00:00:00 2021-09-10 00:00:00 Patient Secure Msg Doctor Unassigned, [place] [facility] 1.114 350.1.13.10 4.2.7.2.686 [id number] [facility] 2021-09-05 11:55:00 2021-09-05 14:02:00 Emergency Singer [facility] 1.114 350.1.13.10 4.2.7.2.686 [id number] [facility] 2021-09-05 09:17:56 2021-09-05 09:32:56 Associate Publisher Visit Lab, Vipin - Ruthie May [facility]?Susana [facility] Medical Office Building 1.114 350.1.13.10 4.2.7.2.686 [id number] [facility] 2021-09-05 08:00:00 2021-09-05 09:16:46 Outpatient R RUTHIE HANEY [facility] [id number] [facility] 2021-09-05 08:00:00 2021-09-05 09:16:46 Outpatient R RUTHIE HANEY [facility] [id number] [facility] 2021-09-05 08:00:00 2021-09-05 09:16:46 Outpatient R RUTHIE HANEY [facility] ERT [id number] [facility] 2021-09-05 07:55:15 2021-09-05 09:16:46 Office Visit Ruthie Haney [facility] Medical Office Building 1..840.114 350.1.13.10 4.2.7.2.686 [id number] [facility] 2021-09-05 08:00:00 2021-09-05 08:00:00 Outpatient R RUTHIE HANEY [facility] [id number] [facility] 2021-09-05 00:00:00 2021-09-05 00:00:00 Orders Only Doctor Unassigned, [place] [facility] 1..840.114 350.1.13.10 4.2.7.2.686 [id number] [facility] 2021-09-03 02:02:00 2021-09-03 02:31:00 Emergency X LINDA DEGROOT [facility] ERT [id number] [facility] 2021-08-31 11:17:00 2021-08-31 11:30:00 Emergency Guru Meza [facility] 1..840.114 350.1.13.10 4.2.7.2.686 [id number] [facility] 2021-08-31 11:17:00 2021-08-31 11:30:00 Emergency X GURU MEZA [facility] ERT [id number] [facility] 2021-08-31 11:17:00 2021-08-31 11:30:00 Emergency X GURU MEZA [facility] ERT [id number] [facility] 2021-08-30 10:17:00 2021-08-30 12:25:00 Emergency Timothy Bailey [facility] 1.2.840.114 350.1.13.10 4.2.7.2.686 [id number] [facility] 2021-08-30 10:17:00 2021-08-30 12:25:00 Emergency X TIMOTHY BAILEY [facility] ERT [id number] [facility] 2021-08-30 10:17:00 2021-08-30 12:25:00 Emergency X TIMOTHY BAILEY [facility] ERT [id number] [facility] 2021-08-26 12:18:00 2021-08-26 12:26:00 Emergency Prosper Sims Sandra J [facility] 1.2.840.114 350.1.13.10 4.2.7.2.686 [id number] [facility] 2021-08-26 12:18:00 2021-08-26 12:26:00 Emergency X LINDA DEGROOT [facility] ERT [id number] [facility] 2021-08-26 12:18:00 2021-08-26 12:26:00 Emergency X LINDA DEGROOT [facility] ERT [id number] [facility] 2021-08-26 12:18:00 2021-08-26 12:26:00 Emergency X LINDA DEGROOT [facility] ERT [id number] [facility] 2021-08-23 14:09:00 2021-08-23 14:43:00 Emergency Linda Degroot [facility] 1.2.840.114 350.1.13.10 4.2.7.2.686 [id number] [facility] 2021-08-23 14:09:00 2021-08-23 14:43:00 Emergency X LINDA DEGROOT [facility] ERT [id number] [facility] 2021-08-23 14:09:00 2021-08-23 14:43:00 Emergency X LINDA DEGROOT [facility] ERT [id number] [facility] 2021-08-09 20:23:00 2021-08-09 21:57:00 Emergency Meghan Harvey [facility] 1.2.840.114 350.1.13.10 4.2.7.2.686 [id number] [facility] 2021-08-09 16:53:00 2021-08-09 17:40:00 Emergency X [facility] ERT [id number] [facility] 2021-08-09 16:53:00 2021-08-09 17:40:00 Emergency [facility] 1.2.840.114 350.1.13.10 4.2.7.2.686 [id number] [facility] 2021-08-09 16:53:00 2021-08-09 17:40:00 Emergency X [facility] ERT [id number] [facility] 2021-08-05 01:08:00 2021-08-05 04:43:00 Emergency Rekha Chau Rohith [facility] 1.2.840.114 350.1.13.10 4.2.7.2.686 [id number] [facility] 2021-08-05 01:08:00 2021-08-05 04:43:00 Emergency X DIEGO REGIS [facility] ERT [id number] [facility] 2021-06-24 12:31:00 2021-06-24 14:00:00 Emergency Janet Love [facility] 1.2.840.114 350.1.13.10 4.2.7.2.686 [id number] [facility] 2021-06-24 12:31:00 2021-06-24 14:00:00 Emergency X Janet LOVE [facility] ERT [id number] [facility] 2021-06-24 12:31:00 2021-06-24 14:00:00 Emergency X Janet LOVE [facility] ERT [id number] [facility] 2021-06-19 11:32:00 2021-06-19 14:24:00 Emergency Chay Weeks [facility] 1.2.840.114 350.1.13.10 4.2.7.2.686 [id number] [facility] 2021-06-19 11:32:00 2021-06-19 14:24:00 Emergency X CHAY WEEKS [facility] ERT [id number] [facility] 2021-06-02 12:03:00 2021-06-02 12:24:00 Emergency Barry Gomez [facility] 1.2.840.114 350.1.13.10 4.2.7.2.686 [id number] [facility] 2021-06-02 12:03:00 2021-06-02 12:24:00 Emergency X BARRY GOMEZ [facility] ERT [id number] [facility] 2021-06-02 12:03:00 2021-06-02 12:24:00 Emergency X BARRY GOMEZ [facility] ERT [id number] [facility] 2021-05-22 09:22:00 2021-05-22 10:24:00 Emergency Brian Gray [facility] 1.2.840.114 350.1.13.10 4.2.7.2.686 [id number] [id number] 2021-05-22 09:22:00 2021-05-22 10:24:00 Emergency Gray, Brian [facility] 1.2.840.114 350.1.13.10 4.2.7.2.686 [id number] [facility] 2021-05-22 09:22:00 2021-05-22 10:24:00 Emergency X BRIAN GRAY [facility] ERT [id number] [facility] 2021-05-22 09:22:00 2021-05-22 10:24:00 Emergency X BRIAN GRAY [facility] ERT [id number] [facility] 2021-04-05 11:37:00 2021-04-05 13:25:00 Emergency Meghan Harvey [facility] 1.2.840.114 350.1.13.10 4.2.7.2.686 [id number] 2021-04-05 11:37:00 2021-04-05 13:25:00 Emergency Meghan Harvey [facility] 1.2.840.114 350.1.13.10 4.2.7.2.686 [id number] [facility] 2021-04-05 11:37:00 2021-04-05 13:25:00 Emergency X MEGHAN HARVEY [facility] ERT [id number] [facility] 2021-04-05 11:37:00 2021-04-05 13:25:00 Emergency X MEGHAN HARVEY [facility] ERT [id number] [facility] 2021-03-16 08:30:00 2021-03-16 10:05:00 Emergency ClayAvivara Vidal [facility] 1.2.840.114 350.1.13.10 4.2.7.2.686 [id number] 2021-03-16 08:30:00 2021-03-16 10:05:00 Emergency Linda Degroot [facility] 1.2.840.114 350.1.13.10 4.2.7.2.686 [id number] [facility] 2021-03-16 00:00:00 2021-03-16 00:00:00 Orders Only Doctor Unassigned, [place] [facility] 1.2.840.114 350.1.13.10 4.2.7.2.686 [id number] 2021-03-16 00:00:00 2021-03-16 00:00:00 Orders Only Doctor Unassigned, [place] [facility] 1.2.840.114 350.1.13.10 4.2.7.2.686 [id number] [facility] 2021-03-02 00:00:00 2021-03-02 00:00:00 Telephone Chong [facility] 1.2.840.114 350.1.13.10 4.2.7.2.686 [id number] 2021-03-02 00:00:00 2021-03-02 00:00:00 Telephone LeoChong [facility] 1.2.840.114 350.1.13.10 4.2.7.2.686 [id number] [facility] 2021-02-17 17:20:00 2021-02-17 18:16:00 Emergency Linda Degroot [facility] 1.2.840.114 350.1.13.10 4.2.7.2.686 [id number] 2021-02-17 17:20:00 2021-02-17 18:16:00 Emergency Linda Degroot [facility] 1.2.840.114 350.1.13.10 4.2.7.2.686 [id number] [facility] 2021-02-17 17:20:00 2021-02-17 18:16:00 Emergency X LINDA DEGROOT [facility] ERT [id number] [facility] 2021-02-17 17:20:00 2021-02-17 18:16:00 Emergency X LINDA DEGROOT [facility] ERT [id number] [facility] 2021-02-12 11:02:00 2021-02-12 11:46:00 Emergency Chay Weeks [facility] 1.2.840.114 350.1.13.10 4.2.7.2.686 [id number] 2021-02-12 11:02:00 2021-02-12 11:46:00 Emergency X CHAY WEEKS [facility] ERT [id number] [facility] 2021-02-12 11:02:00 2021-02-12 11:46:00 Emergency X CHAY WEEKS [facility] ERT [id number] [facility] 2021-02-12 11:02:00 2021-02-12 11:46:00 Emergency Chay Weeks [facility] 1.2.840.114 350.1.13.10 4.2.7.2.686 [id number] [facility] 2020-09-28 00:00:00 2020-09-28 00:00:00 Pete Barboza [facility] 1.2.840.114 350.1.13.10 4.2.7.2.686 [id number] 2020-09-28 00:00:00 2020-09-28 00:00:00 Pete Barboza [facility] 1.2.840.114 350.1.13.10 4.2.7.2.686 [id number] [facility] 2020-07-18 11:27:00 2020-07-18 12:25:00 Emergency Brian Gray [facility] 1.2.840.114 350.1.13.10 4.2.7.2.686 [id number] [id number] 2020-07-18 11:27:00 2020-07-18 12:25:00 Emergency Brian Gray [facility] 1.2.840.114 350.1.13.10 4.2.7.2.686 [id number] [facility] 2020-07-14 10:35:00 2020-07-14 11:01:00 Emergency Brian Gray [facility] 1.2.840.114 350.1.13.10 4.2.7.2.686 [id number] 2020-07-14 10:35:00 2020-07-14 11:01:00 Emergency X BRIAN GRAY [facility] [id number] [facility] 2020-07-14 10:35:00 2020-07-14 11:01:00 Emergency Brain Gray [facility] 1.2.840.114 350.1.13.10 4.2.7.2.686 [id number] [facility] 2020-07-06 00:00:00 2020-07-06 00:00:00 Letter (Out) [facility] 1.2.840.114 350.1.13.10 4.2.7.2.686 [id number] 2020-07-06 00:00:00 2020-07-06 00:00:00 Letter (Out) [facility] 1.2.840.114 350.1.13.10 4.2.7.2.686 [id number] [facility] 2020-07-03 14:13:00 2020-07-03 17:14:00 Emergency Janet Love [facility] 1.2.840.114 350.1.13.10 4.2.7.2.686 [id number] [id number] 2020-07-03 14:13:00 2020-07-03 17:14:00 Emergency Ivan, K Sindy [facility] 1.2.840.114 350.1.13.10 4.2.7.2.686 [id number] [id number] [facility] 2020-06-18 00:00:00 2020-06-18 00:00:00 Orders Only Doctor Unassigned, [place] [facility] 1.2.840.114 350.1.13.10 4.2.7.2.686 [id number] 2020-06-18 00:00:00 2020-06-18 00:00:00 Orders Only Doctor Unassigned, [place] [facility] 1.2.840.114 350.1.13.10 4.2.7.2.686 [id number] 009 [id number] [facility] 2020-06-11 07:22:31 2020-06-11 07:47:00 Emergency Brian Gray [facility] 1.2.840.114 350.1.13.10 4.2.7.2.686 [id number] 084 [id number] 2020-06-11 07:22:31 2020-06-11 07:47:00 Emergency Brian Gray [facility] 1.2.840.114 350.1.13.10 4.2.7.2.686 [id number] 084 [id number] [facility] 2020-06-11 00:00:00 2020-06-11 00:00:00 Orders Only Doctor Unassigned, [place] [facility] 1.2.840.114 350.1.13.10 4.2.7.2.686 [id number] 009 [id number] 2020-06-11 00:00:00 2020-06-11 00:00:00 Orders Only Doctor Unassigned, [place] [facility] 1.2.840.114 350.1.13.10 4.2.7.2.686 [id number] 009 [id number] [facility] 2020-06-03 15:21:35 2020-06-03 18:43:00 Emergency Chay Weeks [facility] 1.2.840.114 350.1.13.10 4.2.7.2.686 [id number] 084 [id number] 2020-06-03 15:21:35 2020-06-03 18:43:00 Emergency Chay Weeks [facility] 1.2.840.114 350.1.13.10 4.2.7.2.686 [id number] 084 [id number] [facility] 2020-06-03 00:00:00 2020-06-03 00:00:00 Orders Only Doctor Unassigned, [place] [facility] 1.2.840.114 350.1.13.10 4.2.7.2.686 [id number] 009 [id number] 2020-06-03 00:00:00 2020-06-03 00:00:00 Orders Only Doctor Unassigned, [place] [facility] 1.2.840.114 350.1.13.10 4.2.7.2.686 [id number] 009 [id number] [facility] 2020-05-31 00:00:00 2020-05-31 00:00:00 Telephone [facility] 1.2.840.114 350.1.13.10 4.2.7.2.686 [id number] 198 [id number] 2020-05-31 00:00:00 2020-05-31 00:00:00 Telephone [facility] 1.2.840.114 350.1.13.10 4.2.7.2.686 [id number] 198 [id number] [facility] 2020-05-19 00:00:00 2020-05-19 00:00:00 Refill Tam[facility] [place] 1.2.840.114 350.1.13.10 4.2.7.2.686 [id number] 198 [id number] [facility] 2020-05-18 13:35:31 2020-05-18 23:59:00 Outpatient R CHONG BAILEY [facility] [id number] [facility] 2020-05-18 13:35:00 2020-05-18 23:59:00 Hospital Encounter Chong Bailey [facility] 1.2.840.114 350.1.13.10 4.2.7.2.686 [id number] [facility] 2020-05-18 15:22:03 2020-05-18 16:00:04 Office Visit Mamie Barboza [facility] [place] 1.2.840.114 350.1.13.10 4.2.7.2.686 [id number] 2020-05-18 15:22:03 2020-05-18 16:00:04 Office Visit Mamie BarbozaChong dias [facility] [place] 1.2.840.114 350.1.13.10 4.2.7.2.686 [id number] 198 [id number] [facility] 2020-05-18 00:00:00 2020-05-18 00:00:00 Telephone Chong Bailey [facility] [place] 1.2.840.114 350.1.13.10 4.2.7.2.686 [id number] 198 [id number] [facility] 2020-05-18 00:00:00 2020-05-18 00:00:00 Refill Mamie Barboza [facility] [place] 1.2.840.114 350.1.13.10 4.2.7.2.686 [id number] 198 [id number] [facility] 2020-05-13 09:27:28 2020-05-13 10:04:00 Emergency Linda Degroot [facility] 1.2.840.114 350.1.13.10 4.2.7.2.686 [id number] 084 [id number] [facility] 2020-05-13 09:16:00 2020-05-13 09:16:00 Emergency X [facility] ERT [id number] [facility] 2020-05-08 00:00:00 2020-05-08 00:00:00 Orders Only Doctor Unassigned, [place] [facility] 1.2.840.114 350.1.13.10 4.2.7.2.686 [id number] 009 [id number] [facility] 2020-05-07 07:13:15 2020-05-07 07:48:00 Emergency Brian Gray [facility] 1.2.840.114 350.1.13.10 4.2.7.2.686 [id number] 084 [id number] [facility] 2020-05-07 07:13:15 2020-05-07 07:13:15 Emergency X BRIAN GRAY [facility] ERT [id number] [facility] 2020-04-09 19:10:48 2020-04-09 20:54:00 Emergency Jacqueline Luu [facility] 1.2.840.114 350.1.13.10 4.2.7.2.686 [id number] 084 [id number] [facility] 2020-04-09 19:04:00 2020-04-09 19:04:00 Emergency X [facility] ERT [id number] [facility] 2019-08-12 19:51:41 2019-08-12 20:52:00 Emergency Shimon Bruce Castro [facility] 1.2.840.114 350.1.13.10 4.2.7.2.686 [id number] 084 [id number] [facility] 2019-07-21 00:00:00 2019-07-21 00:00:00 Transition of Care Jeannie Lopez 1.2.840.114 350.1.13.10 4.2.7.2.686 [id number] [facility] 2019-07-17 11:29:01 2019-07-20 16:22:00 Hospital Encounter Meghan Harvey, Roman [facility] 1.2.840.114 350.1.13.10 4.2.7.2.686 [id number] 093 [id number] [facility] 2019-06-29 09:20:31 2019-06-29 10:41:00 Emergency Linda Degroot [facility] 1.2.840.114 350.1.13.10 4.2.7.2.686 [id number] 084 [id number] [facility] 2019-06-29 00:00:00 2019-06-29 00:00:00 Orders Only Doctor Unassigned, [place] [facility] 1.2.840.114 350.1.13.10 4.2.7.2.686 [id number] [id number] [facility] Results Test Description Test Time Test Comments Results Resul t Comments Source XR ELBOW <3 VW LEFT 2024-03-24 6 17:11:04 HISTORY: ?Pain. S/P fall. FINDINGS: AP, lateral, oblique views of left elbow showed no acute fractureor dislocation. 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 Bony ossicle adjacent to medial humeral epicondylecould be secondary to remote trauma. CONCLUSIONS: No acute fracture or dislocation in left elbow. Elbow jointeffusion and changes of degenerative arthritis noted. [facility] XR LUMBAR SPINE 3 VW 2024-03-24 6 17:09:55 HISTORY: ?Low back pain. S/P fall. FINDINGS: AP, lateral and spot views of the lumbar spines are obtained andcompared with 02/19/2023 study. AP view showed mild lumbar dextroscoliosis. Known compression fracture of L4 with loss of 30-40% of its height noted,unchanged. Minimal spondylolisthesis noted at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 1NOWTREXCHSQOBASWVFFRXT5720-19-93W1 5:46:231.2.840.178296.1.72.3.15|1.2 .840.710781.1.13.104.2.7.2.727879_2 [id number] [facility] 15:39:08 9794-00-76A28:39:08 Please review and sign if appropriate:Last office visit: 03/15/24Next office visit: not scheduledRequested PrescriptionsPending Prescriptions Disp RefillsHYDROcodone-acetaminophen 10-325 mg tablet 120 tablet 0Sig: Take 1 tablet by mouth every 6 (six) hours as needed for Pain (scale 4-6). Indications: chronic painLast refill date: 02/11/24Notes:Chronic pain 59585-8Cgxjbudke encounter GyzyXQ3714-38-94F61:40:13Telephone encounter NoteTXT1.2.840.770687.1.13.104.2.7. 2.784064|2586422376NSMbtqguqgl for patient tapu45611-5HxyiDXTXCJMQNHJWnddkimyb C-CDA narrative lvia081246581Yhplt Flores [address] SlmiOpyypqhuxLqcxoidymDQZL137680216 6XODWYJHGHTFGGGLETRNALX8001-16-02V6 5:40:131.2.840.326795.1.72.3.15|1.2 .840.773296.1.13.104.2.7.2.727879_2 [id number] Ricarda Muniz [facility] 2024-03-15 15:38:33 9156-74-72L71:38:33 Notes: Please ReviewLast Refilled:HYDROcodone-acetaminophen 10-325 mg tablet 120 tablet 0 02/11/2024 -- --Sig: Take 1 tablet by mouth every 6 (six) hours as needed for Pain (scale 4-6). Indications: chronic painSent to pharmacy as: hydrocodone 10 mg-acetaminophen 325 mg tablet (NORCO)Class: eRXEarliest Fill Date: 4Route: OralOrder: [id number]/Time Signed: 02/11/2024 11:19E-Prescribing Status: Receipt confirmed by pharmacy (02/11/2024 11:19 AM CDT)Recent VisitsDate Type Provider Dept01/14/24 Office Visit Nghia [...] Visit Nghia Menendez MD [facility]06/09/23 Office Visit Nghia Menendez MD [facility]03/26/23 Office Visit Nghia Menendez MD [facility]02/24/23 Office Visit Nghia Menendez MD [facility] Fam MedShowing recent visits within past 540 days with a meds authorizing provider and meeting all other requirementsToday's VisitsDate Type Provider Dept03/15/24 Office Visit Nghia Menendez MD [facility] Fam MedShowing today's visits with a meds authorizing provider and meeting all other requirementsFuture AppointmentsNo visits were found meeting these conditions.Showing future appointments within next 150 days with a meds authorizing provider and meeting all other requirements 75245-1Ztgizllhl encounter TljhSR8888-64-96S11:39:30Telephone encounter NoteTXT1.2.840.654941.1.13.104.2.7. 2.759246|6794129247JIBjcniepqs for patient mdgp29945-9FyklFUQWPMNTBPTUqwivauej C-CDA narrative Decision Lens[address]veston[place]onTX[place] 9KNOZJCGOYESTBMDBCWOAFZ3981-39-15J0 5:39:301.2.840.537335.1.72.3.15|1.2 .840.263198.1.13.104.2.7.2.727879_2 [id number] [facility] 2024-03-15 15:35:44 6133-83-68X26:35:44 Daughter of the patient requesting refill on patient's pain medication. States she is completely out at this time. Please advise. 66053-7Zxwykqvrq encounter TdtlJH6801-01-48X53:37:43Telephone encounter NoteTXT1.2.840.609295.1.13.104.2.7. 2.497370|3346595074QIYcqzpotnb for patient qxfm86853-8PaauTFNXFFOMVOZOvnveddnq C-CDA narrative Decision Lens[address] StreetIkojBhlumqyoeYfeuumbxfRTQP197012422 2AKOBJRUFOFSXFDVPNYTEGU7760-60-11K9 5:37:431.2.840.168036.1.72.3.15|1.2 .840.534993.1.13.104.2.7.2.727879_2 [id number] [facility] 2024-03-15 12:30:00 2144-49-81A97:30:00Addended by: NGHIA MENENDEZ MD on: 03/15/2024 01:17 PMModules accepted: Orders 79868-0Uozendrj NhbhhwbuJB2226-86-35D90:17:36Addend um DocumentTXT1.2.840.437972.1.13.104. 2.7.2.425303|[id number] for patient fjyu21190-3ZdhwVCMGYAXXRYWQyrmhtjgq C-CDA narrative textUT[address] LpukXtmpzxqalRuybhgeygWDPT472494243 9AYOUQYHYNPNCDOLWQQSUBX9367-09-89F5 3:17:361.2.840.296992.1.72.3.15|1.2 .840.564557.1.13.104.2.7.2.727879_2 [id number] [facility] 2024-03-15 07:10:06 6543-54-26W07:10:06 Notes: Please ReviewLast Refilled:clonazePAM 2 mg tablet 60 tablet 0 10/02/2023 -- --Sig: Take 1 tablet by mouth every morning and evening.Sent to pharmacy as: clonazePAM 2 mg tablet (KLONOPIN)Class: eRXRoute: OralOrder: [id number]/Time Signed: 10/02/2023 12:29E-Prescribing Status: Receipt confirmed by pharmacy (10/02/2023 12:30 PM PRODUCTION DISPATCHER)Recent VisitsDate Type Provider Dept01/14/24 Office Visit Nghia Menendez MD [facility]12/15/23 Office Visit Nghia Menendez MD [facility]11/12/23 Office Visit Nghia Menendez MD [facility]10/02/23 Office Visit Nghia Menendez MD [facility]09/04/23 Office Visit Nghia Menendez MD [facility]08/06/23 Office Visit Nghia Menendez MD [facility]07/09/23 Office Visit Nghia Menendez MD [facility]06/09/23 Office Visit Nghia Menendez MD [facility]03/26/23 Office Visit Nghia Menendez MD [facility]02/24/23 Office Visit Nghia Menendez MD [facility] Fam MedShowing recent visits within past 540 days with a meds authorizing provider and meeting all other requirementsToday's VisitsDate Type Provider Dept03/15/24 Appointment Nghia Menendez MD Ang-[facility] Fam MedShowing today's visits with a meds authorizing provider and meeting all other requirementsFuture AppointmentsNo visits were found meeting these conditions.Showing future appointments within next 150 days with a meds authorizing provider and meeting all other requirements 50958-2Gszzihazk encounter CvhnAG4571-50-14Y54:10:40Telephone encounter NoteTXT1.2.840.733938.1.13.104.2.7. 2.566565|8055749531GLMmqlumaaa for patient aorz63573-2JyvaQYEPEOZBZBCTtsiihbfo C-CDA narrative wmfv362011382Eljltz Myers[address] StsiEumfqiqcxZtgmloiizTSOW048442421 7LKVXIHNLXUBUOUVIEJCAQV7065-05-01A4 7:10:401.2.840.262864.1.72.3.15|1.2 .840.727561.1.13.104.2.7.2.727879_2 [id number] Nyasia Keita [facility] 2024-03-13 16:49:24 6095-66-46V82:49:24 Masha Cunningham is a 63 year old femalePatient requesting for her clonazePAM 2 mg tablet (KLONOPIN) to be refilled please assist 75941-6Rmgpajarx encounter UdxyVT8018-69-82V58:50:14Telephone encounter NoteTXT1.2.840.043555.1.13.104.2.7. 2.310704|9925566495RZFhzzpbdhj for patient ybad55016-4CixpSLYFFFBNVLYQcryzhuet C-CDA narrative awic924391350Meekap L [address] MkbkSqdvqfvfwSxcygvdykPMOR664035568 2LEICMRXIZMHHPEDLAZAGXK0911-44-62D1 6:50:141.2.840.431075.1.72.3.15|1.2 .840.269259.1.13.104.2.7.2.727879_2 [id number] Shea Ordonez [facility] 2024-02-11 09:56:30 8044-75-94P78:56:30 Outpatient Medication DetailDisp Refills Start End DAWHYDROcodone-acetaminophen 10-325 mg tablet 120 tablet 0 01/14/2024 -- --Sig: Take 1 tablet by mouth every 6 (six) hours as needed for Pain (scale 4-6). Indications: chronic painSent to pharmacy as: hydrocodone 10 mg-acetaminophen 325 mg tablet (NORCO)Class: eRXEarliest Fill Date: 4Route: OralOrder: [id number]/Time Signed: 01/14/2024 10:14E-Prescribing Status: Receipt confirmed by pharmacy (01/14/2024 10:14 AM PRODUCTION DISPATCHER)Controlled? TING ClassYes [1] C-II High Abuse Potential [2]Associated DiagnosesChronic bilateral low back pain without sciatica - PrimaryOrder Associated ProvidersName NPIOrdering Provider Nghia Menendez MD [[id number]] [id number] Provider Nghia Menendez MD [[id number]] [id number] [facility] [place] [facility] [address] [place] [address] AT [facility] & [address]Recent VisitsDate Type Provider [...] Visit Nghia Menendez MD [facility]06/09/23 Office Visit Nghia Menendez MD [facility]03/26/23 Office Visit Nghia Menendez MD [facility]02/24/23 Office Visit Nghia Menendez MD [facility] Fam MedShowing recent visits within past 540 days with a meds authorizing provider and meeting all other requirementsFuture AppointmentsDate Type Provider Dept03/15/24 Appointment Nghia Menendez MD Ang-[facility] Fam MedShowing future appointments within next 150 days with a meds authorizing provider and meeting all other requirements 98829-6Cbhzaqpnc encounter VdnkKT1760-94-45G47:56:39Telephone encounter NoteTXT1.2.840.420891.1.13.104.2.7. 2.279787|9065269921DRLkjipakop for patient nfyq10309-8BcylZVXVSMQSOIWJdczhvlth C-CDA narrative text[address] CnjsRcrdavignScbudjkxfSAPB783924856 6ADXKYLMEDIBFJQKOPDEQGT7666-75-71O4 9:56:391.2.840.786540.1.72.3.15|1.2 .840.712179.1.13.104.2.7.2.727879_2 [id number] [facility] 2024-02-11 09:55:45 6592-06-65B74:55:45 Notified patient we received her refill request to allow time for to review it. She verbalized understanding.Jenny Dunn LVN 02/11/2024 9:56 AM 61730-4Urncghorl encounter MgtoIR3355-95-31T89:56:39Telephone encounter NoteTXT1.2.840.483030.1.13.104.2.7. 2.359128|1311166961MXCjhheylpu for patient nudi01723-1BpmgNOKRQJLSLSPQktpcytcf C-CDA narrative textUT[address] NdkcBxwhtlibpSgptbaaisSEJF336316413 9ZLOARXOPXDUXLFRRDNJPUV9773-49-01A0 9:56:391.2.840.887836.1.72.3.15|1.2 .840.082681.1.13.104.2.7.2.727879_2 [id number] [facility] 2024-02-11 09:53:28 9804-81-21W28:53:28 Copied from [facility] #[id number]. Topic: Clinical - Order>> Feb 11, 2024 9:52 AM Patient Sewer Tapper wrote:,Masha Cunningham is a 63 year old femalePatient calling in to check if Rx was sent to pharmacy; advised her of refill request turnaround time. 53175-8Inbahvfdy encounter NdyaCD7397-93-20Q95:54:07Telephone encounter NoteTXT1.2.840.570285.1.13.104.2.7. 2.964657|1044016547GKDqtvtzasj for patient xzuc23172-9OcoqPSRCWIFLMQEQzjnksvfx C-CDA narrative gomk204792331Scmxdib J [address] AuajUtyxdnjyoWezjduczcRQEC690635447 3DASAQDXYSNDBPLMWTUKFJA6971-42-19W9 9:54:071.2.840.456760.1.72.3.15|1.2 .840.447681.1.13.104.2.7.2.727879_2 [id number] Precious Drake [facility] 2024-02-11 09:33:50 9807-81-31T32:33:50 Outpatient Medication DetailDisp Refills Start End DAWHYDROcodone-acetaminophen 10-325 mg tablet 120 tablet 0 01/14/2024 -- --Sig: Take 1 tablet by mouth every 6 (six) hours as needed for Pain (scale 4-6). Indications: chronic painSent to pharmacy as: hydrocodone 10 mg-acetaminophen 325 mg tablet (NORCO)Class: eRXEarliest Fill Date: 01/14/2024oute: OralOrder: [id number]/Time Signed: 01/14/2024 10:14E-Prescribing Status: Receipt confirmed by pharmacy (01/14/2024 10:14 AM PRODUCTION DISPATCHER)Controlled? TING ClassYes [1] C-II High Abuse Potential [2]Associated DiagnosesChronic bilateral low back pain without sciatica - PrimaryOrder Associated ProvidersName NPIOrdering Provider Nghia Menendez MD [[id number]] [id number] Provider Nghia Menendez MD [[id number]] [id number] [facility] [address] [facility] & [address]Recent VisitsDate Type Provider Dept01/14/24 Office Visit Nghia Menendez MD Ang-Db [facility] Med12/15/23 Office Visit gNhia Menendez MD Ang-[facility]11/12/23 Office Visit Nghia Menendez MD [facility]10/02/23 Office Visit Nghia Menendez MD [facility]09/04/23 Office Visit Nghia Menendez MD [facility]08/06/23 Office Visit Nghia Menendez MD [facility]07/09/23 Office Visit Nghia Menendez MD [facility]06/09/23 Office Visit Nghia Menendez MD [facility]03/26/23 Office Visit Nghia Menendez MD [facility]02/24/23 Office Visit Nghia Menendez MD Ang[facility] Fam MedShowing recent visits within past 540 days with a meds authorizing provider and meeting all other requirementsFuture AppointmentsDate Type Provider Dept03/15/24 Appointment Nghia Menendez MD Ang-[facility] Fam MedShowing future appointments within next 150 days with a meds authorizing provider and meeting all other requirements 84060-1Fwjaiiiul encounter HnjcKV6089-07-55N08:34:08Telephone encounter NoteTXT1.2.840.250388.1.13.104.2.7. 2.233247|[id number] for patient ymcj21202-3JcsmYSOQYBRQZZHZdbjzmqfn C-CDA narrative textUT[address] VpdyEraoyozppDimqywdpeOPOA209413332 6HKADJFDATQSYSXIXQQCCKA5194-21-89S6 9:34:081.2.840.363230.1.72.3.15|1.2 .840.090635.1.13.104.2.7.2.727879_2 [id number] [facility] 2024-02-11 09:26:09 5503-22-05M87:26:09 Pt requesting refillHYDROcodone-acetaminophen 10-325 mg tabletHEB [facility] [address] AT [address] GuzmanPhone: Qwq: [phone] signed by Jerome Cuevas at 02/11/2024 9:26 AM EBU66276-7Qoyluiyup encounter WtrhDV4841-29-92T37:26:40Telephone encounter NoteTXT1.2.840.004892.1.13.104.2.7. 2.181601|0521045171TCOubjxboae for patient zeje54933-7ViyvWTMMCLIYKGCWrtvnyvkd C-CDA narrative ique28085533Djggam Mason[address]TXTX[address] 5INZXASWGRDECLCYINWCIAZ9073-22-18E0 9:26:401.2.840.791905.1.72.3.15|1.2 .840.622313.1.13.104.2.7.2.727879_2 [id number] Jerome Coloradonandez [facility] 2023-06-24 12:14:22 4078-59-01K33:14:22 LopezCorengi Insurance denied generic symbicort inhaler. Re submitted as brand name medically necessary in attempt for coverage. Will check back with pharmacy this afternoon. 58170-9Fwzumxsjo encounter PdzaYC3583-84-75X22:15:29Telephone encounter NoteTXT1.2.840.331156.1.13.104.2.7. 2.976612|1604877816FVGeucanoxz for patient gpns20753-0QqoxFMVCBGJPVI[address] BjeiZdloujdlaZleebqjctWKRO986556449 0VJXNBMWTFMHHQUJLUSYDAW4345-87-72Y6 2:15:291.2.840.900942.1.72.3.15|1.2 .840.469523.1.13.104.2.7.2.727879_1 [id number] [facility] 2023-06-23 06:12:19 4580-83-77O11:12:19 That's good. 41163-7Szhphrvxf encounter QckxVK5740-12-53Z87:12:32Telephone encounter NoteTXT1.2.840.357382.1.13.104.2.7. 2.805219|[id number] for patient xpri71367-7XitjNSXUBTOAWY[id number] 8HLJUEFWGLUIVTGCWZYFPUQ6304-97-16T7 6:12:321.2.840.560849.1.72.3.15|1.2 .840.888686.1.13.104.2.7.2.727879_1 [id number] [facility] 2023-06-19 14:15:58 3801-25-17J76:15:58 Spoke to the daughter and she wants a provider referral and any other referrals for any other services that her mother can be assisted with. Told her to call her moms insurance to see who is in network with them and I also gave her [employer] number as well. Tayla Shanks MA 06/19/2023 2:20 PM 29410-8Ddghlaeti encounter YjfhMK0141-37-66X17:21:24Telephone encounter NoteTXT1.2.840.405644.1.13.104.2.7. 2.976970|[id number] for patient kmiu91706-1UktjIT087376825Xqmidtf K [id number] 1HMEFYUBUPCPIKNGHWAJZQH9881-51-61E0 4:21:241.2.840.770181.1.72.3.15|1.2 .840.357465.1.13.104.2.7.2.727879_1 [id number] Tayla Shanks [facility] 2023-06-16 10:26:33 8131-04-07F05:26:33 She is looking for some one to help with cooking, cleaning, etc. I don't think that service is available here. 79098-5Gktjkpppt encounter BuyhOB8089-04-86V08:28:06Telephone encounter NoteTXT1.2.840.172318.1.13.104.2.7. 2.614365|[id number] for patient ycow83756-1WadvMKEHYPQTLF[address] Toj[id number] 5OXLJFJKJPNSNPYEXWJDLZS1217-96-83A7 0:28:061.2.840.072228.1.72.3.15|1.2 .840.579140.1.13.104.2.7.2.727879_1 [id number] [facility] 2023-06-16 10:14:22 3549-63-80T97:14:22 Please review and advise. 36887-9Ruizeepgo encounter LtopHK2629-42-94Z24:14:32Telephone encounter NoteTXT1.2.840.987210.1.13.104.2.7. 2.863249|[id number] for patient dxkv39155-3VqgjPZ445799087Czrtkj Dragan [id number] 6RUPRCJPEKXECTPUHOZHSCT8120-15-37X2 0:14:321.2.840.945372.1.72.3.15|1.2 .840.854927.1.13.104.2.7.2.727879_1 [id number] Elizabeth Archibald RN [facility] 2023-06-16 09:55:28 5656-68-05G06:55:28 Pt is wanting to discuss home health says she can barely stand to wash her own dishes, say she discussed this previously.Call pt on temp #[id number] signed by Lulu Canas at 06/16/2023 9:57 AM LKA88017-7Tgnctahua encounter LlvnIC7658-50-70R23:57:27Telephone encounter NoteTXT1.2.840.556684.1.13.104.2.7. 2.796482|1193038637ZQCosdletlr for patient sigl89520-0NefhKU804379703Btnhb [id number] 4VPOJDHNIZROMZBIKGZDJRH7291-00-24P0 9:57:271.2.840.470248.1.72.3.15|1.2 .840.093195.1.13.104.2.7.2.727879_1 [id number] Lulu Canas [facility] 2023-06-10 16:49:35 3006-12-30T57:49:35 Received PA from [employer]JICA:BFUJYDWNElectronical ly signed by Valentina Nguyen at 06/10/2023 4:52 PM RVW02009-6Vuhnfsgwu encounter JtisWK7573-18-77A64:52:39Telephone encounter NoteTXT1.2.840.784192.1.13.104.2.7. 2.499442|[id number] for patient ocni238045020Jutwkuqsk [address] Np[id number] 3MVFAETDKCWZSJZGBMIQLMM5560-64-91T2 6:52:[id number] Valentina Nguyen [facility] 2021-08-10 12:04:00 [id number]+//[id number] 08-10T12:04:00 [facility] [address] [place] [id number] Emergency Department Document Signed Patient: Masha Cunningham Medical Record#: [id number] : 1960 Acct:[id number] Age/Sex: 60 / F Admit/Reg Date: 08/10/21 Loc: [facility] Room: Report Number: [id number] Attending Dr: Christy Partida DO Arrival - [...] (Auto) 76.8 H, Lymph % (Auto) 16.9, [place] % (Auto) 5.5, Eos % (Auto) 0.1, Baso % (Auto) 0.3, Neut # (Auto) 7.3, Lymph # (Auto) 1.60, [place] # (Auto) 0.52, Eos # (Auto) 0.01, [...] Pcp-Md Vallejo MD [Primary Care Provider] - ([address], [facility] [address] [place] [address] Telephone #[phone] [place] [address] ) Print Language: Iraqi Dictated By: Christy Partida DO Signed By: Christy Partida DO 08/10/21 1351 DD/ 1204 TD/TT: 08/10/21 1204 [employer] Sales Associate: NUVIA cc: KAREN* Pcp-Md MD JOSE F Vallejo Physician WasseglxnpvykEHKGO68ZlnijypBarber E[id number]:04:00 P.EDAVAvailable for patient [id number]:51:47 [facility]
--- NOTE | 2024-05-29 18:02 | RAD REPORT ---
EXAM DESCRIPTION: RAD - Femur Left - 05/29/2024 5:50 pm CLINICAL HISTORY: PAIN COMPARISON: <Comparisons> FINDINGS: No acute fracture or dislocation seen.
--- NOTE | 2024-05-29 18:05 | EDPHYS ---
Physician Documentation [facility] Name: Afua Cunningham Age: 63 yrs Sex: Female : 1960 Arrival Date: 05/29/2024 Time: 16:09 Bed 14 Private MD: ED Physician Sonny Murray HPI: 05/29 17:00 This 63 yrs old Black Female presents to ER via EMS with complaints of Hip Pain. kb 17:00 Pt is a 63 year old female who presents for left leg pain from hip to knee. States it kb started 3.5 weeks ago. Pt ambulatory. States she had to call the ambulance to bring her son in so she thought she should come get evaluated for this as well. Denies recent injury or trauma. . Historical: - Allergies: 16:25 No Known Allergies; nj1 - PMHx: 16:25 Anxiety; Asthma; Back pain; Depression; fx in middle of back; GERD; Hypertension; UTI; nj1 Schizophrenia; - Immunization history:: Client reports having NOT received the Covid vaccine. - Infectious Disease History:: Denies. - Social history:: Smoking status: Patient reports the use of cigarette tobacco products, smokes one-half pack cigarettes per day. ROS: 16:57 Constitutional: As per HPI kb Exam: 16:57 Constitutional: This is a well developed, well nourished patient who is awake, alert, kb and in no acute distress. Head/Face: Normocephalic, atraumatic. ENT: Moist Mucous membranes Cardiovascular: Regular rate Respiratory: Respirations even and unlabored. No increased work of breathing. Talking in full sentences Skin: Warm, dry with normal turgor. Normal color. Neuro: Awake and alert, GCS 15, oriented to person, place, time, and situation. Moves all extremities. Normal gait. 16:57 Musculoskeletal/extremity: Extremities: grossly normal except: noted in the left quadriceps: pain, ROM: intact in all extremities, Circulation is intact in all extremities. Sensation intact. Weight bearing: able to fully bear weight, Vital Signs: 16:08 BP 148 / 96; Pulse 84; Resp 16; Pulse Ox 97% on R/A; Pain 10/10; nj1 16:18 BP 148 / 96; kj2 16:18 Pulse 84; Resp 16; Temp 99(O); Pulse Ox 97% on R/A; kj2 17:27 BP 143 / 68; Pulse 79; Resp 17; Pulse Ox 95% on R/A; nj1 18:49 BP 124 / 83; Pulse 83; Resp 18; Temp 98.7; Pulse Ox 96% on R/A; nj1 16:08 Pain Scale: Adult nj1 MDM: 16:20 Patient medically screened. kb 17:02 Differential diagnosis: fracture, strain, contusion. Data reviewed: vital signs, nurses kb notes. Historians other than the Patient: EMS: [facility]. Counseling: I had a detailed discussion with the patient and/or guardian regarding the historical points, exam findings, and any diagnostic results supporting the discharge/admit diagnosis, radiology results, the need for outpatient follow up, a family practitioner, to return to the emergency department if symptoms worsen or persist or if there are any questions or concerns that arise at home. 18:04 Independent interpretation of the following test(s) in the Emergency Department X-Ray: kb My interpretation is no fracture. 05/29 16:20 Order name: Femur Left XRAY; Complete Time: 18:04 kb Administered Medications: No medications were administered Disposition: 19:05 Co-signature as Attending Physician, Sonny Murray MD I reviewed the patient's care rn provided by the Advanced Practice Provider and agree with the diagnosis and treatment plan. Disposition Summary: 05/29/24 18:04 Discharge Ordered Notes: Location: Home kb Condition: Stable kb Diagnosis - Pain in left leg kb Followup: kb - With: Emergency Department - When: As needed - Reason: Worsening of condition Followup: kb - With: Private Physician - When: 2 - 3 days - Reason: Recheck today's complaints, Continuance of care, Re-evaluation by your physician Discharge Instructions: - Discharge Summary Sheet kb - Musculoskeletal Pain kb Forms: - Medication Reconciliation Form kb - Antibiotic Education kb - Prescription Opioid Use kb - Patient Portal Instructions kb - Leadership Thank You Letter kb Signatures: Dispatcher [employer] Misti Garcia FNP-C FNP-Sonny Hilliard MD MD rn Jaco, Norma, RN RN nj1
--- NOTE | 2024-05-29 18:05 | ER ---
Nurse's Notes [facility] Name: Afua Cunningham Age: 63 yrs Sex: Female : 1960 Arrival Date: 05/29/2024 Time: 16:09 Bed 14 Private MD: Diagnosis: Pain in left leg Presentation: 05/29 16:08 Chief complaint: EMS states: Left hip pain that radiates down to leg. No known injury. nd1 Ambulatory upon EMS arrival. 16:08 Coronavirus screen: Vaccine status: Patient reports being unvaccinated. Ebola Screen: nj1 Patient denies travel to an Ebola-affected area in the 21 days before illness onset. Risk Assessment: Do you want to hurt yourself or someone else? Patient reports no desire to harm self or others. Onset of symptoms was 2023. 16:08 Method Of Arrival: EMS: [facility] 16:08 Acuity: ASHA 3 [facility] 16:08 Initial Sepsis Screen: Does the patient meet any 2 criteria? No. Patient's initial [facility] sepsis screen is negative. Does the patient have a suspected source of infection? No. Patient's initial sepsis screen is negative. Historical: - Allergies: 16:25 No Known Allergies; nj1 - PMHx: 16:25 Anxiety; Asthma; Back pain; Depression; fx in middle of back; GERD; Hypertension; UTI; nj1 Schizophrenia; - Immunization history:: Client reports having NOT received the Covid vaccine. - Infectious Disease History:: Denies. - Social history:: Smoking status: Patient reports the use of cigarette tobacco products, smokes one-half pack cigarettes per day. Screenin:31 [facility] ED Fall Risk Assessment (Adult) History of falling in the last 3 months, [facility] including since admission No falls in past 3 months (0 pts) Confusion or Disorientation No (0 pts) Intoxicated or Sedated No (0 pts) Impaired Gait No (0 pts) Mobility Assist Device Used No (0 pt) Altered Elimination No (0 pt) Score/Fall Risk Level 0 - 2 = Low Risk Oriented to surroundings, Maintained a safe environment, Hourly rounding (assess needs \T\ fall precautionary measures) done. Abuse screen: Denies threats or abuse. Denies injuries from another. Nutritional screening: No deficits noted. Tuberculosis screening: No symptoms or risk factors identified. Assessment: 16:26 General: Appears in no apparent distress. uncomfortable, Behavior is calm, cooperative, nj1 appropriate for age. Pain: Complains of pain in right knee, right mcqueen, left hip and left leg Pain currently is 10 out of 10 on a pain scale. Neuro: Level of Consciousness is awake, alert, obeys commands, Oriented to person, place, time, situation. Cardiovascular: Patient's skin is warm and dry. Respiratory: Airway is patent Respiratory effort is even, unlabored. Musculoskeletal: Reports pain in right knee, right mcqueen, left hip and left leg. 17:27 Reassessment: Patient appears in no apparent distress at this time. Patient and/or nj1 family updated on plan of care and expected duration. Pain level reassessed. Patient is alert, oriented x 3, equal unlabored respirations, skin warm/dry/pink. 18:50 Reassessment: No changes from previously documented assessment. Patient is alert, kj2 oriented x 3, equal unlabored respirations, skin warm/dry/pink. Patient states feeling better. Vital Signs: 16:08 BP 148 / 96; Pulse 84; Resp 16; Pulse Ox 97% on R/A; Pain 10/10; nj1 16:18 BP 148 / 96; kj2 16:18 Pulse 84; Resp 16; Temp 99(O); Pulse Ox 97% on R/A; kj2 17:27 BP 143 / 68; Pulse 79; Resp 17; Pulse Ox 95% on R/A; nj1 18:49 BP 124 / 83; Pulse 83; Resp 18; Temp 98.7; Pulse Ox 96% on R/A; nj1 16:08 Pain Scale: Adult [facility] ED Course: 16:16 Patient arrived in ED. nj1 16:20 Misti Barragan FNP-C is PHCP. kb 16:20 Sonny Murray MD is Attending Physician. kb 16:22 Triage completed. nj1 16:26 Arm band placed on. nj1 16:31 Patient has correct armband on for positive identification. Bed in low position. Call [facility] light in reach. Side rails up X 1. Provided Education on: call light, fall precautions. 16:45 Christie Mccain, [place] is Primary Nurse. nj1 17:51 Femur Left XRAY In Process Unspecified. EDMS 18:54 No provider procedures requiring assistance completed. kj2 18:55 Patient did not have IV access during this emergency room visit. nj1 Administered Medications: No medications were administered Medication: 18:53 VIS not applicable for this client. kj2 Outcome: 18:04 Discharge ordered by . kb 18:51 Discharged to home ambulatory, kj2 18:52 Condition: stable kj2 18:52 Discharge instructions given to patient, Instructed on follow up and referral plans. Demonstrated understanding of instructions, follow-up care, 18:55 Patient left the ED. kj2 Signatures: Dispatcher [employer] EDMS Misti Barraagn, JULY-C JULY-Christie Reilly RN RN nj1 Mia Lorenz, [place] RN kj2 Corrections: (The following items were deleted from the chart) 18:56 18:49 BP 124 / 83; kj2 nj1 18:56 18:49 BP 124 / 83; Pulse 83bpm; Resp 18bpm; Pulse Ox 96% RA; nj1 nj1
[2024-05-29 19:06] VITALS: BP 124/83; TEMP 99; O2SAT 95
== END 2024-05-29 18:55 | disposition home or self-care (01) ==
LOC: ER 16:09
DX: M79.605 Pain in left leg (principal); M25.552 Pain in left hip
CPT/HCPCS: 99283

== ENCOUNTER 2024-09-04 15:28 | Emergency (ER) | payer OTHER ==
--- OUTSIDE RECORDS SUMMARY | 2024-09-04 15:35 | XMS REPORT | Continuity of Care Document ---
Author Name Unknown Address [address] [facility] [address] [place] [address] [facility] thconnect Address [address] [facility] [address] [place] [address] Care Team Providers Care Equipment Operating Engineer Name Role Phone Pcp-None Primary Care Physician Unavailab NGHIA Shukla Attending Clinician Unavailable MARYCHUY CERVANTES Attending Clinician Unavailable MARYCHUY CERVANTES Attending Clinician Unavailable Nghia Menendez MD Attending Clinician + [phone] Keenan WHITE, Yue Attending Clinician [phone] Puneet Galvez Attending Clinician + [phone] PUNEET NOVOA Attending Clinician Unavailable Unknown, Attending Attending Clinician Unavailab Chong Marmolejo MD Attending Clinician +[phone] Marychuy Cervantes PA-C Attending Clinician [phone] CHONG BAILEY Attending Clinician Unavailabl CHONG Lance Attending Clinician Unavailbeny Flores MD, Radha Shanks Attending Clinician + [phone] Nurse, [facility] Attending Clinician Un available Jessa FIGUEROA, Daniela Mcleod Attending Clinician Unavailbeny Beckwith MD, Mackenzie Attending Clinician [phone] MACKENZIE BECKWITH Attending Clinician Unavailable Doctor Unassigned, [place] Attending Clinician U navailable ADELITA HOGAN Attending Clinician Unavailable Doctor Unassigned, [place] Attending Clinician U navailable DAYTON CALDERON Attending Clinician Unavailable Dayton Calderon DNP Attending Clinician +[phone] ELLIE DELUCA Attending Clinician Unavailable JEANMARIE GARCIA Attending Clinician Unavailable Jeanmarie Garcia MD Attending Clinician +[phone] Nghia Menendez MD Attending Clinician +[phone] Jeanmarie Garcia MD Attending Clinician +[phone] Vipin Batista Attending Clinician Unavailable GURU MEZA Attending Clinician Unavailable Guru Meza DO Attending Clinician [phone] CHAY WEEKS Attending Clinician Unavailable Chay Barron S Attending Clinician [phone] MIRIAM VERGARA Attending Clinician Unavailable ALTON REYES Attending Clinician Unavailable ALTON REYES Attending Clinician Unavailable Mackenzie Beckwith MD Attending Clinician [phone] YARI HORNE Attending Clinician Unavaila Alton Henderson DO Attending Clinician [phone] JULI TURNER Attending Clinician UnaRAY Dorsey Attending Clinician Unavailable Ellie Deluca MD Attending Clinician [phone] MAMIE BARBOZA Attending Clinician Unavailable Kiera Short Attending Clinician [phone], [facility] Attending Clinician Unavailable Quentin MORGAN, Heather L Attending Clinician [phone] Ebrahirosamaria DECK OFFICER, Domia Attending Clinician [phone] Unknown, Attending Attending Clinician Unavailab PROSPER Lynn Attending Clinician Unavailable DERECK JOHNSON Attending Clinician Unavailable DERECK JOHNSON Attending Clinician Unavailable SONIA PICKARD Attending Clinician Unavaila prachi Pickard ACNPSonia Attending Clinician + [phone] Mamie Cabrales Attending Clinician [phone] Chong Bailey MD Attending Clinician +[phone] SANDRA ANDRADE Attending Clinician Unavaila ble IbikunSandra Summers F Attending Clinician [phone] MEAGHAN JACOBO Attending Clinician Unavailable DEIDRA MEEK Attending Clinician Unavailable Deidra Meek NP Attending Clinician [phone] RUTHIE HANEY Attending Clinician Unavailable Layne Weir MD Attending Clinician [phone] LAYNE WEIR Attending Clinician Unavailable Ruthie Davis Attending Clinician [phone] ISABELLE PRECIADO Attending Clinician Unavailable Isabelle Husain Attending Clinician +[phone] [facility] Attending Clinician Unavail able Mikael Shafer MD Attending Clinician + [phone] ROSY FLOWERS [facility] Attending Clinician Unavaila ble Pob, [facility] Main Attending Clinician UnavailREKHA Sanford Attending Clinician Unavailable Rekha Link Attending Clinician [phone] Provider, [facility] Attending Clinician Unavailable Neli Baron MD Attending Clinician +[phone] Tor WHITE, Rosy K.[facility]. Attending Clinician + [phone] LINDA DEGROOT Attending Clinician Unavailab rosana Bailey DECK OFFICER, Timothy Attending Clinician [phone] TIMOTHY BAILEY Attending Clinician Unavailable Linda Degroot DO Attending Clinician +[phone] Christy Partida Attending Clinician Unavailable Wes DECK OFFICER, Meghan Attending Clinician [phone] Reigs Cortez MD Attending Clinician [phone] RGEIS CORTEZ Attending Clinician Unavailable Janet Tavera Attending Clinician [phone] Janet LOVE Attending Clinician Unavailable Vinny HERRINGP, Barry Ferrer Attending Clinician + [phone] BARRY GOMEZ Attending Clinician Unavailable Brian Gray MD Attending Clinician +[phone] BRIAN GRAY Attending Clinician Unavailable MEGHAN HARVEY Attending Clinician Unavailable Ary FIGUEROA, Johnna Tenorio Attending Clinician Unavailab rosana Luu DECK OFFICER, Jacqueline Attending Clinician +[phone] Bruce Loco Attending Clinician [phone] Jessica FIGUEROA, Jeannie Maloney Attending Clinician +[phone] Kali Caban MD Attending Clinician +[phone] Roman Perez Attending Clinician +[phone] JEANMARIE GARCIA Admitting Clinician Unavailable GURU MEZA Admitting Clinician Unavailable SANDRA ANDRADE Admitting Clinician UnavailDEIDRA Choi Admitting Clinician Unavailable LAYNE WEIR Admitting Clinician Unavailable CHONG BAILEY Admitting Clinician UnavailMAMIE Patel Admitting Clinician Unavailable REKHA CHAU Admitting Clinician Unavailable CHAY WEEKS Admitting Clinician Unavailable MEGHAN HARVEY Admitting Clinician Unavailable Mee WHITE, Kali Melo Admitting Clinician [phone] Payers Payer Name Policy Type Policy Number Effective Date Expirati on Date Source [facility]/[employer] MEDICARE ADVANTAGE [id number] 2012 00:00:00 [facility] MEDICAID [id number] 2016 00:00:00 [employer] MEDICAID DUAL COMPLETE HMO DS [id number] [place] [id number] 2024 00:00:00 QUOC BELLA [facility] [id number] 2023 00:00:00 2023 00:00:00 Problems Condition Name Condition Details Condition Category Status Onset Date Resolution Date Last Treatment Date Treating Clinician Comments Source Palpitatio ns Palpitatio ns Disease Active 05-11 00:00: 00 [facility] ODOM (dyspnea on exertion) ODOM (dyspnea on exertion) Disease Active 05-11 00:00: 00 [facility] Cigarette smoker Cigarette smoker Disease Active 6 00:00: 00 [facility] Anxiety Anxiety Disease Active 03-18 00:00: 00 [facility] Depression , unspecifie d depression type Depression , unspecifie d depression type Disease Active 9 00:00: 00 [facility] Chronic bilateral low back pain without sciatica Chronic bilateral low back pain without sciatica Disease Active 2021-11- 00:00: 00 [facility] Cardiac murmur Cardiac murmur Disease Active 2020-11 0-13 00:00: 00 [facility] Anemia, unspecifie d type Anemia, unspecifie d type Disease Active 2020-11 0-13 00:00: 00 [facility] Chronic GERD Chronic GERD Disease Active 2020-11 013 00:00: 00 [facility] Moderate persistent asthma without complicati on Moderate persistent asthma without complicati on Disease Active 2020-11 0-13 00:00: 00 [facility] Hypertensi on, essential Hypertensi on, essential Disease Active 2020-11 0-13 00:00: 00 [facility] Drug-seeki ng behavior Drug-seeki ng behavior Disease Active 2020-11 0-08 00:00: 00 [facility] Altered mental status Altered mental status Disease Active 8-24 00:00: 00 [facility] Obesity (BMI 30-39.9) Obesity (BMI 30-39.9) Disease Active 05-31 00:00: 00 [facility] Hypertensi ve urgency Hypertensi ve urgency Disease Active 05-31 00:00: 00 [facility] Allergies, Adverse Reactions, Alerts Allergy Name Allergy Type Status Severity Reaction(s) Onset Date Inactive Date Treating Clinician Comments Source Unable to Assess DA Active U 08-10 00:00: 00 [facility] No Known Drug Allergie s DA Active U 08-10 00:00: 00 [facility] NO KNOWN ALLERGIE S Drug Class Active [facility] Family History Family Member Diagnosis Comments Start Date Stop Date Sourc e Natural daughter Coronary Heart Disease [facility] Natural mother Coronary Heart Disease [facility] Natural mother Heart Unive [facility] Social History Social Habit Start Date Stop Date Quantity Comments Source History SDOH Alcohol Binge [facility] History SDOH Alcohol Comment [facility] History of tobacco use Passive smoker [facility] Gender identity [facility] Alcoholic beverage intake 2024-08-27 00:00:00 2024-08-27 00:00:00 Ex-drinker (finding) [facility] Cigarettes smoked current (pack per day) - Reported 2024-08-09 00:00:00 2024-08-09 00:00:00 [facility] Cigarette pack-years 2024-08-09 00:00:00 2024-08-09 00:00:00 [facility] Tobacco use and exposure 2024-08-09 00:00:00 2024-08-09 00:00:00 Smokeless tobacco non-user [facility] Alcohol intake 2024-03-18 00:00:00 2024-03-18 00:00:00 Ex-drinker (finding) [facility] History of Social function 2024-01-14 00:00:00 2024-01-14 00:00:00 [facility] Exposure to SARS-CoV-2 (event) 2023-04-07 00:00:00 2023-04-17 09:48:00 Not sure [facility] History SDOH Alcohol Frequency 2019-07-17 00:00:00 2019-07-17 00:00:00 5 [facility] History SDOH Alcohol Std Drinks 2019-07-17 00:00:00 2019-07-17 00:00:00 3 [facility] Education 2019-05-31 00:00:00 2019-05-31 00:00:00 7 [facility] History SDOH Financial 2019-05-31 00:00:00 2019-05-31 00:00:00 1 [facility] History SDOH Transport Med 2019-05-31 00:00:00 2019-05-31 00:00:00 1 [facility] History SDOH Transport Non-Med 2019-05-31 00:00:00 2019-05-31 00:00:00 1 [facility] Sex assigned at 1960 00:00:00 1960 00:00:00 [facility] Smoking Status Start Date Stop Date Source Smokes tobacco daily 2024-08-09 00:00:00 [facility] Medications Ordered Medication Name Filled Medication Name Start Date Stop Date Current Medication? Ordering Clinician Indication Dosage Frequency Signature (SIG) Comments Components Source clonazePAM 1 mg tablet 2023-11 00:00: 00 08-30 00:00 :00 Yes [id number] 1mg Take 1 tablet by mouth every morning and evening. [facility] clonazePAM (KLONOPIN) 1 mg tablet 2023-11 0-05 00:00: 00 Yes [id number] 1mg Take 1 tablet by mouth in the morning and 1 tablet in the evening. [facility] methocarbam oL 500 mg tablet 2023-11 0-04 00:00: 00 09-02 04:59 :00 Yes [id number] 500mg Take 1 tablet by mouth 4 (four) times daily as needed for Pain (scale 7-10) for up to 5 days. [facility] clonazePAM 1 mg tablet 08-23 00:00: 00 Yes [id number] 1mg Take 1 tablet by mouth in the morning and 1 tablet in the evening. [facility] clonazePAM (KLONOPIN) tablet 1 mg 08-22 02:36: 08-22 02:39 :00 No 1mg 1 mg, Oral, ONCE, 1 dose, On 08/21/24 at 2145, Routine [facility] clonazePAM 1 mg tablet 08-21 00:00: 00 08-23 00:00 :00 No [id number] 1mg Take 1 tablet by mouth in the morning and 1 tablet in the evening. [facility] HYDROcodone -acetaminop hen 7.5-325 mg per tablet 08-16 00:00: 00 Yes [id number] 1{tbl} Take 1 tablet by mouth every 6 (six) hours as needed for Pain. Indication s: chronic pain [facility] VENLAFAXINE 75 mg tablet 08-06 00:00: 00 Yes [id number] TAKE 1 TABLET BY MOUTH IN THE MORNING AND 1 TABLET BY MOUTH IN THE EVENING [facility] HYDROcodone -acetaminop hen 7.5-325 mg per tablet 07-15 00:00: 00 08-16 00:00 :00 No [id number] 1{tbl} Take 1 tablet by mouth every 6 (six) hours as needed for Pain. Indication s: chronic pain [facility] clonazePAM (KLONOPIN) 1 mg tablet 06-14 00:00: 00 08-28 00:00 :00 No [id number] 1mg Take 1 tablet by mouth in the morning and 1 tablet in the evening. [facility] HYDROcodone -acetaminop hen 7.5-325 mg per tablet 06-14 00:00: 00 07-15 00:00 :00 No [id number] 1{tbl} Take 1 tablet by mouth every 6 (six) hours as needed for Pain. Indication s: chronic pain [facility] HYDROcodone -acetaminop hen 7.5-325 mg per tablet 05-13 00:00: 00 06-14 00:00 :00 No [id number] 1{tbl} Take 1 tablet by mouth every 6 (six) hours as needed for Pain. Indication s: chronic pain [facility] clonazePAM (KLONOPIN) 1 mg tablet 04-14 00:00: 00 06-14 00:00 :00 No [id number] 1mg Take 1 tablet by mouth in the morning and 1 tablet in the evening. [facility] HYDROcodone -acetaminop hen 7.5-325 mg per tablet 04-14 00:00: 00 05-13 00:00 :00 No [id number] 1{tbl} Take 1 tablet by mouth every 6 (six) hours as needed for Pain for up to 30 days. Indication s: chronic pain [facility] traZODone 50 mg tablet 04-12 00:00: 00 Yes [id number] 25mg Take 0.5 tablets by mouth at bedtime. [facility] amLODIPine (NORVASC) 10 mg tablet 04-12 00:00: 00 Yes [id number] 10mg Take 1 tablet by mouth in the morning. [facility] HYDROcodone -acetaminop hen 10-325 mg tablet 04-12 00:00: 00 04-14 00:00 :00 No [id number] 1{tbl} Take 1 tablet by mouth every 6 (six) hours as needed for Pain (scale 4-6). Indication s: chronic pain [facility] clonazePAM 2 mg tablet 04-12 00:00: 00 04-14 00:00 :00 No [id number] TAKE ONE (1) TABLET(S) BY MOUTH EVERY MORNING AND EVENING. [facility] ketorolac (TORADOL) injection 15 mg 04-08 19:00: 00 04-08 18:50 :00 No 15mg 15 mg, Intramuscu lar, ONCE NOW, 1 dose, On Jania 04/08/24 at 1400, Routine [facility] atorvastati n 20 mg tablet 5-14 00:00: 00 Yes [id number] 20mg Take 1 tablet by mouth in the morning. [facility] losartan 100 mg tablet 4-29 00:00: 00 Yes [id number] 100mg Take 1 tablet by mouth in the morning. [facility] albuterol 90 mcg/actuati on inhaler 03-18 00:00: 00 Yes [id number] INHALE 2 PUFFS BY MOUTH EVERY 4 HOURS NEEDED FOR WHEEZING [facility] lactulose 10 gram/15 mL solution 03-18 00:00: 00 Yes [id number] TAKE 15 ML BY MOUTH EVERY DAY NEEDED FOR CONSTIPATI ON [facility] potassium chloride 10 mEq CR tablet 03-15 00:00: 00 Yes [id number] 10meq Take 1 tablet by mouth in the morning. [facility] clonazePAM 2 mg tablet 03-15 00:00: 00 04-12 00:00 :00 No [id number] TAKE ONE (1) TABLET(S) BY MOUTH EVERY MORNING AND EVENING. [facility] HYDROcodone -acetaminop hen 10-325 mg tablet 03-15 00:00: 00 04-12 00:00 :00 No [id number] 1{tbl} Take 1 tablet by mouth every 6 (six) hours as needed for Pain (scale 4-6). Indication s: chronic pain [facility] HYDROcodone -acetaminop hen 10-325 mg tablet 02-10 00:00: 00 03-15 00:00 :00 No [id number] 1{tbl} Take 1 tablet by mouth every 6 (six) hours as needed for Pain (scale 4-6). Indication s: chronic pain [facility] pantoprazol e 20 mg EC tablet 01-14 00:00: 00 Yes [id number] 20mg Take 1 tablet by mouth in the morning. [facility] venlafaxine 75 mg tablet 01-14 00:00: 00 08-06 00:00 :00 No [id number] 75mg Take 1 tablet by mouth in the morning and 1 tablet in the evening. [facility] traZODone 50 mg tablet 01-14 00:00: 00 04-12 00:00 :00 No [id number] 25mg Take 0.5 tablets by mouth at bedtime. [facility] HYDROcodone -acetaminop hen 10-325 mg tablet - 00:00: 00 02-10 00:00 :00 No [id number] 1{tbl} Take 1 tablet by mouth every 6 (six) hours as needed for Pain (scale 4-6). Indication s: chronic pain [facility] lactulose 10 gram/15 mL solution 12-15 00:00: 00 03-18 00:00 :00 No [id number] TAKE 15 ML BY MOUTH EVERY DAY NEEDED FOR CONSTIPATI ON [facility] HYDROcodone -acetaminop hen 10-325 mg tablet 12-15 00:00: 00 01-14 00:00 :00 No [id number] 1{tbl} Take 1 tablet by mouth every 6 (six) hours as needed for Pain (scale 4-6). Indication s: chronic pain [facility] hydroCHLORO thiazide 25 mg tablet 2022-11 00:00: 00 Yes [id number] 25mg Take 1 tablet by mouth in the morning. [facility] amLODIPine (NORVASC) 10 mg tablet 2022-11 00:00: 00 04-12 00:00 :00 No [id number] 10mg Take 1 tablet by mouth in the morning. [facility] atorvastati n 20 mg tablet 2022-11 00:00: 00 04-06 00:00 :00 No [id number] 20mg Take 1 tablet by mouth in the morning. [facility] HYDROcodone -acetaminop hen 10-325 mg tablet 2022-11- 00:00: 00 12-15 00:00 :00 No [id number] 1{tbl} Take 1 tablet by mouth every 6 (six) hours as needed for Pain (scale 4-6). Indication s: chronic pain [facility] HYDROcodone -acetaminop hen 10-325 mg tablet 2022-11- 00:00: 00 11-12 00:00 :00 No [id number] 1{tbl} Take 1 tablet by mouth every 6 (six) hours as needed for Pain (scale 4-6). Indication s: chronic pain [facility] HYDROcodone -acetaminop hen 10-325 mg tablet 2022-11 00:00: 00 10-10 00:00 :00 No [id number] 1{tbl} Take 1 tablet by mouth every 6 (six) hours as needed for Pain (scale 4-6). Indication s: chronic pain [facility] budesonide- formoteroL (SYMBICORT) 160-4.5 mcg/actuati on inhaler 2022-11 00:00: 00 Yes [id number] 2{puff} Inhale 2 Puffs in the morning and 2 Puffs in the evening. [facility] albuterol 90 mcg/actuati on inhaler 2022-11 00:00: 00 03-18 00:00 :00 No [id number] INHALE 2 PUFFS BY MOUTH EVERY 4 HOURS NEEDED FOR WHEEZING [facility] clonazePAM 2 mg tablet 2022-11 00:00: 00 03-15 00:00 :00 No [id number] 2mg Take 1 tablet by mouth every morning and evening. [facility] hydroCHLORO thiazide 25 mg tablet 2022-11 00:00: 00 11-12 00:00 :00 No [id number] 25mg Take 1 tablet by mouth in the morning. [facility] atorvastati n 20 mg tablet 2022-11 00:00: 00 11-12 00:00 :00 No [id number] 20mg Take 1 tablet by mouth in the morning. [facility] amLODIPine (NORVASC) 10 mg tablet 2022-11 00:00: 00 11-12 00:00 :00 No [id number] 10mg Take 1 tablet by mouth in the morning. [facility] LACTULOSE 10 gram/15 mL solution 2022-11 019 00:00: 00 12-15 00:00 :00 No [id number] TAKE 15 ML BY MOUTH EVERY DAY NEEDED FOR CONSTIPATI ON [facility] HYDROcodone -acetaminop hen 10-325 mg tablet 2022-11 00:00: 00 10-09 00:00 :00 No [id number] 1{tbl} Take 1 tablet by mouth every 6 (six) hours as needed for Pain (scale 4-6). Indication s: chronic pain [facility] hydroCHLORO thiazide 25 mg tablet 2022-11 00:00: 00 10-02 00:00 :00 No [id number] 25mg Take 1 tablet by mouth in the morning. [facility] HYDROcodone -acetaminop hen 10-325 mg tablet 2022-11 00:00: 00 09-10 00:00 :00 No [id number] 1{tbl} Take 1 tablet by mouth every 6 (six) hours as needed for Pain (scale 4-6). Indication s: chronic pain [facility] CLONAZEPAM 2 mg tablet 08-18 00:00: 00 10-02 00:00 :00 No [id number] 2mg TAKE 1 TABLET BY MOUTH IN THE MORNING AND IN THE EVENING [facility] atorvastati n 20 mg tablet 08-11 00:00: 00 10-02 00:00 :00 No [id number] 20mg Take 1 tablet by mouth in the morning. [facility] azithromyci n 250 mg tablet 08-06 00:00: 00 Yes [id number] 250mg Take 1 tablet by mouth in the morning. Take 500 mg day 1, then 250 mg days 2 to 5. [facility] venlafaxine 75 mg tablet 08-06 00:00: 00 01-14 00:00 :00 No [id number] 75mg Take 1 tablet by mouth in the morning and 1 tablet in the evening. [facility] HYDROcodone -acetaminop hen 10-325 mg tablet 08-06 00:00: 00 09-04 00:00 :00 No [id number] 1{tbl} Take 1 tablet by mouth every 6 (six) hours as needed for Pain (scale 4-6). Indication s: chronic pain [facility] HYDROcodone -acetaminop hen 10-325 mg tablet 16 00:00: 00 08-06 00:00 :00 No [id number] 1{tbl} Take 1 tablet by mouth every 6 (six) hours as needed for Pain (scale 4-6). Indication s: chronic pain [facility] SYMBICORT 160-4.5 mcg/actuati on inhaler 06-24 00:00: 00 10-02 00:00 :00 No [id number] 2{puff} Inhale 2 Puffs in the morning and 2 Puffs in the evening. [facility] budesonide- formoteroL (SYMBICORT) 160-4.5 mcg/actuati on inhaler 06-20 00:00: 00 06-24 00:00 :00 No [id number] 2{puff} Inhale 2 Puffs in the morning and 2 Puffs in the evening. [facility] losartan 100 mg tablet 06-09 00:00: 00 03-20 00:00 :00 No [id number] 100mg Take 1 tablet by mouth in the morning. [facility] pantoprazol e 20 mg EC tablet 06-09 00:00: 00 01-14 00:00 :00 No [id number] 20mg Take 1 tablet by mouth in the morning. [facility] albuterol 90 mcg/actuati on inhaler 06-09 00:00: 00 10-02 00:00 :00 No [id number] INHALE 2 PUFFS BY MOUTH EVERY 4 HOURS NEEDED FOR WHEEZING [facility] lactulose 10 gram/15 mL solution 06-09 00:00: 00 09-11 00:00 :00 No [id number] TAKE 15 ML BY MOUTH EVERY DAY NEEDED FOR CONSTIPATI ON [facility] hydroCHLORO thiazide 25 mg tablet 06-09 00:00: 00 09-08 00:00 :00 No [id number] 25mg Take 1 tablet by mouth in the morning. [facility] venlafaxine 75 mg tablet 06-09 00:00: 00 08-06 00:00 :00 No [id number] 75mg Take 1 tablet by mouth in the morning and 1 tablet in the evening. [facility] HYDROcodone -acetaminop hen 10-325 mg tablet 06-09 00:00: 00 07-09 00:00 :00 No [id number] 1{tbl} Take 1 tablet by mouth every 6 (six) hours as needed for Pain (scale 4-6). Indication s: chronic pain [facility] CLONAZEPAM 2 mg tablet 05-28 00:00: 00 08-18 00:00 :00 No [id number] NEED ESCRIPT TAKE ONE TABLET BY MOUTH TWICE DAILY @ 9AM & 5PM [facility] triamcinolo ne acetonide (KENALOG) injection 40 mg 05-22 16:15: 00 05-22 15:05 :00 No [id number] 40mg [facility] fluconazole (DIFLUCAN) 150 mg tablet 04-19 00:00: 00 Yes [id number] Take one tablet; wait 72 hours and take 2nd tablet; wait 72 hours and take 3rd tablet. [facility] cefdinir 300 mg capsule 04-15 00:00: 00 04-26 04:59 :00 No [id number] 600mg Take 2 capsules by mouth in the morning for 10 days. [facility] dexAMETHaso ne (DECADRON) tablet 8 mg 04-10 03:15: 00 04-10 02:36 :00 No 8mg 8 mg, Oral, ONCE NOW, 1 dose, On Fri04/09/23 at 2215, Routine [facility] meloxicam 7.5 mg tablet 04-08 00:00: 00 Yes [id number] 7.5mg Take 1 tablet by mouth in the morning. [facility] HYDROcodone -acetaminop hen 10-325 mg tablet 03-26 00:00: 00 06-09 00:00 :00 No [id number] 1{tbl} Take 1 tablet by mouth every 6 (six) hours as needed for Pain (scale 4-6). Indication s: chronic pain [facility] albuterol 90 mcg/actuati on inhaler 03-26 00:00: 06-09 00:00 :00 No [id number] INHALE 2 PUFFS BY MOUTH EVERY 4 HOURS NEEDED FOR WHEEZING [facility] lactulose 10 gram/15 mL solution 03-26 00:00: 06-09 00:00 :00 No [id number] TAKE 15 ML BY MOUTH EVERY DAY NEEDED FOR CONSTIPATI ON [facility] sulfamethox azole-trime thoprim (BACTRIM DS) 800-160 mg per tablet 03-05 00:00: 00 Yes [id number] 1{tbl} Take 1 tablet by mouth in the morning and 1 tablet in the evening. [facility] HYDROcodone -acetaminop hen 10-325 mg tablet 03-05 00:00: 00 03-26 00:00 :00 No [id number] 1{tbl} Take 1 tablet by mouth every 6 (six) hours as needed for Pain (scale 4-6). Indication s: chronic pain [facility] clonazePAM 2 mg tablet 03-04 00:00: 00 05-28 00:00 :00 No [id number] 2mg Take 1 tablet by mouth in the morning and 1 tablet in the evening. [facility] albuterol 90 mcg/actuati on inhaler 03-04 00:00: 00 03-26 00:00 :00 No [id number] INHALE 2 PUFFS BY MOUTH EVERY 4 HOURS NEEDED FOR WHEEZING [facility] triamcinolo ne acetonide (KENALOG) injection 40 mg 02-27 05:00: 00 02-27 16:59 :00 No [id number] 40mg [facility] hydroCHLORO thiazide 25 mg tablet 02-24 00:00: 00 06-09 00:00 :00 No [id number] 25mg Take 1 tablet by mouth in the morning. [facility] ketorolac (TORADOL) injection 30 mg 02-19 18:15: 00 02-19 19:08 :00 No 30mg 30 mg, Intramuscu lar, ONCE, 1 dose, On Fri02/19/23 at 1315, Routine [facility] dexamethaso ne (DECADRON PHOSPHATE) injection 10 mg 02-19 18:15: 00 02-19 18:15 :00 No 10mg 10 mg, Oral, ONCE, 1 dose, On Fri02/19/23 at 1315, Routine [facility] methocarbam oL (ROBAXIN) tablet 1,500 mg 02-19 17:15: 00 02-19 19:07 :00 No 1500mg 1,500 mg, Oral, ONCE, 1 dose, On Fri02/19/23 at 1215, QAMAR [facility] ketorolac 10 mg tablet 02-19 00:00: 00 04-08 00:00 :00 No [id number] 10mg Take 1 tablet by mouth every 6 (six) hours as needed for Pain (scale 7-10). [facility] methocarbam oL 500 mg tablet 02-19 00:00: 00 02-27 04:59 :00 No [id number] 500mg Take 1 tablet by mouth 4 (four) times daily for 7 days. [facility] ibuprofen 800 mg tablet 02-03 00:00: 00 Yes [id number] 800mg Take 1 tablet by mouth every 6 (six) hours as needed for Pain (scale 4-6). [facility] HYDROcodone -acetaminop hen 10-325 mg tablet 02-03 00:00: 00 03-05 00:00 :00 No [id number] 1{tbl} Take 1 tablet by mouth every 6 (six) hours as needed for Pain (scale 4-6). Indication s: chronic pain [facility] LOSARTAN 100 mg tablet 01-28 00:00: 00 06-09 00:00 :00 No [id number] 100mg TAKE 1 TABLET BY MOUTH IN THE MORNING [facility] pantoprazol e 20 mg EC tablet 2 00:00: 06-09 00:00 :00 No [id number] 20mg Take 1 tablet by mouth in the morning. [facility] albuterol 90 mcg/actuati on inhaler 2- 00:00: 03-04 00:00 :00 No [id number] INHALE 2 PUFFS BY MOUTH EVERY 4 HOURS NEEDED FOR WHEEZING [facility] HYDROcodone -acetaminop hen 10-325 mg tablet - 00:00: 00 02-03 00:00 :00 No [id number] 1{tbl} Take 1 tablet by mouth every 6 (six) hours as needed for Pain (scale 4-6). Indication s: chronic pain [facility] ibuprofen 800 mg tablet - 00:00: 00 02-03 00:00 :00 No [id number] 800mg Take 1 tablet by mouth every 6 (six) hours as needed for Pain (scale 4-6). [facility] pantoprazol e 20 mg EC tablet - 00:00: 00 12-31 00:00 :00 No [id number] 20mg Take 1 tablet by mouth in the morning. [facility] albuterol 90 mcg/actuati on inhaler 1- 00:00: 00 12-30 00:00 :00 No [id number] INHALE 2 PUFFS BY MOUTH EVERY 4 HOURS NEEDED FOR WHEEZING [facility] HYDROcodone -acetaminop hen 10-325 mg tablet 1-04 00:00: 00 12-30 00:00 :00 No [id number] 1{tbl} Take 1 tablet by mouth every 6 (six) hours as needed for Pain (scale 4-6) for up to 7 days. Indication s: chronic pain [facility] amLODIPine (NORVASC) 10 mg tablet 2021-11 2- 00:00: 00 10-02 00:00 :00 No [id number] 10mg Take 1 tablet by mouth in the morning. [facility] lactulose 10 gram/15 mL solution 2021-11 00:00: 03-26 00:00 :00 No TAKE 15 ML BY MOUTH EVERY DAY NEEDED FOR CONSTIPATI ON [facility] HYDROcodone -acetaminop hen 10-325 mg tablet 2021-11 00:00: 11-05 05:59 :00 No [id number] 1{tbl} Take 1 tablet by mouth every 6 (six) hours as needed for Pain (scale 4-6) for up to 7 days. Indication s: chronic pain [facility] amLODIPine (NORVASC) 5 mg tablet 2021-11 00:00: 00 10-30 00:00 :00 No [id number] 5mg Take 1 tablet by mouth in the morning. [facility] albuterol 90 mcg/actuati on inhaler 2021-11 00:00: 00 11-27 00:00 :00 No [id number] INHALE 2 PUFFS BY MOUTH EVERY 4 HOURS NEEDED FOR WHEEZING [facility] HYDROcodone -acetaminop hen 7.5-325 mg per tablet 2021-11 00:00: 00 10-03 05:59 :00 No 2745 1{tbl} Take 1 tablet by mouth every 6 (six) hours as needed for Pain for up to 7 days. Indication s: chronic pain [facility] venlafaxine 75 mg tablet 2021-11- 00:00: 00 06-09 00:00 :00 No [id number] 75mg Take 1 tablet by mouth in the morning and 1 tablet in the evening. [facility] clonazePAM 2 mg tablet 2021-11- 00:00: 00 03-04 00:00 :00 No [id number] 2mg Take 1 tablet by mouth in the morning and 1 tablet in the evening. [facility] pantoprazol e 20 mg EC tablet 2021-11 0- 00:00: 00 12-30 00:00 :00 No [id number] 20mg Take 1 tablet by mouth in the morning. [facility] albuterol 90 mcg/actuati on inhaler 2021-11 00:00: 00 09-25 00:00 :00 No [id number] INHALE 2 PUFFS BY MOUTH EVERY 4 HOURS NEEDED FOR WHEEZING [facility] HYDROcodone -acetaminop hen 7.5-325 mg per tablet 2021-11 00:00: 00 09-10 04:59 :00 No [id number] 1{tbl} Take 1 tablet by mouth every 8 (eight) hours as needed for Pain for up to 7 days. Indication s: chronic pain [facility] NaCl 0.9% (NS) IV infusion 1,000 mL 2021-11 17:45: 00 09-01 18:21 :00 No 1000mL at 999 mL/hr, Intravenou s, ONCE, 1 dose, On Fri09/01/22 at 1245, QAMAR [facility] cloNIDine (CATAPRES) tablet 0.1 mg 2021-11 17:30: 00 09-01 17:21 :00 No .1mg 0.1 mg, Oral, ONCE, 1 dose, On Fri09/01/22 at 1230, STAT [facility] LORazepam (ATIVAN) tablet 2 mg 2021-11 16:30: 00 09-01 17:11 :00 No 2mg 2 mg, Oral, ONCE, 1 dose, On Fri09/01/22 at 1130, QAMAR [facility] iopamidol (ISOVUE 370-500 mL) injection 80 mL 2021-11 15:45: 00 09-01 16:00 :00 No [id number] 80mL 80 mL, Intravenou s, ONCE, 1 dose, On Fri09/01/22 at 1100, Routine [facility] ondansetron (ZOFRAN (PF)) injection 4 mg 2021-11 14:30: 00 09-01 14:21 :00 No 4mg 4 mg, Slow IV Push, ONCE, 1 dose, On Fri09/01/22 at 0930, QAMAR [facility] morpHINE (4 mg/mL) injection 4 mg 2021-11 0 14:30: 00 09-01 14:22 :00 No 4mg 4 mg, Slow IV Push, ONCE, 1 dose, On 09/01/22 at 0930, STAT [facility] HYDROcodone -acetaminop hen 7.5-325 mg per tablet 08-07 00:00: 00 08-15 04:59 :00 No [id number] 1{tbl} Take 1 tablet by mouth every 6 (six) hours as needed for Pain for up to 7 days. Indication s: chronic pain [facility] budesonide/ formoterol fumarate (SYMBICORT INHALE) 07-03 15:39: 24 07-03 00:00 :00 No Inhale. [facility] temazepam 15 mg capsule 07-03 15:36: 31 07-03 00:00 :00 No 15mg Take 15 mg by mouth at bedtime as needed for Insomnia. [facility] Venlafaxine 225 mg TR24 07-03 15:34: 06 07-03 00:00 :00 No 75mg Take 75 mg by mouth every morning. [facility] losartan 100 mg tablet 07-03 00:00: 00 01-28 00:00 :00 No [id number] 100mg Take 1 tablet by mouth in the morning. [facility] venlafaxine 75 mg tablet 07-03 00:00: 00 09-02 00:00 :00 No [id number] 75mg Take 1 tablet by mouth in the morning and 1 tablet in the evening. [facility] pantoprazol e 20 mg EC tablet 07-03 00:00: 00 09-02 00:00 :00 No [id number] 20mg Take 1 tablet by mouth in the morning. [facility] clonazePAM 2 mg tablet 07-03 00:00: 00 09-02 00:00 :00 No [id number] 2mg Take 1 tablet by mouth in the morning and 1 tablet in the evening. [facility] albuterol 90 mcg/actuati on inhaler 07-03 00:00: 00 09-02 00:00 :00 No [id number] INHALE 2 PUFFS BY MOUTH EVERY 4 HOURS NEEDED FOR WHEEZING [facility] HYDROcodone -acetaminop hen 7.5-325 mg per tablet 07-03 00:00: 00 07-11 04:59 :00 No [id number] 1{tbl} Take 1 tablet by mouth every 8 (eight) hours as needed for Pain for up to 7 days. Indication s: chronic pain [facility] ALBUTEROL 90 mcg/actuati on inhaler 5-17 00:00: 00 07-03 00:00 :00 No [id number] INHALE 2 PUFFS BY MOUTH EVERY 4 HOURS NEEDED FOR WHEEZING [facility] acetaminoph en-codeine (TYLENOL-CO DEINE #3) 300-30 mg tablet 4-21 00:00: 00 07-03 00:00 :00 No [id number] 1{tbl} Take 1 tablet by mouth every 4 (four) hours as needed for Pain (scale 4-6) or Pain (scale 7-10). Indication s: acute pain [facility] traMADoL 50 mg tablet 4-14 00:00: 00 07-03 00:00 :00 No [id number] 50mg Take 1 tablet by mouth every 4 (four) hours as needed for Pain (scale 7-10). Indication s: acute pain [facility] pentazocine -naloxone 50-0.5 mg tablet 4-11 00:00: 00 07-03 00:00 :00 No [id number] 1{tbl} Take 1 tablet by mouth every 4 (four) hours as needed for Pain. Indication s: acute pain [facility] diclofenac 75 mg EC tablet 2020-11 2-16 00:00: 00 12-30 00:00 :00 No [id number] 75mg Take 1 tablet by mouth 2 (two) times daily with meals. [facility] traMADoL 50 mg tablet 2020-11 2-09 00:00: 00 07-03 00:00 :00 No [id number] 50mg Take 1 tablet by mouth every 4 (four) hours as needed for Pain (scale 7-10). Indication s: acute pain [facility] METOPROLOL SUCCINATE XL 25 mg 24 hr tablet 2020-11 1-30 00:00: 00 07-03 00:00 :00 No TAKE 1 TABLET BY MOUTH TWICE DAILY [facility] budesonide- formoteroL (SYMBICORT) 160-4.5 mcg/actuati on inhaler 2020-11 0-13 00:00: 00 07-03 00:00 :00 No [id number] 2{puff} Inhale 2 Puffs 2 (two) times daily. [facility] pantoprazol e 20 mg EC tablet 2020-11 0- 00:00: 00 07-03 00:00 :00 No [id number] 20mg Take 1 tablet by mouth daily. [facility] losartan 100 mg tablet 2020-11 013 00:00: 00 07-03 00:00 :00 No [id number] 100mg Take 1 tablet by mouth daily. [facility] Diclofenac Sodium (VOLTAREN) 1 % gel 2020-11 0-07 00:00: 00 07-03 00:00 :00 No [id number] Apply to area(s) 2 (two) times daily. [facility] OLANZapine 10 mg tablet 9-29 00:00: 00 07-03 00:00 :00 No 10mg Take 10 mg by mouth every morning. [facility] ARIPiprazol e 2 mg tablet 6-12 00:00: 00 07-03 00:00 :00 No [facility] clonazePAM 2 mg tablet 5-05 00:00: 00 07-03 00:00 :00 No [facility] Vital Signs Vital Name Observation Time Observation Value Comments S ource Systolic blood pressure 2024-08-27 14:21:00 137 mm[Hg] [facility] Diastolic blood pressure 2024-08-27 14:21:00 82 mm[Hg] [facility] Heart rate 2024-08-27 14:21:00 94 /min [facility] Respiratory rate 2024-08-27 14:21:00 18 /min [facility] Body height 2024-08-27 14:21:00 154.9 cm [facility] Body weight 2024-08-27 14:21:00 73.029 kg [facility] BMI 2024-08-27 14:21:00 30.42 kg/m2 [facility] Oxygen saturation in Arterial blood by Pulse oximetry 2024-08-27 14:21:00 95 /min [facility] Systolic blood pressure 2024-08-22 02:32:00 137 mm[Hg] [facility] Diastolic blood pressure 2024-08-22 02:32:00 85 mm[Hg] [facility] Heart rate 2024-08-22 02:32:00 91 /min [facility] Body temperature 2024-08-22 02:32:00 37.28 [place] [facility] Respiratory rate 2024-08-22 02:32:00 16 /min [facility] Oxygen saturation in Arterial blood by Pulse oximetry 2024-08-22 02:32:00 96 /min [facility] Body height 2024-08-22 00:10:00 154.9 cm [facility] Body weight 2024-08-22 00:10:00 68.04 kg [facility] BMI 2024-08-22 00:10:00 28.34 kg/m2 [facility] Systolic blood pressure 2024-08-16 14:21:00 143 mm[Hg] [facility] Diastolic blood pressure 2024-08-16 14:21:00 85 mm[Hg] [facility] Heart rate 2024-08-16 14:20:00 95 /min [facility] Body height 2024-08-16 14:20:00 154.9 cm [facility] Body weight 2024-08-16 14:20:00 78.019 kg [facility] BMI 2024-08-16 14:20:00 32.50 kg/m2 [facility] Oxygen saturation in Arterial blood by Pulse oximetry 2024-08-16 14:20:00 96 /min [facility] Systolic blood pressure 2024-08-09 14:37:00 134 mm[Hg] [facility] Diastolic blood pressure 2024-08-09 14:37:00 83 mm[Hg] [facility] Heart rate 2024-08-09 14:37:00 83 /min [facility] Oxygen saturation in Arterial blood by Pulse oximetry 2024-08-09 14:37:00 98 /min [facility] Respiratory rate 2024-08-09 14:35:00 16 /min [facility] Body height 2024-08-09 14:35:00 154.9 cm [facility] Body weight 2024-08-09 14:35:00 74.617 kg [facility] BMI 2024-08-09 14:35:00 31.08 kg/m2 [facility] Systolic blood pressure 2024-07-15 13:43:00 137 mm[Hg] [facility] Diastolic blood pressure 2024-07-15 13:43:00 86 mm[Hg] [facility] Heart rate 2024-07-15 13:42:00 92 /min [facility] Body height 2024-07-15 13:42:00 154.9 cm [facility] Body weight 2024-07-15 13:42:00 74.481 kg [facility] BMI 2024-07-15 13:42:00 31.03 kg/m2 [facility] Oxygen saturation in Arterial blood by Pulse oximetry 2024-07-15 13:42:00 100 /min [facility] Systolic blood pressure 2024-06-18 14:26:00 132 mm[Hg] [facility] Diastolic blood pressure 2024-06-18 14:26:00 86 mm[Hg] [facility] Heart rate 2024-06-18 14:25:00 102 /min [facility] Body height 2024-06-18 14:25:00 154.9 [facility] 2024-06-18 14:25:00 71.215 kg [facility] BMI 2024-06-18 14:25:00 29.66 kg/m2 [facility] Systolic blood pressure 2024-06-14 14:33:00 137 mm[Hg] [facility] Diastolic blood pressure 2024-06-14 14:33:00 84 mm[Hg] [facility] Heart rate 2024-06-14 14:33:00 90 /min [facility] Body height 2024-06-14 14:33:00 154.9 cm [facility] Body weight 2024-06-14 14:33:00 72.167 kg [facility] BMI 2024-06-14 14:33:00 30.06 kg/m2 [facility] Oxygen saturation in Arterial blood by Pulse oximetry 2024-06-14 14:33:00 95 /min [facility] Systolic blood pressure 2024-05-11 15:38:00 129 mm[Hg] [facility] Diastolic blood pressure 2024-05-11 15:38:00 85 mm[Hg] [facility] Heart rate 2024-05-11 15:38:00 75 [facility] Respiratory rate 2024-05-11 15:38:00 20 /min [facility] Body height 2024-05-11 15:38:00 154.9 cm [facility] Body weight 2024-05-11 15:38:00 70.761 kg [facility] BMI 2024-05-11 15:38:00 29.48 kg/m2 [facility] Oxygen saturation in Arterial blood by Pulse oximetry 2024-05-11 15:38:00 98 /min [facility] Systolic blood pressure 2024-04-28 17:32:00 150 mm[Hg] [facility] Diastolic blood pressure 2024-04-28 17:32:00 90 mm[Hg] [facility] Heart rate 2024-04-28 17:18:00 92 /min [facility] Body height 2024-04-28 17:18:00 154.9 cm [facility] Body weight 2024-04-28 17:18:00 73.165 kg [facility] BMI 2024-04-28 17:18:00 30.48 kg/m2 [facility] Oxygen saturation in Arterial blood by Pulse oximetry 2024-04-28 17:18:00 98 /min [facility] Systolic blood pressure 2024-04-12 17:06:00 139 mm[Hg] [facility] Diastolic blood pressure 2024-04-12 17:06:00 89 mm[Hg] [facility] Heart rate 2024-04-12 17:06:00 77 /min [facility] Body height 2024-04-12 17:06:00 154.9 cm [facility] Body weight 2024-04-12 17:06:00 75.615 kg [facility] BMI 2024-04-12 17:06:00 31.50 kg/m2 [facility] Oxygen saturation in Arterial blood by Pulse oximetry 2024-04-12 17:06:00 98 /min [facility] Systolic blood pressure 2024-04-08 18:21:30 114 mm[Hg] [facility] Diastolic blood pressure 2024-04-08 18:21:30 75 mm[Hg] [facility] Heart rate 2024-04-08 18:21:30 67 /min [facility] Respiratory rate 2024-04-08 18:21:30 16 /min [facility] Oxygen saturation in Arterial blood by Pulse oximetry 2024-04-08 18:21:30 95 /min [facility] Body temperature 2024-04-08 16:32:00 37 [place] [facility] Body height 2024-04-08 16:32:00 154.9 cm [facility] Body weight 2024-04-08 16:32:00 75.751 kg [facility] BMI 2024-04-08 16:32:00 31.55 [facility] blood pressure 2024-03-18 15:45:00 155 mm[Hg] [facility] Diastolic blood pressure 2024-03-18 15:45:00 93 mm[Hg] [facility] Heart rate 2024-03-18 15:44:00 100 /min [facility] Body height 2024-03-18 15:44:00 154.9 cm [facility] Body weight 2024-03-18 15:44:00 78.472 kg [facility] BMI 2024-03-18 15:44:00 32.69 kg/m2 [facility] Oxygen saturation in Arterial blood by Pulse oximetry 2024-03-18 15:44:00 97 /min [facility] Heart rate 2024-03-15 18:12:00 100 /min [facility] Body height 2024-03-15 18:12:00 154.9 cm [facility] Body weight 2024-03-15 18:12:00 77.474 kg [facility] BMI 2024-03-15 18:12:00 32.27 kg/m2 [facility] Oxygen saturation in Arterial blood by Pulse oximetry 2024-03-15 18:12:00 97 /min [facility] Systolic blood pressure 2024-03-15 18:12:00 140 mm[Hg] [facility] Diastolic blood pressure 2024-03-15 18:12:00 80 mm[Hg] [facility] Systolic blood pressure 2024-01-14 16:06:00 137 mm[Hg] [facility] Diastolic blood pressure 2024-01-14 16:06:00 85 mm[Hg] [facility] Heart rate 2024-01-14 16:05:00 92 /min [facility] Body height 2024-01-14 16:05:00 154.9 cm [facility] Body weight 2024-01-14 16:05:00 86.093 kg [facility] BMI 2024-01-14 16:05:00 35.86 kg/m2 [facility] Oxygen saturation in Arterial blood by Pulse oximetry 2024-01-14 16:05:00 94 /min [facility] Systolic blood pressure 2023-12-15 15:19:00 139 mm[Hg] [facility] Diastolic blood pressure 2023-12-15 15:19:00 89 mm[Hg] [facility] Heart rate 2023-12-15 15:19:00 102 /min [facility] Respiratory rate 2023-12-15 15:19:00 18 /min [facility] Body height 2023-12-15 15:19:00 154.9 cm [facility] Body weight 2023-12-15 15:19:00 86.501 kg [facility] BMI 2023-12-15 15:19:00 36.03 kg/m2 [facility] Oxygen saturation in Arterial blood by Pulse oximetry 2023-12-15 15:19:00 94 /min [facility] Systolic blood pressure 2023-11-12 15:54:00 124 mm[Hg] [facility] Diastolic blood pressure 2023-11-12 15:54:00 86 mm[Hg] [facility] Heart rate 2023-11-12 15:54:00 96 /min [facility] Body height 2023-11-12 15:54:00 157.5 cm [facility] Body weight 2023-11-12 15:54:00 84.641 kg [facility] BMI 2023-11-12 15:54:00 34.13 kg/m2 [facility] Oxygen saturation in Arterial blood by Pulse oximetry 2023-11-12 15:54:00 96 /min [facility] Systolic blood pressure 2023-10-02 18:23:00 163 mm[Hg] [facility] Diastolic blood pressure 2023-10-02 18:23:00 100 mm[Hg] [facility] Heart rate 2023-10-02 18:22:00 96 /min [facility] Respiratory rate 2023-10-02 18:22:00 18 /min [facility] Body height 2023-10-02 18:22:00 154.9 cm [facility] Body weight 2023-10-02 18:22:00 90.81 kg [facility] BMI 2023-10-02 18:22:00 37.83 kg/m2 [facility] Oxygen saturation in Arterial blood by Pulse oximetry 2023-10-02 18:22:00 97 /min [facility] Systolic blood pressure 2023-09-29 08:11:00 136 mm[Hg] [facility] Diastolic blood pressure 2023-09-29 08:11:00 90 mm[Hg] [facility] Heart rate 2023-09-29 08:11:00 87 /min [facility] Body temperature 2023-09-29 08:11:00 36.72 [place] [facility] Respiratory rate 2023-09-29 08:11:00 20 /min [facility] Body height 2023-09-29 08:11:00 154.9 cm [facility] Body weight 2023-09-29 08:11:00 87.091 kg [facility] BMI 2023-09-29 08:11:00 36.28 kg/m2 [facility] Oxygen saturation in Arterial blood by Pulse oximetry 2023-09-29 08:11:00 94 /min [facility] Systolic blood pressure 2023-09-04 15:33:00 132 mm[Hg] [facility] Diastolic blood pressure 2023-09-04 15:33:00 77 mm[Hg] [facility] Heart rate 2023-09-04 15:33:00 94 /min [facility] Body temperature 2023-09-04 15:33:00 36.28 [place] [facility] Body height 2023-09-04 15:33:00 154.9 cm [facility] Body weight 2023-09-04 15:33:00 87.317 kg [facility] BMI 2023-09-04 15:33:00 36.37 [facility] saturation in Arterial blood by Pulse oximetry 2023-09-04 15:33:00 95 /min [facility] Systolic blood pressure 2023-08-11 15:56:00 131 mm[Hg] [facility] Diastolic blood pressure 2023-08-11 15:56:00 86 mm[Hg] [facility] Heart rate 2023-08-11 15:56:00 101 /min [facility] 2023-08-11 15:56:00 35.56 [place] [facility] Respiratory rate 2023-08-11 15:56:00 19 /min [facility] Body height 2023-08-11 15:56:00 154.9 cm [facility] Body weight 2023-08-11 15:56:00 88.95 kg [facility] BMI 2023-08-11 15:56:00 37.05 kg/m2 [facility] Oxygen saturation in Arterial blood by Pulse oximetry 2023-08-11 15:56:00 93 /min [facility] Systolic blood pressure 2023-08-06 15:14:00 132 mm[Hg] [facility] Diastolic blood pressure 2023-08-06 15:14:00 78 mm[Hg] [facility] Heart rate 2023-08-06 15:13:00 91 /min [facility] 2023-08-06 15:13:00 18 /min [facility] Body height 2023-08-06 15:13:00 154.9 cm [facility] [facility] Body weight 2023-08-06 15:13:00 87.862 [facility] 2023-08-06 15:13:00 36.60 kg/m2 [facility] Oxygen saturation in Arterial blood by Pulse oximetry 2023-08-06 15:13:00 96 /min [facility] Systolic blood pressure 2023-07-09 20:14:00 139 mm[Hg] [facility] Diastolic blood pressure 2023-07-09 20:14:00 85 mm[Hg] [facility] Heart rate 2023-07-09 20:14:00 96 /min [facility] height 2023-07-09 20:14:00 154.9 cm [facility] Body weight 2023-07-09 20:14:00 80.74 kg [facility] BMI 2023-07-09 20:14:00 33.63 kg/m2 [facility] Oxygen saturation in Arterial blood by Pulse oximetry 2023-07-09 20:14:00 97 /min [facility] Systolic blood pressure 2023-06-20 14:45:00 114 mm[Hg] [facility] Diastolic blood pressure 2023-06-20 14:45:00 75 mm[Hg] [facility] Heart rate 2023-06-20 14:45:00 99 /min Unive [facility] Respiratory rate 2023-06-20 14:45:00 18 /min [facility] Body height 2023-06-20 14:45:00 154.9 cm [facility] Body weight 2023-06-20 14:45:00 81.364 kg [facility] BMI 2023-06-20 14:45:00 33.89 kg/m2 [facility] Oxygen saturation in Arterial blood by Pulse oximetry 2023-06-20 14:45:00 90 /min [facility] Systolic blood pressure 2023-06-09 17:45:00 136 mm[Hg] [facility] Diastolic blood pressure 2023-06-09 17:45:00 80 mm[Hg] [facility] Heart rate 2023-06-09 17:45:00 108 /min Unive [facility] Respiratory rate 2023-06-09 17:45:00 18 /min [facility] Body height 2023-06-09 17:45:00 154.9 cm [facility] Body weight 2023-06-09 17:45:00 79.425 kg [facility] BMI 2023-06-09 17:45:00 33.08 kg/m2 [facility] Oxygen saturation in Arterial blood by Pulse oximetry 2023-06-09 17:45:00 96 /min [facility] Systolic blood pressure 2023-04-17 15:28:00 112 mm[Hg] [facility] Diastolic blood pressure 2023-04-17 15:28:00 78 mm[Hg] [facility] Heart rate 2023-04-17 15:28:00 87 /min Unive [facility] Body temperature 2023-04-17 15:28:00 37.06 [place] [facility] Respiratory rate 2023-04-17 15:28:00 20 /min [facility] Body height 2023-04-17 15:28:00 154.9 cm [facility] Body weight 2023-04-17 15:28:00 77.202 kg [facility] BMI 2023-04-17 15:28:00 32.16 kg/m2 [facility] Oxygen saturation in Arterial blood by Pulse oximetry 2023-04-17 15:28:00 96 /min [facility] Systolic blood pressure 2023-04-15 19:23:00 145 mm[Hg] [facility] Diastolic blood pressure 2023-04-15 19:23:00 93 mm[Hg] [facility] Heart rate 2023-04-15 19:17:00 89 /min Unive [facility] Body temperature 2023-04-15 19:17:00 37 [place] [facility] Respiratory rate 2023-04-15 19:17:00 16 /min [facility] Body height 2023-04-15 19:17:00 154.9 cm [facility] Body weight 2023-04-15 19:17:00 78.019 kg [facility] BMI 2023-04-15 19:17:00 32.50 kg/m2 [facility] in Arterial blood by Pulse oximetry 2023-04-15 19:17:00 96 /min [facility] Systolic blood pressure 2023-04-13 22:55:00 132 mm[Hg] [facility] Diastolic blood pressure 2023-04-13 22:55:00 88 mm[Hg] [facility] Heart rate 2023-04-13 22:55:00 81 /min [facility] 2023-04-13 22:55:00 37.22 [place] [facility] Respiratory rate 2023-04-13 22:55:00 14 /min [facility] Body height 2023-04-13 22:55:00 154.9 cm [facility] weight 2023-04-13 22:55:00 81.647 kg [facility] 2023-04-13 22:55:00 34.01 kg/m2 [facility] Oxygen saturation in Arterial blood by Pulse oximetry 2023-04-13 22:55:00 99 /min [facility] Systolic blood pressure 2023-04-10 02:05:00 139 mm[Hg] [facility] Diastolic blood pressure 2023-04-10 02:05:00 73 mm[Hg] [facility] Heart rate 2023-04-10 02:05:00 87 /min Unive [facility] Body temperature 2023-04-10 02:05:00 37.06 [place] [facility] Respiratory rate 2023-04-10 02:05:00 20 /min [facility] Body height 2023-04-10 02:05:00 154.9 cm [facility] weight 2023-04-10 02:05:00 81.647 kg [facility] BMI 2023-04-10 02:05:00 34.01 kg/m2 [facility]xygen saturation in Arterial blood by Pulse oximetry 2023-04-10 02:05:00 98 /min [facility] Body height 2023-04-08 20:56:00 154.9 cm [facility] weight 2023-04-08 20:56:00 75.297 kg [facility] 2023-04-08 20:56:00 31.37 kg/m2 [facility] Systolic blood pressure 2023-03-26 20:08:00 139 mm[Hg] [facility] Diastolic blood pressure 2023-03-26 20:08:00 72 mm[Hg] [facility] Heart rate 2023-03-26 19:39:00 92 /min Unive [facility] Body height 2023-03-26 19:39:00 154.9 cm [facility] Body weight 2023-03-26 19:39:00 75.66 kg [facility] BMI 2023-03-26 19:39:00 31.52 kg/m2 [facility] Oxygen saturation in Arterial blood by Pulse oximetry 2023-03-26 19:39:00 95 /min [facility] Body weight 2023-02-27 15:35:00 80.74 kg [facility] BMI 2023-02-27 15:35:00 33.63 kg/m2 [facility] Systolic blood pressure 2023-02-24 16:36:00 132 mm[Hg] [facility] Diastolic blood pressure 2023-02-24 16:36:00 85 mm[Hg] [facility] Heart rate 2023-02-24 16:36:00 84 /[facility] Oxygen saturation in Arterial blood by Pulse oximetry 2023-02-24 16:36:00 96 /min [facility] Body temperature 2023-02-24 16:35:00 37.56 [place] [facility] Body height 2023-02-24 16:35:00 154.9 cm [facility] Body weight 2023-02-24 16:35:00 80.967 kg [facility] BMI 2023-02-24 16:35:00 33.73 kg/m2 [facility] Systolic blood pressure 2023-02-19 15:32:00 153 mm[Hg] [facility] Diastolic blood pressure 2023-02-19 15:32:00 100 mm[Hg] [facility] Heart rate 2023-02-19 15:32:00 87 /min Unive [facility] Body temperature 2023-02-19 15:32:00 37.11 [place] [facility] Respiratory rate 2023-02-19 15:32:00 18 /min [facility] Body weight 2023-02-19 15:32:00 82.555 kg [facility] BMI 2023-02-19 15:32:00 34.39 kg/m2 [facility] Oxygen saturation in Arterial blood by Pulse oximetry 2023-02-19 15:32:00 99 /min [facility] Systolic blood pressure 2023-02-03 19:38:00 155 mm[Hg] [facility] Diastolic blood pressure 2023-02-03 19:38:00 87 mm[Hg] [facility] Heart rate 2023-02-03 19:38:00 96 /min Unive [facility] Body height 2023-02-03 19:37:00 154.9 cm [facility] Body weight 2023-02-03 19:37:00 82.827 kg [facility] BMI 2023-02-03 19:37:00 34.50 kg/m2 [facility] Oxygen saturation in Arterial blood by Pulse oximetry 2023-02-03 19:37:00 97 /min [facility] Systolic blood pressure 2022-12-30 18:30:00 135 mm[Hg] [facility] Diastolic blood pressure 2022-12-30 18:30:00 85 mm[Hg] [facility] Heart rate 2022-12-30 18:30:00 90 /min Unive [facility] Body height 2022-12-30 18:30:00 154.9 cm [facility] Body weight 2022-12-30 18:30:00 79.878 kg [facility] BMI 2022-12-30 18:30:00 33.27 kg/m2 [facility] Oxygen saturation in Arterial blood by Pulse oximetry 2022-12-30 18:30:00 96 /min [facility] Systolic blood pressure 2022-11-27 19:49:00 144 mm[Hg] [facility] Diastolic blood pressure 2022-11-27 19:49:00 84 mm[Hg] [facility] Heart rate 2022-11-27 19:45:00 91 /min Unive [facility] Body height 2022-11-27 19:45:00 154.9 cm [facility] Body weight 2022-11-27 19:45:00 80.423 kg [facility] BMI 2022-11-27 19:45:00 33.50 kg/m2 [facility] Oxygen saturation in Arterial blood by Pulse oximetry 2022-11-27 19:45:00 98 /min [facility] Systolic blood pressure 2022-10-30 16:59:00 165 mm[Hg] [facility] Diastolic blood pressure 2022-10-30 16:59:00 95 mm[Hg] [facility] Heart rate 2022-10-30 16:59:00 73 /min Unive [facility] Oxygen saturation in Arterial blood by Pulse oximetry 2022-10-30 16:59:00 97 /min [facility] Body temperature 2022-10-30 16:57:00 36.39 [place] [facility] Respiratory rate 2022-10-30 16:57:00 16 /min [facility] Body height 2022-10-30 16:57:00 154.9 cm [facility] Body weight 2022-10-30 16:57:00 80.377 kg [facility] BMI 2022-10-30 16:57:00 33.48 kg/m2 [facility] Systolic blood pressure 2022-10-28 19:15:00 205 mm[Hg] [facility] Diastolic blood pressure 2022-10-28 19:15:00 103 mm[Hg] [facility] Heart rate 2022-10-28 19:14:00 89 /min Unive [facility] Body height 2022-10-28 19:14:00 154.9 cm [facility] Body weight 2022-10-28 19:14:00 84.369 kg [facility] BMI 2022-10-28 19:14:00 35.14 kg/m2 [facility] Oxygen saturation in Arterial blood by Pulse oximetry 2022-10-28 19:14:00 96 /min [facility] Systolic blood pressure 2022-09-25 18:22:00 178 mm[Hg] [facility] Diastolic blood pressure 2022-09-25 18:22:00 92 mm[Hg] [facility] Heart rate 2022-09-25 18:13:00 92 /min Unive [facility] Body height 2022-09-25 18:13:00 154.9 cm [facility] Body weight 2022-09-25 18:13:00 81.647 kg [facility] BMI 2022-09-25 18:13:00 34.01 kg/m2 [facility] Oxygen saturation in Arterial blood by Pulse oximetry 2022-09-25 18:13:00 97 /min [facility] Systolic blood pressure 2022-09-02 19:17:00 140 mm[Hg] [facility] Diastolic blood pressure 2022-09-02 19:17:00 80 mm[Hg] [facility] Heart rate 2022-09-02 19:17:00 106 /min Unive [facility] Body weight 2022-09-02 19:17:00 73.483 kg [facility] BMI 2022-09-02 19:17:00 30.61 kg/m2 [facility] Oxygen saturation in Arterial blood by Pulse oximetry 2022-09-02 19:17:00 97 /min [facility] Systolic blood pressure 2022-09-01 18:15:00 142 mm[Hg] [facility] Diastolic blood pressure 2022-09-01 18:15:00 71 mm[Hg] [facility] Heart rate 2022-09-01 18:15:00 93 /min Unive [facility] Respiratory rate 2022-09-01 18:15:00 19 /min [facility] Oxygen saturation in Arterial blood by Pulse oximetry 2022-09-01 18:15:00 98 /min [facility] Body temperature 2022-09-01 13:47:00 36.22 [place] [facility] Body weight 2022-09-01 13:47:00 83.008 kg [facility] BMI 2022-09-01 13:47:00 34.58 kg/m2 [facility] Systolic blood pressure 2022-07-03 20:15:00 156 mm[Hg] [facility] Diastolic blood pressure 2022-07-03 20:15:00 92 mm[Hg] [facility] Heart rate 2022-07-03 20:15:00 96 /min [facility] Body weight 2022-07-03 20:15:00 83.28 kg [facility] BMI 2022-07-03 20:15:00 34.69 kg/m2 [facility] Oxygen saturation in Arterial blood by Pulse oximetry 2022-07-03 20:15:00 97 /min [facility] Systolic blood pressure 2024-08-27 14:21:00 137 mm[Hg] [facility] Diastolic blood pressure 2024-08-27 14:21:00 82 mm[Hg] [facility] Heart rate 2024-08-27 14:21:00 94 /min [facility] Respiratory rate 2024-08-27 14:21:00 18 /min [facility] Body height 2024-08-27 14:21:00 154.9 cm [facility] Body weight 2024-08-27 14:21:00 73.029 kg [facility] BMI 2024-08-27 14:21:00 30.42 kg/m2 [facility] Oxygen saturation in Arterial blood by Pulse oximetry 2024-08-27 14:21:00 95 /min [facility] Body temperature 2024-08-22 02:32:00 37.28 [place] [facility] Procedures Procedure Date / Time Performed Performing Clinician Source XR KNEE 3 VW BILATERAL 2024-08-27 15:18:08 Amador Novoa [facility] XR KNEE 3 VW BILATERAL 2024-08-27 15:18:08 Amador Novoa [facility] XR ANKLE 3+ VW RIGHT 2024-08-27 15:17:56 Ynes Novoa [facility] XR ANKLE 3+ VW RIGHT 2024-08-27 15:17:56 Ynes Novoa [facility] TRANSTHORACIC ECHO (TTE) COMPLETE 2024-08-09 14:32:18 Mackenzie Beckwith [facility] TRANSTHORACIC ECHO (TTE) COMPLETE 2024-08-09 14:32:18 Mackenzie Beckwith [facility] GC & CHLAMYDIA AMPLIFIED ASSAY 2024-06-18 14:40:00 Dayton Calderon [facility] TRICHOMONAS AMPLIFIED ASSAY 2024-06-18 14:40:00 Dayton Calderon [facility] HOLTER MONITOR - 48 HOUR 2024-06-09 21:05:31 Angel Garcia [facility] XR LUMBAR SPINE 3 VW 2024-04-08 17:04:51 Richie Meza [facility] XR ELBOW <3 VW LEFT 2024-04-08 17:04:51 Dane Meza [facility] AUTHORIZATION FOR RELEASE OF PHI 2023-10-30 06:01:00 Doctor Unassigned, [place] [facility] CONSENT/REFUSAL FOR DIAGNOSIS AND TREATMENT 2023-09-29 08:23:02 Doctor Unassigned, [place] [facility] ASSIGNMENT OF BENEFITS 2023-09-29 08:22:17 Docto r Unassigned, [place] [facility] MEDICATION CORRESPONDENCE 2023-06-24 05:01:00 Do ctor Unassigned, [place] [facility] POCT URINALYSIS 2023-06-09 18:18:00 [facility] 2023-05-30 05:01:00 Doc tor Unassigned, [place] [facility] HCV ANTIBODY 2023-04-17 [facility]:40[facility]-AB WITH REFLEX 2023-04-17 16:40:00 Adum, Carol Mcleod [facility] HIGH RISK HPV-THIN PREP 2023-04-17 16:00:00 Adum, Ju Mcleod [facility] PAP SMEAR-LIQUID BASED-CP 2023-04-17 16:00:00 Adum, Carol Mcleod [facility] LAB ONLY PAP SMEAR-LIQUID BASED 2023-04-17 16:00:00 Adum, Ellie Mcleod [facility] HIGH RISK HPV-THIN PREP 2023-04-17 16:00:00 Adum, Ju Mcleod [facility] PAP SMEAR-LIQUID BASED-CP 2023-04-17 16:00:00 Adum, Carol Mcleod [facility] POCT TEST 2023-04-17 00:00:00 Adum, Ellie Mcleod [facility] POCT URINALYSIS 2023-04-15 19:29:00 Prosper Sims [facility] POCT TEST 2023-04-15 19:28:00 Stephane Snow [facility] ASSIGNMENT OF BENEFITS 2023-04-13 23:45:56 Docto r Unassigned, [place] [facility] URINALYSIS 2023-04-13 [facility]:24[facility]REATMENT 2023-04-13 22:45:01 Doctor Unassigned, [place] [facility] NOTICE OF PRIVACY PRACTICES 2023-04-10 01:57:37 Doctor Unassigned, [place] [facility] POCT URINALYSIS 2023-02-24 00:00:00 Nghia Menendez [facility] XR LUMBAR SPINE 3 VW 2023-02-19 17:37:06 Lydia Andrade [facility] XR KNEE 3 VW LEFT 2023-02-19 17:37:06 Quentin Andrade [facility] CONSENT/REFUSAL FOR DIAGNOSIS AND TREATMENT 2023-02-19 15:29:06 Doctor Unassigned, [place] [facility] PATIENT FINANCIAL POLICY 2023-02-03 18:57:26 Doctor Unassigned, [place] [facility] MEDICATION CORRESPONDENCE 2022-12-11 06:01:00 Do ctor Unassigned, [place] [facility] MEDICATION CORRESPONDENCE 2022-11-22 06:01:00 Do ctor Unassigned, [place] [facility] CONSENT/REFUSAL FOR DIAGNOSIS AND TREATMENT 2022-09-25 17:57:27 Doctor Unassigned, [place] [facility] EKG-12 LEAD 2022-09-01 18:23:52 Deidra Meek [facility] CT CHEST PULMONARY ANGIOGRAM 2022-09-01 15:45:19 Deidra Meek [facility] XR CHEST 1 VW 2022-09-01 14:40:31 Deidra Meek [facility] URINE DRUG (IMMUNOASSAY) - COMPREHENSIVE DRUG SCREEN W/O REFLEX 2022-09-01 14:23:00 Deidra Meek [facility] LIPASE 2022-09-01 14:22:00 Deidra Meek [facility] MAGNESIUM 2022-09-01 14:22:00 Deidra Meek [facility] TROPONIN I 2022-09-01 14:22:00 Deidra Meek [facility] THYROID STIMULATING HORMONE 2022-09-01 14:22:00 Deidra Meek [facility] COMP. METABOLIC PANEL (52577) 2022-09-01 14:22:00 Deidra Meek [facility] ETHANOL 2022-09-01 14:22:00 Deidra Meek [facility] CBC WITH DIFF 2022-09-01 14:22:00 Deidra Meek [facility] D-DIMER 2022-09-01 14:22:00 Deidra Meek [facility] URINALYSIS 2022-09-01 14:22:00 Deidra Meek [facility] N-TERMINAL PRO-BNP 2022-09-01 14:22:00 Deidra Meek [facility] COVID-19 (ID NOW RAPID TESTING) 2022-09-01 14:22:00 Deidra Meek [facility] Encounters Start Date/Time End Date/Time Encounter Type Admission Type Attending Clinicians Care Facility Care Department Encounter ID Source 2021-09-25 05:37:23 Emergency [facility] [id number] [facility] 2021-09-24 23:15:39 Emergency [facility] [id number] [facility] 2021-09-24 22:03:21 Emergency [facility] [id number] [facility] 2021-09-24 11:06:58 Emergency [facility] [id number] [facility] 2021-09-23 18:54:33 Emergency [facility] [id number] [facility] 2021-09-23 14:49:00 Emergency [facility] [id number] [facility] 2021-09-21 14:23:37 Emergency [facility] [id number] [facility] 2021-09-21 11:35:45 Emergency [facility] [id number] [facility] 2021-09-21 07:31:33 Emergency [facility] [id number] [facility] 2021-09-21 06:11:19 Emergency [facility] [id number] [facility] 2021-08-10 08:51:00 Inpatient [facility] [id number] [facility] 2021-08-10 08:51:00 Inpatient [facility] [id number] [facility] 2024-09-02 09:00:00 2024-09-02 09:00:00 Outpatient MARYCHUY CRUZ SELENA [facility] [id number] [facility] 2024-09-01 00:00:00 2024-09-01 10:20:56 Telephone Nghia Menendez 1.2.840.1 [id number] 3.104.2.7 .[id number] .8 [id number] [facility] 2024-09-01 00:00:00 2024-09-01 10:09:22 Telephone Nghia Menendez 1.2.840.1 [id number] 3.104.2.7 .[id number] .8 [id number] [facility] 2024-09-01 00:00:00 2024-09-01 00:00:00 Telephone Nghia Menendez 1.2.840.1 [id number] 3.104.2.7 .[id number] .8 [id number] [facility] 2024-08-28 00:00:00 2024-08-30 09:11:29 Refill Nghia Menendez 1.2.840.1 [id number] 3.104.2.7 .[id number] .8 [id number] [facility] 2024-08-27 00:00:00 2024-08-28 12:12:18 Telephone Nghia Menendez 1.2.840.1 [id number] 3.104.2.7 .[id number] .8 [id number] [facility] 2024-08-28 00:00:00 2024-08-28 00:00:00 Telephone Yue Hussein 1.2.840.1 [id number] 3.104.2.7 .[id number] .8 [id number] [facility] 2024-08-27 09:40:05 2024-08-27 23:59:00 Hospital Encounter Puneet Novoa 1.2.840.1 [id number] 3.104.2.7 .[id number] .8 [id number] [facility] 2024-08-27 09:40:04 2024-08-27 23:59:00 Hospital Encounter Puneet Novoa 1.2.840.1 [id number] 3.104.2.7 .[id number] .8 [id number] [facility] 2024-08-27 09:20:00 2024-08-27 10:01:01 Outpatient R PUNEET NOVOA [facility] [id number] [facility] 2024-08-27 09:20:00 2024-08-27 10:01:01 Urgent Care Unknown, Attending NovoaYnescasey 1.2.840.1 [id number] 3.104.2.7 .[id number] .8 [id number] [facility] 2024-08-27 00:00:00 2024-08-27 00:00:00 Travel 1.2.840.1 [id number] 3.104.2.7 .[id number] .8 [id number] [id number] [id number] 084.8 [id number] [facility] 2024-08-25 15:30:00 2024-08-25 16:00:00 Office Visit Chong Bailey Selena 1.2.840.1 [id number] 3.104.2.7 .[id number] .8 [id number] [facility] 2024-08-25 15:30:00 2024-08-25 15:30:00 Outpatient R CHONG BAILEY CRAIG [facility] [id number] [facility] 2024-08-25 00:00:00 2024-08-25 00:00:00 Travel 1.2.840.1 [id number] 3.104.2.7 .[id number] .8 1.2.840.114 [id number] 4.2.7.3.698 [id number] [id number] [facility] 2024-08-21 00:00:00 2024-08-23 10:14:42 RefNghia Moore 1.2.840.1 [id number] 3.104.2.7 .3.325911 .8 [id number] [facility] 2024-08-21 00:00:00 2024-08-23 09:22:51 Telephone Nghia Menendez 1.2.840.1 [id number] 3.104.2.7 .[id number] .8 [id number] [facility] 2024-08-21 19:12:00 2024-08-21 21:53:00 Emergency Radha Flores 1.2.840.1 [id number] 3.104.2.7 .[id number] .8 [id number] [facility] 2024-08-21 18:20:00 2024-08-21 18:44:41 Outpatient R PUNEET NOVOA [facility] [id number] [facility] 2024-08-21 18:20:00 2024-08-21 18:44:41 Outpatient R PUNEET NOVOA [facility] [id number] [facility] 2024-08-21 18:20:00 2024-08-21 18:44:41 Nurse Visit Unknown, Attending Pnueet Novoa Nurse, [facility] 1.2.840.1 [id number] 3.104.2.7 .3.421096 .8 [id number] [facility] 2024-08-21 00:00:00 2024-08-21 18:33:24 Nurse Triage Daniela Germain Shani 1.2.840.1 85971.1.1 3.104.2.7 .3.110502 .8 [id number] [facility] 2024-08-21 00:00:00 2024-08-21 00:00:00 Travel 1.2.840.1 75998.1.1 3.104.2.7 .3.064525 .8 1.2.840.114 350.1.13.10 4.2.7.3.698 084.8 [id number] [facility] 2024-08-16 09:45:00 2024-08-16 09:45:00 Office Visit Nghia Menendez 1.2.840.1 31101.1.1 3.104.2.7 .3.848043 .8 [id number] [facility] 2024-08-16 09:45:00 2024-08-16 09:28:55 Outpatient R NGHIA MENENDEZ [facility] [id number] [facility] 2024-08-16 00:00:00 2024-08-16 00:00:00 Travel 1.2.840.1 33304.1.1 3.104.2.7 .3.111784 .8 1.2.840.114 350.1.13.10 4.2.7.3.698 084.8 [id number] [facility] 2024-08-10 00:00:00 2024-08-10 00:00:00 Patient Secure Mseliz Beckwith Juanagriselda 1.2.840.1 61326.1.1 3.104.2.7 .3.051817 .8 [id number] [facility] 2024-08-09 08:49:29 2024-08-09 23:59:00 Hospital Encounter Tang Mackenzie 1.2.840.1 66800.1.1 3.104.2.7 .3.500746 .8 [id number] [facility] 2024-08-09 10:00:00 2024-08-09 11:44:09 Outpatient R MACKENZIE BECKWITH [facility] [id number] [facility] 2024-08-09 10:00:00 2024-08-09 11:44:09 Office Visit Mackenzie Beckwith 1.2.840.1 07281.1.1 3.104.2.7 .3.328489 .8 [id number] [facility] 2024-08-09 00:00:00 2024-08-09 00:00:00 Travel 1.2.840.1 17620.1.1 3.104.2.7 .3.900221 .8 1.2.840.114 350.1.13.10 4.2.7.3.698 084.8 [id number] [facility] 2024-08-06 00:00:00 2024-08-06 09:25:21 Refill Nghia Menendez 1.2.840.1 60013.1.1 3.104.2.7 .3.022625 .8 [id number] [facility] 2024-06-18 00:00:00 2024-07-24 18:24:15 Patient Secure Msg Doctor Unassigned, [place] 1.2.840.1 88392.1.1 3.104.2.7 .3.961589 .8 [id number] [facility] 2024-07-21 00:00:00 2024-07-21 14:21:15 Letter (Out) Nghia Menendez 1.2.840.1 22116.1.1 3.104.2.7 .3.484586 .8 [id number] [facility] 2024-07-21 00:00:00 2024-07-21 13:43:40 Telephone Nghia Menendez 1.2.840.1 57657.1.1 3.104.2.7 .3.066408 .8 [id number] [facility] 2024-07-15 08:45:00 2024-07-15 13:32:32 Office Visit Nghia Menendez 1.2.840.1 66750.1.1 3.104.2.7 .3.361380 .8 [id number] [facility] 2024-07-15 08:45:00 2024-07-15 08:45:00 Outpatient NGHIA MENDES [facility] [id number] [facility] 2024-07-15 08:30:00 2024-07-15 08:30:00 Outpatient NGHIA MENDES [facility] [id number] [facility] 2024-07-15 00:00:00 2024-07-15 00:00:00 Travel 1.2.840.1 76453.1.1 3.104.2.7 .3.980690 .8 1.2.840.114 350.1.13.10 4.2.7.3.698 084.8 [id number] [facility] 2024-07-07 12:30:00 2024-07-07 12:30:00 Outpatient R ADELITA HOGAN [facility] [id number] [facility] 2024-05-19 00:00:00 2024-06-19 18:18:46 Patient Secure Msg Doctor Unassigned, [place] [facility] 1.2.840.114 350.1.13.10 4.2.7.2.686 [id number] [facility] 2024-06-18 09:00:00 2024-06-18 09:41:49 Outpatient R DAYTON CALDERON [facility] [id number] [facility] 2024-06-18 09:00:00 2024-06-18 09:41:49 Office Visit Dayton Calderon 1.2.840.1 01000.1.1 3.104.2.7 .3.394784 .8 [id number] [facility] 2024-06-18 00:00:00 2024-06-18 00:00:00 Travel 1.2.840.1 67862.1.1 3.104.2.7 .3.772253 .8 1.2.840.114 350.1.13.10 4.2.7.3.698 084.8 [id number] [facility] 2024-06-14 09:30:00 2024-06-14 09:55:27 Outpatient NGHIA MENDES [facility] [id number] [facility] 2024-06-14 09:30:00 2024-06-14 09:55:27 Office Visit Nghia Menendez 1.2.840.1 45421.1.1 3.104.2.7 .3.336782 .8 [id number] [facility] 2024-06-14 00:00:00 2024-06-14 00:00:00 Travel 1.2.840.1 85952.1.1 3.104.2.7 .3.869369 .8 1.2.840.114 350.1.13.10 4.2.7.3.698 084.8 [id number] [facility] 2024-06-11 15:00:00 2024-06-11 15:00:00 Outpatient R [facility] [id number] [facility] 2024-06-09 14:53:47 2024-06-09 23:59:00 Outpatient R JEANMARIE GARCIA [facility] [id number] [facility] 2024-06-09 14:53:47 2024-06-09 23:59:00 Hospital Encounter Jeanmarie Garcia 1.2.840.1 47000.1.1 3.104.2.7 .3.919957 .8 [id number] [facility] 2024-06-09 00:00:00 2024-06-09 00:00:00 Travel 1.2.840.1 26728.1.1 3.104.2.7 .3.689274 .8 1.2.840.114 350.1.13.10 4.2.7.3.698 084.8 [id number] [facility] 2024-06-08 00:00:00 2024-06-08 14:38:05 Telephone Nghia Menendez 1.2.840.1 52330.1.1 3.104.2.7 .3.435158 .8 [id number] [facility] 2024-05-19 00:00:00 2024-05-19 12:56:49 Letter (Out) [facility] 1.2.840.114 350.1.13.10 4.2.7.2.686 [id number] 019 [id number] [facility] 2024-05-13 00:00:00 2024-05-13 15:50:05 Telephone Nghia Menendez [facility] JERALD?[place] 1.2.840.114 350.1.13.10 4.2.7.2.686 [id number] 044 [id number] [facility] 2024-05-12 00:00:00 2024-05-13 07:20:18 [facility] 1.2.840.114 350.1.13.10 4.2.7.2.686 [id number] 044 [id number] [facility] 2024-05-11 10:00:00 2024-05-11 11:12:46 [id number] 2024-05-11 10:00:00 2024-05-11 11:12:46 [facility] 1.2840.114 350.1.13.10 4.2.7.2.686 [id number] [facility] 2024-04-28 12:15:00 2024-04-28 12:46:28 Outpatient R NGHIA MENENDEZ [facility] [id number] [facility] 2024-04-28 12:15:00 2024-04-28 12:30:00 [facility] MED[facility] OFF[facility] BU[facility] 1.2840.114 350.1.13.10 4.2.7.2.686 [id number] 044 [id number] [facility] 2024-04-12 00:00:00 2024-04-14 06:18:02 Telephone Nghia Menendez [facility] JERALD?[place] [facility] MED[facility] OFF[facility] BU[facility] 1.2840.114 350.1.13.10 4.2.7.2.686 [id number] 044 [id number] [facility] 2024-04-12 00:00:00 2024-04-13 06:45:07 [facility] 1.2840.114 350.1.13.10 4.2.7.2.686 [id number] 044 [id number] [facility] 2024-04-12 12:30:00 2024-04-12 12:35:13 [id number] 2024-04-12 12:30:00 2024-04-12 12:35:13 [employer] Teacher Visit Lab, Vipin Garland Shon [facility] 1.840.114 350.1.13.10 4.2.7.2.686 [id number] [facility] 2024-04-12 12:15:00 2024-04-12 12:30:00 [facility] 1.0.114 350.1.13.10 4.2.7.2.686 [id number] 044 [id number] [facility] 2024-04-08 11:40:00 2024-04-08 13:59:00 Emergency X MEZAGURU [facility] ERT [id number] [facility] 2024-04-08 11:40:00 2024-04-08 13:59:00 Emergency MezaGuru linder [facility] 1.0.114 350.1.13.10 4.2.7.2.686 [id number] 084 [id number] [facility] 2024-04-02 00:00:00 2024-04-06 10:07:05 Telephone [facility] 1.2840.114 350.1.13.10 4.2.7.2.686 [id number] 044 [id number] [facility] 2024-03-20 00:00:00 2024-03-20 00:00:00 [facility]ill [facility] MED[facility] OFF[facility] BU[facility] 1.2.840.114 350.1.13.10 4.2.7.2.686 [id number] 044 [id number] [facility] 2024-03-18 10:00:00 2024-03-18 10:15:00 Office Visit Nghia Menendez [facility] JERALD[facility] 1..840.114 350.1.13.10 4.2.7.2.686 [id number] 044 [id number] [facility] 2024-03-18 10:00:00 2024-03-18 10:00:00 Outpatient R NGHIA MENENDEZ [facility] [id number] [facility] 2024-03-16 00:00:00 2024-03-16 00:00:00 [facility] 1..840.114 350.1.13.10 4.2.7.2.686 [id number] 044 [id number] [facility] 2024-03-15 12:30:00 2024-03-15 13:19:21 Outpatient R SHONNGHIA [facility] [id number] [facility] 2024-03-15 12:30:00 2024-03-15 13:19:21 Office Visit Nghia Menendez [facility] JERALD?[facility] MED[facility] OFF[facility] BUILD[facility] 1..840.114 350.1.13.10 4.2.7.2.686 [id number] 044 [id number] [facility] 2024-03-15 08:45:00 2024-03-15 08:45:00 Outpatient R NGHIA MENENDEZ [facility] [id number] [facility] 2024-03-15 00:00:00 2024-03-15 00:00:00 Refill Nghia Menendez [facility] [facility] MED[facility] OFF[facility] BU[facility] 1.2.840.114 350.1.13.10 4.2.7.2.686 [id number] 044 [id number] [facility] 2024-03-15 00:00:00 2024-03-15 00:00:00 Telephone Nghia Menendez [facility] OFF[facility] BUILD[facility] 1.2.840.114 350.1.13.10 4.2.7.2.686 [id number] 044 [id number] [facility] 2024-03-13 00:00:00 2024-03-13 00:00:00 Telephone Nghia Menendez [facility] BU[facility] 1.2.840.114 350.1.13.10 4.2.7.2.686 [id number] 044 [id number] [facility] 2024-03-13 00:00:00 2024-03-13 00:00:00 [facility] 1.2.840.114 350.1.13.10 4.2.7.2.686 [id number] 044 [id number] [facility] 2024-02-11 00:00:00 2024-02-11 00:00:00 Telephone Nghia Menendez [facility] BU[facility] 1.2.840.114 350.1.13.10 4.2.7.2.686 [id number] 044 [id number] [facility] 2024-01-14 09:30:00 2024-01-14 10:15:26 Office [facility] [facility] MED[facility] OFF[facility] BUILD[facility] 1.2.840.114 350.1.13.10 4.2.7.2.686 [id number] 044 [id number] [facility] 2024-01-14 09:30:00 2024-01-14 09:30:00 Outpatient R NGHIA MENENDEZ [facility] [id number] [facility] 2023-12-15 09:30:00 2023-12-15 09:45:00 Office Visit Nghia Menendez [facility] JERALD?[facility] 1..840.114 350.1.13.10 4.2.7.2.686 [id number] 044 [id number] [facility] 2023-12-15 09:30:00 2023-12-15 09:30:00 Outpatient NGHIA MENDES [facility] [id number] [facility] 2023-11-12 09:30:00 2023-11-12 09:45:00 [facility] BU[facility] 1..840.114 350.1.13.10 4.2.7.2.686 [id number] 044 [id number] [facility] 2023-11-12 09:30:00 2023-11-12 09:30:00 Outpatient NGHIA MENDES [facility] [id number] [facility] 2023-10-30 00:00:00 2023-10-30 00:00:00 Telephone [facility]?PR[facility] BU[facility] 1.840.114 350.1.13.10 4.2.7.2.686 [id number] 044 [id number] [facility] 2023-10-30 00:00:00 2023-10-30 00:00:00 Orders Only Doctor Unassigned, [place] [facility] 1.840.114 350.1.13.10 4.2.7.2.686 [id number] [facility] 2023-10-10 00:00:00 2023-10-10 00:00:00 Telephone [facility] MED[facility] OFF[facility] BUILD[facility] 1.2.840.114 350.1.13.10 4.2.7.2.686 [id number] 044 [id number] [facility] 2023-10-09 00:00:00 2023-10-09 00:00:00 Refill Nghia Menendez [facility] OFF[facility] BUILD[facility] 1.2.840.114 350.1.13.10 4.2.7.2.686 [id number] 044 [id number] [facility] 2023-10-09 00:00:00 2023-10-09 00:00:00 Refill Nghia Menendez [facility] JERALD?[facility] MED[facility] OFFICE BUILDING 1.2840.114 350.1.13.10 4.2.7.2.686 [id number] 044 [id number] [facility] 2023-10-06 00:00:00 2023-10-06 00:00:00 [facility] 1.2840.114 350.1.13.10 4.2.7.2.686 [id number] 044 [id number] [facility] 2023-10-06 00:00:00 2023-10-06 00:00:00 Refill Shon [facility] JERALD?[facility] MEDICAL OFFICE BUILDING 1.2840.114 350.1.13.10 4.2.7.2.686 [id number] 044 [id number] [facility] 2023-10-06 00:00:00 2023-10-06 00:00:00 Telephone Nghia Menendez [facility] JERALD?[facility] MED[facility] OFFICE BUILDING 1.2.840.114 350.1.13.10 4.2.7.2.686 [id number] 044 [id number] [facility] 2023-10-02 12:45:00 2023-10-02 13:00:00 Office Visit [facility] 1.840.114 350.1.13.10 4.2.7.2.686 [id number] 044 [id number] [facility] 2023-10-02 12:45:00 2023-10-02 12:45:00 Outpatient NGHIA MENDES [facility] [id number] [facility] 2023-09-29 02:16:00 2023-09-29 07:39:00 Emergency X CHAY WEEKS [facility] ERT [id number] [facility] 2023-09-29 02:16:00 2023-09-29 07:39:00 Emergency Chay Weeks [facility] 1.840.114 350.1.13.10 4.2.7.2.686 [id number] [facility] 2023-09-19 09:00:00 2023-09-19 09:00:00 Outpatient R ALTON REYES SHIWAN [facility] [id number] [facility] 2023-09-17 10:00:00 2023-09-17 10:00:00 Outpatient NGHIA MENDES [facility] [id number] [facility] 2023-09-16 00:00:00 2023-09-16 00:00:00 [facility]phone [facility] 1.840.114 350.1.13.10 4.2.7.2.686 [id number] 044 [id number] [facility] 2023-09-15 00:00:00 2023-09-15 00:00:00 Telephone Nghia Menendez [facility] JERALD?[facility] 1.2.840.114 350.1.13.10 4.2.7.2.686 [id number] 044 [id number] [facility] 2023-09-11 00:00:00 2023-09-11 00:00:00 Refill Nghia Menendez [facility] [facility] MED[facility] OFF[facility] BUILD[facility] 1.2840.114 350.1.13.10 4.2.7.2.686 [id number] 044 [id number] [facility] 2023-09-09 00:00:00 2023-09-09 00:00:00 Telephone Nghia Menendez [facility] [facility] OFF[facility] BUILD[facility] 1.2840.114 350.1.13.10 4.2.7.2.686 [id number] 044 [id number] [facility] 2023-09-08 00:00:00 2023-09-08 00:00:00 Refill Nghia Menendez [facility] [facility] OFF[facility] BUILD[facility] 1.840.114 350.1.13.10 4.2.7.2.686 [id number] 044 [id number] [facility] 2023-09-04 12:00:00 2023-09-04 12:00:00 Outpatient R NGHIA MENENDEZ [facility] [id number] [facility] 2023-09-04 12:00:00 2023-09-04 12:00:00 Office Visit Nghia Menendez [facility] 1.84.114 350.1.13.10 4.2.7.2.686 [id number] 044 [id number] [facility] 2023-09-04 09:30:00 2023-09-04 09:30:00 Outpatient R NGHIA MENENDEZ [facility] [id number] [facility] 2023-09-04 00:00:00 2023-09-04 00:00:00 Telephone Nghia Menendez [facility] [facility] OFF[facility] BUILD[facility] 1.284.114 350.1.13.10 4.2.7.2.686 [id number] 044 [id number] [facility] 2023-08-20 10:00:00 2023-08-20 10:00:00 Outpatient R ELLIE DELUCA [facility] [id number] [facility] 2023-08-15 00:00:00 2023-08-15 00:00:00 [facility] 1.2.840.114 350.1.13.10 4.2.7.2.686 [id number] 044 [id number] [facility] 2023-08-11 11:00:00 2023-08-11 11:13:55 [facility] [id number] 2023-08-11 11:00:00 2023-08-11 11:13:55 [facility] 1.2.840.114 350.1.13.10 4.2.7.2.686 [id number] 059 [id number] [facility] 2023-08-08 08:00:00 2023-08-08 08:00:00 Outpatient R [facility] [id number] [facility] 2023-08-06 10:00:00 2023-08-06 10:27:52 Outpatient R NGHIA MENENDEZ [facility] [id number] [facility] 2023-08-06 10:00:00 2023-08-06 10:15:00 Office [facility] 1.2.840.114 350.1.13.10 4.2.7.2.686 [id number] [facility] 2023-07-29 08:45:00 2023-07-29 08:45:00 Outpatient R YARI HORNE [facility] [id number] [facility] 2023-07-09 15:00:00 2023-07-09 15:25:34 Outpatient R NGHIA MENENDEZ [facility] [id number] [facility] 2023-07-09 15:00:00 2023-07-09 15:25:34 Office Visit Nghia Menendez [facility] 1.2.840.114 350.1.13.10 4.2.7.2.686 [id number] 044 [id number] [facility] 2023-06-25 00:00:00 2023-06-25 00:00:00 Patient Secure Msg Doctor Unassigned, [place] [facility] 1.840.114 350.1.13.10 4.2.7.2.686 [id number] [facility] 2023-06-24 00:00:00 2023-06-24 00:00:00 Refill [facility] 1..840.114 350.1.13.10 4.2.7.2.686 [id number] [facility] 2023-06-24 00:00:00 2023-06-24 00:00:00 Orders Only Doctor Unassigned, [place] [facility] 1.2840.114 350.1.13.10 4.2.7.2.686 [id number] [facility] 2023-06-20 10:00:00 2023-06-20 10:04:10 Outpatient R ALTON REYES SHIWAN [facility] [id number] [facility] 2023-06-20 10:00:00 2023-06-20 10:04:10 Office Visit Alton Reyes [facility] 1.2.840.114 350.1.13.10 4.2.7.2.686 [id number] [facility] 2023-06-18 00:00:00 2023-06-18 00:00:00 Patient Secure Msg Doctor Unassigned, [place] [facility] 1.2840.114 350.1.13.10 4.2.7.2.686 [id number] [facility] 2023-06-16 00:00:00 2023-06-16 00:00:00 Telephone Nghia Menendez [facility] 1.2840.114 350.1.13.10 4.2.7.2.686 [id number] [facility] 2023-06-16 00:00:00 2023-06-16 00:00:00 Patient Secure Msg Doctor Unassigned, [place] [facility] 1.2840.114 350.1.13.10 4.2.7.2.686 [id number] [facility] 2023-06-10 00:00:00 2023-06-10 00:00:00 Telephone Nghia Menendez [facility] 1.840.114 350.1.13.10 4.2.7.2.686 [id number] [facility] 2023-06-10 00:00:00 2023-06-10 00:00:00 Telephone Nghia Menendez [facility] MED[facility] OFF[facility] BU[facility] 1.2840.114 350.1.13.10 4.2.7.2.686 [id number] [facility] 2023-06-10 00:00:00 2023-06-10 00:00:00 Patient Secure Msg [facility] Unassigned, [place] [facility] OFF[facility] BU[facility] 1.2840.114 350.1.13.10 4.2.7.2.686 [id number] [facility] 2023-06-09 12:30:00 2023-06-09 13:25:02 Outpatient R GWEN MENENDEZONY [facility] [id number] [facility] 2023-06-09 12:30:00 2023-06-09 13:25:02 [facility] 1.840.114 350.1.13.10 4.2.7.2.686 [id number] [facility] 2023-05-30 00:00:00 2023-05-30 00:00:00 Orders Only Doctor Unassigned, [place] [facility] 1.84.114 350.1.13.10 4.2.7.2.686 [id number] [facility] 2023-05-28 00:00:00 2023-05-28 00:00:00 [facility] 1.840.114 350.1.13.10 4.2.7.2.686 [id number] [facility] 2023-05-23 00:00:00 2023-05-23 00:00:00 Outpatient ELLIE BUENROSTRO [facility] [id number] [facility] 2023-05-07 00:00:00 2023-05-07 00:00:00 Telephone Ellie Deluca [facility] BU[facility] 1.840.114 350.1.13.10 4.2.7.2.686 [id number] [facility] 2023-04-23 00:00:00 2023-04-23 00:00:00 Outpatient MAMIE MOREJON [facility] [id number] [facility] 2023-04-19 00:00:00 2023-04-19 00:00:00 [facility] 1.840.114 350.1.13.10 4.2.7.2.686 [id number] [facility] 2023-04-17 11:30:00 2023-04-17 11:45:00 [employer] Visit 2, [facility] AdEllie call [facility] BU[facility] 1.2.840.114 350.1.13.10 4.2.7.2.686 [id number] [facility] 2023-04-17 10:00:00 2023-04-17 11:06:42 Outpatient R ADAMINTA [facility] [id number] [facility] 2023-04-17 10:00:00 2023-04-17 11:06:42 Office Visit Ellie Del[facility] 1.2840.114 350.1.13.10 4.2.7.2.686 [id number] [facility] 2023-04-16 00:00:00 2023-04-16 00:00:00 Patient Outreach Quentin Heather Shani [facility] MED[facility] OFFICE BUILD[facility] 1.2840.114 350.1.13.10 4.2.7.2.686 [id number] [id number] [facility] 2023-04-16 00:00:00 2023-04-16 00:00:00 Telephone Nghia Menendez [facility] MEDICAL OFFICE BUILDING 1.2840.114 350.1.13.10 4.2.7.2.686 [id number] [facility] 2023-04-15 14:20:00 2023-04-15 14:40:00 Urgent Care Prosper Sims Unknown, Attending [facility] MEDICAL OFFICE BUILDING 1.2840.114 350.1.13.10 4.2.7.2.686 [id number] [facility] 2023-04-15 14:20:00 2023-04-15 14:20:00 Outpatient R VICNORMPROSPER Maloney [facility] [id number] [facility] 2023-04-13 17:56:00 2023-04-13 19:44:00 Emergency X DERECK JOHNSON TIMOTHY [facility] ERT [id number] [facility] 2023-04-13 17:56:00 2023-04-13 19:44:00 Emergency Dereck Johnson [facility] 1.840.114 350.1.13.10 4.2.7.2.686 [id number] [facility] 2023-04-09 21:07:00 2023-04-09 21:49:00 Emergency X MELLY [facility] ERT [id number] [facility] 2023-04-09 21:07:00 2023-04-09 21:49:00 Emergency Sonia Pickard [facility] 1.840.114 350.1.13.10 4.2.7.2.686 [id number] [facility] 2023-04-09 00:00:00 2023-04-09 00:00:00 Telephone Nghia Menendez [facility] 1.840.114 350.1.13.10 4.2.7.2.686 [id number] [facility] 2023-04-08 16:05:00 2023-04-08 23:59:00 Outpatient R MAMIE BARBOZA [facility] [id number] [facility] 2023-04-08 15:45:00 2023-04-08 16:00:00 Office Visit Mamie Barboza [facility] 1.840.114 350.1.13.10 4.2.7.2.686 [id number] [facility] 2023-03-28 00:00:00 2023-03-28 00:00:00 Telephone Nghia Menendez [facility] BU[facility] 1.84.114 350.1.13.10 4.2.7.2.686 [id number] [facility] 2023-03-28 00:00:00 2023-03-28 00:00:00 Telephone Nghia Menendez [facility] 1.84.114 350.1.13.10 4.2.7.2.686 [id number] [id number] [facility] 2023-03-27 09:30:00 2023-03-27 09:30:00 Outpatient R MENENDEZ NGHIA [facility] [id number] [facility] 2023-03-26 15:00:00 2023-03-26 15:15:00 Office Visit Nghia Menendez [facility] 1.840.114 350.1.13.10 4.2.7.2.686 [id number] [facility] 2023-03-26 15:00:00 2023-03-26 15:00:00 Outpatient R MENENDEZ NGHIA [facility] [id number] [facility] 2023-03-26 08:30:00 2023-03-26 08:30:00 Outpatient Amador MENENDEZ NGHIA [facility] [id number] [facility] 2023-03-20 07:30:00 2023-03-20 07:30:00 Outpatient R SHON NGHIA [facility] [id number] [facility] 2023-03-17 00:00:00 2023-03-17 00:00:00 Telephone [facility]D?[facility] MEDICAL OFFICE BUILDING 1.840.114 350.1.13.10 4.2.7.2.686 [id number] [id number] [facility] 2023-03-05 00:00:00 2023-03-05 00:00:00 [facility] MED[facility] OFFICE BUILDING 1.2840.114 350.1.13.10 4.2.7.2.686 [id number] 044 [id number] [facility] 2023-03-05 00:00:00 2023-03-05 00:00:00 Telephone Ngh[facility] MED[facility] OFFICE BUILDING 1.840.114 350.1.13.10 4.2.7.2.686 [id number] [id number] [facility] 2023-03-03 00:00:00 2023-03-03 00:00:00 Refill [facility]D?[facility] MEDICAL OFFICE BUILDING 1.840.114 350.1.13.10 4.2.7.2.686 [id number] [facility] 2023-02-28 00:00:00 2023-02-28 00:00:00 Refill [facility]D?[facility] MEDICAL OFFICE BUILDING 1.2840.114 350.1.13.10 4.2.7.2.686 [id number] 044 [id number] [facility] 2023-02-27 10:30:00 2023-02-27 12:21:16 Outpatient R CHONG BAILEY [facility] [id number] [facility] 2023-02-27 10:30:00 2023-02-27 12:21:16 Office Visit [facility]ie [facility]boza [facility] MED[facility] BUILD[facility] 1.2840.114 350.1.13.10 4.2.7.2.686 [id number] [facility] 2023-02-24 12:15:00 2023-02-24 12:15:00 Outpatient R NGHIA MENENDEZ [facility] [id number] [facility] 2023-02-24 11:30:00 2023-02-24 12:04:36 Outpatient R NGHIA MENENDEZ [facility] [id number] [facility] 2023-02-24 11:30:00 2023-02-24 12:04:36 Office [facility] MEDICAL OFFICE BUILDING 1.2.840.114 350.1.13.10 4.2.7.2.686 [id number] [id number] [facility] 2023-02-19 10:33:00 2023-02-19 14:10:00 Emergency X SANDRA ANDRADE [facility] ERT [id number] [facility] 2023-02-19 10:33:00 2023-02-19 14:10:00 Emergency Sandra Andrade [facility] 1.2.840.114 350.1.13.10 4.2.7.2.686 [id number] [facility] 2023-02-07 08:15:00 2023-02-07 08:30:00 Secondary Special Education Teacher Visit Lab, Ang - Dada Shon Pending sale to [facility] MEDICAL OFFICE BUILDING 1.2.840.114 350.1.13.10 4.2.7.2.686 [id number] [facility] 2023-02-07 08:15:00 2023-02-07 08:15:00 Outpatient NGHIA MENDES [facility] [id number] [facility] 2023-02-04 09:45:00 2023-02-04 09:45:00 Outpatient NGHIA MENDES [facility] [id number] [facility] 2023-02-03 14:00:00 2023-02-03 14:15:00 Office Visit Nghia Menendez [facility] BUILD[facility] 1.2840.114 350.1.13.10 4.2.7.2.686 [id number] [facility] 2023-02-03 14:00:00 2023-02-03 14:00:00 Outpatient R NGHIA MENENDEZ [facility] [id number] [facility] 2023-02-03 00:00:00 2023-02-03 00:00:00 Orders Only Doctor Unassigned, [facility] 1.2840.114 350.1.13.10 4.2.7.2.686 [id number] [facility] 2023-01-28 00:00:00 2023-01-28 00:00:00 Refill [facility]D?[facility] MEDICAL OFFICE BUILDING 1.2840.114 350.1.13.10 4.2.7.2.686 [id number] [id number] [facility] 2023-01-02 00:00:00 2023-01-02 00:00:00 Telephone Nghia Menendez [facility] MEDICAL OFFICE BUILDING 1.2840.114 350.1.13.10 4.2.7.2.686 [id number] [id number] [facility] 2022-12-31 00:00:00 2022-12-31 00:00:00 [facility] MEDICAL OFFICE BUILDING 1.2840.114 350.1.13.10 4.2.7.2.686 [id number] [facility] 2022-12-30 12:30:00 2022-12-30 12:45:00 Office Visit Nghia Menendez [facility] MEDICAL OFFICE BUILDING 1.2840.114 350.1.13.10 4.2.7.2.686 [id number] [facility] 2022-12-30 12:30:00 2022-12-30 12:30:00 Outpatient R NGHIA MENENDEZ [facility] [id number] [facility] 2022-12-18 00:00:00 2022-12-18 00:00:00 Telephone Menendez, Nghia [facility] MEDICAL OFFICE BUILDING 1.114 350.1.13.10 4.2.7.2.686 [id number] [id number] [facility] 2022-12-11 00:00:00 2022-12-11 00:00:00 Orders Only Doctor Unassigned, [facility] 1.114 350.1.13.10 4.2.7.2.686 [id number] [facility] 2022-12-10 15:00:00 2022-12-10 15:00:00 Outpatient MEAGHAN MOSELEY [facility] [id number] [facility] 2022-11-28 13:00:00 2022-11-28 13:00:00 Outpatient R NGHIA MENENDEZ [facility] [id number] [facility] 2022-11-27 13:45:00 2022-11-27 14:14:10 Outpatient R NGHIA MENENDEZ [facility] [id number] [facility] 2022-11-27 13:45:00 2022-11-27 14:00:00 Office Visit Nghia Menendez [facility] MEDICAL OFFICE BUILDING 1.114 350.1.13.10 4.2.7.2.686 [id number] 044 [id number] [facility] 2022-11-25 00:00:00 2022-11-25 00:00:00 [facility] MEDICAL OFFICE BUILDING 1.114 350.1.13.10 4.2.7.2.686 [id number] [facility] 2022-11-22 00:00:00 2022-11-22 00:00:00 Orders Only Doctor Unassigned, [facility] 1.2840.114 350.1.13.10 4.2.7.2.686 [id number] [facility] 2022-11-12 00:00:00 2022-11-12 00:00:00 [facility] [id number] 2022-10-30 10:20:00 2022-10-30 11:17:22 Outpatient R [facility] [id number] [facility] 2022-10-30 10:20:00 2022-10-30 11:17:22 [facility] 1.84.114 350.1.13.10 4.2.7.2.686 [id number] [facility] 2022-10-28 13:15:00 2022-10-28 13:32:14 Outpatient R NGHIA MENENDEZ [facility] [id number] [facility] 2022-10-28 13:15:00 2022-10-28 13:30:00 Office Visit Nghia Menendez [facility] MEDICAL OFFICE BUILDING 1.840.114 350.1.13.10 4.2.7.2.686 [id number] 044 [id number] [facility] 2022-10-01 00:00:00 2022-10-01 00:00:00 Telephone Heather Saavedra [facility] MEDICAL OFFICE BUILDING 1..840.114 350.1.13.10 4.2.7.2.686 [id number] 044 [id number] [facility] 2022-09-26 00:00:00 2022-09-26 00:00:00 Patient Outreach Heather Saavedra [facility] OFF[facility] BUILD[facility] 1..114 350.1.13.10 4.2.7.2.686 [id number] [facility] 2022-09-25 13:00:00 2022-09-25 13:15:00 Office Visit Shon Nghia [facility] MEDICAL OFFICE BUILDING 1..114 350.1.13.10 4.2.7.2.686 [id number] [facility] 2022-09-25 13:00:00 2022-09-25 13:00:00 Outpatient R SHON NGHIA [facility] [id number] [facility] 2022-09-25 00:00:00 2022-09-25 00:00:00 Orders Only Doctor Unassigned, [facility] 1..114 350.1.13.10 4.2.7.2.686 [id number] [facility] 2022-09-02 14:00:00 2022-09-02 14:26:56 Outpatient R NGHIA MENENDEZ [facility] [id number] [facility] 2022-09-02 14:00:00 2022-09-02 14:15:00 Office Visit Shon Nghia [facility] MED[facility] OFF[facility] BUILDING 1.2.114 350.1.13.10 4.2.7.2.686 [id number] 044 [id number] [facility] 2022-09-02 00:00:00 2022-09-02 00:00:00 Telephone Nghia Menendez [facility] 1.84.114 350.1.13.10 4.2.7.2.686 [id number] 044 [id number] [facility] 2022-09-01 08:47:00 2022-09-01 14:18:00 Emergency X DEIDRA MEEK [facility] ERT [id number] [facility] 2022-09-01 08:47:00 2022-09-01 14:18:00 Emergency Deidra Meek G [facility] 1.2840.114 350.1.13.10 4.2.7.2.686 [id number] [facility] 2022-08-21 15:00:00 2022-08-21 15:00:00 Outpatient R RUTHIE HANEY [facility] [id number] [facility] 2022-08-06 00:00:00 2022-08-06 00:00:00 [facility] MEDICAL OFFICE BUILDING 1.840.114 350.1.13.10 4.2.7.2.686 [id number] [id number] [facility] 2022-07-03 15:15:00 2022-07-03 15:52:50 Outpatient R NGHIA MENENDEZ [facility] [id number] [facility] 2022-07-03 15:15:00 2022-07-03 15:30:00 Office Visit Nghia Menendez [facility] MEDICAL OFFICE BUILDING 1.840.114 350.1.13.10 4.2.7.2.686 [id number] [facility] 2022-07-03 15:15:00 2022-07-03 15:15:00 Outpatient R NGHIA MENENDEZ [facility] [id number] [facility] 2022-07-03 00:00:00 2022-07-03 00:00:00 Patient Secure Msg Doctor Unassigned, [facility] 1.840.114 350.1.13.10 4.2.7.2.686 [id number] [facility] 2022-06-28 00:00:00 2022-06-28 00:00:00 Patient Secure Msg Doctor Unassigned, [facility] 1.284.114 350.1.13.10 4.2.7.2.686 [id number] [facility] 2022-06-26 08:47:07 2022-06-26 23:59:00 Hospital Encounter [facility] 1..114 350.1.13.10 4.2.7.2.686 [id number] [facility] 2022-06-26 08:46:05 2022-06-26 08:46:00 [facility] [id number] [facility] 2022-06-26 08:30:00 2022-06-26 08:46:00 Hospital Encounter [facility] 1..114 350.1.13.10 4.2.7.2.686 [id number] [facility] 2022-06-18 00:00:00 2022-06-18 00:00:00 Case Management [facility] 1..114 350.1.13.10 4.2.7.2.686 [id number] [facility] 2022-06-11 00:00:00 2022-06-11 00:00:00 Telephone Ruthie Haney [facility] MED[facility] OFF[facility] BUILDING 1..840.114 350.1.13.10 4.2.7.2.686 [id number] 044 [id number] [facility] 2022-06-10 11:03:40 2022-06-10 23:59:00 Outpatient ISABELLE MOFFETT [facility] [id number] [facility] 2022-06-10 10:00:00 2022-06-10 23:59:00 Hospital Encounter Isabelle Preciado, [facility] 1.0.114 350.1.13.10 4.2.7.2.686 [id number] [facility] 2022-06-06 00:00:00 2022-06-06 00:00:00 Case Management Abdoul Shaferian Mat [facility] 1.0.114 350.1.13.10 4.2.7.2.686 [id number] [facility] 2022-06-05 09:46:00 2022-06-05 13:39:00 Emergency X GURU MEZA [facility] ERT [id number] [facility] 2022-06-05 09:46:00 2022-06-05 13:39:00 Emergency Guru Meza [facility] 1.0.114 350.1.13.10 4.2.7.2.686 [id number] [facility] 2022-04-05 00:00:00 2022-04-05 00:00:00 [facility] MEDICAL OFFICE BUILDING 1.840.114 350.1.13.10 4.2.7.2.686 [id number] 044 [id number] [facility] 2022-04-02 00:00:00 2022-04-02 00:00:00 Refill Ruthie Haney [facility] MEDICAL OFFICE BUILDING 1.840.114 350.1.13.10 4.2.7.2.686 [id number] 044 [id number] [facility] 2022-03-28 00:00:00 2022-03-28 00:00:00 Orders Only Doctor Unassigned, [facility] 1.840.114 350.1.13.10 4.2.7.2.686 [id number] [facility] 2022-03-27 00:00:00 2022-03-27 00:00:00 Telephone Ruthie Haney [facility] MEDICAL OFFICE BUILDING 1.114 350.1.13.10 4.2.7.2.686 [id number] [facility] 2022-03-14 11:15:00 2022-03-14 11:30:00 [facility] BUILDING 1.114 350.1.13.10 4.2.7.2.686 [id number] [facility] 2022-03-14 11:15:00 2022-03-14 11:15:00 Outpatient R TAMRA [facility] [id number] [facility] 2022-03-14 11:15:00 2022-03-14 11:15:00 Outpatient MAMIE MOREJON [facility] [id number] [facility] 2022-03-13 09:00:00 2022-03-13 09:00:00 Outpatient R ROSY FLOWERS [facility] [id number] [facility] 2022-03-13 09:00:00 2022-03-13 09:00:00 Outpatient ROSY CARLSON [facility] [id number] [facility] 2022-03-13 00:00:00 2022-03-13 00:00:00 Telephone [facility]ong [facility] OFF[facility] BUILDING 1.114 350.1.13.10 4.2.7.2.686 [id number] [facility] 2022-03-11 00:00:00 2022-03-11 00:00:00 Orders Only Doctor Unassigned, [facility] 1.114 350.1.13.10 4.2.7.2.686 [id number] [facility] 2022-03-07 00:00:00 2022-03-07 00:00:00 Telephone Chong Bailey [facility] MEDICAL OFFICE BUILDING 1.2.840.114 350.1.13.10 4.2.7.2.686 [id number] [facility] 2022-03-06 00:00:00 2022-03-06 00:00:00 Telephone BarbozaMamie [facility] MEDICAL OFFICE BUILDING 1.2840.114 350.1.13.10 4.2.7.2.686 [id number] [facility] 2022-03-06 00:00:00 2022-03-06 00:00:00 Telephone Chong Bailey [facility] MEDICAL OFFICE BUILDING 1.2840.114 350.1.13.10 4.2.7.2.686 [id number] [facility] 2022-03-01 00:00:00 2022-03-01 00:00:00 Telephone Ruthie Haney [facility] MEDICAL OFFICE BUILDING 1.2.840.114 350.1.13.10 4.2.7.2.686 [id number] [facility] 2022-02-28 00:00:00 2022-02-28 00:00:00 Telephone Chong Bailey [facility] MEDICAL OFFICE BUILDING 1.2840.114 350.1.13.10 4.2.7.2.686 [id number] [facility] 2022-02-27 00:00:00 2022-02-27 00:00:00 Outpatient R CHONG BAILEY [facility] [id number] [facility] 2022-02-27 00:00:00 2022-02-27 00:00:00 Orders Only Doctor Unassigned, [facility] 1.0.114 350.1.13.10 4.2.7.2.686 [id number] [facility] 2022-02-26 00:00:00 2022-02-26 00:00:00 Telephone Chong Bailey [facility] MEDICAL OFFICE BUILDING 1..114 350.1.13.10 4.2.7.2.686 [id number] [facility] 2022-02-20 10:27:42 2022-02-20 23:59:00 Outpatient R CHONG BAILEY [facility] [id number] [facility] 2022-02-20 10:27:42 2022-02-20 23:59:00 Hospital Encounter Chong Bailey [facility] 1..114 350.1.13.10 4.2.7.2.686 [id number] [facility] 2022-02-20 11:15:00 2022-02-20 11:30:00 Secondary Special Education Teacher Visit Casimiro, [facility] Chong Bailey [facility] BUILDING 1..114 350.1.13.10 4.2.7.2.686 [id number] [facility] 2022-02-20 00:00:00 2022-02-20 00:00:00 Telephone Chong Bailey [facility] 1.0.114 350.1.13.10 4.2.7.2.686 [id number] [facility] 2022-02-20 00:00:00 2022-02-20 00:00:00 Orders Only Doctor Unassigned, [facility] 1.0.114 350.1.13.10 4.2.7.2.686 [id number] [facility] 2022-02-18 14:30:00 2022-02-18 14:26:49 Outpatient R CHONG BAILEY [facility] [id number] [facility] 2022-02-18 00:00:00 2022-02-18 00:00:00 Telephone Chong Bailey [facility] 1.2840.114 350.1.13.10 4.2.7.2.686 [id number] [facility] 2022-02-11 00:00:00 2022-02-11 00:00:00 Telephone Ruthie Haney [facility] 1.20.114 350.1.13.10 4.2.7.2.686 [id number] [facility] 2022-02-01 00:00:00 2022-02-01 00:00:00 [facility] 1.2.114 350.1.13.10 4.2.7.2.686 [id number] [facility] 2022-01-31 09:28:33 2022-01-31 23:59:00 Outpatient R CHONG BAILEY [facility] [id number] [facility] 2022-01-31 09:28:33 2022-01-31 23:59:00 Hospital Encounter Chong Bailey [facility] 1.2.114 350.1.13.10 4.2.7.2.686 [id number] [facility] 2022-01-30 00:00:00 2022-01-30 00:00:00 Orders Only Doctor Unassigned, [facility] 1.20.114 350.1.13.10 4.2.7.2.686 [id number] [facility] 2022-01-27 21:17:00 2022-01-27 23:49:00 Emergency X SANDRA ANDRADE [facility] ERT [id number] [facility] 2022-01-27 21:17:00 2022-01-27 23:49:00 Emergency Sandra Andrade F [facility] 1.2840.114 350.1.13.10 4.2.7.2.686 [id number] [facility] 2022-01-24 00:00:00 2022-01-24 00:00:00 Telephone Chong Bailey [facility] 1..114 350.1.13.10 4.2.7.2.686 [id number] [facility] 2022-01-11 00:00:00 2022-01-11 00:00:00 Telephone Chong Bailey [facility] 1..114 350.1.13.10 4.2.7.2.686 [id number] [facility] 2022-01-10 12:24:00 2022-01-10 13:44:00 Emergency X REKHA CHAU [facility] ERT [id number] [facility] 2022-01-10 12:24:00 2022-01-10 13:44:00 Emergency Rekha Chau [facility] 1..114 350.1.13.10 4.2.7.2.686 [id number] [facility] 2022-01-10 00:00:00 2022-01-10 00:00:00 Patient Secure Msg Doctor Unassigned, [facility] 1..114 350.1.13.10 4.2.7.2.686 [id number] [facility] 2022-01-07 14:55:00 2022-01-07 23:59:00 Hospital Encounter Chong Bialey [facility] 1.2.840.114 350.1.13.10 4.2.7.2.686 [id number] [facility] 2022-01-07 17:40:00 2022-01-07 18:00:00 Urgent Care Provider, [facility] Neli Baron [facility] 1..840.114 350.1.13.10 4.2.7.2.686 [id number] [facility] 2022-01-07 16:00:00 2022-01-07 16:00:00 [facility] 1..840.114 350.1.13.10 4.2.7.2.686 [id number] [facility] 2022-01-07 16:00:00 2022-01-07 15:12:51 Outpatient R BAILEYCHONG DELEON [facility] [id number] [facility] 2022-01-07 16:00:00 2022-01-07 15:12:51 Outpatient R BAILEYCHONG DELEON [facility] [id number] [facility] 2022-01-07 00:00:00 2022-01-07 00:00:00 Telephone Ruthie Haney [facility] MEDICAL OFFICE BUILDING 1..840.114 350.1.13.10 4.2.7.2.686 [id number] [facility] 2022-01-03 00:00:00 2022-01-03 00:00:00 Outpatient ROSY CARLSON [facility] [id number] [facility] 2021-11-29 14:00:00 2021-11-29 14:00:00 Outpatient R ROSY FLOWERS [facility] [id number] [facility] 2021-11-20 00:00:00 2021-11-20 00:00:00 Telephone [place] Ruthie A [facility] MEDICAL OFFICE BUILDING 1.2.840.114 350.1.13.10 4.2.7.2.686 [id number] [facility] 2021-11-12 00:00:00 2021-11-12 00:00:00 [facility] MED[facility] OFFICE BUILD[facility] 1.2.840.114 350.1.13.10 4.2.7.2.686 [id number] [facility] 2021-11-09 09:00:00 2021-11-09 09:00:00 Outpatient CHONG BURTON [facility] [id number] [facility] 2021-11-06 00:00:00 2021-11-06 00:00:00 Refill Mamie Barboza [facility] SURGICAL SPECIALTI [facility] 1.2.840.114 350.1.13.10 4.2.7.2.686 [id number] [facility] 2021-11-06 00:00:00 2021-11-06 00:00:00 Refill Doctor Unassigned, [place] [facility] SURGICAL SPECIALTI KEYLA IVANHOE 1.2.840.114 350.1.13.10 4.2.7.2.686 [id number] [facility] 2021-11-05 15:54:00 2021-11-05 20:33:00 Emergency X DEIDRA MEEK [facility] ERT [id number] [facility] 2021-11-05 15:54:00 2021-11-05 20:33:00 Emergency Deidra Meek [facility] 1.2.840.114 350.1.13.10 4.2.7.2.686 [id number] [facility] 2021-11-01 00:00:00 2021-11-01 00:00:00 [facility] 1.2840.114 350.1.13.10 4.2.7.2.686 [id number] [facility] 2021-10-31 14:00:00 2021-10-31 14:00:00 Outpatient R ROSY FLOWERS [facility] [id number] [facility] 2021-10-22 00:00:00 2021-10-22 00:00:00 Refill Rosy Flowers [facility] BUILDING 1.840.114 350.1.13.10 4.2.7.2.686 [id number] [facility] 2021-10-17 00:00:00 2021-10-17 00:00:00 Telephone Rosy Flowers [facility] BUILDING 1.284.114 350.1.13.10 4.2.7.2.686 [id number] [facility] 2021-10-11 00:00:00 2021-10-11 00:00:00 [facility] MED[facility] OFF[facility] BUILD[facility] 1.284.114 350.1.13.10 4.2.7.2.686 [id number] [facility] 2021-10-04 10:45:44 2021-10-04 23:59:00 Hospital Encounter Rosy FlowersHAllison [facility] BUILDING 1.2.840.114 350.1.13.10 4.2.7.2.686 [id number] [facility] 2021-10-04 10:30:00 2021-10-04 10:58:26 Outpatient R VALDO FLOWERSHUA [facility] [id number] [facility] 2021-10-04 10:30:00 2021-10-04 10:58:26 Outpatient R FLOWERSVALDO WOOTENHUA [facility] [id number] [facility] 2021-10-04 10:11:17 2021-10-04 10:58:26 Office Visit Rosy Flowers [facility] BUILDING 1..840.114 350.1.13.10 4.2.7.2.686 [id number] [facility] 2021-10-03 14:00:00 2021-10-03 14:23:38 Outpatient R MAMIE BARBOZA [facility] [id number] [facility] 2021-10-03 14:00:00 2021-10-03 14:23:38 Outpatient R MAMIE BARBOZA [facility] [id number] [facility] 2021-10-03 14:00:00 2021-10-03 14:23:38 [facility] [id number] [facility] 2021-10-03 13:57:05 2021-10-03 14:23:38 [facility] MEDICAL OFFICE BUILDING 1..840.114 350.1.13.10 4.2.7.2.686 [id number] [facility] 2021-10-01 00:00:00 2021-10-01 00:00:00 Telephone Tamra [facility] JERALD?[facility] MEDICAL OFFICE BUILDING 1.2.840.114 350.1.13.10 4.2.7.2.686 [id number] [facility] 2021-09-27 13:30:00 2021-09-27 13:30:00 Outpatient R ROSY FLOWERS [facility] [id number] [facility] 2021-09-27 13:30:00 2021-09-27 13:30:00 Outpatient R ROSY FLOWERS [facility] [id number] [facility] 2021-09-25 10:12:06 2021-09-25 23:59:00 Outpatient R MAMIE BARBOZA [facility] [id number] [facility] 2021-09-25 10:12:06 2021-09-25 23:59:00 Hospital Encounter Mamie Barboza [facility] 1.840.114 350.1.13.10 4.2.7.2.686 [id number] [facility] 2021-09-25 10:12:06 2021-09-25 23:59:00 Outpatient R MAMIE BARBOZA [facility] [id number] [facility] 2021-09-25 00:00:00 2021-09-25 00:00:00 Orders Only Doctor Unassigned, [place] [facility] 1.840.114 350.1.13.10 4.2.7.2.686 [id number] [facility] 2021-09-25 00:00:00 2021-09-25 00:00:00 Telephone Ruthie Haney [facility] JERALD?[facility] MEDICAL OFFICE BUILDING 1.2840.114 350.1.13.10 4.2.7.2.686 [id number] [facility] 2021-09-19 00:00:00 2021-09-19 00:00:00 Telephone Mamie Barboza [facility] Jerald?[facility] Medical Office Building 1.840.114 350.1.13.10 4.2.7.2.686 [id number] [facility] 2021-09-18 00:00:00 2021-09-18 00:00:00 Patient Secure Msg Doctor Unassigned, [place] [facility] 1.840.114 350.1.13.10 4.2.7.2.686 [id number] [facility] 2021-09-15 00:00:00 2021-09-15 00:00:00 Telephone Ruthie Haney [facility] Jerald?[facility] Medical Office Building 1..840.114 350.1.13.10 4.2.7.2.686 [id number] [facility] 2021-09-13 13:21:54 2021-09-13 13:51:54 Office Visit Mamie Barboza [facility] Medical Office Building 1..840.114 350.1.13.10 4.2.7.2.686 [id number] [facility] 2021-09-13 13:15:00 2021-09-13 13:49:15 Outpatient R TAMRA [facility] [id number] [facility] 2021-09-13 13:15:00 2021-09-13 13:49:15 Outpatient Amador BARBOZA [facility] [id number] [facility] 2021-09-13 13:15:00 2021-09-13 13:49:15 Outpatient MAMIE MOREJON [facility] [id number] [facility] 2021-09-13 00:00:00 2021-09-13 00:00:00 [facility]ill [facility] Medical Office Building 1..840.114 350.1.13.10 4.2.7.2.686 [id number] [facility] 2021-09-11 09:59:00 2021-09-11 11:16:00 Emergency Guru Meza [facility] 1.2.840.114 350.1.13.10 4.2.7.2.686 [id number] [facility] 2021-09-11 09:59:00 2021-09-11 11:16:00 Emergency X GURU MEZA [facility] ERT [id number] [facility] 2021-09-11 09:59:00 2021-09-11 11:16:00 Emergency X GURU MEZA [facility] ERT [id number] [facility] 2021-09-10 00:00:00 2021-09-10 00:00:00 Patient Secure Msg Doctor Unassigned, [place] [facility] 1.2840.114 350.1.13.10 4.2.7.2.686 [id number] [facility] 2021-09-05 11:55:00 2021-09-05 14:02:00 Emergency [facility] 1.2.840.114 350.1.13.10 4.2.7.2.686 [id number] [facility] 2021-09-05 09:17:56 2021-09-05 09:32:56 [employer] Teacher Visit Lab, Ruthie May [facility] Medical Office Building 1..840.114 350.1.13.10 4.2.7.2.686 [id number] [facility] 2021-09-05 08:00:00 2021-09-05 09:16:46 Outpatient R RUTHIE HANEY [facility] [id number] [facility] 2021-09-05 08:00:00 2021-09-05 09:16:46 Outpatient RUTHIE THACKER [facility] [id number] [facility] 2021-09-05 08:00:00 2021-09-05 09:16:46 Outpatient RUTHIE THACKER [facility] ERT [id number] [facility] 2021-09-05 07:55:15 2021-09-05 09:16:46 Office Visit [facility] Medical Office Building 1.84.114 350.1.13.10 4.2.7.2.686 [id number] [facility] 2021-09-05 08:00:00 2021-09-05 08:00:00 Outpatient R RUTHIE HANEY [facility] [id number] [facility] 2021-09-05 00:00:00 2021-09-05 00:00:00 Orders Only Doctor Unassigned, [place] [facility] 1.84.114 350.1.13.10 4.2.7.2.686 [id number] [facility] 2021-09-03 02:02:00 2021-09-03 02:31:00 Emergency X LINDA DEGROOT [facility] ERT [id number] [facility] 2021-08-31 11:17:00 2021-08-31 11:30:00 Emergency Guru Meza [facility] 1.84.114 350.1.13.10 4.2.7.2.686 [id number] [facility] 2021-08-31 11:17:00 2021-08-31 11:30:00 Emergency X GURU MEZA [facility] ERT [id number] [facility] 2021-08-31 11:17:00 2021-08-31 11:30:00 Emergency X GURU MEZA [facility] ERT [id number] [facility] 2021-08-30 10:17:00 2021-08-30 12:25:00 Emergency Timothy Bailey [facility] 1.84.114 350.1.13.10 4.2.7.2.686 [id number] [facility] 2021-08-30 10:17:00 2021-08-30 12:25:00 Emergency X TIMOTHY BAILEY [facility] ERT [id number] [facility] 2021-08-30 10:17:00 2021-08-30 12:25:00 Emergency X TIMOTHY BAILEY [facility] ERT [id number] [facility] 2021-08-26 12:18:00 2021-08-26 12:26:00 Emergency Prosper Sims [facility] 1.2.840.114 350.1.13.10 4.2.7.2.686 [id number] [facility] 2021-08-26 12:18:00 2021-08-26 12:26:00 Emergency X LINDA DEGROOT [facility] ERT [id number] [facility] 2021-08-26 12:18:00 2021-08-26 12:26:00 Emergency X ZANE ILNDA [facility] ERT [id number] [facility] 2021-08-26 12:18:00 2021-08-26 12:26:00 Emergency X LINDA DEGROOT [facility] ERT [id number] [facility] 2021-08-23 14:09:00 2021-08-23 14:43:00 Emergency Linda [facility] 1.2.840.114 350.1.13.10 4.2.7.2.686 [id number] [facility] 2021-08-23 14:09:00 2021-08-23 14:43:00 Emergency X LINDA DEGROOT [facility] ERT [id number] [facility] 2021-08-23 14:09:00 2021-08-23 14:43:00 Emergency X LINDA DEGROOT [facility] ERT [id number] [facility] 2021-08-09 20:23:00 2021-08-09 21:57:00 Emergency Meghan Harvey [facility] 1.2.840.114 350.1.13.10 4.2.7.2.686 [id number] [facility] 2021-08-09 16:53:00 2021-08-09 17:40:00 Emergency X [facility] ERT [id number] [facility] 2021-08-09 16:53:00 2021-08-09 17:40:00 Emergency [facility] 1.2.840.114 350.1.13.10 4.2.7.2.686 [id number] [facility] 2021-08-09 16:53:00 2021-08-09 17:40:00 Emergency X [facility] ERT [id number] [facility] 2021-08-05 01:08:00 2021-08-05 04:43:00 Emergency Rekha Chau [facility] 1.2.840.114 350.1.13.10 4.2.7.2.686 [id number] [facility] 2021-08-05 01:08:00 2021-08-05 04:43:00 Emergency X REGIS CORTEZ [facility] ERT [id number] [facility] 2021-06-24 12:31:00 2021-06-24 14:00:00 Emergency Janet Love [facility] 1.2.840.114 350.1.13.10 4.2.7.2.686 [id number] [facility] 2021-06-24 12:31:00 2021-06-24 14:00:00 Emergency X Janet LOVE [facility] ERT [id number] [facility] 2021-06-24 12:31:00 2021-06-24 14:00:00 Emergency X Janet LOVE [facility] ERT [id number] [facility] 2021-06-19 11:32:00 2021-06-19 14:24:00 Emergency Chay Weeks [facility] 1.2.840.114 350.1.13.10 4.2.7.2.686 [id number] [facility] 2021-06-19 11:32:00 2021-06-19 14:24:00 Emergency X CHAY WEEKS [facility] ERT [id number] [facility] 2021-06-02 12:03:00 2021-06-02 12:24:00 Emergency Barry Gomez [facility] 1.2.840.114 350.1.13.10 4.2.7.2.686 [id number] [facility] 2021-06-02 12:03:00 2021-06-02 12:24:00 Emergency X BARRY GOMEZ [facility] ERT [id number] [facility] 2021-06-02 12:03:00 2021-06-02 12:24:00 Emergency X BARRY GOMEZ [facility] ERT [id number] [facility] 2021-05-22 09:22:00 2021-05-22 10:24:00 Emergency Brian Gray [facility] 1.2.840.114 350.1.13.10 4.2.7.2.686 [id number] 2021-05-22 09:22:00 2021-05-22 10:24:00 Emergency Brian Gray [facility] 1.2.840.114 350.1.13.10 4.2.7.2.686 [id number] [facility] 2021-05-22 09:22:00 2021-05-22 10:24:00 Emergency X BRIAN GRAY [facility] ERT [id number] [facility] 2021-05-22 09:22:00 2021-05-22 10:24:00 Emergency X BRIAN GRAY [facility] ERT [id number] [facility] 2021-04-05 11:37:00 2021-04-05 13:25:00 Emergency Meghan Harvey [facility] 1.2.840.114 350.1.13.10 4.2.7.2.686 [id number] 2021-04-05 11:37:00 2021-04-05 13:25:00 Emergency Meghan Harvey [facility] 1.2.840.114 350.1.13.10 4.2.7.2.686 [id number] [facility] 2021-04-05 11:37:00 2021-04-05 13:25:00 Emergency X MEGHAN HARVEY [facility] ERT [id number] [facility] 2021-04-05 11:37:00 2021-04-05 13:25:00 Emergency X MEGHAN HARVEY [facility] ERT [id number] [facility] 2021-03-16 08:30:00 2021-03-16 10:05:00 Emergency Linda [facility] 1.2.840.114 350.1.13.10 4.2.7.2.686 [id number] 2021-03-16 08:30:00 2021-03-16 10:05:00 Emergency Linda Degroot [facility] 1.2.840.114 350.1.13.10 4.2.7.2.686 [id number] [id number] [facility] 2021-03-16 00:00:00 2021-03-16 00:00:00 Orders Only Doctor Unassigned, [place] [facility] 1.2.840.114 350.1.13.10 4.2.7.2.686 [id number] 2021-03-16 00:00:00 2021-03-16 00:00:00 Orders Only Doctor Unassigned, [place] [facility] 1.2.840.114 350.1.13.10 4.2.7.2.686 [id number] [facility] 2021-03-02 00:00:00 2021-03-02 00:00:00 Telephone Chong Bailey [facility] Surgical Specialti ke[place] 1.2.840.114 350.1.13.10 4.2.7.2.686 [id number] 2021-03-02 00:00:00 2021-03-02 00:00:00 Telephone Chong Bailey [facility] Specialti [facility] 1.2.840.114 350.1.13.10 4.2.7.2.686 [id number] [facility] 2021-02-17 17:20:00 2021-02-17 18:16:00 Emergency Linda [facility] 1.2.840.114 350.1.13.10 4.2.7.2.686 [id number] 2021-02-17 17:20:00 2021-02-17 18:16:00 Emergency Linda Deg[facility] 1.2.840.114 350.1.13.10 4.2.7.2.686 [id number] [facility] 2021-02-17 17:20:00 2021-02-17 18:16:00 Emergency X LINDA DEGROOT [facility] ERT [id number] [facility] 2021-02-17 17:20:00 2021-02-17 18:16:00 Emergency X LINDA DEGROOT [facility] ERT [id number] [facility] 2021-02-12 11:02:00 2021-02-12 11:46:00 Emergency Chay Weeks [facility] 1.2.840.114 350.1.13.10 4.2.7.2.686 [id number] 2021-02-12 11:02:00 2021-02-12 11:46:00 Emergency X CHAY WEEKS [facility] ERT [id number] [facility] 2021-02-12 11:02:00 2021-02-12 11:46:00 Emergency X CHAY WEEKS [facility] ERT [id number] [facility] 2021-02-12 11:02:00 2021-02-12 11:46:00 Emergency Chay Weeks [facility] 1.2.840.114 350.1.13.10 4.2.7.2.686 [id number] [facility] 2020-09-28 00:00:00 2020-09-28 00:00:00 Pete Barboza [facility] Surgical Specialti [facility] 1.2.840.114 350.1.13.10 4.2.7.2.686 [id number] 2020-09-28 00:00:00 2020-09-28 00:00:00 Pete Barboza [facility] Surgical Specialti [facility] 1.2.840.114 350.1.13.10 4.2.7.2.686 [id number] [facility] 2020-07-18 11:27:00 2020-07-18 12:25:00 Emergency Isaac [facility] 1.2.840.114 350.1.13.10 4.2.7.2.686 [id number] 2020-07-18 11:27:00 2020-07-18 12:25:00 Emergency Isaac [facility] 1.2.840.114 350.1.13.10 4.2.7.2.686 [id number] [id number] [facility] 2020-07-14 10:35:00 2020-07-14 11:01:00 Emergency Isaac [facility] 1.2.840.114 350.1.13.10 4.2.7.2.686 [id number] [id number] 2020-07-14 10:35:00 2020-07-14 11:01:00 Emergency X BRIAN GRAY [facility] ERT [id number] [facility] 2020-07-14 10:35:00 2020-07-14 11:01:00 Emergency Brian Gray [facility] 1.2.840.114 350.1.13.10 4.2.7.2.686 [id number] [id number] [facility] 2020-07-06 00:00:00 2020-07-06 00:00:00 Letter (Out) [facility] 1.2.840.114 350.1.13.10 4.2.7.2.686 [id number] 2020-07-06 00:00:00 2020-07-06 00:00:00 Letter (Out) [facility] 1.2.840.114 350.1.13.10 4.2.7.2.686 [id number] [facility] 2020-07-03 14:13:00 2020-07-03 17:14:00 Emergency Janet Love [facility] 1.2.840.114 350.1.13.10 4.2.7.2.686 [id number] [id number] 2020-07-03 14:13:00 2020-07-03 17:14:00 Emergency Janet Love [facility] 1.2.840.114 350.1.13.10 4.2.7.2.686 [id number] [id number] [facility] 2020-06-18 00:00:00 2020-06-18 00:00:00 Orders Only Doctor Unassigned, [place] 1.2.840.114 350.1.13.10 4.2.7.2.686 [id number] 2020-06-18 00:00:00 2020-06-18 00:00:00 Orders Only Doctor Unassigned, [place] [facility] 1.2.840.114 350.1.13.10 4.2.7.2.686 [id number] [facility] 2020-06-11 07:22:31 2020-06-11 07:47:00 [facility] 1.2.840.114 350.1.13.10 4.2.7.2.686 [id number] 084 [id number] 2020-06-11 07:22:31 2020-06-11 07:47:00 [facility] 1.2.840.114 350.1.13.10 4.2.7.2.686 [id number] [id number] [facility] 2020-06-11 00:00:00 2020-06-11 00:00:00 Orders Only Doctor Unassigned, [place] [facility] 1.2.840.114 350.1.13.10 4.2.7.2.686 [id number] 2020-06-11 00:00:00 2020-06-11 00:00:00 Orders Only Doctor Unassigned, [place] [facility] 1.2.840.114 350.1.13.10 4.2.7.2.686 [id number] [facility] 2020-06-03 15:21:35 2020-06-03 18:43:00 Emergency Chay Weeks [facility] 1.2.840.114 350.1.13.10 4.2.7.2.686 [id number] [id number] 2020-06-03 15:21:35 2020-06-03 18:43:00 Emergency Chay Weeks [facility] 1.2.840.114 350.1.13.10 4.2.7.2.686 [id number] [id number] [facility] 2020-06-03 00:00:00 2020-06-03 00:00:00 Orders Only Doctor Unassigned, [place] [facility] 1.2.840.114 350.1.13.10 4.2.7.2.686 [id number] 2020-06-03 00:00:00 2020-06-03 00:00:00 Orders Only Doctor Unassigned, [place] [facility] 1.2.840.114 350.1.13.10 4.2.7.2.686 [id number] [facility] 2020-05-31 00:00:00 2020-05-31 00:00:[facility] [place] 1.2.840.114 350.1.13.10 4.2.7.2.686 [id number] 2020-05-31 00:00:00 2020-05-31 00:00:00 Telephone Tamra [facility] Special[facility] es [place] 1.2.840.114 350.1.13.10 4.2.7.2.686 [id number] [facility] 2020-05-19 00:00:00 2020-05-19 00:00:00 Refill [facility] es [place] 1.2.840.114 350.1.13.10 4.2.7.2.686 [id number] [facility] 2020-05-18 13:35:31 2020-05-18 23:59:00 Outpatient R CHONG BAILEY [facility] [id number] [facility] 2020-05-18 13:35:00 2020-05-18 23:59:00 Hospital Encounter Chong Bailey [facility] 1.2.840.114 350.1.13.10 4.2.7.2.686 [id number] [facility] 2020-05-18 15:22:03 2020-05-18 16:00:04 Office Visit Mamie Barboza [facility] [place] 1.2.840.114 350.1.13.10 4.2.7.2.686 [id number] 2020-05-18 15:22:03 2020-05-18 16:00:04 Office Visit Mamie Barboza [facility] [place] 1.2.840.114 350.1.13.10 4.2.7.2.686 [id number] [facility] 2020-05-18 00:00:00 2020-05-18 00:00:00 Telephone Chong Bailey [facility] [place] 1.2.840.114 350.1.13.10 4.2.7.2.686 [id number] [facility] 2020-05-18 00:00:00 2020-05-18 00:00:00 Refill Mamie Barboza [facility] [place] 1.2.840.114 350.1.13.10 4.2.7.2.686 [id number] [facility] 2020-05-13 09:27:28 2020-05-13 10:04:00 Emergency Linda [facility] 1.2.840.114 350.1.13.10 4.2.7.2.686 [id number] [facility] 2020-05-13 09:16:00 2020-05-13 09:16:00 Emergency X [facility] ERT [id number] [facility] 2020-05-08 00:00:00 2020-05-08 00:00:00 Orders Only Doctor Unassigned, [place] 1.2.840.114 350.1.13.10 4.2.7.2.686 [id number] [facility] 2020-05-07 07:13:15 2020-05-07 07:48:00 Emergency Brian [facility] 1.2.840.114 350.1.13.10 4.2.7.2.686 [id number] [facility] 2020-05-07 07:13:15 2020-05-07 07:13:15 Emergency X BRIAN GRAY [facility] ERT [id number] [facility] 2020-04-09 19:10:48 2020-04-09 20:54:00 Emergency Jacqueline Luu [facility] 1.2.840.114 350.1.13.10 4.2.7.2.686 [id number] [facility] 2020-04-09 19:04:00 2020-04-09 19:04:00 Emergency X [facility] ERT [id number] [facility] 2019-08-12 19:51:41 2019-08-12 20:52:00 Emergency [facility] 1.2.840.114 350.1.13.10 4.2.7.2.686 [id number] [facility] 2019-07-21 00:00:00 2019-07-21 00:00:00 Transition of Care Jeannie Lopez 1.2.840.114 [id number] [id number] [id number] [facility] 2019-07-17 11:29:01 2019-07-20 16:22:00 Hospital Encounter Meghan Harvey Shawn P Laforte, Roman Castro [facility] [id number] [id number] [id number] [id number] [facility] 2019-06-29 09:20:31 2019-06-29 10:41:00 Emergency [facility] [id number] [id number] 4.2.7.2.686 [id number] [facility] 2019-06-29 00:00:00 2019-06-29 00:00:00 Orders Only Doctor Unassigned, [facility] [id number] [id number] 4.2.7.2.686 [id number] [facility] Results Test Description Test Time Test Comments Results Resul t Comments Source XR ANKLE 3+ VW RIGHT 4 16:50:09 EXAM: XR ANKLE 3+ VW RIGHT HISTORY: 63 years-old Female with right ankle pain from a few days, deniesinjury. COMPARISON: Left ankle radiograph dated 09/05/2021.. FINDINGS: Radiographs of the right ankle demonstrate no acute fractures ordislocations. Chronic posttraumatic remodeling of the lateral malleolustip. Tiny osteophytes are present. Joint spaces are preserved. Alignment iswithin normal limits. Medial malleolus soft tissue swelling. [facility] XR KNEE 3 VW BILATERAL 4 16:48:11 EXAM: XR KNEE 3 VW BILATERAL HISTORY: 63 years-old Female with bilateral knee pain from a few days,denies injury. COMPARISON: Knee radiograph performed 04/08/2023. FINDINGS: Radiographs of the bilateral knees demonstrate no acute fractures ordislocations. Bilateral moderate tricompartment osteoarthritic changesconsisting of joint space narrowing, subchondral sclerosis, andosteophytosis, right greater than left. There is vacuum phenomenon of theright knee joint. Trace left knee effusion is present. [facility] VW [id number] 17:11:04HISTORY: ?Pain. S/P fall. FINDINGS: AP, lateral, oblique views of left elbow showed no acute fractureor dislocation. 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 Bony ossicle adjacent to medial humeral epicondylecould be secondary to remote trauma. CONCLUSIONS: No acute fracture or dislocation in left elbow. Elbow jointeffusion and changes of degenerative arthritis noted.[facility] LUMBAR SPINE 3 [id number] 17:09:55HISTORY: ?Low back pain. S/P fall. FINDINGS: AP, lateral and spot views of the lumbar spines are obtained andcompared with 02/19/2023 study. AP view showed mild lumbar dextroscoliosis. Known compression fracture of L4 with loss of 30-40% of its height noted,unchanged. Minimal spondylolisthesis notedat L4- L5. Kyphoplasty changes are seen at L2. Mild changes of degenerative discdisease noted at L1-L2, L2-L3, there is L4. CONCLUSIONS: No acute findings.[facility] URINALYSIS W SPECIFIC [id number] 18:29:00* Test Item Value Reference Range Interpretation [...] 3267) Lab Interpretation (test cod e = 68559-4) Abnormal [facility] URINALYSIS W SPECIFIC [id number] 18:29:00* Test Item Value Reference Range Interpretation [...] 3267) Lab Interpretation (test cod e = 26018-7) Abnormal [facility] URINALYSIS W SPECIFIC [id number] 18:29:00* Test Item Value Reference Range Interpretation [...] 3267) Lab Interpretation (test cod e = 86865-9) [id number] 15:31:00* Test Item Value Reference Range Interpretation Comme nts POCT PREG (test code = 1605) Negative On board controls acceptable with C Line (test code = 3574) Yes POCT PREG LOT # (test code = 3575) POCT PREG TEST DATE ( test code = 3576) [facility] [id number] 15:31:00* Test Item Value Reference Range Interpretation Comme nts POCT PREG (test code = 1605) Negative On board controls acceptable with C Line (test code = 3574) Yes POCT PREG LOT # (test code = 3575) POCT PREG TEST DATE ( test code = 3576) [facility] [id number] 15:31:00* Test Item Value Reference Range Interpretation Comme nts POCT PREG (test code = 1605) Negative On board controls acceptable with C Line (test code = 3574) Yes POCT PREG LOT # (test code = 3575) POCT PREG TEST DATE ( test code = 3576) [facility] URINALYSIS W SPECIFIC [id number] 19:29:00* Test Item Value Reference Range Interpretation [...] clear Lab Interpretation (test cod e = 39255-5) Abnormal [facility] [id number] 19:28:00* Test Item Value Reference Range Interpretation Comme nts POCT PREG (test code = 1605) Negative On board controls acceptable with C Line (test code = 3574) Yes POCT PREG LOT # (test code = 3575) POCT PREG TEST DATE ( test code = 3576) Lab Interpretation (test cod e = 57715-6) Normal [facility] URINALYSIS W SPECIFIC [id number] 16:43:00* Test Item Value Reference Range Interpretation [...] clear Lab Interpretation (test cod e = 28644-2) Abnormal [facility] URINALYSIS W SPECIFIC [id number] 16:43:00* Test Item Value Reference Range Interpretation [...] clear Lab Interpretation (test cod e = 75170-0) Abnormal [facility] URINALYSIS W SPECIFIC [id number] 16:43:00* Test Item Value Reference Range Interpretation [...] clear Lab Interpretation (test cod e = 02556-1) Abnormal [facility] TexasTROP[facility] [id number] 16:02:39* Test Item Value Reference Range Interpretation Comments TROPONIN I (test code = 3090858398) 0.014 ng/mL See_Comment [Automated message] The system [...] of biotin. Lab Interpretation (test code = 51987-2) Normal [facility] TexasLIPASE2022-10-09 15:37:17* Test Item Value Reference Range Interpretation Comme nts LIPASE (test code = 3581809299) 80 U/L 0-220 Lab Interpretation (test cod e = 19749-7) Normal [facility] TexasN-TERMINAL [id number] 15:37:17* Test Item Value Reference Range Interpretation Comme nts NT-proBNP (test code = 8268519684) 145 pg/mL See_Comment H [Automated message] The system which generated this result transmitted reference range: <=125. The reference range was not used to interpret this result as normal/abnormal. DUNCAN (test code = DUNCAN) Biotin has been reported to cause a negative bias, interpret results relative to patient's use of biotin. Lab Interpretation (test code = 57557-4) Abnormal [facility] TexasTHYROID STIMULATING [id number] 15:37:17 * Test Item Value Reference Range Interpretation Comme nts TSH (test code = 5228514378) See_Comment Biotin has been reported to cause a negative bias, interpret results relative to patient's use of biotin. [Automated message] The system which generated this result transmitted reference range: 0.45 - 4.70 mIU/L. The reference range was not used to interpret this result as normal/abnormal. Lab Interpretation (test code = 05310-3) Normal [facility] TexasMAGNESIUM2022-10-09 15:37:17* Test Item Value Reference Range Interpretation Comme nts MAGNESIUM (test code = 3961718344) 1.6 mg/dL 1.7-2.4 L Lab Interpretation (test cod e = 98606-0) Abnormal [facility] TexasCOMP. METABOLIC PANEL (71801)2022-09-01 15:37:16* Test Item Value Reference Range Interpretation Comme nts NA (test code = 7159219223) 139 mmol/L 135-145 K (test code = 8755104978) 4.0 mmol/L 3.5-5 CL (test code = 4145657860) 100 mmol/L 98-108 CO2 TOTAL (test code = 3041507449) 27 mmol/L 23-31 AGAP (test code = 7557853421) 2-16 BUN (test code = 7600784142) 17 mg/dL 7-23 GLUCOSE (test code = 5172781632) 154 mg/dL 70-110 H CREATININE (test code = 1376958143) 0.62 mg/dL 0.5-1.04 TOTAL BILI (test code = 4462250581) 0.9 mg/dL 0.1-1.1 CALCIUM (test code = 1528659000) 9.7 mg/dL 8.6-10.6 T PROTEIN (test code = 9117858837) 7.3 g/dL 6.3-8.2 ALBUMIN (test code = 8555916823) 4.6 g/dL 3.5-5 ALK PHOS (test code = 4791774437) 88 U/L 34-122 ALTv (test code = 1742-6) 23 U/L 5-35 AST(SGOT) (test code = 9903071362) 27 U/L 13-40 eGFR (test code = 0563889296) mL/min/1.73m2 DUNCAN (test code = DUNCAN) Association [...] imaging tests). Lab Interpretation (test code = 49140-6) Abnormal [facility] TexasETHANOL2022-10-09 15:26:13 ALCOHOL<10mg/dL09/01/2022 10:26 AM [facility]10 Lzmivneo30-036 Toxic>100 Depression of DEPUTY EDITOR IN CHIEF>400 Fatalities ReportedUnBaylor Scott & White Medical Center – Marble FallsD-[id number] 14:51:34* Test Item Value Reference Range Interpretation Comments D-DIMER (test code = 5852643077) See_Comment H [Automated message] The system which [...] a diagnosis. Lab Interpretation (test code = 99960-1) Abnormal [facility] TexasCBC WITH [id number] 14:40:57* Test Item Value Reference Range Interpretation Comme nts WBC (test code = 6690-2) See_Comment [Automated Puridify] The system which generated this result transmitted reference range: 4.30 - 11.10 10*3/?L. The reference range was not used to interpret this result as normal/abnormal. RBC (test code = 789-8) See_Comment [Automated [employer]] The system which generated this result transmitted [...] 34.6 g/dL 31.6-35.1 RDW-SD (test code = 08066-4) 49.3 fL 39-49.9 RDW-CV (test code = 788-0) 14.8 % 12-15.5 PLT (test code = 777-3) See_Comment [Automated messa ge] The system which generated this result transmitted reference range: 166 - 358 10*3/?L. The reference range was not used to interpret this result as normal/abnormal. MPV (test code = 64128-4) 9.5 fL 9.5-12.9 NRBC/100 WBC (test code = 5113004126) See_Comment [Automated [employer] ssage] The system which generated this result transmitted reference range: 0.0 - 10.0 /100 WBCs. The reference range was not used to interpret this result as normal/abnormal. NRBC x10^3 (test code = 2105253734) See_Comment [Automated messa ge] The system which generated this result transmitted reference range: 10*3/?L. The reference range was not used to interpret this result as normal/abnormal. GRAN MAT (NEUT) % (test code = 770-8) 58.0 % IMM GRAN % (test code = 6866019195) 0.20 % LYMPH % (test code = 736-9) 35.7 % MONO % (test code = 5905-5) 5.6 % EOS % (test code = 713-8) 0.2 % BASO % (test code = 706-2) 0.3 % GRAN MAT x10^3(ANC) (test code = 8433066809) 5.10 10*3/uL 1.88-7.09 IMM GRAN x10^3 (test code = 1092180456) 0-0.06 LYMPH x10^3 (test code = 731-0) 3.14 10*3/uL 1.32-3.29 MONO x10^3 (test code = 742-7) 0.49 10*3/uL 0.33-0.92 EOS x10^3 (test code = 711-2) 0.03-0.39 L BASO x10^3 (test code = 704-7) 0.03 10*3/uL 0.01-0.07 Lab Interpretation (test code = 39243-5) Abnormal [facility] TexasComprehensive Metabolic [id number] 09:02:00* Test Item Value Reference Range Interpretation [...] = ALP) 80 U/L 46-116 N Ethanol [id number] 09:02:00* Test Item Value Reference Range Interpretation Comme nts Ethanol (test code = ETOH) < 3 mg/dL HCG, Serum Qual (LAB)2021-08-10 09:02:00* Test Item Value Reference Range Interpretation Comme nts HCG, Serum Qual (LAB) (test code = HCGQ) Negative Negative Coronavirus PCR, COVID19 [id number] 09:02:00* Test Item Value Reference Range Interpretation Comme nts Coronavirus PCR, COVID19 Rapid (test code = SARSCOV2) For use under Emergency Use Authorization (EUA) only. Coronavirus PCR, COVID19 Rapid (test code = CRVPTRM89.1) Reference Range: Negative SARS-CoV-2 PCR Result: (test code = SARS-CoV-2 PCR Result:) Negative by PCR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 Nghia Menendez MD [facility] Showing recent visits within past 540 days with a meds authorizing provider and meeting all other requirements Future Appointments Date Type Provider Dept 03/15/24 Appointment Nghia Menendez MD [facility] Showing future appointments within next 150 days with a meds authorizing provider and meeting all other requirements [facility] 2024-02-11 09:26:09 Pt requesting refill HYDROcodone-acetaminophen 10-325 mg tablet [facility] Pharmacy [place] - [address] AT [facility] & [address] Jerome Cuevas [facility] 2023-06-24 12:14:22 Formatting of this n ote might be different from the original. [employer] denied generic symbicort inhaler. Re submitted as brand name medically necessary in attempt for coverage. Will check back with pharmacy this afternoon. [facility] 2023-06-23 06:12:19 Formatting of this n ote might be different from the original. That's good. T [facility] 2023-06-19 14:15:58 Formatting of this n ote might be different from the original. Spoke to the daughter and she wants a provider referral and any other referrals for any other services that her mother can be assisted with. Told her to call her moms insurance to see who is in network with them and I also gave her Department of Aging Disability Services number as well. Tayla Shanks MA 06/19/2023 2:20 PM Tayla Shanks [facility] 2023-06-16 10:26:33 Formatting of this n ote might be different from the original. She is looking for some one to help with cooking, cleaning, etc. I don't think that service is available here. [facility] 2023-06-16 10:14:22 Formatting of this n ote might be different from the original. Please review and advise. Elizabeth Archibald RN [facility] 2023-06-16 09:55:28 Formatting of this n ote might be different from the original. Pt is wanting to discuss home health says she can barely stand to wash her own dishes, say she discussed this previously. Call pt on temp #[id number] Lulu Canas [facility] 2023-06-10 16:49:35 Formatting of this n ote might be different from the original. Received PA from [employer] MOJICA:[email or web address] Valentina Nguyen [facility] 2021-08-10 12:04:00 [facility] enter [address] [place] [address] Emergency Department Document Signed Patient: Masha Cunningham Medical Record#: [id number] : 1960 Acct:[id number] Age/Sex: 60 / F Admit/Reg Date: 08/10/21 Loc: [id number] Room: Report Number: [id number]: Christy Partida DO Arrival - [...] 94.50, MCH 30.4, MCHC 32.20, RDW Coeff of Gabriel 14.9 H, Plt Count 304.0, MPV 9.5, Immature Gran % (Auto) 0.4, Neut % (Auto) 76.8 H, Lymph % (Auto) 16.9, [place] % (Auto) 5.5, Eos % (Auto) 0.1, Baso % (Auto) 0.3, Neut # (Auto) 7.3, Lymph # (Auto) 1.60, [place] # (Auto) 0.52, Eos # (Auto) 0.01, Baso # (Auto) 0.03, Immature Gran # (Auto) 0.04, Absolute Nucleated RBC 0, Nucleated RBC % (auto) 0 08/10/21 09:02: Sodium 142.0, Potassium 3.6, Chloride 108 H, Carbon Dioxide 26, Anion Gap 8, BUN 12, Creatinine 0.81, Estimated Creat Clear 76.06, Est GFR [...] Pcp-Md Vallejo MD [Primary Care Provider] - ([facility] [address] [place] [address], [facility] [address] [id number] Telephone #[phone] [address] ) Print Language: Faroese Dictated By: Christy Partida DO Signed By: Christy Partida DO 08/10/21 1351 DD/ 1204 TD/TT: 08/10/21 1204 Yarn Tester: NUVIA cc: KAREN* Pcp-Md CHRISTOPHER Vallejo [facility]
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
--- NOTE | 2024-09-04 16:01 | ER ---
Nurse's Notes [facility] Name: Afua Cunningham Age: 63 yrs Sex: Female : 1960 Arrival Date: 09/04/2024 Time: 15:28 Bed 2 Private MD: Diagnosis: Pain in right leg-chronic Presentation: 09/04 15:39 Chief complaint: EMS states: Called to patient's home due to patient having low back cm10 pain that radiates to bilateral legs. Pt has a history of chronic pain and has been out of her pain medicine for 24 hrs. Pt rates her pain a 09/02. Pt states that she has an appointment with pain management doctor on Friday. Coronavirus screen: Client denies travel out of the [place] in the last 14 days. Ebola Screen: Patient denies travel to an Ebola-affected area in the 21 days before illness onset. No symptoms or risks identified at this time. Initial Sepsis Screen: Does the patient meet any 2 criteria? No. Patient's initial sepsis screen is negative. Does the patient have a suspected source of infection? No. Patient's initial sepsis screen is negative. Risk Assessment: Do you want to hurt yourself or someone else? Patient reports no desire to harm self or others. Onset of symptoms was September 04, 2024. 15:39 Method Of Arrival: EMS: [facility] 15:39 Acuity: ASHA 4 cm10 Triage Assessment: 15:41 General: Appears in no apparent distress. comfortable, Behavior is calm, cooperative. cm10 Pain: Complains of pain in back, right leg and left leg. Pain: Pain currently is 10 out of 10 on a pain scale. Neuro: No deficits noted. Level of Consciousness is awake, alert, obeys commands, Oriented to person, place, time, situation, Appropriate for age. Respiratory: No deficits noted. Airway is patent Respiratory effort is even, unlabored, Respiratory pattern is regular, symmetrical. Musculoskeletal: Reports pain in back, right leg and left leg. Historical: - Allergies: 15:40 No Known Allergies; cm10 - PMHx: 15:40 Anxiety; Asthma; Back pain; Depression; fx in middle of back; GERD; Hypertension; cm10 Schizophrenia; UTI; Chronic pain; - PSHx: 15:40 tubal ligation; cm10 - Immunization history:: Adult Immunizations up to date. - Infectious Disease History:: Denies. - Social history:: Smoking status: Patient reports the use of cigarette tobacco products, smokes one-half pack cigarettes per day. Screenin:43 [facility] ED Fall Risk Assessment (Adult) History of falling in the last 3 months, cm10 including since admission No falls in past 3 months (0 pts) Confusion or Disorientation No (0 pts) Intoxicated or Sedated No (0 pts) Impaired Gait Yes (1 pt) Mobility Assist Device Used No (0 pt) Altered Elimination No (0 pt) Score/Fall Risk Level 0 - 2 = Low Risk Oriented to surroundings, Maintained a safe environment, Hourly rounding (assess needs \T\ fall precautionary measures) done. Abuse screen: Denies threats or abuse. Denies injuries from another. Nutritional screening: No deficits noted. Tuberculosis screening: No symptoms or risk factors identified. Assessment: 16:09 Reassessment: D/C pending medication administration wait time. mb9 16:39 Reassessment: No changes from previously documented assessment. Patient and/or family mb9 updated on plan of care and expected duration. Pain level reassessed. Patient is alert, oriented x 3, equal unlabored respirations, skin warm/dry/pink. Vital Signs: 15:39 BP 129 / 74; Pulse 88; Resp 18; Temp 98.5; Pulse Ox 98% ; Weight 77.11 kg; Height 5 ft. cm10 1 in. ; Pain 10/10; 16:39 BP 134 / 85; Pulse 82; Resp 16; Pulse Ox 100% on R/A; mb9 15:39 Body Mass Index 32.12 (77.11 kg, 154.94 cm) cm10 15:39 Pain Scale: Adult cm10 ED Course: 15:31 Patient arrived in ED. cm10 15:34 [facility] kb 15:34 Bruce Banda MD is Attending Physician. kb 15:40 Triage completed. cm10 15:43 Arm band placed on Patient placed in an exam room, on a stretcher, on pulse oximetry. cm10 15:44 Ophelia العلي, RN is Primary Nurse. cm10 15:44 Patient has correct armband on for positive identification. Bed in low position. Call cm10 light in reach. Side rails up X2. Provided Education on: ER process and procedures.. Pulse ox on. NIBP on. 16:39 No provider procedures requiring assistance completed. Patient did not have IV access mb9 during this emergency room visit. Administered Medications: 16:09 Drug: Hydrocodone-Acetaminophen PO (7.5 mg-325 mg) 1 tabs PO once Route: PO; mb9 16:39 Follow up: Response: No adverse reaction mb9 16:09 Drug: Ketorolac IM 30 mg IM once Route: IM; Site: right deltoid; mb9 16:39 Follow up: Response: No adverse reaction mb9 Medication: 15:43 VIS not applicable for this client. cm10 Outcome: 16:00 Discharge ordered by . gelacio 16:39 Discharged to home ambulatory, mb9 16:39 Condition: stable 16:39 Discharge instructions given to patient, Instructed on discharge instructions, follow up and referral plans. Demonstrated understanding of instructions, follow-up care, 16:40 Patient left the ED. mb9 Signatures: Misti Barragan, JULY-C JULY-Diane Patton RN RN mb9 Ophelia العلي RN RN cm10
[2024-09-04] MEDS ORDERED: KETOROLAC 30 MG/ML INJ ONE (16:04)
[2024-09-04] MEDS ORDERED: HYDROCODONE/APAP 7.5/325 MG TAB ONE (16:05)
[2024-09-04 19:56] VITALS: TEMP 98.5
[2024-09-04 19:58] VITALS: BP 134/85; O2SAT 100
== END 2024-09-04 16:40 | disposition home or self-care (01) ==
LOC: ER 15:28
DX: M79.604 Pain in right leg (principal); F17.210 Nicotine dependence, cigarettes, uncomplicated

== ENCOUNTER 2024-09-12 19:37 | Emergency (ER) | payer OTHER ==
--- OUTSIDE RECORDS SUMMARY | 2024-09-12 19:43 | XMS REPORT | Continuity of Care Document ---
Author Name Unknown Address [address] [facility] [address] [place] [address] [facility] thconnect Address [address] [facility] [address] [place] [address] Care Team Providers Care Learning Engineer Name Role Phone Pcp-None Primary Care Physician Unavailab NGHIA Shukla Attending Clinician Unavailable Tang WHITE, Mackenzie Attending Clinician Nghia Menendez MD Attending Clinician [phone] CHONG BAILEY Attending Clinician Unavailabl CHONG Lance Attending Clinician Unavailabl Chong Lance MD Attending Clinician +[phone] MARYCHUY CERVANTES Attending Clinician Unavailable MARYCHUY CERVANTES Attending Clinician Unavailable Yue Hussein MD Attending Clinician [phone] Puneet Galvez Attending Clinician + [phone] PUNEET NOVOA Attending Clinician Unavailable Unknown, Attending Attending Clinician Unavailab Marychuy Randolph PA-C Attending Clinician + [phone] Radha Flores MD Attending Clinician + [phone] [facility] Attending Clinician Un available Daniela Germain RN Attending Clinician UnavailMACKENZIE Hermosillo Attending Clinician Unavailable Doctor Unassigned, [place] Attending Clinician U navailable ADELITA HOGAN Attending Clinician Unavailable Doctor Unassigned, [place] Attending Clinician U navailable DAYTON CALDERON Attending Clinician Unavailable Dayton Calderon DNP Attending Clinician [phone] ELLIE DELUCA Attending Clinician Unavailable JEANMARIE GARCIA Attending Clinician Unavailable Jeanmarie Garcia MD Attending Clinician +[phone] Nghia Menendez MD Attending Clinician + Jeanmarie Garcia MD Attending Clinician +[phone] Vipin Batista Attending Clinician Unavailable GURU MEZA Attending Clinician Unavailable Guru Meza DO Attending Clinician +[phone] CHAY WEEKS S Attending Clinician Unavailable Desi NEWMAN Chay S Attending Clinician [phone] MIRIAM VERGARA Attending Clinician Unavailable ALTON REYES Attending Clinician Unavailable ALTON REYES Attending Clinician Unavailable Mackenzie Beckwith MD Attending Clinician +[phone] YARI HORNE Attending Clinician Unavaila Alton Henderson DO Attending Clinician [phone] JULI TURNER Attending Clinician UnaRAY Dorsey Attending Clinician Unavailable Ellie Deluca MD Attending Clinician [phone] MAMIE BARBOZA Attending Clinician Unavailable Green Kiera MCDOWELL Attending Clinician [phone], [facility] Attending Clinician Unavailable Quentin MORGAN, Heather L Attending Clinician [phone] Ebrahirosamaria HISTOLOGIST TECHNOLOGIST, Domia Attending Clinician [phone] Unknown, Attending Attending Clinician Unavailab PROSPER Lynn Attending Clinician Unavailable DERECK JOHNSON Attending Clinician Unavailable DERECK JOHNSON Attending Clinician Unavailable SONIA PICKARD Attending Clinician Unavaila jr Pickard ACNPSonia Attending Clinician + [phone] Mamie Cabrales Attending Clinician [phone] Chong Bailey MD Attending Clinician [phone] SANDRA ANDRADE Attending Clinician Unavaila ble IbikunSandra Summers F Attending Clinician [phone] MEAGHAN JACOBO Attending Clinician Unavailable DEIDRA MEEK Attending Clinician Unavailable Deidra Meek NP Attending Clinician +[phone] RUTHIE HANEY Attending Clinician Unavailable Layne Weir MD Attending Clinician [phone] LAYNE WEIR Attending Clinician Unavailable Ruthie Davis Attending Clinician +[phone] ISABELLE PRECIADO Attending Clinician Unavailable Isabelle Husain Attending Clinician +[phone] [facility] Attending Clinician Unavail able Mikael Shafer MD Attending Clinician + [phone] ROSY FLOWERS [facility] Attending Clinician Unavaila ble Pob, [facility] Main Attending Clinician UnavailREKHA Sanford Attending Clinician Unavailable Rekha Link Attending Clinician [phone] Provider, [facility] Attending Clinician Unavailable Neli Baron MD Attending Clinician +[phone] Tor WHITE, Rosy K.H. Attending Clinician + [phone] LINDA DEGROOT Attending Clinician Unavailab rosana HERRINGP, Timothy Attending Clinician +[phone] TIMOTHY BAILEY Attending Clinician Unavailable Linda Degroot DO Attending Clinician + [phone] Christy Partida Attending Clinician Unavailable Wes HISTOLOGIST TECHNOLOGIST, Shinrajiv Attending Clinician +[phone] Regis Cortez MD Attending Clinician +[phone] REGIS CORTEZ Attending Clinician Unavailable Janet Tavera Attending Clinician +[phone] Janet LOVE Attending Clinician Unavailable Vinny HISTOLOGIST TECHNOLOGIST, Barry Ferrer Attending Clinician + [phone] BARRY GOMEZ Attending Clinician Unavailable Brian Gray MD Attending Clinician +[phone] BRIAN GRAY Attending Clinician Unavailable MEGHAN HARVEY Attending Clinician Unavailable Ary FIGUEROA, Johnna Tenorio Attending Clinician Unavailab rosana Luu HISTOLOGIST TECHNOLOGIST, Jacqueline Attending Clinician +[phone] Bruce Loco Attending Clinician +[phone] Jessica FIGUEROA, Jeannie Maloney Attending Clinician +[phone] Kali Caban MD Attending Clinician +[phone] Roman Perez Attending Clinician +[phone] JEANMARIE GARCIA Admitting Clinician Unavailable GURU MEZA Admitting Clinician Unavailable SANDRA ANDRADE Admitting Clinician UnavailDEIDRA Choi Admitting Clinician Unavailable LAYNE WEIR Admitting Clinician Unavailable CHONG BAILEY Admitting Clinician UnavailMAMIE Patel Admitting Clinician Unavailable REKHA CHAU Admitting Clinician Unavailable CHAY WEEKS Admitting Clinician Unavailable MEGHAN HARVEY Admitting Clinician Unavailable Mee WHITE, Kali Melo Admitting Clinician [phone] Payers Payer Name Policy Type Policy Number Effective Date Expirati on Date Source [employer]AGE [id number] 2012 00:00:00 [facility] MEDICAID [id number] 2016 00:00:00 [facility] [id number] 2023 00:00:00 2023 00:00:00 Problems Condition Name Condition Details Condition Category Status Onset Date Resolution Date Last Treatment Date Treating Clinician Comments Source Palpitatio ns Palpitatio ns Disease Active 05-11 00:00: 00 [facility] ODOM (dyspnea on exertion) ODOM (dyspnea on exertion) Disease Active 05-11 00:00: 00 [facility] Cigarette smoker Cigarette smoker Disease Active 6 00:00: 00 [facility] Anxiety Anxiety Disease Active 4-25 00:00: 00 [facility] Depression , unspecifie d depression type Depression , unspecifie d depression type Disease Active 9 00:00: 00 [facility] Chronic bilateral low back pain without sciatica Chronic bilateral low back pain without sciatica Disease Active 2021-11 00:00: 00 [facility] Cardiac murmur Cardiac murmur Disease Active 2020-11 0 00:00: 00 [facility] Anemia, unspecifie d type Anemia, unspecifie d type Disease Active 2020-11 0 00:00: 00 [facility] Chronic GERD Chronic GERD Disease Active 2020-11 0 00:00: 00 [facility] Moderate persistent asthma without complicati on Moderate persistent asthma without complicati on Disease Active 2020-11 0 00:00: 00 [facility] Hypertensi on, essential Hypertensi on, essential Disease Active 2020-11 013 00:00: 00 [facility] Drug-seeki ng behavior Drug-seeki ng behavior Disease Active 2020-11 008 00:00: 00 [facility] Altered mental status Altered mental status Disease Active 07-17 00:00: 00 [facility] Obesity (BMI 30-39.9) Obesity (BMI 30-39.9) Disease Active 05-31 00:00: 00 [facility] Hypertensi ve urgency Hypertensi ve urgency Disease Active 05-31 00:00: 00 [facility] Allergies, Adverse Reactions, Alerts Allergy Name Allergy Type Status Severity Reaction(s) Onset Date Inactive Date Treating Clinician Comments Source Unable to Assess DA Active U 08-10 00:00: 00 [facility] No Known Drug Allergie s DA Active U 08-10 00:00: 00 [facility] NO KNOWN ALLERGIE S Drug Class Active [facility] Family History Family Member Diagnosis Comments Start Date Stop Date Sourc e Natural daughter Coronary Heart Disease [facility] Natural mother Coronary Heart Disease [facility] Social History Social Habit Start Date Stop Date Quantity Comments Source History SDOH Alcohol Binge [facility] History SDOH Alcohol Comment [facility] History of tobacco use Passive smoker [facility] Gender identity [facility] Cigarettes smoked current (pack per day) - Reported 2024-08-09 00:00:00 2024-08-09 00:00:00 [facility] Cigarette pack-years 2024-08-09 00:00:00 2024-08-09 00:00:00 [facility] Tobacco use and exposure 2024-08-09 00:00:00 2024-08-09 00:00:00 Smokeless tobacco non-user [facility] Alcoholic beverage intake 2024-08-09 00:00:00 2024-08-09 00:00:00 Ex-drinker (finding) [facility] Alcohol intake 2024-03-18 00:00:00 2024-03-18 00:00:00 Ex-drinker (finding) [facility] History of Social function 2024-01-14 00:00:00 2024-01-14 00:00:00 [facility] Exposure to SARS-CoV-2 (event) 2023-04-07 00:00:00 2023-04-17 09:48:00 Not sure [facility] History SDOH Alcohol Frequency 2019-07-17 00:00:00 2019-07-17 00:00:00 5 [facility] History SDOH Alcohol Std Drinks 2019-07-17 00:00:00 2019-07-17 00:00:00 3 [facility] Education 2019-05-31 00:00:00 2019-05-31 00:00:00 7 [facility] History SDOH Financial 2019-05-31 00:00:00 2019-05-31 00:00:00 1 [facility] History SDOH Transport Med 2019-05-31 00:00:00 2019-05-31 00:00:00 1 [facility] History SDOH Transport Non-Med 2019-05-31 00:00:00 2019-05-31 00:00:00 1 [facility] Sex assigned at 1960 00:00:00 1960 00:00:00 [facility] Smoking Status Start Date Stop Date Source Smokes tobacco daily 2024-08-09 00:00:00 [facility] Medications Ordered Medication Name Filled Medication Name Start Date Stop Date Current Medication? Ordering Clinician Indication Dosage Frequency Signature (SIG) Comments Components Source diclofenac 75 mg EC tablet 2023-11 00:00: 00 Yes [id number] 75mg Take 1 tablet by mouth in the morning and 1 tablet in the evening. Take with meals. [facility] clonazePAM 1 mg tablet 2023-11 00:00: 00 08-30 00:00 :00 Yes [id number] 1mg Take 1 tablet by mouth every morning and evening. [facility] clonazePAM (KLONOPIN) 1 mg tablet 2023-11 005 00:00: 00 Yes [id number] 1mg Take 1 tablet by mouth in the morning and 1 tablet in the evening. [facility] methocarbam oL 500 mg tablet 2023-11 0-04 00:00: 00 09-02 04:59 :00 No [id number] 500mg Take 1 tablet by mouth 4 (four) times daily as needed for Pain (scale 7-10) for up to 5 days. [facility] clonazePAM 1 mg tablet 9-30 00:00: 00 Yes [id number] 1mg Take 1 tablet by mouth in the morning and 1 tablet in the evening. [facility] clonazePAM (KLONOPIN) tablet 1 mg 08-22 02:36: 00 08-22 02:39 :00 No 1mg 1 mg, Oral, ONCE, 1 dose, On 08/21/24 at 2145, Routine [facility] clonazePAM 1 mg tablet 08-21 00:00: 00 08-23 00:00 :00 No [id number] 1mg Take 1 tablet by mouth in the morning and 1 tablet in the evening. [facility] HYDROcodone -acetaminop hen 7.5-325 mg per tablet 08-16 00:00: 00 Yes [id number] 1{tbl} Take 1 tablet by mouth every 6 (six) hours as needed for Pain. Indication s: chronic pain [facility] VENLAFAXINE 75 mg tablet 08-06 00:00: 00 Yes [id number] TAKE 1 TABLET BY MOUTH IN THE MORNING AND 1 TABLET BY MOUTH IN THE EVENING [facility] HYDROcodone -acetaminop hen 7.5-325 mg per tablet 07-15 00:00: 00 08-16 00:00 :00 No [id number] 1{tbl} Take 1 tablet by mouth every 6 (six) hours as needed for Pain. Indication s: chronic pain [facility] clonazePAM (KLONOPIN) 1 mg tablet 06-14 00:00: 00 08-28 00:00 :00 No [id number] 1mg Take 1 tablet by mouth in the morning and 1 tablet in the evening. [facility] HYDROcodone -acetaminop hen 7.5-325 mg per tablet 06-14 00:00: 00 07-15 00:00 :00 No [id number] 1{tbl} Take 1 tablet by mouth every 6 (six) hours as needed for Pain. Indication s: chronic pain [facility] HYDROcodone -acetaminop hen 7.5-325 mg per tablet 20 00:00: 00 06-14 00:00 :00 No [id number] 1{tbl} Take 1 tablet by mouth every 6 (six) hours as needed for Pain. Indication s: chronic pain [facility] clonazePAM (KLONOPIN) 1 mg tablet 04-14 00:00: 00 06-14 00:00 :00 No [id number] 1mg Take 1 tablet by mouth in the morning and 1 tablet in the evening. [facility] HYDROcodone -acetaminop hen 7.5-325 mg per tablet 04-14 00:00: 00 05-13 00:00 :00 No [id number] 1{tbl} Take 1 tablet by mouth every 6 (six) hours as needed for Pain for up to 30 days. Indication s: chronic pain [facility] traZODone 50 mg tablet 04-12 00:00: 00 Yes [id number] 25mg Take 0.5 tablets by mouth at bedtime. [facility] amLODIPine (NORVASC) 10 mg tablet 04-12 00:00: 00 Yes [id number] 10mg Take 1 tablet by mouth in the morning. [facility] HYDROcodone -acetaminop hen 10-325 mg tablet 04-12 00:00: 00 04-14 00:00 :00 No [id number] 1{tbl} Take 1 tablet by mouth every 6 (six) hours as needed for Pain (scale 4-6). Indication s: chronic pain [facility] clonazePAM 2 mg tablet 04-12 00:00: 00 04-14 00:00 :00 No [id number] TAKE ONE (1) TABLET(S) BY MOUTH EVERY MORNING AND EVENING. [facility] ketorolac (TORADOL) injection 15 mg 04-08 19:00: 00 04-08 18:50 :00 No 15mg 15 mg, Intramuscu lar, ONCE NOW, 1 dose, On Jania 04/08/24 at 1400, Routine [facility] atorvastati n 20 mg tablet 5-14 00:00: 00 Yes [id number] 20mg Take 1 tablet by mouth in the morning. [facility] losartan 100 mg tablet 4-29 00:00: 00 Yes [id number] 100mg Take 1 tablet by mouth in the morning. [facility] albuterol 90 mcg/actuati on inhaler 03-18 00:00: 00 Yes [id number] INHALE 2 PUFFS BY MOUTH EVERY 4 HOURS NEEDED FOR WHEEZING [facility] lactulose 10 gram/15 mL solution 03-18 00:00: 00 Yes [id number] TAKE 15 ML BY MOUTH EVERY DAY NEEDED FOR CONSTIPATI ON [facility] potassium chloride 10 mEq CR tablet 03-15 00:00: 00 Yes [id number] 10meq Take 1 tablet by mouth in the morning. [facility] clonazePAM 2 mg tablet 03-15 00:00: 00 04-12 00:00 :00 No [id number] TAKE ONE (1) TABLET(S) BY MOUTH EVERY MORNING AND EVENING. [facility] HYDROcodone -acetaminop hen 10-325 mg tablet 03-15 00:00: 00 04-12 00:00 :00 No [id number] 1{tbl} Take 1 tablet by mouth every 6 (six) hours as needed for Pain (scale 4-6). Indication s: chronic pain [facility] HYDROcodone -acetaminop hen 10-325 mg tablet 02-10 00:00: 00 03-15 00:00 :00 No [id number] 1{tbl} Take 1 tablet by mouth every 6 (six) hours as needed for Pain (scale 4-6). Indication s: chronic pain [facility] pantoprazol e 20 mg EC tablet 01-14 00:00: 00 Yes [id number] 20mg Take 1 tablet by mouth in the morning. [facility] venlafaxine 75 mg tablet 01-14 00:00: 00 08-06 00:00 :00 No [id number] 75mg Take 1 tablet by mouth in the morning and 1 tablet in the evening. [facility] traZODone 50 mg tablet 01-14 00:00: 00 04-12 00:00 :00 No [id number] 25mg Take 0.5 tablets by mouth at bedtime. [facility] HYDROcodone -acetaminop hen 10-325 mg tablet 01-14 00:00: 00 02-10 00:00 :00 No [id number] 1{tbl} Take 1 tablet by mouth every 6 (six) hours as needed for Pain (scale 4-6). Indication s: chronic pain [facility] lactulose 10 gram/15 mL solution 12-15 00:00: 00 03-18 00:00 :00 No [id number] TAKE 15 ML BY MOUTH EVERY DAY NEEDED FOR CONSTIPATI ON [facility] HYDROcodone -acetaminop hen 10-325 mg tablet 12-15 00:00: 00 01-14 00:00 :00 No [id number] 1{tbl} Take 1 tablet by mouth every 6 (six) hours as needed for Pain (scale 4-6). Indication s: chronic pain [facility] hydroCHLORO thiazide 25 mg tablet 2022-11 00:00: 00 Yes [id number] 25mg Take 1 tablet by mouth in the morning. [facility] amLODIPine (NORVASC) 10 mg tablet 2022-11 00:00: 00 04-12 00:00 :00 No [id number] 10mg Take 1 tablet by mouth in the morning. [facility] atorvastati n 20 mg tablet 2022-11 00:00: 00 04-06 00:00 :00 No [id number] 20mg Take 1 tablet by mouth in the morning. [facility] HYDROcodone -acetaminop hen 10-325 mg tablet 2022-11 00:00: 00 12-15 00:00 :00 No [id number] 1{tbl} Take 1 tablet by mouth every 6 (six) hours as needed for Pain (scale 4-6). Indication s: chronic pain [facility] HYDROcodone -acetaminop hen 10-325 mg tablet 2022-11- 00:00: 00 11-12 00:00 :00 No [id number] 1{tbl} Take 1 tablet by mouth every 6 (six) hours as needed for Pain (scale 4-6). Indication s: chronic pain [facility] HYDROcodone -acetaminop hen 10-325 mg tablet 2022-11 00:00: 00 10-10 00:00 :00 No [id number] 1{tbl} Take 1 tablet by mouth every 6 (six) hours as needed for Pain (scale 4-6). Indication s: chronic pain [facility] budesonide- formoteroL (SYMBICORT) 160-4.5 mcg/actuati on inhaler 2022-11 00:00: 00 Yes [id number] 2{puff} Inhale 2 Puffs in the morning and 2 Puffs in the evening. [facility] albuterol 90 mcg/actuati on inhaler 2022-11 00:00: 00 03-18 00:00 :00 No [id number] INHALE 2 PUFFS BY MOUTH EVERY 4 HOURS NEEDED FOR WHEEZING [facility] clonazePAM 2 mg tablet 2022-11 00:00: 00 03-15 00:00 :00 No [id number] 2mg Take 1 tablet by mouth every morning and evening. [facility] hydroCHLORO thiazide 25 mg tablet 2022-11 00:00: 00 11-12 00:00 :00 No [id number] 25mg Take 1 tablet by mouth in the morning. [facility] atorvastati n 20 mg tablet 2022-11 00:00: 00 11-12 00:00 :00 No [id number] 20mg Take 1 tablet by mouth in the morning. [facility] amLODIPine (NORVASC) 10 mg tablet 2022-11 00:00: 00 11-12 00:00 :00 No [id number] 10mg Take 1 tablet by mouth in the morning. [facility] LACTULOSE 10 gram/15 mL solution 2022-11 0-19 00:00: 00 12-15 00:00 :00 No [id number] TAKE 15 ML BY MOUTH EVERY DAY NEEDED FOR CONSTIPATI ON [facility] HYDROcodone -acetaminop hen 10-325 mg tablet 2022-11 018 00:00: 00 10-09 00:00 :00 No [id number] 1{tbl} Take 1 tablet by mouth every 6 (six) hours as needed for Pain (scale 4-6). Indication s: chronic pain [facility] hydroCHLORO thiazide 25 mg tablet 2022-1116 00:00: 00 10-02 00:00 :00 No [id number] 25mg Take 1 tablet by mouth in the morning. [facility] HYDROcodone -acetaminop hen 10-325 mg tablet 2022-11 0 00:00: 00 09-10 00:00 :00 No [id number] 1{tbl} Take 1 tablet by mouth every 6 (six) hours as needed for Pain (scale 4-6). Indication s: chronic pain [facility] CLONAZEPAM 2 mg tablet 08-18 00:00: 00 10-02 00:00 :00 No [id number] 2mg TAKE 1 TABLET BY MOUTH IN THE MORNING AND IN THE EVENING [facility] atorvastati n 20 mg tablet 08-11 00:00: 00 10-02 00:00 :00 No [id number] 20mg Take 1 tablet by mouth in the morning. [facility] azithromyci n 250 mg tablet 08-06 00:00: 00 Yes [id number] 250mg Take 1 tablet by mouth in the morning. Take 500 mg day 1, then 250 mg days 2 to 5. [facility] venlafaxine 75 mg tablet 08-06 00:00: 00 01-14 00:00 :00 No [id number] 75mg Take 1 tablet by mouth in the morning and 1 tablet in the evening. [facility] HYDROcodone -acetaminop hen 10-325 mg tablet 08-06 00:00: 00 09-04 00:00 :00 No [id number] 1{tbl} Take 1 tablet by mouth every 6 (six) hours as needed for Pain (scale 4-6). Indication s: chronic pain [facility] HYDROcodone -acetaminop hen 10-325 mg tablet 07-09 00:00: 00 08-06 00:00 :00 No [id number] 1{tbl} Take 1 tablet by mouth every 6 (six) hours as needed for Pain (scale 4-6). Indication s: chronic pain [facility] SYMBICORT 160-4.5 mcg/actuati on inhaler 06-24 00:00: 00 10-02 00:00 :00 No [id number] 2{puff} Inhale 2 Puffs in the morning and 2 Puffs in the evening. [facility] budesonide- formoteroL (SYMBICORT) 160-4.5 mcg/actuati on inhaler 06-20 00:00: 00 06-24 00:00 :00 No [id number] 2{puff} Inhale 2 Puffs in the morning and 2 Puffs in the evening. [facility] losartan 100 mg tablet 06-09 00:00: 00 03-20 00:00 :00 No [id number] 100mg Take 1 tablet by mouth in the morning. [facility] pantoprazol e 20 mg EC tablet 06-09 00:00: 00 01-14 00:00 :00 No [id number] 20mg Take 1 tablet by mouth in the morning. [facility] albuterol 90 mcg/actuati on inhaler 06-09 00:00: 00 10-02 00:00 :00 No [id number] INHALE 2 PUFFS BY MOUTH EVERY 4 HOURS NEEDED FOR WHEEZING [facility] lactulose 10 gram/15 mL solution 06-09 00:00: 00 09-11 00:00 :00 No [id number] TAKE 15 ML BY MOUTH EVERY DAY NEEDED FOR CONSTIPATI ON [facility] hydroCHLORO thiazide 25 mg tablet 06-09 00:00: 00 09-08 00:00 :00 No [id number] 25mg Take 1 tablet by mouth in the morning. [facility] venlafaxine 75 mg tablet 06-09 00:00: 00 08-06 00:00 :00 No [id number] 75mg Take 1 tablet by mouth in the morning and 1 tablet in the evening. [facility] HYDROcodone -acetaminop hen 10-325 mg tablet 06-09 00:00: 00 07-09 00:00 :00 No [id number] 1{tbl} Take 1 tablet by mouth every 6 (six) hours as needed for Pain (scale 4-6). Indication s: chronic pain [facility] CLONAZEPAM 2 mg tablet 05-28 00:00: 00 08-18 00:00 :00 No [id number] NEED ESCRIPT TAKE ONE TABLET BY MOUTH TWICE DAILY @ 9AM & 5PM [facility] triamcinolo ne acetonide (KENALOG) injection 40 mg 05-22 16:15: 00 05-22 15:05 :00 No [id number] 40mg [facility] fluconazole (DIFLUCAN) 150 mg tablet 04-19 00:00: 00 Yes [id number] Take one tablet; wait 72 hours and take 2nd tablet; wait 72 hours and take 3rd tablet. [facility] cefdinir 300 mg capsule 04-15 00:00: 00 04-26 04:59 :00 No [id number] 600mg Take 2 capsules by mouth in the morning for 10 days. [facility] dexAMETHaso ne (DECADRON) tablet 8 mg 04-10 03:15: 00 04-10 02:36 :00 No 8mg 8 mg, Oral, ONCE NOW, 1 dose, On Fri04/09/23 at 2215, Routine [facility] meloxicam 7.5 mg tablet 04-08 00:00: 00 Yes [id number] 7.5mg Take 1 tablet by mouth in the morning. [facility] HYDROcodone -acetaminop hen 10-325 mg tablet 03-26 00:00: 00 06-09 00:00 :00 No [id number] 1{tbl} Take 1 tablet by mouth every 6 (six) hours as needed for Pain (scale 4-6). Indication s: chronic pain [facility] albuterol 90 mcg/actuati on inhaler 03-26 00:00: 00 06-09 00:00 :00 No [id number] INHALE 2 PUFFS BY MOUTH EVERY 4 HOURS NEEDED FOR WHEEZING [facility] lactulose 10 gram/15 mL solution 03-26 00:00: 00 06-09 00:00 :00 No [id number] TAKE 15 ML BY MOUTH EVERY DAY NEEDED FOR CONSTIPATI ON [facility] sulfamethox azole-trime thoprim (BACTRIM DS) 800-160 mg per tablet 03-05 00:00: 00 Yes [id number] 1{tbl} Take 1 tablet by mouth in the morning and 1 tablet in the evening. [facility] HYDROcodone -acetaminop hen 10-325 mg tablet 03-05 00:00: 00 03-26 00:00 :00 No [id number] 1{tbl} Take 1 tablet by mouth every 6 (six) hours as needed for Pain (scale 4-6). Indication s: chronic pain [facility] clonazePAM 2 mg tablet 03-04 00:00: 00 05-28 00:00 :00 No [id number] 2mg Take 1 tablet by mouth in the morning and 1 tablet in the evening. [facility] albuterol 90 mcg/actuati on inhaler 03-04 00:00: 00 03-26 00:00 :00 No [id number] INHALE 2 PUFFS BY MOUTH EVERY 4 HOURS NEEDED FOR WHEEZING [facility] triamcinolo ne acetonide (KENALOG) injection 40 mg 02-27 05:00: 00 02-27 16:59 :00 No [id number] 40mg [facility] hydroCHLORO thiazide 25 mg tablet 02-24 00:00: 00 06-09 00:00 :00 No [id number] 25mg Take 1 tablet by mouth in the morning. [facility] ketorolac (TORADOL) injection 30 mg 02-19 18:15: 00 02-19 19:08 :00 No 30mg 30 mg, Intramuscu lar, ONCE, 1 dose, On Fri02/19/23 at 1315, Routine [facility] dexamethaso ne (DECADRON PHOSPHATE) injection 10 mg 02-19 18:15: 00 02-19 18:15 :00 No 10mg 10 mg, Oral, ONCE, 1 dose, On Fri02/19/23 at 1315, Routine [facility] methocarbam oL (ROBAXIN) tablet 1,500 mg 02-19 17:15: 00 02-19 19:07 :00 No 1500mg 1,500 mg, Oral, ONCE, 1 dose, On Fri02/19/23 at 1215, [facility] ketorolac 10 mg tablet 02-19 00:00: 00 04-08 00:00 :00 No [id number] 10mg Take 1 tablet by mouth every 6 (six) hours as needed for Pain (scale 7-10). [facility] methocarbam oL 500 mg tablet 02-19 00:00: 00 02-27 04:59 :00 No [id number] 500mg Take 1 tablet by mouth 4 (four) times daily for 7 days. [facility] ibuprofen 800 mg tablet 02-03 00:00: 00 Yes [id number] 800mg Take 1 tablet by mouth every 6 (six) hours as needed for Pain (scale 4-6). [facility] HYDROcodone -acetaminop hen 10-325 mg tablet 02-03 00:00: 00 03-05 00:00 :00 No [id number] 1{tbl} Take 1 tablet by mouth every 6 (six) hours as needed for Pain (scale 4-6). Indication s: chronic pain [facility] LOSARTAN 100 mg tablet 01-28 00:00: 06-09 00:00 :00 No [id number] 100mg TAKE 1 TABLET BY MOUTH IN THE MORNING [facility] pantoprazol e 20 mg EC tablet 12-31 00:00: 00 06-09 00:00 :00 No [id number] 20mg Take 1 tablet by mouth in the morning. [facility] albuterol 90 mcg/actuati on inhaler 12-30 00:00: 03-04 00:00 :00 No [id number] INHALE 2 PUFFS BY MOUTH EVERY 4 HOURS NEEDED FOR WHEEZING [facility] HYDROcodone -acetaminop hen 10-325 mg tablet 12-30 00:00: 00 02-03 00:00 :00 No [id number] 1{tbl} Take 1 tablet by mouth every 6 (six) hours as needed for Pain (scale 4-6). Indication s: chronic pain [facility] ibuprofen 800 mg tablet 12-30 00:00: 00 02-03 00:00 :00 No [id number] 800mg Take 1 tablet by mouth every 6 (six) hours as needed for Pain (scale 4-6). [facility] pantoprazol e 20 mg EC tablet 12-30 00:00: 00 12-31 00:00 :00 No [id number] 20mg Take 1 tablet by mouth in the morning. [facility] albuterol 90 mcg/actuati on inhaler 1- 00:00: 00 12-30 00:00 :00 No [id number] INHALE 2 PUFFS BY MOUTH EVERY 4 HOURS NEEDED FOR WHEEZING [facility] HYDROcodone -acetaminop hen 10-325 mg tablet 1- 00:00: 00 12-30 00:00 :00 No [id number] 1{tbl} Take 1 tablet by mouth every 6 (six) hours as needed for Pain (scale 4-6) for up to 7 days. Indication s: chronic pain [facility] amLODIPine (NORVASC) 10 mg tablet 2021-11 00:00: 00 10-02 00:00 :00 No [id number] 10mg Take 1 tablet by mouth in the morning. [facility] lactulose 10 gram/15 mL solution 2021-11 00:00: 03-26 00:00 :00 No TAKE 15 ML BY MOUTH EVERY DAY NEEDED FOR CONSTIPATI ON [facility] HYDROcodone -acetaminop hen 10-325 mg tablet 2021-11 00:00: 11-05 05:59 :00 No [id number] 1{tbl} Take 1 tablet by mouth every 6 (six) hours as needed for Pain (scale 4-6) for up to 7 days. Indication s: chronic pain [facility] amLODIPine (NORVASC) 5 mg tablet 2021-11 00:00: 00 10-30 00:00 :00 No [id number] 5mg Take 1 tablet by mouth in the morning. [facility] albuterol 90 mcg/actuati on inhaler 2021-11 00:00: 00 11-27 00:00 :00 No [id number] INHALE 2 PUFFS BY MOUTH EVERY 4 HOURS NEEDED FOR WHEEZING [facility] HYDROcodone -acetaminop hen 7.5-325 mg per tablet 2021-11 00:00: 00 10-03 05:59 :00 No [id number] 1{tbl} Take 1 tablet by mouth every 6 (six) hours as needed for Pain for up to 7 days. Indication s: chronic pain [facility] venlafaxine 75 mg tablet 2021-11 0-10 00:00: 00 06-09 00:00 :00 No [id number] 75mg Take 1 tablet by mouth in the morning and 1 tablet in the evening. [facility] clonazePAM 2 mg tablet 2021-11 0-10 00:00: 00 03-04 00:00 :00 No [id number] 2mg Take 1 tablet by mouth in the morning and 1 tablet in the evening. [facility] pantoprazol e 20 mg EC tablet 2021-11 00:00: 00 12-30 00:00 :00 No [id number] 20mg Take 1 tablet by mouth in the morning. [facility] albuterol 90 mcg/actuati on inhaler 2021-11 00:00: 00 09-25 00:00 :00 No [id number] INHALE 2 PUFFS BY MOUTH EVERY 4 HOURS NEEDED FOR WHEEZING [facility] HYDROcodone -acetaminop hen 7.5-325 mg per tablet 2021-11 00:00: 00 09-10 04:59 :00 No [id number] 1{tbl} Take 1 tablet by mouth every 8 (eight) hours as needed for Pain for up to 7 days. Indication s: chronic pain [facility] NaCl 0.9% (NS) IV infusion 1,000 mL 2021-11 17:45: 00 09-01 18:21 :00 No 1000mL at 999 mL/hr, Intravenou s, ONCE, 1 dose, On Fri09/01/22 at 1245, [facility] cloNIDine (CATAPRES) tablet 0.1 mg 2021-11 17:30: 00 09-01 17:21 :00 No .1mg 0.1 mg, Oral, ONCE, 1 dose, On 09/01/22 at 1230, STAT [facility] LORazepam (ATIVAN) tablet 2 mg 2021-11 16:30: 00 09-01 17:11 :00 No 2mg 2 mg, Oral, ONCE, 1 dose, On 09/01/22 at 1130, [facility] iopamidol (ISOVUE 370-500 mL) injection 80 mL 2021-11 15:45: 00 09-01 16:00 :00 No [id number] 80mL 80 mL, Intravenou s, ONCE, 1 dose, On 09/01/22 at 1100, Routine [facility] ondansetron (ZOFRAN (PF)) injection 4 mg 2021-11 14:30: 00 09-01 14:21 :00 No 4mg 4 mg, Slow IV Push, ONCE, 1 dose, On 09/01/22 at 0930, [facility] morpHINE (4 mg/mL) injection 4 mg 2021-11 009 14:30: 00 09-01 14:22 :00 No 4mg 4 mg, Slow IV Push, ONCE, 1 dose, On 09/01/22 at 0930, STAT [facility] HYDROcodone -acetaminop hen 7.5-325 mg per tablet 08-07 00:00: 00 08-15 04:59 :00 No 2745 1{tbl} Take 1 tablet by mouth every 6 (six) hours as needed for Pain for up to 7 days. Indication s: chronic pain [facility] budesonide/ formoterol fumarate (SYMBICORT INHALE) 07-03 15:39: 24 07-03 00:00 :00 No Inhale. [facility] temazepam 15 mg capsule 07-03 15:36: 31 07-03 00:00 :00 No 15mg Take 15 mg by mouth at bedtime as needed for Insomnia. [facility] Venlafaxine 225 mg TR24 07-03 15:34: 06 07-03 00:00 :00 No 75mg Take 75 mg by mouth every morning. [facility] losartan 100 mg tablet 07-03 00:00: 00 01-28 00:00 :00 No [id number] 100mg Take 1 tablet by mouth in the morning. [facility] venlafaxine 75 mg tablet 07-03 00:00: 00 09-02 00:00 :00 No [id number] 75mg Take 1 tablet by mouth in the morning and 1 tablet in the evening. [facility] pantoprazol e 20 mg EC tablet 07-03 00:00: 00 09-02 00:00 :00 No [id number] 20mg Take 1 tablet by mouth in the morning. [facility] clonazePAM 2 mg tablet 2022-0 8-10 00:00: 00 09-02 00:00 :00 No [id number] 2mg Take 1 tablet by mouth in the morning and 1 tablet in the evening. [facility] albuterol 90 mcg/actuati on inhaler 810 00:00: 00 09-02 00:00 :00 No [id number] INHALE 2 PUFFS BY MOUTH EVERY 4 HOURS NEEDED FOR WHEEZING [facility] HYDROcodone -acetaminop hen 7.5-325 mg per tablet 810 00:00: 00 07-11 04:59 :00 No [id number] 1{tbl} Take 1 tablet by mouth every 8 (eight) hours as needed for Pain for up to 7 days. Indication s: [facility] AL[facility] m[facility]/actuati on inhaler 5-17 00:00: 00 07-03 00:00 :00 No [id number] INHALE 2 PUFFS BY MOUTH EVERY 4 HOURS NEEDED FOR WHEEZING [facility] acetaminoph en-codeine (TYLENOL-CO DEINE #3) 300-30 mg tablet 4-21 00:00: 00 07-03 00:00 :00 No [id number] 1{tbl} Take 1 tablet by mouth every 4 (four) hours as needed for Pain (scale 4-6) or Pain (scale 7-10). Indication s: acute pain [facility] traMADoL 50 mg tablet 4-14 00:00: 00 07-03 00:00 :00 No [id number] 50mg Take 1 tablet by mouth every 4 (four) hours as needed for Pain (scale 7-10). Indication s: acute pain [facility] pentazocine -naloxone 50-0.5 mg tablet 4-11 00:00: 00 07-03 00:00 :00 No [id number] 1{tbl} Take 1 tablet by mouth every 4 (four) hours as needed for Pain. Indication s: acute pain [facility] diclofenac 75 mg EC tablet 2020-11 2-16 00:00: 12-30 00:00 :00 No [id number] 75mg Take 1 tablet by mouth 2 (two) times daily with meals. [facility] traMADoL 50 mg tablet 2020-11 2-09 00:00: 00 07-03 00:00 :00 No [id number] 50mg Take 1 tablet by mouth every 4 (four) hours as needed for Pain (scale 7-10). Indication s: acute pain [facility] METOPROLOL SUCCINATE XL 25 mg 24 hr tablet 2020-1130 00:00: 00 07-03 00:00 :00 No TAKE 1 TABLET BY MOUTH TWICE DAILY [facility] budesonide- formoteroL (SYMBICORT) 160-4.5 mcg/actuati on inhaler 2020-11 0 00:00: 00 07-03 00:00 :00 No [id number] 2{puff} Inhale 2 Puffs 2 (two) times daily. [facility] pantoprazol e 20 mg EC tablet 2020-11 00:00: 00 07-03 00:00 :00 No [id number] 20mg Take 1 tablet by mouth daily. [facility] losartan 100 mg tablet 2020-11 00:00: 00 07-03 00:00 :00 No [id number] 100mg Take 1 tablet by mouth daily. [facility] Diclofenac Sodium (VOLTAREN) 1 % gel 2020-11 0 00:00: 00 07-03 00:00 :00 No [id number] Apply to area(s) 2 (two) times daily. [facility] OLANZapine 10 mg tablet 9-29 00:00: 00 07-03 00:00 :00 No 10mg Take 10 mg by mouth every morning. [facility] ARIPiprazol e 2 mg tablet 6-12 00:00: 00 07-03 00:00 :00 No [facility] clonazePAM 2 mg tablet 5-05 00:00: 00 07-03 00:00 :00 No [facility] Vital Signs Vital Name Observation Time Observation Value Comments S irma Systolic blood pressure 2024-09-08 18:44:00 133 mm[Hg] [facility] Diastolic blood pressure 2024-09-08 18:44:00 85 mm[Hg] [facility] Heart rate 2024-09-08 18:44:00 88 /min [facility] Body height 2024-09-08 18:44:00 154.9 cm [facility] Body weight 2024-09-08 18:44:00 74.844 kg [facility] BMI 2024-09-08 18:44:00 31.18 kg/m2 [facility] Oxygen saturation in Arterial blood by Pulse oximetry 2024-09-08 18:44:00 98 /min [facility] Systolic blood pressure 2024-08-27 14:21:00 137 mm[Hg] [facility] Diastolic blood pressure 2024-08-27 14:21:00 82 mm[Hg] [facility] Heart rate 2024-08-27 14:21:00 94 /min [facility] Respiratory rate 2024-08-27 14:21:00 18 /min [facility] Body height 2024-08-27 14:21:00 154.9 cm [facility] Body weight 2024-08-27 14:21:00 73.029 kg [facility] BMI 2024-08-27 14:21:00 30.42 kg/m2 [facility] Oxygen saturation in Arterial blood by Pulse oximetry 2024-08-27 14:21:00 95 /min [facility] Systolic blood pressure 2024-08-22 02:32:00 137 mm[Hg] [facility] Diastolic blood pressure 2024-08-22 02:32:00 85 mm[Hg] [facility] Heart rate 2024-08-22 02:32:00 91 /min [facility] Body temperature 2024-08-22 02:32:00 37.28 [facility] Respiratory rate 2024-08-22 02:32:00 16 /min [facility] Oxygen saturation in Arterial blood by Pulse oximetry 2024-08-22 02:32:00 96 /min [facility] Body height 2024-08-22 00:10:00 154.9 cm [facility] Body weight 2024-08-22 00:10:00 68.04 kg [facility] BMI 2024-08-22 00:10:00 28.34 kg/m2 [facility] Systolic blood pressure 2024-08-16 14:21:00 143 mm[Hg] [facility] Diastolic blood pressure 2024-08-16 14:21:00 85 mm[Hg] [facility] Heart rate 2024-08-16 14:20:00 95 /min [facility] Body height 2024-08-16 14:20:00 154.9 cm [facility] Body weight 2024-08-16 14:20:00 78.019 kg [facility] BMI 2024-08-16 14:20:00 32.50 kg/m2 [facility] Oxygen saturation in Arterial blood by Pulse oximetry 2024-08-16 14:20:00 96 /min [facility] Systolic blood pressure 2024-08-09 14:37:00 134 mm[Hg] [facility] Diastolic blood pressure 2024-08-09 14:37:00 83 mm[Hg] [facility] Heart rate 2024-08-09 14:37:00 83 /min [facility] Oxygen saturation in Arterial blood by Pulse oximetry 2024-08-09 14:37:00 98 /min [facility] Respiratory rate 2024-08-09 14:35:00 16 /min [facility] Body height 2024-08-09 14:35:00 154.9 cm [facility] Body weight 2024-08-09 14:35:00 74.617 kg [facility] BMI 2024-08-09 14:35:00 31.08 kg/m2 [facility] Systolic blood pressure 2024-07-15 13:43:00 137 mm[Hg] [facility] Diastolic blood pressure 2024-07-15 13:43:00 86 mm[Hg] [facility] Heart rate 2024-07-15 13:42:00 92 /min [facility] Body height 2024-07-15 13:42:00 154.9 cm [facility] Body weight 2024-07-15 13:42:00 74.481 kg [facility] BMI 2024-07-15 13:42:00 31.03 kg/m2 [facility] Oxygen saturation in Arterial blood by Pulse oximetry 2024-07-15 13:42:00 100 /min [facility] Systolic blood pressure 2024-06-18 14:26:00 132 mm[Hg] [facility] Diastolic blood pressure 2024-06-18 14:26:00 86 mm[Hg] [facility] Heart rate 2024-06-18 14:25:00 102 /min [facility] Body height 2024-06-18 14:25:00 154.9 cm [facility] Body weight 2024-06-18 14:25:00 71.215 kg [facility] BMI 2024-06-18 14:25:00 29.66 kg/m2 [facility] Systolic blood pressure 2024-06-14 14:33:00 137 mm[Hg] [facility] Diastolic blood pressure 2024-06-14 14:33:00 84 mm[Hg] [facility] Heart rate 2024-06-14 14:33:00 90 /min [facility] Body height 2024-06-14 14:33:00 154.9 cm [facility] Body weight 2024-06-14 14:33:00 72.167 kg [facility] BMI 2024-06-14 14:33:00 30.06 kg/m2 [facility] Oxygen saturation in Arterial blood by Pulse oximetry 2024-06-14 14:33:00 95 /min [facility] Systolic blood pressure 2024-05-11 15:38:00 129 mm[Hg] [facility] Diastolic blood pressure 2024-05-11 15:38:00 85 mm[Hg] [facility] Heart rate 2024-05-11 15:38:00 75 /min [facility] 2024-05-11 15:38:00 20 /min [facility] Body height 2024-05-11 15:38:00 154.9 cm [facility] Body weight 2024-05-11 15:38:00 70.761 kg [facility] BMI 2024-05-11 15:38:00 29.48 kg/m2 [facility] Oxygen saturation in Arterial blood by Pulse oximetry 2024-05-11 15:38:00 98 /min [facility] Systolic blood pressure 2024-04-28 17:32:00 150 mm[Hg] [facility] Diastolic blood pressure 2024-04-28 17:32:00 90 mm[Hg] [facility] Heart rate 2024-04-28 17:18:00 92 /min [facility] Body height 2024-04-28 17:18:00 154.9 cm [facility] Body weight 2024-04-28 17:18:00 73.165 kg [facility] BMI 2024-04-28 17:18:00 30.48 kg/m2 [facility] Oxygen saturation in Arterial blood by Pulse oximetry 2024-04-28 17:18:00 98 /min [facility] Systolic blood pressure 2024-04-12 17:06:00 139 mm[Hg] [facility] Diastolic blood pressure 2024-04-12 17:06:00 89 mm[Hg] [facility] Heart rate 2024-04-12 17:06:00 77 /min [facility] Body height 2024-04-12 17:06:00 154.9 cm [facility] Body weight 2024-04-12 17:06:00 75.615 kg [facility] BMI 2024-04-12 17:06:00 31.50 kg/m2 [facility] Oxygen saturation in Arterial blood by Pulse oximetry 2024-04-12 17:06:00 98 /min [facility] Systolic blood pressure 2024-04-08 18:21:30 114 mm[Hg] [facility] Diastolic blood pressure 2024-04-08 18:21:30 75 mm[Hg] [facility] Heart rate 2024-04-08 18:21:30 67 /min [facility] Respiratory rate 2024-04-08 18:21:30 16 /min [facility] Oxygen saturation in Arterial blood by Pulse oximetry 2024-04-08 18:21:30 95 /min [facility] Body temperature 2024-04-08 16:32:00 37 [facility] Body height 2024-04-08 16:32:00 154.9 cm [facility] Body weight 2024-04-08 16:32:00 75.751 kg [facility] BMI 2024-04-08 16:32:00 31.55 kg/m2 [facility] Systolic blood pressure 2024-03-18 15:45:00 155 mm[Hg] [facility] Diastolic blood pressure 2024-03-18 15:45:00 93 mm[Hg] [facility] Heart rate 2024-03-18 15:44:00 100 /min [facility] Body height 2024-03-18 15:44:00 154.9 cm [facility] Body weight 2024-03-18 15:44:00 78.472 kg [facility] BMI 2024-03-18 15:44:00 32.69 kg/m2 [facility] Oxygen saturation in Arterial blood by Pulse oximetry 2024-03-18 15:44:00 97 /min [facility] Heart rate 2024-03-15 18:12:00 100 /min [facility] Body height 2024-03-15 18:12:00 154.9 cm [facility] Body weight 2024-03-15 18:12:00 77.474 kg [facility] BMI 2024-03-15 18:12:00 32.27 kg/m2 [facility] Oxygen saturation in Arterial blood by Pulse oximetry 2024-03-15 18:12:00 97 /min [facility] Systolic blood pressure 2024-03-15 18:12:00 140 mm[Hg] [facility] Diastolic blood pressure 2024-03-15 18:12:00 80 mm[Hg] [facility] Systolic blood pressure 2024-01-14 16:06:00 137 mm[Hg] [facility] Diastolic blood pressure 2024-01-14 16:06:00 85 mm[Hg] [facility] Heart rate 2024-01-14 16:05:00 92 /min [facility] Body height 2024-01-14 16:05:00 154.9 cm [facility] Body weight 2024-01-14 16:05:00 86.093 kg [facility] BMI 2024-01-14 16:05:00 35.86 kg/m2 [facility] Oxygen saturation in Arterial blood by Pulse oximetry 2024-01-14 16:05:00 94 /min [facility] Systolic blood pressure 2023-12-15 15:19:00 139 mm[Hg] [facility] Diastolic blood pressure 2023-12-15 15:19:00 89 mm[Hg] [facility] Heart rate 2023-12-15 15:19:00 102 /min [facility] Respiratory rate 2023-12-15 15:19:00 18 /min [facility] Body height 2023-12-15 15:19:00 154.9 cm [facility] Body weight 2023-12-15 15:19:00 86.501 kg [facility] BMI 2023-12-15 15:19:00 36.03 kg/m2 [facility] Oxygen saturation in Arterial blood by Pulse oximetry 2023-12-15 15:19:00 94 /min [facility] Systolic blood pressure 2023-11-12 15:54:00 124 mm[Hg] [facility] Diastolic blood pressure 2023-11-12 15:54:00 86 mm[Hg] [facility] Heart rate 2023-11-12 15:54:00 96 /min [facility] Body height 2023-11-12 15:54:00 157.5 cm [facility] Body weight 2023-11-12 15:54:00 84.641 kg [facility] BMI 2023-11-12 15:54:00 34.13 kg/m2 [facility] Oxygen saturation in Arterial blood by Pulse oximetry 2023-11-12 15:54:00 96 /min [facility] Systolic blood pressure 2023-10-02 18:23:00 163 mm[Hg] [facility] Diastolic blood pressure 2023-10-02 18:23:00 100 mm[Hg] [facility] Heart rate 2023-10-02 18:22:00 96 /min [facility] Respiratory rate 2023-10-02 18:22:00 18 /min [facility] Body height 2023-10-02 18:22:00 154.9 cm [facility] Body weight 2023-10-02 18:22:00 90.81 kg [facility] BMI 2023-10-02 18:22:00 37.83 kg/m2 [facility] Oxygen saturation in Arterial blood by Pulse oximetry 2023-10-02 18:22:00 97 /min [facility] Systolic blood pressure 2023-09-29 08:11:00 136 mm[Hg] [facility] Diastolic blood pressure 2023-09-29 08:11:00 90 mm[Hg] [facility] Heart rate 2023-09-29 08:11:00 87 /min [facility] Body temperature 2023-09-29 08:11:00 36.72 [facility] Respiratory rate 2023-09-29 08:11:00 20 /min [facility] Body height 2023-09-29 08:11:00 154.9 cm [facility] Body weight 2023-09-29 08:11:00 87.091 kg [facility] BMI 2023-09-29 08:11:00 36.28 kg/m2 [facility] Oxygen saturation in Arterial blood by Pulse oximetry 2023-09-29 08:11:00 94 /min [facility] Systolic blood pressure 2023-09-04 15:33:00 132 mm[Hg] [facility] Diastolic blood pressure 2023-09-04 15:33:00 77 mm[Hg] [facility] Heart rate 2023-09-04 15:33:00 94 /min [facility] Body temperature 2023-09-04 15:33:00 36.28 [facility] Body height 2023-09-04 15:33:00 154.9 cm [facility] Body weight 2023-09-04 15:33:00 87.317 kg [facility] BMI 2023-09-04 15:33:00 36.37 kg/m2 [facility] Oxygen saturation in Arterial blood by Pulse oximetry 2023-09-04 15:33:00 95 /min [facility] Systolic blood pressure 2023-08-11 15:56:00 131 mm[Hg] [facility] Diastolic blood pressure 2023-08-11 15:56:00 86 mm[Hg] [facility] Heart rate 2023-08-11 15:56:00 101 /min [facility] Body temperature 2023-08-11 15:56:00 35.56 [facility] Respiratory rate 2023-08-11 15:56:00 19 /min [facility] Body height 2023-08-11 15:56:00 154.9 [facility] 2023-08-11 15:56:00 88.95 kg [facility] BMI 2023-08-11 15:56:00 37.05 kg/m2 [facility] Oxygen saturation in Arterial blood by Pulse oximetry 2023-08-11 15:56:00 93 /min [facility] Systolic blood pressure 2023-08-06 15:14:00 132 mm[Hg] [facility] Diastolic blood pressure 2023-08-06 15:14:00 78 mm[Hg] [facility] Heart rate 2023-08-06 15:13:00 91 /min [facility] Respiratory rate 2023-08-06 15:13:00 18 /min [facility] Body height 2023-08-06 15:13:00 154.9 cm [facility] Body weight 2023-08-06 15:13:00 87.862 kg [facility] BMI 2023-08-06 15:13:00 36.60 kg/m2 [facility] Oxygen saturation in Arterial blood by Pulse oximetry 2023-08-06 15:13:00 96 /min [facility] Systolic blood pressure 2023-07-09 20:14:00 139 mm[Hg] [facility] Diastolic blood pressure 2023-07-09 20:14:00 85 mm[Hg] [facility] Heart rate 2023-07-09 20:14:00 96 /min [facility] Body height 2023-07-09 20:14:00 154.9 cm [facility] Body weight 2023-07-09 20:14:00 80.74 kg [facility] BMI 2023-07-09 20:14:00 33.63 kg/m2 [facility] Oxygen saturation in Arterial blood by Pulse oximetry 2023-07-09 20:14:00 97 /min [facility] Systolic blood pressure 2023-06-20 14:45:00 114 mm[Hg] [facility] Diastolic blood pressure 2023-06-20 14:45:00 75 mm[Hg] [facility] Heart rate 2023-06-20 14:45:00 99 /min [facility] Respiratory rate 2023-06-20 14:45:00 18 /min [facility] Body height 2023-06-20 14:45:00 154.9 cm [facility] Body weight 2023-06-20 14:45:00 81.364 kg [facility] BMI 2023-06-20 14:45:00 33.89 kg/m2 [facility] Oxygen saturation in Arterial blood by Pulse oximetry 2023-06-20 14:45:00 90 /min [facility] Systolic blood pressure 2023-06-09 17:45:00 136 mm[Hg] [facility] Diastolic blood pressure 2023-06-09 17:45:00 80 mm[Hg] [facility] Heart rate 2023-06-09 17:45:00 108 /min [facility] Respiratory rate 2023-06-09 17:45:00 18 /min [facility] Body height 2023-06-09 17:45:00 154.9 cm [facility] Body weight 2023-06-09 17:45:00 79.425 kg [facility] BMI 2023-06-09 17:45:00 33.08 kg/m2 [facility] Oxygen saturation in Arterial blood by Pulse oximetry 2023-06-09 17:45:00 96 /min [facility] Systolic blood pressure 2023-04-17 15:28:00 112 mm[Hg] [facility] Diastolic blood pressure 2023-04-17 15:28:00 78 mm[Hg] [facility] Heart rate 2023-04-17 15:28:00 87 /min [facility] Body temperature 2023-04-17 15:28:00 37.06 [facility] Respiratory rate 2023-04-17 15:28:00 20 /min [facility] Body height 2023-04-17 15:28:00 154.9 cm [facility] Body weight 2023-04-17 15:28:00 77.202 kg [facility] BMI 2023-04-17 15:28:00 32.16 kg/m2 [facility] Oxygen saturation in Arterial blood by Pulse oximetry 2023-04-17 15:28:00 96 /min [facility] Systolic blood pressure 2023-04-15 19:23:00 145 mm[Hg] [facility] Diastolic blood pressure 2023-04-15 19:23:00 93 mm[Hg] [facility] Heart rate 2023-04-15 19:17:00 89 /min [facility] Body temperature 2023-04-15 19:17:00 37 [facility] Respiratory rate 2023-04-15 19:17:00 16 /min [facility] Body height 2023-04-15 19:17:00 154.9 cm [facility] Body weight 2023-04-15 19:17:00 78.019 kg [facility] BMI 2023-04-15 19:17:00 32.50 kg/m2 [facility] Oxygen saturation in Arterial blood by Pulse oximetry 2023-04-15 19:17:00 96 /min [facility] Systolic blood pressure 2023-04-13 22:55:00 132 mm[Hg] [facility] Diastolic blood pressure 2023-04-13 22:55:00 88 mm[Hg] [facility] Heart rate 2023-04-13 22:55:00 81 /min [facility] Body temperature 2023-04-13 22:55:00 37.22 [facility] Respiratory rate 2023-04-13 22:55:00 14 /min [facility] Body height 2023-04-13 22:55:00 154.9 cm [facility] Body weight 2023-04-13 22:55:00 81.647 kg [facility] BMI 2023-04-13 22:55:00 34.01 kg/m2 [facility] Oxygen saturation in Arterial blood by Pulse oximetry 2023-04-13 22:55:00 99 /min [facility] Systolic blood pressure 2023-04-10 02:05:00 139 mm[Hg] [facility] Diastolic blood pressure 2023-04-10 02:05:00 73 mm[Hg] [facility] Heart rate 2023-04-10 02:05:00 87 /min [facility] Body temperature 2023-04-10 02:05:00 37.06 [facility] Respiratory rate 2023-04-10 02:05:00 20 /min [facility] Body height 2023-04-10 02:05:00 154.9 cm [facility] weight 2023-04-10 02:05:00 81.647 kg [facility] BMI 2023-04-10 02:05:00 34.01 kg/m2 [facility] Oxygen saturation in Arterial blood by Pulse oximetry 2023-04-10 02:05:00 98 /min [facility] Body height 2023-04-08 20:56:00 154.9 cm [facility] Body weight 2023-04-08 20:56:00 75.297 kg [facility] BMI 2023-04-08 20:56:00 31.37 kg/m2 [facility] Systolic blood pressure 2023-03-26 20:08:00 139 mm[Hg] [facility] Diastolic blood pressure 2023-03-26 20:08:00 72 mm[Hg] [facility] Heart rate 2023-03-26 19:39:00 92 /min [facility] Body height 2023-03-26 19:39:00 154.9 cm [facility] Body weight 2023-03-26 19:39:00 75.66 kg [facility] BMI 2023-03-26 19:39:00 31.52 kg/m2 [facility] Oxygen saturation in Arterial blood by Pulse oximetry 2023-03-26 19:39:00 95 /min [facility] Body weight 2023-02-27 15:35:00 80.74 kg [facility] BMI 2023-02-27 15:35:00 33.63 kg/m2 [facility] Systolic blood pressure 2023-02-24 16:36:00 132 mm[Hg] [facility] Diastolic blood pressure 2023-02-24 16:36:00 85 mm[Hg] [facility] Heart rate 2023-02-24 16:36:00 84 /min [facility] Oxygen saturation in Arterial blood by Pulse oximetry 2023-02-24 16:36:00 96 /min [facility] Body temperature 2023-02-24 16:35:00 37.56 [facility] Body height 2023-02-24 16:35:00 154.9 cm [facility] Body weight 2023-02-24 16:35:00 80.967 kg [facility] BMI 2023-02-24 16:35:00 33.73 kg/m2 [facility] Systolic blood pressure 2023-02-19 15:32:00 153 mm[Hg] [facility] Diastolic blood pressure 2023-02-19 15:32:00 100 mm[Hg] [facility] Heart rate 2023-02-19 15:32:00 87 /min [facility] Body temperature 2023-02-19 15:32:00 37.11 [facility] Respiratory rate 2023-02-19 15:32:00 18 /min [facility] Body weight 2023-02-19 15:32:00 82.555 kg [facility] BMI 2023-02-19 15:32:00 34.39 kg/m2 [facility] Oxygen saturation in Arterial blood by Pulse oximetry 2023-02-19 15:32:00 99 /min [facility] Systolic blood pressure 2023-02-03 19:38:00 155 mm[Hg] [facility] Diastolic blood pressure 2023-02-03 19:38:00 87 mm[Hg] [facility] Heart rate 2023-02-03 19:38:00 96 /min [facility] Body height 2023-02-03 19:37:00 154.9 cm [facility] Body weight 2023-02-03 19:37:00 82.827 kg [facility] BMI 2023-02-03 19:37:00 34.50 kg/m2 [facility] Oxygen saturation in Arterial blood by Pulse oximetry 2023-02-03 19:37:00 97 /min [facility] Systolic blood pressure 2022-12-30 18:30:00 135 mm[Hg] [facility] Diastolic blood pressure 2022-12-30 18:30:00 85 mm[Hg] [facility] Heart rate 2022-12-30 18:30:00 90 /min [facility] Body height 2022-12-30 18:30:00 154.9 cm [facility] Body weight 2022-12-30 18:30:00 79.878 kg [facility] BMI 2022-12-30 18:30:00 33.27 kg/m2 [facility] Oxygen saturation in Arterial blood by Pulse oximetry 2022-12-30 18:30:00 96 /min [facility] Systolic blood pressure 2022-11-27 19:49:00 144 mm[Hg] [facility] Diastolic blood pressure 2022-11-27 19:49:00 84 mm[Hg] [facility] Heart rate 2022-11-27 19:45:00 91 /min [facility] Body height 2022-11-27 19:45:00 154.9 cm [facility] Body weight 2022-11-27 19:45:00 80.423 kg [facility] BMI 2022-11-27 19:45:00 33.50 kg/m2 [facility] Oxygen saturation in Arterial blood by Pulse oximetry 2022-11-27 19:45:00 98 /min [facility] Systolic blood pressure 2022-10-30 16:59:00 165 mm[Hg] [facility] Diastolic blood pressure 2022-10-30 16:59:00 95 mm[Hg] [facility] Heart rate 2022-10-30 16:59:00 73 /min [facility] Oxygen saturation in Arterial blood by Pulse oximetry 2022-10-30 16:59:00 97 /min [facility] Body temperature 2022-10-30 16:57:00 36.39 [facility] Respiratory rate 2022-10-30 16:57:00 16 /min [facility] Body height 2022-10-30 16:57:00 154.9 cm [facility] Body weight 2022-10-30 16:57:00 80.377 kg [facility] BMI 2022-10-30 16:57:00 33.48 kg/m2 [facility] Systolic blood pressure 2022-10-28 19:15:00 205 mm[Hg] [facility] Diastolic blood pressure 2022-10-28 19:15:00 103 mm[Hg] [facility] Heart rate 2022-10-28 19:14:00 89 /min [facility] Body height 2022-10-28 19:14:00 154.9 cm [facility] Body weight 2022-10-28 19:14:00 84.369 kg [facility] BMI 2022-10-28 19:14:00 35.14 kg/m2 [facility] Oxygen saturation in Arterial blood by Pulse oximetry 2022-10-28 19:14:00 96 /min [facility] Systolic blood pressure 2022-09-25 18:22:00 178 mm[Hg] [facility] Diastolic blood pressure 2022-09-25 18:22:00 92 mm[Hg] [facility] Heart rate 2022-09-25 18:13:00 92 /min [facility] rs[facility] of [facility] Body height 2022-09-25 18:13:00 154.9 cm Univ ers[facility] of [facility] Body weight 2022-09-25 18:13:00 81.647 kg [facility] BMI 2022-09-25 18:13:00 34.01 kg/m2 [facility] Oxygen saturation in Arterial blood by Pulse oximetry 2022-09-25 18:13:00 97 /min [facility] Systolic blood pressure 2022-09-02 19:17:00 140 mm[Hg] [facility] Diastolic blood pressure 2022-09-02 19:17:00 80 mm[Hg] [facility] Heart rate 2022-09-02 19:17:00 106 /min [facility] Body weight 2022-09-02 19:17:00 73.483 kg [facility] BMI 2022-09-02 19:17:00 30.61 kg/m2 [facility] Oxygen saturation in Arterial blood by Pulse oximetry 2022-09-02 19:17:00 97 /min [facility] Systolic blood pressure 2022-09-01 18:15:00 142 mm[Hg] [facility] Diastolic blood pressure 2022-09-01 18:15:00 71 mm[Hg] [facility] Heart rate 2022-09-01 18:15:00 93 /min [facility] Respiratory rate 2022-09-01 18:15:00 19 /min [facility] Oxygen saturation in Arterial blood by Pulse oximetry 2022-09-01 18:15:00 98 /min [facility] Body temperature 2022-09-01 13:47:00 36.22 [facility] Body weight 2022-09-01 13:47:00 83.008 kg [facility] BMI 2022-09-01 13:47:00 34.58 kg/m2 [facility] Systolic blood pressure 2022-07-03 20:15:00 156 mm[Hg] [facility] Diastolic blood pressure 2022-07-03 20:15:00 92 mm[Hg] [facility] Heart rate 2022-07-03 20:15:00 96 /min [facility] Body weight 2022-07-03 20:15:00 83.28 kg [facility] BMI 2022-07-03 20:15:00 34.69 kg/m2 [facility] Oxygen saturation in Arterial blood by Pulse oximetry 2022-07-03 20:15:00 97 /min [facility] Systolic blood pressure 2024-09-08 20:13:00 152 mm[Hg] [facility] Diastolic blood pressure 2024-09-08 20:13:00 99 mm[Hg] [facility] Heart rate 2024-09-08 20:13:00 83 /min [facility] Body height 2024-09-08 20:13:00 154.9 cm [facility] Body weight 2024-09-08 20:13:00 75.796 kg [facility] BMI 2024-09-08 20:13:00 31.57 kg/m2 [facility] Oxygen saturation in Arterial blood by Pulse oximetry 2024-09-08 20:13:00 99 /min [facility] Systolic blood pressure 2024-08-27 14:21:00 137 mm[Hg] [facility] Diastolic blood pressure 2024-08-27 14:21:00 82 mm[Hg] [facility] Heart rate 2024-08-27 14:21:00 94 /min [facility] Respiratory rate 2024-08-27 14:21:00 18 /min [facility] Body height 2024-08-27 14:21:00 154.9 cm [facility] Body weight 2024-08-27 14:21:00 73.029 kg [facility] BMI 2024-08-27 14:21:00 30.42 kg/m2 [facility] Oxygen saturation in Arterial blood by Pulse oximetry 2024-08-27 14:21:00 95 /min [facility] Body temperature 2024-08-22 02:32:00 37.28 [facility] Procedures Procedure Date / Time Performed Performing Clinician Source XR KNEE 3 VW BILATERAL 2024-08-27 15:18:08 Amador Novoa [facility] XR KNEE 3 VW BILATERAL 2024-08-27 15:18:08 Amador Novoa [facility] XR ANKLE 3+ VW RIGHT 2024-08-27 15:17:56 Ynes Novoa [facility] XR ANKLE 3+ VW RIGHT 2024-08-27 15:17:56 Ynes Novoa [facility] TRANSTHORACIC ECHO (TTE) COMPLETE 2024-08-09 14:32:18 Mackenzie Beckwith [facility] TRANSTHORACIC ECHO (TTE) COMPLETE 2024-08-09 14:32:18 Mackenzie Beckwith [facility] GC & CHLAMYDIA AMPLIFIED ASSAY 2024-06-18 14:40:00 Dayton Calderon [facility] TRICHOMONAS AMPLIFIED ASSAY 2024-06-18 14:40:00 Dayton Calderon [facility] HOLTER MONITOR - 48 HOUR 2024-06-09 21:05:31 GarciaAngel [facility] XR LUMBAR SPINE 3 VW 2024-04-08 17:04:51 Richie Meza [facility] XR ELBOW <3 VW LEFT 2024-04-08 17:04:51 Dane Meza [facility] AUTHORIZATION FOR RELEASE OF PHI 2023-10-30 06:01:00 Doctor Unassigned, [place] [facility] CONSENT/REFUSAL FOR DIAGNOSIS AND TREATMENT 2023-09-29 08:23:02 Doctor Unassigned, [place] [facility] ASSIGNMENT OF BENEFITS 2023-09-29 08:22:17 Docto r Unassigned, [place] [facility] MEDICATION CORRESPONDENCE 2023-06-24 05:01:00 Do ctor Unassigned, [place] [facility] POCT URINALYSIS 2023-06-09 18:18:00 [facility] 2023-05-30 05:01:00 Doc tor Unassigned, [place] [facility] HCV ANTIBODY 2023-04-17 16:40:00 [facility]/2 [facility]-AB WITH REFLEX 2023-04-17 16:40:00 Adum, Carol Mcleod [facility] HIGH RISK HPV-THIN PREP 2023-04-17 16:00:00 Adum, Ju Mcleod [facility] PAP SMEAR-LIQUID BASED-CP 2023-04-17 16:00:00 Adum, Carol Mcleod [facility] LAB ONLY PAP SMEAR-LIQUID BASED 2023-04-17 16:00:00 Adum, Ellie Mcleod [facility] HIGH RISK HPV-THIN PREP 2023-04-17 16:00:00 Adum, Ju Mcleod [facility] PAP SMEAR-LIQUID BASED-CP 2023-04-17 16:00:00 Adum, Carol Mcleod [facility] POCT TEST 2023-04-17 00:00:00 AdumUniqueEllie L [facility] POCT URINALYSIS 2023-04-15 19:29:00 Levi Prosper De La [facility]re [facility] POCT TEST 2023-04-15 19:28:00 SalvadorBertha randmk rita [facility] ASSIGNMENT OF BENEFITS 2023-04-13 23:45:56 Docto r Unassigned, [place] [facility] URINALYSIS 2023-04-13 23:24:[address] [facility] CONSENT/REFUSAL FOR DIAGNOSIS AND TREATMENT 2023-04-13 22:45:01 Doctor Unassigned, [place] [facility] NOTICE OF PRIVACY PRACTICES 2023-04-10 01:57:37 Doctor Unassigned, [place] [facility] POCT URINALYSIS 2023-02-24 00:00:00 Nghia Menendez [facility] XR LUMBAR SPINE 3 VW 2023-02-19 17:37:06 Lydia Andrade [facility] XR KNEE 3 VW LEFT 2023-02-19 17:37:06 Quentin Andrade [facility] CONSENT/REFUSAL FOR DIAGNOSIS AND TREATMENT 2023-02-19 15:29:06 Doctor Unassigned, [place] [facility] PATIENT FINANCIAL POLICY 2023-02-03 18:57:26 Doctor Unassigned, [place] [facility] MEDICATION CORRESPONDENCE 2022-12-11 06:01:00 Do ctor Unassigned, [place] [facility] MEDICATION CORRESPONDENCE 2022-11-22 06:01:00 Do ctor Unassigned, [place] [facility] CONSENT/REFUSAL FOR DIAGNOSIS AND TREATMENT 2022-09-25 17:57:27 Doctor Unassigned, [place] [facility] EKG-12 LEAD 2022-09-01 18:23:52 Deidra Meek [facility] CT CHEST PULMONARY ANGIOGRAM 2022-09-01 15:45:19 Deidra Meek [facility] XR CHEST 1 VW 2022-09-01 14:40:31 Deidra Meek [facility] URINE DRUG (IMMUNOASSAY) - COMPREHENSIVE DRUG SCREEN W/O REFLEX 2022-09-01 14:23:00 Deidra Meek [facility] LIPASE 2022-09-01 14:22:00 Deidra Meek [facility] MAGNESIUM 2022-09-01 14:22:00 Deidra Meek [facility] TROPONIN I 2022-09-01 14:22:00 Deidra Meek [facility] THYROID STIMULATING HORMONE 2022-09-01 14:22:00 Deidra Meek [facility] COMP. METABOLIC PANEL (70824) 2022-09-01 14:22:00 Deidra Meek [facility] ETHANOL 2022-09-01 14:22:00 Deidra Meek [facility] CBC WITH DIFF 2022-09-01 14:22:00 Deidra Meek [facility] D-DIMER 2022-09-01 14:22:00 Deidra Meek [facility] URINALYSIS 2022-09-01 14:22:00 Deidra Meek [facility] N-TERMINAL PRO-BNP 2022-09-01 14:22:00 Deidra Meek [facility] COVID-19 (ID NOW RAPID TESTING) 2022-09-01 14:22:00 Deidra Meek [facility] Encounters Start Date/Time End Date/Time Encounter Type Admission Type Attending Clinicians Care Facility Care Department Encounter ID Source 2021-09-25 05:37:23 Emergency [facility] [id number] [facility] 2021-09-24 23:15:39 Emergency [facility] [id number] [facility] 2021-09-24 22:03:21 Emergency [facility] [id number] [facility] 2021-09-24 11:06:58 Emergency [facility] [id number] [facility] 2021-09-23 18:54:33 Emergency [facility] [id number] [facility] 2021-09-23 14:49:00 Emergency [facility] [id number] [facility] 2021-09-21 14:23:37 Emergency [facility] [id number] [facility] 2021-09-21 11:35:45 Emergency [facility] [id number] [facility] 2021-09-21 07:31:33 Emergency [facility] [id number] [facility] 2021-09-21 06:11:19 Emergency [facility] [id number] [facility] 2021-08-10 08:51:00 Inpatient [facility] [id number] 2021-08-10 08:51:00 Inpatient [facility] [id number] 2024-08-10 00:00:00 2024-09-11 18:23:08 [facility] 1.2.840.114 350.1.13.10 4.2.7.2.686 [id number] [facility] 2024-09-09 00:00:00 2024-09-09 09:52:27 Telephone Nghia Menendez [facility] 1.2.840.114 350.1.13.10 4.2.7.2.686 [id number] [facility] 2024-09-08 15:17:58 2024-09-08 23:59:00 Outpatient R CHONG BAILEY CRAIG [facility] [id number] [facility] 2024-09-08 15:00:00 2024-09-08 15:29:11 Office Visit Chong Bailey 1.2.840.1 [id number] 3.104.2.7 .3.546918 .8 [id number] [facility] 2024-09-08 13:15:00 2024-09-08 13:54:37 Office Visit Nghia Menendez 1.2.840.1 [id number] 3.104.2.7 .3.799720 .8 [id number] [facility] 2024-09-08 00:00:00 2024-09-08 00:00:00 Travel 1.2.840.1 [id number] 3.104.2.7 .3.178022 .8 1.2.840.114 350.1.13.10 4.2.7.3.698 [id number] [facility] 2024-09-06 00:00:00 2024-09-06 13:02:01 Telephone Nghia Menendez 1.2.840.1 [id number] 3.104.2.7 .3.459890 .8 [id number] [facility] 2024-09-06 00:00:00 2024-09-06 12:27:54 Telephone Nghia Menendez 1.2.840.1 [id number] 3.104.2.7 .3.327294 .8 [id number] [facility] 2024-09-01 00:00:00 2024-09-06 08:08:54 Refill Nghia Menendez 1.2.840.1 [id number] 3.104.2.7 .3.925743 .8 [id number] [facility] 2024-09-03 00:00:00 2024-09-06 08:06:46 Telephone Nghia Menendez 1.2.840.1 [id number] 3.104.2.7 .3.819416 .8 [id number] [facility] 2024-09-02 09:00:00 2024-09-02 09:00:00 Outpatient MARYCHUY CRUZ SELENA [facility] [id number] [facility] 2024-09-01 00:00:00 2024-09-01 10:20:56 Telephone Nghia Menendez 1.2.840.1 [id number] 3.104.2.7 .3.558077 .8 [id number] [facility] 2024-09-01 00:00:00 2024-09-01 10:09:22 Telephone Nghia Menendez 1.2.840.1 [id number] 3.104.2.7 .3.486831 .8 [id number] [facility] 2024-08-28 00:00:00 2024-08-30 09:11:29 Refill Nghia Menendez 1.2.840.1 [id number] 3.104.2.7 .3.505548 .8 [id number] [facility] 2024-08-27 00:00:00 2024-08-28 12:12:18 Telephone Nghia Menendez 1.2.840.1 [id number] 3.104.2.7 .3.488308 .8 [id number] [facility] 2024-08-28 00:00:00 2024-08-28 00:00:00 Telephone Yue Hussein 1.2.840.1 [id number] 3.104.2.7 .3.864020 .8 [id number] [facility] 2024-08-27 09:40:05 2024-08-27 23:59:00 Hospital Encounter Puneet Novoa 1.2.840.1 [id number] 3.104.2.7 .3.322096 .8 [id number] [facility] 2024-08-27 09:40:04 2024-08-27 23:59:00 Hospital Encounter Puneet Novoa 1.2.840.1 [id number] 3.104.2.7 .3.581442 .8 [id number] [facility] 2024-08-27 09:20:00 2024-08-27 10:01:01 Outpatient R PUNEET NOVOA [facility] [id number] [facility] 2024-08-27 09:20:00 2024-08-27 10:01:01 Urgent Care Unknown, Attending Puneet Novoa 1.2.840.1 31585.1.1 3.104.2.7 .3.196000 .8 [id number] [facility] 2024-08-27 00:00:00 2024-08-27 00:00:00 Travel 1.2.840.1 [id number] 3.104.2.7 .3.053662 .8 1.2.840.114 350.1.13.10 4.2.7.3.698 084.8 [id number] [facility] 2024-08-25 15:30:00 2024-08-25 16:00:00 Office Visit Chong Bailey Selena 1.2.840.1 [id number] 3.104.2.7 .3.537224 .8 [id number] [facility] 2024-08-25 15:30:00 2024-08-25 15:30:00 Outpatient R CHONG BAILEY [facility] [id number] [facility] 2024-08-25 00:00:00 2024-08-25 00:00:00 Travel 1.2.840.1 [id number] 3.104.2.7 .3.054670 .8 1.2.840.114 350.1.13.10 4.2.7.3.698 084.8 [id number] [facility] 2024-08-21 00:00:00 2024-08-23 10:14:42 Nghia Jha 1.2.840.1 [id number] 3.104.2.7 .3.308985 .8 [id number] [facility] 2024-08-21 00:00:00 2024-08-23 09:22:51 Telephone Nghia Menendez 1.2.840.1 [id number] 3.104.2.7 .3.644534 .8 [id number] [facility] 2024-08-21 19:12:00 2024-08-21 21:53:00 Emergency Radha Flores 1.2.840.1 [id number] 3.104.2.7 .3.814937 .8 [id number] [facility] 2024-08-21 18:20:00 2024-08-21 18:44:41 Outpatient R PUNEET NOVOA [facility] [id number] [facility] 2024-08-21 18:20:00 2024-08-21 18:44:41 Outpatient R PUNEET NOVOA [email or web address] ERT [id number] [facility] 2024-08-21 18:20:00 2024-08-21 18:44:41 Nurse Visit Unknown, Attending Puneet Novoa Nurse, [facility] 1.2.840.1 87483.1.1 3.104.2.7 .3.553507 .8 [id number] [facility] 2024-08-21 00:00:00 2024-08-21 18:33:24 Nurse Triage Daniela Germain 1.2.840.1 22620.1.1 3.104.2.7 .3.515135 .8 [id number] [facility] 2024-08-21 00:00:00 2024-08-21 00:00:00 Travel 1.2.840.1 02828.1.1 3.104.2.7 .3.582234 .8 1.2.840.114 350.1.13.10 4.2.7.3.698 084.8 [id number] [facility] 2024-08-16 09:45:00 2024-08-16 09:45:00 Office Visit Nghia Menendez 1.2.840.1 87175.1.1 3.104.2.7 .3.255152 .8 [id number] [facility] 2024-08-16 09:45:00 2024-08-16 09:28:55 Outpatient R MENENDEZGWEN MILLANONY [facility] [id number] [facility] 2024-08-16 00:00:00 2024-08-16 00:00:00 Travel 1.2.840.1 98164.1.1 3.104.2.7 .3.487202 .8 1.2.840.114 350.1.13.10 4.2.7.3.698 084.8 [id number] [facility] 2024-08-09 08:49:29 2024-08-09 23:59:00 Hospital Encounter Mackenzie Beckwith 1.2.840.1 86592.1.1 3.104.2.7 .3.194330 .8 [id number] [facility] 2024-08-09 10:00:00 2024-08-09 11:44:09 Outpatient R MACKENZIE BECKWITH [facility] [id number] [facility] 2024-08-09 10:00:00 2024-08-09 11:44:09 Office Visit Mackenzie Beckwith 1.2.840.1 10601.1.1 3.104.2.7 .3.783000 .8 [id number] [facility] 2024-08-09 00:00:00 2024-08-09 00:00:00 Travel 1.2.840.1 48824.1.1 3.104.2.7 .3.648088 .8 1.2.840.114 350.1.13.10 4.2.7.3.698 084.8 [id number] [facility] 2024-08-06 00:00:00 2024-08-06 09:25:21 Refill Nghia Menendez 1.2.840.1 27125.1.1 3.104.2.7 .3.263748 .8 [id number] [facility] 2024-06-18 00:00:00 2024-07-24 18:24:15 Patient Secure Msg Doctor Unassigned, [place] 1.2.840.1 92983.1.1 3.104.2.7 .3.895088 .8 [id number] [facility] 2024-07-21 00:00:00 2024-07-21 14:21:15 Letter (Out) Nghia Menendez 1.2.840.1 04182.1.1 3.104.2.7 .3.014367 .8 [id number] [facility] 2024-07-21 00:00:00 2024-07-21 13:43:40 Telephone Nghia Menendez 1.2.840.1 55381.1.1 3.104.2.7 .3.051086 .8 [id number] [facility] 2024-07-15 08:45:00 2024-07-15 13:32:32 Office Visit Nghia Menendez 1.2.840.1 97967.1.1 3.104.2.7 .3.053377 .8 [id number] [facility] 2024-07-15 08:45:00 2024-07-15 08:45:00 Outpatient NGHIA MENDES [facility] [id number] [facility] 2024-07-15 08:30:00 2024-07-15 08:30:00 Outpatient NGHIA MENDES [facility] [id number] [facility] 2024-07-15 00:00:00 2024-07-15 00:00:00 Travel 1.2.840.1 99249.1.1 3.104.2.7 .3.399408 .8 1.2.840.114 350.1.13.10 4.2.7.3.698 084.8 [id number] [facility] 2024-07-07 12:30:00 2024-07-07 12:30:00 Outpatient Amador HOGANTAVONShani [facility] [id number] [facility] 2024-05-19 00:00:00 2024-06-19 18:18:46 Patient Secure Msg Doctor Unassigned, [place] [email or web address] [place] 1.2.840.114 350.1.13.10 4.2.7.2.686 [id number] 019 [id number] [facility] 2024-06-18 09:00:00 2024-06-18 09:41:49 Outpatient DAYTON DU [facility] [id number] [facility] 2024-06-18 09:00:00 2024-06-18 09:41:49 Office Visit Dayton Calderon 1.2.840.1 82601.1.1 3.104.2.7 .3.388565 .8 [id number] [facility] 2024-06-18 00:00:00 2024-06-18 00:00:00 Travel 1.2.840.1 38158.1.1 3.104.2.7 .3.582843 .8 1.2.840.114 350.1.13.10 4.2.7.3.698 084.8 [id number] [facility] 2024-06-14 09:30:00 2024-06-14 09:55:27 Outpatient NGHIA MENDES [facility] [id number] [facility] 2024-06-14 09:30:00 2024-06-14 09:55:27 Office Visit Nghia Menendez 1.2.840.1 88385.1.1 3.104.2.7 .3.286265 .8 [id number] [facility] 2024-06-14 00:00:00 2024-06-14 00:00:00 Travel 1.2.840.1 25358.1.1 3.104.2.7 .3.361716 .8 1.2.840.114 350.1.13.10 4.2.7.3.698 084.8 [id number] [facility] 2024-06-11 15:00:00 2024-06-11 15:00:00 Outpatient R [facility] [id number] [facility] 2024-06-09 14:53:47 2024-06-09 23:59:00 Outpatient R JEANMARIE GARCIA [facility] [id number] [facility] 2024-06-09 14:53:47 2024-06-09 23:59:00 Hospital Encounter Jeanmarie Garcia 1.2.840.1 12424.1.1 3.104.2.7 .3.861891 .8 [id number] [facility] 2024-06-09 00:00:00 2024-06-09 00:00:00 Travel 1.2.840.1 46796.1.1 3.104.2.7 .3.786202 .8 1.2.840.114 350.1.13.10 4.2.7.3.698 084.8 [id number] [facility] 2024-06-08 00:00:00 2024-06-08 14:38:05 Telephone Nghia Menendez 1.2.840.1 69421.1.1 3.104.2.7 .3.412529 .8 [id number] [facility] 2024-05-19 00:00:00 2024-05-19 12:56:49 Letter (Out) [facility] 1.2.840.114 350.1.13.10 4.2.7.2.686 [id number] 019 [id number] [facility] 2024-05-13 00:00:00 2024-05-13 15:50:05 Telephone Nghia Menendez [facility] 1..840.114 350.1.13.10 4.2.7.2.686 [id number] 044 [id number] [facility] 2024-05-12 00:00:00 2024-05-13 07:20:18 Telephone Nghia Menendez [facility] 1.2.840.114 350.1.13.10 4.2.7.2.686 [id number] 044 [id number] [facility] 2024-05-11 10:00:00 2024-05-11 11:12:46 Outpatient R [facility] [id number] [facility] 2024-05-11 10:00:00 2024-05-11 11:12:46 Office Visit Jose [facility] NAL BUILDING 1.840.114 350.1.13.10 4.2.7.2.686 [id number] 059 [id number] [facility] 2024-04-28 12:15:00 2024-04-28 12:46:28 Outpatient R SHON NGHIA [facility] [id number] [facility] 2024-04-28 12:15:00 2024-04-28 12:30:00 Office Visit [facility], [facility] 1..840.114 350.1.13.10 4.2.7.2.686 [id number] 044 [id number] [facility] 2024-04-12 00:00:00 2024-04-14 06:18:02 Telephone Nghia Menendez [facility] 1.2.840.114 350.1.13.10 4.2.7.2.686 [id number] 044 [id number] [facility] 2024-04-12 00:00:00 2024-04-13 06:45:07 Refill Menendez, [facility] JERALD?[facility] 1.2840.114 350.1.13.10 4.2.7.2.686 [id number] 044 [id number] [facility] 2024-04-12 12:30:00 2024-04-12 12:35:13 Outpatient R NGHIA MENENDEZ [facility] [id number] [facility] 2024-04-12 12:30:00 2024-04-12 12:35:13 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, [facility] [facility] 1.2840.114 350.1.13.10 4.2.7.2.686 [id number] [facility] 2024-04-12 12:15:00 2024-04-12 12:30:00 [facility] 1.2840.114 350.1.13.10 4.2.7.2.686 [id number] 044 [id number] [facility] 2024-04-08 11:40:00 2024-04-08 13:59:00 Emergency X GURU MEZA [facility] [[email or web address]] ERT [id number] [facility] 2024-04-08 11:40:00 2024-04-08 13:59:00 Emergency MezaGuru [facility] 1.2840.114 350.1.13.10 4.2.7.2.686 [id number] 084 [id number] [facility] 2024-04-02 00:00:00 2024-04-06 10:07:05 Telephone Shon [facility] JERALD?[facility] 1.2840.114 350.1.13.10 4.2.7.2.686 [id number] 044 [id number] [facility] 2024-03-20 00:00:00 2024-03-20 00:00:[address] 1.2.840.114 350.1.13.10 4.2.7.2.686 [id number] 044 [id number] [facility] 2024-03-18 10:00:00 2024-03-18 10:15:00 Office Visit Nghia Menendez [facility] 1.2.840.114 350.1.13.10 4.2.7.2.686 [id number] 044 [id number] [facility] 2024-03-18 10:00:00 2024-03-18 10:00:00 Outpatient R NGHIA MENENDEZ [facility] [id number] [facility] 2024-03-16 00:00:00 2024-03-16 00:00:00 Telephone Nghia Menendez [facility] 1..840.114 350.1.13.10 4.2.7.2.686 [id number] 044 [id number] [facility] 2024-03-15 12:30:00 2024-03-15 13:19:21 Outpatient R GWEN MENENDEZONY [facility] [id number] [facility] 2024-03-15 12:30:00 2024-03-15 13:19:21 Office Visit Nghia Menendez [facility] 1..840.114 350.1.13.10 4.2.7.2.686 [id number] 044 [id number] [facility] 2024-03-15 08:45:00 2024-03-15 08:45:00 Outpatient R NGHIA MENENDEZ [facility] [id number] [facility] 2024-03-15 00:00:00 2024-03-15 00:00:00 Refill Nghia Menendez [facility] 1.2.840.114 350.1.13.10 4.2.7.2.686 [id number] 044 [id number] [facility] 2024-03-15 00:00:00 2024-03-15 00:00:00 [facility] 1.2.840.114 350.1.13.10 4.2.7.2.686 [id number] 044 [id number] [facility] 2024-03-13 00:00:00 2024-03-13 00:00:00 [facility] 1.2.840.114 350.1.13.10 4.2.7.2.686 [id number] 044 [id number] [facility] 2024-03-13 00:00:00 2024-03-13 00:00:00 [facility]ill [facility] 1.2.840.114 350.1.13.10 4.2.7.2.686 [id number] 044 [id number] [facility] 2024-02-11 00:00:00 2024-02-11 00:00:00 Telephone [facility] 1.2.840.114 350.1.13.10 4.2.7.2.686 [id number] 044 [id number] [facility] 2024-01-14 09:30:00 2024-01-14 10:15:26 [facility] Visit [facility] 1.2.840.114 350.1.13.10 4.2.7.2.686 [id number] 044 [id number] [facility] 2024-01-14 09:30:00 2024-01-14 09:30:00 Outpatient R NGHIA MENENDEZ [facility] [id number] [facility] 2023-12-15 09:30:00 2023-12-15 09:45:00 Office Visit Nghia Menendez [facility] 1..114 350.1.13.10 4.2.7.2.686 [id number] 044 [id number] [facility] 2023-12-15 09:30:00 2023-12-15 09:30:00 Outpatient NGHIA MENDES [facility] [id number] [facility] 2023-11-12 09:30:00 2023-11-12 09:45:00 Office [facility] 1.114 350.1.13.10 4.2.7.2.686 [id number] 044 [id number] [facility] 2023-11-12 09:30:00 2023-11-12 09:30:00 Outpatient NGHIA MENDES [facility] [id number] [facility] 2023-10-30 00:00:00 2023-10-30 00:00:00 Telephone [facility]gh[facility] 1.114 350.1.13.10 4.2.7.2.686 [id number] 044 [id number] [facility] 2023-10-30 00:00:00 2023-10-30 00:00:00 Orders Only Doctor Unassigned, [place] [facility] 1..114 350.1.13.10 4.2.7.2.686 [id number] 009 [id number] [facility] 2023-10-10 00:00:00 2023-10-10 00:00:00 Telephone Nghia Menendez [facility] 1.114 350.1.13.10 4.2.7.2.686 [id number] 044 [id number] [facility] 2023-10-09 00:00:00 2023-10-09 00:00:[address] [facility]NA [facility] 1.2.840.114 350.1.13.10 4.2.7.2.686 [id number] 044 [id number] [facility] 2023-10-09 00:00:00 2023-10-09 00:00:00 Refill [facility] 1.2.840.114 350.1.13.10 4.2.7.2.686 [id number] 044 [id number] [facility] 2023-10-06 00:00:00 2023-10-06 00:00:[address] [facility] 1.2840.114 350.1.13.10 4.2.7.2.686 [id number] 044 [id number] [facility] 2023-10-06 00:00:00 2023-10-06 00:00:[address] [facility] 1.2.840.114 350.1.13.10 4.2.7.2.686 [id number] 044 [id number] [facility] 2023-10-06 00:00:00 2023-10-06 00:00:[address] [facility] 1.2840.114 350.1.13.10 4.2.7.2.686 [id number] 044 [id number] [facility] 2023-10-02 12:45:00 2023-10-02 13:00:00 Office Visit Nghia Menendez [facility] 1.2.840.114 350.1.13.10 4.2.7.2.686 [id number] 044 [id number] [facility] 2023-10-02 12:45:00 2023-10-02 12:45:00 Outpatient NGHIA MENDES [facility] [id number] [facility] 2023-09-29 02:16:00 2023-09-29 07:39:00 Emergency X CHAY WEEKS [facility] [[email or web address]] ERT [id number] [facility] 2023-09-29 02:16:00 2023-09-29 07:39:00 Emergency Chay Weeks S [facility] 1.840.114 350.1.13.10 4.2.7.2.686 [id number] 084 [id number] [facility] 2023-09-19 09:00:00 2023-09-19 09:00:00 Outpatient ALTON VIDES SHIWAN [facility] [id number] [facility] 2023-09-17 10:00:00 2023-09-17 10:00:00 Outpatient Amador MENENDEZ NGHIA [facility] [id number] [facility] 2023-09-16 00:00:00 2023-09-16 00:00:00 Telephone Shon [facility] JERALD?[facility] 1.840.114 350.1.13.10 4.2.7.2.686 [id number] 044 [id number] [facility] 2023-09-15 00:00:00 2023-09-15 00:00:00 Telephone Shon [facility] JERALD?[facility] 1..840.114 350.1.13.10 4.2.7.2.686 [id number] 044 [id number] [facility] 2023-09-11 00:00:00 2023-09-11 00:00:00 Refill Shon [facility] JERALD?[facility] 1.840.114 350.1.13.10 4.2.7.2.686 [id number] 044 [id number] [facility] 2023-09-09 00:00:00 2023-09-09 00:00:00 Telephone Nghia Menendez [facility] 1..840.114 350.1.13.10 4.2.7.2.686 [id number] 044 [id number] [facility] 2023-09-08 00:00:00 2023-09-08 00:00:00 [facility] 1..840.114 350.1.13.10 4.2.7.2.686 [id number] 044 [id number] [facility] 2023-09-04 12:00:00 2023-09-04 12:00:00 Outpatient R NGHIA MENENDEZ [facility] [id number] [facility] 2023-09-04 12:00:00 2023-09-04 12:00:00 [facility] 1.2.840.114 350.1.13.10 4.2.7.2.686 [id number] 044 [id number] [facility] 2023-09-04 09:30:00 2023-09-04 09:30:00 Outpatient R NGHIA MENENDEZ [facility] [id number] [facility] 2023-09-04 00:00:00 2023-09-04 00:00:00 Telephone Shon [facility] 1.2.840.114 350.1.13.10 4.2.7.2.686 [id number] 044 [id number] [facility] 2023-08-20 10:00:00 2023-08-20 10:00:00 Outpatient R ELLIE DELUCA [facility] [id number] [facility] 2023-08-15 00:00:00 2023-08-15 00:00:00 [facility] 1.2.840.114 350.1.13.10 4.2.7.2.686 [id number] 044 [id number] [facility] 2023-08-11 11:00:00 2023-08-11 11:13:55 [facility] [id number] [facility] 2023-08-11 11:00:00 2023-08-11 11:13:55 [facility] 1.2.840.114 350.1.13.10 4.2.7.2.686 [id number] 059 [id number] [facility] 2023-08-08 08:00:00 2023-08-08 08:00:00 Outpatient R [facility] [id number] [facility] 2023-08-06 10:00:00 2023-08-06 10:27:52 Outpatient R NGHIA MENENDEZ [facility] [id number] [facility] 2023-08-06 10:00:00 2023-08-06 10:15:00 [facility] 1.2.840.114 350.1.13.10 4.2.7.2.686 [id number] 044 [id number] [facility] 2023-07-29 08:45:00 2023-07-29 08:45:00 Outpatient R YARI HORNE [facility] [id number] [facility] 2023-07-09 15:00:00 2023-07-09 15:25:34 Outpatient R NGHIA MENENDEZ [facility] [id number] [facility] 2023-07-09 15:00:00 2023-07-09 15:25:34 Office Visit ShonNghia [facility] 1.2840.114 350.1.13.10 4.2.7.2.686 [id number] 044 [id number] [facility] 2023-06-25 00:00:00 2023-06-25 00:00:00 Patient Secure Msg Doctor Unassigned, [place] [facility] 1.2840.114 350.1.13.10 4.2.7.2.686 [id number] 019 [id number] [facility] 2023-06-24 00:00:00 2023-06-24 00:00:00 Refill Alton Reyes [facility] 1.0.114 350.1.13.10 4.2.7.2.686 [id number] 085 [id number] [facility] 2023-06-24 00:00:00 2023-06-24 00:00:00 Orders Only Doctor Unassigned, [place] [facility] 1.0.114 350.1.13.10 4.2.7.2.686 [id number] [facility] 2023-06-20 10:00:00 2023-06-20 10:04:10 Outpatient R ALTON REYES SHIWAN [facility] [id number] [facility] 2023-06-20 10:00:00 2023-06-20 10:04:10 Office Visit Alton Reyes [facility] 1.840.114 350.1.13.10 4.2.7.2.686 [id number] 085 [id number] [facility] 2023-06-18 00:00:00 2023-06-18 00:00:00 Patient Secure Msg Doctor Unassigned, [place] [facility] BUILD[facility] 1.2840.114 350.1.13.10 4.2.7.2.686 [id number] [facility] 2023-06-16 00:00:00 2023-06-16 00:00:00 Telephone Shon Nghia [facility] 1.2840.114 350.1.13.10 4.2.7.2.686 [id number] 044 [id number] [facility] 2023-06-16 00:00:00 2023-06-16 00:00:00 Patient Secure Msg Doctor Unassigned, [place] [facility] 1.2840.114 350.1.13.10 4.2.7.2.686 [id number] [id number] [facility] 2023-06-10 00:00:00 2023-06-10 00:00:00 Telephone Shon Nghia [facility] 1.840.114 350.1.13.10 4.2.7.2.686 [id number] 044 [id number] [facility] 2023-06-10 00:00:00 2023-06-10 00:00:00 Telephone Shon Nghia [facility] 1.2.840.114 350.1.13.10 4.2.7.2.686 [id number] [id number] [facility] 2023-06-10 00:00:00 2023-06-10 00:00:00 Patient Secure Msg Doctor Unassigned, [place] [facility] 1.2840.114 350.1.13.10 4.2.7.2.686 [id number] 044 [id number] [facility] 2023-06-09 12:30:00 2023-06-09 13:25:02 Outpatient R NGHIA MENENDEZ [facility] [id number] [facility] 2023-06-09 12:30:00 2023-06-09 13:25:02 Office Visit Nghia Menendez [facility] 1.2.840.114 350.1.13.10 4.2.7.2.686 [id number] [id number] [facility] 2023-05-30 00:00:00 2023-05-30 00:00:00 Orders Only Doctor Unassigned, [place] [facility] 1.284.114 350.1.13.10 4.2.7.2.686 [id number] [facility] 2023-05-28 00:00:00 2023-05-28 00:00:00 Refill Nghia Menendez [facility] 1.840.114 350.1.13.10 4.2.7.2.686 [id number] 044 [id number] [facility] 2023-05-23 00:00:00 2023-05-23 00:00:00 Outpatient ELLIE BUENROSTRO [facility] [id number] [facility] 2023-05-07 00:00:00 2023-05-07 00:00:00 [facility] 1..840.114 350.1.13.10 4.2.7.2.686 [id number] [facility] 2023-04-23 00:00:00 2023-04-23 00:00:00 Outpatient MAMIE MOREJON [facility] [id number] [facility] 2023-04-19 00:00:00 2023-04-19 00:00:00 [facility] 1.2.840.114 350.1.13.10 4.2.7.2.686 [id number] [facility] 2023-04-17 11:30:00 2023-04-17 11:45:00 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 Visit 2, Adc Lab Ellie Deluca [facility] 1.2.840.114 350.1.13.10 4.2.7.2.686 [id number] [facility] 2023-04-17 10:00:00 2023-04-17 11:06:42 Outpatient R ELLIE DELUCA [facility] [id number] [facility] 2023-04-17 10:00:00 2023-04-17 11:06:42 Office Visit Ellie Deluca [facility] 1.2.840.114 350.1.13.10 4.2.7.2.686 [id number] [facility] 2023-04-16 00:00:00 2023-04-16 00:00:00 Patient Outreach Heather Saavedra [facility] 1..840.114 350.1.13.10 4.2.7.2.686 [id number] 044 [id number] [facility] 2023-04-16 00:00:00 2023-04-16 00:00:00 Telephone Nghia Menendez [facility] 1..840.114 350.1.13.10 4.2.7.2.686 [id number] [id number] [facility] 2023-04-15 14:20:00 2023-04-15 14:40:00 Urgent Care Prosper Sims Unknown, Attending [facility] 1.2840.114 350.1.13.10 4.2.7.2.686 [id number] [facility] 2023-04-15 14:20:00 2023-04-15 14:20:00 Outpatient R PROSPER SIMS [facility] [id number] [facility] 2023-04-13 17:56:00 2023-04-13 19:44:00 Emergency X DERECK JOHNSON [facility] [[email or web address] ERT [id number] [facility] 2023-04-13 17:56:00 2023-04-13 19:44:00 Emergency Dereck Johnson [facility] 1..840.114 350.1.13.10 4.2.7.2.686 [id number] [facility] 2023-04-09 21:07:00 2023-04-09 21:49:00 Emergency SONIA REYNA [facility] [[email or web address]] ERT [id number] [facility] 2023-04-09 21:07:00 2023-04-09 21:49:00 Emergency Sonia Pickard [facility] 1..840.114 350.1.13.10 4.2.7.2.686 [id number] [id number] [facility] 2023-04-09 00:00:00 2023-04-09 00:00:00 Telephone Nghia Menendez [facility] 1.2.840.114 350.1.13.10 4.2.7.2.686 [id number] [id number] [facility] 2023-04-08 16:05:00 2023-04-08 23:59:00 Outpatient R MAMIE BARBOZA [facility] [id number] [facility] 2023-04-08 15:45:00 2023-04-08 16:00:00 Office Visit Mamie Barboza [facility] 1.2.840.114 350.1.13.10 4.2.7.2.686 [id number] [facility] 2023-03-28 00:00:00 2023-03-28 00:00:00 Telephone Nghia Menendez [facility] N[facility] 1..840.114 350.1.13.10 4.2.7.2.686 [id number] [id number] [facility] 2023-03-28 00:00:00 2023-03-28 00:00:00 Telephone Nghia Menendez [facility] [facility] 1.840.114 350.1.13.10 4.2.7.2.686 [id number] 044 [id number] [facility] 2023-03-27 09:30:00 2023-03-27 09:30:00 Outpatient R NGHIA MENENDEZ [facility] [id number] [facility] 2023-03-26 15:00:00 2023-03-26 15:15:00 Office Visit Nghia Menendez [facility] 1.840.114 350.1.13.10 4.2.7.2.686 [id number] 044 [id number] [facility] 2023-03-26 15:00:00 2023-03-26 15:00:00 Outpatient R NGHIA MENENDEZ [facility] [id number] [facility] 2023-03-26 08:30:00 2023-03-26 08:30:00 Outpatient NGHIA MENDES [facility] [id number] [facility] 2023-03-20 07:30:00 2023-03-20 07:30:00 Outpatient R SHON NGHIA [facility] [id number] [facility] 2023-03-17 00:00:00 2023-03-17 00:00:00 Telephone Nghia Menendez [facility] 1.840.114 350.1.13.10 4.2.7.2.686 [id number] 044 [id number] [facility] 2023-03-05 00:00:00 2023-03-05 00:00:[address] 1.2.840.114 350.1.13.10 4.2.7.2.686 [id number] 044 [id number] [facility] 2023-03-05 00:00:00 2023-03-05 00:00:[address] [facility] 1.2840.114 350.1.13.10 4.2.7.2.686 [id number] 044 [id number] [facility] 2023-03-03 00:00:00 2023-03-03 00:00:[address] [facility] 1.2.840.114 350.1.13.10 4.2.7.2.686 [id number] 044 [id number] [facility] 2023-02-28 00:00:00 2023-02-28 00:00:00 Refill Shon [facility] 1.2.840.114 350.1.13.10 4.2.7.2.686 [id number] 044 [id number] [facility] 2023-02-27 10:30:00 2023-02-27 12:21:16 Outpatient R CHONG BAILEY [facility] [id number] [facility] 2023-02-27 10:30:00 2023-02-27 12:21:16 Office Visit Mamie [facility]boza [facility] 1.2.840.114 350.1.13.10 4.2.7.2.686 [id number] [facility] 2023-02-24 12:15:00 2023-02-24 12:15:00 Outpatient R NGHIA MENENDEZ [facility] [id number] [facility] 2023-02-24 11:30:00 2023-02-24 12:04:36 Outpatient NGHIA MENDES [facility] [id number] [facility] 2023-02-24 11:30:00 2023-02-24 12:04:36 Office Visit [facility] 1.840.114 350.1.13.10 4.2.7.2.686 [id number] 044 [id number] [facility] 2023-02-19 10:33:00 2023-02-19 14:10:00 Emergency X SANDRA ANDRADE [facility] [[email or web address] ERT [id number] [facility] 2023-02-19 10:33:00 2023-02-19 14:10:00 Emergency Sandra Andrade [facility] 1.840.114 350.1.13.10 4.2.7.2.686 [id number] 084 [id number] [facility] 2023-02-07 08:15:00 2023-02-07 08:30:00 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, Vipin Garland Shon [facility] 1.840.114 350.1.13.10 4.2.7.2.686 [id number] [facility] 2023-02-07 08:15:00 2023-02-07 08:15:00 Outpatient NGHIA MENDES [facility] [id number] [facility] 2023-02-04 09:45:00 2023-02-04 09:45:00 Outpatient GWEN MENDESONY [facility] [id number] [facility] 2023-02-03 14:00:00 2023-02-03 14:15:00 [facility] 1..840.114 350.1.13.10 4.2.7.2.686 [id number] 044 [id number] [facility] 2023-02-03 14:00:00 2023-02-03 14:00:00 Outpatient R MENENDEZNGHIA [facility] [id number] [facility] 2023-02-03 00:00:00 2023-02-03 00:00:00 Orders Only Doctor Unassigned, [place] [facility] 1.2840.114 350.1.13.10 4.2.7.2.686 [id number] [facility] 2023-01-28 00:00:00 2023-01-28 00:00:00 Refill Menendez [facility] 1.284.114 350.1.13.10 4.2.7.2.686 [id number] 044 [id number] [facility] 2023-01-02 00:00:00 2023-01-02 00:00:00 Telephone Gwen Menendezony [facility] 1.84.114 350.1.13.10 4.2.7.2.686 [id number] 044 [id number] [facility] 2022-12-31 00:00:00 2022-12-31 00:00:00 Refill Menendez [facility] 1.284.114 350.1.13.10 4.2.7.2.686 [id number] 044 [id number] [facility] 2022-12-30 12:30:00 2022-12-30 12:45:00 Office Visit Menendez [facility] 1.284.114 350.1.13.10 4.2.7.2.686 [id number] 044 [id number] [facility] 2022-12-30 12:30:00 2022-12-30 12:30:00 Outpatient R MENENDEZ NGHIA [facility] [id number] [facility] 2022-12-18 00:00:00 2022-12-18 00:00:00 Telephone Nghia Menendez [facility] 1..840.114 350.1.13.10 4.2.7.2.686 [id number] 044 [id number] [facility] 2022-12-11 00:00:00 2022-12-11 00:00:00 Orders Only Doctor Unassigned, [place] [facility] 1.840.114 350.1.13.10 4.2.7.2.686 [id number] [facility] 2022-12-10 15:00:00 2022-12-10 15:00:00 Outpatient MEAGHAN MOSELEY [facility] [id number] [facility] 2022-11-28 13:00:00 2022-11-28 13:00:00 Outpatient R SHON NGHIA [facility] [id number] [facility] 2022-11-27 13:45:00 2022-11-27 14:14:10 Outpatient Amador MENENDEZ, NGHIA [facility] [id number] [facility] 2022-11-27 13:45:00 2022-11-27 14:00:00 Office Visit [facility] 1.840.114 350.1.13.10 4.2.7.2.686 [id number] 044 [id number] [facility] 2022-11-25 00:00:00 2022-11-25 00:00:00 Telephone Nghia Menendez [facility] 1..840.114 350.1.13.10 4.2.7.2.686 [id number] 044 [id number] [facility] 2022-11-22 00:00:00 2022-11-22 00:00:00 Orders Only Doctor Unassigned, [place] [facility] 1..114 350.1.13.10 4.2.7.2.686 [id number] 009 [id number] [facility] 2022-11-12 00:00:00 2022-11-12 00:00:00 Outpatient R TANG [facility] [id number] [facility] 2022-10-30 10:20:00 2022-10-30 11:17:22 Outpatient R TANG [facility] [id number] [facility] 2022-10-30 10:20:00 2022-10-30 11:17:[address] [facility] NAL BUILDING 1.84.114 350.1.13.10 4.2.7.2.686 [id number] 059 [id number] [facility] 2022-10-28 13:15:00 2022-10-28 13:32:14 Outpatient R MENENDEZ NGHIA [facility] [id number] [facility] 2022-10-28 13:15:00 2022-10-28 13:30:00 [facility] 1.84.114 350.1.13.10 4.2.7.2.686 [id number] 044 [id number] [facility] 2022-10-01 00:00:00 2022-10-01 00:00:00 Telephone Heather Saavedra COUNT INCLUDES THE [facility] [place] 1.84.114 350.1.13.10 4.2.7.2.686 [id number] 044 [id number] [facility] 2022-09-26 00:00:00 2022-09-26 00:00:00 Patient Outreach Heather Saavedra [facility] 1.2.840.114 350.1.13.10 4.2.7.2.686 [id number] 044 [id number] [facility] 2022-09-25 13:00:00 2022-09-25 13:15:00 [facility] 1.2840.114 350.1.13.10 4.2.7.2.686 [id number] 044 [id number] [facility] 2022-09-25 13:00:00 2022-09-25 13:00:00 Outpatient R NGHIA MENENDEZ [facility] [id number] [facility] 2022-09-25 00:00:00 2022-09-25 00:00:00 Orders Only Doctor Unassigned, [place] [facility] 1.840.114 350.1.13.10 4.2.7.2.686 [id number] [id number] [facility] 2022-09-02 14:00:00 2022-09-02 14:26:56 Outpatient R NGHIA MENENDEZ [facility] [id number] [facility] 2022-09-02 14:00:00 2022-09-02 14:15:00 [facility] 1.84.114 350.1.13.10 4.2.7.2.686 [id number] 044 [id number] [facility] 2022-09-02 00:00:00 2022-09-02 00:00:00 [facility] 1.84.114 350.1.13.10 4.2.7.2.686 [id number] 044 [id number] [facility] 2022-09-01 08:47:00 2022-09-01 14:18:00 Emergency X DEIDRA MEEK [facility] [[email or web address] ERT [id number] [facility] 2022-09-01 08:47:00 2022-09-01 14:18:00 Emergency Deidra Meek [facility] 1..840.114 350.1.13.10 4.2.7.2.686 [id number] 084 [id number] [facility] 2022-08-21 15:00:00 2022-08-21 15:00:00 Outpatient RUTHIE THACKER [facility] [id number] [facility] 2022-08-06 00:00:00 2022-08-06 00:00:00 Telephone Shon [facility] 1.840.114 350..13.10 4.2.7.2.686 [id number] 044 [id number] [facility] 2022-07-03 15:15:00 2022-07-03 15:52:50 Outpatient NGHIA MENDES [facility] [id number] [facility] 2022-07-03 15:15:00 2022-07-03 15:30:00 Office Visit Shon [facility] 1..840.114 350.1.13.10 4.2.7.2.686 [id number] 044 [id number] [facility] 2022-07-03 15:15:00 2022-07-03 15:15:00 Outpatient R NGHIA MENENDEZ [facility] [id number] [facility] 2022-07-03 00:00:00 2022-07-03 00:00:00 Patient Secure Msg Doctor Unassigned, [place] [facility] 1.840.114 350.1.13.10 4.2.7.2.686 [id number] [facility] 2022-06-28 00:00:00 2022-06-28 00:00:00 Patient Secure Msg Doctor Unassigned, [place] [facility] 1.0.114 350.1.13.10 4.2.7.2.686 [id number] [facility] 2022-06-26 08:47:07 2022-06-26 23:59:00 Hospital Encounter [facility] 1.114 350.1.13.10 4.2.7.2.686 [id number] [facility] 2022-06-26 08:46:05 2022-06-26 08:46:00 Outpatient R CARMELLA [facility] [id number] [facility] 2022-06-26 08:30:00 2022-06-26 08:46:00 Hospital Encounter [facility] 1.114 350.1.13.10 4.2.7.2.686 [id number] [facility] 2022-06-18 00:00:00 2022-06-18 00:00:00 Case Management [facility] 1.114 350.1.13.10 4.2.7.2.686 [id number] [facility] 2022-06-11 00:00:00 2022-06-11 00:00:00 Telephone [facility] 1.114 350.1.13.10 4.2.7.2.686 [id number] 044 [id number] [facility] 2022-06-10 11:03:40 2022-06-10 23:59:00 Outpatient R ISABELLE PRECIADO [facility] [id number] [facility] 2022-06-10 10:00:00 2022-06-10 23:59:00 Hospital Encounter Isabelle Preciado [facility] 1.114 350.1.13.10 4.2.7.2.686 [id number] 803 [id number] [facility] 2022-06-06 00:00:00 2022-06-06 00:00:00 Case Management Mikael Shafer [facility] 1.20.114 350.1.13.10 4.2.7.2.686 [id number] [id number] [facility] 2022-06-05 09:46:00 2022-06-05 13:39:00 Emergency X SINGER GURU [facility] [[email or web address]] ERT [id number] [facility] 2022-06-05 09:46:00 2022-06-05 13:39:00 Emergency Guru Meza [facility] 1.0.114 350.1.13.10 4.2.7.2.686 [id number] 084 [id number] [facility] 2022-04-05 00:00:00 2022-04-05 00:00:00 Telephone Kirti Haneye-[employer] [facility] 1.114 350.1.13.10 4.2.7.2.686 [id number] 044 [id number] [facility] 2022-04-02 00:00:00 2022-04-02 00:00:00 Refill Kirti Haneye COUNT INCLUDES THE [facility] 1.2.114 350.1.13.10 4.2.7.2.686 [id number] 044 [id number] [facility] 2022-03-28 00:00:00 2022-03-28 00:00:00 Orders Only Doctor Unassigned, [place] [facility] 1.20.114 350.1.13.10 4.2.7.2.686 [id number] [id number] [facility] 2022-03-27 00:00:00 2022-03-27 00:00:00 Telephone Ruthie Haney [facility] 1.840.114 350.1.13.10 4.2.7.2.686 [id number] 044 [id number] [facility] 2022-03-14 11:15:00 2022-03-14 11:30:00 Office Visit Mamie Barboza [facility] 1.840.114 350.1.13.10 4.2.7.2.686 [id number] [facility] 2022-03-14 11:15:00 2022-03-14 11:15:00 Outpatient R TAMRA [facility] [id number] [facility] 2022-03-14 11:15:00 2022-03-14 11:15:00 Outpatient R TAMRA [facility] [id number] [facility] 2022-03-13 09:00:00 2022-03-13 09:00:00 Outpatient R ROSY FLOWERS [facility] [id number] [facility] 2022-03-13 09:00:00 2022-03-13 09:00:00 Outpatient R ROSY FLOWERS [facility] [id number] [facility] 2022-03-13 00:00:00 2022-03-13 00:00:00 Telephone Chong Bailey [facility] 1.840.114 350.1.13.10 4.2.7.2.686 [id number] [facility] 2022-03-11 00:00:00 2022-03-11 00:00:00 Orders Only Doctor Unassigned, [place] [facility] 1.840.114 350.1.13.10 4.2.7.2.686 [id number] [id number] [facility] 2022-03-07 00:00:00 2022-03-07 00:00:00 Telephone Chong Bailey [facility] 1.2840.114 350.1.13.10 4.2.7.2.686 [id number] 198 [id number] [facility] 2022-03-06 00:00:00 2022-03-06 00:00:00 Telephone BarbozaMamie [facility] 1.2840.114 350.1.13.10 4.2.7.2.686 [id number] [facility] 2022-03-06 00:00:00 2022-03-06 00:00:00 Telephone Chong Bailey [facility] 1.2840.114 350.1.13.10 4.2.7.2.686 [id number] [facility] 2022-03-01 00:00:00 2022-03-01 00:00:00 Telephone Medina Ruthie Gloria [facility] 1.2840.114 350.1.13.10 4.2.7.2.686 [id number] [facility] 2022-02-28 00:00:00 2022-02-28 00:00:00 Telephone Chong Bailey [facility] 1.2840.114 350.1.13.10 4.2.7.2.686 [id number] [facility] 2022-02-27 00:00:00 2022-02-27 00:00:00 Outpatient R CHONG BAILEY [facility] [id number] [facility] 2022-02-27 00:00:00 2022-02-27 00:00:00 Orders Only Doctor Unassigned, [place] [facility] 1.20.114 350.1.13.10 4.2.7.2.686 [id number] [id number] [facility] 2022-02-26 00:00:00 2022-02-26 00:00:00 Telephone Chong Bailey [facility] 1.2840.114 350.1.13.10 4.2.7.2.686 [id number] [facility] 2022-02-20 10:27:42 2022-02-20 23:59:00 Outpatient R CHONG BAILEY [facility] [id number] [facility] 2022-02-20 10:27:42 2022-02-20 23:59:00 Hospital Encounter Chong Bailey [facility] 1.2840.114 350.1.13.10 4.2.7.2.686 [id number] [facility] 2022-02-20 11:15:00 2022-02-20 11:30:00 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 Visit Pob, Adc Lab Main [facility]ong [facility] 1.840.114 350.1.13.10 4.2.7.2.686 [id number] [facility] 2022-02-20 00:00:00 2022-02-20 00:00:00 Telephone Chong Bailey [facility] 1.2840.114 350.1.13.10 4.2.7.2.686 [id number] 198 [id number] [facility] 2022-02-20 00:00:00 2022-02-20 00:00:00 Orders Only Doctor Unassigned, [place] [facility] 1.2840.114 350.1.13.10 4.2.7.2.686 [id number] [facility] 2022-02-18 14:30:00 2022-02-18 14:26:49 Outpatient R CHONG BAILEY [facility] [id number] [facility] 2022-02-18 00:00:00 2022-02-18 00:00:00 Telephone Chong Bailey [facility] 1.2840.114 350.1.13.10 4.2.7.2.686 [id number] [facility] 2022-02-11 00:00:00 2022-02-11 00:00:00 Telephone [facility] 1.840.114 350.1.13.10 4.2.7.2.686 [id number] 044 [id number] [facility] 2022-02-01 00:00:00 2022-02-01 00:00:00 Telephone Chong [facility] 1.840.114 350.1.13.10 4.2.7.2.686 [id number] [facility] 2022-01-31 09:28:33 2022-01-31 23:59:00 Outpatient R CHONG BAILEY [facility] [id number] [facility] 2022-01-31 09:28:33 2022-01-31 23:59:00 Hospital Encounter Chong Bailey [facility] 1.2840.114 350.1.13.10 4.2.7.2.686 [id number] [facility] 2022-01-30 00:00:00 2022-01-30 00:00:00 Orders Only Doctor Unassigned, [place] [facility] 1.2840.114 350.1.13.10 4.2.7.2.686 [id number] [id number] [facility] 2022-01-27 21:17:00 2022-01-27 23:49:00 Emergency X SANDRA ANDRADE [facility] [[email or web address] ERT [id number] [facility] 2022-01-27 21:17:00 2022-01-27 23:49:00 Emergency Sandra Andrade [facility] 1.2840.114 350.1.13.10 4.2.7.2.686 [id number] [facility] 2022-01-24 00:00:00 2022-01-24 00:00:00 Telephone Chong Bailey [facility] 1.0.114 350.1.13.10 4.2.7.2.686 [id number] [facility] 2022-01-11 00:00:00 2022-01-11 00:00:00 Telephone Chong Bailey [facility] 1.0.114 350.1.13.10 4.2.7.2.686 [id number] 198 [id number] [facility] 2022-01-10 12:24:00 2022-01-10 13:44:00 Emergency X FERMIN CHAUANNE [facility] [[email or web address] ERT [id number] [facility] 2022-01-10 12:24:00 2022-01-10 13:44:00 Emergency Rekha Chau [facility] 1.20.114 350.1.13.10 4.2.7.2.686 [id number] 084 [id number] [facility] 2022-01-10 00:00:00 2022-01-10 00:00:00 Patient Secure Msg Doctor Unassigned, [place] [facility] 1.2840.114 350.1.13.10 4.2.7.2.686 [id number] [facility] 2022-01-07 14:55:00 2022-01-07 23:59:00 [facility] 1.2.840.114 350.1.13.10 4.2.7.2.686 [id number] [facility] 2022-01-07 17:40:00 2022-01-07 18:00:00 Urgent Care Provider, [facility] Neli Baron [facility] 1.2.840.114 350.1.13.10 4.2.7.2.686 [id number] [facility] 2022-01-07 16:00:00 2022-01-07 16:00:00 Office Visit [facility]ong [facility] 1..840.114 350.1.13.10 4.2.7.2.686 [id number] [facility] 2022-01-07 16:00:00 2022-01-07 15:12:51 Outpatient R CHONG BAILEY [facility] [id number] [facility] 2022-01-07 16:00:00 2022-01-07 15:12:51 Outpatient R CHONG BAILEY [facility] [id number] [facility] 2022-01-07 00:00:00 2022-01-07 00:00:00 Telephone Ruthie Haney [facility] 1.2.840.114 350.1.13.10 4.2.7.2.686 [id number] [facility] 2022-01-03 00:00:00 2022-01-03 00:00:00 Outpatient ROSY CARLSON [facility] [id number] [facility] 2021-11-29 14:00:00 2021-11-29 14:00:00 Outpatient ROSY CARLSON [facility] [id number] [facility] 2021-11-20 00:00:00 2021-11-20 00:00:00 Telephone Ruthie Haney [facility] 1.284.114 350.1.13.10 4.2.7.2.686 [id number] [facility] 2021-11-12 00:00:00 2021-11-12 00:00:00 Telephone Bailey, Chong Mcleod [facility] 1.84.114 350.1.13.10 4.2.7.2.686 [id number] [facility] 2021-11-09 09:00:00 2021-11-09 09:00:00 Outpatient R CHONG BAILEY [facility] [id number] [facility] 2021-11-06 00:00:00 2021-11-06 00:00:00 Refill Mamie Barboza [facility] 1.84.114 350.1.13.10 4.2.7.2.686 [id number] [facility] 2021-11-06 00:00:00 2021-11-06 00:00:00 Refill Doctor Unassigned, [place] [facility] 1.284.114 350.1.13.10 4.2.7.2.686 [id number] [facility] 2021-11-05 15:54:00 2021-11-05 20:33:00 Emergency X DEIDRA MEEK [email or web address] ERT [id number] [facility] 2021-11-05 15:54:00 2021-11-05 20:33:00 Emergency Deidra Meek G [facility] 1.84.114 350.1.13.10 4.2.7.2.686 [id number] [facility] 2021-11-01 00:00:00 2021-11-01 00:00:00 Telephone Mamie Barboza [facility] 1.2.840.114 350.1.13.10 4.2.7.2.686 [id number] [facility] 2021-10-31 14:00:00 2021-10-31 14:00:00 Outpatient R ROSY FLOWERS [facility] [id number] [facility] 2021-10-22 00:00:00 2021-10-22 00:00:00 [facility] 1..840.114 350.1.13.10 4.2.7.2.686 [id number] [facility] 2021-10-17 00:00:00 2021-10-17 00:00:00 Telephone Rosy Flowers [facility] 1..840.114 350.1.13.10 4.2.7.2.686 [id number] [facility] 2021-10-11 00:00:00 2021-10-11 00:00:00 [facility] 1..840.114 350.1.13.10 4.2.7.2.686 [id number] [facility] 2021-10-04 10:45:44 2021-10-04 23:59:00 [facility] 1.2.840.114 350.1.13.10 4.2.7.2.686 [id number] [facility] 2021-10-04 10:30:00 2021-10-04 10:58:26 Outpatient R ROSY FLOWERS [facility] [id number] [facility] 2021-10-04 10:30:00 2021-10-04 10:58:26 Outpatient R ROSY FLOWERS [facility] [id number] [facility] 2021-10-04 10:11:17 2021-10-04 10:58:26 Office Visit Rosy Flowers [facility] 1.2.840.114 350.1.13.10 4.2.7.2.686 [id number] [id number] [facility] 2021-10-03 14:00:00 2021-10-03 14:23:38 [facility] [id number] [facility] 2021-10-03 14:00:00 2021-10-03 14:23:38 Outpatient R MAMIE BARBOZA [facility] [id number] [facility] 2021-10-03 14:00:00 2021-10-03 14:23:38 Outpatient R TAMRA [facility] [id number] [facility] 2021-10-03 13:57:05 2021-10-03 14:23:38 [facility] 1.2.840.114 350.1.13.10 4.2.7.2.686 [id number] [facility] 2021-10-01 00:00:00 2021-10-01 00:00:00 Telephone Barboza [facility] JERALD?[facility] 1.2.840.114 350.1.13.10 4.2.7.2.686 [id number] [facility] 2021-09-27 13:30:00 2021-09-27 13:30:00 Outpatient R ROSY FLOWERS [facility] [id number] [facility] 2021-09-27 13:30:00 2021-09-27 13:30:00 Outpatient R ROSY FLOWERS [facility] [id number] [facility] 2021-09-25 10:12:06 2021-09-25 23:59:00 Outpatient R TAMRA [facility] [id number] [facility] 2021-09-25 10:12:06 2021-09-25 23:59:00 Hospital Encounter Mamie Barboza [facility] 1.840.114 350.1.13.10 4.2.7.2.686 [id number] [facility] 2021-09-25 10:12:06 2021-09-25 23:59:00 Outpatient R TAMRA [facility] [id number] [facility] 2021-09-25 00:00:00 2021-09-25 00:00:00 Orders Only Doctor Unassigned, [place] [facility] 1.0.114 350.1.13.10 4.2.7.2.686 [id number] [facility] 2021-09-25 00:00:00 2021-09-25 00:00:00 Telephone Ruthie Haney [facility] 1.840.114 350.1.13.10 4.2.7.2.686 [id number] [facility] 2021-09-19 00:00:00 2021-09-19 00:00:00 Telephone Tamra [facility] Jerald?[facility] Office Building 1.84.114 350.1.13.10 4.2.7.2.686 [id number] [facility] 2021-09-18 00:00:00 2021-09-18 00:00:00 Patient Secure Msg Doctor Unassigned, [place] [facility] 1.2.114 350.1.13.10 4.2.7.2.686 [id number] [facility] 2021-09-15 00:00:00 2021-09-15 00:00:00 Telephone Ruthie Haney [facility] Jerald?[facility] Office Building 1.840.114 350.1.13.10 4.2.7.2.686 [id number] [facility] 2021-09-13 13:21:54 2021-09-13 13:51:54 [facility] Office Building 1.84.114 350.1.13.10 4.2.7.2.686 [id number] [facility] 2021-09-13 13:15:00 2021-09-13 13:49:15 Outpatient R TAMRA [facility] [id number] [facility] 2021-09-13 13:15:00 2021-09-13 13:49:15 Outpatient Amador BARBOZA [facility] [id number] [facility] 2021-09-13 13:15:00 2021-09-13 13:49:15 Outpatient R TAMRA [facility] [id number] [facility] 2021-09-13 00:00:00 2021-09-13 00:00:00 Refill Ruthie Haney [facility] Jerald?[facility] Office Building 1.84.114 350.1.13.10 4.2.7.2.686 [id number] [id number] [facility] 2021-09-11 09:59:00 2021-09-11 11:16:00 Emergency Guru Meza [facility] 1.840.114 350.1.13.10 4.2.7.2.686 [id number] [facility] 2021-09-11 09:59:00 2021-09-11 11:16:00 Emergency X GURU MEZA [facility] [[email or web address]] ERT [id number] [facility] 2021-09-11 09:59:00 2021-09-11 11:16:00 Emergency X GURU MEZA [facility] [[email or web address] ERT [id number] [facility] 2021-09-10 00:00:00 2021-09-10 00:00:00 Patient Secure Msg Doctor Unassigned, [place] [facility] 1..840.114 350.1.13.10 4.2.7.2.686 [id number] [facility] 2021-09-05 11:55:00 2021-09-05 14:02:00 Emergency Guru Meza [facility] 1..840.114 350.1.13.10 4.2.7.2.686 [id number] 084 [id number] [facility] 2021-09-05 09:17:56 2021-09-05 09:32:56 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, Ruthie May Pending sale to [facility] Office Building 1.2.840.114 350.1.13.10 4.2.7.2.686 [id number] [facility] 2021-09-05 08:00:00 2021-09-05 09:16:46 Outpatient RUTHIE THACKER [facility] [id number] [facility] 2021-09-05 08:00:00 2021-09-05 09:16:46 Outpatient R RUTHIE HANEY [facility] [id number] [facility] 2021-09-05 08:00:00 2021-09-05 09:16:46 Outpatient R RUTHIE HANEY [facility] [[email or web address]] ERT [id number] [facility] 2021-09-05 07:55:15 2021-09-05 09:16:46 Office Visit Ruthie Haney [facility]?Susana farias Medical Office Building 1..840.114 350.1.13.10 4.2.7.2.686 [id number] [facility] 2021-09-05 08:00:00 2021-09-05 08:00:00 Outpatient R RUTHIE HANEY [facility] [id number] [facility] 2021-09-05 00:00:00 2021-09-05 00:00:00 Orders Only Doctor Unassigned, [place] [facility] 1.840.114 350.1.13.10 4.2.7.2.686 [id number] [facility] 2021-09-03 02:02:00 2021-09-03 02:31:00 Emergency X LINDA DEGROOT [facility] [[email or web address]] ERT [id number] [facility] 2021-08-31 11:17:00 2021-08-31 11:30:00 Emergency Guru Meza [facility] 1..840.114 350.1.13.10 4.2.7.2.686 [id number] [facility] 2021-08-31 11:17:00 2021-08-31 11:30:00 Emergency X GURU MEZA [facility] [[email or web address]] ERT [id number] [facility] 2021-08-31 11:17:00 2021-08-31 11:30:00 Emergency X GURU MEZA [facility] [[email or web address]] ERT [id number] [facility] 2021-08-30 10:17:00 2021-08-30 12:25:00 Emergency Timothy Bailey [facility] 1.2.840.114 350.1.13.10 4.2.7.2.686 [id number] [facility] 2021-08-30 10:17:00 2021-08-30 12:25:00 Emergency X TIMOTHY BAILEY [facility] [[email or web address]] ERT [id number] [facility] 2021-08-30 10:17:00 2021-08-30 12:25:00 Emergency X TIMOTHY BAILEY [facility] [[email or web address]] ERT [id number] [facility] 2021-08-26 12:18:00 2021-08-26 12:26:00 Emergency Prosper Sims ZaneAvivara Vidal [facility] 1.2.840.114 350.1.13.10 4.2.7.2.686 [id number] [facility] 2021-08-26 12:18:00 2021-08-26 12:26:00 Emergency X AVIVA DEGROOTRA [facility] [[email or web address]] ERT [id number] [facility] 2021-08-26 12:18:00 2021-08-26 12:26:00 Emergency X ZANEAVIVARA [facility] [[email or web address]] ERT [id number] [facility] 2021-08-26 12:18:00 2021-08-26 12:26:00 Emergency X LINDA DEGROOT [facility] [[email or web address]] ERT [id number] [facility] 2021-08-23 14:09:00 2021-08-23 14:43:00 Emergency Aviva Degrootra Drake [facility] 1.2840.114 350.1.13.10 4.2.7.2.686 [id number] [facility] 2021-08-23 14:09:00 2021-08-23 14:43:00 Emergency X LINDA DEGROOT [facility] [[email or web address]] ERT [id number] [facility] 2021-08-23 14:09:00 2021-08-23 14:43:00 Emergency X LINDA DEGROOT [facility] [[email or web address]] ERT [id number] [facility] 2021-08-09 20:23:00 2021-08-09 21:57:00 Emergency Meghan Harvey [facility] 1.2.840.114 350.1.13.10 4.2.7.2.686 [id number] [facility] 2021-08-09 16:53:00 2021-08-09 17:40:00 Emergency X [facility] [[email or web address]] ERT [id number] [facility] 2021-08-09 16:53:00 2021-08-09 17:40:00 Emergency [facility] 1.2.840.114 350.1.13.10 4.2.7.2.686 [id number] [facility] 2021-08-09 16:53:00 2021-08-09 17:40:00 Emergency X [facility] [[email or web address]] ERT [id number] [facility] 2021-08-05 01:08:00 2021-08-05 04:43:00 Emergency Chau Rekha Deana Regis [facility] 1.2.840.114 350.1.13.10 4.2.7.2.686 [id number] [facility] 2021-08-05 01:08:00 2021-08-05 04:43:00 Emergency X REGIS CORTEZ [facility] [[email or web address]] ERT [id number] [facility] 2021-06-24 12:31:00 2021-06-24 14:00:00 Emergency Janet Love Sindy [facility] 1.2.840.114 350.1.13.10 4.2.7.2.686 [id number] [id number] [facility] 2021-06-24 12:31:00 2021-06-24 14:00:00 Emergency X IVANJanet [facility] [[email or web address]] ERT [id number] [facility] 2021-06-24 12:31:00 2021-06-24 14:00:00 Emergency X Janet LOVE [facility] [[email or web address]] ERT [id number] [facility] 2021-06-19 11:32:00 2021-06-19 14:24:00 Emergency Chay Weeks [facility] 1.2.840.114 350.1.13.10 4.2.7.2.686 [id number] [facility] 2021-06-19 11:32:00 2021-06-19 14:24:00 Emergency X CHAY WEEKS [facility] [[email or web address]] ERT [id number] [facility] 2021-06-02 12:03:00 2021-06-02 12:24:00 Emergency Barry Gomez [facility] 1.2.840.114 350.1.13.10 4.2.7.2.686 [id number] [facility] 2021-06-02 12:03:00 2021-06-02 12:24:00 Emergency X BARRY GOMEZ [facility] [[email or web address]] ERT [id number] [facility] 2021-06-02 12:03:00 2021-06-02 12:24:00 Emergency X BARRY GOMEZ [facility] [[email or web address] ERT [id number] [facility] 2021-05-22 09:22:00 2021-05-22 10:24:00 Emergency GrayBrian [facility] 1.2.840.114 350.1.13.10 4.2.7.2.686 [id number] 2021-05-22 09:22:00 2021-05-22 10:24:00 Emergency GrayBrian [facility] 1.2.840.114 350.1.13.10 4.2.7.2.686 [id number] [id number] [facility] 2021-05-22 09:22:00 2021-05-22 10:24:00 Emergency X GRAYBRIAN [facility] [[email or web address]] ERT [id number] [facility] 2021-05-22 09:22:00 2021-05-22 10:24:00 Emergency X BRIAN GRAY [facility] [[email or web address] ERT [id number] [facility] 2021-04-05 11:37:00 2021-04-05 13:25:00 Emergency Meghan Harvey [facility] 1.2.840.114 350.1.13.10 4.2.7.2.686 [id number] [id number] 2021-04-05 11:37:00 2021-04-05 13:25:00 Emergency Meghan Harvey [facility] 1.2.840.114 350.1.13.10 4.2.7.2.686 [id number] [id number] [facility] 2021-04-05 11:37:00 2021-04-05 13:25:00 Emergency X MEGHAN HARVEY [facility] [[email or web address]] ERT [id number] [facility] 2021-04-05 11:37:00 2021-04-05 13:25:00 Emergency X MEGHAN HARVEY [facility] [[email or web address]] ERT [id number] [facility] 2021-03-16 08:30:00 2021-03-16 10:05:00 Emergency Linda Degroot [facility] 1.2.840.114 350.1.13.10 4.2.7.2.686 [id number] 084 [id number] 2021-03-16 08:30:00 2021-03-16 10:05:00 Emergency Linda Degroot [facility] 1.2.840.114 350.1.13.10 4.2.7.2.686 [id number] 084 [id number] [facility] 2021-03-16 00:00:00 2021-03-16 00:00:00 Orders Only Doctor Unassigned, [place] [facility] 1.2.840.114 350.1.13.10 4.2.7.2.686 [id number] [id number] 2021-03-16 00:00:00 2021-03-16 00:00:00 Orders Only Doctor Unassigned, [place] [facility] 1.2.840.114 350.1.13.10 4.2.7.2.686 [id number] [facility] 2021-03-02 00:00:00 2021-03-02 00:00:00 Telephone Chong Bailey [facility]ac[facility] [place] 1.2.840.114 350.1.13.10 4.2.7.2.686 [id number] 2021-03-02 00:00:00 2021-03-02 00:00:00 Telephone Chong Bailey [facility] Surgical [facility] zacarias [place] 1.2.840.114 350.1.13.10 4.2.7.2.686 [id number] [facility] 2021-02-17 17:20:00 2021-02-17 18:16:00 Emergency Aviva Degrootra Vidal [facility] 1.2.840.114 350.1.13.10 4.2.7.2.686 [id number] [id number] 2021-02-17 17:20:00 2021-02-17 18:16:00 Emergency Aviva Degrootra Drake [facility] 1.2.840.114 350.1.13.10 4.2.7.2.686 [id number] 084 [id number] [facility] 2021-02-17 17:20:00 2021-02-17 18:16:00 Emergency X LINDA DEGROOT [facility] [[email or web address] ERT [id number] [facility] 2021-02-17 17:20:00 2021-02-17 18:16:00 Emergency X ZANEAVIVARA [facility] [[email or web address] ERT [id number] [facility] 2021-02-12 11:02:00 2021-02-12 11:46:00 Emergency Chay Weeks [facility] 1.2.840.114 350.1.13.10 4.2.7.2.686 [id number] 084 [id number] 2021-02-12 11:02:00 2021-02-12 11:46:00 Emergency X CHAY WEEKS [facility] [[email or web address]] ERT [id number] [facility] 2021-02-12 11:02:00 2021-02-12 11:46:00 Emergency X CHAY WEEKS [facility] [[email or web address] ERT [id number] [facility] 2021-02-12 11:02:00 2021-02-12 11:46:00 Emergency Chay Weeks [facility] 1.2.840.114 350.1.13.10 4.2.7.2.686 [id number] 084 [id number] [facility] 2020-09-28 00:00:00 2020-09-28 00:00:00 Pete Barboza [facility] Surgical [facility] 1.2.840.114 350.1.13.10 4.2.7.2.686 [id number] 2020-09-28 00:00:00 2020-09-28 00:00:00 Pete Barboza [facility] Surgical [facility] 1.2.840.114 350.1.13.10 4.2.7.2.686 [id number] [facility] 2020-07-18 11:27:00 2020-07-18 12:25:00 Emergency [facility] 1.2.840.114 350.1.13.10 4.2.7.2.686 [id number] 2020-07-18 11:27:00 2020-07-18 12:25:00 Emergency Isaac [facility] 1.2.840.114 350.1.13.10 4.2.7.2.686 [id number] [id number] [facility] 2020-07-14 10:35:00 2020-07-14 11:01:00 [facility] 1.2.840.114 350.1.13.10 4.2.7.2.686 [id number] 084 [id number] 2020-07-14 10:35:00 2020-07-14 11:01:00 Emergency X BRIAN GRAY [facility] [[email or web address] ERT [id number] [facility] 2020-07-14 10:35:00 2020-07-14 11:01:00 Emergency Brian Gray [facility] 1.2.840.114 350.1.13.10 4.2.7.2.686 [id number] 084 [id number] [facility] 2020-07-06 00:00:00 2020-07-06 00:00:00 Letter (Out) [facility] 1.2.840.114 350.1.13.10 4.2.7.2.686 [id number] [id number] 2020-07-06 00:00:00 2020-07-06 00:00:00 Letter (Out) [facility] 1.2.840.114 350.1.13.10 4.2.7.2.686 [id number] [facility] 2020-07-03 14:13:00 2020-07-03 17:14:00 Emergency Janet Love [facility] 1.2.840.114 350.1.13.10 4.2.7.2.686 [id number] 084 [id number] 2020-07-03 14:13:00 2020-07-03 17:14:00 Emergency Ivan, K [facility] 1.2.840.114 350.1.13.10 4.2.7.2.686 [id number] 084 [id number] [facility] 2020-06-18 00:00:00 2020-06-18 00:00:00 Orders Only Doctor Unassigned, [place] [facility] 1.2.840.114 350.1.13.10 4.2.7.2.686 [id number] [id number] 2020-06-18 00:00:00 2020-06-18 00:00:00 Orders Only Doctor Unassigned, [place] [facility] 1.2.840.114 350.1.13.10 4.2.7.2.686 [id number] [facility] 2020-06-11 07:22:31 2020-06-11 07:47:00 [facility] 1.2.840.114 350.1.13.10 4.2.7.2.686 [id number] 084 [id number] 2020-06-11 07:22:31 2020-06-11 07:47:00 [facility] 1.2.840.114 350.1.13.10 4.2.7.2.686 [id number] 084 [id number] [facility] 2020-06-11 00:00:00 2020-06-11 00:00:00 Orders Only Doctor Unassigned, [place] [facility] 1.2.840.114 350.1.13.10 4.2.7.2.686 [id number] [id number] 2020-06-11 00:00:00 2020-06-11 00:00:00 Orders Only Doctor Unassigned, [place] [facility] 1.2.840.114 350.1.13.10 4.2.7.2.686 [id number] [facility] 2020-06-03 15:21:35 2020-06-03 18:43:00 Emergency Chay Weeks [facility] 1.2.840.114 350.1.13.10 4.2.7.2.686 [id number] 084 [id number] 2020-06-03 15:21:35 2020-06-03 18:43:00 Emergency Chay Weeks [facility] 1.2.840.114 350.1.13.10 4.2.7.2.686 [id number] 084 [id number] [facility] 2020-06-03 00:00:2020-06-03 00:00:00 Orders Only Doctor Unassigned, [place] [facility] 1.2.840.114 350.1.13.10 4.2.7.2.686 [id number] 2020-06-03 00:00:00 2020-06-03 00:00:00 Orders Only Doctor Unassigned, [place] [facility] 1.2.840.114 350.1.13.10 4.2.7.2.686 [id number] [facility] 2020-05-31 00:00:00 2020-05-31 00:00:00 Telephone Tamra [facility] Surgical Special zacarias [place] 1.2.840.114 350.1.13.10 4.2.7.2.686 [id number] 2020-05-31 00:00:00 2020-05-31 00:00:00 Telephone Tamra [facility] Surgical Specialti zacarias [place] 1.2.840.114 350.1.13.10 4.2.7.2.686 [id number] 198 [id number] [facility] 2020-05-19 00:00:00 2020-05-19 00:00:00 Refill Tamra [facility] zacarias [place] 1.2.840.114 350.1.13.10 4.2.7.2.686 [id number] 198 [id number] [facility] 2020-05-18 13:35:31 2020-05-18 23:59:00 Outpatient R CHONG BAILEY [facility] [id number] [facility] 2020-05-18 13:35:00 2020-05-18 23:59:00 Hospital Encounter Chong Bailey [facility] 1.2.840.114 350.1.13.10 4.2.7.2.686 [id number] [facility] 2020-05-18 15:22:03 2020-05-18 16:00:04 Office Visit Barboza, [facility] Specialti zacarias [place] 1.2.840.114 350.1.13.10 4.2.7.2.686 [id number] 2020-05-18 15:22:03 2020-05-18 16:00:04 Office Visit Mamie Barboza [facility] Special[facility] zacarias [place] 1.2.840.114 350.1.13.10 4.2.7.2.686 [id number] [facility] 2020-05-18 00:00:00 2020-05-18 00:00:00 Telephone Chong Bailey [facility] z[facility] [place] 1.2.840.114 350.1.13.10 4.2.7.2.686 [id number] 198 [id number] [facility] 2020-05-18 00:00:00 2020-05-18 00:00:00 Refill Mamie Barboza [facility] zacarias [place] 1.2.840.114 350.1.13.10 4.2.7.2.686 [id number] [facility] 2020-05-13 09:27:28 2020-05-13 10:04:00 Emergency Linda Degroot [facility] 1.2.840.114 350.1.13.10 4.2.7.2.686 [id number] 084 [id number] [facility] 2020-05-13 09:16:00 2020-05-13 09:16:00 Emergency X [facility] [[email or web address] ERT [id number] [facility] 2020-05-08 00:00:00 2020-05-08 00:00:00 Orders Only Doctor Unassigned, [place] [facility] 1.2.840.114 350.1.13.10 4.2.7.2.686 [id number] [id number] [facility] 2020-05-07 07:13:15 2020-05-07 07:48:00 Emergency Brian Gray [facility] 1.2.840.114 350.1.13.10 4.2.7.2.686 [id number] [facility] 2020-05-07 07:13:15 2020-05-07 07:13:15 Emergency X BRIAN GRAY [facility] [[email or web address] ERT [id number] [facility] 2020-04-09 19:10:48 2020-04-09 20:54:00 Emergency Jacqueline Luu [facility] 1.2.840.114 350.1.13.10 4.2.7.2.686 [id number] 084 [id number] [facility] 2020-04-09 19:04:00 2020-04-09 19:04:00 Emergency X [facility] [[email or web address] ERT [id number] [facility] 2019-08-12 19:51:41 2019-08-12 20:52:00 Emergency Bruce Robins [facility] 1.2.840.114 350.1.13.10 4.2.7.2.686 [id number] 084 [id number] [facility] 2019-07-21 00:00:00 2019-07-21 00:00:00 Transition of [facility] 1.2.840.114 350.1.13.10 4.2.7.2.686 [id number] [facility] 2019-07-17 11:29:01 2019-07-20 16:22:00 Hospital Encounter Meghan Harvey, Kali Perez, Roman Castro [facility] 1.2.840.114 350.1.13.10 4.2.7.2.686 [id number] 093 [id number] [facility] 2019-06-29 09:20:31 2019-06-29 10:41:00 Emergency Linda Degroot [facility] 1.2.840.114 350.1.13.10 4.2.7.2.686 [id number] [id number] [facility] 2019-06-29 00:00:00 2019-06-29 00:00:00 Orders Only Doctor Unassigned, [place] [facility] 1.2.840.114 350.1.13.10 4.2.7.2.686 [id number] [id number] [facility] Results Test Description Test Time Test [...] normal limits. Medial malleolus soft tissue swelling. [facility] XR KNEE 3 VW BILATERAL 4 16:48:11 [...] joint. Trace left knee effusion is present. [facility] [id number] 17:11:04HISTORY: ?Pain. S/P fall. FINDINGS: AP, lateral, oblique views of left elbow showed no acute fractureor dislocation. 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 Bony ossicle adjacent to medial humeral epicondylecould be secondary to remote trauma. CONCLUSIONS: No acute fracture or dislocation in left elbow. Elbow jointeffusion and changes of degenerative arthritis noted.[facility] [id number] 17:09:55HISTORY: ?Low back pain. S/P fall. FINDINGS: [...] L2-L3, there is L4. CONCLUSIONS: No acute findings.[facility] URINALYSIS W SPECIFIC [id number] 18:29:00* Test Item Value Reference Range Interpretation [...] 3267) Lab Interpretation (test cod e = 22282-7) Abnormal [facility] URINALYSIS W SPECIFIC [id number] 18:29:00* Test Item Value Reference Range Interpretation [...] 3267) Lab Interpretation (test cod e = 81278-7) Abnormal [facility] URINALYSIS W SPECIFIC [id number] 18:29:00* Test Item Value Reference Range Interpretation [...] 3267) Lab Interpretation (test cod e = 54158-2) Abnormal [facility] [id number] 15:31:00* Test Item Value Reference Range Interpretation Comme nts POCT PREG (test code = 1605) Negative On board controls acceptable with C Line (test code = 3574) Yes POCT PREG LOT # (test code = 3575) POCT PREG TEST DATE ( test code = 3576) [facility] [id number] 15:31:00* Test Item Value Reference Range Interpretation Comme nts POCT PREG (test code = 1605) Negative On board controls acceptable with C Line (test code = 3574) Yes POCT PREG LOT # (test code = 3575) POCT PREG TEST DATE ( test code = 3576) [facility] [id number] 15:31:00* Test Item Value Reference Range Interpretation Comme nts POCT PREG (test code = 1605) Negative On board controls acceptable with C Line (test code = 3574) Yes POCT PREG LOT # (test code = 3575) POCT PREG TEST DATE ( test code = 357) [facility] URINALYSIS W SPECIFIC [id number] 19:29:00* Test Item Value Reference Range Interpretation [...] clear Lab Interpretation (test cod e = 94001-3) Abnormal [facility] [id number] 19:28:00* Test Item Value Reference Range Interpretation Comme nts POCT PREG (test code = 1605) Negative On board controls acceptable with C Line (test code = 3574) Yes POCT PREG LOT # (test code = 3575) POCT PREG TEST DATE ( test code = 357) Lab Interpretation (test cod e = 63162-7) Normal [facility] URINALYSIS W SPECIFIC [id number] 16:43:00* Test Item Value Reference Range Interpretation [...] clear Lab Interpretation (test cod e = 64537-9) Abnormal [facility] URINALYSIS W SPECIFIC [id number] 16:43:00* Test Item Value Reference Range Interpretation [...] clear Lab Interpretation (test cod e = 79248-5) Abnormal [facility] URINALYSIS W SPECIFIC [id number] 16:43:00* Test Item Value Reference Range Interpretation [...] clear Lab Interpretation (test cod e = 16601-0) [facility]normal [facility] [id number] 16:02:39* Test Item Value Reference Range Interpretation Comments TROPONIN I (test code = 4082976096) 0.014 ng/mL See_Comment [Automated message] The system [...] of biotin. Lab Interpretation (test code = 00464-5) Normal [facility] 15:37:17* Test Item Value Reference Range Interpretation Comme nts LIPASE (test code = 3280408663) 80 U/L 0-220 Lab Interpretation (test cod e = 21939-2) Normal [facility]N-TERMINAL FAT-[id number] 15:37:17* Test Item Value Reference Range Interpretation Comme nts NT-proBNP (test code = 5687706737) 145 pg/mL See_Comment H [Automated message] The system which generated this result transmitted reference range: <=125. The reference range was not used to interpret this result as normal/abnormal. DUNCAN (test code = DUNCAN) Biotin has been reported to cause a negative bias, interpret results relative to patient's use of biotin. Lab Interpretation (test code = 99467-5) Abnormal [facility] HospitalTHYROID STIMULATING [id number] 15:37:17 * Test Item Value Reference Range Interpretation Comme nts TSH (test code = 7247247645) See_Comment Biotin has been reported to cause a negative bias, interpret results relative to patient's use of biotin. [Automated message] The system which generated this result transmitted reference range: 0.45 - 4.70 mIU/L. The reference range was not used to interpret this result as normal/abnormal. Lab Interpretation (test code = 89806-7) Normal [facility]UM2022-10-09 15:37:17* Test Item Value Reference Range Interpretation Comme nts MAGNESIUM (test code = 2835970603) 1.6 mg/dL 1.7-2.4 L Lab Interpretation (test cod e = 06038-5) Abnormal [facility] HospitalCOMP. METABOLIC PANEL (83739)2022-09-01 15:37:16* Test Item Value Reference Range Interpretation Comme nts NA (test code = 1863118751) 139 mmol/L 135-145 K (test code = 8359913606) 4.0 mmol/L 3.5-5 CL (test code = 5287765481) 100 mmol/L 98-108 CO2 TOTAL (test code = 8348473937) 27 mmol/L 23-31 AGAP (test code = 2649681275) 2-16 BUN (test code = 9389870204) 17 mg/dL 7-23 GLUCOSE (test code = 4857128840) 154 mg/dL 70-110 H CREATININE (test code = 9370279151) 0.62 mg/dL 0.5-1.04 TOTAL BILI (test code = 2004751692) 0.9 mg/dL 0.1-1.1 CALCIUM (test code = 6668828902) 9.7 mg/dL 8.6-10.6 T PROTEIN (test code = 8129791801) 7.3 g/dL 6.3-8.2 ALBUMIN (test code = 1224983641) 4.6 g/dL 3.5-5 ALK PHOS (test code = 5576404284) 88 U/L 34-122 ALTv (test code = 1742-6) 23 U/L 5-35 AST(SGOT) (test code = 7574162417) 27 U/L 13-40 eGFR (test code = 0054165764) mL/min/1.73m2 DUNCAN (test code = DUNCAN) Association [...] imaging tests). Lab Interpretation (test code = 61792-6) Abnormal [facility] HospitalETHANOL2022-10-09 15:26:13 ALCOHOL<10mg/dL09/01/2022 10:26 AM [facility]<10 Oisgrtyf38-515 Toxic>100 Depression of [employer] RECORDS CLERK>400 Fatalities ReportedUnCHRISTUS Spohn Hospital BeevilleD-TSOLG5193-82-07 14:51:34* Test Item Value Reference Range Interpretation Comments D-DIMER (test code = 5773029190) See_Comment H [Automated message] The system which [...] a diagnosis. Lab Interpretation (test code = 34867-2) Abnormal [facility] HospitalCB WITH [id number] 14:40:57* Test Item Value Reference Range Interpretation Comme nts WBC (test code = 6690-2) See_Comment [Automated Activehours] The system which generated this result transmitted reference range: 4.30 - 11.10 10*3/?L. The reference range was not used to interpret this result as normal/abnormal. RBC (test code = 789-8) See_Comment [Automated [employer]Italy[employer]gent One] The system which generated this result transmitted [...] 34.6 g/dL 31.6-35.1 RDW-SD (test code = 72323-5) 49.3 fL 39-49.9 RDW-CV (test code = 788-0) 14.8 % 12-15.5 PLT (test code = 777-3) See_Comment [Automated GreenItaly[employer]a ge] The system which generated this result transmitted reference range: 166 - 358 10*3/?L. The reference range was not used to interpret this result as normal/abnormal. MPV (test code = 00577-4) 9.5 fL 9.5-12.9 NRBC/100 WBC (test code = 6210067414) See_Comment [Automated Enpocket ssage] The system which generated this result transmitted reference range: 0.0 - 10.0 /100 WBCs. The reference range was not used to interpret this result as normal/abnormal. NRBC x10^3 (test code = 4154990461) See_Comment [Automated GreenItaly1a ge] The system which generated this result transmitted reference range: 10*3/?L. The reference range was not used to interpret this result as normal/abnormal. GRAN MAT (NEUT) % (test code = 770-8) 58.0 % IMM GRAN % (test code = 5174242207) 0.20 % LYMPH % (test code = 736-9) 35.7 % MONO % (test code = 5905-5) 5.6 % EOS % (test code = 713-8) 0.2 % BASO % (test code = 706-2) 0.3 % GRAN MAT x10^3(ANC) (test code = 0289069514) 5.10 10*3/uL 1.88-7.09 IMM GRAN x10^3 (test code = 4863968662) 0-0.06 LYMPH x10^3 (test code = 731-0) 3.14 10*3/uL 1.32-3.29 MONO x10^3 (test code = 742-7) 0.49 10*3/uL 0.33-0.92 EOS x10^3 (test code = 711-2) 0.03-0.39 L BASO x10^3 (test code = 704-7) 0.03 10*3/uL 0.01-0.07 Lab Interpretation (test code = 17909-0) Abnormal [facility] HospitalComprehensive Metabolic Wotpn3166-25-63 09:02:00* Test Item Value Reference Range Interpretation [...] = ALP) 80 U/L 46-116 N Ethanol Daxvm5563-55-34 09:02:00* Test Item Value Reference Range Interpretation Comme nts Ethanol (test code = ETOH) < 3 mg/dL HCG, Serum Qual (LAB)2021-08-10 09:02:00* Test Item Value Reference Range Interpretation Comme nts HCG, Serum Qual (LAB) (test code = HCGQ) Negative Negative Coronavirus PCR, COVID19 Ubbjb1194-30-36 09:02:00* Test Item Value Reference Range Interpretation Comme nts Coronavirus PCR, COVID19 Rapid (test code = SARSCOV2) For use under Emergency Use Authorization (EUA) only. Coronavirus PCR, COVID19 Rapid (test code = SXSOQHM82.1) Reference Range: Negative SARS-CoV-2 PCR Result: (test code = SARS-CoV-2 PCR Result:) Negative by PCR COVID-19 Status: AsymptomaticComplete Blood Count Auto Yeig1581-21-62 09:02:00* Test Item Value Reference Range Interpretation [...] NRBCP) 0 % CT abdomen pelvis wo [place] [place], [place] [address] Patient Name: Masha Cunningham Medical Record#: [id number] [address]: [address] [place] [address] City/State/Zip: [place] [address]: Christy Partida DO Insurance: [employer] Medicaid /Age/Sex: 1960/60/F Self Pay Admit/Reg Date: 08/10/[address]: Christy Partida DO Location: [facility]/ PCP: Pcp-Md CHRISTOPHER Vallejo Date of Service: 08/10/21 Order (s):CT abdomen pelvis wo con CPT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
[2024-09-12] MEDS ORDERED: METHYLPREDNISOLONE 125 MG INJ ONE (20:20)
[2024-09-12] MEDS ORDERED: METHOCARBAMOL 1,000 MG/10 ML VIAL ONE (20:20)
[2024-09-12] MEDS ORDERED: KETOROLAC 30 MG/ML INJ ONE (20:20)
[2024-09-12] MEDS ORDERED: NA CHLORIDE 0.9% 100 ML ONE (20:20)
[2024-09-12 20:22] LABS: Absolute Basophils 0.1 K/uL (0-0.5); Absolute Eosinophils 0.1 K/uL (0-0.5); Absolute Lymphocytes (CBC) 2.8 K/uL (0.7-4.9); Absolute Monocytes 0.3 K/uL (0.1-1.3); Absolute Neutrophil 4.1 K/uL (1.8-8.0); Basophils % 1.4 % (0-1.3); Eosinophils % 1.6 % (0-4.4); Hematocrit 37.5 % (36.0-45.0); Hemoglobin 12.6 g/dL (12.0-15.0); Lymphocytes % 37.8 % (15.3-44.8); MCH 30.7 pg (27.0-35.0); MCHC 33.7 g/dL (32.0-36.0); MCV 91.1 fL (80-100); MPV 6.2 fL (7.6-11.3); Neutrophils % 55.2 % (41.7-73.7); Nucleated Red Blood Cells % 0.1 % (0-0); Platelets 224 thou/uL (152-406); RBC Red Blood Cell Count 4.12 M/uL (3.86-4.86); Red Cell Distribution Width 13.2 % (12.1-15.2)
[2024-09-12 20:32] LABS: Sqamous Epithelial <5 /HPF (None Seen); Urine Bacteria None Seen /HPF (<20); Urine Bilirubin NEGATIVE (Negative); Urine Blood Negative (Negative); Urine Clarity Turbid (Clear); Urine Color Yellow (Yellow); Urine Crystals Unidentified Few /HPF (None Seen); Urine Culture Reflex Order NOT NEEDED; Urine Glucose NEGATIVE (Negative); Urine Ketones NEGATIVE (Negative); Urine Micro Reflex YN NO BILL MICROSCOPIC; Urine Mucus Slight /HPF (None Seen); Urine Nitrite NEGATIVE (Negative); Urine Protein NEGATIVE (Negative); Urine RBC <5 /HPF (None Seen); Urine Urobilinogen 1+ (Normal); Urine WBC <5 /HPF (<5); Urine Yeast (Budding) Trace /HPF (None Seen)
[2024-09-12 20:45] LABS: ALT/SGPT 22 U/L (13-56); AST/SGOT 14 U/L (15-37); Albumin 3.2 g/dL (3.4-5.0); Albumin/Globulin Ratio 0.9 (1.1-1.8); Alkaline Phosphatase 69 U/L (45-117); Anion Gap 5.8 mEq/L (5.0-15.0); BUN Blood Urea Nitrogen 10 mg/dL (7-18); Bicarbonate 34 mEq/L (21-32); Bilirubin Total 0.3 mg/dL (0.2-1.0); Globulin 3.6 g/dL (2.3-3.5); Glomerular Filtration Rate 94 ml/min (=/>90); Glucose Level 87 mg/dL (74-106); Magnesium 1.8 mg/dL (1.6-2.4); NT PRO-BNP 64 pg/mL (<125); Potassium 2.8 mEq/L (3.5-5.1); Protein, Total 6.8 g/dL (6.4-8.2); Sodium Level 141 mEq/L (136-145); Troponin High Sensitivity 10.1 pg/mL (<58.9)
[2024-09-12 20:48] LABS: Bilirubin Direct < 0.2 mg/dL (0-0.2); Bilirubin Indirect, Calculated 0.1 mg/dL (0.2-0.8)
--- NOTE | 2024-09-12 21:02 | RAD REPORT ---
EXAMINATION: ONE VIEW CHEST XR CLINICAL INDICATION: Female, 63 years old.SOB TECHNIQUE: 1 View, AP supine, X-ray of the chest was performed. [id number]. COMPARISON: 02/29/2024 FINDINGS: Lungs and pleura: Clear lungs. No effusion. Heart and mediastinum: Normal heart size. Unremarkable mediastinal contours. Osseous structures: No acute abnormality. Tubes/lines: None Other: None. IMPRESSION: No acute intrathoracic abnormality.
[2024-09-12] MEDS ORDERED: POTASSIUM 25 MEQ EFFERV TAB ONE (22:23)
--- NOTE | 2024-09-12 22:32 | RAD REPORT ---
Stone Protocol CLINICAL INDICATION: Female, 63 years old.back pain, fall TECHNIQUE: CT abdomen and pelvis was performed, without IV contrast, as per department protocol using a CT stone protocol. Axial, sagittal and coronal reconstructions were obtained. One or more of the following dose reduction techniques were used: Automated exposure control, adjustment of the mA and/o r kV according to the patient size, and/or iterative reconstruction. Unless otherwise specified, incidental findings do not require dedicated imaging follow-up. [id number]. IV CONTRAST: Not administered. COMPARISON: 02/17/2018 FINDINGS: The lack of intravenous contrast limits the sensitivity of this exam for evaluation of solid visceral organs, vascular structures, and retroperitoneum. LOWER CHEST: The visualized lung bases are clear. LIVER: Normal in size and contour. No focal lesion. GALLBLADDER/BILE DUCTS: No biliary ductal dilatation.? PANCREAS: No mass, ductal dilation, or jude-pancreatic fluid. SPLEEN: Normal size. No focal lesion. ADRENALS: Normal; no mass. KIDNEYS AND URETERS: Normal size and contour. No hydronephrosis. URINARY BLADDER: Normal contour. GASTROINTESTINAL TRACT: Stomach is non-dilated. Small bowel has normal course and caliber. No colonic wall thickening or pericolonic inflammatory changes. Normal appendix. PERITONEUM: No free fluid. ABDOMINAL AORTA AND OTHER VESSELS: Normal caliber aorta and IVC. Atherosclerosis. REPRODUCTIVE ORGANS: No pathologic process. MUSCULOSKELETAL: Vertebroplasty changes at L2. L4 compression fracture appears chronic. No fractures identified. Multilevel degenerative changes are present in the spine. ADDITIONAL FINDINGS: None. IMPRESSION: No acute or significant abnormalities in the abdomen or pelvis, with evaluation limited by lack of IV contrast. No urinary tract calculi. Remote appearing lumbar compression fractures.
--- NOTE | 2024-09-13 00:16 | EDPHYS ---
Physician Documentation [facility] Name: Afua Cunningham Age: 63 yrs Sex: Female : 1960 Arrival Date: 09/12/2024 Time: 19:37 Bed 15 Private MD: ED Physician Jace Jerome HPI: 09/12 20:05 This 63 yrs old Black Female presents to ER via EMS with complaints of Low Back Pain cp and Shortness of Breath. 20:05 The patient has shortness of breath at rest. Onset: The symptoms/episode began/occurred cp today. Duration: The symptoms are continuous, and are steadily getting worse. 20:05 The patient presents with pain that is acute. The symptoms are located in the low back. cp Onset: The symptoms/episode began/occurred gradually, and became worse today, suffered fall recently. The pain does not radiate. Associated signs and symptoms: Pertinent negatives: abdominal pain, chest pain, fever, hematuria, numbness, weakness. Historical: - Allergies: 19:53 No Known Allergies; ha1 - Home Meds: 19:53 losartan 100 mg Oral tab 1 tab once daily [Active]; ha1 - PMHx: 19:53 Anxiety; Asthma; Back pain; Chronic pain; Depression; fx in middle of back; GERD; ha1 Hypertension; Schizophrenia; UTI; - PSHx: 19:53 tubal ligation; ha1 - Immunization history:: Adult Immunizations not up to date. - Infectious Disease History:: Denies. - Social history:: Smoking status: Patient reports the use of cigarette tobacco products, smokes one pack cigarettes per day. ROS: 20:10 Constitutional: Negative for body aches, chills, fever, poor PO intake, cp 20:10 Eyes: Negative for injury, pain, redness, and discharge, cp 20:10 ENT: Negative for drainage from ear(s), ear pain, sore throat, difficulty swallowing, difficulty handling secretions, 20:10 Cardiovascular: Negative for chest pain, palpitations, 20:10 Respiratory: Positive for shortness of breath, at rest. 20:10 Abdomen/GI: Negative for abdominal pain, vomiting, diarrhea, constipation, 20:10 Back: Positive for pain at rest, pain with movement, Negative for decreased range of motion, 20:10 : Negative for urinary symptoms, hematuria, 20:10 Neuro: Negative for altered mental status, numbness, syncope, weakness, 20:10 All other systems are negative, Exam: 20:15 Constitutional: The patient appears in no acute distress, alert, awake, cp non-diaphoretic, non-toxic, well developed, well nourished, uncomfortable, 20:15 Head/Face: Normocephalic, atraumatic. cp 20:15 Eyes: Periorbital structures: appear normal, Conjunctiva: normal, no exudate, no injection, Sclera: no appreciated abnormality, Lids and lashes: appear normal, bilaterally, 20:15 ENT: External ear(s): are unremarkable, Nose: is normal, Mouth: Lips: moist, Oral mucosa: pink and intact, moist, Posterior pharynx: Airway: no evidence of obstruction, patent, 20:15 Neck: ROM/movement: is normal, is supple, without pain, no range of motions limitations, no nuchal rigidity, 20:15 Chest/axilla: Inspection: normal, 20:15 Cardiovascular: Rate: normal, Rhythm: regular, Edema: is not appreciated, JVD: is not appreciated, 20:15 Respiratory: mild respiratory distress is noted, Respirations: labored breathing, that is mild, Breath sounds: decreased breath sounds, that are mild, throughout, stridor, is not appreciated, 20:15 Abdomen/GI: Inspection: abdomen appears normal, Palpation: abdomen is soft and non-tender, in all quadrants, 20:15 Back: pain, that is moderate, of the low back area and mid back area, ROM is painful, with all movement, 20:15 Skin: cellulitis, is not appreciated, no rash present. 20:15 Neuro: Orientation: to person, place \T\ time. Mentation: is normal, Motor: moves all fours, strength is normal, Sensation: is normal, 20:52 ECG was reviewed by the Attending Physician. cp Vital Signs: 19:53 BP 143 / 90; Pulse 87; Resp 17 S; Temp 98.1(T); Pulse Ox 98% on R/A; Weight 69.85 kg; ha1 Height 5 ft. 0 in. ; 21:40 BP 142 / 80; Pulse 84; Resp 17 S; Pulse Ox 95% on R/A; ha1 22:40 BP 129 / 63; Pulse 96; Resp 16 S; Pulse Ox 96% on R/A; ha1 23:00 BP 140 / 72; Pulse 95; Resp 17 S; Pulse Ox 96% on R/A; ha1 09/13 00:00 BP 127 / 74; Pulse 96; Resp 17 S; Pulse Ox 97% on R/A; ha1 00:15 BP 129 / 63; Pulse 96; Resp 17 S; Pulse Ox 96% on R/A; ha1 09/12 19:53 Body Mass Index 30.08 (69.85 kg, 152.4 cm) [facility] MDM: 09/12 19:56 Medical Screening Exam initiated cp 23:26 Data reviewed: vital signs, nurses notes, lab test result(s), EKG, radiologic studies, cp CT scan, plain films, and as a result, I will discharge patient. 23:26 Differential diagnosis: asthma, Bronchitis CHF exacerbation, Fatigue Fracture Unstable cp Angina. I considered the following discharge prescriptions or medication management in the emergency department Medications were administered in the Emergency Department. See MAR. Response to treatment: the patient's symptoms have markedly improved after treatment. ED course: VSS. Pain and SOB markedly improved. Will discharge to home for continued monitoring. 09/12 20:00 Order name: Urinalysis W/Microscopic; Complete Time: 22:04 cp 09/12 20:00 Order name: Basic Metabolic Panel; Complete Time: 22:04 cp 09/12 20:00 Order name: CBC with Diff; Complete Time: 22:04 cp 09/12 20:00 Order name: LFT's; Complete Time: 22:04 cp 09/12 20:00 Order name: Magnesium; Complete Time: 22:04 cp 09/12 20:00 Order name: NT PRO-BNP; Complete Time: 22:04 cp 09/12 20:00 Order name: Troponin HS; Complete Time: 22:04 cp 09/12 20:00 Order name: XRAY Chest (1 view); Complete Time: 22:04 cp 09/12 22:06 Order name: CT Stone Protocol; Complete Time: 22:35 cp 09/12 22:37 Interpretation: Report reviewed. 09/12 20:00 Order name: EKG; Complete Time: 20:01 cp 09/12 20:00 Order name: Cardiac monitoring; Complete Time: 21:25 cp 09/12 20:00 Order name: EKG - Nurse/Tech; Complete Time: 21:25 cp 09/12 20:00 Order name: IV Saline Lock; Complete Time: 20:30 cp 09/12 20:00 Order name: Labs collected and sent; Complete Time: 20:30 cp 09/12 20:00 Order name: O2 Per Protocol; Complete Time: 20:30 cp 09/12 20:00 Order name: O2 Sat Monitoring; Complete Time: 20:30 cp EC:52 Rate is 81 beats/min. Rhythm is regular. IL interval is normal. QRS interval is normal. cp QT interval is normal. T waves are Inverted in lead aVR. Interpreted by me. Reviewed by me. Administered Medications: 20:25 Drug: Ketorolac IVP 15 mg IVP once Route: IVP; Site: right antecubital; ha1 21:00 Follow up: Response: No adverse reaction; Pain is decreased ha1 20:28 Drug: MethylPrednisoLONE IVP 125 mg IVP once Route: IVP; Site: right antecubital; ha1 21:00 Follow up: Response: No adverse reaction ha1 20:30 Drug: Methocarbamol IVPB 1 grams IVPB once over 1 hrs; (mix in NS 100 mL) Route: IVPB; ha1 Infused Over: 1 hrs; Site: right antecubital; 22:00 Follow up: Response: No adverse reaction; IV Status: Completed infusion; IV Intake: ha1 100ml 22:37 Drug: Potassium PO Effervescent Tablet 50 mEq PO once; dissolve in 4 ounces of water or ha1 juice Route: PO; 23:00 Follow up: Response: No adverse reaction ha1 22:37 Drug: Potassium PO Effervescent Tablet 25 mEq PO once; dissolve in 4 ounces of water or ha1 juice Route: PO; 23:00 Follow up: Response: No adverse reaction ha1 Disposition: 23:27 I was immediately available on-site in the Emergency Department for consultation in the mn3 care of the patient. Disposition Summary: 09/13/24 00:15 Discharge Ordered Notes: Location: Home cp Problem: new cp Symptoms: have improved cp Condition: Stable cp Diagnosis - Unspecified asthma with (acute) exacerbation cp - Low back pain cp Followup: cp - With: Private Physician - When: 2 - 3 days - Reason: Recheck today's complaints Discharge Instructions: - Discharge Summary Sheet cp - Asthma, Adult cp - Chronic Back Pain cp - Heat Therapy cp - Back Exercises cp Forms: - Medication Reconciliation Form cp - Antibiotic Education cp - Prescription Opioid Use cp - Patient Portal Instructions cp - Leadership Thank You Letter cp Prescriptions: - diclofenac sodium 50 mg Oral tablet, delayed release (enteric coated) - take 1 tablet ORAL route every 12 hours as needed for pain; 20 tablet; Refills: cp 0, Product Selection Permitted - albuterol sulfate 90 mcg/actuation Inhalation HFA Aerosol Inhaler - inhale 2 inhalation INHALATION route every 4 to 6 hours as needed for cp bronchospasm; administer via ventilator; 1 unit; Refills: 0, Product Selection Permitted - Medrol (Joe) 4 mg Oral Tablets, Dose Pack - take 1 tablet ORAL route as directed - follow package instructions; 1 packet; cp Refills: 0, Product Selection Permitted - methocarbamol 750 mg Oral tablet - take 1 tablet ORAL route 4 times per day; 30 tablet; Refills: 0, Product cp Selection Permitted Signatures: Dispatcher [employer] EDMS Shayne Russ PA PA cp Sims, Marcus, DO DO ms3 Belen Hollingsworth RN RN ha1 Corrections: (The following items were deleted from the chart) 20:01 20:01 Urinalysis W/Microscopic+U.LAB.BRZ ordered. EDMS EDMS 20:01 20:01 BASIC METABOLIC PANEL+C.LAB.BRZ ordered. EDMS EDMS 20:01 20:01 CBC+H.LAB.BRZ ordered. EDMS EDMS 20:01 20:01 HEPATIC FUNCTION+C.LAB.BRZ ordered. EDMS EDMS 20:01 20:01 MAGNESIUM+C.LAB.BRZ ordered. EDMS EDMS 20:01 20:01 PROBNP+C.LAB.BRZ ordered. EDMS EDMS 20:01 20:01 Troponin High Sensitivity+C.LAB.BRZ ordered. EDMS EDMS
--- NOTE | 2024-09-13 00:16 | ER ---
Nurse's Notes [facility] Name: Afua Cunningham Age: 63 yrs Sex: Female : 1960 Arrival Date: 09/12/2024 Time: 19:37 Bed 15 Private MD: Diagnosis: Unspecified asthma with (acute) exacerbation;Low back pain Presentation: 09/12 19:53 Chief complaint: EMS states: back pain after falling yesterday. shortness of breath. ha1 19:53 Coronavirus screen: Vaccine status: Patient reports being unvaccinated. Ebola Screen: ha1 No symptoms or risks identified at this time. Initial Sepsis Screen: Does the patient meet any 2 criteria? No. Patient's initial sepsis screen is negative. Does the patient have a suspected source of infection? No. Patient's initial sepsis screen is negative. Risk Assessment: Do you want to hurt yourself or someone else? Patient reports no desire to harm self or others. Onset of symptoms was September 12, 2024. 19:53 Method Of Arrival: EMS: [facility] ha1 19:53 Acuity: ASHA 3 ha1 Triage Assessment: 19:53 General: Appears uncomfortable, Behavior is calm, cooperative. Pain: Complains of pain ha1 in back Pain does not radiate. Pain currently is 8 out of 10 on a pain scale. Quality of pain is described as aching. Neuro: Level of Consciousness is awake, alert, obeys commands, Oriented to person, place, time, situation. Cardiovascular: Patient's skin is warm and dry. Respiratory: Airway is patent Respiratory effort is even, unlabored, Respiratory pattern is regular, symmetrical. GI: Abdomen is round non-distended. : No signs and/or symptoms were reported regarding the genitourinary system. Musculoskeletal: Circulation, motion, and sensation intact. Range of motion: intact in all extremities, Reports pain in back. Historical: - Allergies: 19:53 No Known Allergies; ha1 - Home Meds: 19:53 losartan 100 mg Oral tab 1 tab once daily [Active]; ha1 - PMHx: 19:53 Anxiety; Asthma; Back pain; Chronic pain; Depression; fx in middle of back; GERD; ha1 Hypertension; Schizophrenia; UTI; - PSHx: 19:53 tubal ligation; ha1 - Immunization history:: Adult Immunizations not up to date. - Infectious Disease History:: Denies. - Social history:: Smoking status: Patient reports the use of cigarette tobacco products, smokes one pack cigarettes per day. Screenin:[facility] ED Fall Risk Assessment (Adult) History of falling in the last 3 months, ha1 including since admission Yes- single mechanical fall (1 pt) Confusion or Disorientation No (0 pts) Intoxicated or Sedated No (0 pts) Impaired Gait No (0 pts) Mobility Assist Device Used No (0 pt) Altered Elimination No (0 pt) Score/Fall Risk Level 0 - 2 = Low Risk Oriented to surroundings, Maintained a safe environment, Educated pt \T\ family on fall prevention, incl call for assistance when getting out of bed, Hourly rounding (assess needs \T\ fall precautionary measures) done. Abuse screen: Denies threats or abuse. Denies injuries from another. Nutritional screening: No deficits noted. Tuberculosis screening: No symptoms or risk factors identified. Assessment: 20:00 Reassessment: see triage assessment. ha1 21:00 Reassessment: Patient and/or family updated on plan of care and expected duration. Pain ha1 level reassessed. Patient is alert, oriented x 3, equal unlabored respirations, skin warm/dry/pink. 21:53 Reassessment: eyes close. Respiratory: Airway is patent Respiratory effort is even, ha1 unlabored, Respiratory pattern is regular, symmetrical. 22:17 Reassessment: FAMILY MEMBER CELL [id number]. ha1 23:20 Reassessment: Patient and/or family updated on plan of care and expected duration. Pain ha1 level reassessed. Patient is alert, oriented x 3, equal unlabored respirations, skin warm/dry/pink. 09/13 00:15 Reassessment: CALLED FAMILY MEMBERS TO INFORM OF DISCHARGE AND NEED FOR TRANSPORTATION. ha1 00:20 Reassessment: Patient and/or family updated on plan of care and expected duration. Pain ha1 level reassessed. Patient is alert, oriented x 3, equal unlabored respirations, skin warm/dry/pink. Vital Signs: 09/12 19:53 BP 143 / 90; Pulse 87; Resp 17 S; Temp 98.1(T); Pulse Ox 98% on R/A; Weight 69.85 kg; ha1 Height 5 ft. 0 in. ; 21:40 BP 142 / 80; Pulse 84; Resp 17 S; Pulse Ox 95% on R/A; ha1 22:40 BP 129 / 63; Pulse 96; Resp 16 S; Pulse Ox 96% on R/A; ha1 23:00 BP 140 / 72; Pulse 95; Resp 17 S; Pulse Ox 96% on R/A; ha1 09/13 00:00 BP 127 / 74; Pulse 96; Resp 17 S; Pulse Ox 97% on R/A; ha1 00:15 BP 129 / 63; Pulse 96; Resp 17 S; Pulse Ox 96% on R/A; ha1 09/12 19:53 Body Mass Index 30.08 (69.85 kg, 152.4 cm) ha1 ED Course: 09/12 19:53 Patient arrived in ED. vk 19:53 Patient has correct armband on for positive identification. Placed in gown. Bed in low ha1 position. Call light in reach. Side rails up X 1. 19:53 Arm band placed on right wrist. ha1 19:56 Shayne Russ PA is PHCP. cp 19:56 Jace Jerome DO is Attending Physician. cp 20:00 Client placed on continuous cardiac and pulse oximetry monitoring. NIBP monitoring ha1 applied. library monitor on. 20:10 EKG done, by oil well fishing tool technician. reviewed by Jace Jerome DO. ha1 20:29 Inserted saline lock: 20 gauge in right antecubital area, using aseptic technique. br2 Blood collected. Flushed with 10 mL NS. 20:30 Belen Hollingsworth, RN is Primary Nurse. ha1 20:31 Basic Metabolic Panel Sent. ha1 20:31 LFT's Sent. ha1 20:31 Magnesium Sent. ha1 20:31 NT PRO-BNP Sent. ha1 20:31 Troponin HS Sent. ha1 20:37 Triage completed. ha1 20:59 XRAY Chest (1 view) In Process Unspecified. EDMS 22:25 CT Stone Protocol In Process Unspecified. EDMS 09/13 00:29 No provider procedures requiring assistance completed. ha1 00:47 IV discontinued, intact, bleeding controlled, No redness/swelling at site. Pressure ha1 dressing applied. 00:48 Provided Education on: MEDICATION ADMINISTRATION . ha1 Administered Medications: 09/12 20:25 Drug: Ketorolac IVP 15 mg IVP once Route: IVP; Site: right antecubital; ha1 21:00 Follow up: Response: No adverse reaction; Pain is decreased ha1 20:28 Drug: MethylPrednisoLONE IVP 125 mg IVP once Route: IVP; Site: right antecubital; ha1 21:00 Follow up: Response: No adverse reaction ha1 20:30 Drug: Methocarbamol IVPB 1 grams IVPB once over 1 hrs; (mix in NS 100 mL) Route: IVPB; ha1 Infused Over: 1 hrs; Site: right antecubital; 22:00 Follow up: Response: No adverse reaction; IV Status: Completed infusion; IV Intake: ha1 100ml 22:37 Drug: Potassium PO Effervescent Tablet 50 mEq PO once; dissolve in 4 ounces of water or ha1 juice Route: PO; 23:00 Follow up: Response: No adverse reaction ha1 22:37 Drug: Potassium PO Effervescent Tablet 25 mEq PO once; dissolve in 4 ounces of water or ha1 juice Route: PO; 23:00 Follow up: Response: No adverse reaction ha1 Medication: 21:27 VIS not applicable for this client. ha1 Intake: 22:00 IV: 100ml; Total: 100ml. ha1 Outcome: 09/13 00:15 Discharge ordered by . jesusita 00:47 Condition: stable ha1 00:48 Discharge instructions given to patient, Instructed on discharge instructions, follow ha1 up and referral plans. medication usage, Demonstrated understanding of instructions, follow-up care, medications, Prescriptions given X 2, 01:08 Discharged to home via wheelchair, with family, ha1 01:08 Patient left the ED. ha1 Signatures: Dispatcher [employer] EDMS Shayne Russ PA PA cp Ayala, Heidy RN RN ha1 Ellie Sumner Belinda, RN RN br2
[2024-09-13 06:18] VITALS: TEMP 98.1
[2024-09-13 06:51] VITALS: BP 129/63; O2SAT 96
--- NOTE | 2024-09-14 12:55 | EKG ---
Test Date: 2024-09-12 Test Time: 20:46:42 Blocking Machine Operator Second: BÁRBARA MEASUREMENT RESULTS: Intervals: Rate: 81 MD: 162 QRSD: 82 QT: 414 QTc: 480 [place]: P: 68 MD: 162 QRS: 28 T: 75 INTERPRETIVE STATEMENTS: Normal sinus rhythm Anteroseptal infarct, age undetermined Abnormal ECG Compared to ECG 02/29/2024 07:51:10 No significant changes Electronically Signed On 09-14-24 12:50:53 CDT by Jacky Mills
== END 2024-09-13 01:08 | disposition home or self-care (01) ==
LOC: ER 19:37
DX: J45.901 Unspecified asthma with (acute) exacerbation (principal); M54.50 Low back pain, unspecified; F17.210 Nicotine dependence, cigarettes, uncomplicated
CPT/HCPCS: 96365; 93005; 85025; 81001; 80048; 36415; 83735; 80076; 84484; 83880; 76377; 74176; 71045; 96375; 99285; J2919; J2800

== ENCOUNTER 2024-09-22 22:42 | Emergency (ER) | payer OTHER ==
--- OUTSIDE RECORDS SUMMARY | 2024-09-22 22:50 | XMS REPORT | Continuity of Care Document ---
Author Name Unknown Address [address] [facility] [address] [place] [address] [facility] thconnect Address [address] [facility] [address] [place] [address] Care Team Providers Care Armor Officer Name Role Phone Pcp-None Primary Care Physician Unavailab NGHIA Shukla Attending Clinician Unavailable Chong Bailey MD Attending Clinician Yue Hussein MD Attending Clinician MIRIAM VERGARA Attending Clinician Unavailable Nghia Menendez MD Attending Clinician [phone] Mackenzie Beckwith MD Attending Clinician [phone] CHONG BAILEY Attending Clinician Unavailabl CHONG Lance Attending Clinician Unavailabl e MARYCHUY CERVANTES Attending Clinician Unavailable MARYCHUY CERVANTES Attending Clinician Unavailable Puneet Galvez Attending Clinician + [phone] PUNEET NOVOA Attending Clinician Unavailable Unknown, Attending Attending Clinician Unavailab Marychuy Randolph PA-C Attending Clinician [phone] Radha Flores MD Attending Clinician + [phone] [facility] Attending Clinician Un available Daniela Germain RN Attending Clinician UnavailMACKENZIE Hermosillo Attending Clinician Unavailable Doctor Unassigned, [place] Attending Clinician U navailable ADELITA HOGAN Attending Clinician Unavailable Doctor Unassigned, [place] Attending Clinician U navailable DAYTON CALDERON Attending Clinician Unavailable Dayton Calderon DNP Attending Clinician [phone] ELLIE DELUCA Attending Clinician Unavailable JEANMARIE GARCIA Attending Clinician Unavailable Jeanmarie Garcia MD Attending Clinician +[phone] Nghia Menendez MD Attending Clinician +[phone] Jeanmarie Garcia MD Attending Clinician [phone] Vipin Batista Attending Clinician Unavailable GURU MEZA Attending Clinician Unavailable Guru Meza DO Attending Clinician +[phone] CHAY WEEKS Attending Clinician Unavailable Chay Barron S Attending Clinician +[phone] ALTON REYES Attending Clinician Unavailable ALTON REYES Attending Clinician Unavailable Mackenzie Beckwith MD Attending Clinician [phone] MARYJANE HORNE Attending Clinician Unavaila ble Alton Reyes DO Attending Clinician [phone] JULI TURNER Attending Clinician UnaRAYNE Dorsey Attending Clinician Unavailable Ellie Deluca MD Attending Clinician [phone] MAMIE BARBOZA Attending Clinician Unavailable Green Kiera MCDOWELL Attending Clinician [phone], [facility] Attending Clinician Unavailable Quentin MORGAN, Heather L Attending Clinician [phone] Ebrahirosamaria [employer], Domia Attending Clinician [phone] Unknown, Attending Attending Clinician Unavailab PROSPER Lynn Attending Clinician Unavailable DERECK JOHNSON Attending Clinician Unavailable DERECK JOHNSON Attending Clinician Unavailable SONIA PICKARD Attending Clinician Unavaila jr Pickard ACNPSonia Attending Clinician + [phone] Mamie Cabrales Attending Clinician +[phone] Chong Bailey MD Attending Clinician +[phone] SANDRA ANDRADE Attending Clinician Unavaila ble IbikunSandra Summers F Attending Clinician [phone] MEAGHAN JACOBO Attending Clinician Unavailable DEIDRA MEEK Attending Clinician Unavailable Deidra Meek NP Attending Clinician +[phone] RUTHIE HANEY Attending Clinician Unavailable Layne Weir MD Attending Clinician [phone] LAYNE WEIR Attending Clinician Unavailable Ruthie Davis Attending Clinician +[phone] ISABELLE PRECIADO Attending Clinician Unavailable Isabelle Husain Attending Clinician [phone] [facility] Attending Clinician Unavail able Mikael Shafer MD Attending Clinician + [phone] ROSY FLOWERS [facility] Attending Clinician Unavaila ble Pob, [facility] Main Attending Clinician UnavailREKHA Sanford Attending Clinician Unavailable Rekha Link Attending Clinician [phone] Provider, [facility] Attending Clinician Unavailable Neli Baron MD Attending Clinician [phone] Tor WHITE, Rosy K.H. Attending Clinician + [phone] LINDA DEGROOT Attending Clinician Unavailab rosana HERRINGP, Timothy Attending Clinician +[phone] TIMOTHY BAILEY Attending Clinician Unavailable Linda Degroot DO Attending Clinician + [phone] Christy Partida Attending Clinician Unavailable Wes [employer], Shinrajiv Attending Clinician +[phone] Regis Cortez MD Attending Clinician +[phone] REGIS CORTEZ Attending Clinician Unavailable Janet Tavera Attending Clinician +[phone] Janet LOVE Attending Clinician Unavailable Jason [employer], Barry Ferrer Attending Clinician + [phone] BARRY GOMEZ Attending Clinician Unavailable Brian Gray MD Attending Clinician +[phone] BRIAN GRAY Attending Clinician Unavailable MEGHAN HRAVEY Attending Clinician Unavailable Ary FIGUEROA, Johnna Tenorio Attending Clinician Unavailab rosana Luu [employer], Jacqueline Attending Clinician +[phone] Bruce Loco Attending Clinician +[phone] Jessica FIGUEROA, Jeannie Maloney Attending Clinician +[phone] Kali Caban MD Attending Clinician +[phone] Roman Perez Attending Clinician +[phone] JEANMARIE GARCIA Admitting Clinician Unavailable GURU MEZA Admitting Clinician Unavailable SANDRA ANDRADE Admitting Clinician UnavailDEIDRA Choi Admitting Clinician Unavailable LAYNE WEIR Admitting Clinician Unavailable CHONG BAILEY Admitting Clinician UnavailMAMIE Patel Admitting Clinician Unavailable REKHA CHAU Admitting Clinician Unavailable CHAY WEEKS Admitting Clinician Unavailable MEGHAN HARVEY Admitting Clinician Unavailable Mee WHITE, Kali Melo Admitting Clinician [phone] Payers Payer Name Policy Type Policy Number Effective Date Expirati on Date Source [employer] MEDICARE ADVANTAGE [id number] 2012 00:00:00 [facility] MEDICAID [id number] 2016 00:00:00 MEDICAID [place] [id number] 2024 00:00:00 [facility] [id number] 2023 00:00:00 2023 00:00:00 Problems Condition Name Condition Details Condition Category Status Onset Date Resolution Date Last Treatment Date Treating Clinician Comments Source Palpitatio ns Palpitatio ns Disease Active 618 00:00: 00 [facility] ODOM (dyspnea on exertion) ODOM (dyspnea on exertion) Disease Active 618 00:00: 00 [facility] Cigarette smoker Cigarette smoker Disease Active 618 00:00: 00 [facility] Anxiety Anxiety Disease Active 4-25 00:00: 00 [facility] Depression , unspecifie d depression type Depression , unspecifie d depression type Disease Active 9- 00:00: 00 [facility] Chronic bilateral low back pain without sciatica Chronic bilateral low back pain without sciatica Disease Active 2021-11 1-02 00:00: 00 [facility] Cardiac murmur Cardiac murmur Disease Active 2020-11 0-13 00:00: 00 [facility] Anemia, unspecifie d type Anemia, unspecifie d type Disease Active 2020-11 0-13 00:00: 00 [facility] Chronic GERD Chronic GERD Disease Active 2020-11 0-13 00:00: 00 [facility] Moderate persistent asthma without complicati on Moderate persistent asthma without complicati on Disease Active 2020-11 0-13 00:00: 00 [facility] Hypertensi on, essential Hypertensi on, essential Disease Active 2020-11 0-13 00:00: 00 [facility] Drug-seeki ng behavior Drug-seeki ng behavior Disease Active 2020-11 0-08 00:00: 00 [facility] Altered mental status Altered mental status Disease Active 8-24 00:00: 00 [facility] Obesity (BMI 30-39.9) Obesity (BMI 30-39.9) Disease Active 7-08 00:00: 00 [facility] Hypertensi ve urgency Hypertensi ve urgency Disease Active 05-31 00:00: 00 [facility] Allergies, Adverse Reactions, Alerts Allergy Name Allergy Type Status Severity Reaction(s) Onset Date Inactive Date Treating Clinician Comments Source Unable to Assess DA Active U 08-10 00:00: 00 [facility] No Known Drug Allergie s DA Active U 08-10 00:00: 00 [facility] NO KNOWN ALLERGIE S Drug Class Active [facility] Family History Family Member Diagnosis Comments Start Date Stop Date Sourc e Natural daughter Coronary Heart Disease [facility] Natural mother Coronary Heart Disease [facility] Social History Social Habit Start Date Stop Date Quantity Comments Source History SDOH Alcohol Binge [facility] History SDOH Alcohol Comment [place] [facility] History of tobacco use Passive smoker [facility] Gender [facility] Alcoholic beverage intake 2024-09-08 00:00:00 2024-09-08 00:00:00 Ex-drinker (finding) [facility] Cigarettes smoked current (pack per day) - Reported 2024-08-09 00:00:00 2024-08-09 00:00:00 [facility] Cigarette pack-years 2024-08-09 00:00:00 2024-08-09 00:00:00 [facility] Tobacco use and exposure 2024-08-09 00:00:00 2024-08-09 00:00:00 Smokeless tobacco non-user [facility] Alcohol intake 2024-03-18 00:00:00 2024-03-18 00:00:00 Ex-drinker (finding) [facility] History of Social function 2024-01-14 00:00:00 2024-01-14 00:00:00 [facility] Exposure to SARS-CoV-2 (event) 2023-04-07 00:00:00 2023-04-17 09:48:00 Not sure [facility] History SDOH Alcohol Frequency 2019-07-17 00:00:00 2019-07-17 00:00:00 5 [facility] History SDOH Alcohol Std Drinks 2019-07-17 00:00:00 2019-07-17 00:00:00 3 [facility] Education 2019-05-31 00:00:00 2019-05-31 00:00:00 7 [facility] History SDOH Financial 2019-05-31 00:00:00 2019-05-31 00:00:00 1 [facility] History SDOH Transport Med 2019-05-31 00:00:00 2019-05-31 00:00:00 1 [facility] History SDOH Transport Non-Med 2019-05-31 00:00:00 2019-05-31 00:00:00 1 [facility] Sex assigned at 1960 00:00:00 1960 00:00:00 [facility] Smoking Status Start Date Stop Date Source Smokes tobacco daily 2024-08-09 00:00:00 [facility] Medications Ordered Medication Name Filled Medication Name Start Date Stop Date Current Medication? Ordering Clinician Indication Dosage Frequency Signature (SIG) Comments Components Source HYDROcodone -acetaminop hen 7.5-325 mg per tablet 2023-11 00:00: 00 Yes [id number] 1{tbl} Take 1 tablet by mouth every 6 (six) hours as needed for Pain. Indication s: chronic pain [facility] diclofenac 75 mg EC tablet 2023-11 00:00: 00 Yes [id number] 75mg Take 1 tablet by mouth in the morning and 1 tablet in the evening. Take with meals. [facility] clonazePAM 1 mg tablet 2023-11 00:00: 08-30 00:00 :00 Yes [id number] 1mg Take 1 tablet by mouth every morning and evening. [facility] clonazePAM (KLONOPIN) 1 mg tablet 2023-11 005 00:00: 00 Yes [id number] 1mg Take 1 tablet by mouth in the morning and 1 tablet in the evening. [facility] methocarbam oL 500 mg tablet 2023-11 0-04 00:00: 00 09-02 04:59 :00 No [id number] 500mg Take 1 tablet by mouth 4 (four) times daily as needed for Pain (scale 7-10) for up to 5 days. [facility] clonazePAM 1 mg tablet 08-23 00:00: 00 Yes [id number] 1mg Take 1 tablet by mouth in the morning and 1 tablet in the evening. [facility] clonazePAM (KLONOPIN) tablet 1 mg 08-22 02:36: 00 08-22 02:39 :00 No 1mg 1 mg, Oral, ONCE, 1 dose, On 08/21/24 at 2145, Routine [facility] clonazePAM 1 mg tablet 08-21 00:00: 00 08-23 00:00 :00 No [id number] 1mg Take 1 tablet by mouth in the morning and 1 tablet in the evening. [facility] HYDROcodone -acetaminop hen 7.5-325 mg per tablet 08-16 00:00: 00 09-12 00:00 :00 No [id number] 1{tbl} Take 1 tablet by mouth every 6 (six) hours as needed for Pain. Indication s: chronic pain [facility] VENLAFAXINE 75 mg tablet 08-06 00:00: 00 Yes [id number] TAKE 1 TABLET BY MOUTH IN THE MORNING AND 1 TABLET BY MOUTH IN THE EVENING [facility] HYDROcodone -acetaminop hen 7.5-325 mg per tablet 07-15 00:00: 00 08-16 00:00 :00 No [id number] 1{tbl} Take 1 tablet by mouth every 6 (six) hours as needed for Pain. Indication s: chronic pain [facility] clonazePAM (KLONOPIN) 1 mg tablet 06-14 00:00: 00 08-28 00:00 :00 No [id number] 1mg Take 1 tablet by mouth in the morning and 1 tablet in the evening. [facility] HYDROcodone -acetaminop hen 7.5-325 mg per tablet 06-14 00:00: 00 07-15 00:00 :00 No [id number] 1{tbl} Take 1 tablet by mouth every 6 (six) hours as needed for Pain. Indication s: chronic pain [facility] HYDROcodone -acetaminop hen 7.5-325 mg per tablet 05-13 00:00: 00 06-14 00:00 :00 No [id number] 1{tbl} Take 1 tablet by mouth every 6 (six) hours as needed for Pain. Indication s: chronic pain [facility] clonazePAM (KLONOPIN) 1 mg tablet 04-14 00:00: 00 06-14 00:00 :00 No [id number] 1mg Take 1 tablet by mouth in the morning and 1 tablet in the evening. [facility] HYDROcodone -acetaminop hen 7.5-325 mg per tablet 04-14 00:00: 00 05-13 00:00 :00 No [id number] 1{tbl} Take 1 tablet by mouth every 6 (six) hours as needed for Pain for up to 30 days. Indication s: chronic pain [facility] traZODone 50 mg tablet 04-12 00:00: 00 Yes [id number] 25mg Take 0.5 tablets by mouth at bedtime. [facility] amLODIPine (NORVASC) 10 mg tablet 04-12 00:00: 00 Yes [id number] 10mg Take 1 tablet by mouth in the morning. [facility] HYDROcodone -acetaminop hen 10-325 mg tablet 04-12 00:00: 00 04-14 00:00 :00 No [id number] 1{tbl} Take 1 tablet by mouth every 6 (six) hours as needed for Pain (scale 4-6). Indication s: chronic pain [facility] clonazePAM 2 mg tablet 04-12 00:00: 00 04-14 00:00 :00 No [id number] TAKE ONE (1) TABLET(S) BY MOUTH EVERY MORNING AND EVENING. [facility] ketorolac (TORADOL) injection 15 mg 04-08 19:00: 00 04-08 18:50 :00 No 15mg 15 mg, Intramuscu lar, ONCE NOW, 1 dose, On Jania 04/08/24 at 1400, Routine [facility] atorvastati n 20 mg tablet 514 00:00: 00 Yes [id number] 20mg Take 1 tablet by mouth in the morning. [facility] losartan 100 mg tablet 03-22 00:00: 00 Yes [id number] 100mg Take 1 tablet by mouth in the morning. [facility] albuterol 90 mcg/actuati on inhaler 03-18 00:00: 00 Yes [id number] INHALE 2 PUFFS BY MOUTH EVERY 4 HOURS NEEDED FOR WHEEZING [facility] lactulose 10 gram/15 mL solution 03-18 00:00: 00 Yes [id number] TAKE 15 ML BY MOUTH EVERY DAY NEEDED FOR CONSTIPATI ON [facility] potassium chloride 10 mEq CR tablet 03-15 00:00: 00 Yes [id number] 10meq Take 1 tablet by mouth in the morning. [facility] clonazePAM 2 mg tablet 03-15 00:00: 00 04-12 00:00 :00 No [id number] TAKE ONE (1) TABLET(S) BY MOUTH EVERY MORNING AND EVENING. [facility] HYDROcodone -acetaminop hen 10-325 mg tablet 03-15 00:00: 00 04-12 00:00 :00 No [id number] 1{tbl} Take 1 tablet by mouth every 6 (six) hours as needed for Pain (scale 4-6). Indication s: chronic pain [facility] HYDROcodone -acetaminop hen 10-325 mg tablet 3-20 00:00: 00 03-15 00:00 :00 No [id number] 1{tbl} Take 1 tablet by mouth every 6 (six) hours as needed for Pain (scale 4-6). Indication s: chronic pain [facility] pantoprazol e 20 mg EC tablet 2-21 00:00: 00 Yes [id number] 20mg Take 1 tablet by mouth in the morning. [facility] venlafaxine 75 mg tablet 01-14 00:00: 00 08-06 00:00 :00 No [id number] 75mg Take 1 tablet by mouth in the morning and 1 tablet in the evening. [facility] traZODone 50 mg tablet 01-14 00:00: 00 04-12 00:00 :00 No [id number] 25mg Take 0.5 tablets by mouth at bedtime. [facility] HYDROcodone -acetaminop hen 10-325 mg tablet 01-14 00:00: 00 02-10 00:00 :00 No [id number] 1{tbl} Take 1 tablet by mouth every 6 (six) hours as needed for Pain (scale 4-6). Indication s: chronic pain [facility] lactulose 10 gram/15 mL solution 12-15 00:00: 00 03-18 00:00 :00 No [id number] TAKE 15 ML BY MOUTH EVERY DAY NEEDED FOR CONSTIPATI ON [facility] HYDROcodone -acetaminop hen 10-325 mg tablet 12-15 00:00: 00 01-14 00:00 :00 No [id number] 1{tbl} Take 1 tablet by mouth every 6 (six) hours as needed for Pain (scale 4-6). Indication s: chronic pain [facility] hydroCHLORO thiazide 25 mg tablet 2022-11 00:00: 00 Yes [id number] 25mg Take 1 tablet by mouth in the morning. [facility] amLODIPine (NORVASC) 10 mg tablet 2022-11 00:00: 00 04-12 00:00 :00 No [id number] 10mg Take 1 tablet by mouth in the morning. [facility] atorvastati n 20 mg tablet 2022-11 00:00: 00 04-06 00:00 :00 No [id number] 20mg Take 1 tablet by mouth in the morning. [facility] HYDROcodone -acetaminop hen 10-325 mg tablet 2022-11 00:00: 00 12-15 00:00 :00 No [id number] 1{tbl} Take 1 tablet by mouth every 6 (six) hours as needed for Pain (scale 4-6). Indication s: chronic pain [facility] HYDROcodone -acetaminop hen 10-325 mg tablet 2022-11 00:00: 00 11-12 00:00 :00 No [id number] 1{tbl} Take 1 tablet by mouth every 6 (six) hours as needed for Pain (scale 4-6). Indication s: chronic pain [facility] HYDROcodone -acetaminop hen 10-325 mg tablet 2022-11 00:00: 00 10-10 00:00 :00 No [id number] 1{tbl} Take 1 tablet by mouth every 6 (six) hours as needed for Pain (scale 4-6). Indication s: chronic pain [facility] budesonide- formoteroL (SYMBICORT) 160-4.5 mcg/actuati on inhaler 2022-11 00:00: 00 Yes [id number] 2{puff} Inhale 2 Puffs in the morning and 2 Puffs in the evening. [facility] albuterol 90 mcg/actuati on inhaler 2022-11 00:00: 00 03-18 00:00 :00 No [id number] INHALE 2 PUFFS BY MOUTH EVERY 4 HOURS NEEDED FOR WHEEZING [facility] clonazePAM 2 mg tablet 2022-11 00:00: 00 03-15 00:00 :00 No [id number] 2mg Take 1 tablet by mouth every morning and evening. [facility] hydroCHLORO thiazide 25 mg tablet 2022-11 00:00: 00 11-12 00:00 :00 No [id number] 25mg Take 1 tablet by mouth in the morning. [facility] atorvastati n 20 mg tablet 2022-11 00:00: 00 11-12 00:00 :00 No [id number] 20mg Take 1 tablet by mouth in the morning. [facility] amLODIPine (NORVASC) 10 mg tablet 2022-11 00:00: 00 11-12 00:00 :00 No [id number] 10mg Take 1 tablet by mouth in the morning. [facility] LACTULOSE 10 gram/15 mL solution 2022-11 00:00: 00 12-15 00:00 :00 No [id number] TAKE 15 ML BY MOUTH EVERY DAY NEEDED FOR CONSTIPATI ON [facility] HYDROcodone -acetaminop hen 10-325 mg tablet 2022-11 00:00: 00 10-09 00:00 :00 No [id number] 1{tbl} Take 1 tablet by mouth every 6 (six) hours as needed for Pain (scale 4-6). Indication s: chronic pain [facility] hydroCHLORO thiazide 25 mg tablet 2022-11 00:00: 00 10-02 00:00 :00 No [id number] 25mg Take 1 tablet by mouth in the morning. [facility] HYDROcodone -acetaminop hen 10-325 mg tablet 2022-11 00:00: 00 09-10 00:00 :00 No [id number] 1{tbl} Take 1 tablet by mouth every 6 (six) hours as needed for Pain (scale 4-6). Indication s: chronic pain [facility] CLONAZEPAM 2 mg tablet 08-18 00:00: 00 10-02 00:00 :00 No [id number] 2mg TAKE 1 TABLET BY MOUTH IN THE MORNING AND IN THE EVENING [facility] atorvastati n 20 mg tablet 08-11 00:00: 00 10-02 00:00 :00 No [id number] 20mg Take 1 tablet by mouth in the morning. [facility] azithromyci n 250 mg tablet 08-06 00:00: 00 Yes [id number] 250mg Take 1 tablet by mouth in the morning. Take 500 mg day 1, then 250 mg days 2 to 5. [facility] venlafaxine 75 mg tablet 08-06 00:00: 00 01-14 00:00 :00 No [id number] 75mg Take 1 tablet by mouth in the morning and 1 tablet in the evening. [facility] HYDROcodone -acetaminop hen 10-325 mg tablet 9-13 00:00: 00 09-04 00:00 :00 No [id number] 1{tbl} Take 1 tablet by mouth every 6 (six) hours as needed for Pain (scale 4-6). Indication s: chronic pain [facility] HYDROcodone -acetaminop hen 10-325 mg tablet 8-16 00:00: 00 08-06 00:00 :00 No [id number] 1{tbl} Take 1 tablet by mouth every 6 (six) hours as needed for Pain (scale 4-6). Indication s: chronic pain [facility] SYMBICORT 160-4.5 mcg/actuati on inhaler 06-24 00:00: 00 10-02 00:00 :00 No [id number] 2{puff} Inhale 2 Puffs in the morning and 2 Puffs in the evening. [facility] budesonide- formoteroL (SYMBICORT) 160-4.5 mcg/actuati on inhaler 06-20 00:00: 00 06-24 00:00 :00 No [id number] 2{puff} Inhale 2 Puffs in the morning and 2 Puffs in the evening. [facility] losartan 100 mg tablet 06-09 00:00: 00 03-20 00:00 :00 No [id number] 100mg Take 1 tablet by mouth in the morning. [facility] pantoprazol e 20 mg EC tablet 06-09 00:00: 00 01-14 00:00 :00 No [id number] 20mg Take 1 tablet by mouth in the morning. [facility] albuterol 90 mcg/actuati on inhaler 06-09 00:00: 00 10-02 00:00 :00 No [id number] INHALE 2 PUFFS BY MOUTH EVERY 4 HOURS NEEDED FOR WHEEZING [facility] lactulose 10 gram/15 mL solution 06-09 00:00: 00 09-11 00:00 :00 No [id number] TAKE 15 ML BY MOUTH EVERY DAY NEEDED FOR CONSTIPATI ON [facility] hydroCHLORO thiazide 25 mg tablet 06-09 00:00: 00 09-08 00:00 :00 No [id number] 25mg Take 1 tablet by mouth in the morning. [facility] venlafaxine 75 mg tablet 06-09 00:00: 00 08-06 00:00 :00 No [id number] 75mg Take 1 tablet by mouth in the morning and 1 tablet in the evening. [facility] HYDROcodone -acetaminop hen 10-325 mg tablet 06-09 00:00: 00 07-09 00:00 :00 No [id number] 1{tbl} Take 1 tablet by mouth every 6 (six) hours as needed for Pain (scale 4-6). Indication s: chronic pain [facility] CLONAZEPAM 2 mg tablet 05-28 00:00: 00 08-18 00:00 :00 No [id number] NEED ESCRIPT TAKE ONE TABLET BY MOUTH TWICE DAILY @ 9AM & 5PM [facility] triamcinolo ne acetonide (KENALOG) injection 40 mg 05-22 16:15: 00 05-22 15:05 :00 No [id number] 40mg [facility] fluconazole (DIFLUCAN) 150 mg tablet 04-19 00:00: 00 Yes [id number] Take one tablet; wait 72 hours and take 2nd tablet; wait 72 hours and take 3rd tablet. [facility] cefdinir 300 mg capsule 04-15 00:00: 00 04-26 04:59 :00 No [id number] 600mg Take 2 capsules by mouth in the morning for 10 days. [facility] dexAMETHaso ne (DECADRON) tablet 8 mg 04-10 03:15: 00 04-10 02:36 :00 No 8mg 8 mg, Oral, ONCE NOW, 1 dose, On Fri04/09/23 at 2215, Routine [facility] meloxicam 7.5 mg tablet 16 00:00: 00 Yes [id number] 7.5mg Take 1 tablet by mouth in the morning. [facility] HYDROcodone -acetaminop hen 10-325 mg tablet 03-26 00:00: 00 06-09 00:00 :00 No [id number] 1{tbl} Take 1 tablet by mouth every 6 (six) hours as needed for Pain (scale 4-6). Indication s: chronic pain [facility] albuterol 90 mcg/actuati on inhaler 03-26 00:00: 00 06-09 00:00 :00 No [id number] INHALE 2 PUFFS BY MOUTH EVERY 4 HOURS NEEDED FOR WHEEZING [facility] lactulose 10 gram/15 mL solution 03-26 00:00: 00 06-09 00:00 :00 No [id number] TAKE 15 ML BY MOUTH EVERY DAY NEEDED FOR CONSTIPATI ON [facility] sulfamethox azole-trime thoprim (BACTRIM DS) 800-160 mg per tablet 03-05 00:00: 00 Yes [id number] 1{tbl} Take 1 tablet by mouth in the morning and 1 tablet in the evening. [facility] HYDROcodone -acetaminop hen 10-325 mg tablet 12 00:00: 00 03-26 00:00 :00 No [id number] 1{tbl} Take 1 tablet by mouth every 6 (six) hours as needed for Pain (scale 4-6). Indication s: chronic pain [facility] clonazePAM 2 mg tablet - 00:00: 00 05-28 00:00 :00 No [id number] 2mg Take 1 tablet by mouth in the morning and 1 tablet in the evening. [facility] albuterol 90 mcg/actuati on inhaler 4- 00:00: 00 03-26 00:00 :00 No [id number] INHALE 2 PUFFS BY MOUTH EVERY 4 HOURS NEEDED FOR WHEEZING [facility] triamcinolo ne acetonide (KENALOG) injection 40 mg 02-27 05:00: 00 02-27 16:59 :00 No [id number] 40mg [facility] hydroCHLORO thiazide 25 mg tablet 02-24 00:00: 00 06-09 00:00 :00 No [id number] 25mg Take 1 tablet by mouth in the morning. [facility] ketorolac (TORADOL) injection 30 mg 02-19 18:15: 00 02-19 19:08 :00 No 30mg 30 mg, Intramuscu lar, ONCE, 1 dose, On Fri02/19/23 at 1315, Routine [facility] dexamethaso ne (DECADRON PHOSPHATE) injection 10 mg 02-19 18:15: 00 02-19 18:15 :00 No 10mg 10 mg, Oral, ONCE, 1 dose, On Fri02/19/23 at 1315, Routine [facility] methocarbam oL (ROBAXIN) tablet 1,500 mg 02-19 17:15: 00 02-19 19:07 :00 No 1500mg 1,500 mg, Oral, ONCE, 1 dose, On Fri02/19/23 at 1215, QAMAR [facility] ketorolac 10 mg tablet 02-19 00:00: 00 04-08 00:00 :00 No [id number] 10mg Take 1 tablet by mouth every 6 (six) hours as needed for Pain (scale 7-10). [facility] methocarbam oL 500 mg tablet 02-19 00:00: 00 02-27 04:59 :00 No [id number] 500mg Take 1 tablet by mouth 4 (four) times daily for 7 days. [facility] ibuprofen 800 mg tablet 3-13 00:00: 00 Yes [id number] 800mg Take 1 tablet by mouth every 6 (six) hours as needed for Pain (scale 4-6). [facility] HYDROcodone -acetaminop hen 10-325 mg tablet 3-13 00:00: 00 03-05 00:00 :00 No [id number] 1{tbl} Take 1 tablet by mouth every 6 (six) hours as needed for Pain (scale 4-6). Indication s: chronic pain [facility] LOSARTAN 100 mg tablet 3-07 00:00: 00 06-09 00:00 :00 No [id number] 100mg TAKE 1 TABLET BY MOUTH IN THE MORNING [facility] pantoprazol e 20 mg EC tablet 2- 00:00: 00 06-09 00:00 :00 No [id number] 20mg Take 1 tablet by mouth in the morning. [facility] albuterol 90 mcg/actuati on inhaler 2- 00:00: 00 03-04 00:00 :00 No [id number] INHALE 2 PUFFS BY MOUTH EVERY 4 HOURS NEEDED FOR WHEEZING [facility] HYDROcodone -acetaminop hen 10-325 mg tablet 2-06 00:00: 00 02-03 00:00 :00 No [id number] 1{tbl} Take 1 tablet by mouth every 6 (six) hours as needed for Pain (scale 4-6). Indication s: chronic pain [facility] ibuprofen 800 mg tablet 2-06 00:00: 00 02-03 00:00 :00 No [id number] 800mg Take 1 tablet by mouth every 6 (six) hours as needed for Pain (scale 4-6). [facility] pantoprazol e 20 mg EC tablet 2-06 00:00: 00 12-31 00:00 :00 No [id number] 20mg Take 1 tablet by mouth in the morning. [facility] albuterol 90 mcg/actuati on inhaler 1-04 00:00: 00 12-30 00:00 :00 No [id number] INHALE 2 PUFFS BY MOUTH EVERY 4 HOURS NEEDED FOR WHEEZING [facility] HYDROcodone -acetaminop hen 10-325 mg tablet 1- 00:00: 00 12-30 00:00 :00 No [id number] 1{tbl} Take 1 tablet by mouth every 6 (six) hours as needed for Pain (scale 4-6) for up to 7 days. Indication s: chronic pain [facility] amLODIPine (NORVASC) 10 mg tablet 2021-11 00:00: 00 10-02 00:00 :00 No [id number] 10mg Take 1 tablet by mouth in the morning. [facility] lactulose 10 gram/15 mL solution 2021-11 2 00:00: 00 03-26 00:00 :00 No TAKE 15 ML BY MOUTH EVERY DAY NEEDED FOR CONSTIPATI ON [facility] HYDROcodone -acetaminop hen 10-325 mg tablet 2021-11 2 00:00: 00 11-05 05:59 :00 No [id number] 1{tbl} Take 1 tablet by mouth every 6 (six) hours as needed for Pain (scale 4-6) for up to 7 days. Indication s: chronic pain [facility] amLODIPine (NORVASC) 5 mg tablet 2021-11 2- 00:00: 00 10-30 00:00 :00 No [id number] 5mg Take 1 tablet by mouth in the morning. [facility] albuterol 90 mcg/actuati on inhaler 2021-11- 00:00: 00 11-27 00:00 :00 No [id number] INHALE 2 PUFFS BY MOUTH EVERY 4 HOURS NEEDED FOR WHEEZING [facility] HYDROcodone -acetaminop hen 7.5-325 mg per tablet 2021-11- 00:00: 00 10-03 05:59 :00 No [id number] 1{tbl} Take 1 tablet by mouth every 6 (six) hours as needed for Pain for up to 7 days. Indication s: chronic pain [facility] venlafaxine 75 mg tablet 2021-11 0-10 00:00: 00 06-09 00:00 :00 No [id number] 75mg Take 1 tablet by mouth in the morning and 1 tablet in the evening. [facility] clonazePAM 2 mg tablet 2021-11 00:00: 00 03-04 00:00 :00 No [id number] 2mg Take 1 tablet by mouth in the morning and 1 tablet in the evening. [facility] pantoprazol e 20 mg EC tablet 2021-11 00:00: 00 12-30 00:00 :00 No [id number] 20mg Take 1 tablet by mouth in the morning. [facility] albuterol 90 mcg/actuati on inhaler 2021-11 00:00: 00 09-25 00:00 :00 No [id number] INHALE 2 PUFFS BY MOUTH EVERY 4 HOURS NEEDED FOR WHEEZING [facility] HYDROcodone -acetaminop hen 7.5-325 mg per tablet 2021-11 00:00: 00 09-10 04:59 :00 No [id number] 1{tbl} Take 1 tablet by mouth every 8 (eight) hours as needed for Pain for up to 7 days. Indication s: chronic pain [facility] NaCl 0.9% (NS) IV infusion 1,000 mL 2021-11 17:45: 00 09-01 18:21 :00 No 1000mL at 999 mL/hr, Intravenou s, ONCE, 1 dose, On 09/01/22 at 1245, QAMAR [facility] cloNIDine (CATAPRES) tablet 0.1 mg 2021-11 17:30: 00 09-01 17:21 :00 No .1mg 0.1 mg, Oral, ONCE, 1 dose, On 09/01/22 at 1230, STAT [facility] LORazepam (ATIVAN) tablet 2 mg 2021-11 16:30: 00 09-01 17:11 :00 No 2mg 2 mg, Oral, ONCE, 1 dose, On 09/01/22 at 1130, QAMAR [facility] iopamidol (ISOVUE 370-500 mL) injection 80 mL 2021-11 15:45: 00 09-01 16:00 :00 No [id number] 80mL 80 mL, Intravenou s, ONCE, 1 dose, On Fri09/01/22 at 1100, Routine [facility] ondansetron (ZOFRAN (PF)) injection 4 mg 2021-11 14:30: 00 09-01 14:21 :00 No 4mg 4 mg, Slow IV Push, ONCE, 1 dose, On Fri09/01/22 at 0930, QAMAR [facility] morpHINE (4 mg/mL) injection 4 mg 2021-11 14:30: 00 09-01 14:22 :00 No 4mg 4 mg, Slow IV Push, ONCE, 1 dose, On 09/01/22 at 0930, STAT [facility] HYDROcodone -acetaminop hen 7.5-325 mg per tablet 08-07 00:00: 00 08-15 04:59 :00 No [id number] 1{tbl} Take 1 tablet by mouth every 6 (six) hours as needed for Pain for up to 7 days. Indication s: chronic pain [facility] budesonide/ formoterol fumarate (SYMBICORT INHALE) 07-03 15:39: 24 07-03 00:00 :00 No Inhale. [facility] temazepam 15 mg capsule 07-03 15:36: 31 07-03 00:00 :00 No 15mg Take 15 mg by mouth at bedtime as needed for Insomnia. [facility] Venlafaxine 225 mg TR24 07-03 15:34: 06 07-03 00:00 :00 No 75mg Take 75 mg by mouth every morning. [facility] losartan 100 mg tablet 07-03 00:00: 00 01-28 00:00 :00 No [id number] 100mg Take 1 tablet by mouth in the morning. [facility] venlafaxine 75 mg tablet 07-03 00:00: 00 09-02 00:00 :00 No [id number] 75mg Take 1 tablet by mouth in the morning and 1 tablet in the evening. [facility] pantoprazol e 20 mg EC tablet 07-03 00:00: 00 09-02 00:00 :00 No [id number] 20mg Take 1 tablet by mouth in the morning. [facility] clonazePAM 2 mg tablet 07-03 00:00: 09-02 00:00 :00 No [id number] 2mg Take 1 tablet by mouth in the morning and 1 tablet in the evening. [facility] albuterol 90 mcg/actuati on inhaler 07-03 00:00: 00 09-02 00:00 :00 No [id number] INHALE 2 PUFFS BY MOUTH EVERY 4 HOURS NEEDED FOR WHEEZING [facility] HYDROcodone -acetaminop hen 7.5-325 mg per tablet 07-03 00:00: 00 07-11 04:59 :00 No [id number] 1{tbl} Take 1 tablet by mouth every 8 (eight) hours as needed for Pain for up to 7 days. Indication s: chronic pain [facility] ALBUTEROL 90 mcg/actuati on inhaler 5-17 00:00: 00 07-03 00:00 :00 No [id number] INHALE 2 PUFFS BY MOUTH EVERY 4 HOURS NEEDED FOR WHEEZING [facility] acetaminoph en-codeine (TYLENOL-CO DEINE #3) 300-30 mg tablet 4-21 00:00: 00 07-03 00:00 :00 No [id number] 1{tbl} Take 1 tablet by mouth every 4 (four) hours as needed for Pain (scale 4-6) or Pain (scale 7-10). Indication s: acute pain [facility] traMADoL 50 mg tablet 4-14 00:00: 00 07-03 00:00 :00 No [id number] 50mg Take 1 tablet by mouth every 4 (four) hours as needed for Pain (scale 7-10). Indication s: acute pain [facility] pentazocine -naloxone 50-0.5 mg tablet 4-11 00:00: 00 07-03 00:00 :00 No [id number] 1{tbl} Take 1 tablet by mouth every 4 (four) hours as needed for Pain. Indication s: acute pain [facility] diclofenac 75 mg EC tablet 2020-11 2-16 00:00: 00 12-30 00:00 :00 No [id number] 75mg Take 1 tablet by mouth 2 (two) times daily with meals. [facility] traMADoL 50 mg tablet 2020-11 2-09 00:00: 00 07-03 00:00 :00 No [id number] 50mg Take 1 tablet by mouth every 4 (four) hours as needed for Pain (scale 7-10). Indication s: acute pain [facility] METOPROLOL SUCCINATE XL 25 mg 24 hr tablet 2020-11 1-30 00:00: 00 07-03 00:00 :00 No TAKE 1 TABLET BY MOUTH TWICE DAILY [facility] budesonide- formoteroL (SYMBICORT) 160-4.5 mcg/actuati on inhaler 2020-11 0-13 00:00: 00 07-03 00:00 :00 No [id number] 2{puff} Inhale 2 Puffs 2 (two) times daily. [facility] pantoprazol e 20 mg EC tablet 2020-11 0-13 00:00: 00 07-03 00:00 :00 No [id number] 20mg Take 1 tablet by mouth daily. [facility] losartan 100 mg tablet 2020-11 0-13 00:00: 00 07-03 00:00 :00 No [id number] 100mg Take 1 tablet by mouth daily. [facility] Diclofenac Sodium (VOLTAREN) 1 % gel 2020-11 0-07 00:00: 00 07-03 00:00 :00 No [id number] Apply to area(s) 2 (two) times daily. [facility] OLANZapine 10 mg tablet 9-29 00:00: 00 07-03 00:00 :00 No 10mg Take 10 mg by mouth every morning. [facility] ARIPiprazol e 2 mg tablet 0 6-12 00:00: 00 07-03 00:00 :00 No [facility] clonazePAM 2 mg tablet 0 5-05 00:00: 00 07-03 00:00 :00 No [facility] Vital Signs Vital Name Observation Time Observation Value Comments [facility] Systolic blood pressure 2024-09-08 20:13:00 152 mm[Hg] [facility] Diastolic blood pressure 2024-09-08 20:13:00 99 mm[Hg] [facility] Heart rate 2024-09-08 20:13:00 83 /min [facility] Body height 2024-09-08 20:13:00 154.9 cm [facility] Body weight 2024-09-08 20:13:00 75.796 kg [facility] BMI 2024-09-08 20:13:00 31.57 kg/m2 [facility] Oxygen saturation in Arterial blood by Pulse oximetry 2024-09-08 20:13:00 99 /min [facility] Systolic blood pressure 2024-09-08 18:44:00 133 mm[Hg] [facility] Diastolic blood pressure 2024-09-08 18:44:00 85 mm[Hg] [facility] Heart rate 2024-09-08 18:44:00 88 /min [facility] Body height 2024-09-08 18:44:00 154.9 cm [facility] Body weight 2024-09-08 18:44:00 74.844 kg [facility] BMI 2024-09-08 18:44:00 31.18 kg/m2 [facility] Oxygen saturation in Arterial blood by Pulse oximetry 2024-09-08 18:44:00 98 /min [facility] Systolic blood pressure 2024-08-27 14:21:00 137 mm[Hg] [facility] Diastolic blood pressure 2024-08-27 14:21:00 82 mm[Hg] [facility] Heart rate 2024-08-27 14:21:00 94 /min [facility] Respiratory rate 2024-08-27 14:21:00 18 /min [facility] Body height 2024-08-27 14:21:00 154.9 cm [facility] Body weight 2024-08-27 14:21:00 73.029 kg [facility] BMI 2024-08-27 14:21:00 30.42 kg/m2 [facility] Oxygen saturation in Arterial blood by Pulse oximetry 2024-08-27 14:21:00 95 /min [facility] Systolic blood pressure 2024-08-22 02:32:00 137 mm[Hg] [facility] Diastolic blood pressure 2024-08-22 02:32:00 85 mm[Hg] [facility] Heart rate 2024-08-22 02:32:00 91 /min [facility] Body temperature 2024-08-22 02:32:00 37.28 [place] [facility] Respiratory rate 2024-08-22 02:32:00 16 /min [facility] Oxygen saturation in Arterial blood by Pulse oximetry 2024-08-22 02:32:00 96 /min [facility] Body height 2024-08-22 00:10:00 154.9 cm [facility] Body weight 2024-08-22 00:10:00 68.04 kg [facility] BMI 2024-08-22 00:10:00 28.34 kg/m2 [facility] Systolic blood pressure 2024-08-16 14:21:00 143 mm[Hg] [facility] Diastolic blood pressure 2024-08-16 14:21:00 85 mm[Hg] [facility] Heart rate 2024-08-16 14:20:00 95 /min [facility] Body height 2024-08-16 14:20:00 154.9 cm Univ [facility] Body weight 2024-08-16 14:20:00 78.019 kg [facility] BMI 2024-08-16 14:20:00 32.50 kg/m2 [facility] Oxygen saturation in Arterial blood by Pulse oximetry 2024-08-16 14:20:00 96 /min [facility] Systolic blood pressure 2024-08-09 14:37:00 134 mm[Hg] [facility] Diastolic blood pressure 2024-08-09 14:37:00 83 mm[Hg] [facility] Heart rate 2024-08-09 14:37:00 83 /min [facility] Oxygen saturation in Arterial blood by Pulse oximetry 2024-08-09 14:37:00 98 /min [facility] Respiratory rate 2024-08-09 14:35:00 16 /min [facility] Body height 2024-08-09 14:35:00 154.9 cm [facility] Body weight 2024-08-09 14:35:00 74.617 kg [facility] BMI 2024-08-09 14:35:00 31.08 kg/m2 [facility] Systolic blood pressure 2024-07-15 13:43:00 137 mm[Hg] [facility] Diastolic blood pressure 2024-07-15 13:43:00 86 mm[Hg] [facility] Heart rate 2024-07-15 13:42:00 92 /min [facility] Body height 2024-07-15 13:42:00 154.9 cm Univ [facility] Body weight 2024-07-15 13:42:00 74.481 kg [facility] BMI 2024-07-15 13:42:00 31.03 kg/m2 [facility] Oxygen saturation in Arterial blood by Pulse oximetry 2024-07-15 13:42:00 100 /min [facility] Systolic blood pressure 2024-06-18 14:26:00 132 mm[Hg] [facility] Diastolic blood pressure 2024-06-18 14:26:00 86 mm[Hg] [facility] Heart rate 2024-06-18 14:25:00 102 /min [facility] Body height 2024-06-18 14:25:00 154.9 cm [facility] Body weight 2024-06-18 14:25:00 71.215 kg [facility] BMI 2024-06-18 14:25:00 29.66 kg/m2 Univ [facility] Systolic blood pressure 2024-06-14 14:33:00 137 mm[Hg] [facility] Diastolic blood pressure 2024-06-14 14:33:00 84 mm[Hg] [facility] Heart rate 2024-06-14 14:33:00 90 /min [facility] Body height 2024-06-14 14:33:00 154.9 cm [facility] Body weight 2024-06-14 14:33:00 72.167 kg [facility] BMI 2024-06-14 14:33:00 30.06 kg/m2 [facility] Oxygen saturation in Arterial blood by Pulse oximetry 2024-06-14 14:33:00 95 /min [facility] Systolic blood pressure 2024-05-11 15:38:00 129 mm[Hg] [facility] Diastolic blood pressure 2024-05-11 15:38:00 85 mm[Hg] [facility] Heart rate 2024-05-11 15:38:00 75 /min [facility] Respiratory rate 2024-05-11 15:38:00 20 /min [facility] Body height 2024-05-11 15:38:00 154.9 cm [facility] Body weight 2024-05-11 15:38:00 70.761 kg [facility] BMI 2024-05-11 15:38:00 29.48 kg/m2 [facility] Oxygen saturation in Arterial blood by Pulse oximetry 2024-05-11 15:38:00 98 /min [facility] Systolic blood pressure 2024-04-28 17:32:00 150 mm[Hg] [facility] Diastolic blood pressure 2024-04-28 17:32:00 90 mm[Hg] [facility] Heart rate 2024-04-28 17:18:00 92 /min [facility] Body height 2024-04-28 17:18:00 154.9 cm [facility] Body weight 2024-04-28 17:18:00 73.165 kg [facility] BMI 2024-04-28 17:18:00 30.48 kg/m2 Univ [facility] Oxygen saturation in Arterial blood by Pulse oximetry 2024-04-28 17:18:00 98 /min [facility] Systolic blood pressure 2024-04-12 17:06:00 139 mm[Hg] [facility] Diastolic blood pressure 2024-04-12 17:06:00 89 mm[Hg] [facility] Heart rate 2024-04-12 17:06:00 77 /min [facility] Body height 2024-04-12 17:06:00 154.9 cm Univ [facility] Body weight 2024-04-12 17:06:00 75.615 kg [facility] BMI 2024-04-12 17:06:00 31.50 kg/m2 [facility] Oxygen saturation in Arterial blood by Pulse oximetry 2024-04-12 17:06:00 98 /min [facility] Systolic blood pressure 2024-04-08 18:21:30 114 mm[Hg] [facility] Diastolic blood pressure 2024-04-08 18:21:30 75 mm[Hg] [facility] Heart rate 2024-04-08 18:21:30 67 /min [facility] Respiratory rate 2024-04-08 18:21:30 16 /min [facility] Oxygen saturation in Arterial blood by Pulse oximetry 2024-04-08 18:21:30 95 /min [facility] Body temperature 2024-04-08 16:32:00 37 [place] [facility] Body height 2024-04-08 16:32:00 154.9 cm Univ [facility] Body weight 2024-04-08 16:32:00 75.751 kg [facility] BMI 2024-04-08 16:32:00 31.55 kg/m2 Univ [facility] Systolic blood pressure 2024-03-18 15:45:00 155 mm[Hg] [facility] Diastolic blood pressure 2024-03-18 15:45:00 93 mm[Hg] [facility] Heart rate 2024-03-18 15:44:00 100 /min [facility] Body height 2024-03-18 15:44:00 154.9 cm [facility] Body weight 2024-03-18 15:44:00 78.472 kg Univ [facility] BMI 2024-03-18 15:44:00 32.69 kg/m2 Univ [facility] Oxygen saturation in Arterial blood by Pulse oximetry 2024-03-18 15:44:00 97 /min [facility] Heart rate 2024-03-15 18:12:00 100 /min [facility] Body height 2024-03-15 18:12:00 154.9 cm Univ [facility] Body weight 2024-03-15 18:12:00 77.474 kg Univ [facility] BMI 2024-03-15 18:12:00 32.27 kg/m2 Univ [facility] Oxygen saturation in Arterial blood by Pulse oximetry 2024-03-15 18:12:00 97 /min [facility] Systolic blood pressure 2024-03-15 18:12:00 140 mm[Hg] [facility] Diastolic blood pressure 2024-03-15 18:12:00 80 mm[Hg] [facility] Systolic blood pressure 2024-01-14 16:06:00 137 mm[Hg] [facility] Diastolic blood pressure 2024-01-14 16:06:00 85 mm[Hg] [facility] Heart rate 2024-01-14 16:05:00 92 /min [facility] Body height 2024-01-14 16:05:00 154.9 cm [facility] Body weight 2024-01-14 16:05:00 86.093 kg Univ [facility] BMI 2024-01-14 16:05:00 35.86 kg/m2 Univ [facility] Oxygen saturation in Arterial blood by Pulse oximetry 2024-01-14 16:05:00 94 /min [facility] Systolic blood pressure 2023-12-15 15:19:00 139 mm[Hg] [facility] Diastolic blood pressure 2023-12-15 15:19:00 89 mm[Hg] [facility] Heart rate 2023-12-15 15:19:00 102 /min [facility] Respiratory rate 2023-12-15 15:19:00 18 /min [facility] Body height 2023-12-15 15:19:00 154.9 cm Univ [facility] Body weight 2023-12-15 15:19:00 86.501 kg Univ [facility] BMI 2023-12-15 15:19:00 36.03 kg/m2 [facility] Oxygen saturation in Arterial blood by Pulse oximetry 2023-12-15 15:19:00 94 /min [facility] Systolic blood pressure 2023-11-12 15:54:00 124 mm[Hg] [facility] Diastolic blood pressure 2023-11-12 15:54:00 86 mm[Hg] [facility] Heart rate 2023-11-12 15:54:00 96 /min [facility] Body height 2023-11-12 15:54:00 157.5 cm [facility] Body weight 2023-11-12 15:54:00 84.641 kg Univ [facility] [place] BMI 2023-11-12 15:54:00 34.13 kg/m2 [facility] Oxygen saturation in Arterial blood by Pulse oximetry 2023-11-12 15:54:00 96 /min [facility] Systolic blood pressure 2023-10-02 18:23:00 163 mm[Hg] [facility] Diastolic blood pressure 2023-10-02 18:23:00 100 mm[Hg] [facility] [place] Heart rate 2023-10-02 18:22:00 96 /min [facility] Respiratory rate 2023-10-02 18:22:00 18 /min [facility] Body height 2023-10-02 18:22:00 154.9 cm [facility] Body weight 2023-10-02 18:22:00 90.81 kg Univ [facility] BMI 2023-10-02 18:22:00 37.83 kg/m2 [facility] Oxygen saturation in Arterial blood by Pulse oximetry 2023-10-02 18:22:00 97 /min [facility] Systolic blood pressure 2023-09-29 08:11:00 136 mm[Hg] [facility] Diastolic blood pressure 2023-09-29 08:11:00 90 mm[Hg] [facility] Heart rate 2023-09-29 08:11:00 87 /min [facility] Body temperature 2023-09-29 08:11:00 36.72 [place] [facility] Respiratory rate 2023-09-29 08:11:00 20 /min [facility] Body height 2023-09-29 08:11:00 154.9 cm Univ [facility] Body weight 2023-09-29 08:11:00 87.091 kg Univ [facility] BMI 2023-09-29 08:11:00 36.28 kg/m2 Univ [facility] Oxygen saturation in Arterial blood by Pulse oximetry 2023-09-29 08:11:00 94 /min [facility] Systolic blood pressure 2023-09-04 15:33:00 132 mm[Hg] [facility] Diastolic blood pressure 2023-09-04 15:33:00 77 mm[Hg] [facility] Heart rate 2023-09-04 15:33:00 94 /min [facility] Body temperature 2023-09-04 15:33:00 36.28 [place] [facility] Body height 2023-09-04 15:33:00 154.9 cm [facility] Body weight 2023-09-04 15:33:00 87.317 kg [facility] BMI 2023-09-04 15:33:00 36.37 kg/m2 [facility] Oxygen saturation in Arterial blood by Pulse oximetry 2023-09-04 15:33:00 95 /min [facility] Systolic blood pressure 2023-08-11 15:56:00 131 mm[Hg] [facility] Diastolic blood pressure 2023-08-11 15:56:00 86 mm[Hg] [facility] Heart rate 2023-08-11 15:56:00 101 /min [facility] Body temperature 2023-08-11 15:56:00 35.56 [place] [facility] Respiratory rate 2023-08-11 15:56:00 19 /min [facility] Body height 2023-08-11 15:56:00 154.9 cm [facility] Body weight 2023-08-11 15:56:00 88.95 kg [facility] BMI 2023-08-11 15:56:00 37.05 kg/m2 [facility] Oxygen saturation in Arterial blood by Pulse oximetry 2023-08-11 15:56:00 93 /min [facility] Systolic blood pressure 2023-08-06 15:14:00 132 mm[Hg] [facility] Diastolic blood pressure 2023-08-06 15:14:00 78 mm[Hg] [facility] Heart rate 2023-08-06 15:13:00 91 /[facility] Res[facility] rate 2023-08-06 15:13:00 18 /min [facility] Body height 2023-08-06 15:13:00 154.9 cm [facility] Body weight 2023-08-06 15:13:00 87.862 kg [facility] BMI 2023-08-06 15:13:00 36.60 kg/m2 [facility] Oxygen saturation in Arterial blood by Pulse oximetry 2023-08-06 15:13:00 96 /min [facility] Systolic blood pressure 2023-07-09 20:14:00 139 mm[Hg] [facility] Diastolic blood pressure 2023-07-09 20:14:00 85 mm[Hg] [facility] Heart rate 2023-07-09 20:14:00 96 /min [facility] Body height 2023-07-09 20:14:00 154.9 cm [facility] Body weight 2023-07-09 20:14:00 80.74 kg Univ [facility] BMI 2023-07-09 20:14:00 33.63 kg/m2 Univ [facility] Oxygen saturation in Arterial blood by Pulse oximetry 2023-07-09 20:14:00 97 /min [facility] Systolic blood pressure 2023-06-20 14:45:00 114 mm[Hg] [facility] Diastolic blood pressure 2023-06-20 14:45:00 75 mm[Hg] [facility] Heart rate 2023-06-20 14:45:00 99 /min Un[facility] Respiratory rate 2023-06-20 14:45:00 18 /min [facility] Body height 2023-06-20 14:45:00 154.9 cm [facility] Body weight 2023-06-20 14:45:00 81.364 kg [facility] BMI 2023-06-20 14:45:00 33.89 kg/m2 [facility] Oxygen saturation in Arterial blood by Pulse oximetry 2023-06-20 14:45:00 90 /min [facility] Systolic blood pressure 2023-06-09 17:45:00 136 mm[Hg] [facility] Diastolic blood pressure 2023-06-09 17:45:00 80 mm[Hg] [facility] Heart rate 2023-06-09 17:45:00 108 /min [facility] Respiratory rate 2023-06-09 17:45:00 18 /min [facility] Body height 2023-06-09 17:45:00 154.9 cm Univ [facility] Body weight 2023-06-09 17:45:00 79.425 kg Univ [facility] BMI 2023-06-09 17:45:00 33.08 kg/m2 Univ [facility] Oxygen saturation in Arterial blood by Pulse oximetry 2023-06-09 17:45:00 96 /min [facility] Systolic blood pressure 2023-04-17 15:28:00 112 mm[Hg] [facility] Diastolic blood pressure 2023-04-17 15:28:00 78 mm[Hg] [facility] Heart rate 2023-04-17 15:28:00 87 /min [facility] Body temperature 2023-04-17 15:28:00 37.06 [place] [facility] Respiratory rate 2023-04-17 15:28:00 20 /min [facility] Body height 2023-04-17 15:28:00 154.9 cm Univ [facility] Body weight 2023-04-17 15:28:00 77.202 kg [facility] BMI 2023-04-17 15:28:00 32.16 kg/m2 Univ [facility] Oxygen saturation in Arterial blood by Pulse oximetry 2023-04-17 15:28:00 96 /min [facility] Systolic blood pressure 2023-04-15 19:23:00 145 mm[Hg] [facility] Diastolic blood pressure 2023-04-15 19:23:00 93 mm[Hg] [facility] Heart rate 2023-04-15 19:17:00 89 /min [facility] Body temperature 2023-04-15 19:17:00 37 [place] [facility] Respiratory rate 2023-04-15 19:17:00 16 /min [facility] Body height 2023-04-15 19:17:00 154.9 cm Univ [facility] Body weight 2023-04-15 19:17:00 78.019 kg [facility] BMI 2023-04-15 19:17:00 32.50 kg/m2 Univ [facility] Oxygen saturation in Arterial blood by Pulse oximetry 2023-04-15 19:17:00 96 /min [facility] Systolic blood pressure 2023-04-13 22:55:00 132 mm[Hg] [facility] Diastolic blood pressure 2023-04-13 22:55:00 88 mm[Hg] [facility] Heart rate 2023-04-13 22:55:00 81 /min [facility] Body temperature 2023-04-13 22:55:00 37.22 [place] [facility] Respiratory rate 2023-04-13 22:55:00 14 /min [facility] Body height 2023-04-13 22:55:00 154.9 cm [facility] Body weight 2023-04-13 22:55:00 81.647 kg Univ [facility] BMI 2023-04-13 22:55:00 34.01 kg/m2 [facility] Oxygen saturation in Arterial blood by Pulse oximetry 2023-04-13 22:55:00 99 /min [facility] Systolic blood pressure 2023-04-10 02:05:00 139 mm[Hg] [facility] Diastolic blood pressure 2023-04-10 02:05:00 73 mm[Hg] [facility] Heart rate 2023-04-10 02:05:00 87 /min [facility] Body temperature 2023-04-10 02:05:00 37.06 [place] [facility] Respiratory rate 2023-04-10 02:05:00 20 /min [facility] Body height 2023-04-10 02:05:00 154.9 cm Univ [facility] Body weight 2023-04-10 02:05:00 81.647 kg Univ [facility] BMI 2023-04-10 02:05:00 34.01 kg/m2 Univ [facility] Oxygen saturation in Arterial blood by Pulse oximetry 2023-04-10 02:05:00 98 /min [facility] Body height 2023-04-08 20:56:00 154.9 cm Univ [facility] Body weight 2023-04-08 20:56:00 75.297 kg Univ [facility] BMI 2023-04-08 20:56:00 31.37 kg/m2 [facility] Systolic blood pressure 2023-03-26 20:08:00 139 mm[Hg] [facility] Diastolic blood pressure 2023-03-26 20:08:00 72 mm[Hg] [facility] Heart rate 2023-03-26 19:39:00 92 /min [facility] Body height 2023-03-26 19:39:00 154.9 cm [facility] Body weight 2023-03-26 19:39:00 75.66 kg Univ [facility] BMI 2023-03-26 19:39:00 31.52 kg/m2 [facility] Oxygen saturation in Arterial blood by Pulse oximetry 2023-03-26 19:39:00 95 /min [facility] Body weight 2023-02-27 15:35:00 80.74 kg [facility] BMI 2023-02-27 15:35:00 33.63 kg/m2 [facility] Systolic blood pressure 2023-02-24 16:36:00 132 mm[Hg] [facility] Diastolic blood pressure 2023-02-24 16:36:00 85 mm[Hg] [facility] Heart rate 2023-02-24 16:36:00 84 /min [facility] Oxygen saturation in Arterial blood by Pulse oximetry 2023-02-24 16:36:00 96 /min [facility] Body temperature 2023-02-24 16:35:00 37.56 [place] [facility] Body height 2023-02-24 16:35:00 154.9 cm [facility] Body weight 2023-02-24 16:35:00 80.967 kg Univ [facility] BMI 2023-02-24 16:35:00 33.73 kg/m2 Univ [facility] Systolic blood pressure 2023-02-19 15:32:00 153 mm[Hg] [facility] Diastolic blood pressure 2023-02-19 15:32:00 100 mm[Hg] [facility] Heart rate 2023-02-19 15:32:00 87 /min [facility] Body temperature 2023-02-19 15:32:00 37.11 [place] [facility] Respiratory rate 2023-02-19 15:32:00 18 /min [facility] Body weight 2023-02-19 15:32:00 82.555 kg Univ [facility] BMI 2023-02-19 15:32:00 34.39 kg/m2 [facility] Oxygen saturation in Arterial blood by Pulse oximetry 2023-02-19 15:32:00 99 /min [facility] Systolic blood pressure 2023-02-03 19:38:00 155 mm[Hg] [facility] Diastolic blood pressure 2023-02-03 19:38:00 87 mm[Hg] [facility] Heart rate 2023-02-03 19:38:00 96 /min [facility] Body height 2023-02-03 19:37:00 154.9 cm Univ [facility] Body weight 2023-02-03 19:37:00 82.827 kg Univ [facility] BMI 2023-02-03 19:37:00 34.50 kg/m2 Univ [facility] Oxygen saturation in Arterial blood by Pulse oximetry 2023-02-03 19:37:00 97 /min [facility] Systolic blood pressure 2022-12-30 18:30:00 135 mm[Hg] [facility] Diastolic blood pressure 2022-12-30 18:30:00 85 mm[Hg] [facility] Heart rate 2022-12-30 18:30:00 90 /min [facility] Body height 2022-12-30 18:30:00 154.9 cm Univ [facility] Body weight 2022-12-30 18:30:00 79.878 kg [facility] BMI 2022-12-30 18:30:00 33.27 kg/m2 Univ [facility] Oxygen saturation in Arterial blood by Pulse oximetry 2022-12-30 18:30:00 96 /min [facility] Systolic blood pressure 2022-11-27 19:49:00 144 mm[Hg] [facility] Diastolic blood pressure 2022-11-27 19:49:00 84 mm[Hg] [facility] Heart rate 2022-11-27 19:45:00 91 /min [facility] Body height 2022-11-27 19:45:00 154.9 cm Univ [facility] Body weight 2022-11-27 19:45:00 80.423 kg Univ [facility] BMI 2022-11-27 19:45:00 33.50 kg/m2 Univ [facility] Oxygen saturation in Arterial blood by Pulse oximetry 2022-11-27 19:45:00 98 /min [facility] Systolic blood pressure 2022-10-30 16:59:00 165 mm[Hg] [facility] Diastolic blood pressure 2022-10-30 16:59:00 95 mm[Hg] [facility] Heart rate 2022-10-30 16:59:00 73 /min [facility] Oxygen saturation in Arterial blood by Pulse oximetry 2022-10-30 16:59:00 97 /min [facility] Body temperature 2022-10-30 16:57:00 36.39 [place] [facility] Respiratory rate 2022-10-30 16:57:00 16 /min [facility] Body height 2022-10-30 16:57:00 154.9 cm [facility] Body weight 2022-10-30 16:57:00 80.377 kg [facility] BMI 2022-10-30 16:57:00 33.48 kg/m2 Univ [facility] Systolic blood pressure 2022-10-28 19:15:00 205 mm[Hg] [facility] Diastolic blood pressure 2022-10-28 19:15:00 103 mm[Hg] [facility] Heart rate 2022-10-28 19:14:00 89 /min [facility] Body height 2022-10-28 19:14:00 154.9 cm Univ [facility] Body weight 2022-10-28 19:14:00 84.369 kg Univ [facility] BMI 2022-10-28 19:14:00 35.14 kg/m2 [facility] Oxygen saturation in Arterial blood by Pulse oximetry 2022-10-28 19:14:00 96 /min [facility] Systolic blood pressure 2022-09-25 18:22:00 178 mm[Hg] [facility] Diastolic blood pressure 2022-09-25 18:22:00 92 mm[Hg] [facility] Heart rate 2022-09-25 18:13:00 92 /min [facility] Body height 2022-09-25 18:13:00 154.9 cm [facility] Body weight 2022-09-25 18:13:00 81.647 kg [facility] BMI 2022-09-25 18:13:00 34.01 kg/m2 [facility] Oxygen saturation in Arterial blood by Pulse oximetry 2022-09-25 18:13:00 97 /min [facility] Systolic blood pressure 2022-09-02 19:17:00 140 mm[Hg] [facility] Diastolic blood pressure 2022-09-02 19:17:00 80 mm[Hg] [facility] Heart rate 2022-09-02 19:17:00 106 /min [facility] Body weight 2022-09-02 19:17:00 73.483 kg [facility] BMI 2022-09-02 19:17:00 30.61 kg/m2 [facility] Oxygen saturation in Arterial blood by Pulse oximetry 2022-09-02 19:17:00 97 /min [facility] Systolic blood pressure 2022-09-01 18:15:00 142 mm[Hg] [facility] Diastolic blood pressure 2022-09-01 18:15:00 71 mm[Hg] [facility] Heart rate 2022-09-01 18:15:00 93 /min [facility] Respiratory rate 2022-09-01 18:15:00 19 /min [facility] Oxygen saturation in Arterial blood by Pulse oximetry 2022-09-01 18:15:00 98 /min [facility] Body temperature 2022-09-01 13:47:00 36.22 [place] [facility] Body weight 2022-09-01 13:47:00 83.008 kg [facility] BMI 2022-09-01 13:47:00 34.58 kg/m2 [facility] Systolic blood pressure 2022-07-03 20:15:00 156 mm[Hg] [facility] Diastolic blood pressure 2022-07-03 20:15:00 92 mm[Hg] [facility] Heart rate 2022-07-03 20:15:00 96 /min [facility] Body weight 2022-07-03 20:15:00 83.28 kg [facility] BMI 2022-07-03 20:15:00 34.69 kg/m2 Univ [facility] Oxygen saturation in Arterial blood by Pulse oximetry 2022-07-03 20:15:00 97 /min [facility] Systolic blood pressure 2024-09-08 20:13:00 152 mm[Hg] [facility] Diastolic blood pressure 2024-09-08 20:13:00 99 mm[Hg] [facility] Heart rate 2024-09-08 20:13:00 83 /min [facility] Body height 2024-09-08 20:13:00 154.9 cm Univ [facility] Body weight 2024-09-08 20:13:00 75.796 kg Univ [facility] BMI 2024-09-08 20:13:00 31.57 kg/m2 Univ [facility] Oxygen saturation in Arterial blood by Pulse oximetry 2024-09-08 20:13:00 99 /min [facility] Systolic blood pressure 2024-08-27 14:21:00 137 mm[Hg] [facility] Diastolic blood pressure 2024-08-27 14:21:00 82 mm[Hg] [facility] Heart rate 2024-08-27 14:21:00 94 /min [facility] Respiratory rate 2024-08-27 14:21:00 18 /min [facility] Body height 2024-08-27 14:21:00 154.9 cm Univ [facility] Body weight 2024-08-27 14:21:00 73.029 kg [facility] BMI 2024-08-27 14:21:00 30.42 kg/m2 [facility] Oxygen saturation in Arterial blood by Pulse oximetry 2024-08-27 14:21:00 95 /min [facility] Body temperature 2024-08-22 02:32:00 37.28 [place] [facility] Procedures Procedure Date / Time Performed Performing Clinician Source XR KNEE 3 VW BILATERAL 2024-08-27 15:18:08 Amador Novoa [facility] XR KNEE 3 VW BILATERAL 2024-08-27 15:18:08 Amador Novoa [facility] XR ANKLE 3+ VW RIGHT 2024-08-27 15:17:56 Ynes Novoa [facility] XR ANKLE 3+ VW RIGHT 2024-08-27 15:17:56 Ynes Novoa [facility] TRANSTHORACIC ECHO (TTE) COMPLETE 2024-08-09 14:32[facility] (TTE) COMPLETE 2024-08-09 14:32:18 Mackenzie Beckwith [facility] GC & CHLAMYDIA AMPLIFIED ASSAY 2024-06-18 14:40:00 Dayton Calderon [facility] TRICHOMONAS AMPLIFIED ASSAY 2024-06-18 14:40:00 Dayton Calderon [facility] HOLTER MONITOR - 48 HOUR 2024-06-09 21:05:31 Angel Garcia [facility] XR LUMBAR SPINE 3 VW 2024-04-08 17:04:51 Richie Meza [facility] XR ELBOW <3 VW LEFT 2024-04-08 17:04:51 Dane Meza [facility] AUTHORIZATION FOR RELEASE OF PHI 2023-10-30 06:01:00 Doctor Unassigned, [place] [facility] CONSENT/REFUSAL FOR DIAGNOSIS AND TREATMENT 2023-09-29 08:23:02 Doctor Unassigned, [place] [facility] ASSIGNMENT OF BENEFITS 2023-09-29 08:22:17 Docto r Unassigned, [place] [facility] MEDICATION CORRESPONDENCE 2023-06-24 05:01:00 Do ctor Unassigned, [place] [facility] POCT URINALYSIS 2023-06-09 18:18:00 Nghia Menendez Un [facility] INSURANCE CORRESPONDENCE 2023-05-30 05:01:00 Doc tor Unassigned, [place] [facility] HCV ANTIBODY 2023-04-17 16:40:00 Adum, Ellie Mcleod [facility] HIV 1/2 AG-AB WITH REFLEX 2023-04-17 16:40:00 Adum, Carol Mcleod [facility] HIGH RISK HPV-THIN PREP 2023-04-17 16:00:00 Adum, Ju Mcleod [facility] PAP SMEAR-LIQUID BASED-CP 2023-04-17 16:00:00 Adum, Carol Mcleod [facility] LAB ONLY PAP SMEAR-LIQUID BASED 2023-04-17 16:00:00 Adum, Ellie Mcleod [facility] HIGH RISK HPV-THIN PREP 2023-04-17 16:00:00 Adum, Ju Mcleod [facility] PAP SMEAR-LIQUID BASED-CP 2023-04-17 16:00:00 Adum, Carol Mcleod [facility] POCT TEST 2023-04-17 00:00:00 Adum, Ellie Mcleod [facility] POCT URINALYSIS 2023-04-15 19:29:00 Prosper Sims [facility] POCT TEST 2023-04-15 19:28:00 Stephane Snow [facility] ASSIGNMENT OF BENEFITS 2023-04-13 23:45:56 Docto r Unassigned, [place] [facility] URINALYSIS 2023-04-13 23:24:00 Dereck Johnson [facility] CONSENT/REFUSAL FOR DIAGNOSIS AND TREATMENT 2023-04-13 22:45:01 Doctor Unassigned, [place] [facility] NOTICE OF PRIVACY PRACTICES 2023-04-10 01:57:37 Doctor Unassigned, [place] [facility] POCT URINALYSIS 2023-02-24 00:00:00 Nghia Menendez Un [facility] XR LUMBAR SPINE 3 VW 2023-02-19 17:37:06 Lydia Andrade [facility] XR KNEE 3 VW LEFT 2023-02-19 17:37:06 Quentin Andrade [facility] CONSENT/REFUSAL FOR DIAGNOSIS AND TREATMENT 2023-02-19 15:29:06 Doctor Unassigned, [place] [facility] PATIENT FINANCIAL POLICY 2023-02-03 18:57:26 Doctor Unassigned, [place] [facility] MEDICATION CORRESPONDENCE 2022-12-11 06:01:00 Do ctor Unassigned, [place] [facility] MEDICATION CORRESPONDENCE 2022-11-22 06:01:00 Do ctor Unassigned, [place] [facility] CONSENT/REFUSAL FOR DIAGNOSIS AND TREATMENT 2022-09-25 17:57:27 Doctor Unassigned, [place] [facility] EKG-12 LEAD 2022-09-01 18:23:52 Deidra Meek [facility] CT CHEST PULMONARY ANGIOGRAM 2022-09-01 15:45:19 Deidra Meek [facility] XR CHEST 1 VW 2022-09-01 14:40:31 Deidra Meek [facility] URINE DRUG (IMMUNOASSAY) - COMPREHENSIVE DRUG SCREEN W/O REFLEX 2022-09-01 14:23:00 Deidra Meek [facility] LIPASE 2022-09-01 14:22:00 Deidra Meek [facility] MAGNESIUM 2022-09-01 14:22:00 Deidra Meek [facility] TROPONIN I 2022-09-01 14:22:00 Deidra Meek [facility] THYROID STIMULATING HORMONE 2022-09-01 14:22:00 Deidra Meek [facility] COMP. METABOLIC PANEL ([id number]) 2022-09-01 14:22:00 Deidra Meek [facility] ETHANOL 2022-09-01 14:22:00 Deidra Meek [facility] CBC WITH DIFF 2022-09-01 14:22:00 Drever, Deidra G [facility] D-DIMER 2022-09-01 14:22:00 Deidra Meek [facility] URINALYSIS 2022-09-01 14:22:00 Deidra Meek [facility] N-TERMINAL PRO-BNP 2022-09-01 14:22:00 Deidra Meek [facility] COVID-19 (ID NOW RAPID TESTING) 2022-09-01 14:22:00 Deidra Meek [facility] Encounters Start Date/Time End Date/Time Encounter Type Admission Type Attending [facility] Facility Care Department Encounter ID Source 2021-09-25 05:37:23 Emergency [facility] [id number] [facility] 2021-09-24 23:15:39 Emergency [facility] [id number] [facility] 2021-09-24 22:03:21 Emergency [facility] [id number] [facility] 2021-09-24 11:06:58 Emergency [facility] [id number] [facility] 2021-09-23 18:54:33 Emergency [facility] [id number] [facility] 2021-09-23 14:49:00 Emergency [facility] [id number] [facility] 2021-09-21 14:23:37 Emergency [facility] [id number] [facility] 2021-09-21 11:35:45 Emergency [facility] [id number] [facility] 2021-09-21 07:31:33 Emergency [facility] [id number] [facility] 2021-09-21 06:11:19 Emergency [facility] [id number] [facility] 2021-08-10 08:51:00 Inpatient [facility] [id number] [address] [facility] 2021-08-10 08:51:00 Inpatient [facility] [id number] [address] [facility] 2024-09-22 09:30:00 2024-09-22 09:30:00 Outpatient NGHIA MENDES [facility] [id number] [facility] 2024-09-17 00:00:00 2024-09-20 10:04:17 Telephone Chong Bailey [facility] JERALD?SUSANA [facility] [id number] [facility] 2024-08-28 00:00:00 2024-09-18 06:25:33 Telephone KeenanYue [facility] [id number] [facility] 2024-09-17 11:00:00 2024-09-17 11:00:00 Outpatient MIRIAM HEWITT [facility] [id number] [facility] 2024-09-14 00:00:00 2024-09-14 10:58:41 Telephone Shon [facility] JERALD?[facility] [id number] [facility] 2024-09-14 00:00:00 2024-09-14 10:42:35 Telephone Shon Nghia [facility] JERALD?[facility] [id number] [facility] 2024-09-12 00:00:00 2024-09-13 09:09:20 Refill Shon [facility] JERALD?[facility] [id number] [facility] 2024-08-10 00:00:00 2024-09-11 18:23:08 Patient Secure [facility] [id number] [facility] 2024-09-09 00:00:00 2024-09-09 09:52:27 Telephone Nghia Menendez [facility] [id number] [facility] 2024-09-08 15:00:00 2024-09-08 15:29:11 Outpatient R CHONG BAILEY CRAIG [facility] [id number] [facility] 2024-09-08 15:00:00 2024-09-08 15:29:11 Office Visit Chong Bailey [facility] OFFICE BUILDING 1.2840.114 350.1.13.10 4.2.7.2.686 [id number] [facility] 2024-09-08 13:15:00 2024-09-08 13:54:37 Office Visit Nghia Menendez 1.2.840.1 92231.1.1 3.104.2.7 .3.195548 .8 [id number] [facility] 2024-09-08 00:00:00 2024-09-08 00:00:00 Travel 1.2.840.1 22391.1.1 3.104.2.7 .3.349573 .8 1.2.840.114 350.1.13.10 4.2.7.3.698 084.8 [id number] [facility] 2024-09-06 00:00:00 2024-09-06 13:02:01 Telephone Nghia Menendez 1.2.840.1 92788.1.1 3.104.2.7 .3.035256 .8 [id number] [facility] 2024-09-06 00:00:00 2024-09-06 12:27:54 Telephone Shon Nghia 1.2.840.1 28616.1.1 3.104.2.7 .3.434822 .8 [id number] [facility] 2024-09-01 00:00:00 2024-09-06 08:08:54 Refirasema RaoNghia millan 1.2.840.1 38146.1.1 3.104.2.7 .3.452877 .8 [id number] [facility] 2024-09-03 00:00:00 2024-09-06 08:06:46 Telephone MenendezNghia 1.2.840.1 01867.1.1 3.104.2.7 .3.189633 .8 [id number] [facility] 2024-09-02 09:00:00 2024-09-02 09:00:00 Outpatient Amador CERVANTES, MARYCHUY CERVANTES, MARYCHUY [facility] [id number] [facility] 2024-09-01 00:00:00 2024-09-01 10:20:56 Telephone Menendez Nghia 1.2.840.1 77066.1.1 3.104.2.7 .3.479901 .8 [id number] [facility] 2024-09-01 00:00:00 2024-09-01 10:09:22 Telephone MenendezNghia millan 1.2.840.1 84967.1.1 3.104.2.7 .3.128046 .8 [id number] [facility] 2024-08-28 00:00:00 2024-08-30 09:11:29 Pete RaoNgiha millan 1.2.840.1 32144.1.1 3.104.2.7 .3.318418 .8 [id number] [facility] 2024-08-27 00:00:00 2024-08-28 12:12:18 Telephone Nghia Menendez 1.2.840.1 60566.1.1 3.104.2.7 .3.521001 .8 [id number] [facility] 2024-08-27 09:40:05 2024-08-27 23:59:00 Hospital Encounter Puneet Novoa 1.2.840.1 20278.1.1 3.104.2.7 .3.653852 .8 [id number] [facility] 2024-08-27 09:40:04 2024-08-27 23:59:00 Hospital Encounter Puneet Novoa 1.2.840.1 70479.1.1 3.104.2.7 .3.561037 .8 [id number] [facility] 2024-08-27 09:20:00 2024-08-27 10:01:01 Outpatient R PUNEET NOVOA [facility] [id number] [facility] 2024-08-27 09:20:00 2024-08-27 10:01:01 Urgent Care Unknown, Attending Puneet Novoa 1.2.840.1 60554.1.1 3.104.2.7 .3.957812 .8 [id number] [facility] 2024-08-27 00:00:00 2024-08-27 00:00:00 Travel 1.2.840.1 37314.1.1 3.104.2.7 .3.492325 .8 1.2.840.114 350.1.13.10 4.2.7.3.698 084.8 [id number] [facility] 2024-08-25 15:30:00 2024-08-25 16:00:00 Office Visit Chong Bailey Selena 1.2.840.1 89899.1.1 3.104.2.7 .3.441496 .8 [id number] [facility] 2024-08-25 15:30:00 2024-08-25 15:30:00 Outpatient CHONG BURTON CRAIG [facility] [id number] [facility] 2024-08-25 00:00:00 2024-08-25 00:00:00 Travel 1.2.840.1 77299.1.1 3.104.2.7 .3.776091 .8 1.2.840.114 350.1.13.10 4.2.7.3.698 084.8 [id number] [facility] 2024-08-21 00:00:00 2024-08-23 10:14:42 Refill Nghia Menendez 1.2.840.1 52902.1.1 3.104.2.7 .3.803997 .8 [id number] [facility] 2024-08-21 00:00:00 2024-08-23 09:22:51 Telephone Nghia Menendez 1.2.840.1 06777.1.1 3.104.2.7 .3.988639 .8 [id number] [facility] 2024-08-21 19:12:00 2024-08-21 21:53:00 Emergency Radha Flores 1.2.840.1 77845.1.1 3.104.2.7 .3.865605 .8 [id number] [facility] 2024-08-21 18:20:00 2024-08-21 18:44:41 Outpatient PUNEET SANABRIA [facility] [id number] [facility] 2024-08-21 18:20:00 2024-08-21 18:44:41 Outpatient R PUNEET NOVOA [facility] ERT [id number] [facility] 2024-08-21 18:20:00 2024-08-21 18:44:41 Nurse Visit Unknown, Attending [facility]uneet [facility] 1.2.840.1 29029.1.1 3.104.2.7 .3.898557 .8 [id number] [facility] 2024-08-21 00:00:00 2024-08-21 18:33:24 Nurse Triage Daniela Germain 1.2.840.1 29162.1.1 3.104.2.7 .3.021425 .8 [id number] [facility] 2024-08-21 00:00:00 2024-08-21 00:00:00 Travel 1.2.840.1 57545.1.1 3.104.2.7 .3.776471 .8 1.2.840.114 350.1.13.10 4.2.7.3.698 084.8 [id number] [facility] 2024-08-16 09:45:00 2024-08-16 09:45:00 Office Visit Nghia Menendez 1.2.840.1 27398.1.1 3.104.2.7 .3.889590 .8 [id number] [facility] 2024-08-16 09:45:00 2024-08-16 09:28:55 Outpatient R NGHIA MENENDEZ [facility] [id number] [facility] 2024-08-16 00:00:00 2024-08-16 00:00:00 Travel 1.2.840.1 35117.1.1 3.104.2.7 .3.718925 .8 1.2.840.114 350.1.13.10 4.2.7.3.698 084.8 [id number] [facility] 2024-08-09 08:49:29 2024-08-09 23:59:00 Hospital Encounter Mackenzie Beckwith 1.2.840.1 03961.1.1 3.104.2.7 .3.970471 .8 [id number] [facility] 2024-08-09 10:00:00 2024-08-09 11:44:09 Outpatient R MACKENZIE BECKWITH [facility] [id number] [facility] 2024-08-09 10:00:00 2024-08-09 11:44:09 Office Visit Mackenzie Beckwith 1.2.840.1 90191.1.1 3.104.2.7 .3.660731 .8 [id number] [facility] 2024-08-09 00:00:00 2024-08-09 00:00:00 Travel 1.2.840.1 12142.1.1 3.104.2.7 .3.229782 .8 1.2.840.114 350.1.13.10 4.2.7.3.698 084.8 [id number] [facility] 2024-08-06 00:00:00 2024-08-06 09:25:21 Refill Nghia Menendez 1.2.840.1 89977.1.1 3.104.2.7 .3.931164 .8 [id number] [facility] 2024-06-18 00:00:00 2024-07-24 18:24:15 Patient Secure Msg Doctor Unassigned, [place] 1.2.840.1 44801.1.1 3.104.2.7 .3.337345 .8 [id number] [facility] 2024-07-21 00:00:00 2024-07-21 14:21:15 Letter (Out) Nghia Menendez 1.2.840.1 43247.1.1 3.104.2.7 .3.623134 .8 [id number] [facility] 2024-07-21 00:00:00 2024-07-21 13:43:40 Telephone Nghia Menendez 1.2.840.1 49845.1.1 3.104.2.7 .3.796974 .8 [id number] [facility] 2024-07-15 08:45:00 2024-07-15 13:32:32 Office Visit Nghia Menendez 1.2.840.1 37183.1.1 3.104.2.7 .3.288489 .8 [id number] [facility] 2024-07-15 08:45:00 2024-07-15 08:45:00 Outpatient R NGHIA MENENDEZ [facility] [id number] [facility] 2024-07-15 08:30:00 2024-07-15 08:30:00 Outpatient R NGHIA MENENDEZ [facility] [id number] [facility] 2024-07-15 00:00:00 2024-07-15 00:00:00 Travel 1.2.840.1 70317.1.1 3.104.2.7 .3.864804 .8 1.2.840.114 350.1.13.10 4.2.7.3.698 084.8 [id number] [facility] 2024-07-07 12:30:00 2024-07-07 12:30:00 Outpatient R ZAKTAVON KINSEYShain [facility] [id number] [facility] 2024-05-19 00:00:00 2024-06-19 18:18:46 Patient Secure Msg Doctor Unassigned, [place] [facility] 1.2.840.114 350.1.13.10 4.2.7.2.686 [id number] 019 [id number] [facility] 2024-06-18 09:00:00 2024-06-18 09:41:49 Outpatient R DAYTON CALDERON [facility] [id number] [facility] 2024-06-18 09:00:00 2024-06-18 09:41:49 Office Visit Dayton Calderon 1.2.840.1 79767.1.1 3.104.2.7 .3.388694 .8 [id number] [facility] 2024-06-18 00:00:00 2024-06-18 00:00:00 Travel 1.2.840.1 17229.1.1 3.104.2.7 .3.219816 .8 1.2.840.114 350.1.13.10 4.2.7.3.698 084.8 [id number] [facility] 2024-06-14 09:30:00 2024-06-14 09:55:27 Outpatient R NGHIA MENENDEZ [facility] [id number] [facility] 2024-06-14 09:30:00 2024-06-14 09:55:27 Office Visit Nghia Menendez 1.2.840.1 41736.1.1 3.104.2.7 .3.767581 .8 [id number] [facility] 2024-06-14 00:00:00 2024-06-14 00:00:00 Travel 1.2.840.1 40665.1.1 3.104.2.7 .3.448846 .8 1.2.840.114 350.1.13.10 4.2.7.3.698 084.8 [id number] [facility] 2024-06-11 15:00:00 2024-06-11 15:00:00 Outpatient R [facility] [id number] [facility] 2024-06-09 14:53:47 2024-06-09 23:59:00 Outpatient R JEANMARIE GARCIA [facility] [id number] [facility] 2024-06-09 14:53:47 2024-06-09 23:59:00 Hospital Encounter Jeanmarie Garcia 1.2.840.1 28597.1.1 3.104.2.7 .3.988518 .8 [id number] [facility] 2024-06-09 00:00:00 2024-06-09 00:00:00 Travel 1.2.840.1 14240.1.1 3.104.2.7 .3.546425 .8 1.2.840.114 350.1.13.10 4.2.7.3.698 084.8 [id number] [facility] 2024-06-08 00:00:00 2024-06-08 14:38:05 Telephone Nghia Menendez 1.2.840.1 29111.1.1 3.104.2.7 .3.741799 .8 [id number] [facility] 2024-05-19 00:00:00 2024-05-19 12:56:49 Letter (Out) [facility] 1.2.840.114 350.1.13.10 4.2.7.2.686 [id number] 019 [id number] [facility] 2024-05-13 00:00:00 2024-05-13 15:50:05 Telephone Nghia Menendez [facility] MEDICAL OFFICE BUILDING 1.2.840.114 350.1.13.10 4.2.7.2.686 [id number] 044 [id number] [facility] 2024-05-12 00:00:00 2024-05-13 07:20:18 Telephone Nghia Menendez [facility] MED[facility] OFFICE BUILDING 1.2.840.114 350.1.13.10 4.2.7.2.686 [id number] 044 [id number] [facility] 2024-05-11 10:00:00 2024-05-11 11:12:46 Outpatient R JEANMARIE GARCIA [facility] [id number] [facility] 2024-05-11 10:00:00 2024-05-11 11:12:46 [facility] 1.2.840.114 350.1.13.10 4.2.7.2.686 [id number] 059 [id number] [facility] 2024-04-28 12:15:00 2024-04-28 12:46:28 Outpatient R NGHIA MENENDEZ [facility] [id number] [facility] 2024-04-28 12:15:00 2024-04-28 12:30:00 [facility] MEDICAL OFFICE BUILDING 1.2.840.114 350.1.13.10 4.2.7.2.686 [id number] 044 [id number] [facility] 2024-04-12 00:00:00 2024-04-14 06:18:02 Telephone Nghia Menendez [facility] JERALD?[facility] MEDICAL OFFICE BUILDING 1.2.840.114 350.1.13.10 4.2.7.2.686 [id number] 044 [id number] [facility] 2024-04-12 00:00:00 2024-04-13 06:45:07 [facility] MEDICAL OFFICE BUILDING 1.2840.114 350.1.13.10 4.2.7.2.686 [id number] 044 [id number] [facility] 2024-04-12 12:30:00 2024-04-12 12:35:13 Outpatient R NGHIA MENENDEZ [facility] [id number] [facility] 2024-04-12 12:30:00 2024-04-12 12:35:13 Inspector Filter Tip Visit Lab, Vipin Garland Shon [facility] JERALD?[facility] MEDICAL OFFICE BUILDING 1.2840.114 350.1.13.10 4.2.7.2.686 [id number] [facility] 2024-04-12 12:15:00 2024-04-12 12:30:00 [facility] MEDICAL OFFICE BUILDING 1.2.840.114 350.1.13.10 4.2.7.2.686 [id number] 044 [id number] [facility] 2024-04-08 11:40:00 2024-04-08 13:59:00 Emergency X GURU MEZA [facility] ERT [id number] [facility] 2024-04-08 11:40:00 2024-04-08 13:59:00 Emergency Guru Meza [facility] 1.2.840.114 350.1.13.10 4.2.7.2.686 [id number] 084 [id number] [facility] 2024-04-02 00:00:00 2024-04-06 10:07:05 Telephone Shon [facility] JERALD?[facility] MEDICAL OFFICE BUILDING 1.2840.114 350.1.13.10 4.2.7.2.686 [id number] 044 [id number] [facility] 2024-03-20 00:00:00 2024-03-20 00:00:00 Refill Shon [facility] JERALD?[facility] MEDICAL OFFICE BUILDING 1.2.840.114 350.1.13.10 4.2.7.2.686 [id number] 044 [id number] [facility] 2024-03-18 10:00:00 2024-03-18 10:15:00 [facility] OFF[facility]ILD[facility] 1.2.840.114 350.1.13.10 4.2.7.2.686 [id number] 044 [id number] [facility] 2024-03-18 10:00:00 2024-03-18 10:00:00 Outpatient R NGHIA MENENDEZ [facility] [id number] [facility] 2024-03-16 00:00:00 2024-03-16 00:00:00 Telephone Shon [facility] JERALD?[facility] MEDICAL OFFICE BUILDING 1.2.840.114 350.1.13.10 4.2.7.2.686 [id number] 044 [id number] [facility] 2024-03-15 12:30:00 2024-03-15 13:19:21 Outpatient R NGHIA MENENDEZ [facility] [id number] [facility] 2024-03-15 12:30:00 2024-03-15 13:19:21 Office Visit Nghia [facility] OFF[facility] BUILD[facility] 1.2840.114 350.1.13.10 4.2.7.2.686 [id number] 044 [id number] [facility] 2024-03-15 08:45:00 2024-03-15 08:45:00 Outpatient R NGHIA MENENDEZ [facility] [id number] [facility] 2024-03-15 00:00:00 2024-03-15 00:00:00 Refill Shon [facility] JERALD?[facility] MEDICAL OFFICE BUILDING 1.840.114 350.1.13.10 4.2.7.2.686 [id number] 044 [id number] [facility] 2024-03-15 00:00:00 2024-03-15 00:00:00 Telephone Nghia Menendez [facility] MEDICAL OFFICE BUILDING 1.0.114 350.1.13.10 4.2.7.2.686 [id number] 044 [id number] [facility] 2024-03-13 00:00:00 2024-03-13 00:00:00 Telephone Nghia Menendez [facility] 1.0.114 350.1.13.10 4.2.7.2.686 [id number] 044 [id number] [facility] 2024-03-13 00:00:00 2024-03-13 00:00:00 [facility] MEDICAL OFFICE BUILDING 1.840.114 350.1.13.10 4.2.7.2.686 [id number] 044 [id number] [facility] 2024-02-11 00:00:00 2024-02-11 00:00:00 Telephone Nghia Menendez [facility] 1.2.840.114 350.1.13.10 4.2.7.2.686 [id number] 044 [id number] [facility] 2024-01-14 09:30:00 2024-01-14 10:15:26 Office Visit Nghia Menendez [facility] 1..840.114 350.1.13.10 4.2.7.2.686 [id number] 044 [id number] [facility] 2024-01-14 09:30:00 2024-01-14 09:30:00 Outpatient R NGHIA MENENDEZ [facility] [id number] [facility] 2023-12-15 09:30:00 2023-12-15 09:45:00 Office Visit Nghia Menendez [facility] JERALD?[facility] MED[facility] OFFICE BUILDING 1..840.114 350.1.13.10 4.2.7.2.686 [id number] 044 [id number] [facility] 2023-12-15 09:30:00 2023-12-15 09:30:00 Outpatient R NGHIA MENENDEZ [facility] [id number] [facility] 2023-11-12 09:30:00 2023-11-12 09:45:00 Office Visit Nghia Menendez [facility] JERALD?[facility] MED[facility] OFF[facility] BUILDING 1..840.114 350.1.13.10 4.2.7.2.686 [id number] 044 [id number] [facility] 2023-11-12 09:30:00 2023-11-12 09:30:00 Outpatient R NGHIA MENENDEZ [facility] [id number] [facility] 2023-10-30 00:00:00 2023-10-30 00:00:00 Telephone Nghia Menendez [facility] MEDICAL OFFICE BUILDING 1.2840.114 350.1.13.10 4.2.7.2.686 [id number] 044 [id number] [facility] 2023-10-30 00:00:00 2023-10-30 00:00:00 Orders Only Doctor Unassigned, [place] [facility] 1.2.840.114 350.1.13.10 4.2.7.2.686 [id number] [facility] 2023-10-10 00:00:00 2023-10-10 00:00:00 Telephone Nghia Menendez [facility] MEDICAL OFFICE BUILDING 1.2840.114 350.1.13.10 4.2.7.2.686 [id number] 044 [id number] [facility] 2023-10-09 00:00:00 2023-10-09 00:00:00 [facility] MEDICAL OFFICE BUILDING 1.2840.114 350.1.13.10 4.2.7.2.686 [id number] 044 [id number] [facility] 2023-10-09 00:00:00 2023-10-09 00:00:00 Refill Nghia Menendez [facility] MEDICAL OFFICE BUILDING 1.2840.114 350.1.13.10 4.2.7.2.686 [id number] 044 [id number] [facility] 2023-10-06 00:00:00 2023-10-06 00:00:00 [facility] MEDICAL OFFICE BUILDING 1.2840.114 350.1.13.10 4.2.7.2.686 [id number] 044 [id number] [facility] 2023-10-06 00:00:00 2023-10-06 00:00:00 [facility]ILD[facility] 1.2.840.114 350.1.13.10 4.2.7.2.686 [id number] 044 [id number] [facility] 2023-10-06 00:00:00 2023-10-06 00:00:00 Telephone Nghia Menendez [facility] JERALD?[facility] MED[facility] OFFICE BUILDING 1.2.840.114 350.1.13.10 4.2.7.2.686 [id number] 044 [id number] [facility] 2023-10-02 12:45:00 2023-10-02 13:00:00 Office Visit Nghia Menendez [facility] JERALD[facility] 1.2.840.114 350.1.13.10 4.2.7.2.686 [id number] 044 [id number] [facility] 2023-10-02 12:45:00 2023-10-02 12:45:00 Outpatient NGHIA MENDES [facility] [id number] [facility] 2023-09-29 02:16:00 2023-09-29 07:39:00 Emergency X CHAY WEEKS [facility] ERT [id number] [facility] 2023-09-29 02:16:00 2023-09-29 07:39:00 Emergency Chay Weeks S [facility] 1.2.840.114 350.1.13.10 4.2.7.2.686 [id number] 084 [id number] [facility] 2023-09-19 09:00:00 2023-09-19 09:00:00 Outpatient ALTON VIDES SHIWAN [facility] [id number] [facility] 2023-09-17 10:00:00 2023-09-17 10:00:00 Outpatient NGHIA MENDES [facility] [id number] [facility] 2023-09-16 00:00:00 2023-09-16 00:00:00 Telephone Nghia Menendez [facility] MEDICAL OFFICE BUILDING 1.2.840.114 350.1.13.10 4.2.7.2.686 [id number] 044 [id number] [facility] 2023-09-15 00:00:00 2023-09-15 00:00:00 Telephone Nghia Menendez [facility] MEDICAL OFFICE BUILDING 1.2.840.114 350.1.13.10 4.2.7.2.686 [id number] 044 [id number] [facility] 2023-09-11 00:00:00 2023-09-11 00:00:00 Refill Nghia Men[facility] MED[facility] OFFICE BUILD[facility] 1.2.840.114 350.1.13.10 4.2.7.2.686 [id number] [facility] 2023-09-09 00:00:00 2023-09-09 00:00:00 Telephone Nghia Men[facility] MEDICAL OFFICE BUILDING 1.2.840.114 350.1.13.10 4.2.7.2.686 [id number] [facility] 2023-09-08 00:00:00 2023-09-08 00:00:00 Refill [facility]gh[facility] MEDICAL OFFICE BUILDING 1.2.840.114 350.1.13.10 4.2.7.2.686 [id number] [facility] 2023-09-04 12:00:00 2023-09-04 12:00:00 Outpatient R NGHIA MENENDEZ [facility] [id number] [facility] 2023-09-04 12:00:00 2023-09-04 12:00:00 Office Visit Menendez, [facility] MEDICAL OFFICE BUILDING 1.2.840.114 350.1.13.10 4.2.7.2.686 [id number] [facility] 2023-09-04 09:30:00 2023-09-04 09:30:00 Outpatient R NGHIA MENENDEZ [facility] [id number] [facility] 2023-09-04 00:00:00 2023-09-04 00:00:00 [facility] OFF[facility] 1.2.840.114 350.1.13.10 4.2.7.2.686 [id number] [id number] [facility] 2023-08-20 10:00:00 2023-08-20 10:00:00 Outpatient R ELLIE DELUCA [facility] [id number] [facility] 2023-08-15 00:00:00 2023-08-15 00:00:00 Refill [facility] MEDICAL OFFICE BUILDING 1.2.840.114 350.1.13.10 4.2.7.2.686 [id number] [facility] 2023-08-11 11:00:00 2023-08-11 11:13:55 [facility] [id number] [facility] 2023-08-11 11:00:00 2023-08-11 11:13:55 [facility] 1.2.840.114 350.1.13.10 4.2.7.2.686 [id number] [facility] 2023-08-08 08:00:00 2023-08-08 08:00:00 Outpatient R [facility] [id number] [facility] 2023-08-06 10:00:00 2023-08-06 10:27:52 Outpatient R NGHIA MENENDEZ [facility] [id number] [facility] 2023-08-06 10:00:00 2023-08-06 10:15:00 Office Visit [facility] FARIAS [facility] OFFICE BUILDING 1.2840.114 350.1.13.10 4.2.7.2.686 [id number] [facility] 2023-07-29 08:45:00 2023-07-29 08:45:00 Outpatient R MARYJANE HORNE [facility] [id number] [facility] 2023-07-09 15:00:00 2023-07-09 15:25:34 Outpatient R NGHIA MENENDEZ [facility] [id number] [facility] 2023-07-09 15:00:00 2023-07-09 15:25:34 Office Visit [facility] MED[facility] OFF[facility] BUILDING 1.284.114 350.1.13.10 4.2.7.2.686 [id number] [id number] [facility] 2023-06-25 00:00:00 2023-06-25 00:00:00 Patient Secure Msg Doctor Unassigned, [place] [facility] 1.0.114 350.1.13.10 4.2.7.2.686 [id number] [facility] 2023-06-24 00:00:00 2023-06-24 00:00:00 [facility] 1.84.114 350.1.13.10 4.2.7.2.686 [id number] [facility] 2023-06-24 00:00:00 2023-06-24 00:00:00 Orders Only Doctor Unassigned, [place] [facility] 1.0.114 350.1.13.10 4.2.7.2.686 [id number] [facility] 2023-06-20 10:00:00 2023-06-20 10:04:10 Outpatient R ALTON REYES SHIWAN [facility] [id number] [facility] 2023-06-20 10:00:00 2023-06-20 10:04:10 Office Visit Alton Reyes [facility] 1.2.840.114 350.1.13.10 4.2.7.2.686 [id number] [facility] 2023-06-18 00:00:00 2023-06-18 00:00:00 Patient Secure Msg Doctor Unassigned, [place] [facility] 1.2.840.114 350.1.13.10 4.2.7.2.686 [id number] [facility] 2023-06-16 00:00:00 2023-06-16 00:00:00 Telephone [facility] [facility] 1.2840.114 350.1.13.10 4.2.7.2.686 [id number] 044 [id number] [facility] 2023-06-16 00:00:00 2023-06-16 00:00:00 Patient Secure Msg Doctor Unassigned, [place] [facility] 1.2840.114 350.1.13.10 4.2.7.2.686 [id number] [id number] [facility] 2023-06-10 00:00:00 2023-06-10 00:00:00 Telephone Menendez Critical [facility] hospital[facility] MEDICAL OFFICE BUILDING 1.2.840.114 350.1.13.10 4.2.7.2.686 [id number] 044 [id number] [facility] 2023-06-10 00:00:00 2023-06-10 00:00:00 Telephone Nghia Menendez [facility] JERALD?SUSANA [facility] MEDICAL OFFICE BUILDING 1.2.840.114 350.1.13.10 4.2.7.2.686 [id number] 044 [id number] [facility] 2023-06-10 00:00:00 2023-06-10 00:00:00 Patient Secure Msg Doctor Unassigned, [place] [facility] MEDICAL OFFICE BUILDING 1.284.114 350.1.13.10 4.2.7.2.686 [id number] 044 [id number] [facility] 2023-06-09 12:30:00 2023-06-09 13:25:02 Outpatient R SHON NGHIA [facility] [id number] [facility] 2023-06-09 12:30:00 2023-06-09 13:25:02 [facility] MEDICAL OFFICE BUILDING 1.840.114 350.1.13.10 4.2.7.2.686 [id number] [id number] [facility] 2023-05-30 00:00:00 2023-05-30 00:00:00 Orders Only Doctor Unassigned, [place] [facility] 1.84.114 350.1.13.10 4.2.7.2.686 [id number] [facility] 2023-05-28 00:00:00 2023-05-28 00:00:00 Refill Shon [facility] JERALD?[facility] MEDICAL OFFICE BUILDING 1.2.840.114 350.1.13.10 4.2.7.2.686 [id number] 044 [id number] [facility] 2023-05-23 00:00:00 2023-05-23 00:00:00 Outpatient R ELLIE DELUCA [facility] [id number] [facility] 2023-05-07 00:00:00 2023-05-07 00:00:00 Telephone AdumEllie [facility] BUILDING 1.2.840.114 350.1.13.10 4.2.7.2.686 [id number] [facility] 2023-04-23 00:00:00 2023-04-23 00:00:00 Outpatient R MAMIE BARBOZA [facility] [id number] [facility] 2023-04-19 00:00:00 2023-04-19 00:00:00 Telephone Tiara Handyy [facility]?SUSANA [facility] MEDICAL OFFICE BUILDING 1.2.840.114 350.1.13.10 4.2.7.2.686 [id number] [facility] 2023-04-17 11:30:00 2023-04-17 11:45:00 Inspector Filter Tip Visit 2, Adc Lab Adum, Ellie Mcleod [facility] BUILDING 1.2.840.114 350.1.13.10 4.2.7.2.686 [id number] [facility] 2023-04-17 10:00:00 2023-04-17 11:06:42 Outpatient R SUGARAMINTA [facility] [id number] [facility] 2023-04-17 10:00:00 2023-04-17 11:06:42 Office Visit SugarEllie call [facility] BUILDING 1.2.840.114 350.1.13.10 4.2.7.2.686 [id number] [facility] 2023-04-16 00:00:00 2023-04-16 00:00:00 Patient Outreach Quentin Heather Mcleod [facility] JERALD?SUSANA [facility] MEDICAL OFFICE BUILDING 1.2.840.114 350.1.13.10 4.2.7.2.686 [id number] 044 [id number] [facility] 2023-04-16 00:00:00 2023-04-16 00:00:00 Telephone Nghia Menendez [facility] MEDICAL OFFICE BUILDING 1.2.840.114 350.1.13.10 4.2.7.2.686 [id number] 044 [id number] [facility] 2023-04-15 14:20:00 2023-04-15 14:40:00 Urgent Care Prosper Sims Unknown, Attending [facility] MEDICAL OFFICE BUILDING 1..840.114 350.1.13.10 4.2.7.2.686 [id number] [facility] 2023-04-15 14:20:00 2023-04-15 14:20:00 Outpatient R PROSPER SIMS [facility] [id number] [facility] 2023-04-13 17:56:00 2023-04-13 19:44:00 Emergency X DERECK JOHNSON DERECK [facility] ERT [id number] [facility] 2023-04-13 17:56:00 2023-04-13 19:44:00 Emergency Dereck Jhonson [facility] 1..840.114 350.1.13.10 4.2.7.2.686 [id number] [id number] [facility] 2023-04-09 21:07:00 2023-04-09 21:49:00 Emergency X MELLY [facility] ERT [id number] [facility] 2023-04-09 21:07:00 2023-04-09 21:49:00 Emergency [place], Sonia [facility] 1.2.840.114 350.1.13.10 4.2.7.2.686 [id number] [id number] [facility] 2023-04-09 00:00:00 2023-04-09 00:00:00 Telephone Nghia [facility]NA [facility] 1.2.840.114 350.1.13.10 4.2.7.2.686 [id number] 044 [id number] [facility] 2023-04-08 16:05:00 2023-04-08 23:59:00 Outpatient R MAMIE BARBOZA [facility] [id number] [facility] 2023-04-08 15:45:00 2023-04-08 16:00:00 Office Visit [facility]ie [facility]bo[facility] 1.2.840.114 350.1.13.10 4.2.7.2.686 [id number] [facility] 2023-03-28 00:00:00 2023-03-28 00:00:00 Telephone Nghia Menendez [facility] NAL BUILDING 1.2.840.114 350.1.13.10 4.2.7.2.686 [id number] 044 [id number] [facility] 2023-03-28 00:00:00 2023-03-28 00:00:00 Telephone Nghia Menendez [facility] JERALD?SUSANA [facility] 1.2.840.114 350.1.13.10 4.2.7.2.686 [id number] 044 [id number] [facility] 2023-03-27 09:30:00 2023-03-27 09:30:00 Outpatient R NGHIA MENENDEZ [facility] [id number] [facility] 2023-03-26 15:00:00 2023-03-26 15:15:00 Office Visit Nghia Menendez [facility] JERALD?SUSANA ONEIL MED[facility] OFF[facility] BUILDING 1.2.840.114 350.1.13.10 4.2.7.2.686 [id number] 044 [id number] [facility] 2023-03-26 15:00:00 2023-03-26 15:00:00 Outpatient NGHIA MENDES [facility] [id number] [facility] 2023-03-26 08:30:00 2023-03-26 08:30:00 Outpatient NGHIA MENDES [facility] [id number] [facility] 2023-03-20 07:30:00 2023-03-20 07:30:00 Outpatient NGHIA MENDES [facility] [id number] [facility] 2023-03-17 00:00:00 2023-03-17 00:00:00 [facility]?SUSANA [facility] MEDICAL OFFICE BUILDING 1.840.114 350.1.13.10 4.2.7.2.686 [id number] 044 [id number] [facility] 2023-03-05 00:00:00 2023-03-05 00:00:00 Telephone [facility]?SUSANA [facility] MEDICAL OFFICE BUILDING 1.84.114 350.1.13.10 4.2.7.2.686 [id number] 044 [id number] [facility] 2023-03-05 00:00:00 2023-03-05 00:00:00 [facility] MEDICAL OFFICE BUILDING 1.840.114 350.1.13.10 4.2.7.2.686 [id number] 044 [id number] [facility] 2023-03-03 00:00:00 2023-03-03 00:00:00 [facility]ill [facility] MEDICAL OFFICE BUILDING 1.840.114 350.1.13.10 4.2.7.2.686 [id number] 044 [id number] [facility] 2023-02-28 00:00:00 2023-02-28 00:00:00 [facility]ill [facility] MEDICAL OFFICE BUILDING 1.84.114 350.1.13.10 4.2.7.2.686 [id number] [id number] [facility] 2023-02-27 10:30:00 2023-02-27 12:21:16 Outpatient R CHONG BAILEY [facility] [id number] [facility] 2023-02-27 10:30:00 2023-02-27 12:21:16 Office Visit Mamie Barboza Craig [facility]?SUSANA [facility] MEDICAL OFF[facility] BUILDING 1.840.114 350.1.13.10 4.2.7.2.686 [id number] [facility] 2023-02-24 12:15:00 2023-02-24 12:15:00 Outpatient Amador SHON NGHIA [facility] [id number] [facility] 2023-02-24 11:30:00 2023-02-24 12:04:36 Outpatient Amador MENENDEZ NGHIA [facility] [id number] [facility] 2023-02-24 11:30:00 2023-02-24 12:04:36 Office Visit [facility]endez, [facility] 1.840.114 350.1.13.10 4.2.7.2.686 [id number] 044 [id number] [facility] 2023-02-19 10:33:00 2023-02-19 14:10:00 Emergency X SANDRA ANDRADE [facility] ERT [id number] [facility] 2023-02-19 10:33:00 2023-02-19 14:10:00 Emergency Sandra Andrade F [facility] 1.840.114 350.1.13.10 4.2.7.2.686 [id number] [id number] [facility] 2023-02-07 08:15:00 2023-02-07 08:30:00 Inspector Filter Tip Visit Lab, Vipin Raoers, [facility] JERALD?SUSANA [facility] 1..114 350.1.13.10 4.2.7.2.686 [id number] [facility] 2023-02-07 08:15:00 2023-02-07 08:15:00 Outpatient R NGHIA MENENDEZ [facility] [id number] [facility] 2023-02-04 09:45:00 2023-02-04 09:45:00 Outpatient R NGHIA MENENDEZ [facility] [id number] [facility] 2023-02-03 14:00:00 2023-02-03 14:15:00 [facility]?SUSANA [facility] MEDICAL OFFICE BUILDING 1..114 350.1.13.10 4.2.7.2.686 [id number] 044 [id number] [facility] 2023-02-03 14:00:00 2023-02-03 14:00:00 Outpatient R NGHIA MENENDEZ [facility] [id number] [facility] 2023-02-03 00:00:00 2023-02-03 00:00:00 Orders Only Doctor Unassigned, [place] [facility] 1..114 350.1.13.10 4.2.7.2.686 [id number] [facility] 2023-01-28 00:00:00 2023-01-28 00:00:00 Refill Shon [facility] JERALD?SUSANA [facility] MEDICAL OFFICE BUILDING 1..114 350.1.13.10 4.2.7.2.686 [id number] 044 [id number] [facility] 2023-01-02 00:00:00 2023-01-02 00:00:00 Telephone Nghia Menendez [facility] JERALD?SUSANA ONEIL MEDICAL OFFICE BUILDING 1..114 350.1.13.10 4.2.7.2.686 [id number] 044 [id number] [facility] 2022-12-31 00:00:00 2022-12-31 00:00:00 [facility] MEDICAL OFFICE BUILDING 1.2.840.114 350.1.13.10 4.2.7.2.686 [id number] 044 [id number] [facility] 2022-12-30 12:30:00 2022-12-30 12:45:00 [facility] MEDICAL OFFICE BUILDING 1.2.840.114 350.1.13.10 4.2.7.2.686 [id number] 044 [id number] [facility] 2022-12-30 12:30:00 2022-12-30 12:30:00 Outpatient NGHIA MENDES [facility] [id number] [facility] 2022-12-18 00:00:00 2022-12-18 00:00:00 Telephone Shon Critical access hospital?[facility] MEDICAL OFFICE BUILDING 1..840.114 350.1.13.10 4.2.7.2.686 [id number] 044 [id number] [facility] 2022-12-11 00:00:00 2022-12-11 00:00:00 Orders Only Doctor Unassigned, [place] [facility] 1.2.840.114 350.1.13.10 4.2.7.2.686 [id number] [facility] 2022-12-10 15:00:00 2022-12-10 15:00:00 Outpatient MEAGHAN MOSELEY [facility] [id number] [facility] 2022-11-28 13:00:00 2022-11-28 13:00:00 Outpatient NGHIA MENDES [facility] [id number] [facility] 2022-11-27 13:45:00 2022-11-27 14:14:10 Outpatient R NGHIA MENENDEZ [facility] [id number] [facility] 2022-11-27 13:45:00 2022-11-27 14:00:00 Office Visit Nghia Menendez [facility] JERALD?[facility] 1.2.840.114 350.1.13.10 4.2.7.2.686 [id number] 044 [id number] [facility] 2022-11-25 00:00:00 2022-11-25 00:00:00 Telephone Shon [facility] JERALD?SUSANA [facility] MEDICAL OFFICE BUILDING 1.2.840.114 350.1.13.10 4.2.7.2.686 [id number] 044 [id number] [facility] 2022-11-22 00:00:00 2022-11-22 00:00:00 Orders Only Doctor Unassigned, [place] [facility] 1..840.114 350.1.13.10 4.2.7.2.686 [id number] [facility] 2022-11-12 00:00:00 2022-11-12 00:00:00 Outpatient R JUANA [facility]WITHFORM[facility] [id number] [facility] 2022-10-30 10:20:00 2022-10-30 11:17:22 Outpatient R TANG SAYFORMERLY [facility] [id number] [facility] 2022-10-30 10:20:00 2022-10-30 11:17:22 [facility] 1..840.114 350.1.13.10 4.2.7.2.686 [id number] [facility] 2022-10-28 13:15:00 2022-10-28 13:32:14 Outpatient R NGHIA MENENDEZ [facility] [id number] [facility] 2022-10-28 13:15:00 2022-10-28 13:30:00 Office Visit Nghia Menendez [facility] JERALD?SUSANA [facility] MEDICAL OFFICE BUILDING 1.2.840.114 350.1.13.10 4.2.7.2.686 [id number] 044 [id number] [facility] 2022-10-01 00:00:00 2022-10-01 00:00:00 Telephone Heather Saavedra [facility] JERALD?[facility] MEDICAL OFFICE BUILDING 1.284.114 350.1.13.10 4.2.7.2.686 [id number] 044 [id number] [facility] 2022-09-26 00:00:00 2022-09-26 00:00:00 Patient Outreach Heather Saavedra [facility] JERALD?[facility] MEDICAL OFFICE BUILDING 1.2.840.114 350.1.13.10 4.2.7.2.686 [id number] 044 [id number] [facility] 2022-09-25 13:00:00 2022-09-25 13:15:00 Office Visit MenendezNghia [facility] MEDICAL OFFICE BUILDING 1.2.840.114 350.1.13.10 4.2.7.2.686 [id number] 044 [id number] [facility] 2022-09-25 13:00:00 2022-09-25 13:00:00 Outpatient NGHIA MENDES [facility] [id number] [facility] 2022-09-25 00:00:00 2022-09-25 00:00:00 Orders Only Doctor Unassigned, [place] [facility] 1.2840.114 350.1.13.10 4.2.7.2.686 [id number] [facility] 2022-09-02 14:00:00 2022-09-02 14:26:56 Outpatient NGHIA MENDES [facility] [id number] [facility] 2022-09-02 14:00:00 2022-09-02 14:15:00 Office Visit Nghia Menendez [facility] JERALD?SUSANA [facility] MED[facility] OFF[facility] BUILDING 1.2.840.114 350.1.13.10 4.2.7.2.686 [id number] 044 [id number] [facility] 2022-09-02 00:00:00 2022-09-02 00:00:00 Telephone Nghia Menendez [facility] JERALD?SUSANA [facility] OFF[facility] BUILDING 1.2.840.114 350.1.13.10 4.2.7.2.686 [id number] 044 [id number] [facility] 2022-09-01 08:47:00 2022-09-01 14:18:00 Emergency X DEIDRA MEEK [facility] ERT [id number] [facility] 2022-09-01 08:47:00 2022-09-01 14:18:00 Emergency Deidra Meek [facility] 1.2.840.114 350.1.13.10 4.2.7.2.686 [id number] 084 [id number] [facility] 2022-08-21 15:00:00 2022-08-21 15:00:00 Outpatient RUTHIE THACKER [facility] [id number] [facility] 2022-08-06 00:00:00 2022-08-06 00:00:00 Telephone Nghia Menendez [facility] JERALD?SUSANA [facility] MED[facility] OFF[facility] BUILDING 1.2.840.114 350.1.13.10 4.2.7.2.686 [id number] 044 [id number] [facility] 2022-07-03 15:15:00 2022-07-03 15:52:50 Outpatient R SHON NGHIA [facility] [id number] [facility] 2022-07-03 15:15:00 2022-07-03 15:30:00 Office Visit Shon [facility] JERALD?SUSANA FARIAS MEDICAL OFFICE BUILDING 1.284.114 350.1.13.10 4.2.7.2.686 [id number] 044 [id number] [facility] 2022-07-03 15:15:00 2022-07-03 15:15:00 Outpatient Amador MENENDEZNGHIA MILLAN [facility] [id number] [facility] 2022-07-03 00:00:00 2022-07-03 00:00:00 Patient Secure Msg Doctor Unassigned, [place] [facility] 1.20.114 350.1.13.10 4.2.7.2.686 [id number] [facility] 2022-06-28 00:00:00 2022-06-28 00:00:00 Patient Secure Msg Doctor Unassigned, [place] [facility] 1..114 350.1.13.10 4.2.7.2.686 [id number] [facility] 2022-06-26 08:47:07 2022-06-26 23:59:00 Hospital Encounter Dangelo, [facility] 1..114 350.1.13.10 4.2.7.2.686 [id number] [facility] 2022-06-26 08:46:05 2022-06-26 08:46:00 Outpatient R LAYNE WEIR [facility] [id number] [facility] 2022-06-26 08:30:00 2022-06-26 08:46:00 Hospital Encounter Dangelo, [facility] 1..114 350.1.13.10 4.2.7.2.686 [id number] [facility] 2022-06-18 00:00:00 2022-06-18 00:00:00 Case Management Dangelo [facility] 1..114 350.1.13.10 4.2.7.2.686 [id number] [id number] [facility] 2022-06-11 00:00:00 2022-06-11 00:00:00 Telephone Ruthie Haney [facility] JERALD?SUSANA KONG MEDICAL OFFICE BUILDING 1.0.114 350.1.13.10 4.2.7.2.686 [id number] 044 [id number] [facility] 2022-06-10 11:03:40 2022-06-10 23:59:00 Outpatient R ILANA ISABELLE [facility] [id number] [facility] 2022-06-10 10:00:00 2022-06-10 23:59:00 Hospital Encounter Isabelle Preciado, [facility] 1..114 350.1.13.10 4.2.7.2.686 [id number] [facility] 2022-06-06 00:00:00 2022-06-06 00:00:00 Case Management Mikael Shafer [facility] 1..114 350.1.13.10 4.2.7.2.686 [id number] [facility] 2022-06-05 09:46:00 2022-06-05 13:39:00 Emergency X GURU MEZA [facility] ERT [id number] [facility] 2022-06-05 09:46:00 2022-06-05 13:39:00 Emergency Guru Meza [facility] 1..114 350.1.13.10 4.2.7.2.686 [id number] [id number] [facility] 2022-04-05 00:00:00 2022-04-05 00:00:00 Telephone Ruthie Haney [facility] JERALD?SUSANA KONG [facility] OFF[facility] BUILDING 1.114 350.1.13.10 4.2.7.2.686 [id number] 044 [id number] [facility] 2022-04-02 00:00:00 2022-04-02 00:00:00 Refill Ruthie Haney Gloria [facility] MEDICAL OFFICE BUILDING 1.2.840.114 350.1.13.10 4.2.7.2.686 [id number] 044 [id number] [facility] 2022-03-28 00:00:00 2022-03-28 00:00:00 Orders Only Doctor Unassigned, [place] [facility] 1.2840.114 350.1.13.10 4.2.7.2.686 [id number] [facility] 2022-03-27 00:00:00 2022-03-27 00:00:00 [facility] MEDICAL OFFICE BUILDING 1.2.840.114 350.1.13.10 4.2.7.2.686 [id number] 044 [id number] [facility] 2022-03-14 11:15:00 2022-03-14 11:30:00 Office Visit Mamie Barboza [facility] MEDICAL OFFICE BUILDING 1.2.840.114 350.1.13.10 4.2.7.2.686 [id number] [facility] 2022-03-14 11:15:00 2022-03-14 11:15:00 Outpatient MAMIE MOREJON [facility] [id number] [facility] 2022-03-14 11:15:00 2022-03-14 11:15:00 Outpatient MAMIE MOREJON [facility] [id number] [facility] 2022-03-13 09:00:00 2022-03-13 09:00:00 Outpatient ROSY CARLSON [facility] [id number] [facility] 2022-03-13 09:00:00 2022-03-13 09:00:00 Outpatient R FLOWERSROSY WOOTEN [facility] [id number] [facility] 2022-03-13 00:00:00 2022-03-13 00:00:00 Telephone Chong Bailey [facility] JERALD?SUSANA [facility] MEDICAL OFFICE BUILDING 1.840.114 350.1.13.10 4.2.7.2.686 [id number] [facility] 2022-03-11 00:00:00 2022-03-11 00:00:00 Orders Only Doctor Unassigned, [place] [facility] 1.84.114 350.1.13.10 4.2.7.2.686 [id number] [facility] 2022-03-07 00:00:00 2022-03-07 00:00:00 Telephone Chong Bailey [facility] MEDICAL OFFICE BUILDING 1.84.114 350.1.13.10 4.2.7.2.686 [id number] [facility] 2022-03-06 00:00:00 2022-03-06 00:00:00 Telephone Mamie Barboza [facility] MEDICAL OFFICE BUILDING 1.84.114 350.1.13.10 4.2.7.2.686 [id number] [facility] 2022-03-06 00:00:00 2022-03-06 00:00:00 Telephone Chong Bailey [facility] MEDICAL OFFICE BUILDING 1.84.114 350.1.13.10 4.2.7.2.686 [id number] [facility] 2022-03-01 00:00:00 2022-03-01 00:00:00 Telephone Ruthie Haney [facility] MEDICAL OFFICE BUILDING 1.114 350.1.13.10 4.2.7.2.686 [id number] [facility] 2022-02-28 00:00:00 2022-02-28 00:00:00 Telephone Chong Bailey [facility] MED[facility] OFF[facility] BUILDING 1.114 350.1.13.10 4.2.7.2.686 [id number] [facility] 2022-02-27 00:00:00 2022-02-27 00:00:00 Outpatient R CHONG BAILEY [facility] [id number] [facility] 2022-02-27 00:00:00 2022-02-27 00:00:00 Orders Only Doctor Unassigned, [place] [facility] 1.114 350.1.13.10 4.2.7.2.686 [id number] [facility] 2022-02-26 00:00:00 2022-02-26 00:00:00 Telephone Chong Bailey [facility] MEDICAL OFFICE BUILDING 1.114 350.1.13.10 4.2.7.2.686 [id number] [facility] 2022-02-20 10:27:42 2022-02-20 23:59:00 Outpatient R CHONG BAILEY [facility] [id number] [facility] 2022-02-20 10:27:42 2022-02-20 23:59:00 Hospital Encounter BaileyChong [facility] 1.114 350.1.13.10 4.2.7.2.686 [id number] [facility] 2022-02-20 11:15:00 2022-02-20 11:30:00 Inspector Filter Tip Visit Pob, Adc Lab Main Chong Bailey [facility] 1.114 350.1.13.10 4.2.7.2.686 [id number] [facility] 2022-02-20 00:00:00 2022-02-20 00:00:00 [facility] MEDICAL OFFICE BUILDING 1.840114 350.1.13.10 4.2.7.2.686 [id number] [facility] 2022-02-20 00:00:00 2022-02-20 00:00:00 Orders Only Doctor Unassigned, [place] [facility] 1.114 350.1.13.10 4.2.7.2.686 [id number] [facility] 2022-02-18 14:30:00 2022-02-18 14:26:49 Outpatient R CHONG BAILEY [facility] [id number] [facility] 2022-02-18 00:00:00 2022-02-18 00:00:00 Telephone Chong Bailey [facility] MEDICAL OFFICE BUILDING 1.114 350.1.13.10 4.2.7.2.686 [id number] 198 [id number] [facility] 2022-02-11 00:00:00 2022-02-11 00:00:00 Telephone Ruthie Haney [facility] 1.84114 350.1.13.10 4.2.7.2.686 [id number] [facility] 2022-02-01 00:00:00 2022-02-01 00:00:00 [facility]phone [facility] 1.84.114 350.1.13.10 4.2.7.2.686 [id number] [facility] 2022-01-31 09:28:33 2022-01-31 23:59:00 Outpatient R CHONG BAILEY [facility] [id number] [facility] 2022-01-31 09:28:33 2022-01-31 23:59:00 Hospital Encounter Chong Bailey [facility] 1.2840.114 350.1.13.10 4.2.7.2.686 [id number] [facility] 2022-01-30 00:00:00 2022-01-30 00:00:00 Orders Only Doctor Unassigned, [place] [facility] 1.20.114 350.1.13.10 4.2.7.2.686 [id number] [facility] 2022-01-27 21:17:00 2022-01-27 23:49:00 Emergency X SANDRA ANDRADE [facility] ERT [id number] [facility] 2022-01-27 21:17:00 2022-01-27 23:49:00 Emergency Sandra Andrade F [facility] 1.20.114 350.1.13.10 4.2.7.2.686 [id number] [id number] [facility] 2022-01-24 00:00:00 2022-01-24 00:00:00 Telephone Chong Bailey [facility] 1.2840.114 350.1.13.10 4.2.7.2.686 [id number] [facility] 2022-01-11 00:00:00 2022-01-11 00:00:00 Telephone Chong Bailey [facility] 1.840.114 350.1.13.10 4.2.7.2.686 [id number] [facility] 2022-01-10 12:24:00 2022-01-10 13:44:00 Emergency X REKHA CHAU [facility] ERT [id number] [facility] 2022-01-10 12:24:00 2022-01-10 13:44:00 Emergency Rekha Chau [facility] 1.2840.114 350.1.13.10 4.2.7.2.686 [id number] 084 [id number] [facility] 2022-01-10 00:00:00 2022-01-10 00:00:00 Patient Secure Msg Doctor Unassigned, [place] [facility] 1.284.114 350.1.13.10 4.2.7.2.686 [id number] [facility] 2022-01-07 14:55:00 2022-01-07 23:59:00 Hospital Encounter Chong Bailey [facility] 1.2840.114 350.1.13.10 4.2.7.2.686 [id number] [facility] 2022-01-07 17:40:00 2022-01-07 18:00:00 Urgent Care Provider, [facility] Neli Baron [facility] 1.284.114 350.1.13.10 4.2.7.2.686 [id number] [facility] 2022-01-07 16:00:00 2022-01-07 16:00:00 Office Visit Chong Bailey [facility] 1.284.114 350.1.13.10 4.2.7.2.686 [id number] [facility] 2022-01-07 16:00:00 2022-01-07 15:12:51 Outpatient R CHONG BAILEY [facility] [id number] [facility] 2022-01-07 16:00:00 2022-01-07 15:12:51 Outpatient R CHONG BAILEY [facility] [id number] [facility] 2022-01-07 00:00:00 2022-01-07 00:00:00 Telephone Ruthie Haney Gloria [facility] JER[facility]D?[facility] 1..840.114 350.1.13.10 4.2.7.2.686 [id number] [facility] 2022-01-03 00:00:00 2022-01-03 00:00:00 Outpatient ROSY CARLSON [facility] [id number] [facility] 2021-11-29 14:00:00 2021-11-29 14:00:00 Outpatient Amador FLOWERS [facility] [id number] [facility] 2021-11-20 00:00:00 2021-11-20 00:00:00 Telephone Ruthie Haney [facility] JERALD?[facility] OFFICE [facility] 1..840.114 350.1.13.10 4.2.7.2.686 [id number] [id number] [facility] 2021-11-12 00:00:00 2021-11-12 00:00:00 Telephone Chong Bailey [facility] JER[facility]D?[facility] 1..840.114 350.1.13.10 4.2.7.2.686 [id number] [facility] 2021-11-09 09:00:00 2021-11-09 09:00:00 Outpatient CHONG BURTON [facility] [id number] [facility] 2021-11-06 00:00:00 2021-11-06 00:00:00 Mamie Smith [facility] 1..840.114 350.1.13.10 4.2.7.2.686 [id number] [facility] 2021-11-06 00:00:00 2021-11-06 00:00:00 Refill Doctor Unassigned, [place] [facility] KEY[facility] SKELTON 1.2840.114 350.1.13.10 4.2.7.2.686 [id number] 198 [id number] [facility] 2021-11-05 15:54:00 2021-11-05 20:33:00 Emergency X DEIDRA MEEK [facility] ERT [id number] [facility] 2021-11-05 15:54:00 2021-11-05 20:33:00 Emergency Deidra Meek G [facility] 1.284.114 350.1.13.10 4.2.7.2.686 [id number] [facility] 2021-11-01 00:00:00 2021-11-01 00:00:00 Telephone Mamie Barboza [facility] J[facility]D?[facility] 1.840.114 350.1.13.10 4.2.7.2.686 [id number] [facility] 2021-10-31 14:00:00 2021-10-31 14:00:00 Outpatient R ROSY FLOWERS [facility] [id number] [facility] 2021-10-22 00:00:00 2021-10-22 00:00:00 Refill Rosy Flowers [facility] BUILDING 1.840.114 350.1.13.10 4.2.7.2.686 [id number] [facility] 2021-10-17 00:00:00 2021-10-17 00:00:00 Telephone Rosy Flowers [facility] BUILDING 1.284.114 350.1.13.10 4.2.7.2.686 [id number] 059 [id number] [facility] 2021-10-11 00:00:00 2021-10-11 00:00:00 Telephone Mamie Barboza [facility] 1.2.840.114 350.1.13.10 4.2.7.2.686 [id number] [facility] 2021-10-04 10:45:44 2021-10-04 23:59:00 Hospital Encounter Rosy Flowers [facility] BUILD[facility] 1.2.840.114 350.1.13.10 4.2.7.2.686 [id number] [facility] 2021-10-04 10:30:00 2021-10-04 10:58:26 Outpatient R ROSY FLOWERS [facility] [id number] [facility] 2021-10-04 10:30:00 2021-10-04 10:58:26 Outpatient R ROSY FLOWERS [facility] [id number] [facility] 2021-10-04 10:11:17 2021-10-04 10:58:26 Office Visit Rosy Flowers [facility] BUILDING 1.2.840.114 350.1.13.10 4.2.7.2.686 [id number] [facility] 2021-10-03 14:00:00 2021-10-03 14:23:38 Outpatient R MAMIE BARBOZA [facility] [id number] [facility] 2021-10-03 14:00:00 2021-10-03 14:23:38 Outpatient MAMIE MOREJON [facility] [id number] [facility] 2021-10-03 14:00:00 2021-10-03 14:23:38 Outpatient R MAMIE BARBOZA [facility] [id number] [facility] 2021-10-03 13:57:05 2021-10-03 14:23:38 [facility] 1.84.114 350.1.13.10 4.2.7.2.686 [id number] [facility] 2021-10-01 00:00:00 2021-10-01 00:00:00 [facility] 1.84.114 350.1.13.10 4.2.7.2.686 [id number] [facility] 2021-09-27 13:30:00 2021-09-27 13:30:00 Outpatient R ROSY FLOWERS [facility] [id number] [facility] 2021-09-27 13:30:00 2021-09-27 13:30:00 Outpatient R ROSY FLOWERS [facility] [id number] [facility] 2021-09-25 10:12:06 2021-09-25 23:59:00 Outpatient R MAMIE BARBOZA [facility] [id number] [facility] 2021-09-25 10:12:06 2021-09-25 23:59:00 Hospital Encounter Mamie Barboza [facility] 1..114 350.1.13.10 4.2.7.2.686 [id number] [facility] 2021-09-25 10:12:06 2021-09-25 23:59:00 Outpatient R [facility] [facility] [id number] [facility] 2021-09-25 00:00:00 2021-09-25 00:00:00 Orders Only Doctor Unassigned, [place] [facility] 1..114 350.1.13.10 4.2.7.2.686 [id number] [facility] 2021-09-25 00:00:00 2021-09-25 00:00:00 Telephone Ruthie Haney [facility] J[facility]ALD?[facility] 1.2.840.114 350.1.13.10 4.2.7.2.686 [id number] 044 [id number] [facility] 2021-09-19 00:00:00 2021-09-19 00:00:00 Telephone Mamie Barboza [facility] J[facility] 1..840.114 350.1.13.10 4.2.7.2.686 [id number] [facility] 2021-09-18 00:00:00 2021-09-18 00:00:00 Patient Secure Msg Doctor Unassigned, [place] [facility] 1..840.114 350.1.13.10 4.2.7.2.686 [id number] [facility] 2021-09-15 00:00:00 2021-09-15 00:00:00 Telephone Ruthie Haney [facility] Jerald?[facility] 1.2.840.114 350.1.13.10 4.2.7.2.686 [id number] [id number] [facility] 2021-09-13 13:21:54 2021-09-13 13:51:54 Office Visit Tamra Mamie [facility] 1..840.114 350.1.13.10 4.2.7.2.686 [id number] [facility] 2021-09-13 13:15:00 2021-09-13 13:49:15 Outpatient MAMIE MOREJON [facility] [id number] [facility] 2021-09-13 13:15:00 2021-09-13 13:49:15 Outpatient MAMIE MOREJON [facility] [id number] [facility] 2021-09-13 13:15:00 2021-09-13 13:49:15 Outpatient Amador BARBOZA MAMIE [facility] [id number] [facility] 2021-09-13 00:00:00 2021-09-13 00:00:00 Refill Ruthie Haney [facility] 1..840.114 350.1.13.10 4.2.7.2.686 [id number] [id number] [facility] 2021-09-11 09:59:00 2021-09-11 11:16:[address] [facility] 1..840.114 350.1.13.10 4.2.7.2.686 [id number] [facility] 2021-09-11 09:59:00 2021-09-11 11:16:00 Emergency X GURU MEZA [facility] ERT [id number] [facility] 2021-09-11 09:59:00 2021-09-11 11:16:00 Emergency X GURU MEZA [facility] ERT [id number] [facility] 2021-09-10 00:00:00 2021-09-10 00:00:00 Patient Secure Msg Doctor Unassigned, [place] [facility] 1..840.114 350.1.13.10 4.2.7.2.686 [id number] [facility] 2021-09-05 11:55:00 2021-09-05 14:02:00 Emergency Guru Meza [facility] 1..840.114 350.1.13.10 4.2.7.2.686 [id number] [id number] [facility] 2021-09-05 09:17:56 2021-09-05 09:32:56 Inspector Filter Tip Visit Lab, Ang - Db Ruthie Haney [facility] 1..840.114 350.1.13.10 4.2.7.2.686 [id number] [facility] 2021-09-05 08:00:00 2021-09-05 09:16:46 Outpatient R RUTHIE HANEY [facility] [id number] [facility] 2021-09-05 08:00:00 2021-09-05 09:16:46 Outpatient R RUTHIE HANEY [facility] [id number] [facility] 2021-09-05 08:00:00 2021-09-05 09:16:46 Outpatient R RUTHIE HANEY [facility] ERT [id number] [facility] 2021-09-05 07:55:15 2021-09-05 09:16:46 Office Visit Ruthie Haney [facility] 1..840.114 350..13.10 4.2.7.2.686 [id number] [facility] 2021-09-05 08:00:00 2021-09-05 08:00:00 Outpatient R RUTHIE HANEY [facility] [id number] [facility] 2021-09-05 00:00:00 2021-09-05 00:00:00 Orders Only Doctor Unassigned, [place] [facility] 1.2840.114 350.1.13.10 4.2.7.2.686 [id number] [facility] 2021-09-03 02:02:00 2021-09-03 02:31:00 Emergency LINDA REYES [facility] ERT [id number] [facility] 2021-08-31 11:17:00 2021-08-31 11:30:00 Emergency Guru Meza [facility] 1.840.114 350.1.13.10 4.2.7.2.686 [id number] [facility] 2021-08-31 11:17:00 2021-08-31 11:30:00 Emergency X GURU MEZA [facility] ERT [id number] [facility] 2021-08-31 11:17:00 2021-08-31 11:30:00 Emergency X GURU MEZA [facility] ERT [id number] [facility] 2021-08-30 10:17:00 2021-08-30 12:25:00 Emergency Timothy Bailey [facility] 1.2.840.114 350.1.13.10 4.2.7.2.686 [id number] [facility] 2021-08-30 10:17:00 2021-08-30 12:25:00 Emergency X TIMOTHY BAILEY [facility] ERT [id number] [facility] 2021-08-30 10:17:00 2021-08-30 12:25:00 Emergency X TIMOTHY BAILEY [facility] ERT [id number] [facility] 2021-08-26 12:18:00 2021-08-26 12:26:00 Emergency ErictranrosamariaProsper Sandra Vidal [facility] 1.2.840.114 350.1.13.10 4.2.7.2.686 [id number] [facility] 2021-08-26 12:18:00 2021-08-26 12:26:00 Emergency X LINDA DEGROOT [facility] ERT [id number] [facility] 2021-08-26 12:18:00 2021-08-26 12:26:00 Emergency X LINDA DEGROOT [facility] ERT [id number] [facility] 2021-08-26 12:18:00 2021-08-26 12:26:00 Emergency X LINDA DEGROOT [facility] ERT [id number] [facility] 2021-08-23 14:09:00 2021-08-23 14:43:00 Emergency Linda Degroot [facility] 1.2.840.114 350.1.13.10 4.2.7.2.686 [id number] [id number] [facility] 2021-08-23 14:09:00 2021-08-23 14:43:00 Emergency X LINDA DEGROOT [facility] ERT [id number] [facility] 2021-08-23 14:09:00 2021-08-23 14:43:00 Emergency X LINDA DEGROOT [facility] ERT [id number] [facility] 2021-08-09 20:23:00 2021-08-09 21:57:00 Emergency Meghan Harvey [facility] 1.2.840.114 350.1.13.10 4.2.7.2.686 [id number] [facility] 2021-08-09 16:53:00 2021-08-09 17:40:00 Emergency X [facility] ERT [id number] [facility] 2021-08-09 16:53:00 2021-08-09 17:40:00 Emergency [facility] 1.2.840.114 350.1.13.10 4.2.7.2.686 [id number] 084 [id number] [facility] 2021-08-09 16:53:00 2021-08-09 17:40:00 Emergency X [facility] ERT [id number] [facility] 2021-08-05 01:08:00 2021-08-05 04:43:00 Emergency Rekha Chau Rohith [facility] 1.2.840.114 350.1.13.10 4.2.7.2.686 [id number] [facility] 2021-08-05 01:08:00 2021-08-05 04:43:00 Emergency X REGIS CORTEZ [facility] ERT [id number] [facility] 2021-06-24 12:31:00 2021-06-24 14:00:00 Emergency Janet Love [facility] 1.2.840.114 350.1.13.10 4.2.7.2.686 [id number] [id number] [facility] 2021-06-24 12:31:00 2021-06-24 14:00:00 Emergency X Janet LOVE [facility] ERT [id number] [facility] 2021-06-24 12:31:00 2021-06-24 14:00:00 Emergency X aJnet LOVE [facility] ERT [id number] [facility] 2021-06-19 11:32:00 2021-06-19 14:24:00 Emergency Desi Chay Rimma [facility] 1.2.840.114 350.1.13.10 4.2.7.2.686 [id number] [id number] [facility] 2021-06-19 11:32:00 2021-06-19 14:24:00 Emergency X CHAY WEEKS [facility] ERT [id number] [facility] 2021-06-02 12:03:00 2021-06-02 12:24:00 Emergency Barry Gomez [facility] 1.2.840.114 350.1.13.10 4.2.7.2.686 [id number] [id number] [facility] 2021-06-02 12:03:00 2021-06-02 12:24:00 Emergency X JASON, BARRY [facility] ERT [id number] [facility] 2021-06-02 12:03:00 2021-06-02 12:24:00 Emergency X JASON, BARRY [facility] ERT [id number] [facility] 2021-05-22 09:22:00 2021-05-22 10:24:00 Emergency Brian Gray [facility] 1.2.840.114 350.1.13.10 4.2.7.2.686 [id number] 084 [id number] 2021-05-22 09:22:00 2021-05-22 10:24:00 Emergency Brian Gray [facility] 1.2.840.114 350.1.13.10 4.2.7.2.686 [id number] [id number] [facility] 2021-05-22 09:22:00 2021-05-22 10:24:00 Emergency X BRIAN GRAY [facility] ERT [id number] [facility] 2021-05-22 09:22:00 2021-05-22 10:24:00 Emergency X BRIAN GRAY [facility] ERT [id number] [facility] 2021-04-05 11:37:00 2021-04-05 13:25:00 [facility] 1.2.840.114 350.1.13.10 4.2.7.2.686 [id number] 084 [id number] 2021-04-05 11:37:00 2021-04-05 13:25:00 Emergency Meghan Harvey [facility] 1.2.840.114 350.1.13.10 4.2.7.2.686 [id number] [id number] [facility] 2021-04-05 11:37:00 2021-04-05 13:25:00 Emergency X MEGHAN HARVEY [facility] ERT [id number] [facility] 2021-04-05 11:37:00 2021-04-05 13:25:00 Emergency X MEGHAN HARVEY [facility] ERT [id number] [facility] 2021-03-16 08:30:00 2021-03-16 10:05:00 Emergency Linda Degroot [facility] 1.2.840.114 350.1.13.10 4.2.7.2.686 [id number] 084 [id number] 2021-03-16 08:30:00 2021-03-16 10:05:00 Emergency Linda Degroot [facility] 1.2.840.114 350.1.13.10 4.2.7.2.686 [id number] 084 [id number] [facility] 2021-03-16 00:00:00 2021-03-16 00:00:00 Orders Only Doctor Unassigned, [place] [facility] 1.2.840.114 350.1.13.10 4.2.7.2.686 [id number] 2021-03-16 00:00:00 2021-03-16 00:00:00 Orders Only Doctor Unassigned, [place] [facility] 1.2.840.114 350.1.13.10 4.2.7.2.686 [id number] [facility] 2021-03-02 00:00:00 2021-03-02 00:00:[address] [facility] 1.2.840.114 350.1.13.10 4.2.7.2.686 [id number] 2021-03-02 00:00:00 2021-03-02 00:00:00 Telephone Leo Chong L [facility] 1.2.840.114 350.1.13.10 4.2.7.2.686 [id number] [facility] 2021-02-17 17:20:00 2021-02-17 18:16:00 Emergency Linda Degroot [facility] 1.2.840.114 350.1.13.10 4.2.7.2.686 [id number] 084 [id number] 2021-02-17 17:20:00 2021-02-17 18:16:00 Emergency Linda Degroot [facility] 1.2.840.114 350.1.13.10 4.2.7.2.686 [id number] 084 [id number] [facility] 2021-02-17 17:20:00 2021-02-17 18:16:00 Emergency X LINDA DEGROOT [facility] ERT [id number] [facility] 2021-02-17 17:20:00 2021-02-17 18:16:00 Emergency X LINDA DEGROOT [facility] ERT [id number] [facility] 2021-02-12 11:02:00 2021-02-12 11:46:00 Emergency Chay Weeks [facility] 1.2.840.114 350.1.13.10 4.2.7.2.686 [id number] [id number] 2021-02-12 11:02:00 2021-02-12 11:46:00 Emergency X CHAY WEEKS [facility] ERT [id number] [facility] 2021-02-12 11:02:00 2021-02-12 11:46:00 Emergency X CHAY WEEKS [facility] ERT [id number] [facility] 2021-02-12 11:02:00 2021-02-12 11:46:00 Emergency Chay Weeks [facility] 1.2.840.114 350.1.13.10 4.2.7.2.686 [id number] 084 [id number] [facility] 2020-09-28 00:00:00 2020-09-28 00:00:00 Pete Barboza [facility] 1.2.840.114 350.1.13.10 4.2.7.2.686 [id number] 2020-09-28 00:00:00 2020-09-28 00:00:00 Pete Barboza [facility] 1.2.840.114 350.1.13.10 4.2.7.2.686 [id number] [facility] 2020-07-18 11:27:00 2020-07-18 12:25:00 Emergency Brian Gray [facility] 1.2.840.114 350.1.13.10 4.2.7.2.686 [id number] 084 [id number] 2020-07-18 11:27:00 2020-07-18 12:25:00 Emergency Brian Gray [facility] 1.2.840.114 350.1.13.10 4.2.7.2.686 [id number] 084 [id number] [facility] 2020-07-14 10:35:00 2020-07-14 11:01:00 Emergency Brian Gray [facility] 1.2.840.114 350.1.13.10 4.2.7.2.686 [id number] 084 [id number] 2020-07-14 10:35:00 2020-07-14 11:01:00 Emergency X BRIAN GRAY [facility] ERT [id number] [facility] 2020-07-14 10:35:00 2020-07-14 11:01:00 Emergency Brian Gray [facility] 1.2.840.114 350.1.13.10 4.2.7.2.686 [id number] 084 [id number] [facility] 2020-07-06 00:00:00 2020-07-06 00:00:00 Letter (Out) [facility] 1.2.840.114 350.1.13.10 4.2.7.2.686 [id number] [id number] 2020-07-06 00:00:00 2020-07-06 00:00:00 Letter (Out) [facility] 1.2.840.114 350.1.13.10 4.2.7.2.686 [id number] 019 [id number] [facility] 2020-07-03 14:13:00 2020-07-03 17:14:00 Emergency Ivan, K [facility] 1.2.840.114 350.1.13.10 4.2.7.2.686 [id number] 2020-07-03 14:13:00 2020-07-03 17:14:00 Emergency Janet Love [facility] 1.2.840.114 350.1.13.10 4.2.7.2.686 [id number] [id number] [facility] 2020-06-18 00:00:00 2020-06-18 00:00:00 Orders Only Doctor Unassigned, [place] [facility] 1.2.840.114 350.1.13.10 4.2.7.2.686 [id number] [id number] 2020-06-18 00:00:00 2020-06-18 00:00:00 Orders Only Doctor Unassigned, [place] [facility] 1.2.840.114 350.1.13.10 4.2.7.2.686 [id number] [id number] [facility] 2020-06-11 07:22:31 2020-06-11 07:47:00 [facility] 1.2.840.114 350.1.13.10 4.2.7.2.686 [id number] [id number] 2020-06-11 07:22:31 2020-06-11 07:47:00 Emergency Erasto Graynicole Gray [facility] 1.2.840.114 350.1.13.10 4.2.7.2.686 [id number] [id number] [facility] 2020-06-11 00:00:00 2020-06-11 00:00:00 Orders Only Doctor Unassigned, [place] [facility] 1.2.840.114 350.1.13.10 4.2.7.2.686 [id number] [id number] 2020-06-11 00:00:00 2020-06-11 00:00:00 Orders Only Doctor Unassigned, [place] [facility] 1.2.840.114 350.1.13.10 4.2.7.2.686 [id number] [facility] 2020-06-03 15:21:35 2020-06-03 18:43:00 Emergency Chay Weeks [facility] 1.2.840.114 350.1.13.10 4.2.7.2.686 [id number] 084 [id number] 2020-06-03 15:21:35 2020-06-03 18:43:00 [facility] 1.2.840.114 350.1.13.10 4.2.7.2.686 [id number] [id number] [facility] 2020-06-03 00:00:00 2020-06-03 00:00:00 Orders Only Doctor Unassigned, [place] [facility] 1.2.840.114 350.1.13.10 4.2.7.2.686 [id number] [id number] 2020-06-03 00:00:00 2020-06-03 00:00:00 Orders Only Doctor Unassigned, [place] [facility] 1.2.840.114 350.1.13.10 4.2.7.2.686 [id number] [facility] 2020-05-31 00:00:00 2020-05-31 00:00:00 Telephone [facility] 1.2.840.114 350.1.13.10 4.2.7.2.686 [id number] 2020-05-31 00:00:00 2020-05-31 00:00:00 Telephone [facility] 1.2.840.114 350.1.13.10 4.2.7.2.686 [id number] [facility] 2020-05-19 00:00:00 2020-05-19 00:00:[address] [facility] [place] 1.2.840.114 350.1.13.10 4.2.7.2.686 [id number] [facility] 2020-05-18 13:35:31 2020-05-18 23:59:00 Outpatient R LEO CHONG [facility] [id number] [facility] 2020-05-18 13:35:00 2020-05-18 23:59:00 Hospital Encounter Chong Bailey [facility] 1.2.840.114 350.1.13.10 4.2.7.2.686 [id number] [facility] 2020-05-18 15:22:03 2020-05-18 16:00:04 Office Visit Mamie Barboza [facility] ke[place] 1.2.840.114 350.1.13.10 4.2.7.2.686 [id number] 2020-05-18 15:22:03 2020-05-18 16:00:04 Office Visit Mamie Barboza Craig L [facility] [place] 1.2.840.114 350.1.13.10 4.2.7.2.686 [id number] [facility] 2020-05-18 00:00:00 2020-05-18 00:00:[address] [facility] [place] 1.2.840.114 350.1.13.10 4.2.7.2.686 [id number] [facility] 2020-05-18 00:00:00 2020-05-18 00:00:00 Refill Mamie Barboza [facility] [place] 1.2.840.114 350.1.13.10 4.2.7.2.686 [id number] [facility] 2020-05-13 09:27:28 2020-05-13 10:04:00 Emergency Linda Degroot [facility] 1.2.840.114 350.1.13.10 4.2.7.2.686 [id number] [facility] 2020-05-13 09:16:00 2020-05-13 09:16:00 Emergency X [facility] ERT [id number] [facility] 2020-05-08 00:00:00 2020-05-08 00:00:00 Orders Only Doctor Unassigned, [place] [facility] 1.2.840.114 350.1.13.10 4.2.7.2.686 [id number] [facility] 2020-05-07 07:13:15 2020-05-07 07:48:00 Emergency GrayBrian [facility] 1.2.840.114 350.1.13.10 4.2.7.2.686 [id number] [facility] 2020-05-07 07:13:15 2020-05-07 07:13:15 Emergency X BRIAN GRAY [facility] ERT [id number] [facility] 2020-04-09 19:10:48 2020-04-09 20:54:00 Emergency Jacqueline Luu [facility] 1.2.840.114 350.1.13.10 4.2.7.2.686 [id number] [facility] 2020-04-09 19:04:00 2020-04-09 19:04:00 Emergency X [facility] ERT [id number] [facility] 2019-08-12 19:51:41 2019-08-12 20:52:00 Emergency Bruce Robins [facility] 1.2.840.114 350.1.13.10 4.2.7.2.686 [id number] [facility] 2019-07-21 00:00:00 2019-07-21 00:00:00 Transition of Care Jeannie Lopez 1.2.840.114 350.1.13.10 4.2.7.2.686 [id number] [facility] 2019-07-17 11:29:01 2019-07-20 16:22:00 Hospital Encounter Meghan Harvey, Roman Mueller [facility] 1.2.840.114 350.1.13.10 4.2.7.2.686 [id number] [facility] 2019-06-29 09:20:31 2019-06-29 10:41:00 Emergency Linda Degroot [facility] 1.2.840.114 350.1.13.10 4.2.7.2.686 [id number] [facility] 2019-06-29 00:00:00 2019-06-29 00:00:00 Orders Only Doctor Unassigned, [place] [facility] 1.2.840.114 350.1.13.10 4.2.7.2.686 [id number] [facility] Results Test Description Test Time Test [...] normal limits. Medial malleolus soft tissue swelling. [facility] XR KNEE 3 VW BILATERAL 4 16:48:11 [...] joint. Trace left knee effusion is present. [facility] VW [id number] 17:11:04HISTORY: ?Pain. S/P fall. FINDINGS: AP, lateral, oblique views of left elbow showed no acute fractureor dislocation. 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 Bony ossicle adjacent to medial humeral epicondylecould be secondary to remote trauma. CONCLUSIONS: No acute fracture or dislocation in left elbow. Elbow jointeffusion and changes of degenerative arthritis noted.[facility] LUMBAR SPINE 3 [id number] 17:09:55HISTORY: ?Low back pain. S/P fall. FINDINGS: [...] L2-L3, there is L4. CONCLUSIONS: No acute findings.[facility] W SPECIFIC [id number] 18:29:00* Test Item Value Reference Range Interpretation [...] 3267) Lab Interpretation (test cod e = 11160-8) Abnormal [facility] URINALYSIS W SPECIFIC [id number] 18:29:00* Test Item Value Reference Range Interpretation [...] 3267) Lab Interpretation (test cod e = 26582-9) Abnormal [facility] URINALYSIS W SPECIFIC [id number] 18:29:00* Test Item Value Reference Range Interpretation [...] 3267) Lab Interpretation (test cod e = 20502-6) Abnormal [facility] [id number] 15:31:00* Test Item Value Reference Range Interpretation Comme nts POCT PREG (test code = 1605) Negative On board controls acceptable with C Line (test code = 3574) Yes POCT PREG LOT # (test code = 3575) POCT PREG TEST DATE ( test code = 3576) [facility] [id number] 15:31:00* Test Item Value Reference Range Interpretation Comme nts POCT PREG (test code = 1605) Negative On board controls acceptable with C Line (test code = 3574) Yes POCT PREG LOT # (test code = 3575) POCT PREG TEST DATE ( test code = 3576) [facility] [id number] 15:31:00* Test Item Value Reference Range Interpretation Comme nts POCT PREG (test code = 1605) Negative On board controls acceptable with C Line (test code = 3574) Yes POCT PREG LOT # (test code = 3575) POCT PREG TEST DATE ( test code = 3576) [facility] URINALYSIS W SPECIFIC [id number] 19:29:00* Test Item Value Reference Range Interpretation [...] clear Lab Interpretation (test cod e = 81026-4) Abnormal [facility] [id number] 19:28:00* Test Item Value Reference Range Interpretation Comme nts POCT PREG (test code = 1605) Negative On board controls acceptable with C Line (test code = 3574) Yes POCT PREG LOT # (test code = 3575) POCT PREG TEST DATE ( test code = 3576) Lab Interpretation (test cod e = 63362-3) Normal [facility] URINALYSIS W SPECIFIC [id number] 16:43:00* Test Item Value Reference Range Interpretation [...] clear Lab Interpretation (test cod e = 18988-9) Abnormal [facility] URINALYSIS W SPECIFIC [id number] 16:43:00* Test Item Value Reference Range Interpretation [...] clear Lab Interpretation (test cod e = 77183-5) Abnormal [facility] W SPECIFIC [id number] 16:43:00* Test Item Value Reference Range Interpretation [...] clear Lab Interpretation (test cod e = 70998-4) Abnormal [facility] SoutheastTROPONIN [id number] 16:02:39* Test Item Value Reference Range Interpretation Comments TROPONIN I (test code = 6716791412) 0.014 ng/mL See_Comment [Automated message] The system [...] of biotin. Lab Interpretation (test code = 25396-1) Normal [facility]IPASE2022-10-09 15:37:17* Test Item Value Reference Range Interpretation Comme nts LIPASE (test code = 9222101829) 80 U/L 0-220 Lab Interpretation (test cod e = 22877-2) Normal [facility]N-TERMINAL [id number] 15:37:17* Test Item Value Reference Range Interpretation Comme nts NT-proBNP (test code = 4065556944) 145 pg/mL See_Comment H [Automated message] The system which generated this result transmitted reference range: <=125. The reference range was not used to interpret this result as normal/abnormal. DUNCAN (test code = DUNCAN) Biotin has been reported to cause a negative bias, interpret results relative to patient's use of biotin. Lab Interpretation (test code = 25004-3) Abnormal [facility] SoutheastTHYROID STIMULATING [id number] 15:37:17 * Test Item Value Reference Range Interpretation Comme nts TSH (test code = 4579244252) See_Comment Biotin has been reported to cause a negative bias, interpret results relative to patient's use of biotin. [Automated message] The system which generated this result transmitted reference range: 0.45 - 4.70 mIU/L. The reference range was not used to interpret this result as normal/abnormal. Lab Interpretation (test code = 87692-4) Normal [facility]MAGNESIUM2022-10-09 15:37:17* Test Item Value Reference Range Interpretation Comme nts MAGNESIUM (test code = 1435633049) 1.6 mg/dL 1.7-2.4 L Lab Interpretation (test cod e = 56801-5) Abnormal [facility]. METABOLIC PANEL (74098)2022-09-01 15:37:16* Test Item Value Reference Range Interpretation Comme nts NA (test code = 9234201626) 139 mmol/L 135-145 K (test code = 0140993401) 4.0 mmol/L 3.5-5 CL (test code = 0544162924) 100 mmol/L 98-108 CO2 TOTAL (test code = 2986845902) 27 mmol/L 23-31 AGAP (test code = 2297365951) 2-16 BUN (test code = 1825871288) 17 mg/dL 7-23 GLUCOSE (test code = 0412487117) 154 mg/dL 70-110 H CREATININE (test code = 8059858100) 0.62 mg/dL 0.5-1.04 TOTAL BILI (test code =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 Age/Sex: 60 / F Admit/Reg Date: 08/10/21 Loc: [facility] Room: Report Number: [id number]: Christy Partida DO Arrival - [...] (Auto) 76.8 H, Lymph % (Auto) 16.9, [place] % (Auto) 5.5, Eos % (Auto) 0.1, Baso % (Auto) 0.3, Neut # (Auto) 7.3, Lymph # (Auto) 1.60, [place] # (Auto) 0.52, Eos # (Auto) 0.01, [...] MD [Primary Care Provider] - ([facility] [address] [place] [address], [facility] [address] [id number] Telephone #[phone] [place] [address] ) Print Language: Slovak Dictated By: Christy Partida DO Signed By: Christy Partida DO 08/10/21 1351 DD/ 1204 TD/TT: 08/10/21 1204 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
--- NOTE | 2024-09-22 23:11 | EDPHYS ---
Physician Documentation [facility] Name: Afua Cunningham Age: 63 yrs Sex: Female : 1960 Arrival Date: 09/22/2024 Time: 22:42 Bed 24 Private MD: ED Physician Samy Wild HPI: 09/22 23:23 This 63 yrs old Black Female presents to ER via Unassigned with complaints of Knee kb Pain, Back Pain. 23:23 Pt is a 63 year old female who presents for low back and knee pain that is chronic but kb has been worse since last week after a fall. Denies numbness, tingling, bowel/bladder issues. . Historical: - Allergies: 23:30 No Known Allergies; jb4 - PMHx: 23:30 Anxiety; Back pain; fx in middle of back; Depression; Asthma; Chronic pain; jb4 Hypertension; GERD; UTI; Schizophrenia; - PSHx: 23:30 tubal ligation; jb4 - Immunization history:: Adult Immunizations up to date. ROS: 23:25 Constitutional: As per HPI kb Exam: 23:25 Constitutional: This is a well developed, well nourished patient who is awake, alert, kb and in no acute distress. Head/Face: Normocephalic, atraumatic. ENT: Moist Mucous membranes Cardiovascular: Regular rate Respiratory: Respirations even and unlabored. No increased work of breathing. Talking in full sentences Abdomen/GI: Soft, non-tender. No distention Skin: Warm, dry with normal turgor. Normal color. MS/ Extremity: Pulses equal, no cyanosis. Neurovascular intact. Full, normal range of motion. Neuro: Awake and alert, GCS 15, oriented to person, place, time, and situation. 23:25 Back: pain, that is mild, of the lumbar area, Vital Signs: 22:45 BP 105 / 56; Pulse 80; Resp 16; Temp 98.5; Pulse Ox 100% on R/A; Weight 74.84 kg (R); jb4 Height 5 ft. 1 in. ; Pain 10/10; 22:45 Body Mass Index 31.18 (74.84 kg, 154.94 cm) jb4 22:45 Pain Scale: Adult jb4 MDM: 23:03 Medical Screening Exam initiated kb 23:26 Differential diagnosis: strain, Herniated disc chronic pain. Data reviewed: vital kb signs, nurses notes. Counseling: I had a detailed discussion with the patient and/or guardian regarding the historical points, exam findings, and any diagnostic results supporting the discharge/admit diagnosis, the need for outpatient follow up, a family practitioner, to return to the emergency department if symptoms worsen or persist or if there are any questions or concerns that arise at home. Administered Medications: 23:24 Drug: Hydrocodone-Acetaminophen PO (7.5 mg-325 mg) 1 tabs PO once Route: PO; jb4 23:24 Follow up: Response: Medication administered at discharge. jb4 23:24 Drug: Ibuprofen PO 800 mg PO once Route: PO; jb4 23:25 Follow up: Response: Medication administered at discharge. jb4 Disposition Summary: 09/22/24 23:11 Discharge Ordered Notes: Location: Home kb Condition: Stable kb Diagnosis - Chronic pain syndrome kb Followup: kb - With: Emergency Department - When: As needed - Reason: Worsening of condition Followup: kb - With: Private Physician - When: 2 - 3 days - Reason: Recheck today's complaints, Continuance of care, Re-evaluation by your physician Discharge Instructions: - Discharge Summary Sheet kb - Chronic Back Pain, Jmbi-go-Ecbb kb Forms: - Medication Reconciliation Form kb - Antibiotic Education kb - Prescription Opioid Use kb - Patient Portal Instructions kb - Leadership Thank You Letter kb Signatures: Misti Barragan FNP-C FNP-Fernando Phelan RN RN jb4 Corrections: (The following items were deleted from the chart) 23:25 23:07 Jason wrap-joint ordered. gelacio jb4
[2024-09-22] MEDS ORDERED: IBUPROFEN 400 MG TAB ONE (23:17)
[2024-09-22] MEDS ORDERED: HYDROCODONE/APAP 7.5/325 MG TAB ONE (23:18)
--- NOTE | 2024-09-22 23:33 | ER ---
Nurse's Notes [facility] Name: Afua Cunningham Age: 63 yrs Sex: Female : 1960 Arrival Date: 09/22/2024 Time: 22:42 Bed 24 Private MD: Diagnosis: Chronic pain syndrome Presentation: 09/22 22:45 Chief complaint: EMS states: Pt reports pain in her lower back and DEBBI knees. Reports jb4 chronic lower back pain and it is worse tonight due to lifting something heavy 1.5 weeks ago. 22:45 Coronavirus screen: At this time, the client does not indicate any symptoms associated jb4 with coronavirus-19. Ebola Screen: No symptoms or risks identified at this time. Initial Sepsis Screen: Does the patient meet any 2 criteria? No. Patient's initial sepsis screen is negative. Does the patient have a suspected source of infection? No. Patient's initial sepsis screen is negative. Risk Assessment: Do you want to hurt yourself or someone else? Patient reports no desire to harm self or others. Onset of symptoms was September 22, 2024. Transition of care: patient was not received from another setting of care. 22:45 Method Of Arrival: EMS: [facility] jb4 22:45 Acuity: ASHA 4 jb4 Triage Assessment: 23:30 General: Appears in no apparent distress. comfortable, Behavior is calm, cooperative. jb4 Pain: Complains of pain in low back area, right knee and left knee Pain does not radiate. Pain currently is 10 out of 10 on a pain scale. Neuro: Level of Consciousness is awake, alert, obeys commands, Oriented to person, place, time, situation. Cardiovascular: Patient's skin is warm and dry. Respiratory: Airway is patent Respiratory effort is even, unlabored, Respiratory pattern is regular, symmetrical. Derm: Skin is intact, Skin is pink, warm \T\ dry. Musculoskeletal: Circulation, motion, and sensation intact. Range of motion: intact in all extremities. Historical: - Allergies: 23:30 No Known Allergies; jb4 - PMHx: 23:30 Anxiety; Back pain; fx in middle of back; Depression; Asthma; Chronic pain; jb4 Hypertension; GERD; UTI; Schizophrenia; - PSHx: 23:30 tubal ligation; jb4 - Immunization history:: Adult Immunizations up to date. Screenin:31 [facility] ED Fall Risk Assessment (Adult) History of falling in the last 3 months, jb4 including since admission No falls in past 3 months (0 pts) Confusion or Disorientation No (0 pts) Intoxicated or Sedated No (0 pts) Impaired Gait No (0 pts) Mobility Assist Device Used No (0 pt) Altered Elimination No (0 pt) Score/Fall Risk Level 0 - 2 = Low Risk Oriented to surroundings, Maintained a safe environment. Abuse screen: Denies threats or abuse. Nutritional screening: No deficits noted. Tuberculosis screening: No symptoms or risk factors identified. Assessment: 23:31 Reassessment: see triage note. jb4 Vital Signs: 22:45 BP 105 / 56; Pulse 80; Resp 16; Temp 98.5; Pulse Ox 100% on R/A; Weight 74.84 kg (R); jb4 Height 5 ft. 1 in. ; Pain 10/10; 22:45 Body Mass Index 31.18 (74.84 kg, 154.94 cm) jb4 22:45 Pain Scale: Adult jb4 ED Course: 22:45 Patient arrived in ED. jj6 23:03 Misti Barragan FNP-C is [facility]. kb 23:03 Samy Wild MD is Attending Physician. kb 23:29 Triage completed. jb4 23:30 Arm band placed on right wrist. jb4 23:31 Patient has correct armband on for positive identification. Bed in low position. Call jb4 light in reach. Side rails up X 1. Provided Education on: discharge instructions.. 23:31 No provider procedures requiring assistance completed. Patient did not have IV access jb4 during this emergency room visit. Administered Medications: 23:24 Drug: Hydrocodone-Acetaminophen PO (7.5 mg-325 mg) 1 tabs PO once Route: PO; jb4 23:24 Follow up: Response: Medication administered at discharge. jb4 23:24 Drug: Ibuprofen PO 800 mg PO once Route: PO; jb4 23:25 Follow up: Response: Medication administered at discharge. jb4 Medication: 23:31 VIS not applicable for this client. jb4 Outcome: 23:11 Discharge ordered by . kb 23:31 Discharged to [facility] to call for ride home jb4 23:31 Condition: stable 23:31 Discharge instructions given to patient, Instructed on discharge instructions, follow up and referral plans. Demonstrated understanding of instructions, follow-up care, 23:33 Patient left the ED. jb4 Signatures: Misti Barragan FNP-C FNP-Fernando Phelan, RN RN jb4 Rosina Dyson jj6
[2024-09-23 00:27] VITALS: BP 105/56; TEMP 98.5; O2SAT 100
== END 2024-09-22 23:33 | disposition home or self-care (01) ==
LOC: ER 22:42
DX: G89.4 Chronic pain syndrome (principal)
CPT/HCPCS: 99283